=== PATIENT | female | born 1960 | race Caucasian/White ===

== ENCOUNTER → 2020-05-19 11:07 | Outpatient (BNVA) | payer OTHER, SELFPAY | PROVIDERS: PCP Internal Medicine; Visit Provider Surgery | DX: K42.9 Umbilical hernia without obstruction or gangrene (principal); M62.08 Separation of muscle (nontraumatic), other site | CPT/HCPCS: 99202 ==

== ENCOUNTER 2020-06-28 06:02 | Day surgery (SDC) | payer OTHER, SELFPAY ==
[2020-06-22 11:20] VITALS: BMI 30.2
--- NOTE | 2020-06-27 08:29 | HO.ANESPROP2 ---
Documented by User: Sol Yusuf 06/27/20 08:29 HPI - Anesthesia Eval Consult details Narrative: 60yo F for Hernia Repair Umbilical, Poss Mesh PMFSH Active Problems Active Problems: All Active Problems (Updated 06/22/20 @ 11:11 by Kayleigh Rogel) Diastasis recti (Acute) Umbilical hernia (Acute) Compression fracture of L1 lumbar vertebra (Acute) Dupuytren's contracture of left hand (Acute) Essential hypertension (Acute) Ventral hernia (Acute) Urinary incontinence (Acute) PTSD (post-traumatic stress disorder) (Acute) Bipolar 2 disorder (Acute) Past Medical History Medical History Anxiety Arthritis Bipolar 2 disorder Compression fracture of L1 lumbar vertebra Diastasis recti Dupuytren's contracture of left hand Essential hypertension Lumbar disc herniation On beta baldemar at home PTSD (post-traumatic stress disorder) Umbilical hernia Urinary incontinence Ventral hernia Family History Family History Father Diabetes mellitus Mother COPD (chronic obstructive pulmonary disease) Sister Diabetes mellitus Glaucoma Surgical History Surgical History History of lumbar fusion Hx of colonoscopy Hx of elbow surgery Hx of repair of left rotator cuff Social History Social History Are you a primary child care lead teacher to a significant other at home: No Alcohol intake: current Alcohol intake frequency: a few times a week Smoking Status: Never smoker Are you DNR?: No Advance Directives: No Advance Directives Information Provided: No Advance Directives on File: No Recently lost weight without trying: No Eating poorly because of decreased appetite: No Nutrition Risks: No Nutritional Risk Meds Allergies Allergy/AdvReac Type Severity Reaction Status Date / Time No Known Allergies Allergy Verified 06/22/20 11:12 [No Known Allergies*] Home Medications Medication Instructions Recorded Confirmed Last Taken Type clonazepam 0.5 mg tablet 0.5 mg PO BEDTIME 04/26/20 06/22/20 06/28/20 History risperidone 2 mg tablet 2 mg PO BID 04/26/20 06/22/20 06/28/20 History vortioxetine 5 mg tablet 5 mg PO DAILY 04/26/20 06/22/20 Unknown History hydroxyzine pamoate 25 mg capsule 25 mg PO BID 05/19/20 06/22/20 Unknown History sertraline 1 tab PO QAM 06/22/20 06/22/20 Unknown History Exam Exam Date and Time: June 27, [id number] Height,Weight and Vital Signs: Height 5 ft 2 in Weight 75.07 kg Assessment and Plan Assessment Anesthesia Assessment: Chart Reviewed Documented by User: Dee Dee Vallejo 06/28/20 07:11 [facility] Past Medical History Medical History Anxiety Arthritis Bipolar 2 disorder Compression fracture of L1 lumbar vertebra Diastasis recti Dupuytren's contracture of left hand Essential hypertension Lumbar disc herniation On beta baldemar at home PTSD (post-traumatic stress disorder) Umbilical hernia Urinary incontinence Ventral hernia Family History Family History Father Diabetes mellitus Mother COPD (chronic obstructive pulmonary disease) Sister Diabetes mellitus Glaucoma Surgical History Surgical History History of lumbar fusion Hx of colonoscopy Hx of elbow surgery Hx of repair of left rotator cuff Social History Social History Are you a primary child care lead teacher to a significant other at home: No Alcohol intake: current Alcohol intake frequency: a few times a week Smoking Status: Never smoker Are you DNR?: No Advance Directives: No Advance Directives Information Provided: No Advance Directives on File: No Recently lost weight without trying: No Eating poorly because of decreased appetite: No Nutrition Risks: No Nutritional Risk Meds Allergies Allergy/AdvReac Type Severity Reaction Status Date / Time No Known Allergies Allergy Verified 06/22/20 11:12 [No Known Allergies*] Home Medications Medication Instructions Recorded Confirmed Last Taken Type clonazepam 0.5 mg tablet 0.5 mg PO BEDTIME 04/26/20 06/22/20 06/28/20 History risperidone 2 mg tablet 2 mg PO BID 04/26/20 06/22/20 06/28/20 History vortioxetine 5 mg tablet 5 mg PO DAILY 04/26/20 06/22/20 Unknown History hydroxyzine pamoate 25 mg capsule 25 mg PO BID 05/19/20 06/22/20 Unknown History sertraline 1 tab PO QAM 06/22/20 06/22/20 Unknown History Exam Airway Mallampati Class: II TM Dist: >3cm Neck ROM: Full Denture: Upper Assessment and Plan Assessment Anesthesia Assessment: Anesthesia Plan Discussed and Chart Reviewed Final Anesthetic Review NPO: Yes ASA Class: II Final Preanesthetic Review: No Changes in Pt Med Stat, Meds/Allgs Chart Reviewed, Consent Obtained/Reviewed and Anes Risks/Benef Reviewed Patient Risk: Low Procedure Risk: Low Assessment/Block/Sedation in SS: Assess/Block/Sedation-SS Anesthetic Plan Anesthetic Plan: GA Disposition: Standard PACU
[2020-06-28 06:13] VITALS: BP 149/73; PULSE 85; RESP 20; TEMP 36.3; O2SAT 97
[2020-06-28] MEDS: Lactated Ringers 1,000 ML 100 ML IVCONT (06:32)
--- NOTE | 2020-06-28 07:24 | MHC.SHP ---
Pre-Procedural Eval Section B Chief Complaint: Umbilical Hernia Allergies: Allergies Allergy/AdvReac Type Severity Reaction Status Date / Time No Known Allergies Allergy Verified 06/22/20 11:12 [No Known Allergies*] Plan I have reviewed the history and physical and performed a pertinent physical examination on my patient. No changes have occurred unless specified.
--- NOTE | 2020-06-28 08:17 | P.OP_ITS ---
Operative Note Operative Note Date of Service: 06/28/20 Narrative: Preop diagnosis: Umbilical hernia Postop diagnosis: Umbilical hernia Major: Repair of umbilical hernia with Ventralex mesh Surgeon: Carmelo Viveros MD Blacksmith Helper: ALEX Olvera student The patient is a 60-year-old female who was seen in the office because of an umbilical hernia. This was reducible. She wanted to proceed with repair. She understood technique of repair with mesh placement. She was aware of the risks, benefits, and alternatives. She was brought to the operating room and placed supine on the table under general anesthesia via laryngeal mask airway. The umbilical area was prepped and draped in the usual sterile fashion. Surgical time-out was done. The patient received cefazolin 2 g IV preoperatively I infiltrated the planned line of incision on the supraumbilical area lidocaine 1%. I made a transverse curvilinear incision using a blade 15. This was carried down to the full-thickness of skin and subcutaneous fat until we visualized fascia. I lifted the umbilicus as a flap off of the fascia with sharp dissection using the Metzenbaum scissors. By doing so we were able to expose the entire hernia. This contained fat. I dissected fibrous adhesions tethering the herniated fat from the fascial edge using Metzenbaum scissors. By doing so, I was able to release the hernia from the fascia circumferentially and was able to reduce this completely. I applied a [place] clamp to the fascial edge. The fascial defect was about 1.5 cm in diameter. I examined the underside of the fascial edge and did some blunt dissection to make sure that we had enough space for the mesh. I then positioned a small sized Ventralex mesh under the fascia. This was flattened. I then secured this mesh with Prolene 2-0 sutures from the fascial edge to the Prolene straps on each side. The Prolene straps were then trimmed. I closed the fascia with a [id number] Maxon 1 stitch. I tucked the umbilicus to the fascia with a Dexon 3-0 states to recreate the dimple. I closed the skin with running subcuticular Dexon 4-0 stitch. Infiltrated the area with Marcaine 0.5% for postop analgesia. Steri-Strips and dressings were applied The procedure was then completed. The patient tolerated the procedure well. There were no complications noted. Initial and final counts of sponges and instruments were correct. Estimated blood loss was about 2 cc. The patient is extubated without difficulty and transferred to the recovery room with stable vital signs.
[2020-06-28 08:18] VITALS: BP 110/77; PULSE 85; RESP 16; TEMP 36.4; O2SAT 100
[2020-06-28 08:23] VITALS: BP 109/65; PULSE 87; RESP 16; O2SAT 100
--- NOTE | 2020-06-28 08:25 | P.BOP_ITS ---
Brief Operative Note Date of Service: 06/28/20 Pre-op diagnosis: Umbilical hernia Post-op diagnosis: same Procedure: Repair of umbilical hernia with Ventralex mesh Surgeon: Carmelo Viveros MD Anesthesia: GLMA Was an Radiation Protection Specialist used for this Procedure?: No Estimated blood loss (mL): 2 Pathology: none sent Condition: stable Disposition: PACU
[2020-06-28 08:28] VITALS: BP 106/65; PULSE 80; RESP 16; O2SAT 100
[2020-06-28 08:33] VITALS: BP 96/51; PULSE 84; RESP 16; O2SAT 94
[2020-06-28 08:48] VITALS: BP 115/68; PULSE 79; RESP 16; TEMP 36.4; O2SAT 95
== END 2020-06-28 09:11 | disposition home or self-care (01) ==
PROVIDERS: PCP Internal Medicine; Visit Provider Surgery
PROC: (CPT 49585; principal; 2020-06-28 07:30)
DX: K42.9 Umbilical hernia without obstruction or gangrene (principal); K66.0 Peritoneal adhesions (postprocedural) (postinfection); M62.08 Separation of muscle (nontraumatic), other site; I10 Essential (primary) hypertension; F31.81 Bipolar II disorder; F43.10 Post-traumatic stress disorder, unspecified; Z79.899 Other long term (current) drug therapy; Z87.891 Personal history of nicotine dependence
CPT/HCPCS: 49585; C1781; J0690; J1100; J1170; J1885; J2250; J2405; J3010

== ENCOUNTER 2021-01-13 08:20 | Outpatient (REF) | payer OTHER, SELFPAY ==
[2021-01-13 12:28] LABS: Alanine Aminotransferase 35 U/L (0-31); Alkaline Phosphatase 92 U/L (39-117); Aspartate Amino Transferase 26 U/L (5-31); Bilirubin Direct < 0.2 mg/dL (0.0-0.5); Bilirubin Total 0.4 mg/dL (0.0-1.0)
== END 2021-01-13 08:21 | disposition home or self-care (01) ==
LOC: HO.HMGCLDS 08:20
PROVIDERS: Visit Provider Podiatrist
DX: B35.1 Tinea unguium (principal)
CPT/HCPCS: 36415; 80076

== ENCOUNTER 2021-05-26 11:35 | Observation (INO) | payer OTHER, SELFPAY ==
--- NOTE | ~2021-05-26 | NM_ITS ---
Lexiscan Myocardial perfusion study Indication: Abnormal EKG, assess for coronary disease and ischemia Technique: The patient was brought in for a Lexiscan perfusion study on 05/31/2021 and was injected 0.4 mg of Lexiscan intravenously. Within a minute of this injection 25 mCi of sestamibi was given intravenously. Images were obtained using the SPECT gamma camera interlaced with the gating device. Images were obtained in supine position. Resting perfusion study was performed on 05/30/2021. Patient was administered 25 mCi of sestamibi intravenously at rest. Images were then obtained in supine position. Total DLP 87mGy- Images were processed with the software and compared side to side in short axis, horizontal long axis and vertical long axis views. Findings: Raw acquisition was reviewed. The stress perfusion study showed no significant perfusion abnormality. With CT attenuation correction, that is overall diminished perfusion in all areas and hence likely technical. The gated study shows normal LV systolic function with calculated LVEF of 48%, but visually > 60%. LV cavity is normal in size. The gated study shows normal wall thickening and contraction of segments. Resting study shows no significant perfusion abnormality. Gating at rest reveals normal wall motion with ejection fraction at 70%. The findings are consistent with no reversible or fixed perfusion defects. NM/NM norm perf SPECT rest & str Impression: 1. Myocardial perfusion imaging study shows normal myocardial perfusion. 2. Gated LVEF is 70% during rest. Stress perfusion calculated at 48% but visually appears much higher. 3. Transient ischemic dilatation not present. EKG component of the test reported separately.
--- NOTE | 2021-05-26 11:41 | ED.PSYCH ---
HPI - Psych General Chief Complaint: Psychiatric Symptoms Stated Complaint: crisis Time Seen by Provider: 05/26/21 11:40 Source: patient Mode of arrival: EMS Limitations: no limitations History of Present Illness MD complaint: suicidal ideation and feels depressed Onset (ago): week(s) Duration: getting worse History of same: Yes Relieving factors: none Exacerbating factors: none Associated psychiatric symptoms: depression and suicidal ideation Associated symptoms: denies other symptoms Treatments prior to arrival: placed on mental health hold If self harm: admits thoughts of self harm and has plan Related Data Home Medications Medication Instructions Recorded Confirmed clonazepam 0.5 mg tablet 0.5 mg PO BEDTIME 04/26/20 06/22/20 risperidone 2 mg tablet 2 mg PO BID 04/26/20 06/22/20 vortioxetine 5 mg tablet 5 mg PO DAILY 04/26/20 06/22/20 (Trintellix) hydroxyzine pamoate 25 mg capsule 25 mg PO BID 05/19/20 06/22/20 sertraline 100 mg tablet 1 tab PO QAM 06/22/20 06/22/20 Previous Rx's Medication Instructions Recorded ibuprofen 600 mg tablet 600 mg PO Q6H PRN #30 tab 06/28/20 oxycodone-acetaminophen 5 mg-325 1 - 2 tab PO Q4-6H PRN #30 tab 06/28/20 mg tablet (Percocet) lisinopril 20 mg tablet 20 mg PO QAM #90 tab 01/20/21 metoprolol succinate 50 mg 50 mg PO DAILY #90 tab 01/20/21 tablet,extended release 24 hr Allergies Allergy/AdvReac Type Severity Reaction Status Date / Time No Known Allergies Allergy Verified 06/22/20 11:12 [No Known Allergies*] Review of Systems Review of Systems: Constitutional : No Fever, No Chills ENT/Mouth : No Ear Pain, No Nasal Congestion, No sore throat Eyes: No Eye Pain, No Swelling, No Redness Cardiovascular : No Chest Pain, No SOB Respiratory : No Cough, No Sputum, No Dyspnea Gastrointestinal : No Nausea, No Vomiting, No Diarrhea, No Hematochezia, No Melena Genitourinary : No Dysuria, No Urinary Frequency, No Hematuria Musculoskeletal : No Myalgias Skin : No Skin Lesions, No rash Neuro : No Weakness, No Numbness, No Paresthesias, No Dizziness, No Headache Psych : positive Anxiety, positive Depression, positive SI no HI Heme/Lymph: No Lymphadenopathy Endocrine : No Polyuria, No Polydipsia All other systems reviewed and are negative [facility] Past Medical History Source: old records reviewed Medical History Anxiety Arthritis Bipolar 2 disorder Compression fracture of L1 lumbar vertebra Diastasis recti Dupuytren's contracture of left hand Essential hypertension Hx of suicide attempt Lumbar disc herniation On beta baldemar at home PTSD (post-traumatic stress disorder) Umbilical hernia Urinary incontinence Ventral hernia Surgical History History of lumbar fusion Hx of colonoscopy Hx of elbow surgery Hx of repair of left rotator cuff Family History Family History Father Diabetes mellitus Mother COPD (chronic obstructive pulmonary disease) Sister Diabetes mellitus Glaucoma Social History Social History (Updated 05/26/21 @ 11:53 by Radha Forde DO) Are you a primary managed care liaison to a significant other at home: No Alcohol intake: current Alcohol intake frequency: a few times a week Patient Tobacco Use Status: Tobacco use Unknown Advance Directives: No Advance Directives Information Provided: No Patient : Yes Physical Exam Vital Signs: Vital Signs: Last Vital Signs Temp 97.9 F 05/26/21 12:08 Pulse 87 05/26/21 13:34 Resp 15 05/26/21 13:34 BP 102/72 05/26/21 13:34 Pulse Ox 99 05/26/21 13:34 BMI result Body Mass Index 28.0 Appearance: Alert. Oriented X3. No acute distress. I do not want to live Agitated at times, talks loudly Eyes: Pupils equal, round and reactive to light. ENT: Pharynx normal. Neck: Normal inspection. Neck supple. CVS: Normal heart rate and rhythm. Pulses normal. Respiratory: No respiratory distress. Breath sounds normal. Abdomen: Soft and nontender. Skin: Skin warm and dry. Normal skin color. Normal skin turgor. Extremities: No lower extremity edema. No calf ttp Neuro: Oriented X 3. No motor deficit. No sensory deficit. Cn2-12 intact Course Course Course Narrative: Physician observation started at 201pm. Patient placed in physician observation because the patient needed more time for labs to be done as well as placement given bed search. At the time observation was started the patient's vitals were stable, patient is alert and oriented but slightly agitated, Neuro: nonfocal, CV RRR, Lungs clear MDM - Psych MDM Narrative Medical decision making narrative: 61 yo female with hx of HTN, PTSD, bipolar here with SI and plan to kill herself. Section 12 from community and bed search already in place. She denies any medical issues at this time, requesting anxiety medication. Will obtain labs, PO anxiolytic. Dispo pending bed search. Lab Data Labs: Lab Results 05/26/21 05/26/21 05/26/21 Range/Units 13:01 13:01 13:01 Urine Color YELLOW Urine Appearance CLEAR Urine pH 6.5 (5.0-8.0) Ur Specific [place] <= 1.005 (1.005-1.025) Urine Protein NEG (NEG-TRACE) MG/DL Urine Glucose (UA) NEG (NEG) MG/DL Urine Ketones NEG (NEG) MG/DL Urine Blood NEG (NEG) Urine Nitrite NEG (NEG) Ur Leukocyte Esterase NEG (NEG) Urine Opiates Screen Not Detected (Not Detect) Urine Fentanyl Screen Not Detected (Not Detect) Ur Barbiturates Screen Not Detected (Not Detect) Ur Phencyclidine Scrn Not Detected (Not Detect) Ur Amphetamines Screen Not Detected (Not Detect) U Benzodiazepines Scrn Not Detected (Not Detect) Urine Cocaine Screen Not Detected (Not Detect) U Marijuana (THC) Screen Not Detected (Not Detect) COVID-19 ([facility]O) Negative (Negative) COVID-19 Clin Com See Note Discharge Plan Discharge Clinical Impression: Suicidal ideation Patient Disposition: Still a Patient Prescriptions: No Action lisinopril 20 mg tablet 20 mg PO QAM Qty: 90 0RF metoprolol succinate 50 mg tablet extended release 24 hr 50 mg PO DAILY Qty: 90 0RF sertraline 100 mg tablet 1 tab PO QAM 0RF oxycodone-acetaminophen [Percocet] 5-325 mg tablet 1 - 2 tab PO Q4-6H PRN (Reason: pain) Qty: 30 0RF ibuprofen 600 mg tablet 600 mg PO Q6H PRN (Reason: pain) Qty: 30 0RF Trintellix 5 mg tablet 5 mg PO DAILY 0RF risperidone 2 mg tablet 2 mg PO BID 0RF clonazepam 0.5 mg tablet 0.5 mg PO BEDTIME 0RF Rx Instructions: administer 30 minutes before bedtime hydroxyzine pamoate 25 mg capsule 25 mg PO BID 0RF
[2021-05-26] MEDS: clonazePAM 1 MG TABLET PO (11:56)
[2021-05-26 12:08] VITALS: BP 160/98; BP 180/141; PULSE 85; PULSE 90; RESP 20; TEMP 36.6; O2SAT 98; O2SAT 99; BMI 28.0
[2021-05-26 13:15] LABS: Appearance Urine CLEAR; Color Urine YELLOW; Glucose Urine UA NEG (NEG); Leukocyte Esterase Urine NEG (NEG); Nitrite Urine NEG (NEG); PH 6.5 (5.0-8.0); Specific Gravity - Urine <= 1.005 (1.005-1.025); Urine Blood NEG (NEG); Urine Ketones NEG (NEG); Urine Protein NEG (NEG-TRACE)
[2021-05-26 13:33] LABS: COVID-19 Test Negative (Negative); IDNOW Serial# 16C4AD1C
[2021-05-26 13:34] VITALS: BP 102/72; PULSE 87; RESP 15; O2SAT 99
[2021-05-26 13:39] LABS: Amphetamine Screen Urine Not Detected (Not Detect); Barbiturates, Urine Not Detected (Not Detect); Benzodiazepines Screen Urine Not Detected (Not Detect); Cannabinoid Screen Urine Not Detected (Not Detect); Cocaine Screen Urine Not Detected (Not Detect); Fentanyl, urine Not Detected (Not Detect); Opiate Screen Urine Not Detected (Not Detect); Phencyclidine Screen Urine Not Detected (Not Detect)
[2021-05-26 14:08] LABS: MANUAL DIFF FLAG NO
[2021-05-26 14:10] LABS: Basophils Absolute Auto 0.1 X10*3/uL (0.0-0.2); Basophils Percent Auto 0.3 % (0-2); Eosinophils Absolute Auto 0.1 X10*3/uL (0.0-0.4); Eosinophils Percent Auto 0.4 % (0-4); Hematocrit 43.3 % (37.0-47.0); Hemoglobin 14.7 g/dl (12.0-16.0); Imm Gran Abs Auto 0.07 X10*3/uL (0.00-0.03); Imm Gran Pct Auto 0.5 % (0.0-0.4); Lymphocytes Absolute Auto 1.8 X10*3/uL (1.2-4.9); Lymphocytes Percent Auto 12.5 % (20-40); Mean Corpuscular HGB Conc 33.9 g/dl (31.0-35.0); Mean Corpuscular Hemoglobin 30.3 pg (27.0-33.0); Mean Corpuscular Volume 89.3 fL (80.0-98.0); Monocytes Absolute Auto 0.3 X10*3/uL (0.1-1.2); Neutrophils Absolute Auto 12.4 x10*3/uL (2.0-8.3); Neutrophils Percent Auto 84.3 % (45-73); Platelet Count 353 X10*3/uL (160-400); Red Blood Count 4.85 X10*6/uL (4.20-5.50); Red Cell Distribution Width 12.1 % (11.0-16.0); White Blood Count 14.7 X10*3/uL (4.8-10.8)
[2021-05-26 14:23] LABS: Ethanol < 10 mg/dL
[2021-05-26 14:27] LABS: Alanine Aminotransferase 34 U/L (0-31); Albumin Level 4.4 g/dL (3.5-5.0); Alkaline Phosphatase 92 U/L (39-117); Anion Gap 14 (12-20); Aspartate Amino Transferase 19 U/L (5-31); Bilirubin Direct 0.2 mg/dL (0.0-0.5); Bilirubin Total 0.5 mg/dL (0.0-1.0); Blood Urea Nitrogen 10 mg/dL (9-16); Calcium 10.2 mg/dL (8.4-10.2); Carbon Dioxide 26 mmol/L (22-29); Chloride 97 mmol/L (96-108); Creatinine Clr Calc Pharmacy 77.9; Estimated Glomerular Filt Rate > 60; Glucose Random 87 mg/dL (60-115); Sodium 133 mmol/L (135-145); Total Protein 7.6 g/dL (6.5-8.0)
[2021-05-26 18:00] VITALS: BP 147/92; PULSE 71; RESP 20; TEMP 37.1; O2SAT 97
[2021-05-26] MEDS: Melatonin 3 MG TABLET 6 MG PO (20:03)
[2021-05-26] MEDS: Mirtazapine 7.5 MG TABLET PO (20:03)
[2021-05-26] MEDS: QUEtiapine Fumarate 50 MG TABLET PO (20:03)
[2021-05-27 02:42] VITALS: BP 107/68; PULSE 82; RESP 17; TEMP 37.1; O2SAT 97
[2021-05-27] MEDS: Metoprolol Succinate ER 50 MG TAB.ER.24H PO (08:34)
[2021-05-27] MEDS: Multivitamin TABLET 1 TAB PO (08:35)
[2021-05-27] MEDS: Thiamine HCL 100 MG TABLET PO (08:35)
[2021-05-27] MEDS: Docusate Sodium 100 MG CAPSULE PO (08:35)
[2021-05-27 09:11] VITALS: BP 128/83; PULSE 86; RESP 18; TEMP 36.8; O2SAT 96
--- NOTE | 2021-05-27 19:05 | PC.NURSE ---
Took report from Lupis to assume care of Pt, Pt resting and watching tv, Pt calm/cooperative at this time, safety maintained, this RN continues to monitor.
[2021-05-27] MEDS: Melatonin 3 MG TABLET 6 MG PO (21:21)
[2021-05-27] MEDS: Mirtazapine 7.5 MG TABLET PO (21:21)
--- NOTE | 2021-05-27 21:25 | PC.NURSE ---
Pt took bedtime meds without incident, Pt calm/cooperative, safety maintained, this RN continues to monitor.
[2021-05-27] MEDS: QUEtiapine Fumarate 50 MG TABLET PO (21:30)
--- NOTE | 2021-05-28 00:06 | PC.NURSE ---
Pt sleeping, chest rise and fall observed, safety maintained, this RN continues to monitor.
[2021-05-28 02:06] VITALS: BP 112/79; PULSE 88; RESP 17; TEMP 37.1; O2SAT 95
--- NOTE | 2021-05-28 04:32 | PC.NURSE ---
Pt awake to use restroom, Pt calm/cooperative at this time, safety maintained, this RN continues to monitor.
--- NOTE | 2021-05-28 06:36 | PC.NURSE ---
Pt resting watching tv, safety maintained, this RN continues to monitor.
[2021-05-28] MEDS: Thiamine HCL 100 MG TABLET PO (08:52)
[2021-05-28] MEDS: Docusate Sodium 100 MG CAPSULE PO (08:52)
[2021-05-28] MEDS: Metoprolol Succinate ER 50 MG TAB.ER.24H PO (08:52)
[2021-05-28] MEDS: Multivitamin TABLET 1 TAB PO (08:52)
[2021-05-28 09:53] VITALS: BP 136/87; PULSE 75; RESP 18; TEMP 36.8; O2SAT 100
--- NOTE | 2021-05-28 14:09 | PC.NURSE ---
pt calm and cooperative, spending time in her room, NAD at this time. will continue to monitor. pt awaiting inpatient bed.
[2021-05-28 15:53] VITALS: BP 140/83; PULSE 80; RESP 15; TEMP 36.8; O2SAT 98
[2021-05-28] MEDS: Mirtazapine 7.5 MG TABLET PO (20:31)
[2021-05-28] MEDS: Melatonin 3 MG TABLET 6 MG PO (20:31)
[2021-05-28] MEDS: QUEtiapine Fumarate 50 MG TABLET PO (20:35)
[2021-05-28 20:36] VITALS: RESP 16
[2021-05-28 23:15] VITALS: BP 132/76; PULSE 84; RESP 16; TEMP 36; O2SAT 97
--- NOTE | 2021-05-29 | ECG_ITS ---
Test Reason : MEDICAL CLEARANCE Blood Pressure : / mmHG Vent. Rate : 066 BPM Atrial Rate : 066 BPM P-R Int : 146 ms QRS Dur : 082 ms QT Int : 416 ms P-R-T Axes : 050 030 145 degrees QTc Int : 436 ms Normal sinus rhythm ST & Marked T wave abnormality, consider anterolateral ischemia Abnormal ECG When compared with ECG of 18-APR-2019 05:46, T wave inversion now evident in Anterolateral leads Referred By: Aamir Jarrell Electronically Signed By:AAMIR JARRELL MD
--- NOTE | 2021-05-29 03:06 | PC.NURSE ---
pt awoke up states she is unable to sleep and suffer from insomnia. pt states she needs complete quiet not even a tick of a clock can be heard. intervention headphones given. michael met at bedside. pt is calm and cooperative, ambulates to bathroom with steady gait. skin pink warm and dry.
[2021-05-29 09:02] VITALS: BP 155/91; PULSE 83; RESP 19; TEMP 37.2; O2SAT 100
[2021-05-29] MEDS: Docusate Sodium 100 MG CAPSULE PO (09:04)
[2021-05-29] MEDS: QUEtiapine Fumarate 25 MG TABLET PO (09:04)
[2021-05-29] MEDS: Multivitamin TABLET 1 TAB PO (09:04)
[2021-05-29] MEDS: Metoprolol Succinate ER 50 MG TAB.ER.24H PO (09:04)
[2021-05-29] MEDS: Thiamine HCL 100 MG TABLET PO (09:04)
[2021-05-29 12:59] LABS: COVID-19 Test Negative (Negative); IDNOW Serial# 16C4AD1C
[2021-05-29 16:24] VITALS: BP 129/90; PULSE 87; RESP 18; TEMP 37.6; O2SAT 97
[2021-05-29 17:46] LABS: MANUAL DIFF FLAG NO
[2021-05-29 17:52] LABS: Basophils Absolute Auto 0.1 X10*3/uL (0.0-0.2); Basophils Percent Auto 0.4 % (0-2); Eosinophils Absolute Auto 0.1 X10*3/uL (0.0-0.4); Eosinophils Percent Auto 0.6 % (0-4); Hematocrit 40.4 % (37.0-47.0); Hemoglobin 13.5 g/dl (12.0-16.0); Imm Gran Abs Auto 0.05 X10*3/uL (0.00-0.03); Imm Gran Pct Auto 0.4 % (0.0-0.4); Lymphocytes Absolute Auto 2.5 X10*3/uL (1.2-4.9); Lymphocytes Percent Auto 22.2 % (20-40); Mean Corpuscular HGB Conc 33.4 g/dl (31.0-35.0); Mean Corpuscular Volume 89.8 fL (80.0-98.0); Mean Platelet Volume 9.8 fL (9.4-12.3); Monocytes Absolute Auto 0.5 X10*3/uL (0.1-1.2); Monocytes Percent Auto 4.5 % (2-11); Neutrophils Absolute Auto 8.1 x10*3/uL (2.0-8.3); Neutrophils Percent Auto 71.9 % (45-73); Platelet Count 373 X10*3/uL (160-400); Red Cell Distribution Width 12.2 % (11.0-16.0); White Blood Count 11.3 X10*3/uL (4.8-10.8)
[2021-05-29 18:07] LABS: Troponin-I High Sensitivity 4.5 ng/L (<3.5-17.0)
[2021-05-29 18:10] LABS: Prothrombin Time 11.3 SEC (9.9-13.0)
[2021-05-29 18:11] LABS: Anion Gap 13 (12-20); Blood Urea Nitrogen 10 mg/dL (9-16); Calcium 9.9 mg/dL (8.4-10.2); Carbon Dioxide 26 mmol/L (22-29); Chloride 98 mmol/L (96-108); Creatinine Clr Calc Pharmacy 72.9; Estimated Glomerular Filt Rate > 60; Glucose Random 95 mg/dL (60-115); Potassium 4.9 mmol/L (3.3-5.1); Sodium 132 mmol/L (135-145)
[2021-05-29 18:13] LABS: Partial Thromboplastin Time 35.9 SEC (24.1-38.0)
--- NOTE | 2021-05-29 20:10 | PM.IMHP ---
History of Present Illness Date of Service: 05/29/21 Chief Complaint: SI Is a 61-year-old female with a past medical history of anxiety, depression, bipolar disorder, and hypertension who presents to the hospital with complaints of suicidal ideation. Patient was planned for admission to [facility] and has been waiting a bed in the ED for the past 3 days. Patient finally received a bed assignment at the [facility] today but a routine EKG for admission was done which showed significant abnormality including T-wave inversions in V2 V3 V4 V5 V6, lead [address] depression in the lateral leads. This case was discussed with Cardiology, and Cardiology recommended observation in the medical unit and echo in the morning. Patient herself is complaining of anxiety and insomnia for the past 3 nights while waiting a bed at [facility] but otherwise denies any chest pain, no shortness of breath, no palpitations, no history of chest pain, no abdominal pain nausea or vomiting, no diarrhea or constipation, no urinary symptoms and no lower extremity edema. Patient has no headache, no change in vision, no numbness tingling or weakness. Vitals reviewed for today show no significant abnormality, labs reviewed showed WBC count of 11.3, labs otherwise unremarkable EKG as described above Review of Systems Review of Systems: Yes all other systems are reviewed and are negative [facility] Medical History Anxiety Arthritis Bipolar 2 disorder Compression fracture of L1 lumbar vertebra Diastasis recti Dupuytren's contracture of left hand Essential hypertension Hx of suicide attempt Lumbar disc herniation On beta baldemar at home PTSD (post-traumatic stress disorder) Umbilical hernia Urinary incontinence Ventral hernia Family History Father Diabetes mellitus Mother COPD (chronic obstructive pulmonary disease) Sister Diabetes mellitus Glaucoma Surgical History History of lumbar fusion Hx of colonoscopy Hx of elbow surgery Hx of repair of left rotator cuff Social History Are you a primary childcare aide to a significant other at home: No Alcohol intake: current Alcohol intake frequency: a few times a week Patient Tobacco Use Status: Tobacco use Unknown Advance Directives: No Advance Directives Information Provided: No Patient : Yes Meds Allergies Allergy/AdvReac Type Severity Reaction Status Date / Time No Known Allergies Allergy Verified 06/22/20 11:12 [No Known Allergies*] Active Medications: Current Medications Acetaminophen (Acetaminophen 325 Mg Tablet) 650 mg PO Q6H PRN PRN Reason: Headache/Pain Mild Scale (1-3) Al Hydroxide/Mg Hydroxide (Magnesium Hydrox/Alum Hydrox 30 Ml Oral.Susp) 30 ml PO Q6H PRN PRN Reason: Heartburn/Nausea Docusate Sodium (Docusate Sodium 100 Mg Capsule) 100 mg PO DAILY [facility] Last Admin: 05/29/21 09:04 Dose: 100 mg Documented by: Hydroxyzine HCl (Hydroxyzine Hcl 25 Mg Tablet) 25 mg PO BEDTIME PRN PRN Reason: Anxiety Magnesium Hydroxide (Milk Of Magnesia 30 Ml Oral.Susp) 30 ml PO DAILY PRN PRN Reason: Constipation Melatonin (Melatonin 3 Mg Tablet) 6 mg PO BEDTIME [facility] Last Admin: 05/28/21 20:31 Dose: 6 mg Documented by: Metoprolol Succinate (Metoprolol Succinate Er 50 Mg Tab.Er.24h) 50 mg PO DAILY [facility]; Protocol Last Admin: 05/29/21 09:04 Dose: 50 mg Documented by: Mirtazapine (Mirtazapine 7.5 Mg Tablet) 7.5 mg PO BEDTIME [facility] Last Admin: 05/28/21 20:31 Dose: 7.5 mg Documented by: Multivitamins/Vitamin C (Multivitamin Tablet) 1 tab PO DAILY [facility] Last Admin: 05/29/21 09:04 Dose: 1 tab Documented by: Quetiapine Fumarate (Quetiapine Fumarate 25 Mg Tablet) 25 mg PO DAILY PRN PRN Reason: anxiety Last Admin: 05/29/21 09:04 Dose: 25 mg Documented by: Quetiapine Fumarate (Quetiapine Fumarate 50 Mg Tablet) 50 mg PO BEDTIME PRN PRN Reason: hallucinations Last Admin: 05/28/21 20:35 Dose: 50 mg Documented by: Thiamine HCl (Thiamine Hcl 100 Mg Tablet) 100 mg PO DAILY [facility] Last Admin: 05/29/21 09:04 Dose: 100 mg Documented by: Trazodone HCl (Trazodone Hcl 50 Mg Tablet) 50 mg PO BEDTIME PRN PRN Reason: Insomnia Home Medications Medication Instructions Recorded Confirmed Last Taken Type docusate sodium 100 mg capsule 100 mg PO DAILY 05/26/21 05/26/21 Unknown History (Colace) melatonin 3 mg tablet 2 tab PO BEDTIME 05/26/21 05/26/21 Unknown History metoprolol succinate 50 mg 1 tab PO DAILY 05/26/21 05/26/21 Unknown History tablet,extended release 24 hr mirtazapine 7.5 mg tablet 1 tab PO BEDTIME 05/26/21 05/26/21 Unknown History multivitamin 1 tab PO DAILY 05/26/21 05/26/21 Unknown History quetiapine 25 mg tablet 25 mg PO DAILY PRN 05/26/21 05/29/21 Unknown History quetiapine 50 mg tablet 1 - 2 tab PO BEDTIME PRN 05/26/21 05/26/21 Unknown History thiamine HCl (vitamin B1) 100 mg 1 tab PO DAILY 05/26/21 05/26/21 Unknown History tablet (Vitamin B-1) Physical Exam Vital Signs and Narrative: Vital Signs: Last Vital Signs Temp 99.7 F 05/29/21 16:24 Pulse 87 05/29/21 16:24 Resp 18 05/29/21 16:24 BP 129/90 H 05/29/21 16:24 Pulse Ox 97 05/29/21 16:24 BMI result Body Mass Index 28.0 Const: General: cooperative and no acute distress Orientation/consciousness: patient oriented x3 Eyes: General: appearance normal, both eyes and all related structures Pupils: Equal, round and reactive pupils present Resp: Effort & Inspection: normal respiratory effort Auscultation: clear to auscultation bilaterally Cardio: Rate: regular rate Rhythm: regular rhythm GI: Palpation (GI): Soft to palpation Auscultation: normal bowel sounds Skin: General skin exam: no rashes or lesions noted Neuro: General: patient oriented x3 Cranial nerves: Yes Equal, round and reactive pupils present Cognition (Neuro): normal cognition Extrem: General: Yes normal to inspection and Yes no pedal edema Results Labs CBC and Chem 7: 05/29/21 17:41 05/29/21 17:41 Labs: Laboratory Results - last 24 hr 05/29/21 05/29/21 05/29/21 12:21 17:41 17:41 MCV 89.8 MCH 30.0 MCHC 33.4 RDW 12.2 Plt Count 373 MPV 9.8 Immature Gran % (Auto) 0.4 Neut % (Auto) 71.9 Lymph % (Auto) 22.2 [place] % (Auto) 4.5 Eos % (Auto) 0.6 Baso % (Auto) 0.4 Lymph # (Auto) 2.5 [place] # (Auto) 0.5 Eos # (Auto) 0.1 Baso # (Auto) 0.1 Abs Immat Gran (auto) 0.05 H Absolute Neuts (auto) 8.1 Absolute Nucleated RBC 0.000 Nucleated RBC % (auto) 0.0 PT INR APTT Anion Gap 13 Estim Creat Clear Calc 72.9 Estimated GFR > 60 Random Glucose 95 Calcium 9.9 Total Creatine Kinase 22 L Troponin I High Sens COVID-19 ([facility]) Negative COVID-19 Clin Com See Note 05/29/21 05/29/21 17:41 17:41 MCV MCH MCHC RDW Plt Count MPV Immature Gran % (Auto) Neut % (Auto) Lymph % (Auto) [place] % (Auto) Eos % (Auto) Baso % (Auto) Lymph # (Auto) [place] # (Auto) Eos # (Auto) Baso # (Auto) Abs Immat Gran (auto) Absolute Neuts (auto) Absolute Nucleated RBC Nucleated RBC % (auto) PT 11.3 INR 1.0 APTT 35.9 Anion Gap Estim Creat Clear Calc Estimated GFR Random Glucose Calcium Total Creatine Kinase Troponin I High Sens 4.5 COVID-19 ([facility]) COVID-19 Clin Com ECG Interpretation: normal sinus rhythm T-wave inversions in V2 V3 V4 V5 V6, lead [address] depression in the lateral leads. Assessment and Plan (1) Abnormal ECG: Status: Acute (2) Suicidal ideation: Status: Acute Plan This is a 61-year-old female with past medical history of hypertension as well as anxiety and depression who presents to the hospital initially with suicidal ideation, routine EKG showed abnormal findings therefore she will be admitted to medical floor for further evaluation # abnormal EKG - EKG finding as above, patient does not have any acute complaints - troponin negative x1 - echocardiogram ordered - cardiology consulted - will admit to telemetry # suicidal ideation - patient accepted at [facility], - sitter at bedside - psych to follow # HTN - stable - resume home meds # Anxiety - will administer one dose of ativan - will continue seroquel DVT PPX: Lovenox Quality Stroke Does the patient have a stroke diagnosis?: No VTE Prior VTE?: No VTE Risk Level:: Medical - moderate - high VTE Device Contraindication: Treatment Not Indicated VTE Drug Contraindication: N/A - Med Ordered
[2021-05-29 21:34] LABS: Troponin-I High Sensitivity 5.5 ng/L (<3.5-17.0)
[2021-05-29] MEDS: Enoxaparin Sodium 40 MG/0.4 ML SYRINGE SUBCUT (21:37)
[2021-05-29] MEDS: Melatonin 3 MG TABLET 6 MG PO (21:37)
[2021-05-29] MEDS: Mirtazapine 7.5 MG TABLET PO (21:37)
[2021-05-29] MEDS: LORazepam 2 MG/ML VIAL 0.5 MG IVPUSH (21:37)
[2021-05-29] MEDS: Zolpidem Tartrate 5 MG TABLET PO (21:45)
[2021-05-29] MEDS: traZODone HCL 50 MG TABLET PO (21:46)
[2021-05-29] MEDS: hydrOXYzine HCL 25 MG TABLET PO (21:46)
[2021-05-29] MEDS: QUEtiapine Fumarate 50 MG TABLET PO (21:46)
[2021-05-29 23:41] VITALS: BMI 23.5
[2021-05-30] VITALS (7 sets, daily range): BP systolic 102–134; BP diastolic 63–84; PULSE 64–81; RESP 16–18; TEMP 36.1–37; O2SAT 96–99
--- NOTE | 2021-05-30 | CA_ITS ---
Acquisition Time: 2021-05-31 10:22:45 Total Exercise Time: 00:02:00 Test Indications: ABN EKG Medications: SEE CHART Protocol: LEXISCAN Max HR: 121 BPM 75% of Pred: 160 BPM Max BP: 118/070 mmHG Max Work Load: 1.0 METS Pharmacological stress test using Lexiscan while sitting and kicking her feet. Pt tolerated well, Denies any anginal sx. EKG with T wave inversion seen in lateral, inferior and some anterior leads seen at baseline, non-diagnostic for ischemia. Nuclear images to follow. Normotensive response to test. Test reviewed with Dr. Jarrell Referred By: Radha Forde Overread By: Ingrid Curtis NP
[2021-05-30 06:43] LABS: MANUAL DIFF FLAG NO
[2021-05-30 06:47] LABS: Basophils Percent Auto 0.5 % (0-2); Eosinophils Absolute Auto 0.1 X10*3/uL (0.0-0.4); Eosinophils Percent Auto 1.3 % (0-4); Hematocrit 36.1 % (37.0-47.0); Hemoglobin 12.2 g/dl (12.0-16.0); Imm Gran Abs Auto 0.04 X10*3/uL (0.00-0.03); Imm Gran Pct Auto 0.5 % (0.0-0.4); Mean Corpuscular HGB Conc 33.8 g/dl (31.0-35.0); Mean Corpuscular Volume 88.9 fL (80.0-98.0); Mean Platelet Volume 10.3 fL (9.4-12.3); Monocytes Absolute Auto 0.5 X10*3/uL (0.1-1.2); Monocytes Percent Auto 5.4 % (2-11); Neutrophils Absolute Auto 5.7 x10*3/uL (2.0-8.3); Neutrophils Percent Auto 68.3 % (45-73); Platelet Count 322 X10*3/uL (160-400); Red Blood Count 4.06 X10*6/uL (4.20-5.50); Red Cell Distribution Width 12.3 % (11.0-16.0); White Blood Count 8.3 X10*3/uL (4.8-10.8)
[2021-05-30 07:45] LABS: Alanine Aminotransferase 23 U/L (0-31); Albumin Level 3.6 g/dL (3.5-5.0); Alkaline Phosphatase 71 U/L (39-117); Anion Gap 12 (12-20); Aspartate Amino Transferase 14 U/L (5-31); Bilirubin Total 0.4 mg/dL (0.0-1.0); Blood Urea Nitrogen 10 mg/dL (9-16); Blood Urea Nitrogen 9 mg/dL (9-16); Calcium 9.2 mg/dL (8.4-10.2); Calcium 9.3 mg/dL (8.4-10.2); Carbon Dioxide 26 mmol/L (22-29); Chloride 100 mmol/L (96-108); Cholesterol 177 mg/dL; Creatinine Clr Calc Pharmacy 70.6; Creatinine Clr Calc Pharmacy 72.8; Estimated Glomerular Filt Rate > 60; Glucose Fasting 101 mg/dL (60-99); Glucose Random 103 mg/dL (60-115); HDL Cholesterol 40 mg/dL; LDL Cholesterol Calculated 102 mg/dl; Magnesium 1.7 mg/dL (1.6-2.6); Potassium 4.1 mmol/L (3.3-5.1); Potassium 4.4 mmol/L (3.3-5.1); Sodium 134 mmol/L (135-145); Triglycerides 178 mg/dL
[2021-05-30 07:54] LABS: Estimated Average Glucose 108 mg/dL; Hemoglobin A1c % 5.4 %
[2021-05-30 08:01] LABS: Free T4 (Free Thyroxine) 1.39 ng/dL (0.71-1.85); Thyroid Stimulating Hormone 2.28 uIU/mL (0.32-4.0)
[2021-05-30 09:06] LABS: Folate 14.9 ng/mL (> or = 4.0); Vitamin B12 501 pg/mL (200-900)
--- NOTE | 2021-05-30 09:11 | HO.PM.IMPN ---
Subjective Subjective Date of Service: 05/30/21 Interval History: ekg abnormal,SI Review of Systems Denies any chest pain shortness of breath or abdominal pain or fever or chills or cough or phlegm or nausea vomiting. Physical Exam Vital Signs: Vital Signs: Last Vital Signs Temp 97.6 F 05/30/21 07:30 Pulse 75 05/30/21 07:30 Resp 18 05/30/21 07:30 BP 134/84 05/30/21 07:30 Pulse Ox 99 05/30/21 07:30 BMI result Body Mass Index 23.5 Appearance: Alert.? Oriented X3.? not in distress.? cvs: rrr, [id number] , no murmur res: clear to auscultation ,no rhonchii or wheezing abd: no rebound or guarding ,nt, bs present. ext pulses present , no cyanosis . neuro: axo3 , nonfocal. Objective Data Active Medications Acetaminophen (Acetaminophen 325 Mg Tablet) 650 mg PO Q6H PRN PRN Reason: Headache/Pain Mild Scale (1-3) Al Hydroxide/Mg Hydroxide (Magnesium Hydrox/Alum Hydrox 30 Ml Oral.Susp) 30 ml PO Q6H PRN PRN Reason: Heartburn/Nausea Docusate Sodium (Docusate Sodium 100 Mg Capsule) 100 mg PO DAILY [facility] Last Admin: 05/29/21 09:04 Dose: 100 mg Documented by: TALIB Enoxaparin Sodium (Enoxaparin Sodium 40 Mg/0.4 Ml Syringe) 40 mg SUBCUT Q24H [facility] Last Admin: 05/29/21 21:37 Dose: 40 mg Documented by: LALA Hydroxyzine HCl (Hydroxyzine Hcl 25 Mg Tablet) 25 mg PO BEDTIME PRN PRN Reason: Anxiety Last Admin: 05/29/21 21:46 Dose: 25 mg Documented by: LALA Magnesium Hydroxide (Milk Of Magnesia 30 Ml Oral.Susp) 30 ml PO DAILY PRN PRN Reason: Constipation Melatonin (Melatonin 3 Mg Tablet) 6 mg PO BEDTIME [facility] Last Admin: 05/29/21 21:37 Dose: 6 mg Documented by: LALA Metoprolol Succinate (Metoprolol Succinate Er 50 Mg Tab.Er.24h) 50 mg PO DAILY [facility]; Protocol Last Admin: 05/29/21 09:04 Dose: 50 mg Documented by: TALIB Mirtazapine (Mirtazapine 7.5 Mg Tablet) 7.5 mg PO BEDTIME [facility] Last Admin: 05/29/21 21:37 Dose: 7.5 mg Documented by: LALA Multivitamins/Vitamin C (Multivitamin Tablet) 1 tab PO DAILY [facility] Last Admin: 05/29/21 09:04 Dose: 1 tab Documented by: TALIB Ondansetron HCl (Ondansetron Hcl 4 Mg/2 Ml Vial) 4 mg IVPUSH Q8H PRN PRN Reason: Nausea and Vomiting Quetiapine Fumarate (Quetiapine Fumarate 25 Mg Tablet) 25 mg PO DAILY PRN PRN Reason: anxiety Last Admin: 05/29/21 09:04 Dose: 25 mg Documented by: TALIB Quetiapine Fumarate (Quetiapine Fumarate 50 Mg Tablet) 50 mg PO BEDTIME PRN PRN Reason: hallucinations Last Admin: 05/29/21 21:46 Dose: 50 mg Documented by: LALA Sodium Chloride (0.9 % Sodium Chloride Flush 3 Ml Syringe) 3 ml IVFLUSH QSHIFT [facility] Last Admin: 05/30/21 00:35 Dose: Not Given Documented by: LAANIS Non-Admin Reason: Patient Asleep Thiamine HCl (Thiamine Hcl 100 Mg Tablet) 100 mg PO DAILY [facility] Last Admin: 05/29/21 09:04 Dose: 100 mg Documented by: TALIB Trazodone HCl (Trazodone Hcl 50 Mg Tablet) 50 mg PO BEDTIME PRN PRN Reason: Insomnia Last Admin: 05/29/21 21:46 Dose: 50 mg Documented by: LALA Zolpidem Tartrate (Zolpidem Tartrate 5 Mg Tablet) 5 mg PO BEDTIME PRN PRN Reason: Insomnia Last Admin: 05/29/21 21:45 Dose: 5 mg Documented by: LALA Labs CBC & Chem 7: 05/30/21 06:13 05/30/21 06:13 Labs: Laboratory Results - last 24 hr 05/29/21 05/29/21 05/29/21 12:21 17:41 17:41 MCV 89.8 MCH 30.0 MCHC 33.4 RDW 12.2 Plt Count 373 MPV 9.8 Immature Gran % (Auto) 0.4 Neut % (Auto) 71.9 Lymph % (Auto) 22.2 [place] % (Auto) 4.5 Eos % (Auto) 0.6 Baso % (Auto) 0.4 Lymph # (Auto) 2.5 [place] # (Auto) 0.5 Eos # (Auto) 0.1 Baso # (Auto) 0.1 Abs Immat Gran (auto) 0.05 H Absolute Neuts (auto) 8.1 Absolute Nucleated RBC 0.000 Nucleated RBC % (auto) 0.0 PT INR APTT Anion Gap 13 Estim Creat Clear Calc 72.9 Estimated GFR > 60 Random Glucose 95 Fasting Glucose Estimat Average Glucose Hemoglobin A1c % Calcium 9.9 Magnesium Total Bilirubin AST ALT Alkaline Phosphatase Total Creatine Kinase 22 L Troponin I High Sens Total Protein Albumin Triglycerides Cholesterol LDL Cholesterol, Calc HDL Cholesterol Vitamin B12 Folate TSH Free T4 COVID-19 ([facility]) Negative COVID-19 Clin Com See Note 05/29/21 05/29/21 05/29/21 17:41 17:41 20:51 MCV MCH MCHC RDW Plt Count MPV Immature Gran % (Auto) Neut % (Auto) Lymph % (Auto) [place] % (Auto) Eos % (Auto) Baso % (Auto) Lymph # (Auto) [place] # (Auto) Eos # (Auto) Baso # (Auto) Abs Immat Gran (auto) Absolute Neuts (auto) Absolute Nucleated RBC Nucleated RBC % (auto) PT 11.3 INR 1.0 APTT 35.9 Anion Gap Estim Creat Clear Calc Estimated GFR Random Glucose Fasting Glucose Estimat Average Glucose Hemoglobin A1c % Calcium Magnesium Total Bilirubin AST ALT Alkaline Phosphatase Total Creatine Kinase Troponin I High Sens 4.5 5.5 Total Protein Albumin Triglycerides Cholesterol LDL Cholesterol, Calc HDL Cholesterol Vitamin B12 Folate TSH Free T4 COVID-19 ([facility]) COVID-19 Clin Com 05/30/21 05/30/21 05/30/21 06:13 06:13 06:13 MCV MCH MCHC RDW Plt Count MPV Immature Gran % (Auto) Neut % (Auto) Lymph % (Auto) [place] % (Auto) Eos % (Auto) Baso % (Auto) Lymph # (Auto) [place] # (Auto) Eos # (Auto) Baso # (Auto) Abs Immat Gran (auto) Absolute Neuts (auto) Absolute Nucleated RBC Nucleated RBC % (auto) PT INR APTT Anion Gap 12 Estim Creat Clear Calc 72.8 Estimated GFR > 60 Random Glucose Fasting Glucose 101 H Estimat Average Glucose 108 Hemoglobin A1c % 5.4 Calcium 9.2 D Magnesium 1.7 Total Bilirubin 0.4 AST 14 ALT 23 Alkaline Phosphatase 71 D Total Creatine Kinase Troponin I High Sens Total Protein 6.0 L D Albumin 3.6 Triglycerides 178 Cholesterol 177 LDL Cholesterol, Calc 102 HDL Cholesterol 40 Vitamin B12 501 Folate 14.9 TSH 2.28 Free T4 1.39 COVID-19 ([facility]) COVID-19 Clin Com 05/30/21 05/30/21 06:13 06:13 MCV 88.9 MCH 30.0 MCHC 33.8 RDW 12.3 Plt Count 322 MPV 10.3 Immature Gran % (Auto) 0.5 H Neut % (Auto) 68.3 Lymph % (Auto) 24.0 [place] % (Auto) 5.4 Eos % (Auto) 1.3 Baso % (Auto) 0.5 Lymph # (Auto) 2.0 [place] # (Auto) 0.5 Eos # (Auto) 0.1 Baso # (Auto) 0.0 Abs Immat Gran (auto) 0.04 H Absolute Neuts (auto) 5.7 Absolute Nucleated RBC 0.000 Nucleated RBC % (auto) 0.0 PT INR APTT Anion Gap 12 Estim Creat Clear Calc 70.6 Estimated GFR > 60 Random Glucose 103 Fasting Glucose Estimat Average Glucose Hemoglobin A1c % Calcium 9.3 Magnesium Total Bilirubin AST ALT Alkaline Phosphatase Total Creatine Kinase Troponin I High Sens Total Protein Albumin Triglycerides Cholesterol LDL Cholesterol, Calc HDL Cholesterol Vitamin B12 Folate TSH Free T4 COVID-19 ([facility]) COVID-19 Clin Com Assessment and Plan (1) Suicidal ideation: Status: Acute (2) Abnormal ECG: Status: Acute Plan 61-year-old female with past medical history of hypertension as well as anxiety and depression who presents to the hospital initially with suicidal ideation, routine EKG showed abnormal findings therefore she will be admitted to medical floor for? further evaluation ? abnormal EKG -? EKG finding as above, patient does not have any acute complaints -? troponin flat - ? echocardiogram -? cardiology consulted-recommended stress test. -? will admit to telemetry ? suicidal ideation -? patient accepted at [facility], - sitter at bedside -? psych to follow HTN - stable - resume home meds Anxiety - will administer one dose of ativan - will continue seroquel DVT PPX: Lovenox Need for inpatient: Abnormal EKG, need stress test. Quality Stroke Does the patient have a stroke diagnosis?: No VTE Prior VTE?: No VTE Risk Level:: Medical - moderate - high VTE Device Contraindication: Treatment Not Indicated VTE Drug Contraindication: N/A - Med Ordered
--- NOTE | 2021-05-30 09:17 | MHC.CM.PN ---
CM met with Patient at bedside and addressed [place] with her, providing her with the original and placing a copy on the chart. Patient lives in her Brother's house, with her Brother/HCP/Diogo and she is active with [facility]/weekly RN visits.Home with resumption of said services is Patient's goal; [facility] may be recommended. CM has initiated and will follow for dc planning. PCP is Dr. Tresa Cervantes and Patient has received Moderna/Covid vax X3.
[2021-05-30] MEDS: Multivitamin TABLET 1 TAB PO (09:35)
[2021-05-30] MEDS: 0.9 % Sodium Chloride Flush 3 ML SYRINGE IVFLUSH ×3 (09:35→21:08)
[2021-05-30] MEDS: Metoprolol Succinate ER 50 MG TAB.ER.24H PO (09:35)
[2021-05-30] MEDS: Thiamine HCL 100 MG TABLET PO (09:35)
[2021-05-30] MEDS: Docusate Sodium 100 MG CAPSULE PO (09:35)
[2021-05-30] MEDS: QUEtiapine Fumarate 25 MG TABLET PO (09:38)
--- NOTE | 2021-05-30 10:06 | PM.CNCAR ---
History of Present Illness History of Present Illness Date of Service: 05/30/21 Requesting physician: Kobe Varela Consult reason: other (Abnormal EKG) Chief complaint: abnormal ekg Narrative: I was consulted to see Caryn in cardiology consultation today as she presented to the hospital for suicidal ideation. As a part of medical clearance she underwent EKG which showed significant T-wave inversions in anterior, anterolateral and high lateral leads suggestive of ischemia. Her troponins are negative. These EKG changes distinct from 2 years ago. She denies any current symptoms of exertional chest pain, worsening shortness of breath, symptoms at rest. She says occasionally when she gets anxious and stressed a blood pressure is elevated otherwise she has no clear cardiac issues. She is treated for hypertension, anxiety disorder, PTSD. Patient presented as she was having stress at home and was having suicidal ideation. Echocardiogram does this morning shows no evidence of stress-induced cardiomyopathy with normal LV systolic function. Currently denies any cardiac symptoms. Blood pressure stable. Review of Systems Constitutional: Constitutional: Reports no additional constitutional complaints ENT: Reports system reviewed and no additional complaints, except as documented Cardiovascular: Cardiovascular: Denies chest pain, Denies leg edema, Denies lightheadedness, Denies Loss of Consciousness, Denies palpitations and Reports dyspnea on exertion Respiratory: Respiratory: Reports no additional respiratory complaints and Reports dyspnea on exertion Gastrointestinal: Gastrointestinal: Reports no additional gastrointestinal complaints Genitourinary: Genitourinary: Reports no additional female genitourinary complaints Musculoskeletal: Musculoskeletal: Reports no additional musculoskeletal complaints Integumentary/Breasts: Skin/Breast: Reports system reviewed and no additional complaints, except as docu Neurologic: Reports system reviewed and no additional complaints, except as documented Psychiatric: Psychiatric: Reports no additional psychiatric complaints Endocrine: Endocrine: Reports no additional endocrine complaints and Denies palpitations Hematologic/Lymphatic: Hematologic/Lymphatic: Reports no additional hematologic/lymphatic complaints [facility] Past Medical History Medical History Anxiety Arthritis Bipolar 2 disorder Compression fracture of L1 lumbar vertebra Diastasis recti Dupuytren's contracture of left hand Essential hypertension Hx of suicide attempt Lumbar disc herniation On beta baldemar at home PTSD (post-traumatic stress disorder) Umbilical hernia Urinary incontinence Ventral hernia Family History Family History Father Diabetes mellitus Mother COPD (chronic obstructive pulmonary disease) Sister Diabetes mellitus Glaucoma Surgical History Surgical History History of lumbar fusion Hx of colonoscopy Hx of elbow surgery Hx of repair of left rotator cuff Social History Social History Are you a primary rn homecare to a significant other at home: No Alcohol intake: current Alcohol intake frequency: a few times a week Patient Tobacco Use Status: Former Tobacco user Quit Date: 16 yrs prior Tobacco use type: Cigarette Cigarette Packs Per Day: 1 Cigarettes Per Day: 20.0 service: No Current occupational status: disabled Meds Allergies Allergy/AdvReac Type Severity Reaction Status Date / Time No Known Allergies Allergy Verified 06/22/20 11:12 [No Known Allergies*] Active Medications: Current Medications Acetaminophen (Acetaminophen 325 Mg Tablet) 650 mg PO Q6H PRN PRN Reason: Headache/Pain Mild Scale (1-3) Al Hydroxide/Mg Hydroxide (Magnesium Hydrox/Alum Hydrox 30 Ml Oral.Susp) 30 ml PO Q6H PRN PRN Reason: Heartburn/Nausea Docusate Sodium (Docusate Sodium 100 Mg Capsule) 100 mg PO DAILY [facility] Last Admin: 05/30/21 09:35 Dose: 100 mg Documented by: Enoxaparin Sodium (Enoxaparin Sodium 40 Mg/0.4 Ml Syringe) 40 mg SUBCUT Q24H [facility] Last Admin: 05/29/21 21:37 Dose: 40 mg Documented by: Hydroxyzine HCl (Hydroxyzine Hcl 25 Mg Tablet) 25 mg PO BEDTIME PRN PRN Reason: Anxiety Last Admin: 05/29/21 21:46 Dose: 25 mg Documented by: Magnesium Hydroxide (Milk Of Magnesia 30 Ml Oral.Susp) 30 ml PO DAILY PRN PRN Reason: Constipation Melatonin (Melatonin 3 Mg Tablet) 6 mg PO BEDTIME [facility] Last Admin: 05/29/21 21:37 Dose: 6 mg Documented by: Metoprolol Succinate (Metoprolol Succinate Er 50 Mg Tab.Er.24h) 50 mg PO DAILY [facility]; Protocol Last Admin: 05/30/21 09:35 Dose: 50 mg Documented by: Mirtazapine (Mirtazapine 7.5 Mg Tablet) 7.5 mg PO BEDTIME [facility] Last Admin: 05/29/21 21:37 Dose: 7.5 mg Documented by: Multivitamins/Vitamin C (Multivitamin Tablet) 1 tab PO DAILY [facility] Last Admin: 05/30/21 09:35 Dose: 1 tab Documented by: Ondansetron HCl (Ondansetron Hcl 4 Mg/2 Ml Vial) 4 mg IVPUSH Q8H PRN PRN Reason: Nausea and Vomiting Quetiapine Fumarate (Quetiapine Fumarate 25 Mg Tablet) 25 mg PO DAILY PRN PRN Reason: anxiety Last Admin: 05/30/21 09:38 Dose: 25 mg Documented by: Quetiapine Fumarate (Quetiapine Fumarate 50 Mg Tablet) 50 mg PO BEDTIME PRN PRN Reason: hallucinations Last Admin: 05/29/21 21:46 Dose: 50 mg Documented by: Sodium Chloride (0.9 % Sodium Chloride Flush 3 Ml Syringe) [facility] Last Admin: 05/30/21 09:35 Dose: 3 ml Documented by: Thiamine HCl (Thiamine Hcl 100 Mg Tablet) 100 mg PO DAILY [facility] Last Admin: 05/30/21 09:35 Dose: 100 mg Documented by: Trazodone HCl (Trazodone Hcl 50 Mg Tablet) 50 mg PO BEDTIME PRN PRN Reason: Insomnia Last Admin: 05/29/21 21:46 Dose: 50 mg Documented by: Zolpidem Tartrate (Zolpidem Tartrate 5 Mg Tablet) 5 mg PO BEDTIME PRN PRN Reason: Insomnia Last Admin: 05/29/21 21:45 Dose: 5 mg Documented by: Home Medications Medication Instructions Recorded Confirmed Last Taken Type docusate sodium 100 mg capsule 100 mg PO DAILY 05/26/21 05/26/21 Unknown History (Colace) melatonin 3 mg tablet 2 tab PO BEDTIME 05/26/21 05/26/21 Unknown History metoprolol succinate 50 mg 1 tab PO DAILY 05/26/21 05/26/21 Unknown History tablet,extended release 24 hr mirtazapine 7.5 mg tablet 1 tab PO BEDTIME 05/26/21 05/26/21 Unknown History multivitamin 1 tab PO DAILY 05/26/21 05/26/21 Unknown History quetiapine 25 mg tablet 25 mg PO DAILY PRN 05/26/21 05/29/21 Unknown History quetiapine 50 mg tablet 1 - 2 tab PO BEDTIME PRN 05/26/21 05/26/21 Unknown History thiamine HCl (vitamin B1) 100 mg 1 tab PO DAILY 05/26/21 05/26/21 Unknown History tablet (Vitamin B-1) lisinopril 20 mg tablet 1 tab PO QAM 05/30/21 05/30/21 Unknown History Physical Exam Vital Signs: Vital Signs: Last Vital Signs Temp 97.6 F 05/30/21 07:30 Pulse 75 05/30/21 07:30 Resp 18 05/30/21 07:30 BP 134/84 05/30/21 07:30 Pulse Ox 99 05/30/21 07:30 BMI result Body Mass Index 23.5 Const: General: cooperative, comfortable, no acute distress, alert and awake Nutritional Appearance: thin Orientation/consciousness: patient oriented x3 Limitations: no limitations HEENT: Head: Yes normocephalic and Yes atraumatic Neck: Neck: Yes trachea midline, Yes supple and Yes no JVD Resp: Effort & Inspection: normal respiratory effort Auscultation: clear to auscultation bilaterally Cardio: Jugular venous distension: no JVD Palpation: normal PMI Rate: regular rate Rhythm: regular rhythm Heart sounds: S1 normal heart sound present, S2 normal heart sound present, no click, no gallops, no murmurs and no rubs GI: Auscultation: normal bowel sounds Skin: General skin exam: no rashes or lesions noted Neuro: General: patient oriented x3 and no focal motor deficits Extrem: General: Yes no clubbing, cyanosis or edema Objective Labs and Meds Result diagrams: 05/30/21 06:13 05/30/21 06:13 Lab results: Laboratory Results - last 24 hr 05/29/21 05/29/21 05/29/21 12:21 17:41 17:41 WBC 11.3 H RBC 4.50 Hgb 13.5 Hct 40.4 MCV 89.8 MCH 30.0 MCHC 33.4 RDW 12.2 Plt Count 373 MPV 9.8 Immature Gran % (Auto) 0.4 Neut % (Auto) 71.9 Lymph % (Auto) 22.2 Meigs % (Auto) 4.5 Eos % (Auto) 0.6 Baso % (Auto) 0.4 Lymph # (Auto) 2.5 Meigs # (Auto) 0.5 Eos # (Auto) 0.1 Baso # (Auto) 0.1 Abs Immat Gran (auto) 0.05 H Absolute Neuts (auto) 8.1 Absolute Nucleated RBC 0.000 Nucleated RBC % (auto) 0.0 PT INR APTT Sodium 132 L Potassium 4.9 D Chloride 98 Carbon Dioxide 26 Anion Gap 13 BUN 10 Creatinine 0.78 Estim Creat Clear Calc 72.9 Estimated GFR > 60 Random Glucose 95 Fasting Glucose Estimat Average Glucose Hemoglobin A1c % Calcium 9.9 Magnesium Total Bilirubin AST ALT Alkaline Phosphatase Total Creatine Kinase 22 L Troponin I High Sens Total Protein Albumin Triglycerides Cholesterol LDL Cholesterol, Calc HDL Cholesterol Vitamin B12 Folate TSH Free T4 COVID-19 ([facility]) Negative COVID-19 Clin Com See Note 05/29/21 05/29/21 05/29/21 17:41 17:41 20:51 WBC RBC Hgb Hct MCV MCH MCHC RDW Plt Count MPV Immature Gran % (Auto) Neut % (Auto) Lymph % (Auto) Meigs % (Auto) Eos % (Auto) Baso % (Auto) Lymph # (Auto) Meigs # (Auto) Eos # (Auto) Baso # (Auto) Abs Immat Gran (auto) Absolute Neuts (auto) Absolute Nucleated RBC Nucleated RBC % (auto) PT 11.3 INR 1.0 APTT 35.9 Sodium Potassium Chloride Carbon Dioxide Anion Gap BUN Creatinine Estim Creat Clear Calc Estimated GFR Random Glucose Fasting Glucose Estimat Average Glucose Hemoglobin A1c % Calcium Magnesium Total Bilirubin AST ALT Alkaline Phosphatase Total Creatine Kinase Troponin I High Sens 4.5 5.5 Total Protein Albumin Triglycerides Cholesterol LDL Cholesterol, Calc HDL Cholesterol Vitamin B12 Folate TSH Free T4 COVID-19 ([facility]) COVID-19 [facility] 05/30/21 05/30/21 05/30/21 06:13 06:13 06:13 WBC RBC Hgb Hct MCV MCH MCHC RDW Plt Count MPV Immature Gran % (Auto) Neut % (Auto) Lymph % (Auto) Meigs % (Auto) Eos % (Auto) Baso % (Auto) Lymph # (Auto) Meigs # (Auto) Eos # (Auto) Baso # (Auto) Abs Immat Gran (auto) Absolute Neuts (auto) Absolute Nucleated RBC Nucleated RBC % (auto) PT INR APTT Sodium 134 L Potassium 4.1 Chloride 100 Carbon Dioxide 26 Anion Gap 12 BUN 9 Creatinine 0.68 Estim Creat Clear Calc 72.8 Estimated GFR > 60 Random Glucose Fasting Glucose 101 H Estimat Average Glucose 108 Hemoglobin A1c % 5.4 Calcium 9.2 D Magnesium 1.7 Total Bilirubin 0.4 AST 14 ALT 23 Alkaline Phosphatase 71 D Total Creatine Kinase Troponin I High Sens Total Protein 6.0 L D Albumin 3.6 Triglycerides 178 Cholesterol 177 LDL Cholesterol, Calc 102 HDL Cholesterol 40 Vitamin B12 501 Folate 14.9 TSH 2.28 Free T4 1.39 COVID-19 ([facility]) COVID-19 Clin Com 05/30/21 05/30/21 06:13 06:13 WBC 8.3 RBC 4.06 L Hgb 12.2 Hct 36.1 L MCV 88.9 MCH 30.0 MCHC 33.8 RDW 12.3 Plt Count 322 MPV 10.3 Immature Gran % (Auto) 0.5 H Neut % (Auto) 68.3 Lymph % (Auto) 24.0 Meigs % (Auto) 5.4 Eos % (Auto) 1.3 Baso % (Auto) 0.5 Lymph # (Auto) 2.0 Meigs # (Auto) 0.5 Eos # (Auto) 0.1 Baso # (Auto) 0.0 Abs Immat Gran (auto) 0.04 H Absolute Neuts (auto) 5.7 Absolute Nucleated RBC 0.000 Nucleated RBC % (auto) 0.0 PT INR APTT Sodium 134 L Potassium 4.4 Chloride 100 Carbon Dioxide 26 Anion Gap 12 BUN 10 Creatinine 0.70 Estim Creat Clear Calc 70.6 Estimated GFR > 60 Random Glucose 103 Fasting Glucose Estimat Average Glucose Hemoglobin A1c % Calcium 9.3 Magnesium Total Bilirubin AST ALT Alkaline Phosphatase Total Creatine Kinase Troponin I High Sens Total Protein Albumin Triglycerides Cholesterol LDL Cholesterol, Calc HDL Cholesterol Vitamin B12 Folate TSH Free T4 COVID-19 ([facility]) COVID-19 Clin Com Assessment and Plan (1) Abnormal ECG: Status: Acute Abnormal EKG suggestive myocardial ischemia in the anterior/LAD territory. There is no evidence of stress-induced cardiomyopathy by echocardiogram. She has no active cardiac symptoms and flat troponins, likelihood of acute coronary syndrome is low. However myocardial ischemia needs to be ruled out prior to clearance for psychiatric purposes. She can not exercise on the treadmill. Will perform a exercise myocardial perfusion imaging to further evaluate for myocardial ischemia as she is certainly multiple risk factors for the same. Continue treatment for hypertension which is currently well optimized. Consider statin treatment. Will follow with you after stress testing. Thank you for allowing me to partake in the care Procedures Date of Service Date of Service: 05/30/21
--- NOTE | 2021-05-30 11:03 | CA_ITS ---
Transthoracic Echocardiogram Patient (Last, First, Middle): Caryn Pinto, Gender: Female Date of : 1960 Age: 61 Procedure Date: 05/30/2021 Procedure Type: Transthoracic Echocardiogram Location[place] [facility] [place] Height: 160.02 cm Weight: 59.88 kg BSA: 1.62 m2 Heart Rate: bpm BP: 115 / 71 mmHg Hoist Mechanic: VH/OT Referring MD: Kobe Varela MD Mounter Automatic: Aamir Jarrell MD Symptoms: abnormal ekg Study Quality: Fair ECG Rhythm: Sinus Conclusions: - 1. Normal LV systolic function with grade 1 diastolic dysfunction 2. Normal cardiac valvular Doppler 3. Normal RV systolic pressure 4. No gross pericardial effusion Findings Left Ventricle Normal left ventricular size, thickness, and systolic function. The visually estimated ejection fraction is between 60-65%. Spectral Doppler is indicative of an impaired relaxation filling pattern. E/E prime ratio is <8, consistent with normal filling pressures. Evidence suggests grade I (mild) diastolic dysfunction. Right Ventricle Normal right ventricular cavity size and systolic function. Atria Both atria are normal in size. There is no evidence of interatrial shunt. Aortic Valve The aortic valve structure and function is likely normal. There is no aortic valve stenosis. There is no aortic valve regurgitation. Mitral Valve Normal mitral valve structure and function. There is trace mitral valve regurgitation. There is no mitral valve stenosis. Pulmonic Valve The pulmonic valve was not well visualized. Tricuspid Valve Likely normal tricuspid valve structure and function. There is trace tricuspid valve regurgitation. The right ventricular systolic pressure is normal. The right ventricular systolic pressure is 18 mmHg. Normal right atrial pressure. There is no evidence of pulmonary hypertension. Great Vessels All visible segments of the aorta are normal in size. The pulmonary artery was not well visualized. Venous The inferior vena cava is normal in size and collapses greater than 50% with inspiration. Pericardium/Pleural There is no evidence of pericardial effusion. Prior Study Comparison No previous study in the last 5 years for comparison Measurements 2D Linear Measurements IVSd: 1.07 0.6-0.9/0.6-1.0 cm LVIDd: 4.27 3.9-5.3/4.2-5.9 cm LVIDd Index: 2.64 2.4-3.2/2.2-3.1 cm/m2 LVIDs: 2.67 2.0-3.6 cm LVPWd: 1.01 0.7-1.1 cm LA Diam: 3.60 2.7-3.8/3.0-4.0 cm LAIDs Index: 2.22 1.5-2.3 cm/m2 LV Mass: 185.32 67-162/88-224 g LV Mass Index: 114.40 43-95/49-115 g/m2 LVOT Diam: 2.00 3.0+(-)1.3 cm Mitral Valve MV Pk E: 0.69 MV PK A: 0.80 MV Decel Time: 165.00 E/A: 0.90 E'Lateral: 8.59 E'Medial: 5.77 E/E' Med: 12.00 E/E' Lat: 8.10 PHT: 48.00 MVA PHT: 4.58 Decel [place]: 4.20 Aortic Valve AoV Pk Lenny: 1.46 AoV Mn Lenny: 1.07 AoV VTI: 0.29 AoV Pk Grad: 9.00 Aov Mn Grad: 5.00 JOSEPH Cont.VTI: 2.66 LVOT LVOT Pk Lenny: 1.37 LVOT Mn Lenny: 0.87 LVOT VTI: 0.25 LVOT Pk Grad: 8.00 LVOT Mn Grad: 3.00 LVOT Diam: 2.00 LVOT Area: 3.14 Diastolic Function MV Pk E: 0.69 MV Pk A: 0.80 E/A: 0.90 E'Medial: 5.77 E/E' Med: 12.00 E' Laterial: 8.59 E/E' Lat: 8.10 Right Ventricle TAPSE (mm): 20.00 TVS' Lenny: 11.00 Tricuspid Valve TR Pk Lenny: 1.93 TR Pk Grad: 15.00 RA Press: 3.00 RVSP: 18.00 Great Vessels Aorta Sinus of Valsalva: 3.20 2.0-3.5 cm Ao Asc: 3.00 2.1-3.4 cm Updated in Other Vendor System with Status of Final Aamir Jarrell MD electronically signed on 05/30/2021 9:01:10 AM with status of Final
--- NOTE | 2021-05-30 14:26 | ECG_ITS ---
Test Reason : med clearance Blood Pressure : / mmHG Vent. Rate : 070 BPM Atrial Rate : 070 BPM P-R Int : 148 ms QRS Dur : 084 ms QT Int : 398 ms P-R-T Axes : 033 011 151 degrees QTc Int : 429 ms Normal sinus rhythm ST & Marked T wave abnormality, consider anterolateral ischemia Abnormal ECG When compared with ECG of 29-MAY-2021 12:04, No significant change was found Referred By: Radha Forde Electronically Signed By:THERESA NANCE MD
[2021-05-30] MEDS: Milk of Magnesia 30 ML ORAL.SUSP PO (17:17)
[2021-05-30] MEDS: Enoxaparin Sodium 40 MG/0.4 ML SYRINGE SUBCUT (21:07)
[2021-05-30] MEDS: Melatonin 3 MG TABLET 6 MG PO (21:07)
[2021-05-30] MEDS: Zolpidem Tartrate 5 MG TABLET PO (21:08)
[2021-05-30] MEDS: Mirtazapine 7.5 MG TABLET PO (21:08)
[2021-05-31 04:00] VITALS: BP 122/76; PULSE 69; RESP 16; TEMP 36.1; O2SAT 98
[2021-05-31 07:06] VITALS: BP 125/79; PULSE 63; RESP 20; TEMP 35.7; O2SAT 100
[2021-05-31] MEDS: Docusate Sodium 100 MG CAPSULE PO (08:02)
[2021-05-31] MEDS: Multivitamin TABLET 1 TAB PO (08:02)
[2021-05-31] MEDS: Metoprolol Succinate ER 50 MG TAB.ER.24H PO (08:02)
[2021-05-31] MEDS: Thiamine HCL 100 MG TABLET PO (08:02)
[2021-05-31] MEDS: 0.9 % Sodium Chloride Flush 3 ML SYRINGE IVFLUSH ×3 (08:03→20:35)
--- NOTE | 2021-05-31 11:07 | P.PNCA_ITS ---
Subjective Subjective Date of Service: 05/31/21 Principal diagnosis: Abnormal EKG Interval history: Patient having no symptoms of chest pain or shortness of breath. Says feel lightheaded from being anxious. Underwent resting perfusion study yesterday. Stress testing waiting today. Review of Systems Review of Systems Yes all other systems are reviewed and are negative Physical Exam Vital Signs: Last Vital Signs Temp 96.3 F L 05/31/21 07:06 Pulse 63 05/31/21 07:06 Resp 20 05/31/21 07:06 BP 125/79 05/31/21 07:06 Pulse Ox 100 05/31/21 07:06 BMI result Body Mass Index 23.5 Const General: cooperative, comfortable, no acute distress, alert, awake and anxious Orientation/consciousness: patient oriented x3 Limitations: no limitations Neck Neck: Yes trachea midline, Yes supple and Yes no JVD Resp Effort & Inspection: normal respiratory effort Auscultation: clear to auscultation bilaterally Cardio Jugular venous distension: no JVD Palpation: normal PMI Rate: regular rate Rhythm: regular rhythm Heart sounds: S1 normal heart sound present, S2 normal heart sound present, no c lick, no gallops and no murmurs Neuro General: patient oriented x3 and no focal motor deficits Extrem General: Yes no clubbing, cyanosis or edema Objective Labs and Meds Result diagrams: 05/30/21 06:13 05/30/21 06:13 Progress Note: A&P Assessment and plan (1) Abnormal ECG: Status: Acute Assessment and Plan: Abnormal EKG suggestive LAD territory ischemia and patient admitted for suicidal ideation. Has multiple risk factors for the same. Echocardiogram shows normal LV systolic function. At this point time continue to pursue with stress testing. Further treatment based on finding of stress test. If this is within normal limits, patient will be cleared to be admitted for inpatient psychiatric evaluation and treatment. Continue her other medications as before. Will follow up after stress testing Fall Risk Details Current Medications: Current Medications Acetaminophen (Acetaminophen 325 Mg Tablet) 650 mg PO Q6H PRN PRN Reason: Headache/Pain Mild Scale (1-3) Al Hydroxide/Mg Hydroxide (Magnesium Hydrox/Alum Hydrox 30 Ml Oral.Susp) 30 ml PO Q6H PRN PRN Reason: Heartburn/Nausea Docusate Sodium (Docusate Sodium 100 Mg Capsule) 100 mg PO DAILY [facility] Last Admin: 05/31/21 08:02 Dose: 100 mg Documented by: Enoxaparin Sodium (Enoxaparin Sodium 40 Mg/0.4 Ml Syringe) 40 mg SUBCUT Q24H [facility] Last Admin: 05/30/21 21:07 Dose: 40 mg Documented by: Hydroxyzine HCl (Hydroxyzine Hcl 25 Mg Tablet) 25 mg PO BEDTIME PRN PRN Reason: Anxiety Last Admin: 05/29/21 21:46 Dose: 25 mg Documented by: Magnesium Hydroxide (Milk Of Magnesia 30 Ml Oral.Susp) 30 ml PO DAILY PRN PRN Reason: Constipation Last Admin: 05/30/21 17:17 Dose: 30 ml Documented by: Melatonin (Melatonin 3 Mg Tablet) 6 mg PO BEDTIME [facility] Last Admin: 05/30/21 21:07 Dose: 6 mg Documented by: Metoprolol Succinate (Metoprolol Succinate Er 50 Mg Tab.Er.24h) 50 mg PO DAILY [facility]; Protocol Last Admin: 05/31/21 08:02 Dose: 50 mg Documented by: Mirtazapine (Mirtazapine 7.5 Mg Tablet) 7.5 mg PO BEDTIME [facility] Last Admin: 05/30/21 21:08 Dose: 7.5 mg Documented by: Multivitamins/Vitamin C (Multivitamin Tablet) 1 tab PO DAILY [facility] Last Admin: 05/31/21 08:02 Dose: 1 tab Documented by: Ondansetron HCl (Ondansetron Hcl 4 Mg/2 Ml Vial) 4 mg IVPUSH Q8H PRN PRN Reason: Nausea and Vomiting Quetiapine Fumarate (Quetiapine Fumarate 25 Mg Tablet) 25 mg PO DAILY PRN PRN Reason: anxiety Last Admin: 05/30/21 09:38 Dose: 25 mg Documented by: Quetiapine Fumarate (Quetiapine Fumarate 50 Mg Tablet) 50 mg PO BEDTIME PRN PRN Reason: hallucinations Last Admin: 05/29/21 21:46 Dose: 50 mg Documented by: Sodium Chloride (0.9 % Sodium Chloride Flush 3 Ml Syringe) 3 ml IVFLUSH QSHIFT [facility] Last Admin: 05/31/21 08:03 Dose: 3 ml Documented by: Thiamine HCl (Thiamine Hcl 100 Mg Tablet) 100 mg PO DAILY [facility] Last Admin: 05/31/21 08:02 Dose: 100 mg Documented by: Trazodone HCl (Trazodone Hcl 50 Mg Tablet) 50 mg PO BEDTIME PRN PRN Reason: Insomnia Last Admin: 05/29/21 21:46 Dose: 50 mg Documented by: Zolpidem Tartrate (Zolpidem Tartrate 5 Mg Tablet) 5 mg PO BEDTIME PRN PRN Reason: Insomnia Last Admin: 05/30/21 21:08 Dose: 5 mg Documented by: Time Spent With Patient Time: Total time spent is greater than 50% in coordination of care (as documented) at patient's floor/unit and/or counseling patient: Progress Note: Quality Stroke Does the patient have a stroke diagnosis?: No Procedures Date of Service Date of Service: 05/31/21
[2021-05-31 11:37] VITALS: BP 120/74; PULSE 78; RESP 20; TEMP 36.9; O2SAT 97
--- NOTE | 2021-05-31 11:39 | MHC.CM.PN ---
Cardiology indicates that if Stress Test is WNL, Patient will be medically cleared for IPLOC; CM will follow.
--- NOTE | 2021-05-31 13:39 | P.PNIM_ITS ---
Subjective Subjective Date of Service: 05/31/21 Interval History: Awaiting cardiac workup. Review of Systems Denies any chest pain or shortness of breath or abdominal pain or fever chills or urinary complaints. Physical Exam Vital Signs: Vital Signs: Last Vital Signs Temp 98.5 F 05/31/21 11:37 Pulse 78 05/31/21 11:37 Resp 20 05/31/21 11:37 BP 120/74 05/31/21 11:37 Pulse Ox 97 05/31/21 11:37 BMI result Body Mass Index 23.5 ?Appearance: Alert.? Oriented X3.? not in distress.? cvs: rrr, [id number] , no murmur res: clear to auscultation ,no rhonchii or wheezing abd: no rebound or guarding ,nt, bs present. ext pulses present , no cyanosis . neuro: axo3 , nonfocal. Objective Data Active Medications Acetaminophen (Acetaminophen 325 Mg Tablet) 650 mg PO Q6H PRN PRN Reason: Headache/Pain Mild Scale (1-3) Al Hydroxide/Mg Hydroxide (Magnesium Hydrox/Alum Hydrox 30 Ml Oral.Susp) 30 ml PO Q6H PRN PRN Reason: Heartburn/Nausea Docusate Sodium (Docusate Sodium 100 Mg Capsule) 100 mg PO DAILY [facility] Last Admin: 05/31/21 08:02 Dose: 100 mg Documented by: HEMA Enoxaparin Sodium (Enoxaparin Sodium 40 Mg/0.4 Ml Syringe) 40 mg SUBCUT Q24H [facility] Last Admin: 05/30/21 21:07 Dose: 40 mg Documented by: DYLAN Hydroxyzine HCl (Hydroxyzine Hcl 25 Mg Tablet) 25 mg PO BEDTIME PRN PRN Reason: Anxiety Last Admin: 05/29/21 21:46 Dose: 25 mg Documented by: LALA Magnesium Hydroxide (Milk Of Magnesia 30 Ml Oral.Susp) 30 ml PO DAILY PRN PRN Reason: Constipation Last Admin: 05/30/21 17:17 Dose: 30 ml Documented by: MONICA Melatonin (Melatonin 3 Mg Tablet) 6 mg PO BEDTIME [facility] Last Admin: 05/30/21 21:07 Dose: 6 mg Documented by: DYLAN Metoprolol Succinate (Metoprolol Succinate Er 50 Mg Tab.Er.24h) 50 mg PO DAILY [facility]; Protocol Last Admin: 05/31/21 08:02 Dose: 50 mg Documented by: HEMA Mirtazapine (Mirtazapine 7.5 Mg Tablet) 7.5 mg PO BEDTIME [facility] Last Admin: 05/30/21 21:08 Dose: 7.5 mg Documented by: DYLAN Multivitamins/Vitamin C (Multivitamin Tablet) 1 tab PO DAILY [facility] Last Admin: 05/31/21 08:02 Dose: 1 tab Documented by: HEMA Ondansetron HCl (Ondansetron Hcl 4 Mg/2 Ml Vial) 4 mg IVPUSH Q8H PRN PRN Reason: Nausea and Vomiting Quetiapine Fumarate (Quetiapine Fumarate 25 Mg Tablet) 25 mg PO DAILY PRN PRN Reason: anxiety Last Admin: 05/30/21 09:38 Dose: 25 mg Documented by: ALANIS Quetiapine Fumarate (Quetiapine Fumarate 50 Mg Tablet) 50 mg PO BEDTIME PRN PRN Reason: hallucinations Last Admin: 05/29/21 21:46 Dose: 50 mg Documented by: LALA Sodium Chloride (0.9 % Sodium Chloride Flush 3 Ml Syringe) 3 ml IVFLUSH QSHIFT [facility] Last Admin: 05/31/21 08:03 Dose: 3 ml Documented by: HEMA Thiamine HCl (Thiamine Hcl 100 Mg Tablet) 100 mg PO DAILY [facility] Last Admin: 05/31/21 08:02 Dose: 100 mg Documented by: HEMA Trazodone HCl (Trazodone Hcl 50 Mg Tablet) 50 mg PO BEDTIME PRN PRN Reason: Insomnia Last Admin: 05/29/21 21:46 Dose: 50 mg Documented by: LALA Zolpidem Tartrate (Zolpidem Tartrate 5 Mg Tablet) 5 mg PO BEDTIME PRN PRN Reason: Insomnia Last Admin: 05/30/21 21:08 Dose: 5 mg Documented by: DYLAN Labs CBC & Chem 7: 05/30/21 06:13 05/30/21 06:13 Assessment and Plan (1) Suicidal ideation: Status: Acute (2) Abnormal ECG: Status: Acute Plan 61-year-old female with past medical history of hypertension as well as anxiety and depression who presents to the hospital initially with suicidal ideation, routine EKG showed abnormal findings therefore she will be admitted to medical floor for? further evaluation ? abnormal EKG -? EKG finding as above, patient does not have any acute complaints -? troponin flat - ? echocardiogram -? cardiology consulted-recommended stress test-2 nd part stress test -? will admit to telemetry ? suicidal ideation -? patient accepted at [facility], - sitter at bedside once get cardiac clearence -need to go to inpatient psych. ?HTN - stable - resume home meds ?Anxiety - will administer one dose of ativan - will continue seroquel DVT PPX: Lovenox inpatient need : awaits cardiac clearence to go to inpatient psych Quality Stroke Does the patient have a stroke diagnosis?: No VTE Prior VTE?: No VTE Risk Level:: Medical - moderate - high VTE Device Contraindication: Treatment Not Indicated VTE Drug Contraindication: N/A - Med Ordered
[2021-05-31 15:08] VITALS: BP 137/80; PULSE 74; RESP 18; TEMP 37.1; O2SAT 98
[2021-05-31 19:12] VITALS: BP 107/68; PULSE 74; RESP 18; TEMP 37.1; O2SAT 98
[2021-05-31] MEDS: Enoxaparin Sodium 40 MG/0.4 ML SYRINGE SUBCUT (20:34)
[2021-05-31] MEDS: Melatonin 3 MG TABLET 6 MG PO (20:34)
[2021-05-31] MEDS: Mirtazapine 7.5 MG TABLET PO (20:34)
[2021-05-31] MEDS: Zolpidem Tartrate 5 MG TABLET PO (20:40)
--- NOTE | 2021-05-31 21:10 | MHC.CARE ---
Pt was evaluated and cleared by the CARE team. Pt no longer meets criteria for IPLOC. Plan is for pt to return home tomorrow after medical clearance. Case was discussed with Care certified wellness program coordinator TRENTON Lopez and hospitalist Nichole
[2021-05-31 23:33] VITALS: BP 106/70; PULSE 69; RESP 18; TEMP 36.1; O2SAT 95
[2021-06-01] MEDS: QUEtiapine Fumarate 50 MG TABLET PO (02:38)
[2021-06-01 03:24] VITALS: BP 97/65; PULSE 71; RESP 18; TEMP 36.4; O2SAT 95
[2021-06-01 07:06] VITALS: BP 125/81; PULSE 74; RESP 16; TEMP 36.3; O2SAT 98
[2021-06-01 07:08] VITALS: BP 128/81; PULSE 74; RESP 16; TEMP 36.3; O2SAT 98
[2021-06-01] MEDS: Metoprolol Succinate ER 50 MG TAB.ER.24H PO (09:11)
[2021-06-01] MEDS: Multivitamin TABLET 1 TAB PO (09:11)
[2021-06-01] MEDS: Docusate Sodium 100 MG CAPSULE PO (09:11)
[2021-06-01] MEDS: Thiamine HCL 100 MG TABLET PO (09:13)
[2021-06-01] MEDS: 0.9 % Sodium Chloride Flush 3 ML SYRINGE IVFLUSH (09:13)
[2021-06-01 11:03] VITALS: BP 127/81; PULSE 76; RESP 18; TEMP 36.6; O2SAT 99
--- NOTE | 2021-06-01 11:17 | MHC.CM.PN ---
Patient has now been medically cleared for dc to home today, self care.
--- NOTE | 2021-06-01 11:59 | PM.DS ---
DS: Providers Provider Date of Service: 06/01/21 Date of admission: 05/29/21 20:07 Primary care physician: Suzanna Cervantes MD Consults: 05/29/21 20:20 Consult to Cardiology Routine Consulting Provider: Aamir Jarrell Reason for consultation: abnormal ekg 05/29/21 20:41 Consult to Psychiatry Routine Consulting Provider: Psych Covering Reason for consultation: Suicidal ideation DS: Diagnosis Discharge Diagnosis (1) Suicidal ideation: Status: Acute (2) Abnormal ECG: Status: Acute DS: Summary Hospital Course Hospital Course: 61-year-old female with a past medical history of anxiety, depression, bipolar disorder, and hypertension who presents to the hospital with complaints of suicidal ideation.? Patient was planned for admission to [facility] and has been waiting a bed in the ED for the past 3 days.? Patient finally received a bed assignment at the [facility] today but a routine EKG for admission was done which showed significant abnormality including T-wave inversions in V2 V3 V4 V5 V6, lead 1 to and? ST depression in the lateral leads.? This case was discussed with Cardiology, and Cardiology recommended observation in the medical unit and echo in the morning.? Patient herself is complaining of anxiety and insomnia for the past 3 nights while waiting a bed at [facility] but otherwise denies any chest pain, no shortness of breath, no palpitations, no history of chest pain, no abdominal pain nausea or vomiting, no diarrhea or constipation, no urinary symptoms and no lower extremity edema.? Patient has no headache, no change in vision, no numbness tingling or weakness. ? Vitals reviewed for today show no significant abnormality, labs reviewed showed WBC count of 11.3, labs otherwise unremarkable EKG as described above. hospital course: Patient came to the hospital because of depression,SI and initially was admitted to Medicine secondary to abnormal EKG suggestive LAD territory ischemia?: Seen by Cardiology and had echo and stress test done which is seems to be fine so cardiology- cleared the patient, subsequently seen by care team also and cleared for discharge home in addition care team gives the information for further follow-up outpatent ( spoke to Miss Anahi Rascon from care team in detail-patient is clear for discharge). Above management discussed with the patient in detail length she understand and in agreement with the plan. Time Spent with Patient Time attestation: Total time spent providing and/or coordinating discharge services: Discharge coordination time: Greater than 30 minutes Quality: Safe Use of Opioids Does Pt have an Active Cancer Diagnosis on the Problem List?: No Quality: Stroke Does the patient have a stroke diagnosis?: No Physical Exam Vital Signs: Vital Signs: Last Vital Signs Temp 98 F 06/01/21 11:03 Pulse 76 06/01/21 11:03 Resp 18 06/01/21 11:03 BP 127/81 06/01/21 11:03 Pulse Ox 99 06/01/21 11:03 BMI result Body Mass Index 23.5 Discharge Plan Discharge Patient Disposition: Home, Self-Care Discharge Diagnosis: abnormal ekg , depression Referrals: Suzanna Cervantes MD [Primary Care Provider] - 1 Week Discharge Medications: Continued quetiapine 25 mg tablet 25 mg PO DAILY PRN (Reason: anxiety) 0RF metoprolol succinate 50 mg tablet extended release 24 hr 1 tab PO DAILY 0RF thiamine HCl (vitamin B1) [Vitamin B-1] 100 mg tablet 1 tab PO DAILY 0RF melatonin 3 mg tablet 2 tab PO BEDTIME 0RF mirtazapine 7.5 mg tablet 1 tab PO BEDTIME 0RF quetiapine 50 mg tablet 1 - 2 tab PO BEDTIME PRN (Reason: hallucinations) 0RF multivitamin Tablet 1 tab PO DAILY 0RF docusate sodium [Colace] 100 mg Capsule 100 mg PO DAILY 0RF lisinopril 20 mg tablet 1 tab PO QAM 0RF Discharge Orders: Discharge Order (Routine); Ordered 06/01/21 Ordered By: Margaret Obrien Diet: advance to usual diet Activity on Discharge: As tolerated Stand Alone Forms: Patient Portal Discharge page Care Plan Goals: Patient came to the hospital because of depression and initially was admitted to Medicine secondary to abnormal EKG: Seen by Cardiology and had stress test done which is seems to be fine so cardiology cleared the patient, subsequently seen by care team also and cleared for discharge home in addition care team gives the information for further follow-up outpatent . Above management discussed with the patient in detail length she understand and in agreement with the plan. Health Concerns: As above. Plan of Treatment: As above. Assessment: As above.
== END 2021-06-01 12:54 | disposition home or self-care (01) ==
LOC: HO.ED 05-29 20:29 → HO.EDOVER 05-29 20:34 → HO.IMC 05-29 22:14
PROVIDERS: Clinical Nurse Specialist Psychiatric/Mental Health, Adult; Physician Assistant; Admitting Provider Internal Medicine; Emergency Provider Emergency Medicine; PCP Internal Medicine; Visit Provider Internal Medicine
DX: R45.851 Suicidal ideations (principal); R94.31 Abnormal electrocardiogram [ECG] [EKG]; F41.9 Anxiety disorder, unspecified; F43.10 Post-traumatic stress disorder, unspecified; F31.81 Bipolar II disorder; G47.00 Insomnia, unspecified; I10 Essential (primary) hypertension; Z87.891 Personal history of nicotine dependence; Z20.822 Contact with and (suspected) exposure to COVID-19; Z79.899 Other long term (current) drug therapy
CPT/HCPCS: 36415; 78452; 80048; 80053; 80061; 80076; 80307; 81003; 82077; 82550; 82607; 82746; 83036; 83735; 84439; 84443; 84484; 85025; 85610; 85730; 87635; 93005; 93017; 93306; 96374; 96375; 99219; 99285; A9500; J0280; J1650; J2060; J2785

== ENCOUNTER 2021-08-07 14:32 | Outpatient (REF) | payer OTHER, SELFPAY ==
[2021-08-07 16:58] LABS: Alanine Aminotransferase 20 U/L (0-31); Albumin Level 4.5 g/dL (3.5-5.0); Alkaline Phosphatase 64 U/L (39-117); Aspartate Amino Transferase 20 U/L (5-31); Bilirubin Direct 0.2 mg/dL (0.0-0.5); Bilirubin Total 0.3 mg/dL (0.0-1.0); Total Protein 7.4 g/dL (6.5-8.0)
== END 2021-08-07 14:33 | disposition home or self-care (01) ==
LOC: HO.HMGCLDS 14:32
PROVIDERS: PCP Internal Medicine; Visit Provider Podiatrist
DX: B35.1 Tinea unguium (principal)
CPT/HCPCS: 36415; 80076

== ENCOUNTER 2021-10-23 12:05 | Outpatient (REF) | payer OTHER, SELFPAY ==
--- NOTE | ~2021-10-23 | MM_ITS ---
EXAMINATION: MM SCREENING DIGITAL BREAST TOMOSYNTHESIS, BILATERAL CLINICAL INFORMATION: Screening. Asymptomatic. The lifetime risk of breast cancer based on the Tyrer-Cuzick Model is 5%. COMPARISON: Mammography: 05/18/2019 and prior exams dating back to 05/28/2009. TECHNIQUE: Digital breast tomosynthesis is performed in both the craniocaudal and mediolateral oblique views along with computer-aided detection (CAD). Synthesized 2D images are generated from the tomosynthesis. FINDINGS: There are scattered areas of fibroglandular density (ACR BI-RADS breast composition Category b). There are no significant masses, abnormal calcifications, or other abnormalities. Parenchymal pattern is similar to prior studies. There are some scattered minor stable asymmetries. No interval developing density. The axilla are unremarkable. No significant changes from prior studies. MM/MM tomosynthesis screening BI IMPRESSION: No mammographic evidence of malignancy. ASSESSMENT: BI-RADS 2: Benign RECOMMENDATION: Routine annual mammography screening. This patient's information was entered into a reminder system with a target due date for their next mammogram.
== END 2021-10-23 12:06 | disposition home or self-care (01) ==
LOC: HO.MAMMO 12:05
PROVIDERS: PCP Internal Medicine; Visit Provider Internal Medicine
DX: Z12.31 Encounter for screening mammogram for malignant neoplasm of breast (principal)
CPT/HCPCS: 77063; 77067

== ENCOUNTER 2022-02-14 08:13 | Outpatient (REF) | payer OTHER, SELFPAY ==
[2022-02-14 11:41] LABS: Alanine Aminotransferase 26 U/L (0-31); Albumin Level 4.5 g/dL (3.5-5.0); Alkaline Phosphatase 61 U/L (39-117); Aspartate Amino Transferase 19 U/L (5-31); Bilirubin Direct < 0.2 mg/dL (0.0-0.5); Bilirubin Total 0.4 mg/dL (0.0-1.0); Total Protein 7.1 g/dL (6.5-8.0)
[2022-02-14 12:16] LABS: Alanine Aminotransferase 26 U/L (0-31); Anion Gap 12 (12-20); Aspartate Amino Transferase 19 U/L (5-31); Blood Urea Nitrogen 20 mg/dL (9-16); Calcium 10.2 mg/dL (8.4-10.2); Carbon Dioxide 29 mmol/L (22-29); Chloride 100 mmol/L (96-108); Cholesterol 252 mg/dL; Estimated Glomerular Filt Rate > 60; Glucose Fasting 103 mg/dL (60-99); HDL Cholesterol 75 mg/dL; LDL Cholesterol Calculated 152 mg/dl; Potassium 4.8 mmol/L (3.3-5.1); Sodium 136 mmol/L (135-145); Triglycerides 125 mg/dL; Vitamin D 25-OH Total 68.1 ng/mL (>30)
== END 2022-02-14 08:14 | disposition home or self-care (01) ==
LOC: HO.HMGCLDS 08:13
PROVIDERS: Absent Provider Podiatrist; PCP Internal Medicine; Visit Provider Internal Medicine
DX: Z00.01 Encounter for general adult medical examination with abnormal findings (principal); I10 Essential (primary) hypertension; F43.10 Post-traumatic stress disorder, unspecified; F31.81 Bipolar II disorder; N95.9 Unspecified menopausal and perimenopausal disorder; B35.1 Tinea unguium
CPT/HCPCS: 36415; 80048; 80061; 80076; 82306; 84450; 84460

== ENCOUNTER 2022-03-07 09:50 | Outpatient (REF) | payer OTHER, SELFPAY ==
[2022-03-09 17:58] LABS: HPV mRNA E6/E7 rflx Not Detected (Not Detected)
== END 2022-03-07 09:51 | disposition home or self-care (01) ==
LOC: HO.LNP 09:50
PROVIDERS: PCP Internal Medicine; Visit Provider Advanced Practice Midwife
DX: Z01.419 Encounter for gynecological examination (general) (routine) without abnormal findings (principal); Z11.51 Encounter for screening for human papillomavirus (HPV); N88.9 Noninflammatory disorder of cervix uteri, unspecified
CPT/HCPCS: 87624; 88142

== ENCOUNTER 2022-03-22 14:36 | Outpatient (REF) | payer OTHER, SELFPAY ==
--- NOTE | ~2022-03-22 | US_ITS ---
EXAMINATION: US PELVIS CLINICAL INFORMATION: Noninflammatory disorder of the cervix uteri; postmenopausal patient. COMPARISON: None TECHNIQUE: Ultrasound of the pelvis is performed using both transabdominal and transvaginal transducers along with Doppler. Transvaginal imaging is performed due to inadequate visualization transabdominally. FINDINGS: Uterus: The uterus is retroverted and anteflexed. The uterus measures 8.2 x 2.3 x 3.7 cm. The double wall endometrial thickness is 0.3 mm. The uterus is smooth in contour and has normal myometrial echogenicity. Within the cervix, 4.6 x 3.2 x 3.9 cm heterogeneously hypoechoic mass is seen. There is mild associated peripheral color Doppler flow. Adnexa: Both ovaries are nonvisualized. There is no pelvic ascites or fluid collection. No adnexal mass is seen. US/US pelvic and transvaginal IMPRESSION: 1. A 4.6 cm hypoechoic mass is seen arising within the cervix. There is mild associated peripheral color Doppler flow. This may represent a fibroid or other neoplasm. Gynecology evaluation and management is recommended. Recommend correlation with the patient's most recent Pap smear. As well, this can be further evaluated with MRI, if clinically indicated. 2. The bilateral ovaries are nonvisualized. A preliminary report was provided by the [facility] on 03/26/2022.
== END 2022-03-22 14:37 | disposition home or self-care (01) ==
LOC: HO.US 14:36
PROVIDERS: Visit Provider Advanced Practice Midwife
DX: N88.9 Noninflammatory disorder of cervix uteri, unspecified (principal)
CPT/HCPCS: 76830; 76856

== ENCOUNTER → 2022-03-29 13:02 | Outpatient (BNVA) | payer OTHER, SELFPAY | PROVIDERS: PCP Internal Medicine; Visit Provider Advanced Practice Midwife | DX: Z71.2 Person consulting for explanation of examination or test findings (principal); N88.9 Noninflammatory disorder of cervix uteri, unspecified | CPT/HCPCS: Q3014 ==

== ENCOUNTER 2022-04-25 14:31 | Outpatient (REF) | payer OTHER, SELFPAY ==
--- NOTE | ~2022-04-25 | MR_ITS ---
EXAMINATION: MR PELVIS WITHOUT AND WITH CONTRAST CLINICAL INFORMATION: Hypoechoic cervical mass 4.6 cm on ultrasound. Postmenopausal, age 62. COMPARISON: Pelvic ultrasound 03/22/2022. Lumbar radiographs 01/17/2019. TECHNIQUE: Ultrasound of the pelvis is performed without and with use of 6 mL Gadavist gadolinium contrast. Imaging is performed in 3 planes. Postcontrast images and axial plane. FINDINGS: Uterus: The uterus is in neutral position, slightly tilted towards the left with overall dimensions approximately 7.0 x 2.8 x 4.0 cm. Endometrial double wall thickness is just under 3 mm. The junctional zone appears normal. Uterus fundus and body contours are smooth. There is an intramural circumscribed oval mass lower uterine segment and cervix with overall dimensions approximately 3.3 x 3.9 x 4.0 cm. The lesion is homogeneous isointense on T1 and homogeneous low signal on T2. Following contrast, there is near homogeneous enhancement slightly less than that of the myometrium. The appearance is most suggestive of intramural fibroid. The cervical os and vaginal cavity are unremarkable. Adnexa: There is no adnexal mass or pelvic ascites. Right ovary approximately 1.6 cm. Left ovary approximately 1.6 cm. No ovarian mass. Other: There is no ventral inguinal hernia. No deep pelvic or inguinal lymphadenopathy. Full Field coronal imaging demonstrates no hydronephrosis. No biliary ductal dilatation. The liver and spleen are normal in size. No bowel obstruction or inflammatory changes in bowel or mesentery. Osseous: There is prior lumbosacral fusion with disc spacers L4-L5 and L5-S1. Several small intra-articular sacral meningoceles/Tarlov cysts are present, largest S1 right of midline measuring approximately 1.2 x 1.5 x 1.7 cm. MR/MR pelvis wo/w con IMPRESSION: -Circumscribed intramural mass lower uterine segment and cervix 3.3 x 3.9 x 4.0 cm. The appearance is most suggestive of intramural fibroid. -No adnexal mass or pelvic ascites. -Prior lumbosacral fusion with disc spacers L4-L5 and L5-S1. Several small intra-articular sacral meningoceles/Tarlov cysts, largest 1.2 x 1.5 x 1.7 cm.
== END 2022-04-25 14:32 | disposition home or self-care (01) ==
LOC: HO.MRI 14:31
PROVIDERS: PCP Internal Medicine; Visit Provider Advanced Practice Midwife
DX: N88.9 Noninflammatory disorder of cervix uteri, unspecified (principal)
CPT/HCPCS: 72197; A9585

== ENCOUNTER → 2022-05-23 15:03 | Outpatient (BNVA) | payer OTHER, SELFPAY | PROVIDERS: PCP Internal Medicine; Visit Provider Advanced Practice Midwife | DX: Z71.2 Person consulting for explanation of examination or test findings (principal); D25.1 Intramural leiomyoma of uterus | CPT/HCPCS: 99212 ==

== ENCOUNTER 2022-06-22 06:15 | Outpatient (REF) | payer OTHER, SELFPAY ==
[2022-06-22 11:48] LABS: Estimated Average Glucose 100 mg/dL; Hemoglobin A1c % 5.1 %
[2022-06-22 12:13] LABS: Anion Gap 12 (12-20); Blood Urea Nitrogen 14 mg/dL (9-16); Calcium 9.5 mg/dL (8.4-10.2); Carbon Dioxide 26 mmol/L (22-29); Chloride 102 mmol/L (96-108); Cholesterol 239 mg/dL; Estimated Glomerular Filt Rate > 60; Glucose Fasting 100 mg/dL (60-99); HDL Cholesterol 59 mg/dL; LDL Cholesterol Calculated 157 mg/dl; Potassium 4.4 mmol/L (3.3-5.1); Sodium 136 mmol/L (135-145); Triglycerides 115 mg/dL
== END 2022-06-22 06:16 | disposition home or self-care (01) ==
LOC: HO.HMGCLDS 06:15
PROVIDERS: PCP Internal Medicine; Visit Provider Internal Medicine
DX: I10 Essential (primary) hypertension (principal); R73.01 Impaired fasting glucose; E78.5 Hyperlipidemia, unspecified
CPT/HCPCS: 36415; 80048; 80061; 83036

== ENCOUNTER 2022-10-04 14:38 | Outpatient (AMB) | payer OTHER, SELFPAY ==
[2022-10-04 14:53] VITALS: BP 160/92; PULSE 81; O2SAT 97; BMI 26.1
--- NOTE | 2022-10-04 14:53 | A.OFFPC_ITS ---
Vital Signs 10/04/22 14:53 Height 5 ft 1 in Weight 138 lb BMI 26.1 BP 160/92 H Blood Pressure Location Lt brachial Position Sitting Pulse 81 Pulse Source Pulse Oximeter Pulse Oximetry (%) 97 Intake Visit Reasons: ED f/u 09/21 - seizures Intake Note: pt is here for ED f/u from 09/21 seizures Grip Assembler Required: No Allergies olanzapine Adverse Reaction (Severe, Verified 01/02/23 14:39) visual changes divalproex sodium [From Depakote] Adverse Reaction (Mild, Verified 01/02/23 14:39) hyperammonemia Medication List - Last Reconciled 10/04/22 by Suzanna Cervantes MD carvedilol 6.25 mg PO Q12H melatonin 3 mg PO BEDTIME olanzapine 2.5 mg PO Q8H PRN olanzapine 10 mg PO DAILY zolpidem 10 mg PO BEDTIME Tobacco use date assessed: 06/28/22 Dental Screening Dental Screen Date: 10/04/22 Did you have a dental visit in the last 12 months?: Yes Did you have a dental problem in the last 6 months where you did not have access to dental care?: No Was dental information given to patient?: Patient has dentist HPI ED f/u 09/21 - seizures HPI Details 62-year-old lady with history of dyslipi demia, hypertension, bipolar 2 disorder currently followed by psychiatry, here today for follow-up after recent ER visit at [facility] 09/21/2022 for a within seizure episode. Upon arrivala o ER, patient was found to have a tonic clonic seizure with bilateral upper extremities crossed, clenched teeth , with right eye deviation which lasted about 2 minutes . but no postictal episode seen. She was able to speak clearly afterwards, and was able to tell the ER staff that she has been recently diagnosed with hyponatremic seizures at an outside hospital. She has not had any seizure episodes in the past. 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 Her serum sodium at the ER was 133 making hyponatremic seizure less likely. She was seen by Neurology at an outside hospital and underwent video EEG with no findings of seizure activity. It was also noted that her blood pressure was elevated at the ER; CT of the head was done which came back unremarkable. She was discharged with a diagnosis of nonepileptic seizure. The patient currently drinking Gatorade, has not had any seizure episode since ER visit on 09/21/2022. However she would like a referral to see a neurologist for further evaluation and management [facility] Medical History Leiomyoma PTSD (post-traumatic stress disorder) Bipolar I disorder Tinea unguium History of psychogenic nonepileptic seizure Impaired fasting glucose Dyslipidemia (high LDL; low HDL) Hx of suicide attempt On beta baldemar at home Arthritis Anxiety Diastasis recti Umbilical hernia Compression fracture of L1 lumbar vertebra Dupuytren's contracture of left hand Lumbar disc herniation Essential hypertension Ventral hernia Urinary incontinence Surgical History H/O shoulder surgery Hx of elbow surgery Hx of repair of left rotator cuff Hx of colonoscopy History of lumbar fusion Family History Father Diabetes mellitus Mother COPD (chronic obstructive pulmonary disease) Sister Diabetes mellitus Glaucoma Other Mental health disorder Substance use disorder Household Members: Other Household Members Other:: brother Housing: House Are you a primary rn progressive care unit to a significant other at home: No Do you presently have visiting nurse or other home services: No Unable to assess alcohol history related to: Unknown Alcohol intake: current Alcohol intake frequency: holidays/special occasions only Patient Tobacco Use Status: Former Tobacco user Quit Date: 20 years ago Tobacco use type: Cigarette Cigarette Packs Per Day: 1 Cigarettes Per Day: 20.0 e-Cigarette/Vaping Use: Never Used Second Hand Smoke Exposure: No Substance Use Type: Marijuana Advance Directives Date on File: 11/26/22 service: No Current occupational status: disabled Sexual orientation: Straight/Heterosexual Cognitive needs: No Hearing needs: No Vision needs: No Questionnaire Thrive Questionnaire Date Thrive assessed: 04/09/22 DANNIE-7 AMB Questionnaire DANNIE-7 Date DANNIE - 7 assessed: 04/09/22 Source: Developed by Drs. Cirilo Chang, Amisha Norman, Rajan Montelongo and colleagues, with an educational krista from [employer]. Review of Systems Const Denies body aches, Denies fatigue, Denies fever(s), Denies headache(s) and Denies weakness Eyes Denies change in vision ENT Denies dizziness, Denies headache(s), Denies nasal congestion, Denies nasal discharge and Denies sore throat Card Denies chest pain, Denies lightheadedness, Denies palpitations and Denies dyspnea Resp Denies chest congestion, Denies cough, Denies dyspnea and Denies wheezing GI Denies abdominal pain, Denies change in bowel habits and Denies heartburn Reports no additional complaints Musc Reports no additional complaints Neuro Denies dizziness, Denies headache(s), Denies seizure-like activity and Denies weakness Psych Reports no additional complaints Endo Denies fatigue, Denies polydipsia, Denies polyuria and Denies palpitations Dayo/Lymph Reports no additional complaints Aller/Immun Denies wheezing Physical exam (Primary Care) Vital Signs: Last Vital Signs Pulse 81 10/04/22 14:53 BP 160/92 H 10/04/22 14:53 Pulse Ox 97 10/04/22 14:53 BMI result Body Mass Index 26.1 Tobacco/Smoking Status: Tobacco use Status Tobacco use date assessed 06/28/22 10/04/22 14:59 Patient Tobacco Use Status Former Tobacco user 10/04/22 14:59 Tobacco use type Cigarette 10/04/22 14:59 e-Cigarette/Vaping Use Never Used 10/04/22 14:59 Thrive Assessment: Date of Thrive Assessment Date Thrive assessed 04/09/22 10/04/22 14:59 Const Other: Alert oriented x3, no acute distress noted, ambulatory with normal gait Orientation/consciousness: patient oriented x3 [facility] Mouth: moist mucous membranes Eyes General: appearance normal, both eyes and all related structures Conjunctivae: conjunctivae normal Pupils: Equal, round and reactive pupils present EOM: EOMs intact bilaterally Neck Neck: Yes full ROM, Yes no lymphadenopathy and Yes supple Resp Auscultation: clear to auscultation bilaterally Cardio Other: S1 and S2 present regular rate and rhythm GI Palpation (GI): Soft to palpation, nontender and no guarding Auscultation: normal bowel sounds General: Yes no CVA tenderness Back/Spine/Pelvis Back: no CVA tenderness and No back tenderness Neuro General: patient oriented x3, gait normal, tone normal, moves all extremities, no focal motor deficits and CN's II-XI intact bilaterally Cranial nerves: Yes Equal, round and reactive pupils present Extrem General: Yes full ROM, Yes no joint enlargement, Yes no pedal edema and Yes normal gait Psych Appearance: grossly normal and well kempt Mental Status: mental status grossly normal Speech and movement: Normal speech and movement present Affect: normal affect Attitude: cooperative Thought process: Normal thought process present Assessment and Plan Assessment & Plan (1) History of psychogenic nonepileptic seizure: Code(s): Z87.898 - Personal history of other specified conditions Plan: Has not had a seizure episode since her discharge from the hospital. Referral to Neurology ordered for further evaluation management (2) Essential hypertension: Code(s): I10 - Essential (primary) hypertension Plan: Increased carvedilol dose to 12.5 mg 1 tablet twice a day, follow-up in a week to check blood pressure. Orders: Referrals Neurology Referral Z87.898 - Personal history of other specified conditions Medications: Changed From carvedilol must administer with a meal/food 6.25 mg PO Q12H 60 tabs 2RF To carvedilol must administer with a meal/food 12.5 mg PO Q12H 60 tabs 0RF Coding Level of Care Code Est Pt Level 3 (97812) Diagnoses History of psychogenic nonepileptic seizure Z87.898 Essential hypertension I10
== END 2022-10-04 16:17 | disposition home or self-care (01) ==
PROVIDERS: PCP Internal Medicine; Visit Provider Internal Medicine
DX: Z87.898 Personal history of other specified conditions (principal); I10 Essential (primary) hypertension
CPT/HCPCS: 99213

== ENCOUNTER 2022-10-11 10:52 | Outpatient (AMB) | payer OTHER, SELFPAY ==
[2022-10-11 11:10] VITALS: BP 122/84; PULSE 72; O2SAT 95; BMI 26.1
--- NOTE | 2022-10-11 11:10 | MHC.PC.OV ---
Vital Signs 10/11/22 11:10 Height 5 ft 1 in Weight 138 lb BMI 26.1 BP 122/84 Blood Pressure Location Lt brachial Position Sitting Pulse 72 Pulse Source Pulse Oximeter Pulse Oximetry (%) 95 Oxygen Delivery Method Room Air Intake Visit Reasons: Annual PE Intake Note: Pt is here today for her PE Allergies olanzapine Adverse Reaction (Severe, Verified 01/02/23 14:39) visual changes divalproex sodium [From Depakote] Adverse Reaction (Mild, Verified 01/02/23 14:39) hyperammonemia Medication List - Last Reconciled 10/11/22 by Suzanna Cervantes MD carvedilol 12.5 mg PO Q12H melatonin 3 mg PO BEDTIME olanzapine 5 mg PO DAILY terbinafine HCl 0 mg PO zolpidem 10 mg PO BEDTIME Tobacco use date assessed: 10/11/22 Dental Screening Dental Screen Date: 10/11/22 Did you have a dental visit in the last 12 months?: Yes Did you have a dental problem in the last 6 months where you did not have access to dental care?: No Was dental information given to patient?: Patient has dentist HPI Annual PE HPI Details 62-year-old lady here today for physical exam. She is due for screening mammogram , is up-to-date with her cervical cancer screening, goes to [facility]. She had a screening colonoscopy done by Dr. Norton in 2012, due again this year. Blood pressure stable controlled on carvedilol. She is followed by psychiatry for her bipolar disorder/PTSD . [facility] Medical History Leiomyoma PTSD (post-traumatic stress disorder) Bipolar I disorder Tinea unguium History of psychogenic nonepileptic seizure Impaired fasting glucose Dyslipidemia (high LDL; low HDL) Hx of suicide attempt On beta baldemar at home Arthritis Anxiety Diastasis recti Umbilical hernia Compression fracture of L1 lumbar vertebra Dupuytren's contracture of left hand Lumbar disc herniation Essential hypertension Ventral hernia Urinary incontinence Surgical History H/O shoulder surgery Hx of elbow surgery Hx of repair of left rotator cuff Hx of colonoscopy History of lumbar fusion Family History Father Diabetes mellitus Mother COPD (chronic obstructive pulmonary disease) Sister Diabetes mellitus Glaucoma Other Mental health disorder Substance use disorder Household Members: Other Household Members Other:: brother Housing: House Are you a primary health care sanitary technician to a significant other at home: No Do you presently have visiting nurse or other home services: No Unable to assess alcohol history related to: Unknown Alcohol intake: current Alcohol intake frequency: holidays/special occasions only Patient Tobacco Use Status: Former Tobacco user Quit Date: 20 years ago Tobacco use type: Cigarette Cigarette Packs Per Day: 1 Cigarettes Per Day: 20.0 e-Cigarette/Vaping Use: Never Used Second Hand Smoke Exposure: No Substance Use Type: Marijuana Advance Directives Date on File: 11/26/22 service: No Current occupational status: disabled Sexual orientation: Straight/Heterosexual Cognitive needs: No Hearing needs: No Vision needs: No Questionnaire Thrive Questionnaire Date Thrive assessed: 04/09/22 AUDIT C Alcohol Use Questionnaire (AUDIT-C) 1. How often do you have a drink containing alcohol?: Never Total Score: 0 DANNIE-7 AMB Questionnaire DANNIE-7 Date DANNIE - 7 assessed: 04/09/22 Source: Developed by Drs. Cirilo Chang, Amisha Norman, Rajan Montelongo and colleagues, with an educational krista from [employer]. Review of Systems Const Denies body aches, Denies fatigue, Denies fever(s), Denies headache(s) and Denies weakness Eyes Details: Goes to [facility] in [place] Denies change in vision ENT Details: Goes to [facility] in [place] for dental prophylaxis every 6 month Denies dizziness, Denies headache(s), Denies nasal congestion, Denies nasal discharge and Denies sore throat Card Denies chest pain, Denies lightheadedness, Denies palpitations and Denies dyspnea Resp Denies chest congestion, Denies cough, Denies dyspnea and Denies wheezing GI Denies abdominal pain, Denies change in bowel habits and Denies heartburn Details: Goes to [facility] for routine Pap and pelvic exam, currently up-to-date Reports no additional complaints Musc Reports no additional complaints Neuro Denies dizziness, Denies headache(s), Denies seizure-like activity and Denies weakness Psych Reports no additional complaints Endo Denies fatigue, Denies polydipsia, Denies polyuria and Denies palpitations Dayo/Lymph Reports no additional complaints Aller/Immun Denies wheezing Physical exam (Primary Care) Vital Signs: Last Vital Signs Pulse 72 10/11/22 11:10 BP 122/84 10/11/22 11:10 Pulse Ox 95 10/11/22 11:10 Oxygen Delivery Method Room Air 10/11/22 11:10 BMI result Body Mass Index 26.1 Tobacco/Smoking Status: Tobacco use Status Tobacco use date assessed 10/11/22 10/11/22 11:15 Patient Tobacco Use Status Former Tobacco user 10/11/22 11:15 Tobacco use type Cigarette 10/11/22 11:15 e-Cigarette/Vaping Use Never Used 10/11/22 11:15 Thrive Assessment: Date of Thrive Assessment Date Thrive assessed 04/09/22 10/11/22 11:15 Const Other: Alert oriented x3, no acute distress noted, ambulatory with normal gait Orientation/consciousness: patient oriented x3 HENMT Mouth: moist mucous membranes Eyes General: appearance normal, both eyes and all related structures Conjunctivae: conjunctivae normal Pupils: Equal, round and reactive pupils present EOM: EOMs intact bilaterally Neck Neck: Yes full ROM, Yes no lymphadenopathy and Yes supple Resp Auscultation: clear to auscultation bilaterally Cardio Other: S1 and S2 present regular rate and rhythm GI Palpation (GI): Soft to palpation, nontender and no guarding Auscultation: normal bowel sounds General: Yes no CVA tenderness Back/Spine/Pelvis Back: no CVA tenderness and No back tenderness Skin Other: Thick discolored toenails in both feet Neuro General: patient oriented x3, gait normal, tone normal, moves all extremities, no focal motor deficits and CN's II-XI intact bilaterally Cranial nerves: Yes Equal, round and reactive pupils present Extrem General: Yes full ROM, Yes no joint enlargement, Yes no pedal edema and Yes normal gait Psych Appearance: grossly normal and well kempt Mental Status: mental status grossly normal Speech and movement: Normal speech and movement present Affect: normal affect Attitude: cooperative Thought process: Normal thought process present Assessment and Plan Assessment & Plan (1) Annual visit for general adult medical examination with abnormal findings: Code(s): Z00.01 - Encounter for general adult medical examination with abnormal findings Plan: Will check appropriate labs. Goes to [facility] every 6 months for her dental prophylaxis and sees [facility] in [place] for her regular eye exams, at least every 2 years. Take adequate calcium in diet and vitamin-D 3 at 2000 IU per cap once a day, in addition to weight-bearing exercises to help maintain good muscle tone and weight control. Instructed to do self-breast exam, and continue get yearly mammogram, already scheduled for October 2022. Bone Density scan was also ordered to be done together with her screening mammogram. Referred for screening colonoscopy to [facility], wants a female provider. Up-to-date with her COVID vaccine, reminded to get the booster, gets yearly flu shots, up-to-date with her shingles vaccine and Tdap and pneumonia vaccine. Patient states that she received her RSV vaccine 10/05/2022 at [facility] (2) Screening for osteoporosis: Code(s): Z13.820 - Encounter for screening for osteoporosis Plan: Bone density scan ordered (3) Tinea unguium: Comment: left big toe , ff'd by Vaishali Lynn Code(s): B35.1 - Tinea unguium (4) Impaired fasting glucose: Code(s): R73.01 - Impaired fasting glucose Plan: Your fasting blood sugars in the past were elevated above 100 mg/dL. Impaired glucose metabolism O2 at risk for developing diabetes mellitus type 2, as well as heart attack and stroke later on. Lifestyle changes at just weight loss, healthy eating habits, and regular exercise are important, and can prevent the progression to diabetes (5) Dyslipidemia (high LDL; low HDL): Code(s): E78.5 - Hyperlipidemia, unspecified Plan: Fasting lipid panel ordered (6) Essential hypertension: Code(s): I10 - Essential (primary) hypertension Plan: Blood pressure at goal of less than 130/80. Continue with current medication. Reinforced importance of following a low sodium diet, getting regular exercise, and lowering stress levels. (7) Bipolar 2 disorder: Comment: sees Yesika Camacho at [facility] Code(s): F31.81 - Bipolar II disorder Plan: Currently followed by psychiatry (8) Colon cancer screening: Code(s): Z12.11 - Encounter for screening for malignant neoplasm of colon Plan: Referred to [facility] for her repeat screening colonoscopy Orders: Orders XR DEXA axial skeleton 10/11/22 S32.010A - Wedge compression fracture of first lumbar vertebra, initial encounter for closed fracture, Z78.0 - Asymptomatic menopausal state, Z13.820 - Encounter for screening for osteoporosis Lipid Panel 10/11/22 B35.1 - Tinea unguium, R73.01 - Impaired fasting glucose, E78.5 - Hyperlipidemia, unspecified, I10 - Essential (primary) hypertension, F31.81 - Bipolar II disorder, Z00.01 - Encounter for general adult medical examination with abnormal findings, S32.010A - Wedge compression fracture of first lumbar vertebra, initial encounter for closed fracture, Z13.820 - Encounter for screening for osteoporosis Comprehensive [place]. Panel Fast 10/11/22 B35.1 - Tinea unguium, R73.01 - Impaired fasting glucose, E78.5 - Hyperlipidemia, unspecified, I10 - Essential (primary) hypertension, F31.81 - Bipolar II disorder, Z00.01 - Encounter for general adult medical examination with abnormal findings, S32.010A - Wedge compression fracture of first lumbar vertebra, initial encounter for closed fracture, Z13.820 - Encounter for screening for osteoporosis Vitamin D 25-OH Total 10/11/22 B35.1 - Tinea unguium, R73.01 - Impaired fasting glucose, E78.5 - Hyperlipidemia, unspecified, I10 - Essential (primary) hypertension, F31.81 - Bipolar II disorder, Z00.01 - Encounter for general adult medical examination with abnormal findings, S32.010A - Wedge compression fracture of first lumbar vertebra, initial encounter for closed fracture, Z13.820 - Encounter for screening for osteoporosis Referrals Gastroenterology Referral Z12.11 - Encounter for screening for malignant neoplasm of colon Coding Level of Care Code Est Pt Prev Care 40-64y([id number]) Diagnoses Annual visit for general adult medical examination with abnormal findings Z00.01 Screening for osteoporosis Z13.820 Tinea unguium B35.1 Impaired fasting glucose R73.01 Dyslipidemia (high LDL; low HDL) E78.5 Essential hypertension I10 Bipolar 2 disorder F31.81 Colon cancer screening Z12.11
== END 2022-10-11 11:49 | disposition home or self-care (01) ==
PROVIDERS: PCP Internal Medicine; Visit Provider Internal Medicine
DX: Z00.00 Encounter for general adult medical examination without abnormal findings (principal); Z13.820 Encounter for screening for osteoporosis; F31.81 Bipolar II disorder; B35.1 Tinea unguium; R73.01 Impaired fasting glucose; E78.5 Hyperlipidemia, unspecified; I10 Essential (primary) hypertension; Z12.11 Encounter for screening for malignant neoplasm of colon
CPT/HCPCS: 99396

== ENCOUNTER 2022-10-23 09:38 | Outpatient (REF) | payer OTHER, SELFPAY ==
[2022-10-23 12:25] LABS: Alanine Aminotransferase 29 U/L (0-31); Albumin Level 4.2 g/dL (3.5-5.0); Alkaline Phosphatase 74 U/L (39-117); Anion Gap 13 (12-20); Aspartate Amino Transferase 23 U/L (5-31); Bilirubin Total 0.5 mg/dL (0.0-1.0); Blood Urea Nitrogen 8 mg/dL (9-16); Calcium 9.9 mg/dL (8.4-10.2); Carbon Dioxide 24 mmol/L (22-29); Chloride 104 mmol/L (96-108); Cholesterol 250 mg/dL (<200); Estimated Glomerular Filt Rate > 60; Glucose Fasting 112 mg/dL (60-99); HDL Cholesterol 58 mg/dL (>40); LDL Cholesterol Calculated 174 mg/dL (<100); Sodium 137 mmol/L (135-145); Total Protein 7.2 g/dL (6.5-8.0); Triglycerides 94 mg/dL (<150); Vitamin D 25-OH Total 47.1 ng/mL (>30)
== END 2022-10-23 09:39 | disposition home or self-care (01) ==
LOC: HO.HMGCLDS 09:38
PROVIDERS: PCP Internal Medicine; Visit Provider Internal Medicine
DX: Z00.01 Encounter for general adult medical examination with abnormal findings (principal); Z13.820 Encounter for screening for osteoporosis; B35.1 Tinea unguium; R73.01 Impaired fasting glucose; E78.5 Hyperlipidemia, unspecified; I10 Essential (primary) hypertension; F31.81 Bipolar II disorder; S32.010A Wedge compression fracture of first lumbar vertebra, initial encounter for closed fracture
CPT/HCPCS: 36415; 80053; 80061; 82306

== ENCOUNTER 2022-10-25 23:43 | Emergency (ER) | payer OTHER, SELFPAY ==
[2022-10-25 23:50] VITALS: BP 148/102; PULSE 112; PULSE 96; TEMP 36.7; O2SAT 96; BMI 45.9
[2022-10-25 23:55] VITALS: BP 112/74; PULSE 91; RESP 16; TEMP 36.7
[2022-10-26] VITALS (9 sets, daily range): BP systolic 95–185; BP diastolic 53–118; PULSE 83–127; RESP 16–30; TEMP 36.8–36.9; O2SAT 94–98
--- NOTE | 2022-10-26 00:05 | ED_ITS ---
HPI - Seizure General Chief Complaint: Seizure Stated Complaint: seizure Time Seen by Provider: 10/25/22 23:53 History of Present Illness HPI Narrative: Patient history of psychogenic nonepileptic seizure , bipolar disorder, hypertension, anxiety comes from [facility] by EMS for having seizures all day patient was waiting for 5 hours in the ER and was unhappy as she was in the hallway patient states that he she gets seizure-like activity which causes the mouth become stiff and she was unable to speak no tonic clonic activity no postictal confusion no tongue bite Seizure History: Yes Place: Home Related Data Home Medications Medication Instructions Recorded Confirmed melatonin 3 mg tablet 3 mg PO BEDTIME 05/22/22 10/11/22 zolpidem 10 mg tablet 10 mg PO BEDTIME 10/04/22 10/11/22 olanzapine 10 mg tablet 5 mg PO DAILY 10/11/22 10/11/22 terbinafine HCl 250 mg tablet 0 mg PO 10/11/22 10/11/22 Previous Rx's Medication Instructions Recorded carvedilol 12.5 mg tablet 12.5 mg PO Q12H #180 tabs 10/05/22 Allergies Allergy/AdvReac Type Severity Reaction Status Date / Time No Known Allergies Allergy Verified 10/11/22 11:32 [No Known Allergies*] Review of Systems Review of Systems: Yes all other systems are reviewed and are negative PMFSH Past Medical History Medical History Tinea unguium History of psychogenic nonepileptic seizure Impaired fasting glucose Dyslipidemia (high LDL; low HDL) Hx of suicide attempt On beta baldemar at home Arthritis Anxiety Diastasis recti Umbilical hernia Compression fracture of L1 lumbar vertebra Dupuytren's contracture of left hand Lumbar disc herniation Essential hypertension Ventral hernia Urinary incontinence PTSD (post-traumatic stress disorder) Bipolar 2 disorder Surgical History H/O shoulder surgery Hx of elbow surgery Hx of repair of left rotator cuff Hx of colonoscopy History of lumbar fusion Family History Family History Father Diabetes mellitus Mother COPD (chronic obstructive pulmonary disease) Sister Diabetes mellitus Glaucoma Other Mental health disorder Substance use disorder Social History Social History Housing: House Are you a primary primary care coordinator to a significant other at home: No Alcohol intake: current Alcohol intake frequency: a few times a week Patient Tobacco Use Status: Former Tobacco user Quit Date: 16 yrs prior Tobacco use type: Cigarette Cigarette Packs Per Day: 1 Cigarettes Per Day: 20.0 e-Cigarette/Vaping Use: Never Used Advance Directives: No Advance Directives Information Provided: Yes service: No Current occupational status: disabled Cognitive needs: No Hearing needs: No Vision needs: No Physical Exam Vital Signs: Vital Signs: Last Vital Signs Temp 98.4 F 10/26/22 02:40 Pulse 110 H 10/26/22 02:40 Resp 30 H 10/26/22 02:40 BP 185/118 H 10/26/22 02:40 Pulse Ox 98 10/26/22 02:40 O2 Del Method Room Air 10/26/22 02:40 O2 Flow Rate 97 10/25/22 23:55 BMI result Body Mass Index 45.9 Appearance: Alert. Oriented X3. No acute distress. Anxious Eyes: PERRLA, No Nystagmus ENT: Pharynx normal. Oral Mucosa moist Neck: Normal inspection. Neck supple. CVS: Normal heart rate and rhythm. Pulses normal. Respiratory: No respiratory distress. Equal air entry bilateral, no wheezing/rales/rhonchi Abdomen: Soft and nontender. Bowel sounds are present, no mass palpable, no CVA tenderness G-tube in place Skin: Skin warm and dry. Normal skin color. Normal skin turgor. Extremities: No lower extremity edema. No calf tenderness Neuro: Oriented X 3. No motor deficit. No sensory deficit.No cerebellar signs , cranial nerves II-XII intact Medical Decision Making Medical Decision Making MDM Narrative: Patient with nonepileptic seizure patient aware during the episode of seizures when she stops talking clinically patient does not have any appeal witnessed by the staff and myself in the ER patient advised to continue medication follow with PCP Differential Diagnosis Differential Diagnoses: The differential diagnosis associated with the presentation includes Epilepsy/ pseudoseizures/ anxiety External Record Review External record reviewed: Outside ED record Per records from [facility] patient was seen earlier today at 17:30 at [facility] had a detailed workup done including CT and patient discharged and patient came from the ER Discharge Plan Discharge Clinical Impression: Psychogenic nonepileptic seizure Patient Disposition: Home, Self-Care Instructions: Conversion Disorder (ED) Additional Instructions: No seizure was noticed in the ER patient acted like having seizure and called the staff at the time of this episode or artist patient having open mouth with no jerking movements Prescriptions: No Action carvedilol 12.5 mg tablet 12.5 mg PO Q12H Qty: 180 0RF Rx Instructions: must administer with a meal/food melatonin 3 mg tablet 3 mg PO BEDTIME terbinafine HCl 250 mg tablet 0 mg PO olanzapine 10 mg tablet 5 mg PO DAILY zolpidem 10 mg tablet 10 mg PO BEDTIME
--- NOTE | 2022-10-26 00:52 | MHC.EDTECH ---
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
[2022-10-26] MEDS: diphenhydrAMINE HCL 50 MG/ML VIAL IM (04:45)
[2022-10-26] MEDS: OLANZapine 10 MG VIAL IM (04:45)
[2022-10-26] MEDS: LORazepam 2 MG/ML VIAL IM (04:45)
--- NOTE | 2022-10-26 05:00 | PC.NURSE ---
Patient loud disruptive, intrusive, thought content delusional paranoid, thought process incoherent & tangential, demanding to place on her argon tester, exit seeking, provider notified/administered Ativan 2 mg IM, Olanzapine 10 mg IM, and Benadryl 50 mg Im at 0445, complaint with IM shot, currently in bed resting quietly, observed on 1:1 per restraint protocol, med rec completed/pending provider's approval, care consult ordered/pending evaluation, blood work pending, urine completed, will continue to monitor.
--- NOTE | 2022-10-26 07:52 | PC.NURSE ---
sleeping and easily woken, labs drawn, pt with steady gait to bathroom, calm with nad, speech clear, I'm ok ,
[2022-10-26 08:05] LABS: Ethanol < 10 mg/dL
[2022-10-26 08:06] LABS: Alanine Aminotransferase 20 U/L (0-31); Albumin Level 3.8 g/dL (3.5-5.0); Alkaline Phosphatase 65 U/L (39-117); Anion Gap 16 (12-20); Aspartate Amino Transferase 22 U/L (5-31); Bilirubin Total 0.5 mg/dL (0.0-1.0); Blood Urea Nitrogen 12 mg/dL (9-16); Calcium 9.3 mg/dL (8.4-10.2); Carbon Dioxide 18 mmol/L (22-29); Chloride 106 mmol/L (96-108); Creatinine Clr Calc Pharmacy 89.2; Estimated Glomerular Filt Rate > 60; Glucose Random 103 mg/dL (60-115); Potassium 4.2 mmol/L (3.3-5.1); Sodium 136 mmol/L (135-145); Total Protein 6.5 g/dL (6.5-8.0)
[2022-10-26 08:21] LABS: TSH reflex Free T4 2.08 uIU/mL (0.32-4.0)
[2022-10-26 08:32] LABS: Basophils Percent Auto 0.4 % (0-2); Eosinophils Percent Auto 0.3 % (0-4); Hematocrit 41.2 % (37.0-47.0); Hemoglobin 14.6 g/dl (12.0-16.0); Imm Gran Abs Auto 0.04 X10*3/uL (0.00-0.03); Imm Gran Pct Auto 0.4 % (0.0-0.4); Lymphocytes Absolute Auto 1.5 X10*3/uL (1.2-4.9); Mean Corpuscular HGB Conc 35.4 g/dl (31.0-35.0); Mean Corpuscular Hemoglobin 29.8 pg (27.0-33.0); Mean Corpuscular Volume 84.1 fL (80.0-98.0); Mean Platelet Volume 9.7 fL (9.4-12.3); Monocytes Absolute Auto 0.5 X10*3/uL (0.1-1.2); Monocytes Percent Auto 4.7 % (2-11); Neutrophils Absolute Auto 8.6 x10*3/uL (2.0-8.3); Neutrophils Percent Auto 80.2 % (45-73); Platelet Count 302 X10*3/uL (160-400); White Blood Count 10.7 X10*3/uL (4.8-10.8)
[2022-10-26 08:34] LABS: MANUAL DIFF FLAG NO
--- NOTE | 2022-10-26 10:46 | PHA.MEDREC ---
Pharmacy Consult ? Medication Reconciliation Pharmacy has completed the medication reconciliation. Reviewed med rec done by nursing
[2022-10-26 11:33] LABS: Appearance Urine Clear; Color Urine Yellow; Glucose Urine UA Negative (Negative); Leukocyte Esterase Urine Trace (Negative); Nitrite Urine Negative (Negative); UMIC TRIGGER UACC YES; Urine Blood Negative (Negative); Urine Ketones 15 mg/dL (Negative); Urine Protein Negative (Neg-Trace)
[2022-10-26 11:36] LABS: Bacteria Urine None Seen (None Seen); Hyaline Casts Urine 0-2 /LPF (0-2); RBC Urine 0-2 /HPF (0-2); Squamous Epithelial Cell Urine 0-2 /HPF (0-2); WBC Urine 0-5 /HPF (0-5)
[2022-10-26 11:45] LABS: Amphetamine Screen Urine Not Detected (Not Detect); Barbiturates, Urine Not Detected (Not Detect); Benzodiazepines Screen Urine POSITIVE (Not Detect); Cannabinoid Screen Urine POSITIVE (Not Detect); Cocaine Screen Urine Not Detected (Not Detect); Fentanyl, urine Not Detected (Not Detect); Opiate Screen Urine Not Detected (Not Detect); Phencyclidine Screen Urine Not Detected (Not Detect)
--- NOTE | 2022-10-26 14:40 | PC.NURSE ---
CARE eval complete, pt probably going home but they need to speak with the pt's brother, and he hasn't returned their call, the pt caller her brother as well and left a message, pt has been calm and cooperative and denies si/h, currently sleeping
== END 2022-10-26 15:47 | disposition home or self-care (01) ==
PROVIDERS: Internal Medicine; Emergency Provider Emergency Medicine Emergency Medical Services
DX: R56.9 Unspecified convulsions (principal); R45.1 Restlessness and agitation; F43.10 Post-traumatic stress disorder, unspecified; F31.9 Bipolar disorder, unspecified; I10 Essential (primary) hypertension; E78.5 Hyperlipidemia, unspecified; E66.9 Obesity, unspecified; Z68.42 Body mass index [BMI] 45.0-49.9, adult; Z87.891 Personal history of nicotine dependence; Z79.899 Other long term (current) drug therapy
CPT/HCPCS: 36415; 80053; 80307; 81001; 84443; 85025; 96372; 99284; J1200; J2060; S9485

== ENCOUNTER 2022-10-30 07:52 | Outpatient (AMB) | payer OTHER, SELFPAY ==
--- NOTE | 2022-10-30 07:55 | MHC.OFFVIS ---
Intake Vital Signs 10/30/22 08:06 Height 5 ft 1 in Weight 133 lb 8 oz BMI 25.2 BP 150/92 H Blood Pressure Location Lt brachial Position Sitting Pulse 93 Pulse Source Pulse Oximeter Pulse Oximetry (%) 97 Oxygen Delivery Method Room Air Intake Visit Reasons: INP-Hx of other specified conditions Intake Note: Inpatient states had seizure Exhibit Specialist Required: No Allergies olanzapine Adverse Reaction (Severe, Verified 10/30/22 08:00) visual changes HPI HPI Comments History of Present Illness Details 62 y/o female patient with hx of psychogenic non epileptic seizure, bipolar, anxiety presents with her for new in-person visit for evaluation of seizure likely activity. Pt is not a good historian, and her helped for patient's history. Pt reports seizure like activity, it can happen multiple times a day and there is no triggers. Pt reports that her seizure is become stiff, unable to speak but not lost consciousness. Pt states that she remember what happens, she can't speak and her body stiffened and can't move. Denies disorientation, confusion, tongue bite or incontinence episodes. The recent episode was on 10/25 and visit ED. Pt's states that patient was very agitated, and lost speech. Per patient's , patient's BP was very high, not sure exactly but SBP was higher than 190s. CT of brain result was no evidence of intracranial hemorrhage, mass effect or midline shift. Mild chronic small vessel ischemia and volume loss. Pt reports that the first seizure like episode was in 2021 while she was hospitalized in psychiatry unit for SI. She was overdosed, pt's reports she took her all her lisinopril and clonazepam at that time. Pt was prescribed keppra, but she did not like it and stopped taking it couple of days later. It caused more irritation and anxiety. She was prescribed keppra in the past, she did not like it, very irritated and stopped taking it after couple of days. Pt also reports difficulty falling asleep and staying sleep. She snores and having gasping arousals, non refresh sleep with daytime tiredness. Sleep questionnaire: Have you ever been diagnosed with a sleep disorder? Insomnia. Have you ever had a sleep study in the past? No. Have you ever been treated for a sleep disorder? Yes, with ambien. Do you take medications for a sleep disorder? ambien 10 mg Do you snore? Yes. Do you wake up gasping at night? Yes. Do you have episodes of apneas? Yes. If yes, are they witnessed? Yes. Do you have episodes of nocturnal chest pain or dyspnea? No. Do you have difficulty initiating sleep? Yes. Do you have difficulty maintaining sleep? Yes. Do you wake up tired? Yes. Do you have headaches upon awakening? No. Do you wake up with dry mouth or throat? Yes. Do you have GERD? No. Do you have nocturia? Yes Do you have nocturnal leg cramps? No. Do you have symptoms of restless legs? No. Do you act out your dreams? No. Sleep hygiene questionnaire: What is your usual sleep routine? No. Usual bedtime is at ; Usual wake up time is at . Do you take naps? No. Is your sleep environment cool, dark, and quiet? Yes. Do you exercise? No. Do you take caffeine or other stimulants? No. Do you use electronics in bed? Yes. What is your work schedule? N/A. Hypersomnolence questionnaire: Do you have daytime tiredness or fatigue? Yes. Do you easily fall asleep when inactive? No. Have you ever had episodes of sudden weakness? No. Have you ever had episodes of sudden weakness associated with strong emotions? No. PFSH Medical History Tinea unguium History of psychogenic nonepileptic seizure Impaired fasting glucose Dyslipidemia (high LDL; low HDL) Hx of suicide attempt On beta baldemar at home Arthritis Anxiety Diastasis recti Umbilical hernia Compression fracture of L1 lumbar vertebra Dupuytren's contracture of left hand Lumbar disc herniation Essential hypertension Ventral hernia Urinary incontinence PTSD (post-traumatic stress disorder) Bipolar 2 disorder Surgical History H/O shoulder surgery Hx of elbow surgery Hx of repair of left rotator cuff Hx of colonoscopy History of lumbar fusion Family History Father Diabetes mellitus Mother COPD (chronic obstructive pulmonary disease) Sister Diabetes mellitus Glaucoma Other Mental health disorder Substance use disorder Social History (Updated 10/30/22 @ 08:06 by Mirtha Miller CMA) Housing: House Are you a primary home day care provider to a significant other at home: No Alcohol intake: former Patient Tobacco Use Status: Former Tobacco user Quit Date: 16 yrs prior Tobacco use type: Cigarette Cigarette Packs Per Day: 1 Cigarettes Per Day: 20.0 e-Cigarette/Vaping Use: Never Used Substance Use Type: Marijuana service: No Current occupational status: disabled Cognitive needs: No Hearing needs: No Vision needs: No Review of Systems Const All systems reviewed & are unremarkable except as noted in HPI and below ENT Reports Normal hearing present Neuro Reports Normal hearing present Physical Exam Vital Signs: Last Vital Signs Pulse 93 10/30/22 08:06 BP 150/92 H 10/30/22 08:06 Pulse Ox 97 10/30/22 08:06 Oxygen Delivery Method Room Air 10/30/22 08:06 BMI result Body Mass Index 25.2 Const General: anxious Nutritional Appearance: average body habitus Orientation/consciousness: patient oriented x3 Neck Neck: Yes full ROM and Yes supple Resp Effort & Inspection: normal respiratory effort and able to speak in complete sentences Neuro General: patient oriented x3 and moves all extremities Cranial nerves: Yes Bilaterally intact EOM present, Yes Normal facial strength present, Yes Midline tongue present, Yes Symmetric palate elevation present, Yes Normal hearing present, Yes Ability to bilaterally rotate head present and Yes Ability to bilaterally elevate shoulders present Cognition (Neuro): normal cognition Gait exam (Neuro): Antalgic gait present Motor exam (neuro): 5/5 motor strength present throughout, Pronator motor function not present and no tremor noted Psych Appearance: grossly normal Affect: Anxious affect present and Irritable affect present Assessment & Plan Assessment & Plan (1) Snoring: Code(s): R06.83 - Snoring (2) History of psychogenic nonepileptic seizure: Code(s): Z87.898 - Personal history of other specified conditions (3) Daytime sleepiness: Code(s): R40.0 - Somnolence (4) Insomnia: Code(s): G47.00 - Insomnia, unspecified Plan Pt is advised to undergo home sleep study to assess for sleep apnea. Will f/u with pt after study to discuss results and appropriate treatment options. Refer patient to [facility] for further evaluation for seizure likely activity. Sleep hygiene education provided. Pt to call with any worsening concerns or questions. Orders: Orders RT home sleep study 10/30/22 I10 - Essential (primary) hypertension, R06.83 - Snoring, R40.0 - Somnolence Referrals Neurology Referral Z87.898 - Personal history of other specified conditions Coding Level of Care Code New Pt Level 4 (20155) Diagnoses Snoring R06.83 History of psychogenic nonepileptic seizure Z87.898 Daytime sleepiness R40.0 Insomnia G47.00
[2022-10-30 08:06] VITALS: BP 150/92; PULSE 93; O2SAT 97; BMI 25.2
== END 2022-10-30 08:57 | disposition home or self-care (01) ==
PROVIDERS: PCP Internal Medicine; Visit Provider Nurse Practitioner Family
DX: R06.83 Snoring (principal); Z87.898 Personal history of other specified conditions; R40.0 Somnolence; G47.00 Insomnia, unspecified
CPT/HCPCS: 99204

== ENCOUNTER 2022-11-01 08:16 | Outpatient (REF) | payer OTHER, SELFPAY | END 2022-11-01 08:17 | disposition home or self-care (01) | LOC: HO.MAMMO 08:16 | PROVIDERS: Visit Provider Internal Medicine | DX: Z13.89 Encounter for screening for other disorder (principal) ==

== ENCOUNTER 2022-11-01 08:16 | Outpatient (REF) | payer OTHER, SELFPAY ==
--- NOTE | ~2022-11-01 | MM_ITS ---
EXAMINATION: BONE DENSITOMETRY CLINICAL INDICATION: Wedge compression fracture of 1st lumbar vertebra. COMPARISON: This is the patient's baseline examination. TECHNIQUE: Using a [place]-8 DXA System (software version: 13.1) manufactured by [employer], dual-energy x-ray absorptiometry was performed of the lumbar spine and left hip. The images are of good technical quality. Summary results are attached. FINDINGS: LEFT FEMUR, NECK: BMD 0.766 g/cm2, Z-score -0.5, T-score -2.0, osteopenia. LEFT FEMUR, TOTAL: BMD 0.795 g/cm2, Z-score -0.5, T-score -1.7, osteopenia. AP SPINE L1-L2 (excluding L3 and L4): The data of L1-L4 has been changed to exclude the L3 and L4 vertebral bodies, because hardware at these levels may cause overestimation of lumbar spine density. BMD 0.934 g/cm2, Z-score -0.4, T-score -1.9, osteopenia. IDENTIFIED RISK FACTORS: Menopause, height loss, history of fracture (adult), osteoporosis. HISTORY OF FRACTURE: Spine, shoulder, elbow. MEDICATIONS: Calcium. MM/XR DEXA axial skeleton IMPRESSION: 1. DIAGNOSIS: Osteopenia based on the lowest T-score value of -2.0 in the femoral neck applying World Health Organization criteria. 2. 10-YEAR FRACTURE RISK PREDICTION, FRAX: Major osteoporotic fracture (clinical spine, forearm, hip or shoulder) 16.7%. Hip fracture 2.3%. 3. Treatment Recommendations: NOF guidelines recommend consideration for treatment in postmenopausal women and men age 50 and older presenting with the following: -A hip or vertebral (clinical or morphometric) fracture. -T-score less than or equal to -2.5 at the femoral neck or spine after appropriate evaluation to exclude secondary causes. -Low bone mass at the hip or spine and a 10-year fracture probability by FRAX of greater than or equal to 3% for hip fracture or greater than or equal to 20% for major osteoporotic fracture based on the [place] adapted WHO algorithm. 4. Other Recommendations: All treatment decisions require clinical judgment and consideration of individual patient factors, including patient preferences, comorbidities, previous drug use, risk factors not captured in the FRAX model (e.g. frailty, falls, vitamin D deficiency, increased bone turnover, interval significant decline in bone density) and possible under or overestimation of fracture risk by FRAX. Additional medical evaluation for secondary cause of low bone mineral density may be appropriate. FUTURE SCAN RECOMMENDATION: People with diagnosed cases of osteoporosis or at high risk for fracture should have regular bone mineral density tests. For patients eligible for Medicare, routine testing is allowed once every 2 years. The testing frequency can be increased to one year for patients who have rapidly progressing disease, those who are receiving or discontinuing medical therapy to restore bone mass, or have additional risk factors.
--- NOTE | ~2022-11-01 | MM_ITS ---
EXAMINATION: MM SCREENING DIGITAL BREAST TOMOSYNTHESIS, BILATERAL CLINICAL INFORMATION: Screening. Asymptomatic. COMPARISON: Mammography: This study is compared with prior exams dating back to 2016. TECHNIQUE: Digital breast tomosynthesis is performed in both the craniocaudal and mediolateral oblique views along with computer-aided detection (CAD). Synthesized 2D images are generated from the tomosynthesis. FINDINGS: There are scattered areas of fibroglandular density (ACR BI-RADS breast composition Category b). There are faint calcifications in the upper outer and upper inner quadrants of the left breast at a middle depth. Additional mammographic imaging magnification is advised. In the right breast, there are no significant masses, abnormal calcifications, or other abnormalities. MM/MM tomosynthesis screening BI IMPRESSION: Calcifications of the left breast warrant additional mammographic imaging magnification. No mammographic signs of malignancy right breast. ASSESSMENT: BI-RADS BI-RADS 0 - Incomplete: Needs additional Imaging. RECOMMENDATION: 1. Additional views of the left breast. 2. Radiology department staff will contact the patient for additional imaging. Additional Imaging required This examination should not preclude the clinical evaluation of a suspicious palpable abnormality. This patient's information was entered into a reminder system with a target due date for their next mammogram.
== END 2022-11-01 08:17 | disposition home or self-care (01) ==
LOC: HO.MAMMO 08:16
PROVIDERS: PCP Internal Medicine; Visit Provider Internal Medicine
DX: Z12.31 Encounter for screening mammogram for malignant neoplasm of breast (principal); Z13.820 Encounter for screening for osteoporosis; Z78.0 Asymptomatic menopausal state; S32.010A Wedge compression fracture of first lumbar vertebra, initial encounter for closed fracture
CPT/HCPCS: 77063; 77067; 77080

== ENCOUNTER → 2022-11-01 08:30 | Outpatient (BNV) | payer OTHER, SELFPAY | PROVIDERS: PCP Internal Medicine; Visit Provider Radiology Diagnostic Radiology | DX: Z12.31 Encounter for screening mammogram for malignant neoplasm of breast (principal) | CPT/HCPCS: 77063; 77067 ==

== ENCOUNTER 2022-11-05 06:04 | Inpatient (IN) | payer OTHER, SELFPAY ==
[2022-11-05] MEDS: LORazepam 2 MG/ML VIAL IM (06:36)
[2022-11-05] MEDS: Haloperidol Lactate 5 MG/ML VIAL IM (06:36)
[2022-11-05] MEDS: diphenhydrAMINE HCL 50 MG/ML VIAL 25 MG IM (06:36)
--- NOTE | 2022-11-05 06:36 | ED_ITS ---
HPI - Psych General Stated Complaint: Behavioral episode Time Seen by Provider: 11/05/22 06:25 Source: patient, EMS and old records reviewed Mode of arrival: EMS Limitations: other (hyperverbal, manic) History of Present Illness HPI Narrative: 62 yo female with PMH of HLD, insomnia, bipolar, non-epileptic seizures reportedly not on her medications but I am not sure for how long - manic, agitated, not sleeping and pressured rapid speech. S12 from community was trying to leave her home. She repeatedly states I need to sleep forever complaint: other (agitation, anxiety, manic, insomnia) Onset (ago): unknown Duration: getting worse History of same: Yes Relieving factors: none Exacerbating factors: other (not taking her medications) Context: not taking psychiatric medications Associated psychiatric symptoms: racing thoughts and delusions Associated symptoms: denies other symptoms Treatments prior to arrival: placed on mental health hold Related Data Home Medications Medication Instructions Recorded Confirmed carvedilol 12.5 mg tablet 12.5 mg PO Q12H 10/26/22 10/26/22 melatonin 3 mg tablet 9 mg PO BEDTIME 10/26/22 10/26/22 zolpidem 10 mg tablet 10 mg PO BEDTIME 10/26/22 10/26/22 Allergies Allergy/AdvReac Type Severity Reaction Status Date / Time olanzapine AdvReac Severe visual Verified 10/30/22 08:00 changes Review of Systems Review of Systems: ROS unable to be obtained due to agitation PMFSH Past Medical History Source: old records reviewed Medical History Tinea unguium History of psychogenic nonepileptic seizure Impaired fasting glucose Dyslipidemia (high LDL; low HDL) Hx of suicide attempt On beta baldemar at home Arthritis Anxiety Diastasis recti Umbilical hernia Compression fracture of L1 lumbar vertebra Dupuytren's contracture of left hand Lumbar disc herniation Essential hypertension Ventral hernia Urinary incontinence PTSD (post-traumatic stress disorder) Bipolar 2 disorder Surgical History H/O shoulder surgery Hx of elbow surgery Hx of repair of left rotator cuff Hx of colonoscopy History of lumbar fusion Family History Family History Father Diabetes mellitus Mother COPD (chronic obstructive pulmonary disease) Sister Diabetes mellitus Glaucoma Other Mental health disorder Substance use disorder Social History Social History Housing: House Are you a primary healthcare account manager to a significant other at home: No Alcohol intake: current Alcohol intake frequency: holidays/special occasions only Patient Tobacco Use Status: Former Tobacco user Quit Date: 16 yrs prior Tobacco use type: Cigarette Cigarette Packs Per Day: 1 Cigarettes Per Day: 20.0 e-Cigarette/Vaping Use: Never Used Substance Use Type: Marijuana service: No Current occupational status: disabled Cognitive needs: No Hearing needs: No Vision needs: No Physical Exam Vital Signs: Appearance: Alert. Oriented X3. agitated, pressured speech, hyperverbal, repeatedly fixated on sleeping forever, pacing, disheveled, appears older than stated age. Mild acute distress. Eyes: Pupils equal, round and reactive to light. ENT: Pharynx mildly dry MM. Atraumatic Neck: Normal inspection. Neck supple. CVS: Normal heart rate and rhythm. Pulses normal. Respiratory: No respiratory distress. Breath sounds normal. Abdomen: Soft and atraumatic Skin: Skin warm and dry. Normal skin color. Extremities: No lower extremity edema. Neuro: Oriented X 3. No motor deficit. No sensory deficit. CN2-12 intact, steady gait Course Course Course Narrative: signed out to oncoming provider pending reassessment and CARE team input. Medical Decision Making Medical Decision Making [facility] Narrative: 62 yo female with PMH of HLD, insomnia, bipolar, non-epileptic seizures here with pressured speech, agitation, pacing, not taking her medications refusing to take oral medications yelling at staff and being accusatory at this time she is requesting IM medications for behavioral control will provide IM ativan/haldol/benadryl. Labs and EKG ordered. She is on S12 and CARE team consult ordered. No signs of trauma. Hx of same in past. Differential Diagnosis Differential Diagnoses: The differential diagnosis associated with the presentation includes med noncompliance, bipolar, lyte abnormality Admission/Observation Consideration of admission/observation: Escalation of care including admission/observation considered observe until CARE team assesses patient Consult Healthcare Provider Management of the patient was discussed with: Behavioral Health Provider Lab Data [facility] Lab Attestation statement: I reviewed the patient's lab results. Independent Historian Clinical information obtained from an independent historian. History obtained from or confirmed by: EMS External Record Review External record reviewed: Inpatient record and Prior outpatient labs Social Determinants Patient?s care significantly limited by Social Determinants of Health including: Problems related to primary support group and Other Social Determinant of Health (noncompliance with therapy) Discharge Plan Discharge Clinical Impression: Bipolar 2 disorder, Noncompliance with medication regimen Patient Disposition: Still a Patient Prescriptions: No Action carvedilol 12.5 mg tablet 12.5 mg PO Q12H melatonin 3 mg tablet 9 mg PO BEDTIME zolpidem 10 mg tablet 10 mg PO BEDTIME Interventions: [place]-Suicide Risk Severity Scale Last Done: 11/05/22 06:40
[2022-11-05 06:37] VITALS: BP 157/87; PULSE 97; RESP 18; TEMP 36.2; O2SAT 96; BMI 27.3
--- NOTE | 2022-11-05 06:48 | ECG_ITS ---
Test Reason : QTC INTERVAL Blood Pressure : / mmHG Vent. Rate : 076 BPM Atrial Rate : 076 BPM P-R Int : 146 ms QRS Dur : 084 ms QT Int : 418 ms P-R-T Axes : 050 025 030 degrees QTc Int : 470 ms Normal sinus rhythm Normal ECG When compared with ECG of 29-MAY-2021 16:57, ST no longer depressed in Anterior leads T wave inversion no longer evident in Anterolateral leads QT has lengthened Referred By: Otilia Forde Electronically Signed By:GILLES FLORES
--- NOTE | 2022-11-05 06:54 | MHC.EDTECH ---
t/w was able to collect urine sample from pt but when t/w approached the pt to draw blood and perform EKG, pt stated I don't need that shit, I need a sodium drip and a room with a monitor. RN made aware.
[2022-11-05 07:10] LABS: Amphetamine Screen Urine Not Detected (Not Detect); Appearance Urine Clear; Barbiturates, Urine Not Detected (Not Detect); Benzodiazepines Screen Urine Not Detected (Not Detect); Cannabinoid Screen Urine POSITIVE (Not Detect); Cocaine Screen Urine Not Detected (Not Detect); Color Urine Yellow; Fentanyl, urine Not Detected (Not Detect); Glucose Urine UA Negative (Negative); Leukocyte Esterase Urine Small (1+) (Negative); Nitrite Urine Negative (Negative); Opiate Screen Urine Not Detected (Not Detect); PH 5.5 (5.0-9.0); Phencyclidine Screen Urine Not Detected (Not Detect); Specific Gravity - Urine 1.025 (1.005-1.025); UMIC TRIGGER UACC YES; Urine Blood Negative (Negative); Urine Ketones 80 mg/dL (Negative); Urine Protein Trace mg/dL (Neg-Trace)
[2022-11-05 07:31] LABS: Bacteria Urine None Seen (None Seen); RBC Urine 0-2 /HPF (0-2); Squamous Epithelial Cell Urine 0-2 /HPF (0-2); UACC Culture Trigger YES; WBC Urine 0-5 /HPF (0-5)
--- NOTE | 2022-11-05 07:42 | PHA.MEDREC ---
Pharmacy Consult ? Medication Reconciliation Pharmacy has completed the medication reconciliation. Reviewed med rec done by nursing
[2022-11-05 09:24] LABS: MANUAL DIFF FLAG NO
[2022-11-05 09:27] LABS: Basophils Absolute Auto 0.1 X10*3/uL (0.0-0.2); Basophils Percent Auto 0.5 % (0-2); Eosinophils Percent Auto 0.4 % (0-4); Hematocrit 35.6 % (37.0-47.0); Imm Gran Abs Auto 0.03 X10*3/uL (0.00-0.03); Imm Gran Pct Auto 0.3 % (0.0-0.4); Lymphocytes Absolute Auto 2.4 X10*3/uL (1.2-4.9); Lymphocytes Percent Auto 25.3 % (20-40); Mean Corpuscular HGB Conc 33.7 g/dl (31.0-35.0); Mean Corpuscular Hemoglobin 29.9 pg (27.0-33.0); Mean Corpuscular Volume 88.6 fL (80.0-98.0); Mean Platelet Volume 9.7 fL (9.4-12.3); Monocytes Absolute Auto 0.6 X10*3/uL (0.1-1.2); Monocytes Percent Auto 5.9 % (2-11); Neutrophils Absolute Auto 6.4 x10*3/uL (2.0-8.3); Neutrophils Percent Auto 67.6 % (45-73); Platelet Count 269 X10*3/uL (160-400); Red Blood Count 4.02 X10*6/uL (4.20-5.50); Red Cell Distribution Width 13.2 % (11.0-16.0); White Blood Count 9.5 X10*3/uL (4.8-10.8)
[2022-11-05 09:43] VITALS: BP 98/55; PULSE 72; RESP 18; TEMP 36.3; O2SAT 98
[2022-11-05 10:22] LABS: Ethanol < 10 mg/dL
[2022-11-05 10:27] LABS: Alanine Aminotransferase 28 U/L (0-31); Albumin Level 4.1 g/dL (3.5-5.0); Alkaline Phosphatase 59 U/L (39-117); Anion Gap 21 (12-20); Aspartate Amino Transferase 34 U/L (5-31); Bilirubin Direct 0.2 mg/dL (0.0-0.5); Bilirubin Total 0.7 mg/dL (0.0-1.0); Blood Urea Nitrogen 34 mg/dL (9-16); Calcium 9.2 mg/dL (8.4-10.2); Carbon Dioxide 16 mmol/L (22-29); Chloride 100 mmol/L (96-108); Creatinine Clr Calc Pharmacy 41.2; Estimated Glomerular Filt Rate 46; Glucose Random 108 mg/dL (60-115); Lipase 31 U/L (8-78); Magnesium 2.1 mg/dL (1.6-2.6); Potassium 4.1 mmol/L (3.3-5.1); Sodium 133 mmol/L (135-145); Total Protein 6.8 g/dL (6.5-8.0)
[2022-11-05 14:40] LABS: COVID-19 Test Negative (Negative); IDNOW Serial# BCCEAD1C
--- NOTE | 2022-11-05 16:03 | PC.NURSE ---
Caryn was given IM medication when she arrived just before the start of this writers shift. When this resume writer arrived Caryn was still agitated and continuing to yell from her room. She was demanding a sodium drip and appeared very focused on medical condition sthat were not currently issues. After this Caryn fell asleep for a couple hours and when she awoke she reported she had an ultrasound as a outpatient for a tumor in my cervix . This resume writer called US and Caryn did have an 1130 appt. Security called and Caryn was transported to the procedure and back. Caryn was incontinent of feces on her return and did require some assistance in getting changed. Linens changed as well. Appetite fair for lunch. Caryn denies SI/HI/AVH. Staff will continue to monitor.
[2022-11-05 16:08] VITALS: RESP 16
[2022-11-05 20:20] LABS: Osmolality Urine 849 mosm/kg (373-1093)
[2022-11-05] MEDS: Melatonin 3 MG TABLET 9 MG PO (21:58)
[2022-11-05] MEDS: Zolpidem Tartrate 5 MG TABLET 10 MG PO (21:59)
[2022-11-05] MEDS: carvediloL 12.5 MG TABLET PO (22:00)
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
[2022-11-06 08:23] VITALS: BP 131/78; PULSE 84; RESP 16; TEMP 36.3; O2SAT 98
[2022-11-06] MEDS: carvediloL 12.5 MG TABLET PO ×2 (08:35→20:05)
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
[2022-11-06 10:50] LABS: Alanine Aminotransferase 30 U/L (0-31); Albumin Level 3.9 g/dL (3.5-5.0); Alkaline Phosphatase 61 U/L (39-117); Anion Gap 14 (12-20); Aspartate Amino Transferase 34 U/L (5-31); Bilirubin Total 0.5 mg/dL (0.0-1.0); Blood Urea Nitrogen 16 mg/dL (9-16); Calcium 9.3 mg/dL (8.4-10.2); Carbon Dioxide 22 mmol/L (22-29); Chloride 102 mmol/L (96-108); Cholesterol 183 mg/dL (<200); Creatinine Clr Calc Pharmacy 60.6; Estimated Glomerular Filt Rate > 60; Glucose Fasting 145 mg/dL (60-99); HDL Cholesterol 50 mg/dL (>40); LDL Cholesterol Calculated 113 mg/dL (<100); Potassium 3.7 mmol/L (3.3-5.1); Sodium 134 mmol/L (135-145); Total Protein 6.6 g/dL (6.5-8.0); Triglycerides 104 mg/dL (<150)
[2022-11-06 10:52] LABS: Estimated Average Glucose 103 mg/dL; Hemoglobin A1c % 5.2 % (<6.0)
[2022-11-06 11:02] LABS: Thyroid Stimulating Hormone 1.17 uIU/mL (0.32-4.0)
[2022-11-06 11:15] LABS: Folate 14.6 ng/mL (> or = 4.0); Vitamin B12 1183 pg/mL (200-900)
[2022-11-06 20:00] VITALS: BP 184/87; PULSE 90; TEMP 36.3
[2022-11-06] MEDS: Zolpidem Tartrate 5 MG TABLET 10 MG PO (20:00)
[2022-11-06] MEDS: Melatonin 3 MG TABLET 9 MG PO (20:04)
[2022-11-07] MEDS: traZODone HCL 50 MG TABLET PO (02:05)
[2022-11-07 06:00] VITALS: BP 168/91; PULSE 77
--- NOTE | 2022-11-07 06:29 | PC.NURSE ---
PT BP 168/91, requesting BP med Carvedilol now it is scheduled for 9am currently. MD Jimenez notified. PT BP on 2nd shift yesterday was documented as 184/87.
[2022-11-07 08:25] VITALS: BP 197/117; PULSE 82; RESP 16; TEMP 36.3; O2SAT 97
[2022-11-07] MEDS: carvediloL 12.5 MG TABLET PO ×2 (08:27→21:00)
[2022-11-07 09:39] VITALS: BP 135/78; PULSE 82
[2022-11-07] MEDS: Milk of Magnesia 30 ML ORAL.SUSP PO (11:56)
[2022-11-07] MEDS: Divalproex Sodium ER 500 MG TAB.ER.24H PO (11:57)
--- NOTE | 2022-11-07 15:31 | HO.PSYCHPN ---
Subjective Subjective Date of Service: 11/07/22 Reason For Visit: Behavioral episode Interim History: Met with patient; discussed with team Patient remains manic, verbose and with pressured, disorganized speech and behavior. Patient balancing from topic to topic, talking about how she prepares for her seizures and how to keep herself from hitting her head during a seizure (puts her hands over her head; demonstrates by shaking around and making focal noises); patient talked about the color of the wall, last everyone in the room to look her in the eye... Patient says she refused Zyprexa last night because she is allergic. However she very much wants life underwriter to help her with medication to get her to sleep; life underwriter discussed and patient agreed with starting Depakote Mental Status Exam Mental Status Exam Narrative: Pt is alert and oriented; behavior is disorganized; patient is not in distress; dressed in casual attire with unkempt hair but adequate hygiene; mood is described as smart and affect constricted; eye contact appropriate; Speech is pressured, verbose, rambling; no longer whispering and with normal volume; moderate psychomotor agitation present; thought process can be goal directed briefly but otherwise, disorganized, tangential; Thought content is on various things, seizure disorder, not sleeping, irritation her brother... denies any SI/HI. Patient seems internally preoccupied; Patients insight and judgment impaired Diagnostics Vital Signs (24Hr): Vital Signs - 24 hr 11/06/22 20:00 11/07/22 06:00 11/07/22 08:25 Temperature 97.3 F 97.4 F Pulse Rate 90 77 82 Respiratory Rate 16 Blood Pressure 184/87 H 168/91 H 197/117 H Pulse Oximetry 97 Oxygen Delivery Method Room Air 11/07/22 09:39 Temperature Pulse Rate 82 Respiratory Rate Blood Pressure 135/78 Pulse Oximetry Oxygen Delivery Method BMI result Body Mass Index 27.3 Labs 11/05/22 09:19 11/06/22 10:01 Labs: Laboratory Results - last 48 hr 11/05/22 11/06/22 06:47 10:01 Sodium 134 L Potassium 3.7 Chloride 102 Carbon Dioxide 22 Anion Gap 14 BUN 16 Creatinine 0.81 Estim Creat Clear Calc 60.6 Estimated GFR > 60 Fasting Glucose 145 H Estimat Average Glucose 103 Hemoglobin A1c % 5.2 Calcium 9.3 Total Bilirubin 0.5 AST 34 H ALT 30 Alkaline Phosphatase 61 Total Protein 6.6 Albumin 3.9 Triglycerides 104 Cholesterol 183 LDL Cholesterol, Calc 113 H HDL Cholesterol 50 Vitamin B12 1183 H Folate 14.6 TSH 1.17 Urine Osmolality 849 Ur Random Sodium 25.0 Medications Medications Current Medications Acetaminophen (Acetaminophen 325 Mg Tablet) 650 mg PO Q6H PRN PRN Reason: Headache/Pain Mild Scale (1-3) Al Hydroxide/Mg Hydroxide (Magnesium Hydrox/Alum Hydrox 30 Ml Oral.Susp) 30 ml PO Q6H PRN PRN Reason: Heartburn/Nausea Carvedilol (Carvedilol 12.5 Mg Tablet) 12.5 mg PO BID ADAN; Protocol Last Admin: 11/07/22 08:27 Dose: 12.5 mg Divalproex Sodium (Divalproex Sodium Er 500 Mg Tab.Er.24h) 500 mg PO BEDTIME ADAN Hydroxyzine HCl (Hydroxyzine Hcl 25 Mg Tablet) 25 mg PO Q6H PRN PRN Reason: Anxiety Magnesium Hydroxide (Milk Of Magnesia 30 Ml Oral.Susp) 30 ml PO DAILY PRN PRN Reason: Constipation Last Admin: 11/07/22 11:56 Dose: 30 ml Melatonin (Melatonin 3 Mg Tablet) 9 mg PO BEDTIME ADAN Last Admin: 11/06/22 20:04 Dose: 9 mg Trazodone HCl (Trazodone Hcl 50 Mg Tablet) 50 mg PO BEDTIME PRN PRN Reason: Insomnia Last Admin: 11/07/22 02:05 Dose: 50 mg Zolpidem Tartrate (Zolpidem Tartrate 5 Mg Tablet) 10 mg PO BEDTIME ADAN Last Admin: 11/06/22 20:00 Dose: 10 mg Allergies Allergies Allergy/AdvReac Type Severity Reaction Status Date / Time olanzapine AdvReac Severe visual Verified 10/30/22 08:00 changes Assessment & Plan Assessment & Plan (1) Bipolar I disorder: Status: Acute Code(s): F31.9 - Bipolar disorder, unspecified (2) History of psychogenic nonepileptic seizure: Status: Acute Code(s): Z87.898 - Personal history of other specified conditions (3) Essential hypertension: Status: Acute Code(s): I10 - Essential (primary) hypertension Plan HPI: Patient is a 62-year-old female with reported history of bipolar disorder, PtSD, who presents with manic episode after brother called 911 for disorganized behavior, running into the street, yelling in the neighborhood and the face of discontinuing her Zyprexa about 8 days ago. In the emergency room patient was hyperverbal, agitated and required IM medication. On admission, having a manic episode; she is a limited historian, with disorganized speech and behavior Hospital course: 11/07 patient remains manic, rambling, disorganized speech and behavior. However no longer whispering. Last night she refused Zyprexa however says she does want medication to help her sleep and agrees to try Depakote -Brother reports pt went to a neurologist who did infact tell her to stop Capylata, a little over a week ago saying she was dizzy, having seizures...; she took Zyprexa instead but stopped due to side-effect and she's been decompensating since. He reports she's very agitated, paranoid, verbally abusive, saying (but not doing) she will run outside naked... Plan: 3 day Q 15 minute checks START Depakote ER 1000mg daily (today, in divided doses) Discontinue Zyprexa patient refuses to take Continue carvedilol 12.5 mg b.i.d. for hypertension Continue zolpidem 10 mg q.h.s. for insomnia; patient takes at home Will try to obtain collateral Patient mildly hyponatremic; will repeat labs Patient educated on: diagnosis and medication risk/benefits Informed Consent: further education needed Reason for continued inpatient stay Substantial Risk for: inability to function Time Spent With Patient Time: Total time managing care of this patient today ____ minutes.
[2022-11-07 15:42] LABS: Anion Gap 16 (12-20); Carbon Dioxide 24 mmol/L (22-29); Chloride 103 mmol/L (96-108); Potassium 3.9 mmol/L (3.3-5.1); Sodium 139 mmol/L (135-145)
[2022-11-07 20:36] VITALS: BP 184/99; PULSE 76; RESP 18; TEMP 36.4; O2SAT 97
[2022-11-07] MEDS: Zolpidem Tartrate 5 MG TABLET 10 MG PO (21:00)
[2022-11-07] MEDS: Melatonin 3 MG TABLET 9 MG PO (21:01)
[2022-11-08] MEDS: hydrOXYzine HCL 25 MG TABLET PO (06:55)
[2022-11-08 08:00] VITALS: BP 172/106; PULSE 107; RESP 16; TEMP 36.3; O2SAT 96
[2022-11-08] MEDS: carvediloL 12.5 MG TABLET PO (08:09)
--- NOTE | 2022-11-08 08:45 | P.PNPSI_ITS ---
Subjective Subjective Date of Service: 11/08/22 Reason For Visit: Behavioral episode Interim History: Met?with?patient;?discussed?with?team last night, refused bedtime depakote, yelling, grabbing staff; up most of night, yelling at staff. This morning yelling, angry...took p.o.?meds however, Haldol, ativan and dpakote?and?slept?for?a?couple?hours.??Patient?much?more?calm?when?she?woke?up,? not?rambling?and?much?more?able?to?have?a?goal?oriented?conversation.??She ?she?agreed?to retracted?3?day?notice?and?stay?longer?to?continue?taking?medications?to?help?he r?sleep.??She?still? does?not?want?to?go?back?to?her?brother's?however?right?after?saying?that,?she?s aid?she?called?him?y esterday?and?was?initially?going?to?have?him?pick?her?up?to?[facility] Mental Status Exam Mental Status Exam Narrative: Pt is alert and oriented; behavior is disorganized; patient is not in distress; dressed in casual attire with unkempt hair but adequate hygiene; mood is described as ok and affect constricted; eye contact appropriate; Speech is pressured, verbose, rambling; no longer whispering and with normal volume; moderate psychomotor agitation present; thought process can be goal directed briefly but otherwise, disorganized, tangential; Thought content is on various things, seizure disorder, not sleeping, irritation her brother... denies any SI/HI. Patient seems internally preoccupied; Patients insight and judgment impaired Diagnostics Vital Signs (24Hr): Vital Signs - 24 hr 11/07/22 09:39 11/07/22 20:36 Temperature 97.5 F Pulse Rate 82 76 Respiratory Rate 18 Blood Pressure 135/78 184/99 H Pulse Oximetry 97 Oxygen Delivery Method Room Air BMI result Body Mass Index 27.3 Labs 11/05/22 09:19 11/07/22 15:02 Labs: Laboratory Results - last 48 hr 11/06/22 11/07/22 10:01 15:02 Sodium 134 L 139 Potassium 3.7 3.9 Chloride 102 103 Carbon Dioxide 22 24 Anion Gap 14 16 BUN 16 Creatinine 0.81 Estim Creat Clear Calc 60.6 Estimated GFR > 60 Fasting Glucose 145 H Estimat Average Glucose 103 Hemoglobin A1c % 5.2 Calcium 9.3 Total Bilirubin 0.5 AST 34 H ALT 30 Alkaline Phosphatase 61 Total Protein 6.6 Albumin 3.9 Triglycerides 104 Cholesterol 183 LDL Cholesterol, Calc 113 H HDL Cholesterol 50 Vitamin B12 1183 H Folate 14.6 TSH 1.17 Medications Medications Current Medications Acetaminophen (Acetaminophen 325 Mg Tablet) 650 mg PO Q6H PRN PRN Reason: Headache/Pain Mild Scale (1-3) Al Hydroxide/Mg Hydroxide (Magnesium Hydrox/Alum Hydrox 30 Ml Oral.Susp) 30 ml PO Q6H PRN PRN Reason: Heartburn/Nausea Carvedilol (Carvedilol 12.5 Mg Tablet) 12.5 mg PO BID ADAN; Protocol Last Admin: 11/08/22 08:09 Dose: 12.5 mg Divalproex Sodium (Divalproex Sodium Er 500 Mg Tab.Er.24h) 500 mg PO BEDTIME ADAN Last Admin: 11/07/22 21:06 Dose: Not Given Divalproex Sodium (Divalproex Sodium 250 Mg Tablet.Dr) 750 mg PO ONCE ONE Stop: 11/08/22 08:44 Hydroxyzine HCl (Hydroxyzine Hcl 25 Mg Tablet) 25 mg PO Q6H PRN PRN Reason: Anxiety Last Admin: 11/08/22 06:55 Dose: 25 mg Lorazepam (Lorazepam 1 Mg Tablet) 1 mg PO TID [facility] Magnesium Hydroxide (Milk Of Magnesia 30 Ml Oral.Susp) 30 ml PO DAILY PRN PRN Reason: Constipation Last Admin: 11/07/22 11:56 Dose: 30 ml Melatonin (Melatonin 3 Mg Tablet) 9 mg PO BEDTIME ADAN Last Admin: 11/07/22 21:01 Dose: 9 mg Trazodone HCl (Trazodone Hcl 50 Mg Tablet) 50 mg PO BEDTIME PRN PRN Reason: Insomnia Last Admin: 11/07/22 02:05 Dose: 50 mg Zolpidem Tartrate (Zolpidem Tartrate 5 Mg Tablet) 10 mg PO BEDTIME ADAN Last Admin: 11/07/22 21:00 Dose: 10 mg Allergies Allergies Allergy/AdvReac Type Severity Reaction Status Date / Time olanzapine AdvReac Severe visual Verified 10/30/22 08:00 changes Assessment & Plan Assessment & Plan (1) Bipolar I disorder: Status: Acute Code(s): F31.9 - Bipolar disorder, unspecified (2) History of psychogenic nonepileptic seizure: Status: Acute Code(s): Z87.898 - Personal history of other specified conditions (3) Essential hypertension: Status: Acute Code(s): I10 - Essential (primary) hypertension Plan HPI: Patient is a 62-year-old female with reported history of bipolar disorder, PtSD, who presents with manic episode after brother called 911 for disorganized behavior, running into the street, yelling in the neighborhood and the face of discontinuing her Zyprexa about 8 days ago. In the emergency room patient was hyperverbal, agitated and required IM medication. On admission, having a manic episode; she is a limited historian, with disorganized speech and behavior Hospital course: 11/07 patient remains manic, rambling, disorganized speech and behavior. However no longer whispering. Last night she refused Zyprexa however says she does want medication to help her sleep and agrees to try Depakote -Brother reports pt went to a neurologist who did infact tell her to stop Capylata, a little over a week ago saying she was dizzy, having seizures...; she took Zyprexa instead but stopped due to side-effect and she's been decompensating since. He reports she's very agitated, paranoid, verbally abusive, saying (but not doing) she will run outside naked... 11 08?patient?agitated?all?last?night,?refused?Zyprexa?last?night;?grabbing?staff?a nd?difficult?to?redirect;?again?agitated?this?morning?and? took?Haldol,?Depakote?and?Ativan?and?was?able?to?sleep; afterwards more calm and organized.??Patient?retracted?her?3?day?notice?and?agrees?to?stay?for?more?Depak ote Plan: CV (retracted?3?day) Q 15 minute checks START Depakote ER 750mg daily (got depakote IR 500mg today Discontinue Zyprexa patient refuses to take Continue carvedilol 12.5 mg b.i.d. for hypertension Continue zolpidem 10 mg q.h.s. for insomnia; patient takes at home Will try to obtain collateral Patient mildly hyponatremic; will repeat labs Patient educated on: diagnosis and medication risk/benefits Informed Consent: understands, does not understand and further education needed Reason for continued inpatient stay Substantial Risk for: inability to function Time Spent With Patient Time: Total time managing care of this patient today ____ minutes.
[2022-11-08] MEDS: LORazepam 1 MG TABLET 2 MG PO (09:08)
[2022-11-08] MEDS: HaloperidoL 5 MG TABLET PO (09:08)
[2022-11-08] MEDS: Divalproex Sodium 500 MG TABLET.DR PO (09:08)
[2022-11-08 12:20] VITALS: BP 92/67; PULSE 87
[2022-11-08] MEDS: Melatonin 3 MG TABLET 9 MG PO (20:59)
[2022-11-08 21:00] VITALS: BP 92/54; PULSE 84; TEMP 36.4
[2022-11-08] MEDS: Zolpidem Tartrate 5 MG TABLET 10 MG PO (21:00)
[2022-11-09 06:00] VITALS: BP 138/72; PULSE 88; RESP 18; TEMP 36.7; O2SAT 98
[2022-11-09] MEDS: Divalproex Sodium ER 250 MG TAB.ER.24H 750 MG PO (07:56)
[2022-11-09] MEDS: carvediloL 12.5 MG TABLET PO ×2 (07:56→21:20)
--- NOTE | 2022-11-09 09:36 | P.PNPSI_ITS ---
Subjective Subjective Date of Service: 11/09/22 Reason For Visit: Behavioral episode Interim History: met with patient; discussed with team P atient?slept?last?night.??This?morning?took?Depakote.??Patient?definitely?more?c jenna.??Still?odd,?still?rambling? a nd?tangential.??Patient?is?still?telling?people?to?stare?at?her?in?the?eye?when? talking.??However?she?had?a?visit With?her?brother?today?which?she?said was ?good...??Very?civil and?that?she?would?be?fine?going?back?to?live?with?him?as?long?as?he?does?not?ye ll?at?her.??She?agrees?to?continue?taking?Depakote Patient's?brother?explained?recent?history?in?further?detail.??Said?that?for?yea rs?she?had?been?stab le?on?Zyprexa.??Recently?she?said?she?wanted?to?stop?taking?it?because?it?was?ca using?weight?gain;?was?started?on?kept?light?a?but?had?urinary?retention. N eurologist?told?her?to?stop?it?but?by?then?she?was?already?starting?to?become?ma tatiana,?having?pseudose izures,?irritable,?not?sleeping?for?days.??Her?brother?tried?to?get?her?to?take? Zyprexa?again?but?she?refused. Mental Status Exam Mental Status Exam Narrative: Pt is alert and oriented; behavior is calm?and?more?organized; patient is not in distress; dressed in casual attire with unkempt hair but adequate hygiene; mood is described as ok and affect constricted; eye contact appropriate; Speech is pressured, verbose, rambling; normal volume; still?moderate psychomotor agitation present; thought process can be goal directed briefly but otherwise, jumping?from?topic?to?topic,?tangential; Thought content is on various things, returning?to?her?brother's;?denies any SI/HI. Patient seems internally preoccupied; Patients insight and judgment impaired?but?improving?a?little Diagnostics Vital Signs (24Hr): Vital Signs - 24 hr 11/08/22 12:20 11/08/22 21:00 11/09/22 06:00 Temperature 97.6 F 98.0 F Pulse Rate 87 84 88 Respiratory Rate 18 Blood Pressure 92/67 92/54 L 138/72 Pulse Oximetry 98 Oxygen Delivery Method Room Air BMI result Body Mass Index 27.3 Labs 11/05/22 09:19 11/07/22 15:02 Labs: Laboratory Results - last 48 hr 11/07/22 15:02 Sodium 139 Potassium 3.9 Chloride 103 Carbon Dioxide 24 Anion Gap 16 Medications Medications Current Medications Acetaminophen (Acetaminophen 325 Mg Tablet) 650 mg PO Q6H PRN PRN Reason: Headache/Pain Mild Scale (1-3) Al Hydroxide/Mg Hydroxide (Magnesium Hydrox/Alum Hydrox 30 Ml Oral.Susp) 30 ml PO Q6H PRN PRN Reason: Heartburn/Nausea Carvedilol (Carvedilol 12.5 Mg Tablet) 12.5 mg PO BID ADAN; Protocol Last Admin: 11/09/22 07:56 Dose: 12.5 mg Divalproex Sodium (Divalproex Sodium Er 250 Mg Tab.Er.24h) 750 mg PO DAILY ADAN Hydroxyzine HCl (Hydroxyzine Hcl 25 Mg Tablet) 25 mg PO Q6H PRN PRN Reason: Anxiety Last Admin: 11/08/22 06:55 Dose: 25 mg Lorazepam (Lorazepam 1 Mg Tablet) 1 mg PO TID PRN PRN Reason: agitation Magnesium Hydroxide (Milk Of Magnesia 30 Ml Oral.Susp) 30 ml PO DAILY PRN PRN Reason: Constipation Last Admin: 11/07/22 11:56 Dose: 30 ml Melatonin (Melatonin 3 Mg Tablet) 9 mg PO BEDTIME ADAN Last Admin: 11/08/22 20:59 Dose: 9 mg Trazodone HCl (Trazodone Hcl 50 Mg Tablet) 50 mg PO BEDTIME PRN PRN Reason: Insomnia Last Admin: 11/07/22 02:05 Dose: 50 mg Zolpidem Tartrate (Zolpidem Tartrate 5 Mg Tablet) 10 mg PO BEDTIME ADAN Last Admin: 11/08/22 21:00 Dose: 10 mg Allergies Allergies Allergy/AdvReac Type Severity Reaction Status Date / Time olanzapine AdvReac Severe visual Verified 10/30/22 08:00 changes Assessment & Plan Assessment & Plan (1) Bipolar I disorder: Status: Acute Code(s): F31.9 - Bipolar disorder, unspecified (2) History of psychogenic nonepileptic seizure: Status: Acute Code(s): Z87.898 - Personal history of other specified conditions (3) Essential hypertension: Status: Acute Code(s): I10 - Essential (primary) hypertension (4) PTSD (post-traumatic stress disorder): Status: Acute Code(s): F43.10 - Post-traumatic stress disorder, unspecified Plan HPI: Patient is a 62-year-old female with reported history of bipolar disorder, PtSD, who presents with manic episode after brother called 911 for disorganized behavior, running into the street, yelling in the neighborhood and the face of discontinuing her Zyprexa about 8 days ago. In the emergency room patient was hyperverbal, agitated and required IM medication. On admission, having a manic episode; she is a limited historian, with disorganized speech and behavior Hospital course: 11/07 patient remains manic, rambling, disorganized speech and behavior. However no longer whispering. Last night she refused Zyprexa however says she does want medication to help her sleep and agrees to try Depakote -Brother reports pt went to a neurologist who did infact tell her to stop Capylata, a little over a week ago saying she was dizzy, having seizures...; she took Zyprexa instead but stopped due to side-effect and she's been decompensating since. He reports she's very agitated, paranoid, verbally abusive, saying (but not doing) she will run outside naked... ?patient?agitated?all?last?night,?refused?Zyprexa?last?night;?grabbing?staff? and?difficult?to?redirect;?again?agitated?this?morning?and? took?Haldol,?Depakote?and?Ativan?and?was?able?to?sleep; afterwards more calm and organized.??Patient?retracted?her?3?day?notice?and?agrees?to?stay?for?more?Michael ote 11/09?patient?remains?manic?with?rambling,?pressured?speech,?tangential; no insight into bipolar disorder, but does want medication since helping her finally sleep; however, she is overall more?calm?and?did?sleep?last?night; will Continue?with?Depakote - leaving?Depakote?at?daytime?to?better?ensure?adherence;?will?consider?switching? to?q.h.s.?later?on once stable Plan: CV (retracted?3?day) Q 15 minute checks Continue?Depakote ER 750mg daily Ambien 10mg qhs Discontinue Zyprexa patient refuses to take Continue carvedilol 12.5 mg b.i.d. for hypertension Continue zolpidem 10 mg q.h.s. for insomnia; patient takes at home Will try to obtain collateral Patient mildly hyponatremic; will repeat labs Patient educated on: diagnosis and medication risk/benefits Informed Consent: understands, does not understand and further education needed Reason for continued inpatient stay Substantial Risk for: inability to function and rapid decompensation Time Spent With Patient Time: Total time managing care of this patient today ____ minutes.
[2022-11-09 18:00] VITALS: BP 171/95; PULSE 81; TEMP 36.7; O2SAT 99
[2022-11-09] MEDS: Melatonin 3 MG TABLET 9 MG PO (21:20)
[2022-11-09] MEDS: Zolpidem Tartrate 5 MG TABLET 10 MG PO (21:21)
[2022-11-10] MEDS: hydrOXYzine HCL 25 MG TABLET PO (06:00)
[2022-11-10 08:11] LABS: Ammonia 31 umol/L (13-55)
[2022-11-10 08:17] LABS: Alanine Aminotransferase 30 U/L (0-31); Albumin Level 4.2 g/dL (3.5-5.0); Alkaline Phosphatase 64 U/L (39-117); Aspartate Amino Transferase 21 U/L (5-31); Bilirubin Direct 0.1 mg/dL (0.0-0.5); Bilirubin Total 0.5 mg/dL (0.0-1.0); Total Protein 7.1 g/dL (6.5-8.0)
[2022-11-10 08:20] VITALS: BP 152/82; PULSE 102; RESP 18; TEMP 36.6; O2SAT 98
[2022-11-10] MEDS: Divalproex Sodium ER 250 MG TAB.ER.24H 750 MG PO (08:47)
[2022-11-10] MEDS: carvediloL 12.5 MG TABLET PO ×2 (08:48→20:59)
[2022-11-10] MEDS: LORazepam 1 MG TABLET PO (08:49)
[2022-11-10 09:08] LABS: Valproate 44.3 mcg/mL (50.0-100.0)
--- NOTE | 2022-11-10 11:42 | P.PNPSI_ITS ---
Subjective Subjective Date of Service: 11/10/22 Reason For Visit: Behavioral episode Subjective Notes: Conditional Voluntary Interim History: Pt reports I feel happy go shanthi, I was up, up up all night, like the song! She reports not feeling tired not needing to sleep much. She continues to present as labile. She states she wants to go home soon. She denies SI/HI. Review of Systems Review of Systems ROS unable to be obtained due to agitation Mental Status Exam Mental Status Exam Narrative: Pt is alert and oriented; behavior is calm?and?more?organized; patient is not in distress; dressed in casual attire with unkempt hair but adequate hygiene; mood is described as happy- go- shanthi and affect labile; eye contact appropriate; Speech is pressured, verbose, rambling; normal volume; still?moderate psychomotor agitation present; thought process can be goal directed briefly but otherwise, jumping?from?topic?to?topic,?tangential; Thought content is on various things, returning?to?her?brother's;?denies any SI/HI. Patient seems internally preoccupied; Patients insight and judgment impaired?but?improving?a?little Diagnostics Vital Signs (24Hr): Vital Signs - 24 hr 11/09/22 18:00 11/10/22 08:20 Temperature 98.1 F 98 F Pulse Rate 81 102 H Respiratory Rate 18 Blood Pressure 171/95 H 152/82 H Pulse Oximetry 99 98 Oxygen Delivery Method Room Air Room Air BMI result Body Mass Index 27.3 Labs 11/05/22 09:19 11/07/22 15:02 Labs: Laboratory Results - last 48 hr 11/10/22 07:35 Total Bilirubin 0.5 Direct Bilirubin 0.1 AST 21 ALT 30 Alkaline Phosphatase 64 Ammonia 31 Total Protein 7.1 Albumin 4.2 Valproic Acid 44.3 L Medications Medications Current Medications Acetaminophen (Acetaminophen 325 Mg Tablet) 650 mg PO Q6H PRN PRN Reason: Headache/Pain Mild Scale (1-3) Al Hydroxide/Mg Hydroxide (Magnesium Hydrox/Alum Hydrox 30 Ml Oral.Susp) 30 ml PO Q6H PRN PRN Reason: Heartburn/Nausea Carvedilol (Carvedilol 12.5 Mg Tablet) 12.5 mg PO BID [facility]; Protocol Last Admin: 11/10/22 08:48 Dose: 12.5 mg Divalproex Sodium (Divalproex Sodium Er 250 Mg Tab.Er.24h) 750 mg PO DAILY ADAN Last Admin: 11/10/22 08:47 Dose: 750 mg Hydroxyzine HCl (Hydroxyzine Hcl 25 Mg Tablet) 25 mg PO Q6H PRN PRN Reason: Anxiety Last Admin: 11/10/22 06:00 Dose: 25 mg Lorazepam (Lorazepam 1 Mg Tablet) 1 mg PO TID PRN PRN Reason: agitation Last Admin: 11/10/22 08:49 Dose: 1 mg Magnesium Hydroxide (Milk Of Magnesia 30 Ml Oral.Susp) 30 ml PO DAILY PRN PRN Reason: Constipation Last Admin: 11/07/22 11:56 Dose: 30 ml Melatonin (Melatonin 3 Mg Tablet) 9 mg PO BEDTIME ADAN Last Admin: 11/09/22 21:20 Dose: 9 mg Trazodone HCl (Trazodone Hcl 50 Mg Tablet) 50 mg PO BEDTIME PRN PRN Reason: Insomnia Last Admin: 11/07/22 02:05 Dose: 50 mg Zolpidem Tartrate (Zolpidem Tartrate 5 Mg Tablet) 10 mg PO BEDTIME ADAN Last Admin: 11/09/22 21:21 Dose: 10 mg Allergies Allergies Allergy/AdvReac Type Severity Reaction Status Date / Time olanzapine AdvReac Severe visual Verified 10/30/22 08:00 changes Assessment & Plan Assessment & Plan (1) Bipolar I disorder: Status: Acute Code(s): F31.9 - Bipolar disorder, unspecified (2) History of psychogenic nonepileptic seizure: Status: Acute Code(s): Z87.898 - Personal history of other specified conditions (3) Essential hypertension: Status: Acute Code(s): I10 - Essential (primary) hypertension (4) PTSD (post-traumatic stress disorder): Status: Acute Code(s): F43.10 - Post-traumatic stress disorder, unspecified Plan HPI: Patient is a 62-year-old female with reported history of bipolar disorder, PtSD, who presents with manic episode after brother called 911 for disorganized behavior, running into the street, yelling in the neighborhood and the face of discontinuing her Zyprexa about 8 days ago. In the emergency room patient was hyperverbal, agitated and required IM medication. On admission, having a manic episode; she is a limited historian, with disorganized speech and behavior Hospital course: 11/07 patient remains manic, rambling, disorganized speech and behavior. However no longer whispering. Last night she refused Zyprexa however says she does want medication to help her sleep and agrees to try Depakote -Brother reports pt went to a neurologist who did infact tell her to stop Capylata, a little over a week ago saying she was dizzy, having seizures...; she took Zyprexa instead but stopped due to side-effect and she's been decompensating since. He reports she's very agitated, paranoid, verbally abusive, saying (but not doing) she will run outside naked... ?patient?agitated?all?last?night,?refused?Zyprexa?last?night;?grabbing?staff? and?difficult?to?redirect;?again?agitated?this?morning?and? took?Haldol,?Depakote?and?Ativan?and?was?able?to?sleep; afterwards more calm and organized.??Patient?retracted?her?3?day?notice?and?agrees?to?stay?for?more?Depak ote 11/09?patient?remains?manic?with?rambling,?pressured?speech,?tangential; no insight into bipolar disorder, but does want medication since helping her finally sleep; however, she is overall more?calm?and?did?sleep?last?night; will Continue?with?Depakote - leaving?Depakote?at?daytime?to?better?ensure?adherence;?will?consider?switching? to?q.h.s.?later?on once stable 11/10 continue current tx. Plan: CV (retracted?3?day) Q 15 minute checks Continue?Depakote ER 750mg daily Ambien 10mg qhs Discontinue Zyprexa patient refuses to take Continue carvedilol 12.5 mg b.i.d. for hypertension Continue zolpidem 10 mg q.h.s. for insomnia; patient takes at home Will try to obtain collateral Patient mildly hyponatremic; will repeat labs Reason for continued inpatient stay Substantial Risk for: inability to function Time Spent With Patient Time: Total time managing care of this patient today ____ minutes.
[2022-11-10 20:45] VITALS: BP 177/88; PULSE 83; TEMP 35.8
[2022-11-10] MEDS: Zolpidem Tartrate 5 MG TABLET 10 MG PO (20:59)
[2022-11-10] MEDS: Melatonin 3 MG TABLET 9 MG PO (21:00)
[2022-11-11 08:00] VITALS: BP 162/91; PULSE 74; RESP 18; TEMP 36.2; O2SAT 98
[2022-11-11] MEDS: Divalproex Sodium ER 250 MG TAB.ER.24H 750 MG PO (09:35)
[2022-11-11] MEDS: carvediloL 12.5 MG TABLET PO ×2 (09:35→20:58)
[2022-11-11 11:11] LABS: Valproate 56.7 mcg/mL (50.0-100.0)
[2022-11-11 11:15] LABS: Alanine Aminotransferase 27 U/L (0-31); Albumin Level 4.1 g/dL (3.5-5.0); Alkaline Phosphatase 58 U/L (39-117); Aspartate Amino Transferase 22 U/L (5-31); Bilirubin Direct 0.2 mg/dL (0.0-0.5); Bilirubin Total 0.5 mg/dL (0.0-1.0); Total Protein 6.9 g/dL (6.5-8.0)
[2022-11-11 12:18] LABS: Ammonia 93 umol/L (13-55)
[2022-11-11 18:00] VITALS: BP 178/98; PULSE 105; RESP 16; TEMP 36.6; O2SAT 97
--- NOTE | 2022-11-11 19:19 | HO.PSYCHPN ---
Subjective Subjective Date of Service: 11/11/22 Reason For Visit: Behavioral episode Subjective Notes: Conditional Voluntary Interim History: Pt more irritable today, accusing peers and staff of abuse. She reports she is suing everyone. She reports she does not need to be here. She continues to present as labile. She states she wants to go home soon. She denies SI/HI. Review of Systems Review of Systems ROS unable to be obtained due to agitation Mental Status Exam Mental Status Exam Narrative: Pt is alert and oriented; behavior is calm?and?more?organized; patient is not in distress; dressed in casual attire with unkempt hair but adequate hygiene; mood is described as happy- go- shanthi and affect labile; eye contact appropriate; Speech is pressured, verbose, rambling; normal volume; still?moderate psychomotor agitation present; thought process can be goal directed briefly but otherwise, jumping?from?topic?to?topic,?tangential; Thought content is on various things, returning?to?her?brother's;?denies any SI/HI. Patient seems internally preoccupied; Patients insight and judgment impaired?but?improving?a?little Diagnostics Vital Signs (24Hr): Vital Signs - 24 hr 11/10/22 20:45 11/11/22 08:00 Temperature 96.4 F L 97.1 F Pulse Rate 83 74 Respiratory Rate 18 Blood Pressure 177/88 H 162/91 H Pulse Oximetry 98 Oxygen Delivery Method Room Air BMI result Body Mass Index 27.3 Labs 11/05/22 09:19 11/07/22 15:02 Labs: Laboratory Results - last 48 hr 11/10/22 11/11/22 07:35 07:12 Total Bilirubin 0.5 0.5 Direct Bilirubin 0.1 0.2 AST 21 22 ALT 30 27 Alkaline Phosphatase 64 58 Ammonia 31 93 H Total Protein 7.1 6.9 Albumin 4.2 4.1 Valproic Acid 44.3 L 56.7 Medications Medications Current Medications Acetaminophen (Acetaminophen 325 Mg Tablet) 650 mg PO Q6H PRN PRN Reason: Headache/Pain Mild Scale (1-3) Al Hydroxide/Mg Hydroxide (Magnesium Hydrox/Alum Hydrox 30 Ml Oral.Susp) 30 ml PO Q6H PRN PRN Reason: Heartburn/Nausea Carvedilol (Carvedilol 12.5 Mg Tablet) 12.5 mg PO BID ADAN; Protocol Last Admin: 11/11/22 09:35 Dose: 12.5 mg Divalproex Sodium (Divalproex Sodium Er 250 Mg Tab.Er.24h) 750 mg PO DAILY [facility] Last Admin: 11/11/22 09:35 Dose: 750 mg Hydroxyzine HCl (Hydroxyzine Hcl 25 Mg Tablet) 25 mg PO Q6H PRN PRN Reason: Anxiety Last Admin: 11/10/22 06:00 Dose: 25 mg Lorazepam (Lorazepam 1 Mg Tablet) 1 mg PO TID PRN PRN Reason: agitation Last Admin: 11/10/22 08:49 Dose: 1 mg Magnesium Hydroxide (Milk Of Magnesia 30 Ml Oral.Susp) 30 ml PO DAILY PRN PRN Reason: Constipation Last Admin: 11/07/22 11:56 Dose: 30 ml Melatonin (Melatonin 3 Mg Tablet) 9 mg PO BEDTIME ADAN Last Admin: 11/10/22 21:00 Dose: 9 mg Trazodone HCl (Trazodone Hcl 50 Mg Tablet) 50 mg PO BEDTIME PRN PRN Reason: Insomnia Last Admin: 11/07/22 02:05 Dose: 50 mg Allergies Allergies Allergy/AdvReac Type Severity Reaction Status Date / Time olanzapine AdvReac Severe visual Verified 10/30/22 08:00 changes Assessment & Plan Assessment & Plan (1) Bipolar I disorder: Status: Acute Code(s): F31.9 - Bipolar disorder, unspecified (2) History of psychogenic nonepileptic seizure: Status: Acute Code(s): Z87.898 - Personal history of other specified conditions (3) Essential hypertension: Status: Acute Code(s): I10 - Essential (primary) hypertension (4) PTSD (post-traumatic stress disorder): Status: Acute Code(s): F43.10 - Post-traumatic stress disorder, unspecified Plan HPI: Patient is a 62-year-old female with reported history of bipolar disorder, PtSD, who presents with manic episode after brother called 911 for disorganized behavior, running into the street, yelling in the neighborhood and the face of discontinuing her Zyprexa about 8 days ago. In the emergency room patient was hyperverbal, agitated and required IM medication. On admission, having a manic episode; she is a limited historian, with disorganized speech and behavior Hospital course: 11/07 patient remains manic, rambling, disorganized speech and behavior. However no longer whispering. Last night she refused Zyprexa however says she does want medication to help her sleep and agrees to try Depakote -Brother reports pt went to a neurologist who did infact tell her to stop Capylata, a little over a week ago saying she was dizzy, having seizures...; she took Zyprexa instead but stopped due to side-effect and she's been decompensating since. He reports she's very agitated, paranoid, verbally abusive, saying (but not doing) she will run outside naked... 11/08?patient?agitated?all?last?night,?refused?Zyprexa?last?night;?grabbing?staff?and?difficult?to?redirect;?again?agitated?this?morning?and? took?Haldol,?Depakote?and?Ativan?and?was?able?to?sleep; afterwards more calm and organized.??Patient?retracted?her?3?day?notice?and?agrees?to?stay?for?more?Depakote 11/09?patient?remains?manic?with?rambling,?pressured?speech,?tangential; no insight into bipolar disorder, but does want medication since helping her finally sleep; however, she is overall more?calm?and?did?sleep?last?night; will Continue?with?Depakote -leaving?Depakote?at?daytime?to?better?ensure?adherence;?will?consider?switching?to?q.h.s.?later?on once stable 11/10 continue current tx. 11/11 continue tx. Plan: CV (retracted?3?day) Q 15 minute checks Continue?Depakote ER 750mg daily Ambien 10mg qhs Discontinue Zyprexa patient refuses to take Continue carvedilol 12.5 mg b.i.d. for hypertension Continue zolpidem 10 mg q.h.s. for insomnia; patient takes at home Will try to obtain collateral Patient mildly hyponatremic; will repeat labs Reason for continued inpatient stay Substantial Risk for: inability to function Time Spent With Patient Time: Total time managing care of this patient today ____ minutes.
[2022-11-11] MEDS: Melatonin 3 MG TABLET 9 MG PO (20:58)
[2022-11-11] MEDS: LORazepam 1 MG TABLET PO (22:38)
[2022-11-11] MEDS: Zolpidem Tartrate 5 MG TABLET PO (22:38)
--- NOTE | 2022-11-11 23:00 | PC.NURSE ---
PT was attempting to get the attention of a staff member whom was cleaning the kitchen. PT knows this staff member well. Instead of calling him by name, pt stated you, the dark one . PT was redirected and informed this behavior will not be tolerated.
--- NOTE | 2022-11-11 23:04 | PC.NURSE ---
At 1900, pt requested assistance from a staff member. Pt was redirected with regard to time as the staff member was performing safety checks. Pt appeared angry and stated, Fine, I don't want to talk to you anyway, since you won't help me because you're a marii!
[2022-11-12 08:00] VITALS: BP 168/87; PULSE 84; RESP 16; TEMP 36.1; O2SAT 99
[2022-11-12] MEDS: LORazepam 1 MG TABLET PO ×2 (08:15→21:08)
[2022-11-12] MEDS: carvediloL 12.5 MG TABLET PO ×2 (08:15→21:07)
[2022-11-12] MEDS: Divalproex Sodium ER 250 MG TAB.ER.24H 750 MG PO (08:15)
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
[2022-11-12] MEDS: Lithium Carbonate ER 300 MG TABLET.ER PO ×2 (11:52→21:07)
--- NOTE | 2022-11-12 13:57 | HE.PHANOTE ---
[facility] RECIEVED PATIENT OWN MEDICATION FOR CENTRUM MULTIVITAMIN. VERIFIED AND LABELED. SENT BACK UP TO FLOOR.
[2022-11-12 16:28] VITALS: BMI 26.0
[2022-11-12 18:00] VITALS: BP 116/73; PULSE 79; RESP 18; TEMP 36.6; O2SAT 99
[2022-11-12] MEDS: Melatonin 3 MG TABLET 9 MG PO (21:06)
[2022-11-12] MEDS: Zolpidem Tartrate 5 MG TABLET 10 MG PO (21:07)
[2022-11-13 08:00] VITALS: BP 102/64; PULSE 74; RESP 16; TEMP 36.4; O2SAT 99
[2022-11-13] MEDS: carvediloL 12.5 MG TABLET PO ×2 (08:30→21:13)
[2022-11-13] MEDS: LORazepam 1 MG TABLET PO (08:30)
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
[2022-11-13 18:00] VITALS: BP 130/77; PULSE 98; RESP 16; TEMP 35.9; O2SAT 100
[2022-11-13] MEDS: Melatonin 3 MG TABLET 9 MG PO (21:13)
[2022-11-13] MEDS: LORazepam 0.5 MG TABLET PO (21:14)
[2022-11-13] MEDS: Zolpidem Tartrate 5 MG TABLET 10 MG PO (21:14)
[2022-11-13] MEDS: Lithium Carbonate ER 300 MG TABLET.ER 600 MG PO (21:14)
[2022-11-14 06:00] VITALS: BP 126/60; PULSE 71; RESP 16; TEMP 36.2; O2SAT 100
[2022-11-14] MEDS: LORazepam 0.5 MG TABLET PO ×2 (08:57→14:20)
[2022-11-14] MEDS: carvediloL 12.5 MG TABLET PO ×2 (08:57→21:17)
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
[2022-11-14 11:13] LABS: Ammonia 27 umol/L (13-55)
[2022-11-14 21:10] VITALS: BP 157/80; PULSE 70; TEMP 36.4
[2022-11-14] MEDS: Melatonin 3 MG TABLET 9 MG PO (21:15)
[2022-11-14] MEDS: Zolpidem Tartrate 5 MG TABLET 10 MG PO (21:16)
[2022-11-15 07:00] VITALS: BMI 25.8
[2022-11-15 08:06] VITALS: BP 125/65; PULSE 74; RESP 16; TEMP 36.2; O2SAT 100
[2022-11-15] MEDS: carvediloL 12.5 MG TABLET PO ×2 (08:11→21:15)
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
--- NOTE | 2022-11-15 11:34 | PC.NURSE ---
Pt signed 3 day notice 11/15/22, will be up Monday 11/20 due to holiday on Saturday
[2022-11-15 18:00] VITALS: BP 183/107; PULSE 97; TEMP 36.5
[2022-11-15] MEDS: Melatonin 3 MG TABLET 9 MG PO (21:16)
[2022-11-15] MEDS: Zolpidem Tartrate 5 MG TABLET 10 MG PO (21:16)
[2022-11-16 08:00] VITALS: BP 187/118; PULSE 88; RESP 18; TEMP 36; O2SAT 97
[2022-11-16] MEDS: carvediloL 12.5 MG TABLET PO ×2 (08:16→20:23)
[2022-11-16 08:36] LABS: MANUAL DIFF FLAG NO
[2022-11-16 08:41] LABS: Basophils Percent Auto 0.4 % (0-2); Eosinophils Absolute Auto 0.1 X10*3/uL (0.0-0.4); Eosinophils Percent Auto 1.4 % (0-4); Hematocrit 39.1 % (37.0-47.0); Hemoglobin 13.2 g/dl (12.0-16.0); Imm Gran Abs Auto 0.03 X10*3/uL (0.00-0.03); Imm Gran Pct Auto 0.3 % (0.0-0.4); Lymphocytes Absolute Auto 2.1 X10*3/uL (1.2-4.9); Lymphocytes Percent Auto 22.4 % (20-40); Mean Corpuscular HGB Conc 33.8 g/dl (31.0-35.0); Mean Corpuscular Hemoglobin 29.8 pg (27.0-33.0); Mean Corpuscular Volume 88.3 fL (80.0-98.0); Mean Platelet Volume 10.8 fL (9.4-12.3); Monocytes Absolute Auto 0.6 X10*3/uL (0.1-1.2); Monocytes Percent Auto 6.8 % (2-11); Neutrophils Absolute Auto 6.3 x10*3/uL (2.0-8.3); Neutrophils Percent Auto 68.7 % (45-73); Platelet Count 313 X10*3/uL (160-400); Red Blood Count 4.43 X10*6/uL (4.20-5.50); Red Cell Distribution Width 13.1 % (11.0-16.0); White Blood Count 9.2 X10*3/uL (4.8-10.8)
[2022-11-16 09:10] LABS: Alanine Aminotransferase 24 U/L (0-31); Albumin Level 4.6 g/dL (3.5-5.0); Alkaline Phosphatase 65 U/L (39-117); Anion Gap 16 (12-20); Aspartate Amino Transferase 23 U/L (5-31); Bilirubin Total 0.4 mg/dL (0.0-1.0); Blood Urea Nitrogen 9 mg/dL (9-16); Calcium 9.9 mg/dL (8.4-10.2); Carbon Dioxide 22 mmol/L (22-29); Chloride 104 mmol/L (96-108); Creatinine Clr Calc Pharmacy 67.3; Estimated Glomerular Filt Rate > 60; Glucose Fasting 123 mg/dL (60-99); Sodium 138 mmol/L (135-145); Total Protein 7.8 g/dL (6.5-8.0)
[2022-11-16 09:25] LABS: TSH reflex Free T4 2.04 uIU/mL (0.32-4.0)
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
[2022-11-16 10:20] VITALS: BP 190/98
[2022-11-16 18:00] VITALS: BP 171/84; PULSE 100; RESP 16; TEMP 35.7; O2SAT 99
[2022-11-16] MEDS: Zolpidem Tartrate 5 MG TABLET 10 MG PO (20:22)
[2022-11-16] MEDS: Melatonin 3 MG TABLET 9 MG PO (20:22)
[2022-11-17 08:15] VITALS: BP 150/72; PULSE 92; RESP 16; TEMP 36.2; O2SAT 100
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
[2022-11-17 18:00] VITALS: BP 168/82; PULSE 93; RESP 16; TEMP 35.9; O2SAT 99
[2022-11-17] MEDS: Zolpidem Tartrate 5 MG TABLET 10 MG PO (20:27)
[2022-11-17] MEDS: Melatonin 3 MG TABLET 9 MG PO (20:27)
[2022-11-18] MEDS: Milk of Magnesia 30 ML ORAL.SUSP PO (06:24)
[2022-11-18 08:01] VITALS: BP 164/89; PULSE 73; RESP 16; TEMP 36.4; O2SAT 99
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
[2022-11-18] MEDS: Melatonin 3 MG TABLET 9 MG PO (19:17)
[2022-11-18] MEDS: Zolpidem Tartrate 5 MG TABLET 10 MG PO (19:18)
[2022-11-18 21:40] VITALS: BP 118/68; PULSE 74; RESP 16; TEMP 36.4; O2SAT 97
[2022-11-19 08:20] VITALS: BP 169/95; PULSE 72; RESP 16; TEMP 35.9; O2SAT 100
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
[2022-11-19 18:00] VITALS: BP 177/82; PULSE 102; RESP 18; O2SAT 97
[2022-11-19 20:57] VITALS: BP 158/89; PULSE 97
[2022-11-19] MEDS: Zolpidem Tartrate 5 MG TABLET 10 MG PO (20:59)
[2022-11-19] MEDS: Melatonin 3 MG TABLET 9 MG PO (20:59)
[2022-11-20 08:15] VITALS: BP 175/103; PULSE 79; RESP 16; TEMP 36.1; O2SAT 96
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
[2022-11-20 13:59] VITALS: BP 101/60; PULSE 82
[2022-11-20 18:48] LABS: MANUAL DIFF FLAG NO
[2022-11-20 18:51] LABS: Basophils Percent Auto 0.6 % (0-2); Eosinophils Absolute Auto 0.2 X10*3/uL (0.0-0.4); Eosinophils Percent Auto 2.8 % (0-4); Hematocrit 34.1 % (37.0-47.0); Hemoglobin 11.7 g/dl (12.0-16.0); Imm Gran Abs Auto 0.02 X10*3/uL (0.00-0.03); Imm Gran Pct Auto 0.3 % (0.0-0.4); Lymphocytes Percent Auto 41.6 % (20-40); Mean Corpuscular HGB Conc 34.3 g/dl (31.0-35.0); Mean Corpuscular Hemoglobin 29.9 pg (27.0-33.0); Mean Corpuscular Volume 87.2 fL (80.0-98.0); Monocytes Absolute Auto 0.5 X10*3/uL (0.1-1.2); Monocytes Percent Auto 6.5 % (2-11); Neutrophils Absolute Auto 3.5 x10*3/uL (2.0-8.3); Neutrophils Percent Auto 48.2 % (45-73); Platelet Count 284 X10*3/uL (160-400); Red Blood Count 3.91 X10*6/uL (4.20-5.50); Red Cell Distribution Width 13.2 % (11.0-16.0); White Blood Count 7.3 X10*3/uL (4.8-10.8)
[2022-11-20 19:08] LABS: Carbamazepine Tegretol 4.6 mcg/mL (5.0-12.0)
[2022-11-20 19:09] LABS: Alanine Aminotransferase 24 U/L (0-31); Albumin Level 3.9 g/dL (3.5-5.0); Alkaline Phosphatase 62 U/L (39-117); Aspartate Amino Transferase 20 U/L (5-31); Bilirubin Direct < 0.2 mg/dL (0.0-0.5); Bilirubin Total 0.2 mg/dL (0.0-1.0); Total Protein 6.5 g/dL (6.5-8.0)
[2022-11-20 21:15] VITALS: BP 115/55; PULSE 79; TEMP 36.9
[2022-11-20] MEDS: Zolpidem Tartrate 5 MG TABLET 10 MG PO (21:20)
[2022-11-21 06:00] VITALS: BP 138/82; PULSE 72; RESP 16; O2SAT 97
--- NOTE | 2022-11-21 11:56 | PM.PSYDC ---
DS: Providers Provider Date of Service: 11/21/22 Date of admission: 11/05/22 20:02 Date of discharge: 11/21/22 Primary care physician: Suzanna Cervantes MD Attending physician on admission: Prashant Hannah Attending physician on discharge: Prashant Hannah DS: Diagnosis Discharge Diagnosis (1) Bipolar I disorder: Status: Acute (2) History of psychogenic nonepileptic seizure: Status: Acute (3) Essential hypertension: Status: Acute (4) PTSD (post-traumatic stress disorder): Status: Acute DS: Medications Discharge Medications Home Medications: Home Medications Medication Instructions Recorded Confirmed melatonin 3 mg tablet 9 mg PO BEDTIME 10/26/22 11/05/22 Previous Rx's Medication Instructions Recorded Centrum 1 tab PO DAILY ##0 11/21/22 carbamazepine 400 mg 400 mg PO BID 30 days #60 tabs 11/21/22 tablet,extended release,12 hr carvedilol 12.5 mg tablet 12.5 mg PO Q12H 30 days #60 tabs 11/21/22 zolpidem 10 mg tablet 10 mg PO BEDTIME PRN insomnia 30 11/21/22 days #30 tabs Mental Status Exam Mental Status Exam Narrative: Pt is alert and oriented; behavior is hypomanic, but cooperative, more organized and calm; patient is not in distress; dressed in casual attire with unkempt hair but adequately groomed; mood is described as I want to go home affect less constricted, more calm; eye contact appropriate; Speech is verbose and mildly pressured but she is able to be interrupted and more organized, able to have more of a conversation; normal volume; mild, intermittent psychomotor agitation present; thought process is goal oriented and though she repeats herself, more organized and able to stay on topic; Thought content is on discharge, continuing treatment; somewhat on her brother and his problems; denies any SI/HI. Patient intermittently internally preoccupied, but much less so and only sometimes overheard self dialoguing; denies AVH. Patients insight and judgment impaired but improved and adequate Data Data Completed and Pending Completed studies during hospitalization [Text1]: 11/16/22 11/20/22 07:51 18:44 WBC 9.2 7.3 RBC 4.43 3.91 L Hgb 13.2 11.7 L Hct 39.1 34.1 L MCV 88.3 87.2 MCH 29.8 29.9 MCHC 33.8 34.3 RDW 13.1 13.2 Plt Count 313 284 MPV 10.8 10.0 Immature Gran % (Auto) 0.3 0.3 Neut % (Auto) 68.7 48.2 Lymph % (Auto) 22.4 41.6 H [place] % (Auto) 6.8 6.5 Eos % (Auto) 1.4 2.8 Baso % (Auto) 0.4 0.6 Lymph # (Auto) 2.1 3.0 [place] # (Auto) 0.6 0.5 Eos # (Auto) 0.1 0.2 Baso # (Auto) 0.0 0.0 Abs Immat Gran (auto) 0.03 0.02 Absolute Neuts (auto) 6.3 3.5 Absolute Nucleated RBC 0.000 0.000 Nucleated RBC % (auto) 0.0 0.0 Sodium 138 Potassium 4.0 Chloride 104 Carbon Dioxide 22 Anion Gap 16 BUN 9 Creatinine 0.71 Estim Creat Clear Calc 67.3 Estimated GFR > 60 Fasting Glucose 123 H Calcium 9.9 D Total Bilirubin 0.4 0.2 Direct Bilirubin < 0.2 AST 23 20 ALT 24 24 Alkaline Phosphatase 65 62 Total Protein 7.8 6.5 Albumin 4.6 3.9 TSH 2.04 Carbamazepine 4.6 L 11/05/22 09:26 Urine clean catch - Urine parker top Urine Culture - Final DS: Summary Hospital Course Hospital Course: HPI: Patient is a 62-year-old female with reported history of bipolar disorder, PtSD, who presents with manic episode after brother called 911 for disorganized behavior, running into the street, yelling in the neighborhood and the face of discontinuing her Zyprexa about 8 days ago. In the emergency room patient was hyperverbal, agitated and required IM medication. On admission, having a manic episode; she is a limited historian, with disorganized speech and behavior Hospital course: On admission patient was manic, rambling, disorganized speech and behavior. Patient provocative at times, posturing towards peers, once grabbed staff. She refused Zyprexa which had been helpful in the past since she says it causes blurry vision; however she reports she is desperate to sleep and agrees to try Depakote. On Depakote patient's mood started to become more stable, manic symptoms began to subside, she started sleeping (with Ativan) and became more organized in speech and behavior; she even retracted a 3 day notice for more treatment. Unfortunately she developed hyper-Ammoniemia and Depakote had to be discontinued and manic symptoms began to ramp up again, patient not sleeping, disorganized speech and behavior, rambling nonstop, angry and provocative. Patient agreed to try lithium which also started to help and patient's manic symptoms again began to subside; she also started sleeping at night. Despite continuing to improve, patient reported that she got blurry vision and felt dizzy from lithium and refused to take it. Patient's explanation was vague and it was unclear if she actually had symptoms or was worried she was having symptoms but either way she refused to take any more lithium. Patient again reverted back towards florid rj, agitated, paranoid, verbally abusive, not sleeping and disorganized speech and behavior. Patient vacillated back and forth between whether she had bipolar disorder, often agreeing that she did but unaware of her manic and problematic behaviors. Patient also frequently referenced her history of nonepileptic seizures. As rj continued, Patient was so desperate to sleep she did take some Zyprexa however she did not sleep much and refused to going forward. Eventually patient was willing to try Tegretol. Patient had placed a 3 day notice which was coming due and this time she refused to retract. However patient started taking Tegretol more consistently and again her manic symptoms began to reduce, she became more organized in speech and behavior and again had improved insight and judgment. Patient even was able to sleep. Labs revealed subtherapeutic Tegretol level and LFTs/CBC WNL and Tegretol was increased. Patient's 3 day notice came due. At this time patient does not rise to the level of involuntary commitment. Patient remains hypomanic but While procedure writer would like her to stay longer on the unit longer to monitor that manic symptoms continues to subside, patient is definitely improved since taking Tegretol which she reports tolerating well; her behavior and speech are more organized and she demonstrates improved insight/judgment saying she both needs and will continue taking Tegretol at home and that her brother will continue to manage her medications. She also agrees to follow-up with her outpatient provider and has no problem continuing to see her (something she was vehemently opposed earlier on admission). Auto Body Mechanic discussed case with her brother who agrees she is doing better and though understands patient remains hypomanic, is willing to give her a chance to see if she can tolerate being home, remain medication adherent and continue to improve. Earlier on in admission patient was provocative towards peers, sometimes posturing; these behaviors have resolved and she has not demonstrated any unsafe behaviors. Patient is returning home to her brother who is supportive, attends to her medications and gets her to her appointments. While she will likely intermittently continue to struggle with medication non-adherence and is at risk for worsening manic symptoms, patient is currently not in imminent risk for harm to self or others. Her request for discharge honored Auto Body Mechanic called patient's prescriber Yesika Doug and spoke with clinical senior care assistant and reported medication changes; left call back number in case Doug has follow-up questions. Lab work ordered which was discussed with Patient and her brother both agree for patient to get follow-up lab work next week Time spent discussing smoking cessation with patient: 3 to 10 minutes Status at Discharge Functional status at discharge: independent ambulation Overall status at discharge: patient is progressing back to baseline Time Spent with Patient Time attestation: Total time managing care of this patient today ____ minutes. Time spent: Greater than 30 minutes Discharge Plan Discharge Anticipated Discharge Date/Time: 11/21/22 14:00 Patient Disposition: Home, Self-Care Discharge Diagnosis: Bipolar I disorder, severe most recent episode manic in partial recovery Referrals: Yesika Camacho: psychiatry: [facility] [Other] - 12/11/22 1:30 pm (Hospital Discharge Appointment with Psychiatric medication provider Appointment is by telephone) [place]: [facility] - 1 Week (Hospital discharge appointment with therapist) Suzanna Cervantes MD [Primary Care Provider] - 1 Week Discharge Medications: New carbamazepine 400 mg tablet extended release 12 hr 400 mg PO BID 30 Days Qty: 60 0RF Centrum 1 tab PO DAILY Qty: 0 0RF Continued melatonin 3 mg tablet 9 mg PO BEDTIME carvedilol 12.5 mg tablet 12.5 mg PO Q12H 30 Days Qty: 60 0RF Changed zolpidem 10 mg tablet 10 mg PO BEDTIME PRN (Reason: insomnia) 30 Days Qty: 30 0RF Discontinued olanzapine 10 mg tablet 10 mg PO BEDTIME Discharge Orders: Discharge Order (Routine); Ordered 11/21/22 Ordered By: Prasahnt Hannah Diet: Regular diet Activity on Discharge: As tolerated Stand Alone Forms: Patient Portal Discharge page, Community Support Other Ambulatory Orders: Carbamazepine Tegretol (Routine) Timeframe: 20221126 Facility: [facility] - Location: Laboratory Ordered By: Prashant Hannah Complete Blood Count no Diff (Routine) Timeframe: 20221126 Facility: [facility] - Location: Laboratory Ordered By: Prashant Hannah Liver Panel (Routine) Timeframe: 20221126 Facility: [facility] - Location: Laboratory Ordered By: Prashant Hannah Care Plan Goals: Maintain mood and safe behaviors Take medications as prescribed Continue to pursue sobriety Practice coping skills Continue with outpatient providers and reach out to them as needed Health Concerns: Mood stability and behaviors Non-Epileptic Seizures Plan of Treatment: Follow up with your PCP, psychiatric provider and other outpatient providers regarding above concerns Take medications as prescribed Assessment: Risk assessment at time of discharge:? Patient was interviewed prior to discharge and found to be fully oriented and without any SI or HI. Patient has improved insight and judgment and wants to continue treatment. Patient is not in imminent risk of harm to self or others and has a safety plan that includes presenting to the closest ER or calling 911 if feeling unsafe.? Patient has been observed closely by nursing and unit staff; patient has not engaged in any behaviors that suggest dangerousness to self or others and has demonstrated appropriate behaviors and impulse control
== END 2022-11-21 14:00 | disposition home or self-care (01) | DRG 885 ==
LOC: HO.ED 07:41 → HO.PM5 20:14
PROVIDERS: Emergency Medicine; Admitting Provider Social Worker; Emergency Provider Emergency Medicine; PCP Internal Medicine; Visit Provider Psychiatry & Neurology Psychiatry
DX: F31.10 Bipolar disorder, current episode manic without psychotic features, unspecified (principal); F43.10 Post-traumatic stress disorder, unspecified; Z23 Encounter for immunization; Z20.822 Contact with and (suspected) exposure to COVID-19; Z91.199 Patient's noncompliance with other medical treatment and regimen due to unspecified reason; Z98.1 Arthrodesis status; Z87.891 Personal history of nicotine dependence; Z79.899 Other long term (current) drug therapy
CPT/HCPCS: 36415; 80048; 80051; 80053; 80061; 80076; 80156; 80164; 80307; 81001; 82140; 82607; 82746; 83036; 83690; 83735; 83935; 84300; 84443; 85025; 87086; 87635; 90686; 93005; 99285; J1200; J2060; J2359; S9485

== ENCOUNTER 2022-11-05 11:34 | Outpatient (REF) | payer OTHER, SELFPAY ==
--- NOTE | ~2022-11-05 | US_ITS ---
EXAMINATION: US PELVIS CLINICAL INFORMATION: Leiomyoma of uterus COMPARISON: None available. TECHNIQUE: Ultrasound of the pelvis is performed using both transabdominal and transvaginal transducers along with Doppler. Transvaginal imaging is performed due to inadequate visualization transabdominally. FINDINGS: Uterus: The uterus is anteverted and anteflexed measuring 8.1 x 2.2 x 3.9. 3.9 x 3.1 x 3.5 cm. uterine fibroid is identified, previous measurement was 4.6 x 3.2 x 3.9 cm. Endometrium measures 0.1 cm. Nonvisualization bilateral ovaries. No free fluid. US/US pelvic and transvaginal IMPRESSION: 3.9 cm uterine fibroid. Nonvisualization bilateral ovaries.
== END 2022-11-05 11:35 | disposition home or self-care (01) ==
LOC: HO.US 11:34
PROVIDERS: Visit Provider Advanced Practice Midwife
DX: D25.9 Leiomyoma of uterus, unspecified (principal)
CPT/HCPCS: 76830; 76856

== ENCOUNTER → 2022-11-05 20:02 | Outpatient (BNV) | payer OTHER, SELFPAY | PROVIDERS: Admitting Provider Social Worker; Emergency Provider Emergency Medicine; PCP Internal Medicine; Visit Provider Psychiatry & Neurology Psychiatry | DX: F31.13 Bipolar disorder, current episode manic without psychotic features, severe (principal); R56.9 Unspecified convulsions; F43.11 Post-traumatic stress disorder, acute; I10 Essential (primary) hypertension | CPT/HCPCS: 90792; 99231; 99232; 99239 ==

== ENCOUNTER 2022-12-06 11:32 | Outpatient (AMB) | payer OTHER, SELFPAY ==
--- NOTE | 2022-12-06 11:34 | MHC.OFFVIS ---
Intake Vital Signs 12/06/22 11:35 Height 5 ft 1 in Weight 133 lb BMI 25.1 BP 132/82 Intake Visit Reasons: 6 month ultrasound follow up Allergies olanzapine Adverse Reaction (Severe, Verified 12/06/22 11:36) visual changes HPI HPI Comments History of Present Illness Details Caryn is here today for a follow up on her fibroid. She denies any pelvic pain, pressure, urinary symptoms, reports pink discharge when wiping one episode. Is not sexually active. Denies itching or scratching. [facility] Medical History (Updated 12/06/22 @ 13:58 by Deepali Yoon CNM) Leiomyoma PTSD (post-traumatic stress disorder) Bipolar I disorder Tinea unguium History of psychogenic nonepileptic seizure Impaired fasting glucose Dyslipidemia (high LDL; low HDL) Hx of suicide attempt On beta baldemar at home Arthritis Anxiety Diastasis recti Umbilical hernia Compression fracture of L1 lumbar vertebra Dupuytren's contracture of left hand Lumbar disc herniation Essential hypertension Ventral hernia Urinary incontinence Surgical History H/O shoulder surgery Hx of elbow surgery Hx of repair of left rotator cuff Hx of colonoscopy History of lumbar fusion Family History Father Diabetes mellitus Mother COPD (chronic obstructive pulmonary disease) Sister Diabetes mellitus Glaucoma Other Mental health disorder Substance use disorder Social History Household Members: Other Household Members Other:: brother Housing: House Are you a primary regular senior care provider to a significant other at home: No Do you presently have visiting nurse or other home services: No (not currently) Alcohol intake: current Alcohol intake frequency: holidays/special occasions only Patient Tobacco Use Status: Former Tobacco user Quit Date: 16 yrs prior Tobacco use type: Cigarette Cigarette Packs Per Day: 1 Cigarettes Per Day: 20.0 e-Cigarette/Vaping Use: Never Used Second Hand Smoke Exposure: No Substance Use Type: Marijuana Advance Directives Date on File: 11/08/22 service: No Current occupational status: disabled Sexual orientation: Straight/Heterosexual Cognitive needs: No Hearing needs: No Vision needs: No Review of Systems Const All systems reviewed & are unremarkable except as noted in HPI and below Physical Exam Vital Signs: Last Vital Signs BP 132/82 12/06/22 11:35 BMI result Body Mass Index 25.1 Const General: cooperative, healthy appearing and no acute distress Orientation/consciousness: patient oriented x3 GI Inspection: Yes normal to inspection Palpation (GI): Soft to palpation and Other GI palpation findings present (Nontender) Rectal Exam - Female: visual inspection normal Other: significant atrophic changes. thin, fragile tissue, abraded with the small speculum when opened causing superficial bleeding posterior vaginal area General: Yes bladder normal to palpation External Female Exam: normal appearance of the urethra Speculum Exam - Vagina: normal appearance of the vagina, normal palpation and normal vaginal discharge Speculum Exam - Cervix: normal appearance of the cervix and normal palpation Bimanual exam- vagina & uterus: normal bimanual exam, normal palpation, uterine size normal, bladder normal to palpation, normal palpation, uterine shape normal and non-tender Bimanual Exam- Adnexa, other: normal adnexae Neuro General: patient oriented x3 Results Reviewed Results Reviewed: 11/05/22 US FINDINGS: Uterus: The uterus is anteverted and anteflexed measuring 8.1 x 2.2 x 3.9. 3.9 x 3.1 x 3.5 cm. uterine fibroid is identified, previous measurement was 4.6 x 3.2 x 3.9 cm. Endometrium measures 0.1 cm. Nonvisualization bilateral ovaries. No free fluid. IMPRESSION: 3.9 cm uterine fibroid. Nonvisualization bilateral ovaries. Assessment & Plan Assessment & Plan (1) Leiomyoma: Code(s): D21.9 - Benign neoplasm of connective and other soft tissue, unspecified (2) Encounter to discuss test results: Code(s): Z71.2 - Person consulting for explanation of examination or test findings (3) Leiomyoma: Code(s): D21.9 - Benign neoplasm of connective and other soft tissue, unspecified Plan Discussed: Fibroids, stable and smaller. Check yearly for stability or sooner if any pelvic pain, pressure, vaginal bleeding. Significant atrophic changes noted today, explained to tissue is thin and fragile and abraded posteriorly with the small speculum alone today, this is common with aging. If sexually active could have significant tears, advised to come in the office for discussion/care if considering intimacy beforehand. If any VB to report to the office for further evaluation. RTO for annual 03/2022. Coding Level of Care Code Est Pt Level 3 (15816) Diagnoses Leiomyoma D21.9 Encounter to discuss test results Z71.2
[2022-12-06 11:35] VITALS: BP 132/82; BMI 25.1
== END 2022-12-06 11:59 | disposition home or self-care (01) ==
PROVIDERS: Visit Provider Advanced Practice Midwife
DX: D21.9 Benign neoplasm of connective and other soft tissue, unspecified (principal); Z71.2 Person consulting for explanation of examination or test findings
CPT/HCPCS: 99213

== ENCOUNTER → 2022-12-06 11:32 | Outpatient (BNVA) | payer OTHER, SELFPAY | PROVIDERS: Visit Provider Advanced Practice Midwife | DX: D21.9 Benign neoplasm of connective and other soft tissue, unspecified (principal); Z71.2 Person consulting for explanation of examination or test findings | CPT/HCPCS: 99212 ==

== ENCOUNTER → 2022-12-12 08:47 | Outpatient (REF) | payer OTHER, SELFPAY | LOC: HO.SL 08:47 | PROVIDERS: Visit Provider Nurse Practitioner Family | DX: Z13.89 Encounter for screening for other disorder (principal) ==

== ENCOUNTER 2022-12-12 13:23 | Inpatient (IN) | payer OTHER, SELFPAY ==
[2022-12-12 13:33] VITALS: BP 180/120; PULSE 121; O2SAT 97
--- NOTE | 2022-12-12 13:46 | MHC.CARE ---
1315 Call from [facility] clinician, Madelaine Bernal, this patient was evaluated in her home and sent to [facility] to await psychiatric placement, is manic and agitated.
[2022-12-12] MEDS: LORazepam 2 MG/ML VIAL IM (13:58)
[2022-12-12] MEDS: diphenhydrAMINE HCL 50 MG/ML VIAL IM (13:58)
[2022-12-12] MEDS: Haloperidol Lactate 5 MG/ML VIAL 10 MG IM ×2 (13:59→14:23)
[2022-12-12 14:04] VITALS: RESP 20; BMI 24.8
[2022-12-12 14:35] VITALS: BP 107/62; PULSE 122; RESP 18; TEMP 36.6; O2SAT 96
--- NOTE | 2022-12-12 14:42 | PC.NURSE ---
manic, loud and argumentative on arrival, medicated with im [id number], [id number] and [id number], pt asked for more and an additional 10mg haldol given as ordered, after approx 20 minutes, pt was agreeable to have vitals done
[2022-12-12 15:00] LABS: MANUAL DIFF FLAG NO
[2022-12-12 15:01] LABS: Basophils Percent Auto 0.4 % (0-2); Eosinophils Percent Auto 0.2 % (0-4); Hematocrit 38.1 % (37.0-47.0); Hemoglobin 13.6 g/dl (12.0-16.0); Imm Gran Abs Auto 0.05 X10*3/uL (0.00-0.03); Imm Gran Pct Auto 0.6 % (0.0-0.4); Lymphocytes Percent Auto 11.1 % (20-40); Mean Corpuscular HGB Conc 35.7 g/dl (31.0-35.0); Mean Corpuscular Hemoglobin 30.5 pg (27.0-33.0); Mean Corpuscular Volume 85.4 fL (80.0-98.0); Mean Platelet Volume 9.3 fL (9.4-12.3); Monocytes Absolute Auto 0.6 X10*3/uL (0.1-1.2); Monocytes Percent Auto 6.4 % (2-11); Neutrophils Absolute Auto 7.3 x10*3/uL (2.0-8.3); Neutrophils Percent Auto 81.3 % (45-73); Platelet Count 328 X10*3/uL (160-400); Red Blood Count 4.46 X10*6/uL (4.20-5.50); Red Cell Distribution Width 12.8 % (11.0-16.0)
[2022-12-12 15:14] LABS: Anion Gap 16 (12-20); Blood Urea Nitrogen 17 mg/dL (9-16); Calcium 10.2 mg/dL (8.4-10.2); Carbon Dioxide 24 mmol/L (22-29); Chloride 94 mmol/L (96-108); Creatinine Clr Calc Pharmacy 39.2; Estimated Glomerular Filt Rate 40; Glucose Random 128 mg/dL (60-115); Potassium 5.2 mmol/L (3.3-5.1); Sodium 129 mmol/L (135-145)
--- NOTE | 2022-12-12 16:04 | ED.PSYCH ---
HPI - Psych General Chief Complaint: Psychiatric Symptoms Stated Complaint: ANXIETY / PANIC ATTACK Time Seen by Provider: 12/12/22 13:29 Source: EMS Mode of arrival: EMS Limitations: other (Rj) History of Present Illness HPI Narrative: 62-year-old female with a history of HLD, insomnia, bipolar, non-epileptic seizures, rj who presents emergency department for evaluation of manic episode. See patient presents on a Section 12 for yelling and talking nonstop. Patient was the pressured speech, she was not cooperative. I did evaluate the patient and felt the patient would be appropriate for the emergency department Behavioral Health Unit. The patient was uncooperative, she kept leaving her room,, she was aggressive, she had pressure speech. I was concerned the patient may injure herself or injure staff therefore she was medicated with Haldol 5 mg IM, Benadryl 50 mg IM and Ativan 2 mg IM. She required a 2nd dose of Haldol 10 mg IM in order to sufficiently calm her down. In reviewing her record the patient was hospitalized on the psychiatric service from 11/06/2022 until 11/21/2022. Her discharge diagnosis that that time was acute bipolar disorder, psychogenic nonepileptic seizures, essential hypertension PTSD. Related Data Home Medications Medication Instructions Recorded Confirmed melatonin 3 mg tablet 9 mg PO BEDTIME 10/26/22 11/05/22 Previous Rx's Medication Instructions Recorded Centrum 1 tab PO DAILY ##0 11/21/22 carbamazepine 400 mg 400 mg PO BID 30 days #60 tabs 11/21/22 tablet,extended release,12 hr carvedilol 12.5 mg tablet 12.5 mg PO Q12H 30 days #60 tabs 11/21/22 zolpidem 10 mg tablet 10 mg PO BEDTIME PRN insomnia 30 11/21/22 days #30 tabs Allergies Allergy/AdvReac Type Severity Reaction Status Date / Time olanzapine AdvReac Severe visual Verified 12/06/22 11:36 changes Review of Systems Review of Systems: Yes Unobtainable due to mental status PMFSH Past Medical History Medical History Leiomyoma PTSD (post-traumatic stress disorder) Bipolar I disorder Tinea unguium History of psychogenic nonepileptic seizure Impaired fasting glucose Dyslipidemia (high LDL; low HDL) Hx of suicide attempt On beta baldemar at home Arthritis Anxiety Diastasis recti Umbilical hernia Compression fracture of L1 lumbar vertebra Dupuytren's contracture of left hand Lumbar disc herniation Essential hypertension Ventral hernia Urinary incontinence Surgical History H/O shoulder surgery Hx of elbow surgery Hx of repair of left rotator cuff Hx of colonoscopy History of lumbar fusion Family History Family History Father Diabetes mellitus Mother COPD (chronic obstructive pulmonary disease) Sister Diabetes mellitus Glaucoma Other Mental health disorder Substance use disorder Social History Social History Household Members: Other Household Members Other:: brother Housing: House Are you a primary healthcare applications analyst to a significant other at home: No Do you presently have visiting nurse or other home services: No (not currently) Alcohol intake: current Alcohol intake frequency: holidays/special occasions only Patient Tobacco Use Status: Former Tobacco user Quit Date: 16 yrs prior Tobacco use type: Cigarette Cigarette Packs Per Day: 1 Cigarettes Per Day: 20.0 e-Cigarette/Vaping Use: Never Used Second Hand Smoke Exposure: No Substance Use Type: Marijuana Advance Directives: Yes Advance Directives on File: Yes Advance Directives Date on File: 11/08/22 service: No Current occupational status: disabled Sexual orientation: Straight/Heterosexual Cognitive needs: No Hearing needs: No Vision needs: No Physical Exam Vital Signs: Vital Signs: Last Vital Signs Temp 97.8 F 12/12/22 14:35 Pulse 122 H 12/12/22 14:35 Resp 18 12/12/22 14:35 BP 107/62 12/12/22 14:35 Pulse Ox 96 12/12/22 14:35 O2 Del Method Room Air 12/12/22 14:35 BMI result Body Mass Index 24.8 Vital signs were no Exam General: Awake, alert in no distress Head: Normocephalic, atraumatic EENT: PERRL, Lids normal, sclera normal, conjunctiva normal, nose normal , ears normal, throat without erythema or exudates Neck: Supple, no adenopathy, no trachea midline or C-spine tenderness Lung: breath sounds symmetric, no wheezing, rales or rhonchi Chest: symmetric movement, nontender Heart: regular rate and rhythm, normal S1, S2 no murmurs or rubs Abdomen: soft, non-tender, nondistended, normal bowel sounds Back: no vertebral tenderness, no CVAT Extremities: no deformities, moves all extremities symmetrically Skin: no rashes, no lesion, normal color and warmth Neuro: Awake, alert, oriented, normal speech, cranial nerves intact, moves all extremities symmetrically Psych: Pleasant, cooperative Medications Administered Discontinued Medications Generic Name Dose Route Start Last Admin Trade Name Zena PRN Reason Stop Dose Admin Diphenhydramine HCl 50 mg 12/12/22 13:48 12/12/22 13:58 Diphenhydramine Hcl 50 Mg/Ml Vial IM 12/12/22 13:49 50 mg ONCE STA Administration Haloperidol Lactate 10 mg 12/12/22 13:57 12/12/22 13:59 Haloperidol Lactate 5 Mg/Ml Vial IM 12/12/22 13:58 5 mg STAT STA Administration Haloperidol Lactate 10 mg 12/12/22 14:16 12/12/22 14:23 Haloperidol Lactate 5 Mg/Ml Vial IM 12/12/22 14:17 10 mg STAT STA Administration Lorazepam 2 mg 12/12/22 13:48 12/12/22 13:58 Lorazepam 2 Mg/Ml Vial IM 12/12/22 13:49 2 mg ONCE STA Administration Medical Decision Making Medical Decision Making [facility] Narrative: 62-year-old female with a history of HLD, insomnia, bipolar, non-epileptic seizures, rj who presents emergency department for evaluation of manic episode. Patient required, course on presentation with Haldol, Ativan and Benadryl. Following evaluation was ordered: CBC, BMP, urine drug screen, ethanol level urinalysis, TSH with reflex T4, COVID-19 16:35 At the end of my shift patient's workup is not complete, patient's care was turned over to my colleague, Dr. Rosa Joya. Differential Diagnosis Differential Diagnoses: The differential diagnosis associated with the presentation includes Differential diagnosis includes was not limited to rj, noncompliance with medications, polysubstance use disorder, hyperthyroidism, electrolyte abnormality, Admission/Observation Consideration of admission/observation: Escalation of care including admission/observation considered Lab Data [facility] Lab Attestation statement: I reviewed the patient's lab results. My interpretation patient's laboratory evaluation as follows: CBC was normal sodium low 129, potassium high 5.2, chloride low 94, glucose elevated 128-I do not think that these abnormal tests are the cause of her rj. Urine tox screen, TSH, level are pending 12/12/22 14:56 12/12/22 14:56 Labs: Lab Results 12/12/22 Range/Units 14:56 WBC 9.0 (4.8-10.8) X10*3/uL RBC 4.46 (4.20-5.50) X10*6/uL Hgb 13.6 (12.0-16.0) g/dl Hct 38.1 (37.0-47.0) % MCV 85.4 (80.0-98.0) fL MCH 30.5 (27.0-33.0) pg MCHC 35.7 H (31.0-35.0) g/dl RDW 12.8 (11.0-16.0) % Plt Count 328 (160-400) X10*3/uL MPV 9.3 L (9.4-12.3) fL Immature Gran % (Auto) 0.6 H (0.0-0.4) % Neut % (Auto) 81.3 H (45-73) % Lymph % (Auto) 11.1 L (20-40) % Quay % (Auto) 6.4 (2-11) % Eos % (Auto) 0.2 (0-4) % Baso % (Auto) 0.4 (0-2) % Lymph # (Auto) 1.0 L (1.2-4.9) X10*3/uL Quay # (Auto) 0.6 (0.1-1.2) X10*3/uL Eos # (Auto) 0.0 (0.0-0.4) X10*3/uL Baso # (Auto) 0.0 (0.0-0.2) X10*3/uL Abs Immat Gran (auto) 0.05 H (0.00-0.03) X10*3/uL Absolute Neuts (auto) 7.3 (2.0-8.3) x10*3/uL Absolute Nucleated RBC 0.000 (0.0-0.012) X10*3/uL Nucleated RBC % (auto) 0.0 (0.0-0.2) /100WBC Sodium 129 L (135-145) mmol/L Potassium 5.2 H D (3.3-5.1) mmol/L Chloride 94 L (96-108) mmol/L Carbon Dioxide 24 (22-29) mmol/L Anion Gap 16 (12-20) BUN 17 H (9-16) mg/dL Creatinine 1.35 (0.5-1.4) mg/dL Estim Creat Clear Calc 39.2 Estimated GFR 40 Random Glucose 128 H (60-115) mg/dL Calcium 10.2 (8.4-10.2) mg/dL Discharge Plan Discharge Clinical Impression: Rj Patient Disposition: Still a Patient Prescriptions: No Action melatonin 3 mg tablet 9 mg PO BEDTIME carbamazepine 400 mg tablet extended release 12 hr 400 mg PO BID 30 Days Qty: 60 0RF Centrum 1 tab PO DAILY Qty: 0 0RF carvedilol 12.5 mg tablet 12.5 mg PO Q12H 30 Days Qty: 60 0RF zolpidem 10 mg tablet 10 mg PO BEDTIME PRN (Reason: insomnia) 30 Days Qty: 30 0RF
[2022-12-12 16:46] VITALS: PULSE 76; RESP 18
[2022-12-12 16:56] LABS: Ethanol < 10 mg/dL
[2022-12-12 17:13] LABS: TSH reflex Free T4 3.14 uIU/mL (0.32-4.0)
[2022-12-12 17:24] LABS: COVID-19 Test Negative (Negative); IDNOW Serial# BCCEAD1C
--- NOTE | 2022-12-12 22:41 | PC.NURSE ---
Med req completed
[2022-12-12 23:24] LABS: Appearance Urine Cloudy; Color Urine Dark Yellow; Glucose Urine UA Negative (Negative); Leukocyte Esterase Urine Negative (Negative); Nitrite Urine Negative (Negative); PH 5.5 (5.0-9.0); UMIC TRIGGER UACC YES; Urine Blood Negative (Negative); Urine Ketones Negative (Negative); Urine Protein 30 (1+) mg/dL (Neg-Trace)
[2022-12-12 23:27] VITALS: BP 136/75; PULSE 76; RESP 12; O2SAT 99
[2022-12-12 23:29] LABS: Amphetamine Screen Urine Not Detected (Not Detect); Barbiturates, Urine Not Detected (Not Detect); Benzodiazepines Screen Urine Not Detected (Not Detect); Cannabinoid Screen Urine POSITIVE (Not Detect); Cocaine Screen Urine Not Detected (Not Detect); Fentanyl, urine Not Detected (Not Detect); Opiate Screen Urine Not Detected (Not Detect); Phencyclidine Screen Urine Not Detected (Not Detect)
--- NOTE | 2022-12-12 23:29 | PC.NURSE ---
Pt calm and cooperative at the bedside. Provided urine sample. Labs drawn and sent. Fod and drink provided as requested. No apparent distress noted. Reports no pain.
[2022-12-12 23:37] LABS: Bacteria Urine None Seen (None Seen); Calcium Oxalate Crystals Urine Present; Hyaline Casts Urine >20 /LPF (0-2); RBC Urine 0-2 /HPF (0-2); WBC Urine 0-5 /HPF (0-5)
[2022-12-12 23:43] LABS: Carbamazepine Tegretol < 2.0 mcg/mL (5.0-12.0)
[2022-12-13 02:00] LABS: Anion Gap 17 (12-20); Blood Urea Nitrogen 20 mg/dL (9-16); Calcium 9.2 mg/dL (8.4-10.2); Carbon Dioxide 22 mmol/L (22-29); Chloride 95 mmol/L (96-108); Creatinine Clr Calc Pharmacy 48.6; Estimated Glomerular Filt Rate 51; Glucose Random 129 mg/dL (60-115); Potassium 3.9 mmol/L (3.3-5.1); Sodium 130 mmol/L (135-145)
[2022-12-13] MEDS: carvediloL 12.5 MG TABLET PO ×2 (03:14→15:10)
--- NOTE | 2022-12-13 06:43 | PC.NURSE ---
Pt reports having an important mammogram appt tomorrow morning which pt cannot miss. Pt is requesting assistance with keeping this appt.
--- NOTE | 2022-12-13 07:29 | ECG_ITS ---
Test Reason : check qt Blood Pressure : / mmHG Vent. Rate : 074 BPM Atrial Rate : 074 BPM P-R Int : 168 ms QRS Dur : 084 ms QT Int : 384 ms P-R-T Axes : 060 030 055 degrees QTc Int : 426 ms Normal sinus rhythm with sinus arrhythmia Normal ECG When compared with ECG of 05-NOV-2022 12:54, No significant change was found Referred By: Otilia Forde Electronically Signed By:LUIS MAS MD
[2022-12-13 08:03] VITALS: BP 109/71; PULSE 78; RESP 16; TEMP 36.9; O2SAT 99
[2022-12-13 15:00] VITALS: BP 139/91; PULSE 91; RESP 18; TEMP 36.5; O2SAT 97
--- NOTE | 2022-12-13 18:17 | PC.NURSE ---
Caryn was OOB this shift and visible watching TV in the milieu. Frequent visits up to the nurses station to discuss her situation and her brother. Caryn refused her Tegretol this morning and began to yell angrily for this writer editor to not offer things to me . Caryn was able to be redirected and verbalized she did not want to take any medications that might not be what we are saying they are. Caryn was agreeable to take her Carvedilol this afternoon and after some discussions with this writer editor she was agreeable to take her HS dose of Tegretol which will be offered at 1999. Appetite is good and Caryn has been taking fluids PO. Denies SI/HI/AVH. Caryn verbalized there was no reason for her to be in the hospital. Caryn was having a difficult time with another patient in the POD this shift and was frequently yelling for him to shut up or verbalizing things when he was talking. aCryn was not able to be redirected and had a very difficult time with this particular peer. Caryn reports she has an appointment in the morning for a mammogram at [facility] which she reports she can not miss as they previously visualized a mass.
[2022-12-13 20:13] VITALS: BP 148/102; PULSE 89; RESP 18; TEMP 36.7; O2SAT 97
--- NOTE | 2022-12-13 20:24 | PC.NURSE ---
Patient nurse to nurse given to Luda IVORY on m3.
[2022-12-13 22:00] VITALS: BP 118/98; PULSE 78; RESP 18; TEMP 36.6; O2SAT 99
[2022-12-13 22:18] LABS: Carbamazepine Tegretol < 2.0 mcg/mL (5.0-12.0)
[2022-12-13] MEDS: Melatonin 3 MG TABLET 9 MG PO (23:20)
[2022-12-13] MEDS: carBAMazepine ER 200 MG TAB.ER.12H 400 MG PO (23:21)
[2022-12-13] MEDS: Zolpidem Tartrate 5 MG TABLET 10 MG PO (23:21)
[2022-12-13] MEDS: hydrOXYzine HCL 25 MG TABLET PO (23:27)
[2022-12-14 02:10] VITALS: BP 126/88; PULSE 108
[2022-12-14] MEDS: carvediloL 12.5 MG TABLET PO ×2 (02:36→14:00)
--- NOTE | 2022-12-14 02:37 | PC.ADMIT ---
Caryn was admitted from [facility] for Bipolar I rj, on a CV. she is hyper-verbal grandiose with flight of ideas. she is very difficult to redirect and has a difficult time staying on task. patient becomes agitated with any redirection and has made multiple comments about staff members not knowing how to do their job. she was verbally aggressive with the labeler. stating you don't even know what you're doing. If you can't get it right I'll do it myself patient stated several times that she lives with her brother but that she doesn't like being there because he controls everything I do. and I have to give him money every month for the privilege of living with him, but if I didn't I would be homeless. patient states that she has severe PTSD from all the things I've gone through patient completed all admission paperwork, patient oriented to the unit. patient has made multiple statements that she has [facility]. admitting provider made aware
[2022-12-14 06:00] VITALS: BP 212/119; PULSE 96; O2SAT 96
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
[2022-12-14] MEDS: carBAMazepine ER 200 MG TAB.ER.12H 400 MG PO (08:37)
[2022-12-14] MEDS: Multivitamin TABLET 1 TAB PO (08:37)
[2022-12-14 09:06] LABS: Estimated Average Glucose 100 mg/dL; Hemoglobin A1c % 5.1 % (<6.0)
[2022-12-14 09:31] LABS: Alanine Aminotransferase 35 U/L (0-31); Albumin Level 4.6 g/dL (3.5-5.0); Alkaline Phosphatase 89 U/L (39-117); Anion Gap 16 (12-20); Aspartate Amino Transferase 32 U/L (5-31); Bilirubin Total 0.3 mg/dL (0.0-1.0); Blood Urea Nitrogen 15 mg/dL (9-16); Carbon Dioxide 23 mmol/L (22-29); Chloride 93 mmol/L (96-108); Cholesterol 255 mg/dL (<200); Creatinine Clr Calc Pharmacy 72.6; Estimated Glomerular Filt Rate > 60; Glucose Fasting 168 mg/dL (60-99); HDL Cholesterol 72 mg/dL (>40); LDL Cholesterol Calculated 163 mg/dL (<100); Potassium 4.6 mmol/L (3.3-5.1); Sodium 127 mmol/L (135-145); Total Protein 8.1 g/dL (6.5-8.0); Triglycerides 100 mg/dL (<150)
[2022-12-14 09:48] LABS: Thyroid Stimulating Hormone 1.86 uIU/mL (0.32-4.0)
[2022-12-14 09:56] LABS: Folate 13.2 ng/mL (> or = 4.0); Vitamin B12 1448 pg/mL (200-900)
[2022-12-14] MEDS: diphenhydrAMINE HCL 50 MG/ML VIAL IM (13:02)
[2022-12-14] MEDS: Haloperidol Lactate 5 MG/ML VIAL 10 MG IM (13:02)
[2022-12-14] MEDS: LORazepam 2 MG/ML VIAL IM (13:02)
--- NOTE | 2022-12-14 14:36 | PC.NURSE ---
Pt medication restraint at 1302 and ended at 1303, DR orders received, met with pt at 1320, paperwork done, leadership aware.
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
[2022-12-14 20:30] VITALS: BP 116/71; PULSE 84; RESP 14; TEMP 36.4; O2SAT 99
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
[2022-12-15 07:21] LABS: Sodium Urine Random < 20.0 mmol/L
[2022-12-15 07:41] LABS: Osmolality Urine 264 mosm/kg (373-1093)
[2022-12-15 08:30] VITALS: BP 154/83; PULSE 75; RESP 18; TEMP 36.3; O2SAT 100
[2022-12-15] MEDS: Multivitamin TABLET 1 TAB PO (08:53)
[2022-12-15] MEDS: carBAMazepine ER 200 MG TAB.ER.12H 400 MG PO (08:53)
[2022-12-15] MEDS: carvediloL 12.5 MG TABLET PO ×2 (08:53→20:53)
--- NOTE | 2022-12-15 15:29 | HO.PSYCHPN ---
Subjective Subjective Date of Service: 12/15/22 Reason For Visit: psychosis Subjective Notes: 3 Day Healthcare Proxy: No Guardianship: No Medical Problems Affecting Mental Status: No Interim History: Episodes of yelling and grabbing at others. Observed by staff to be standing over roommate's bed and lifted up her shirt. Received medication restraint yesterday. Complains of coughing but this is not noted in the chart. Sodium has dropped to 127 today. Hospitalist reviewed chart yesterday and suggested discontinuing tegretol and following sodium daily. Medication Compliance: Yes Side effects from medications: No Attending Groups: No Review of Systems Acute medical concerns: Yes hyponatremia persisting and is worse today Medical Review of Systems: unchanged Mental Status Exam Mental Status Exam Patient Appearance: Disheveled Patient Orientation: Person, Place and Time Level of Consciousness: Alert Patient Behavior: Distractible Mood Description: Calm Affect Description: Blunted Patient Cognition Impaired: No Ability to Follow Directions: Good Speech Pattern: Clear Memory Description: Intact Hallucinations: None Delusions: Not Present Thought Process: Linear Thought Content: positive for Slowed Thinking Depressive Symptoms: Difficulty Sleeping Abnormal Motor Activity Signs and Symptoms: Aggression Judgement: Fair Diagnostics Vital Signs (24Hr): Vital Signs - 24 hr 12/14/22 20:30 12/15/22 08:30 Temperature 97.6 F 97.4 F Pulse Rate 84 75 Respiratory Rate 14 18 Blood Pressure 116/71 154/83 H Pulse Oximetry 99 100 Oxygen Delivery Method Room Air Room Air BMI result Body Mass Index 24.8 Labs 12/12/22 14:56 12/14/22 08:18 Labs: Laboratory Results - last 48 hr 12/13/22 12/14/22 12/14/22 21:51 06:45 08:18 Sodium 127 L Potassium 4.6 Chloride 93 L Carbon Dioxide 23 Anion Gap 16 BUN 15 Creatinine 0.73 Estim Creat Clear Calc 72.6 Estimated GFR > 60 Fasting Glucose 168 H Estimat Average Glucose 100 Hemoglobin A1c % 5.1 Calcium 10.0 D Total Bilirubin 0.3 AST 32 H ALT 35 H Alkaline Phosphatase 89 Total Protein 8.1 H Albumin 4.6 Triglycerides 100 Cholesterol 255 H LDL Cholesterol, Calc 163 H HDL Cholesterol 72 Vitamin B12 1448 H Folate 13.2 TSH 1.86 Urine Osmolality 264 L Ur Random Sodium < 20.0 Carbamazepine < 2.0 L* Medications Medications Current Medications Acetaminophen (Acetaminophen 325 Mg Tablet) 650 mg PO Q6H PRN PRN Reason: Headache/Pain Mild Scale (1-3) Al Hydroxide/Mg Hydroxide (Magnesium Hydrox/Alum Hydrox 30 Ml Oral.Susp) 30 ml PO Q6H PRN PRN Reason: Heartburn/Nausea Carbamazepine (Carbamazepine Er 200 Mg Tab.Er.12h) 400 mg PO BID [facility] Last Admin: 12/15/22 08:53 Dose: 400 mg Carvedilol (Carvedilol 12.5 Mg Tablet) 12.5 mg PO BID [facility]; Protocol Last Admin: 12/15/22 08:53 Dose: 12.5 mg Hydroxyzine HCl (Hydroxyzine Hcl 25 Mg Tablet) 25 mg PO Q6H PRN PRN Reason: Anxiety Last Admin: 12/13/22 23:27 Dose: 25 mg Magnesium Hydroxide (Milk Of Magnesia 30 Ml Oral.Susp) 30 ml PO DAILY PRN PRN Reason: Constipation Melatonin (Melatonin 3 Mg Tablet) 9 mg PO BEDTIME [facility] Last Admin: 12/15/22 01:44 Dose: Not Given Multivitamins/Vitamin C (Multivitamin Tablet) 1 tab PO DAILY [facility] Last Admin: 12/15/22 08:53 Dose: 1 tab Olanzapine (Olanzapine 10 Mg Tablet) 20 mg PO BEDTIME [facility] Last Admin: 12/13/22 23:15 Dose: Not Given Trazodone HCl (Trazodone Hcl 50 Mg Tablet) 50 mg PO BEDTIME PRN PRN Reason: insomnia Zolpidem Tartrate (Zolpidem Tartrate 5 Mg Tablet) 10 mg PO BEDTIME PRN PRN Reason: insomnia Last Admin: 12/13/22 23:21 Dose: 10 mg Allergies Allergies Allergy/AdvReac Type Severity Reaction Status Date / Time olanzapine AdvReac Severe visual Verified 12/06/22 11:36 changes divalproex sodium AdvReac Mild hyperammone Verified 12/14/22 15:42 [From Depakote] yoan Assessment & Plan Assessment & Plan (1) Roz: Status: Acute Code(s): F30.9 - Manic episode, unspecified (2) Bipolar I disorder: Status: Acute Code(s): F31.9 - Bipolar disorder, unspecified (3) Hyponatremia: Status: Acute Code(s): E87.1 - Hypo-osmolality and hyponatremia Assessment and Plan: Per Psych team, felt to not be related to tegretol but hospitalist recommends stopping tegretol and following sodium daily. Plan 12/15/22 Hold tegretol See hospitalist consult for hyponatremia. Reason for continued inpatient stay Substantial Risk for: harm to others Time Spent With Patient Time: Total time managing care of this patient today ____ minutes.
[2022-12-15 18:00] VITALS: BP 146/89; PULSE 80; TEMP 36.5; O2SAT 97
[2022-12-15] MEDS: Melatonin 3 MG TABLET 9 MG PO (20:53)
[2022-12-15] MEDS: guaiFEN/Codeine SF 200/20/10ML 10 ML LIQUID PO (21:08)
[2022-12-15] MEDS: Zolpidem Tartrate 5 MG TABLET 10 MG PO (23:17)
[2022-12-16] MEDS: guaiFEN/Codeine SF 200/20/10ML 10 ML LIQUID PO ×4 (01:23→21:08)
[2022-12-16] MEDS: Acetaminophen 325 MG TABLET 650 MG PO (04:06)
--- NOTE | 2022-12-16 06:43 | PC.NURSE ---
Patient requested RN to cut off her woody head so that she can wear it on the unit.
[2022-12-16 08:15] VITALS: BP 149/79; PULSE 68; RESP 17; TEMP 35.7; O2SAT 100
[2022-12-16 08:41] LABS: Anion Gap 11 (12-20); Blood Urea Nitrogen 8 mg/dL (9-16); Calcium 8.9 mg/dL (8.4-10.2); Carbon Dioxide 26 mmol/L (22-29); Chloride 93 mmol/L (96-108); Creatinine Clr Calc Pharmacy 79.1; Estimated Glomerular Filt Rate > 60; Glucose Random 119 mg/dL (60-115); Potassium 3.9 mmol/L (3.3-5.1); Sodium 126 mmol/L (135-145)
[2022-12-16] MEDS: carvediloL 12.5 MG TABLET PO ×2 (08:44→21:07)
[2022-12-16] MEDS: Multivitamin TABLET 1 TAB PO (08:44)
[2022-12-16] MEDS: Pseudoephedrine HCL 30 MG TABLET PO ×2 (09:25→17:34)
--- NOTE | 2022-12-16 09:58 | PC.NURSE ---
Pt's sodium is 126, Dr. Morin & Dr. Stone aware, awaiting response and recommendations.
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
[2022-12-16 20:58] VITALS: BP 138/79; PULSE 71; RESP 18; TEMP 36; O2SAT 98
[2022-12-16] MEDS: Zolpidem Tartrate 5 MG TABLET 10 MG PO (21:08)
[2022-12-16] MEDS: Melatonin 3 MG TABLET 9 MG PO (21:08)
[2022-12-17] MEDS: guaiFEN/Codeine SF 200/20/10ML 10 ML LIQUID PO ×2 (03:21→16:40)
[2022-12-17] MEDS: Milk of Magnesia 30 ML ORAL.SUSP PO (05:25)
[2022-12-17 08:18] VITALS: BP 142/77; PULSE 75; RESP 16; TEMP 36.2; O2SAT 97
[2022-12-17] MEDS: Multivitamin TABLET 1 TAB PO (08:50)
[2022-12-17] MEDS: carvediloL 12.5 MG TABLET PO ×2 (08:50→21:30)
[2022-12-17] MEDS: LORazepam 1 MG TABLET 2 MG PO ×2 (14:09→21:36)
--- NOTE | 2022-12-17 14:50 | HO.PSYCHPN ---
Subjective Subjective Date of Service: 12/17/22 Reason For Visit: psychosis Interim History: loud, labile. aware her Na is too low, states she is drinking a lot of fluids and has had hyponatremia as a result of potomania in the past. agrees to fluid restriction. informs her medications will be restarted, as she has been essentially untreated for roz through the weekend. reports poor sleep. per staff, jhyperverbal, tangential. taking meds. coughing, congested. low Na+. tegretol and olanzapine on hold all w/e with no improvement in Na+. Mental Status Exam Mental Status Exam Narrative: Pt is alert and oriented; behavior is disorganized; patient is not in distress; dressed in casual attire with unkempt hair but adequate hygiene; affect constricted, hyper-intense, labile; eye contact appropriate; Speech is pressured, verbose, rambling; moderate psychomotor agitation present; thought process disorganized, tangential; Thought content negative for notable paranoia or delusions. no SI/HI/AVH expressed. Patients insight and judgment impaired Diagnostics Vital Signs (24Hr): Vital Signs - 24 hr 12/16/22 20:58 12/17/22 08:18 Temperature 96.8 F 97.1 F Pulse Rate 71 75 Respiratory Rate 18 16 Blood Pressure 138/79 142/77 H Pulse Oximetry 98 97 Oxygen Delivery Method Room Air Room Air BMI result Body Mass Index 24.8 Labs 12/12/22 14:56 12/16/22 07:50 Labs: Laboratory Results - last 48 hr 12/16/22 07:50 Sodium 126 L Potassium 3.9 Chloride 93 L Carbon Dioxide 26 Anion Gap 11 L BUN 8 L Creatinine 0.67 Estim Creat Clear Calc 79.1 Estimated GFR > 60 Random Glucose 119 H Calcium 8.9 D Medications Medications Current Medications Acetaminophen (Acetaminophen 325 Mg Tablet) 650 mg PO Q6H PRN PRN Reason: Headache/Pain Mild Scale (1-3) Last Admin: 12/16/22 04:06 Dose: 650 mg Al Hydroxide/Mg Hydroxide (Magnesium Hydrox/Alum Hydrox 30 Ml Oral.Susp) 30 ml PO Q6H PRN PRN Reason: Heartburn/Nausea Carbamazepine (Carbamazepine Er 200 Mg Tab.Er.12h) 400 mg PO BID [facility] Last Admin: 12/15/22 08:53 Dose: 400 mg Carvedilol (Carvedilol 12.5 Mg Tablet) 12.5 mg PO BID [facility]; Protocol Last Admin: 12/17/22 08:50 Dose: 12.5 mg Guaifenesin/Codeine Phosphate (Guaifen/Codeine Sf 200/20/10ml 10 Ml Liquid) 10 ml PO Q6H PRN PRN Reason: Congestion Last Admin: 12/17/22 03:21 Dose: 10 ml Hydroxyzine HCl (Hydroxyzine Hcl 25 Mg Tablet) 25 mg PO Q6H PRN PRN Reason: Anxiety Last Admin: 12/13/22 23:27 Dose: 25 mg Lorazepam (Lorazepam 1 Mg Tablet) 2 mg PO Q4H PRN PRN Reason: agitation Last Admin: 12/17/22 14:09 Dose: 2 mg Magnesium Hydroxide (Milk Of Magnesia 30 Ml Oral.Susp) 30 ml PO DAILY PRN PRN Reason: Constipation Last Admin: 12/17/22 05:25 Dose: 30 ml Melatonin (Melatonin 3 Mg Tablet) 9 mg PO BEDTIME [facility] Last Admin: 12/16/22 21:08 Dose: 9 mg Multivitamins/Vitamin C (Multivitamin Tablet) 1 tab PO DAILY [facility] Last Admin: 12/17/22 08:50 Dose: 1 tab Olanzapine (Olanzapine 10 Mg Tablet) 20 mg PO BEDTIME [facility] Last Admin: 12/13/22 23:15 Dose: Not Given Pseudoephedrine HCl (Pseudoephedrine Hcl 30 Mg Tablet) 30 mg PO Q6H PRN PRN Reason: Congestion Last Admin: 12/16/22 17:34 Dose: 30 mg Trazodone HCl (Trazodone Hcl 50 Mg Tablet) 50 mg PO BEDTIME PRN PRN Reason: insomnia Allergies Allergies Allergy/AdvReac Type Severity Reaction Status Date / Time olanzapine AdvReac Severe visual Verified 12/06/22 11:36 changes divalproex sodium AdvReac Mild hyperammone Verified 12/14/22 15:42 [From Depakote] yoan Assessment & Plan Assessment & Plan (1) Roz: Status: Acute Code(s): F30.9 - Manic episode, unspecified (2) Bipolar I disorder: Status: Acute Code(s): F31.9 - Bipolar disorder, unspecified (3) Hyponatremia: Status: Acute Code(s): E87.1 - Hypo-osmolality and hyponatremia Assessment and Plan: Per Psych team, felt to not be related to tegretol but hospitalist recommends stopping tegretol and following sodium daily. Plan 12/14: hyponatremia not co-incident with tegretol administration. inadequately explained by mild hyperglycemia. continue presently Rxed psych meds. hospitalist consult for hyponatremia. 12/15: Hospitalist reviewed chart yesterday and suggested discontinuing tegretol and following sodium daily. Hold tegretol. 12/16: See hospitalist consult for hyponatremia and cough. 12/17: Na continues low at 126 after w/e without tegretol or zyprexa. pt had nml sodium 11/16, one day after starting tegretol during previous admission. she was discharged 11/21, prescribed the medication. she re-presented 12/12 with report of non-compliance with medication, negligible tegretol level, and sodium of 129. her tegretol was restarted evening of 12/13, daytime sodium of which was 130. sodium on 12/14 was 127. last dose of tegretol was given 12/15 morning. 12/16 sodium 126. on interview today pt reports excessive water consumption and h/o the same with h/o hyponatremia due to her potomania. low urine osmolality c/w that Dx. fluid restriction to 800 ml daily ordered. restart tegretol and zyprexa for treatment of roz. check sodium 11/7 a.m. . Reason for continued inpatient stay Substantial Risk for: inability to function Time Spent With Patient Time: Total time managing care of this patient today __35__ minutes.
[2022-12-17 20:55] VITALS: BP 110/61; PULSE 75; RESP 16; TEMP 36.3; O2SAT 99
[2022-12-17] MEDS: Melatonin 3 MG TABLET 9 MG PO (21:30)
[2022-12-17] MEDS: carBAMazepine ER 200 MG TAB.ER.12H 400 MG PO (21:30)
[2022-12-18 06:00] VITALS: BP 116/66; PULSE 83; TEMP 36; O2SAT 95
[2022-12-18] MEDS: guaiFEN/Codeine SF 200/20/10ML 10 ML LIQUID PO ×3 (07:07→21:23)
[2022-12-18] MEDS: Multivitamin TABLET 1 TAB PO (08:37)
[2022-12-18] MEDS: carvediloL 12.5 MG TABLET PO ×2 (08:38→20:48)
[2022-12-18] MEDS: carBAMazepine ER 200 MG TAB.ER.12H 400 MG PO ×2 (08:38→20:47)
--- NOTE | 2022-12-18 09:29 | P.PNPSI_ITS ---
Subjective Subjective Date of Service: 12/18/22 Reason For Visit: psychosis Subjective Notes: Conditional Voluntary Interim History: Pt presents as less labile, calmer. She reports she is doing better. She reports sleep is fair. She tells this press writer the month, year, date, and day even before she is asked these questions...stating see, I am fine! She denies SI/HI. She has been more visible on the unit, more appropriate in groups and in interactions with peers. Repeat labs- showed improvement in Na- she has been on fluid restriction of 800ml, which may be unsustainable once discharge. She may increase fluid restriction to 1000ml, may consider adding UREA 15grams daily with plan to follow up with PCP to recheck Na. Review of Systems Review of Systems Yes Unobtainable due to mental status Mental Status Exam Mental Status Exam Narrative: Pt is alert and oriented; behavior is disorganized; patient is not in distress; dressed in casual attire with unkempt hair but adequate hygiene; affect constricted, hyper-intense, labile; eye contact appropriate; Speech is pressured, verbose, rambling; moderate psychomotor agitation present; thought process disorganized, tangential; Thought content negative for notable paranoia or delusions. no SI/HI/AVH expressed. Patients insight and judgment impaired Diagnostics Vital Signs (24Hr): Vital Signs - 24 hr 12/17/22 20:55 12/18/22 06:00 Temperature 97.3 F 96.8 F Pulse Rate 75 83 Respiratory Rate 16 Blood Pressure 110/61 116/66 Pulse Oximetry 99 95 Oxygen Delivery Method Room Air Room Air BMI result Body Mass Index 24.8 Labs 12/12/22 14:56 12/18/22 09:58 Medications Medications Current Medications Acetaminophen (Acetaminophen 325 Mg Tablet) 650 mg PO Q6H PRN PRN Reason: Headache/Pain Mild Scale (1-3) Last Admin: 12/16/22 04:06 Dose: 650 mg Al Hydroxide/Mg Hydroxide (Magnesium Hydrox/Alum Hydrox 30 Ml Oral.Susp) 30 ml PO Q6H PRN PRN Reason: Heartburn/Nausea Carbamazepine (Carbamazepine Er 200 Mg Tab.Er.12h) 400 mg PO BID [facility] Last Admin: 12/18/22 08:38 Dose: 400 mg Carvedilol (Carvedilol 12.5 Mg Tablet) 12.5 mg PO BID [facility]; Protocol Last Admin: 12/18/22 08:38 Dose: 12.5 mg Guaifenesin/Codeine Phosphate (Guaifen/Codeine Sf 200/20/10ml 10 Ml Liquid) 10 ml PO Q6H PRN PRN Reason: Congestion Last Admin: 12/18/22 07:07 Dose: 10 ml Hydroxyzine HCl (Hydroxyzine Hcl 25 Mg Tablet) 25 mg PO Q6H PRN PRN Reason: Anxiety Last Admin: 12/13/22 23:27 Dose: 25 mg Lorazepam (Lorazepam 1 Mg Tablet) 2 mg PO Q4H PRN PRN Reason: agitation Last Admin: 12/17/22 21:36 Dose: 2 mg Magnesium Hydroxide (Milk Of Magnesia 30 Ml Oral.Susp) 30 ml PO DAILY PRN PRN Reason: Constipation Last Admin: 12/17/22 05:25 Dose: 30 ml Melatonin (Melatonin 3 Mg Tablet) 9 mg PO BEDTIME [facility] Last Admin: 12/17/22 21:30 Dose: 9 mg Multivitamins/Vitamin C (Multivitamin Tablet) 1 tab PO DAILY [facility] Last Admin: 12/18/22 08:37 Dose: 1 tab Olanzapine (Olanzapine 10 Mg Tablet) 20 mg PO BEDTIME [facility] Last Admin: 12/17/22 21:31 Dose: Not Given Pseudoephedrine HCl (Pseudoephedrine Hcl 30 Mg Tablet) 30 mg PO Q6H PRN PRN Reason: Congestion Last Admin: 12/16/22 17:34 Dose: 30 mg Trazodone HCl (Trazodone Hcl 50 Mg Tablet) 50 mg PO BEDTIME PRN PRN Reason: insomnia Allergies Allergies Allergy/AdvReac Type Severity Reaction Status Date / Time olanzapine AdvReac Severe visual Verified 12/06/22 11:36 changes divalproex sodium AdvReac Mild hyperammone Verified 12/14/22 15:42 [From Depakote] yoan Assessment & Plan Assessment & Plan (1) Bipolar I disorder: Status: Acute Code(s): F31.9 - Bipolar disorder, unspecified (2) Hyponatremia: Status: Acute Code(s): E87.1 - Hypo-osmolality and hyponatremia Assessment and Plan: Per Psych team, felt to not be related to tegretol but hospitalist recommends stopping tegretol and following sodium daily. Plan 12/14: hyponatremia not co-incident with tegretol administration. inadequately explained by mild hyperglycemia. continue presently Rxed psych meds. hospitalist consult for hyponatremia. 12/15: Hospitalist reviewed chart yesterday and suggested discontinuing tegretol and following sodium daily. Hold tegretol. 12/16: See hospitalist consult for hyponatremia and cough. 12/17: Na continues low at 126 after w/e without tegretol or zyprexa. pt had nml sodium 11/16, one day after starting tegretol during previous admission. she was discharged 11/21, prescribed the medication. she re-presented 12/12 with report of non-compliance with medication, negligible tegretol level, and sodium of 129. her tegretol was restarted evening of 12/13, daytime sodium of which was 130. sodium on 12/14 was 127. last dose of tegretol was given 12/15 morning. 12/16 sodium 126. on interview today pt reports excessive water consumption and h/o the same with h/o hyponatremia due to her potomania. low urine osmolality c/w that Dx. fluid restriction to 800 ml daily ordered. restart tegretol and zyprexa for treatment of rj. check sodium 12/18 a.m. 12/18 Repeat labs today- showed improvement in Na (134)- she has been on fluid restriction of 800ml, which may NOT be unsustainable once discharge. She may increase fluid restriction to 1000ml, may consider adding UREA 15grams daily with plan to follow up with PCP to recheck Na. Reason for continued inpatient stay Substantial Risk for: inability to function Time Spent With Patient Time: Total time managing care of this patient today ____ minutes.
[2022-12-18 10:42] LABS: Alanine Aminotransferase 24 U/L (0-31); Albumin Level 3.8 g/dL (3.5-5.0); Alkaline Phosphatase 71 U/L (39-117); Anion Gap 13 (12-20); Aspartate Amino Transferase 20 U/L (5-31); Bilirubin Total 0.1 mg/dL (0.0-1.0); Blood Urea Nitrogen 11 mg/dL (9-16); Calcium 9.3 mg/dL (8.4-10.2); Carbon Dioxide 26 mmol/L (22-29); Chloride 99 mmol/L (96-108); Creatinine Clr Calc Pharmacy 81.5; Estimated Glomerular Filt Rate > 60; Glucose Random 112 mg/dL (60-115); Osmolality, Serum 270 mosm/kg (281-305); Potassium 4.1 mmol/L (3.3-5.1); Sodium 134 mmol/L (135-145); Total Protein 6.6 g/dL (6.5-8.0)
[2022-12-18 12:29] LABS: Osmolality Urine 389 mosm/kg (373-1093)
[2022-12-18 20:25] VITALS: BP 165/74; PULSE 90; RESP 16; TEMP 36.2; O2SAT 98
[2022-12-18] MEDS: Melatonin 3 MG TABLET 9 MG PO (21:22)
[2022-12-19] MEDS: Pseudoephedrine HCL 30 MG TABLET PO (02:34)
[2022-12-19] MEDS: guaiFEN/Codeine SF 200/20/10ML 10 ML LIQUID PO (03:26)
[2022-12-19 06:00] VITALS: BP 156/82; PULSE 76; TEMP 36.1; O2SAT 97
[2022-12-19] MEDS: carBAMazepine ER 200 MG TAB.ER.12H 400 MG PO (08:26)
[2022-12-19] MEDS: Multivitamin TABLET 1 TAB PO (08:26)
[2022-12-19] MEDS: carvediloL 12.5 MG TABLET PO (08:27)
[2022-12-19 10:51] LABS: MANUAL DIFF FLAG NO
[2022-12-19 10:56] LABS: Basophils Absolute Auto 0.1 X10*3/uL (0.0-0.2); Basophils Percent Auto 1.1 % (0-2); Eosinophils Absolute Auto 0.1 X10*3/uL (0.0-0.4); Eosinophils Percent Auto 1.1 % (0-4); Hematocrit 34.3 % (37.0-47.0); Hemoglobin 11.6 g/dl (12.0-16.0); Imm Gran Abs Auto 0.06 X10*3/uL (0.00-0.03); Imm Gran Pct Auto 0.6 % (0.0-0.4); Lymphocytes Absolute Auto 1.6 X10*3/uL (1.2-4.9); Lymphocytes Percent Auto 16.6 % (20-40); Mean Corpuscular HGB Conc 33.8 g/dl (31.0-35.0); Mean Corpuscular Hemoglobin 30.3 pg (27.0-33.0); Mean Corpuscular Volume 89.6 fL (80.0-98.0); Mean Platelet Volume 8.9 fL (9.4-12.3); Monocytes Absolute Auto 0.4 X10*3/uL (0.1-1.2); Monocytes Percent Auto 4.4 % (2-11); Neutrophils Absolute Auto 7.2 x10*3/uL (2.0-8.3); Neutrophils Percent Auto 76.2 % (45-73); Platelet Count 367 X10*3/uL (160-400); Red Blood Count 3.83 X10*6/uL (4.20-5.50); Red Cell Distribution Width 12.9 % (11.0-16.0); White Blood Count 9.4 X10*3/uL (4.8-10.8)
[2022-12-19 11:16] LABS: Carbamazepine Tegretol 9.8 mcg/mL (5.0-12.0)
[2022-12-19 11:18] LABS: Alanine Aminotransferase 24 U/L (0-31); Alkaline Phosphatase 67 U/L (39-117); Anion Gap 13 (12-20); Aspartate Amino Transferase 18 U/L (5-31); Bilirubin Direct < 0.2 mg/dL (0.0-0.5); Bilirubin Total 0.2 mg/dL (0.0-1.0); Blood Urea Nitrogen 10 mg/dL (9-16); Calcium 9.4 mg/dL (8.4-10.2); Carbon Dioxide 24 mmol/L (22-29); Chloride 102 mmol/L (96-108); Creatinine Clr Calc Pharmacy 81.5; Estimated Glomerular Filt Rate > 60; Glucose Random 102 mg/dL (60-115); Potassium 4.2 mmol/L (3.3-5.1); Sodium 135 mmol/L (135-145); Total Protein 6.8 g/dL (6.5-8.0)
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
== END 2022-12-19 13:58 | disposition home or self-care (01) | DRG 885 ==
LOC: HO.ED 16:36 → HO.PADLT16 12-13 21:04
PROVIDERS: Psychiatry & Neurology Psychiatry; Social Worker; Student in an Organized Health Care Education/Training Program; Admitting Provider Psychiatry & Neurology Psychiatry; Emergency Provider Emergency Medicine Emergency Medical Services; Visit Provider Psychiatry & Neurology Psychiatry
DX: F31.10 Bipolar disorder, current episode manic without psychotic features, unspecified (principal); E87.1 Hypo-osmolality and hyponatremia; T42.1X5A Adverse effect of iminostilbenes, initial encounter; Z20.822 Contact with and (suspected) exposure to COVID-19; Z87.891 Personal history of nicotine dependence; Z79.899 Other long term (current) drug therapy
CPT/HCPCS: 36415; 80048; 80053; 80061; 80076; 80156; 80307; 81001; 82607; 82746; 83036; 83930; 83935; 84300; 84443; 85025; 87635; 93005; 99285; J1200; J2060

== ENCOUNTER → 2022-12-13 20:46 | Outpatient (BNV) | payer OTHER, SELFPAY | PROVIDERS: Admitting Provider Psychiatry & Neurology Psychiatry; Emergency Provider Emergency Medicine Emergency Medical Services; Visit Provider Psychiatry & Neurology Psychiatry | DX: F31.13 Bipolar disorder, current episode manic without psychotic features, severe (principal); E87.1 Hypo-osmolality and hyponatremia | CPT/HCPCS: 90792; 99231; 99232; 99239 ==

== ENCOUNTER 2022-12-20 13:41 | Outpatient (REF) | payer OTHER, SELFPAY ==
--- NOTE | ~2022-12-20 | US_ITS ---
EXAMINATION: MM DIAGNOSTIC DIGITAL BREAST TOMOSYNTHESIS, LEFT US BREAST LIMITED, LEFT MAMMOGRAPHY: CLINICAL INFORMATION: Evaluate calcifications seen on screening exam. COMPARISON: Mammography: 11/01/2022. TECHNIQUE: Digital breast tomosynthesis is performed in the following views: 2-D left magnification views CC and ML projections x2. FINDINGS: There are scattered areas of fibroglandular density (ACR BI-RADS breast composition Category b). There is a tiny grouping of calcifications in the slightly inferior far lateral left breast, mid to anterior one third, which have a benign appearance and are predominantly punctate without branching or linear forms. Minimal pleomorphism. No abnormal distribution. These are probably benign. In addition, there is a nodular abnormality in the slightly inferior medial left breast, mid to posterior one third, for which ultrasound will be performed. ULTRASOUND: CLINICAL INFORMATION: Evaluate nodular abnormality in the slightly inferior medial left breast. COMPARISON: Mammography dated same day. TECHNIQUE: Targeted sonographic evaluation was performed using a high frequency linear transducer. Selected archived documentation. FINDINGS: LEFT BREAST: Left breast was scanned from the 4:00 to 8:00 axis. There is a mixture of fatty and fibroglandular tissue. No suspicious mass is seen. There is no pathologic acoustic shadowing. There is no cystic abnormality. There is no edema within the soft tissue planes. There is no correlate to the mammographic abnormality. US/US breast LT limited IMPRESSION: Probably benign calcifications in the left breast lateral slightly inferior aspect for which six-month interval follow-up is recommended to include standard CC and ML magnification views. Focal nodular asymmetry has no mammographic correlate, is probably benign and six-month follow-up recommended to be included on the standard magnification views. OVERALL ASSESSMENT: Mammography: BI-RADS 3 - Probably benign finding(s) - 6 month follow-up suggested Ultrasound: BI-RADS 3 - Probably benign finding(s) - 6 month follow-up suggested RECOMMENDATION: 6 Month F/U This patient's information was entered into a reminder system with a target due date for their next mammogram.
== END 2022-12-20 13:42 | disposition home or self-care (01) ==
LOC: HO.MAMMO 13:41
PROVIDERS: Visit Provider Internal Medicine
DX: R92.1 Mammographic calcification found on diagnostic imaging of breast (principal)
CPT/HCPCS: 76642; 77065

== ENCOUNTER → 2022-12-20 14:00 | Outpatient (BNV) | payer OTHER, SELFPAY | PROVIDERS: Visit Provider Radiology Diagnostic Radiology | DX: R92.1 Mammographic calcification found on diagnostic imaging of breast (principal) | CPT/HCPCS: 77061; 77065 ==

== ENCOUNTER 2022-12-26 15:42 | Inpatient (IN) | payer OTHER, SELFPAY ==
--- NOTE | 2022-12-26 15:51 | MHC.CARE ---
Call from [facility] clinician, Na Lacey, who evaluated patient and asked to have it noted that patient's living situation is not sustainable her brother is unable to manage.
--- NOTE | 2022-12-26 16:02 | PHA.MEDREC ---
Addendum entered by Gianna Hallman RPh 12/27/22 08:14: Noticed olanzapine was on med rec but there is a documented allergy, reached out to RN to ask patient. Patient is not on olanzapine due to visual changes. Original Note: Pharmacy Consult ? Medication Reconciliation Pharmacy has completed the medication reconciliation. Patient recently discharge from on 12/19, utilized discharge summary for med rec. Laya BaltazarD
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
[2022-12-26] MEDS: Haloperidol Lactate 5 MG/ML VIAL 2 MG IM (16:57)
[2022-12-26] MEDS: LORazepam 2 MG/ML VIAL IM (16:57)
[2022-12-26 17:36] VITALS: BP 200/132; PULSE 112; PULSE 120; RESP 20; TEMP 36.4; O2SAT 96; O2SAT 99; BMI 24.0
[2022-12-26 17:49] LABS: Appearance Urine Clear; Color Urine Yellow; Glucose Urine UA Negative (Negative); Leukocyte Esterase Urine Negative (Negative); Nitrite Urine Negative (Negative); PH 7.5 (5.0-9.0); Specific Gravity - Urine <= 1.005 (1.005-1.025); Urine Blood Negative (Negative); Urine Ketones Negative (Negative); Urine Protein Negative (Neg-Trace)
[2022-12-26 17:55] LABS: Amphetamine Screen Urine Not Detected (Not Detect); Barbiturates, Urine Not Detected (Not Detect); Benzodiazepines Screen Urine Not Detected (Not Detect); Cannabinoid Screen Urine POSITIVE (Not Detect); Cocaine Screen Urine Not Detected (Not Detect); Fentanyl, urine Not Detected (Not Detect); Opiate Screen Urine Not Detected (Not Detect); Phencyclidine Screen Urine Not Detected (Not Detect)
[2022-12-26 18:23] LABS: MANUAL DIFF FLAG NO
[2022-12-26 18:26] VITALS: BP 102/55; PULSE 93; RESP 18; O2SAT 97
[2022-12-26 18:42] LABS: Alanine Aminotransferase 22 U/L (0-31); Alkaline Phosphatase 63 U/L (39-117); Anion Gap 12 (12-20); Aspartate Amino Transferase 21 U/L (5-31); Bilirubin Total 0.2 mg/dL (0.0-1.0); Blood Urea Nitrogen 8 mg/dL (9-16); Calcium 8.9 mg/dL (8.4-10.2); Carbon Dioxide 25 mmol/L (22-29); Chloride 96 mmol/L (96-108); Estimated Glomerular Filt Rate > 60; Ethanol < 10 mg/dL; Glucose Random 173 mg/dL (60-115); Potassium 3.9 mmol/L (3.3-5.1); Sodium 129 mmol/L (135-145); Total Protein 6.7 g/dL (6.5-8.0)
[2022-12-26 18:47] LABS: Basophils Percent Auto 0.5 % (0-2); Eosinophils Percent Auto 0.2 % (0-4); Hematocrit 33.9 % (37.0-47.0); Imm Gran Pct Auto 1.2 % (0.0-0.4); Lymphocytes Absolute Auto 1.1 X10*3/uL (1.2-4.9); Mean Corpuscular HGB Conc 35.4 g/dl (31.0-35.0); Mean Corpuscular Hemoglobin 30.8 pg (27.0-33.0); Mean Corpuscular Volume 87.1 fL (80.0-98.0); Mean Platelet Volume 9.3 fL (9.4-12.3); Monocytes Absolute Auto 0.3 X10*3/uL (0.1-1.2); Neutrophils Absolute Auto 6.7 x10*3/uL (2.0-8.3); Neutrophils Percent Auto 81.1 % (45-73); Platelet Count 318 X10*3/uL (160-400); Red Blood Count 3.89 X10*6/uL (4.20-5.50); Red Cell Distribution Width 12.9 % (11.0-16.0); White Blood Count 8.3 X10*3/uL (4.8-10.8)
[2022-12-26 18:52] LABS: Carbamazepine Tegretol 6.5 mcg/mL (5.0-12.0)
--- NOTE | 2022-12-27 00:38 | PC.NURSE ---
Pt ambulated to the restroom with a steady gait.
--- NOTE | 2022-12-27 06:05 | PC.NURSE ---
Pt ambulated to the restroom with a steady gait. Pt requested and given remote. Pt requested and given water. Plan of care ongoing.
--- NOTE | 2022-12-27 06:40 | PC.NURSE ---
Pt requested and given ice water.
[2022-12-27 07:56] VITALS: BP 122/74; PULSE 80; RESP 12; TEMP 36.6; O2SAT 98
[2022-12-27 08:31] LABS: Anion Gap 11 (12-20); Blood Urea Nitrogen 10 mg/dL (9-16); Calcium 8.9 mg/dL (8.4-10.2); Carbon Dioxide 29 mmol/L (22-29); Chloride 96 mmol/L (96-108); Creatinine Clr Calc Pharmacy 79.3; Estimated Glomerular Filt Rate > 60; Glucose Random 114 mg/dL (60-115); Sodium 132 mmol/L (135-145)
--- NOTE | 2022-12-27 08:49 | ECG_ITS ---
Test Reason : med clearance Blood Pressure : / mmHG Vent. Rate : 065 BPM Atrial Rate : 065 BPM P-R Int : 168 ms QRS Dur : 082 ms QT Int : 392 ms P-R-T Axes : 066 031 052 degrees QTc Int : 407 ms Normal sinus rhythm Low voltage QRS Normal ECG When compared with ECG of 13-DEC-2022 07:34, No significant change was found Referred By: Generic ED Physician Electronically Signed By:LUIS MAS MD
[2022-12-27] MEDS: carBAMazepine ER 200 MG TAB.ER.12H 400 MG PO ×2 (08:57→20:57)
[2022-12-27] MEDS: carvediloL 12.5 MG TABLET PO ×2 (08:57→20:56)
[2022-12-27 11:18] LABS: COVID-19 Test Negative (Negative); IDNOW Serial# BCCEAD1C
--- NOTE | 2022-12-27 15:02 | PC.NURSE ---
patient alert and oriented and able to make needs known. Patient advocating for inpatient stay on M3. No SI/HI/AH/VH. patient brought up to m3 by wheelchair with m3 staff and security.
[2022-12-27 15:18] VITALS: BP 145/71; PULSE 80; RESP 20; TEMP 36.2; O2SAT 97
[2022-12-27 15:19] VITALS: BMI 21.7
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
[2022-12-27 20:45] VITALS: BP 151/74; PULSE 72; RESP 18; TEMP 36.1; O2SAT 98
[2022-12-27] MEDS: Melatonin 3 MG TABLET 9 MG PO (20:57)
[2022-12-27] MEDS: LORazepam 0.5 MG TABLET PO (23:00)
[2022-12-27] MEDS: HaloperidoL 1 MG TABLET 2 MG PO (23:36)
[2022-12-28 08:06] VITALS: BP 150/78; PULSE 76; RESP 18; TEMP 36.1; O2SAT 95
[2022-12-28 08:54] LABS: Anion Gap 12 (12-20); Blood Urea Nitrogen 9 mg/dL (9-16); Calcium 9.3 mg/dL (8.4-10.2); Carbon Dioxide 25 mmol/L (22-29); Chloride 100 mmol/L (96-108); Creatinine Clr Calc Pharmacy 78.1; Estimated Glomerular Filt Rate > 60; Glucose Random 130 mg/dL (60-115); Potassium 4.2 mmol/L (3.3-5.1); Sodium 133 mmol/L (135-145)
[2022-12-28] MEDS: carvediloL 12.5 MG TABLET PO ×2 (09:05→20:58)
[2022-12-28] MEDS: carBAMazepine ER 200 MG TAB.ER.12H 400 MG PO ×2 (09:05→20:55)
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
[2022-12-28] MEDS: chlorproMAZINE HCl 25 MG TABLET 50 MG PO ×2 (15:37→20:57)
[2022-12-28 19:40] VITALS: BP 131/78; PULSE 97; RESP 16; TEMP 36.2; O2SAT 98
[2022-12-28] MEDS: Melatonin 3 MG TABLET 9 MG PO (20:56)
[2022-12-28] MEDS: guaiFENesin DM 200/20/10 ML 10 ML SYRUP PO (21:22)
[2022-12-29] MEDS: carBAMazepine ER 200 MG TAB.ER.12H 400 MG PO ×2 (08:52→21:08)
[2022-12-29] MEDS: chlorproMAZINE HCl 25 MG TABLET 50 MG PO (08:52)
[2022-12-29] MEDS: carvediloL 12.5 MG TABLET PO ×2 (08:52→21:08)
[2022-12-29 09:07] VITALS: BP 161/69; PULSE 79; TEMP 36; O2SAT 99
--- NOTE | 2022-12-29 17:27 | HO.PSYCHPN ---
Subjective Subjective Date of Service: 12/29/22 Reason For Visit: dysregulated Interim History: Patient seen and discussed with RN. Patient is manic and hyperverbal. She continues disorganized. She is pressured. She reports that she isn't taking medications because they cause blurred vision. I refuse to take it. She has racing thoughts. She perseverates on getting dental floss. Her brother was visiting and she was looking through the door glass as he was coming in and was asking for denture glue. Review of Systems Review of Systems Yes all other systems are reviewed and are negative Mental Status Exam Mental Status Exam Narrative: Pt is alert and oriented; behavior is manic, disorganized; patient is not in distress; dressed in casual attire with unkempt hair but adequate hygiene; mood is described as ok and affect constricted; eye contact appropriate; Speech is pressured, verbose, rambling; normal volume; moderate psychomotor agitation present; thought process briefly goal directed, but otherwise circumstantial and tangential; Thought content perseverative on annoying aspects of her brother;... denies any SI/HI. Patient seems internally preoccupied; Patients insight and judgment impaired Diagnostics Vital Signs (24Hr): Vital Signs - 24 hr 12/28/22 19:40 12/29/22 09:07 Temperature 97.2 F 96.8 F Pulse Rate 97 79 Respiratory Rate 16 Blood Pressure 131/78 161/69 H Pulse Oximetry 98 99 Oxygen Delivery Method Room Air Room Air BMI result Body Mass Index 21.7 Labs 12/26/22 18:17 12/28/22 08:33 Labs: Laboratory Results - last 48 hr 12/28/22 08:33 Sodium 133 L Potassium 4.2 Chloride 100 Carbon Dioxide 25 Anion Gap 12 BUN 9 Creatinine 0.68 Estim Creat Clear Calc 78.1 Estimated GFR > 60 Random Glucose 130 H Calcium 9.3 Medications Medications Current Medications Acetaminophen (Acetaminophen 325 Mg Tablet) 650 mg PO Q6H PRN PRN Reason: Headache/Pain Mild Scale (1-3) Al Hydroxide/Mg Hydroxide (Magnesium Hydrox/Alum Hydrox 30 Ml Oral.Susp) 30 ml PO Q6H PRN PRN Reason: Heartburn/Nausea Carbamazepine (Carbamazepine Er 200 Mg Tab.Er.12h) 400 mg PO BID ADAN Last Admin: 12/29/22 08:52 Dose: 400 mg Carvedilol (Carvedilol 12.5 Mg Tablet) 12.5 mg PO Q12H [facility]; Protocol Last Admin: 12/29/22 08:52 Dose: 12.5 mg Chlorpromazine HCl (Chlorpromazine Hcl 25 Mg Tablet) 50 mg PO TID [facility] Last Admin: 12/29/22 14:20 Dose: Not Given Guaifenesin (Guaifenesin 100 Mg/5 Ml Liquid) 5 ml PO Q6H PRN PRN Reason: cough/congestion Guaifenesin/Dextromethorphan (Guaifenesin Dm 200/20/10 Ml 10 Ml Syrup) 10 ml PO Q6H PRN PRN Reason: cough Last Admin: 12/28/22 21:22 Dose: 10 ml Haloperidol (Haloperidol 1 Mg Tablet) 2 mg PO TID PRN PRN Reason: agitation Last Admin: 12/27/22 23:36 Dose: 2 mg Hydroxyzine HCl (Hydroxyzine Hcl 25 Mg Tablet) 25 mg PO Q6H PRN PRN Reason: Anxiety Lorazepam (Lorazepam 1 Mg Tablet) 1 mg PO TID PRN PRN Reason: agitation Magnesium Hydroxide (Milk Of Magnesia 30 Ml Oral.Susp) 30 ml PO DAILY PRN PRN Reason: Constipation Melatonin (Melatonin 3 Mg Tablet) 9 mg PO BEDTIME [facility] Last Admin: 12/28/22 20:56 Dose: 9 mg Nicotine (Nicotine 21 Mg Patch.Td24) 21 mg TRANSDERMA DAILY PRN PRN Reason: smoking cessation Nicotine Polacrilex (Nicotine Polacrilex 2 Mg Gum) 4 mg BUCCAL Q2H PRN PRN Reason: Nicotine Cravings Trazodone HCl (Trazodone Hcl 50 Mg Tablet) 50 mg PO BEDTIME MRX1 PRN PRN Reason: Insomnia Trazodone HCl (Trazodone Hcl 50 Mg Tablet) 50 mg PO BEDTIME PRN PRN Reason: insomnia Zolpidem Tartrate (Zolpidem Tartrate 5 Mg Tablet) 5 mg PO BEDTIME PRN PRN Reason: Insomnia Allergies Allergies Allergy/AdvReac Type Severity Reaction Status Date / Time olanzapine AdvReac Severe visual Verified 12/06/22 11:36 changes divalproex sodium AdvReac Mild hyperammone Verified 12/14/22 15:42 [From Depakote] yoan Assessment & Plan Assessment & Plan (1) Bipolar disorder: Status: Acute Code(s): F31.9 - Bipolar disorder, unspecified (2) PTSD (post-traumatic stress disorder): Status: Acute Code(s): F43.10 - Post-traumatic stress disorder, unspecified (3) History of psychogenic nonepileptic seizure: Status: Chronic Code(s): Z87.898 - Personal history of other specified conditions Plan Patient is a 62-year-old female with history of bipolar 1 disorder, PTSD, nonepileptic seizures, who presents for her 3rd psychiatric admission in the past 1.5 months for manic and disorganized behavior. Patient is a limited historian and has poor insight into her behaviors. Patient is currently manic, with pressured speech. Patient reports that she has not been sleeping saying I have been up all day and all night for many days now... She is perseverative on her annoyed feelings towards her brother and says that he treats me like dog poop... Patient rambling, difficult to interrupt, circumstantial and tangential. Patient agrees to continue with Tegretol but does not want Zyprexa saying it causes blurry vision and makes her drowsy. She does however agreed to take Thorazine, saying she wants to sleep in will take anything that will help her sleep. Impression/Plan: Patient continues to be non adherent with medications post discharge, quickly decompensating and coming back to the hospital. She agrees to get back on Tegretol which has been restarted. She also agrees to taking Thorazine which is ordered t.i.d.. 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 Currently patient is refusing to go back and live with her brother however typically once she stabilizes she agrees to return. Plan: CV Q 15 minute checks Tegretol 400 mg b.i.d. Will get labs to measure level Starting Thorazine 50 mg t.i.d. for agitation Will restart Ambien 5 mg q.h.s. as a p.r.n.; previous admission patient was on 10 mg which helped her sleep; however last admission it was discontinued. 12/29: Continue current management and treatment plan. Reason for continued inpatient stay Substantial Risk for: inability to function and rapid decompensation Time Spent With Patient Time: Total time managing care of this patient today ____ minutes.
[2022-12-29 20:05] VITALS: BP 165/83; PULSE 96; RESP 16; TEMP 36.3; O2SAT 98
[2022-12-29] MEDS: Melatonin 3 MG TABLET 9 MG PO (21:07)
[2022-12-29] MEDS: Zolpidem Tartrate 5 MG TABLET PO (21:25)
[2022-12-30] MEDS: HaloperidoL 1 MG TABLET 2 MG PO ×2 (02:30→09:05)
[2022-12-30] MEDS: LORazepam 1 MG TABLET PO ×2 (02:30→09:05)
--- NOTE | 2022-12-30 02:39 | PC.NURSE ---
rj-patient is in constant dialogue. she over talks others, becomes louder when environment is loud. displays no ability to stop her talking, flight of ideas. she reports she is tired, reports she is willing to take PRNs but cannot stop talking. she dialogues when no one is present, she is intrusive verbally to others. she repeats her statements over and over. agitation is increasing with her level of fatigue.
--- NOTE | 2022-12-30 03:26 | PC.NURSE ---
patient shows little effect to PRN haldol 2mg and ativan 1 mg. is in sensory room and continues with loud voice in self dialogue. more agitation is noted in tone. patient has not been able to stop talking for over 2 hours. she is complaining of a sore throat, mucous membranes are dry and sticky. reports she feels SOB. racing thoughts. tangential, flight of ideas. no sense of relief from distress, is caught in a cycle of dialogue.
[2022-12-30] MEDS: LORazepam 1 MG TABLET 2 MG PO (03:54)
[2022-12-30 04:00] VITALS: BP 177/90; PULSE 110; RESP 16; TEMP 36.8; O2SAT 96
[2022-12-30 04:30] VITALS: BP 147/90; TEMP 43.8; O2SAT 95
--- NOTE | 2022-12-30 05:17 | PC.NURSE ---
patient had good response to ativan 2 mg and is currently sleeping.
--- NOTE | 2022-12-30 05:32 | PC.NURSE ---
Visible in the milieu, delusional, paranoid, talkative, rude and yelling at night. She is exhibiting hyper manic behavior and unable to sleep all night. PRN Meds Haldol 2mg and Ativan 1mg was given with no calm effect. Repeat dose of Ativan 2mg was administered with delay effect.
[2022-12-30 08:55] VITALS: BP 123/69; PULSE 93; RESP 20; TEMP 36.4; O2SAT 99
[2022-12-30] MEDS: carBAMazepine ER 200 MG TAB.ER.12H 400 MG PO ×2 (09:04→21:13)
[2022-12-30] MEDS: carvediloL 12.5 MG TABLET PO ×2 (09:04→21:13)
[2022-12-30] MEDS: Perphenazine 2 MG TABLET PO ×2 (14:40→21:13)
--- NOTE | 2022-12-30 16:06 | HO.PSYCHPN ---
Subjective Subjective Date of Service: 12/30/22 Reason For Visit: dysregulated Interim History: Patient seen and discussed with RN. Patient didn't sleep last night until 2-3 AM. She needed a dose of Lorazepam. She has not been taking Thorazine because of blurred vision. Compliant with Tegretol. She agrees to Trilafon but if I get blurry vision I won't take it. No SI. Patient continues manic and hyperverbal. She continues disorganized. She recognizes she has racing thoughts. Review of Systems Review of Systems Yes all other systems are reviewed and are negative Mental Status Exam Mental Status Exam Narrative: Pt is alert and oriented; behavior is manic, disorganized; patient is not in distress; dressed in casual attire with unkempt hair but adequate hygiene; mood is described as ok and affect constricted; eye contact appropriate; Speech is pressured, verbose, rambling; normal volume; moderate psychomotor agitation present; thought process briefly goal directed, but otherwise circumstantial and tangential; Thought content perseverative on annoying aspects of her brother;... denies any SI/HI. Patient seems internally preoccupied; Patients insight and judgment impaired Diagnostics Vital Signs (24Hr): Vital Signs - 24 hr 12/29/22 20:05 12/30/22 04:00 12/30/22 04:30 Temperature 97.3 F 98.2 F 111 F H Pulse Rate 96 110 H Respiratory Rate 16 16 Blood Pressure 165/83 H 177/90 H 147/90 H Pulse Oximetry 98 96 95 Oxygen Delivery Method Room Air Room Air Room Air 12/30/22 08:55 Temperature 97.6 F Pulse Rate 93 Respiratory Rate 20 Blood Pressure 123/69 Pulse Oximetry 99 Oxygen Delivery Method Room Air BMI result Body Mass Index 21.7 Labs 12/26/22 18:17 12/28/22 08:33 Medications Medications Current Medications Acetaminophen (Acetaminophen 325 Mg Tablet) 650 mg PO Q6H PRN PRN Reason: Headache/Pain Mild Scale (1-3) Al Hydroxide/Mg Hydroxide (Magnesium Hydrox/Alum Hydrox 30 Ml Oral.Susp) 30 ml PO Q6H PRN PRN Reason: Heartburn/Nausea Carbamazepine (Carbamazepine Er 200 Mg Tab.Er.12h) 400 mg PO BID ADAN Last Admin: 12/30/22 09:04 Dose: 400 mg Carvedilol (Carvedilol 12.5 Mg Tablet) 12.5 mg PO Q12H [facility]; Protocol Last Admin: 12/30/22 09:04 Dose: 12.5 mg Guaifenesin (Guaifenesin 100 Mg/5 Ml Liquid) 5 ml PO Q6H PRN PRN Reason: cough/congestion Guaifenesin/Dextromethorphan (Guaifenesin Dm 200/20/10 Ml 10 Ml Syrup) 10 ml PO Q6H PRN PRN Reason: cough Last Admin: 12/28/22 21:22 Dose: 10 ml Haloperidol (Haloperidol 5 Mg Tablet) 5 mg PO TID PRN PRN Reason: agitation Hydroxyzine HCl (Hydroxyzine Hcl 25 Mg Tablet) 25 mg PO Q6H PRN PRN Reason: Anxiety Lorazepam (Lorazepam 1 Mg Tablet) 1 mg PO TID PRN PRN Reason: agitation Last Admin: 12/30/22 09:05 Dose: 1 mg Magnesium Hydroxide (Milk Of Magnesia 30 Ml Oral.Susp) 30 ml PO DAILY PRN PRN Reason: Constipation Melatonin (Melatonin 3 Mg Tablet) 9 mg PO BEDTIME ADAN Last Admin: 12/29/22 21:07 Dose: 9 mg Nicotine (Nicotine 21 Mg Patch.Td24) 21 mg TRANSDERMA DAILY PRN PRN Reason: smoking cessation Nicotine Polacrilex (Nicotine Polacrilex 2 Mg Gum) 4 mg BUCCAL Q2H PRN PRN Reason: Nicotine Cravings Perphenazine (Perphenazine 2 Mg Tablet) 2 mg PO TID ADAN Last Admin: 12/30/22 14:40 Dose: 2 mg Trazodone HCl (Trazodone Hcl 50 Mg Tablet) 50 mg PO BEDTIME MRX1 PRN PRN Reason: Insomnia Trazodone HCl (Trazodone Hcl 50 Mg Tablet) 50 mg PO BEDTIME PRN PRN Reason: insomnia Zolpidem Tartrate (Zolpidem Tartrate 5 Mg Tablet) 5 mg PO BEDTIME PRN PRN Reason: Insomnia Last Admin: 12/29/22 21:25 Dose: 5 mg Allergies Allergies Allergy/AdvReac Type Severity Reaction Status Date / Time olanzapine AdvReac Severe visual Verified 12/06/22 11:36 changes divalproex sodium AdvReac Mild hyperammone Verified 12/14/22 15:42 [From Depakote] yoan Assessment & Plan Assessment & Plan (1) Bipolar disorder: Status: Acute Code(s): F31.9 - Bipolar disorder, unspecified (2) PTSD (post-traumatic stress disorder): Status: Acute Code(s): F43.10 - Post-traumatic stress disorder, unspecified (3) History of psychogenic nonepileptic seizure: Status: Chronic Code(s): Z87.898 - Personal history of other specified conditions Plan Patient is a 62-year-old female with history of bipolar 1 disorder, PTSD, nonepileptic seizures, who presents for her 3rd psychiatric admission in the past 1.5 months for manic and disorganized behavior. Patient is a limited historian and has poor insight into her behaviors. Patient is currently manic, with pressured speech. Patient reports that she has not been sleeping saying I have been up all day and all night for many days now... She is perseverative on her annoyed feelings towards her brother and says that he treats me like dog poop... Patient rambling, difficult to interrupt, circumstantial and tangential. Patient agrees to continue with Tegretol but does not want Zyprexa saying it causes blurry vision and makes her drowsy. She does however agreed to take Thorazine, saying she wants to sleep in will take anything that will help her sleep. Impression/Plan: Patient continues to be non adherent with medications post discharge, quickly decompensating and coming back to the hospital. She agrees to get back on Tegretol which has been restarted. She also agrees to taking Thorazine which is ordered t.i.d.. 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 Currently patient is refusing to go back and live with her brother however typically once she stabilizes she agrees to return. Plan: CV Q 15 minute checks Tegretol 400 mg b.i.d. Will get labs to measure level Starting Thorazine 50 mg t.i.d. for agitation Will restart Ambien 5 mg q.h.s. as a p.r.n.; previous admission patient was on 10 mg which helped her sleep; however last admission it was discontinued. 12/29: Continue current management and treatment plan. 03/01: Start Trilafon 2 mg TID instead of Thorazine. Continue Tegretol. Reason for continued inpatient stay Substantial Risk for: inability to function and rapid decompensation Time Spent With Patient Time: Total time managing care of this patient today ____ minutes.
[2022-12-30 21:05] VITALS: BP 114/65; PULSE 80; RESP 18; TEMP 36.1; O2SAT 97
[2022-12-30] MEDS: Melatonin 3 MG TABLET 9 MG PO (21:13)
[2022-12-30] MEDS: Zolpidem Tartrate 5 MG TABLET PO (21:25)
[2022-12-31 07:10] VITALS: BP 129/71; PULSE 72; RESP 16; TEMP 35.9; O2SAT 99
[2022-12-31] MEDS: carBAMazepine ER 200 MG TAB.ER.12H 400 MG PO ×2 (09:09→21:22)
[2022-12-31] MEDS: carvediloL 12.5 MG TABLET PO ×2 (09:10→21:21)
[2022-12-31] MEDS: Perphenazine 2 MG TABLET PO ×2 (09:10→21:21)
[2022-12-31] MEDS: Acetaminophen 325 MG TABLET 650 MG PO (10:01)
--- NOTE | 2022-12-31 16:20 | P.PNPSI_ITS ---
Subjective Subjective Date of Service: 12/31/22 Reason For Visit: dysregulated Interim History: more calm and less irritable than last week. asking about discharge weds, when her 3-day notice is up. MD informs her if nothing changes she will be discharged weds. per staff, manic, withdrawn. taking medications. pressured. yelling about her brother being in control of her. Mental Status Exam Mental Status Exam Narrative: Pt is alert and oriented; no PMA/PMR; patient is not in distress; dressed in casual attire with adequate hygiene; affect flexible, normo-intense, non-labile; eye contact appropriate; Speech is quite verbose; thought process more organized, less tangential; Thought content negative for notable paranoia or delusions. no SI/HI/AVH expressed. Patients insight and judgment impaired Diagnostics Vital Signs (24Hr): Vital Signs - 24 hr 12/30/22 21:05 12/31/22 07:10 Temperature 97.0 F 96.6 F L Pulse Rate 80 72 Respiratory Rate 18 16 Blood Pressure 114/65 129/71 Pulse Oximetry 97 99 Oxygen Delivery Method Room Air Room Air BMI result Body Mass Index 21.7 Labs 12/26/22 18:17 12/28/22 08:33 Medications Medications Current Medications Acetaminophen (Acetaminophen 325 Mg Tablet) 650 mg PO Q6H PRN PRN Reason: Headache/Pain Mild Scale (1-3) Last Admin: 12/31/22 10:01 Dose: 650 mg Al Hydroxide/Mg Hydroxide (Magnesium Hydrox/Alum Hydrox 30 Ml Oral.Susp) 30 ml PO Q6H PRN PRN Reason: Heartburn/Nausea Carbamazepine (Carbamazepine Er 200 Mg Tab.Er.12h) 400 mg PO BID ADAN Last Admin: 12/31/22 09:09 Dose: 400 mg Carvedilol (Carvedilol 12.5 Mg Tablet) 12.5 mg PO Q12H [facility]; Protocol Last Admin: 12/31/22 09:10 Dose: 12.5 mg Guaifenesin (Guaifenesin 100 Mg/5 Ml Liquid) 5 ml PO Q6H PRN PRN Reason: cough/congestion Guaifenesin/Dextromethorphan (Guaifenesin Dm 200/20/10 Ml 10 Ml Syrup) 10 ml PO Q6H PRN PRN Reason: cough Last Admin: 12/28/22 21:22 Dose: 10 ml Haloperidol (Haloperidol 5 Mg Tablet) 5 mg PO TID PRN PRN Reason: agitation Hydroxyzine HCl (Hydroxyzine Hcl 25 Mg Tablet) 25 mg PO Q6H PRN PRN Reason: Anxiety Lorazepam (Lorazepam 1 Mg Tablet) 1 mg PO TID PRN PRN Reason: agitation Last Admin: 12/30/22 09:05 Dose: 1 mg Magnesium Hydroxide (Milk Of Magnesia 30 Ml Oral.Susp) 30 ml PO DAILY PRN PRN Reason: Constipation Melatonin (Melatonin 3 Mg Tablet) 9 mg PO BEDTIME ADAN Last Admin: 12/30/22 21:13 Dose: 9 mg Nicotine (Nicotine 21 Mg Patch.Td24) 21 mg TRANSDERMA DAILY PRN PRN Reason: smoking cessation Nicotine Polacrilex (Nicotine Polacrilex 2 Mg Gum) 4 mg BUCCAL Q2H PRN PRN Reason: Nicotine Cravings Perphenazine (Perphenazine 2 Mg Tablet) 2 mg PO TID [facility] Last Admin: 12/31/22 15:03 Dose: Not Given Trazodone HCl (Trazodone Hcl 50 Mg Tablet) 50 mg PO BEDTIME MRX1 PRN PRN Reason: Insomnia Trazodone HCl (Trazodone Hcl 50 Mg Tablet) 50 mg PO BEDTIME PRN PRN Reason: insomnia Zolpidem Tartrate (Zolpidem Tartrate 5 Mg Tablet) 5 mg PO BEDTIME PRN PRN Reason: Insomnia Last Admin: 12/30/22 21:25 Dose: 5 mg Allergies Allergies Allergy/AdvReac Type Severity Reaction Status Date / Time olanzapine AdvReac Severe visual Verified 12/06/22 11:36 changes divalproex sodium AdvReac Mild hyperammone Verified 12/14/22 15:42 [From Depakote] [facility] Assessment & Plan Assessment & Plan (1) Bipolar disorder: Status: Acute Code(s): F31.9 - Bipolar disorder, unspecified (2) PTSD (post-traumatic stress disorder): Status: Acute Code(s): F43.10 - Post-traumatic stress disorder, unspecified (3) History of psychogenic nonepileptic seizure: Status: Chronic Code(s): Z87.898 - Personal history of other specified conditions Plan Patient is a 62-year-old female with history of bipolar 1 disorder, PTSD, nonepileptic seizures, who presents for her 3rd psychiatric admission in the past 1.5 months for manic and disorganized behavior. Patient is a limited historian and has poor insight into her behaviors. Patient is currently manic, with pressured speech. Patient reports that she has not been sleeping saying I have been up all day and all night for many days now... She is perseverative on her annoyed feelings towards her brother and says that he treats me like dog poop... Patient rambling, difficult to interrupt, circumstantial and tangential. Patient agrees to continue with Tegretol but does not want Zyprexa saying it causes blurry vision and makes her drowsy. She does however agreed to take Thorazine, saying she wants to sleep in will take anything that will help her sleep. Impression/Plan: Patient continues to be non adherent with medications post discharge, quickly decompensating and coming back to the hospital. She agrees to get back on Tegretol which has been restarted. She also agrees to taking Thorazine which is ordered t.i.d.. 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 Currently patient is refusing to go back and live with her brother however typically once she stabilizes she agrees to return. Plan: CV Q 15 minute checks Tegretol 400 mg b.i.d. Will get labs to measure level Starting Thorazine 50 mg t.i.d. for agitation Will restart Ambien 5 mg q.h.s. as a p.r.n.; previous admission patient was on 10 mg which helped her sleep; however last admission it was discontinued. 12/29: Continue current management and treatment plan. 12/30: Start Trilafon 2 mg TID instead of Thorazine. Continue Tegretol. 12/31: check labs tonight. planning for discharge weds upon expiry of 3-day notice. much less manic than last week, still hypomanic. continue current medications. Reason for continued inpatient stay Substantial Risk for: inability to function and rapid decompensation Time Spent With Patient Time: Total time managing care of this patient today __25__ minutes.
[2022-12-31 20:35] LABS: MANUAL DIFF FLAG NO
[2022-12-31 20:37] LABS: Basophils Absolute Auto 0.1 X10*3/uL (0.0-0.2); Basophils Percent Auto 0.8 % (0-2); Eosinophils Absolute Auto 0.3 X10*3/uL (0.0-0.4); Eosinophils Percent Auto 3.6 % (0-4); Hematocrit 36.4 % (37.0-47.0); Hemoglobin 12.3 g/dl (12.0-16.0); Imm Gran Abs Auto 0.02 X10*3/uL (0.00-0.03); Imm Gran Pct Auto 0.3 % (0.0-0.4); Lymphocytes Absolute Auto 1.8 X10*3/uL (1.2-4.9); Lymphocytes Percent Auto 24.2 % (20-40); Mean Corpuscular HGB Conc 33.8 g/dl (31.0-35.0); Mean Corpuscular Hemoglobin 30.4 pg (27.0-33.0); Mean Corpuscular Volume 90.1 fL (80.0-98.0); Mean Platelet Volume 9.1 fL (9.4-12.3); Monocytes Absolute Auto 0.5 X10*3/uL (0.1-1.2); Monocytes Percent Auto 6.9 % (2-11); Neutrophils Absolute Auto 4.8 x10*3/uL (2.0-8.3); Neutrophils Percent Auto 64.2 % (45-73); Platelet Count 338 X10*3/uL (160-400); Red Blood Count 4.04 X10*6/uL (4.20-5.50); Red Cell Distribution Width 13.2 % (11.0-16.0); White Blood Count 7.4 X10*3/uL (4.8-10.8)
[2022-12-31 20:57] LABS: Carbamazepine Tegretol 8.1 mcg/mL (5.0-12.0)
[2022-12-31 20:58] LABS: Alanine Aminotransferase 28 U/L (0-31); Albumin Level 4.4 g/dL (3.5-5.0); Alkaline Phosphatase 77 U/L (39-117); Anion Gap 12 (12-20); Aspartate Amino Transferase 19 U/L (5-31); Bilirubin Direct < 0.2 mg/dL (0.0-0.5); Bilirubin Total 0.1 mg/dL (0.0-1.0); Blood Urea Nitrogen 13 mg/dL (9-16); Calcium 9.4 mg/dL (8.4-10.2); Carbon Dioxide 28 mmol/L (22-29); Chloride 97 mmol/L (96-108); Estimated Glomerular Filt Rate > 60; Glucose Random 92 mg/dL (60-115); Potassium 3.9 mmol/L (3.3-5.1); Sodium 133 mmol/L (135-145); Total Protein 7.4 g/dL (6.5-8.0)
[2022-12-31 21:11] VITALS: BP 165/70; PULSE 78; TEMP 36.1; O2SAT 100
[2022-12-31] MEDS: Melatonin 3 MG TABLET 9 MG PO (21:22)
[2023-01-01 07:20] VITALS: BP 171/73; PULSE 78; RESP 16; TEMP 36.6; O2SAT 96
[2023-01-01] MEDS: carvediloL 12.5 MG TABLET PO ×2 (09:01→21:32)
[2023-01-01] MEDS: Perphenazine 2 MG TABLET PO ×3 (09:01→21:31)
[2023-01-01] MEDS: carBAMazepine ER 200 MG TAB.ER.12H 400 MG PO ×2 (09:01→21:32)
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
[2023-01-01] MEDS: LORazepam 1 MG TABLET PO ×2 (16:34→22:18)
[2023-01-01] MEDS: HaloperidoL 5 MG TABLET PO (16:34)
[2023-01-01] MEDS: Melatonin 3 MG TABLET 9 MG PO (21:31)
[2023-01-01 21:36] VITALS: BP 148/73; PULSE 75; RESP 16; TEMP 36.1; O2SAT 99
[2023-01-01] MEDS: Zolpidem Tartrate 5 MG TABLET PO (22:18)
[2023-01-02 08:15] VITALS: BP 134/96; PULSE 74; RESP 18; TEMP 36; O2SAT 97
[2023-01-02] MEDS: carvediloL 12.5 MG TABLET PO (08:32)
[2023-01-02] MEDS: Perphenazine 2 MG TABLET PO (08:32)
[2023-01-02] MEDS: carBAMazepine ER 200 MG TAB.ER.12H 400 MG PO (08:32)
--- NOTE | 2023-01-02 11:11 | PC.NURSE ---
Patient easily engaged, continues hyperverbal, expansive, difficult to interrupt. Maintains mood is stable, denies highs or lows, denies depression or sadness, denies SI/HI plan or intent. Reports it is her brother who wants her in the hospital, denies need to be here. Discharge paperwork reviewed with patient, reports understanding. Discharge medications reviewed with patient, good understanding of schedule. Patient PCP to call for appointment. Patient reports understanding. Crisis numbers provided to patient. All belongings taken with patient.
== END 2023-01-02 10:30 | disposition home or self-care (01) | DRG 885 ==
LOC: HO.ED 20:01 → HO.PADLT16 12-27 14:32
PROVIDERS: Emergency Medicine; Nurse Practitioner Family; Admitting Provider Psychiatry & Neurology Psychiatry; Emergency Provider Emergency Medicine; Visit Provider Psychiatry & Neurology Psychiatry
DX: F31.10 Bipolar disorder, current episode manic without psychotic features, unspecified (principal); Z91.51 Personal history of suicidal behavior; F43.10 Post-traumatic stress disorder, unspecified; Z87.891 Personal history of nicotine dependence; Z79.899 Other long term (current) drug therapy
CPT/HCPCS: 36415; 80048; 80053; 80076; 80156; 80307; 81003; 85025; 87635; 93005; 99285; J1630; J2060

== ENCOUNTER → 2022-12-27 14:24 | Outpatient (BNV) | payer OTHER, SELFPAY | PROVIDERS: Admitting Provider Psychiatry & Neurology Psychiatry; Emergency Provider Emergency Medicine; Visit Provider Psychiatry & Neurology Psychiatry | DX: F31.13 Bipolar disorder, current episode manic without psychotic features, severe (principal); R56.9 Unspecified convulsions; F43.11 Post-traumatic stress disorder, acute | CPT/HCPCS: 90792; 99231; 99232; 99239 ==

== ENCOUNTER 2023-01-04 09:09 | Inpatient (IN) | payer OTHER, SELFPAY ==
--- NOTE | ~2023-01-04 | XR_ITS ---
EXAMINATION: XR CHEST CLINICAL INFORMATION: Covid positive. COMPARISON: Chest x-ray 04/18/2019 TECHNIQUE: Frontal view of the chest was obtained. FINDINGS: The cardiomediastinal silhouette is stable. Lungs mildly hypoexpanded. No consolidation. No effusion or pneumothorax. Right shoulder replacement. XR/XR chest 1V IMPRESSION: No focal pneumonia.
--- NOTE | 2023-01-04 09:16 | ECG_ITS ---
Test Reason : PSYCH Blood Pressure : / mmHG Vent. Rate : 068 BPM Atrial Rate : 068 BPM P-R Int : 158 ms QRS Dur : 080 ms QT Int : 400 ms P-R-T Axes : 043 044 051 degrees QTc Int : 425 ms Normal sinus rhythm Normal ECG When compared with ECG of 27-DEC-2022 10:55, No significant change was found Referred By: Otilia Forde Electronically Signed By:LUIS MAS MD
[2023-01-04] MEDS: Haloperidol Lactate 5 MG/ML VIAL IM (09:30)
[2023-01-04] MEDS: LORazepam 2 MG/ML VIAL IM (09:30)
[2023-01-04 09:38] VITALS: BP 170/90; BP 194/90; PULSE 112; PULSE 115; RESP 20; TEMP 37.2; O2SAT 96; O2SAT 98; BMI 27.3
[2023-01-04 09:45] VITALS: BP 104/75; PULSE 101; RESP 20; TEMP 37.2; O2SAT 96
--- NOTE | 2023-01-04 09:53 | ED_ITS ---
HPI - Psych General Chief Complaint: Psychiatric Symptoms Stated Complaint: HASNT TAKEN THEIR BP MEDS Time Seen by Provider: 01/04/23 09:13 Source: patient, EMS and old records reviewed Mode of arrival: EMS Limitations: other (agitation, hard to follow) History of Present Illness HPI Narrative: 62 yo female with PTSD, bipolar disorder, non-epileptic seizures here rambling yelling and states she is voluntary and an insomniac. I cannot get much else out of her. She is walking around the unit naked and yelling at patients and staff. No trauma noted MD complaint: other (agitation, hyperverbal) Onset (ago): day(s) (just left inpatient 01/01) Duration: getting worse History of same: Yes Relieving factors: none Exacerbating factors: none Context: not taking psychiatric medications (EMS thought patient wasn't taking meds) Associated psychiatric symptoms: racing thoughts Associated symptoms: denies other symptoms Treatments prior to arrival: none Related Data Home Medications Medication Instructions Recorded Confirmed melatonin 3 mg tablet 9 mg PO BEDTIME 10/26/22 01/04/23 hydroxyzine pamoate 25 mg capsule 25 mg PO TID PRN anxiety 01/04/23 01/04/23 trazodone 50 mg tablet 50 mg PO BEDTIME PRN insomnia 01/04/23 01/04/23 Previous Rx's Medication Instructions Recorded carbamazepine 200 mg 400 mg (2 x 200 mg) PO BID 30 days 01/01/23 tablet,extended release,12 hr #120 tabs carvedilol 12.5 mg tablet 12.5 mg PO Q12H 30 days #60 tabs 01/01/23 perphenazine 2 mg tablet 4 mg (2 x 2 mg) PO BID 30 days 01/01/23 #120 tabs Allergies Allergy/AdvReac Type Severity Reaction Status Date / Time olanzapine AdvReac Severe visual Verified 01/02/23 14:39 changes divalproex sodium AdvReac Mild hyperammone Verified 01/02/23 14:39 [From Depakote] yoan Review of Systems 2 Review of Systems: ROS unable to be obtained due to agitation PMFSH Past Medical History Source: old records reviewed Medical History Leiomyoma PTSD (post-traumatic stress disorder) Bipolar I disorder Tinea unguium History of psychogenic nonepileptic seizure Impaired fasting glucose Dyslipidemia (high LDL; low HDL) Hx of suicide attempt On beta baldemar at home Arthritis Anxiety Diastasis recti Umbilical hernia Compression fracture of L1 lumbar vertebra Dupuytren's contracture of left hand Lumbar disc herniation Essential hypertension Ventral hernia Urinary incontinence Surgical History H/O shoulder surgery Hx of elbow surgery Hx of repair of left rotator cuff Hx of colonoscopy History of lumbar fusion Family History Family History Father Diabetes mellitus Mother COPD (chronic obstructive pulmonary disease) Sister Diabetes mellitus Glaucoma Other Mental health disorder Substance use disorder Social History Household Members: Other Household Members Other:: brother Housing: House Are you a primary neonatal intensive care nurse to a significant other at home: No Do you presently have visiting nurse or other home services: No Unable to assess alcohol history related to: Unknown Alcohol intake: current Alcohol intake frequency: holidays/special occasions only Patient Tobacco Use Status: Former Tobacco user Quit Date: 20 years ago Tobacco use type: Cigarette Cigarette Packs Per Day: 1 Cigarettes Per Day: 20.0 e-Cigarette/Vaping Use: Never Used Second Hand Smoke Exposure: No Substance Use Type: Marijuana Advance Directives: Yes Advance Directives on File: Yes Advance Directives Date on File: 11/26/22 service: No Current occupational status: disabled Sexual orientation: Straight/Heterosexual Cognitive needs: No Hearing needs: No Vision needs: No Physical Exam 2 Vital Signs: Vital Signs: Last Vital Signs Temp 97.9 F 01/04/23 14:48 Pulse 82 01/04/23 14:48 Resp 16 01/04/23 14:48 BP 107/66 01/04/23 14:48 Pulse Ox 99 01/04/23 14:48 O2 Del Method Room Air 01/04/23 14:48 BMI result Body Mass Index 27.3 Appearance: Alert. answering questions but then rambles and yells, agitated. Moderate acute distress. Eyes: Pupils equal, round and reactive to light. ENT: Pharynx normal. Neck: Normal inspection. Neck supple. CVS: Normal heart rate and rhythm. Pulses normal. Respiratory: No respiratory distress. Breath sounds normal. Abdomen: Soft and nontender. Skin: Skin warm and dry. Normal skin color. Extremities: No lower extremity edema. Neuro: Agitated. No motor deficit. No sensory deficit. Cn2-12 intact Course Course Course Narrative: Physician observation started at 1041am. Patient placed in physician observation because the patient needed more time for CARE team to assess the need for psych admission. At the time observation was started the patient's vitals were stable, patient is alert and oriented but slightly agitated, Neuro: nonfocal, CV RRR, Lungs clear Reevaluation(s) Reevaluation #1: improved after IM medications Medications Administered Discontinued Medications Generic Name Dose Route Start Last Admin Trade Name Freq PRN Reason Stop Dose Admin Chlorpromazine HCl 50 mg 01/04/23 09:17 01/04/23 10:18 Chlorpromazine Hcl 25 Mg Tablet PO 01/04/23 09:18 Not Given ONCE ONE Haloperidol Lactate 5 mg 01/04/23 09:42 01/04/23 09:30 Haloperidol Lactate 5 Mg/Ml Vial IM 01/04/23 09:43 5 mg STAT STA Administration Lorazepam 2 mg 01/04/23 09:42 01/04/23 09:30 Lorazepam 2 Mg/Ml Vial IM 01/04/23 09:43 2 mg STAT STA Administration Medical Decision Making Medical Decision Making [facility] Narrative: 62 yo female with PTSD, bipolar disorder, non-epileptic seizures here with racing thoughts, agitation, rambling, yelling at staff walking around the halls naked taking her clothes off at this time refusing PO medications will need IM medications and CARE team consult. Hx of same after DC - suspect she stopped her medications Differential Diagnosis Differential Diagnoses: The differential diagnosis associated with the presentation includes bipolar Admission/Observation Consideration of admission/observation: Escalation of care including admission/observation considered observe until CARE team sees patient Consult Healthcare Provider Management of the patient was discussed with: Behavioral Health Provider Lab Data [facility] Lab Attestation statement: I reviewed the patient's lab results. 01/04/23 10:04 01/04/23 10:04 Labs: Lab Results 01/04/23 Range/Units 10:04 WBC 7.4 (4.8-10.8) X10*3/uL RBC 4.30 (4.20-5.50) X10*6/uL Hgb 13.2 (12.0-16.0) g/dl Hct 38.0 (37.0-47.0) % MCV 88.4 (80.0-98.0) fL MCH 30.7 (27.0-33.0) pg MCHC 34.7 (31.0-35.0) g/dl RDW 13.2 (11.0-16.0) % Plt Count 371 (160-400) X10*3/uL MPV 8.9 L (9.4-12.3) fL Immature Gran % (Auto) 0.3 (0.0-0.4) % Neut % (Auto) 80.3 H (45-73) % Lymph % (Auto) 12.7 L (20-40) % [place] % (Auto) 5.9 (2-11) % Eos % (Auto) 0.1 (0-4) % Baso % (Auto) 0.7 (0-2) % Lymph # (Auto) 0.9 L (1.2-4.9) X10*3/uL [place] # (Auto) 0.4 (0.1-1.2) X10*3/uL Eos # (Auto) 0.0 (0.0-0.4) X10*3/uL Baso # (Auto) 0.1 (0.0-0.2) X10*3/uL Abs Immat Gran (auto) 0.02 (0.00-0.03) X10*3/uL Absolute Neuts (auto) 6.0 (2.0-8.3) x10*3/uL Absolute Nucleated RBC 0.000 (0.0-0.012) X10*3/uL Nucleated RBC % (auto) 0.0 (0.0-0.2) /100WBC Sodium 134 L (135-145) mmol/L Potassium 4.0 (3.3-5.1) mmol/L Chloride 100 (96-108) mmol/L Carbon Dioxide 24 (22-29) mmol/L Anion Gap 14 (12-20) BUN 10 (9-16) mg/dL Creatinine 0.81 (0.5-1.4) mg/dL Estim Creat Clear Calc 60.6 Estimated GFR > 60 Random Glucose 142 H (60-115) mg/dL Calcium 9.6 (8.4-10.2) mg/dL Magnesium 1.8 (1.6-2.6) mg/dL Total Bilirubin 0.4 (0.0-1.0) mg/dL Direct Bilirubin 0.1 (0.0-0.5) mg/dL AST 23 (5-31) U/L ALT 28 (0-31) U/L Alkaline Phosphatase 73 (39-117) U/L Total Protein 7.5 (6.5-8.0) g/dL Albumin 4.4 (3.5-5.0) g/dL COVID-19 ([facility]) Negative (Negative) COVID-19 Clin Com See Note Independent Interpretation I performed an independent interpretation of an: EKG Interpretation: Rate: 61 Rhythm: NSR [place]: left Normal P waves. Normal ODALIS. Normal QRS complex. ST T wave : no FELIBERTO, nonspecific qTC: normal prior studies: no acute ischemia The study has been interpreted contemporaneously by me. . Independent Historian Clinical information obtained from an independent historian. History obtained from or confirmed by: EMS External Record Review External record reviewed: Inpatient record Discharge Plan Discharge Clinical Impression: Bipolar I disorder Patient Disposition: Still a Patient Prescriptions: No Action melatonin 3 mg tablet 9 mg PO BEDTIME perphenazine 2 mg Tablet 4 mg PO BID 30 Days Qty: 120 0RF carvedilol 12.5 mg tablet 12.5 mg PO Q12H 30 Days Qty: 60 0RF carbamazepine 200 mg Tablet Extended Release 12 Hr 400 mg PO BID 30 Days Qty: 120 0RF trazodone 50 mg tablet 50 mg PO BEDTIME PRN (Reason: insomnia) hydroxyzine pamoate 25 mg capsule 25 mg PO TID PRN (Reason: anxiety) Interventions: [place]-Suicide Risk Severity Scale Last Done: 01/04/23 09:47
[2023-01-04 10:08] LABS: MANUAL DIFF FLAG NO
[2023-01-04 10:12] LABS: Basophils Absolute Auto 0.1 X10*3/uL (0.0-0.2); Basophils Percent Auto 0.7 % (0-2); Eosinophils Percent Auto 0.1 % (0-4); Hemoglobin 13.2 g/dl (12.0-16.0); Imm Gran Abs Auto 0.02 X10*3/uL (0.00-0.03); Imm Gran Pct Auto 0.3 % (0.0-0.4); Lymphocytes Absolute Auto 0.9 X10*3/uL (1.2-4.9); Lymphocytes Percent Auto 12.7 % (20-40); Mean Corpuscular HGB Conc 34.7 g/dl (31.0-35.0); Mean Corpuscular Hemoglobin 30.7 pg (27.0-33.0); Mean Corpuscular Volume 88.4 fL (80.0-98.0); Mean Platelet Volume 8.9 fL (9.4-12.3); Monocytes Absolute Auto 0.4 X10*3/uL (0.1-1.2); Monocytes Percent Auto 5.9 % (2-11); Neutrophils Percent Auto 80.3 % (45-73); Platelet Count 371 X10*3/uL (160-400); Red Cell Distribution Width 13.2 % (11.0-16.0); White Blood Count 7.4 X10*3/uL (4.8-10.8)
[2023-01-04 10:15] VITALS: BP 123/71; PULSE 104; RESP 20; TEMP 37.2; O2SAT 95
[2023-01-04 10:26] LABS: Alanine Aminotransferase 28 U/L (0-31); Albumin Level 4.4 g/dL (3.5-5.0); Alkaline Phosphatase 73 U/L (39-117); Anion Gap 14 (12-20); Aspartate Amino Transferase 23 U/L (5-31); Bilirubin Direct 0.1 mg/dL (0.0-0.5); Bilirubin Total 0.4 mg/dL (0.0-1.0); Blood Urea Nitrogen 10 mg/dL (9-16); COVID-19 Test Negative (Negative); Calcium 9.6 mg/dL (8.4-10.2); Carbon Dioxide 24 mmol/L (22-29); Chloride 100 mmol/L (96-108); Creatinine Clr Calc Pharmacy 60.6; Estimated Glomerular Filt Rate > 60; Glucose Random 142 mg/dL (60-115); IDNOW Serial# 58CA691E; Magnesium 1.8 mg/dL (1.6-2.6); Sodium 134 mmol/L (135-145); Total Protein 7.5 g/dL (6.5-8.0)
[2023-01-04 10:30] VITALS: BP 91/66; PULSE 83; RESP 16; TEMP 37.2; O2SAT 94
--- NOTE | 2023-01-04 10:41 | PC.NURSE ---
Addendum entered by Lupis Almaraz RN 01/04/23 10:44: Meds given were Ativan 2 mg and Haldol 5 mg IM at 0930 Original Note: Med was given vials were verified with RN Director Post Radha. Originally med was pulled for another pt but was not used for that patient. MD Forde was at bedside when this medication was administered. Patient was agreeable to taking med via IM route. Pharmacy was also notified.
--- NOTE | 2023-01-04 11:11 | PC.NURSE ---
Patient upon arrival was triggered by another pt and proceeded to take clothes off and use pressured speech. MD was at bedside and ordered haldol and ativan for patient IM. Patient verbally agreed to take medication MD held hand to decrease anxiety which patient was agreeable to. IM medication was given without incident. Patient told this nure thank you for giving shot to help her sleep . Patient vitals are even and unlabored, resting comfortably with eyes closed, no c/o distress at this time.
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
[2023-01-04 14:48] VITALS: BP 107/66; PULSE 82; RESP 16; TEMP 36.6; O2SAT 99
[2023-01-04 18:34] LABS: Color Urine Yellow; Glucose Urine UA Negative (Negative); Leukocyte Esterase Urine Negative (Negative); Nitrite Urine Negative (Negative); PH 6.5 (5.0-9.0); Specific Gravity - Urine <= 1.005 (1.005-1.025); Urine Blood Negative (Negative); Urine Ketones Negative (Negative); Urine Protein Negative (Neg-Trace)
[2023-01-04 18:35] LABS: Appearance Urine Clear
[2023-01-04 18:39] LABS: Amphetamine Screen Urine Not Detected (Not Detect); Barbiturates, Urine Not Detected (Not Detect); Benzodiazepines Screen Urine Not Detected (Not Detect); Cannabinoid Screen Urine POSITIVE (Not Detect); Cocaine Screen Urine Not Detected (Not Detect); Fentanyl, urine Not Detected (Not Detect); Opiate Screen Urine Not Detected (Not Detect); Phencyclidine Screen Urine Not Detected (Not Detect)
[2023-01-04 19:19] VITALS: BP 114/66; PULSE 74; RESP 16; TEMP 36.6; O2SAT 97
--- NOTE | 2023-01-04 19:39 | PHA.MEDREC ---
Pharmacy Consult ? Medication Reconciliation Pharmacy has completed the medication reconciliation.PHARMACY HAS REVIEWED MED REC DONE BY NURSING. OLANZAPINE WAS IN CLAIM HISTORY BUT NOT ON MED LIST CONFIRMED WITH PROVIDER PT HAS NOT BEEN TAKING DUE TO ADVERSE EFFECTS.
[2023-01-04] MEDS: Melatonin 3 MG TABLET 9 MG PO (20:33)
[2023-01-04] MEDS: carvediloL 12.5 MG TABLET PO (20:34)
[2023-01-04] MEDS: carBAMazepine ER 200 MG TAB.ER.12H 400 MG PO (20:34)
--- NOTE | 2023-01-04 22:28 | PC.NURSE ---
patient had asked about ambien with administration of HS neds. t/w stated should she require an additional s leep med one would be pursued. patient had declined perphenazine, t/w instructed client that was proabably a helpful medicine when i was on the floor the nurses had said i had the right to refuse patient appeared in no distress
[2023-01-05 01:28] VITALS: BP 112/69; PULSE 73; RESP 17; TEMP 36.6; O2SAT 98
--- NOTE | 2023-01-05 05:38 | PC.NURSE ---
pt oob several times during the night, reported unable to sleep. gait steady
[2023-01-05 07:34] VITALS: RESP 18
[2023-01-05] MEDS: carvediloL 12.5 MG TABLET PO ×2 (09:00→21:02)
[2023-01-05] MEDS: carBAMazepine ER 200 MG TAB.ER.12H 400 MG PO ×2 (09:00→21:03)
[2023-01-05 09:35] LABS: COVID-19 Test Positive (Negative); IDNOW Serial# BCCEAD1C
--- NOTE | 2023-01-05 11:59 | PC.NURSE ---
patient is alert and able to make her needs known. Patient has a good appetite and ate 100% of breakfast. Patients brother whom patient lives with called to report that he is covid positive. Patient stated her lungs are hurting and she is getting a runny nose. Patient was covid negative yesterday when tested. Covid test repeated this morning, patient is covid positive.
[2023-01-05] MEDS: Ibuprofen 600 MG TABLET PO (12:34)
[2023-01-05 14:43] VITALS: RESP 16
[2023-01-05] MEDS: Benzonatate 100 MG CAPSULE PO (15:58)
--- NOTE | 2023-01-05 16:08 | PC.NURSE ---
patient is covid positive. Patient has a cough and requested something for the cough. MD contacted. Jorje bartholomew given for cough. pending effect
[2023-01-05] MEDS: diphenhydrAMINE HCL 25 MG CAPSULE 50 MG PO (17:29)
[2023-01-05] MEDS: Acetaminophen 325 MG TABLET 650 MG PO ×2 (19:24→23:34)
[2023-01-05 21:01] VITALS: BP 150/75; PULSE 79; RESP 17; TEMP 36.9; O2SAT 94
[2023-01-05] MEDS: Melatonin 3 MG TABLET 9 MG PO (21:02)
[2023-01-06] MEDS: diphenhydrAMINE HCL 25 MG CAPSULE 50 MG PO ×2 (01:13→09:06)
[2023-01-06] MEDS: Ibuprofen 600 MG TABLET PO (04:28)
[2023-01-06] MEDS: Zolpidem Tartrate 5 MG TABLET 10 MG PO (04:37)
--- NOTE | 2023-01-06 04:41 | PC.NURSE ---
Pt reporting headache and requested mami. aware, medicated per APR.
[2023-01-06 06:00] VITALS: RESP 16
[2023-01-06] MEDS: carBAMazepine ER 200 MG TAB.ER.12H 400 MG PO ×2 (09:05→20:07)
[2023-01-06] MEDS: carvediloL 12.5 MG TABLET PO ×2 (09:06→20:07)
[2023-01-06] MEDS: Benzonatate 100 MG CAPSULE PO (09:06)
[2023-01-06 14:13] VITALS: RESP 18
[2023-01-06] MEDS: Haloperidol Lactate 5 MG/ML VIAL IM (14:44)
[2023-01-06] MEDS: LORazepam 2 MG/ML VIAL IM (14:45)
--- NOTE | 2023-01-06 14:46 | PC.NURSE ---
Patient is alert and oriented and able to make needs known. Patient is covid + and said that she does not have an appetite and did not eat breakfast or lunch despite multiple options offered. Patient has become increasingly agitated and was not able to be redirected. Patient was offered medication and requested 20 IMs . Patient given 1 IM, effect pending. patient is laying on her bed at this time.
[2023-01-06] MEDS: Melatonin 3 MG TABLET 9 MG PO (20:07)
[2023-01-06] MEDS: Perphenazine 4 MG TABLET PO (20:08)
[2023-01-06 20:22] VITALS: BP 136/80; PULSE 94; RESP 14; TEMP 39.3; O2SAT 94
[2023-01-06] MEDS: Acetaminophen 325 MG TABLET 650 MG PO (20:49)
[2023-01-06 23:50] VITALS: TEMP 36.9
--- NOTE | 2023-01-07 04:28 | PC.NURSE ---
Pt sleeping at the bedside in no apparent distress. Breaths are even regular and unlabored with equal chest rises. Monitoring is ongoing.
[2023-01-07 06:32] VITALS: BP 97/58; PULSE 73; RESP 17; TEMP 37.6; O2SAT 97
[2023-01-07] MEDS: carvediloL 12.5 MG TABLET PO ×2 (06:42→20:51)
--- NOTE | 2023-01-07 07:14 | PC.NURSE ---
nad, ls clear b/l, feels afebrile, pt wearing a mask and cooperative with using certain bathroom and staying in room
[2023-01-07] MEDS: carBAMazepine ER 200 MG TAB.ER.12H 400 MG PO (08:24)
[2023-01-07] MEDS: Acetaminophen 325 MG TABLET 975 MG PO (08:39)
[2023-01-07] MEDS: Benzonatate 100 MG CAPSULE PO (08:39)
[2023-01-07 13:13] LABS: Anion Gap 13 (12-20); Blood Urea Nitrogen 13 mg/dL (9-16); Calcium 8.5 mg/dL (8.4-10.2); Carbon Dioxide 24 mmol/L (22-29); Chloride 89 mmol/L (96-108); Creatinine Clr Calc Pharmacy 62.1; Estimated Glomerular Filt Rate > 60; Glucose Random 100 mg/dL (60-115); Potassium 3.6 mmol/L (3.3-5.1); Sodium 122 mmol/L (135-145)
[2023-01-07] MEDS: diphenhydrAMINE HCL 25 MG CAPSULE 50 MG PO (16:37)
[2023-01-07] MEDS: Acetaminophen 325 MG TABLET 650 MG PO (16:37)
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
[2023-01-07 19:50] VITALS: BP 148/74; PULSE 78; RESP 18; TEMP 36.6; O2SAT 97
[2023-01-07] MEDS: Melatonin 3 MG TABLET 9 MG PO (20:51)
[2023-01-07] MEDS: Zolpidem Tartrate 5 MG TABLET 10 MG PO (22:16)
[2023-01-08] MEDS: LORazepam 1 MG TABLET PO (02:47)
[2023-01-08] MEDS: Acetaminophen 325 MG TABLET 650 MG PO (06:27)
[2023-01-08 08:15] VITALS: BP 117/71; PULSE 74; RESP 18; TEMP 37.2; O2SAT 96
[2023-01-08] MEDS: carvediloL 12.5 MG TABLET PO ×2 (09:07→21:16)
[2023-01-08 10:49] LABS: Alanine Aminotransferase 27 U/L (0-31); Albumin Level 4.2 g/dL (3.5-5.0); Alkaline Phosphatase 66 U/L (39-117); Anion Gap 12 (12-20); Aspartate Amino Transferase 26 U/L (5-31); Bilirubin Total 0.2 mg/dL (0.0-1.0); Blood Urea Nitrogen 11 mg/dL (9-16); Calcium 9.1 mg/dL (8.4-10.2); Carbon Dioxide 27 mmol/L (22-29); Chloride 92 mmol/L (96-108); Creatinine Clr Calc Pharmacy 73.4; Estimated Glomerular Filt Rate > 60; Glucose Fasting 123 mg/dL (60-99); Potassium 3.7 mmol/L (3.3-5.1); Sodium 127 mmol/L (135-145); Total Protein 7.4 g/dL (6.5-8.0)
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
[2023-01-08] MEDS: carBAMazepine 200 MG TABLET 400 MG PO ×2 (16:32→21:16)
[2023-01-08 18:00] VITALS: BP 140/66; PULSE 75; TEMP 36.8; O2SAT 97
[2023-01-08] MEDS: Melatonin 3 MG TABLET 9 MG PO (21:16)
[2023-01-08] MEDS: Zolpidem Tartrate 5 MG TABLET 10 MG PO (21:16)
[2023-01-08] MEDS: Perphenazine 4 MG TABLET PO (21:17)
[2023-01-09] MEDS: carBAMazepine 200 MG TABLET 400 MG PO ×2 (09:08→21:00)
[2023-01-09] MEDS: carvediloL 12.5 MG TABLET PO ×2 (09:08→21:01)
[2023-01-09] MEDS: guaiFENesin DM 600/30 1 TAB TAB.ER.12H PO (16:54)
[2023-01-09] MEDS: guaiFENesin DM 200/20/10 ML 10 ML SYRUP PO ×2 (16:54→23:07)
[2023-01-09] MEDS: Acetaminophen 325 MG TABLET 650 MG PO (16:54)
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
[2023-01-09 18:00] VITALS: BP 178/93; PULSE 70; TEMP 36.7; O2SAT 97
[2023-01-09] MEDS: Zolpidem Tartrate 5 MG TABLET 10 MG PO (20:59)
[2023-01-09] MEDS: Melatonin 3 MG TABLET 9 MG PO (21:00)
[2023-01-10] MEDS: LORazepam 1 MG TABLET PO (01:21)
[2023-01-10 08:00] VITALS: BP 176/98; PULSE 74; RESP 18; TEMP 36; O2SAT 96
[2023-01-10] MEDS: carvediloL 12.5 MG TABLET PO ×2 (09:04→20:48)
[2023-01-10] MEDS: carBAMazepine 200 MG TABLET 400 MG PO ×2 (09:04→20:44)
[2023-01-10 09:22] LABS: Anion Gap 11 (12-20); Blood Urea Nitrogen 5 mg/dL (9-16); Carbon Dioxide 26 mmol/L (22-29); Chloride 93 mmol/L (96-108); Creatinine Clr Calc Pharmacy 84.7; Estimated Glomerular Filt Rate > 60; Glucose Random 148 mg/dL (60-115); Potassium 3.7 mmol/L (3.3-5.1); Sodium 126 mmol/L (135-145)
[2023-01-10 12:24] LABS: COVID-19 Test Positive (Negative); IDNOW Serial# BCCEAD1C
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
[2023-01-10 19:55] VITALS: BP 206/102; PULSE 68
[2023-01-10] MEDS: Perphenazine 4 MG TABLET PO (20:44)
[2023-01-10] MEDS: Melatonin 3 MG TABLET 9 MG PO (20:45)
[2023-01-10] MEDS: guaiFENesin DM 200/20/10 ML 10 ML SYRUP PO (20:50)
[2023-01-10] MEDS: Zolpidem Tartrate 5 MG TABLET 10 MG PO (20:51)
[2023-01-10 21:56] VITALS: BP 137/82; PULSE 70
[2023-01-10 22:03] VITALS: BP 146/86; PULSE 69
[2023-01-11 08:56] VITALS: BP 198/95; PULSE 90; RESP 16; TEMP 36.2; O2SAT 95
[2023-01-11] MEDS: carvediloL 12.5 MG TABLET PO ×2 (09:12→20:19)
[2023-01-11] MEDS: carBAMazepine 200 MG TABLET 400 MG PO ×2 (09:15→20:19)
--- NOTE | 2023-01-11 12:44 | PC.NURSE ---
BP @ 08:56 was 198/95. pt refused recheck @ 0433. Provider made aware.
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
[2023-01-11] MEDS: Acetaminophen 325 MG TABLET 650 MG PO (15:54)
[2023-01-11 17:06] VITALS: BP 206/114; PULSE 73; RESP 18
[2023-01-11 18:15] VITALS: BP 200/104; PULSE 80
[2023-01-11] MEDS: cloNIDine HCL 0.1 MG TABLET PO (18:29)
[2023-01-11] MEDS: LORazepam 1 MG TABLET 2 MG PO (18:43)
[2023-01-11 19:30] VITALS: BP 170/93; PULSE 84; RESP 18
[2023-01-11] MEDS: Melatonin 3 MG TABLET 9 MG PO (20:19)
[2023-01-11] MEDS: Zolpidem Tartrate 5 MG TABLET 10 MG PO (20:24)
[2023-01-12 08:26] VITALS: BP 133/80; PULSE 79; RESP 16; TEMP 36.9; O2SAT 95
[2023-01-12] MEDS: carvediloL 12.5 MG TABLET PO (08:33)
[2023-01-12] MEDS: carBAMazepine 200 MG TABLET 400 MG PO ×2 (08:34→21:08)
[2023-01-12] MEDS: guaiFENesin DM 200/20/10 ML 10 ML SYRUP PO (08:35)
[2023-01-12] MEDS: guaiFENesin DM 600/30 1 TAB TAB.ER.12H PO (08:35)
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
[2023-01-12 10:01] LABS: Anion Gap 13 (12-20); Blood Urea Nitrogen 8 mg/dL (9-16); Carbon Dioxide 25 mmol/L (22-29); Chloride 94 mmol/L (96-108); Creatinine Clr Calc Pharmacy 68.3; Estimated Glomerular Filt Rate > 60; Glucose Random 107 mg/dL (60-115); Potassium 3.8 mmol/L (3.3-5.1); Sodium 128 mmol/L (135-145)
--- NOTE | 2023-01-12 12:16 | P.EN_ITS ---
Event Note Date of Service: 01/13/23 Event Note: Patient is a 62-year-old female with past history significant for HTN, psychogenic nonepileptic seizures, PTSD and bipolar 1 disorder. Medical consult for persistent hypertension and hyponatremia. Patient's blood pressure has been elevated as high as 206/114 over the past 3 days. Currently on carvdilol 12.5mg po bid. Most recent BP normotensive at 133/80 this morning, though no apparent pattern of BP elevating over the course of the day. Will monitor and if BP continues to be elevated will add the amlodipine 5 mg daily. As for hyponatremia, medicine was originally consulted about hyponatremia on 12/14/2022 during last admission and thought likely secondary to carbamazepine use as low sodium began after initiating medication. Patient's sodium on 11/16/2022 WNL at 138. Patient was then started on carbamazepine on 11/21/2022 and sodium level since them have all been low, with sodium of 128 on 12/12/2022, 130 on 12/13/2022, in 127 on 12/14/2022. At that time it was suggested to hold her carbamazepine, but it looks like it was continued and pt's sodium continues to be low. Obtained urine osmolality, urine sodium, and urine creatinine which indicated normal renal function and consistent with hyponatremia secondary to medication. Recommendation is again to hold/discontinue carbamazepine and recheck sodium daily until normalizes. Would not suggest initiating sodium- replacement therapy without nephrology input, especially given her persistent hypertension. If carbamazepine cannot be discontinued/has more positive effects than negative, please consult nephrology about management of hyponatremia. Time Spent With Patient Time: Total time managing care of this patient today ____ minutes.
[2023-01-12 12:47] LABS: Sodium Urine Random < 20.0 mmol/L
[2023-01-12 13:17] LABS: Osmolality Urine 358 mosm/kg (373-1093)
[2023-01-12 14:02] VITALS: BP 153/74; PULSE 72
[2023-01-12] MEDS: Acetaminophen 325 MG TABLET 650 MG PO (14:03)
[2023-01-12 17:02] VITALS: BP 198/100; PULSE 71; TEMP 36.3; O2SAT 99
--- NOTE | 2023-01-12 17:13 | PC.NURSE ---
Manual BP 170/98. Dr. Maverick Velasquez notified. Clonidine 0.2 mg po x 1 dose ordered.
[2023-01-12] MEDS: cloNIDine HCL 0.2 MG TABLET PO (17:25)
[2023-01-12 21:00] VITALS: BP 150/86; PULSE 61
[2023-01-12] MEDS: Perphenazine 4 MG TABLET PO (21:07)
[2023-01-12] MEDS: Zolpidem Tartrate 5 MG TABLET 10 MG PO (21:07)
[2023-01-12] MEDS: carvediloL 6.25 MG TABLET 18.75 MG PO (21:08)
[2023-01-12] MEDS: Melatonin 3 MG TABLET 9 MG PO (21:11)
[2023-01-13] MEDS: guaiFENesin DM 600/30 1 TAB TAB.ER.12H PO ×3 (02:46→21:17)
[2023-01-13] MEDS: guaiFENesin DM 200/20/10 ML 10 ML SYRUP PO ×3 (02:46→21:11)
[2023-01-13 08:18] VITALS: BP 229/109; PULSE 85; RESP 16; TEMP 36.1; O2SAT 93
[2023-01-13] MEDS: carvediloL 6.25 MG TABLET 18.75 MG PO ×2 (08:30→21:12)
[2023-01-13] MEDS: LORazepam 1 MG TABLET 2 MG PO (08:31)
[2023-01-13] MEDS: carBAMazepine 200 MG TABLET 400 MG PO ×2 (08:32→21:13)
--- NOTE | 2023-01-13 08:36 | PC.NURSE ---
Elevated BP 229/109. Provider Nancy Pizarro [employer] notified. T.O received for Ativan 2mg PO once. Pt received scheduled Coreg 18.75mg and Ativan 2mg PO. Will continue to monitor.
[2023-01-13 09:49] VITALS: BP 108/63; PULSE 66
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
[2023-01-13] MEDS: Acetaminophen 325 MG TABLET 650 MG PO (14:33)
[2023-01-13 17:20] VITALS: BP 172/82; PULSE 64; RESP 17; TEMP 36.9; O2SAT 97
[2023-01-13] MEDS: Melatonin 3 MG TABLET 9 MG PO (21:11)
[2023-01-13] MEDS: LORazepam 1 MG TABLET PO (21:14)
[2023-01-13] MEDS: Zolpidem Tartrate 5 MG TABLET 10 MG PO (21:14)
[2023-01-14] MEDS: guaiFENesin DM 200/20/10 ML 10 ML SYRUP PO (04:47)
[2023-01-14] MEDS: guaiFENesin DM 600/30 1 TAB TAB.ER.12H PO (04:47)
[2023-01-14 08:07] VITALS: BP 189/96; PULSE 66; RESP 16; TEMP 36.5; O2SAT 94
[2023-01-14] MEDS: carBAMazepine 200 MG TABLET 400 MG PO (08:22)
[2023-01-14] MEDS: amLODIPine Besylate 5 MG TABLET PO (08:23)
[2023-01-14] MEDS: carvediloL 6.25 MG TABLET 18.75 MG PO ×2 (08:23→20:28)
[2023-01-14] MEDS: Acetaminophen 325 MG TABLET 650 MG PO (08:39)
[2023-01-14] MEDS: LORazepam 1 MG TABLET PO ×2 (08:39→16:41)
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
[2023-01-14 10:26] VITALS: BP 121/71; PULSE 61
[2023-01-14 20:25] VITALS: BP 140/72; PULSE 74; TEMP 35.9
[2023-01-14] MEDS: Zolpidem Tartrate 5 MG TABLET 10 MG PO (20:28)
[2023-01-14] MEDS: Melatonin 3 MG TABLET 9 MG PO (20:29)
[2023-01-15] MEDS: Acetaminophen 325 MG TABLET 650 MG PO (06:12)
[2023-01-15 08:00] VITALS: BP 180/91; PULSE 72; RESP 16; TEMP 36; O2SAT 93
[2023-01-15] MEDS: carvediloL 6.25 MG TABLET 18.75 MG PO ×2 (08:48→21:05)
[2023-01-15] MEDS: amLODIPine Besylate 5 MG TABLET PO (08:48)
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
[2023-01-15] MEDS: LORazepam 1 MG TABLET PO (16:23)
[2023-01-15 21:00] VITALS: BP 168/98; PULSE 75; TEMP 36.2
[2023-01-15] MEDS: Melatonin 3 MG TABLET 9 MG PO (21:04)
[2023-01-15] MEDS: Zolpidem Tartrate 5 MG TABLET 10 MG PO (21:06)
[2023-01-16] MEDS: LORazepam 1 MG TABLET PO ×3 (02:44→14:02)
[2023-01-16 08:00] VITALS: BP 156/81; PULSE 80; RESP 16; TEMP 36.6; O2SAT 96
[2023-01-16] MEDS: carvediloL 6.25 MG TABLET 18.75 MG PO ×2 (09:09→21:53)
[2023-01-16] MEDS: amLODIPine Besylate 5 MG TABLET PO (09:10)
[2023-01-16 12:25] LABS: Anion Gap 13 (12-20); Blood Urea Nitrogen 8 mg/dL (9-16); Calcium 9.7 mg/dL (8.4-10.2); Carbon Dioxide 26 mmol/L (22-29); Chloride 96 mmol/L (96-108); Creatinine Clr Calc Pharmacy 72.3; Estimated Glomerular Filt Rate > 60; Glucose Random 119 mg/dL (60-115); Potassium 4.3 mmol/L (3.3-5.1); Sodium 131 mmol/L (135-145)
[2023-01-16 12:54] LABS: COVID-19 Test Positive (Negative); IDNOW Serial# BCCEAD1C
[2023-01-16] MEDS: guaiFENesin DM 200/20/10 ML 10 ML SYRUP PO (14:01)
[2023-01-16] MEDS: guaiFENesin DM 600/30 1 TAB TAB.ER.12H PO (14:02)
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
[2023-01-16] MEDS: cloNIDine HCL 0.1 MG TABLET PO (17:37)
[2023-01-16 18:00] VITALS: BP 188/91; PULSE 65; TEMP 36.6
[2023-01-16 21:45] VITALS: BP 142/85; PULSE 58; TEMP 36.8
[2023-01-16] MEDS: Melatonin 3 MG TABLET 9 MG PO (21:53)
[2023-01-16] MEDS: Zolpidem Tartrate 5 MG TABLET 10 MG PO (21:53)
[2023-01-17 08:00] VITALS: BP 203/88; PULSE 90; RESP 16; TEMP 36.6; O2SAT 96
[2023-01-17] MEDS: carvediloL 6.25 MG TABLET 18.75 MG PO ×2 (08:28→21:31)
[2023-01-17] MEDS: amLODIPine Besylate 5 MG TABLET PO (08:28)
[2023-01-17] MEDS: LORazepam 1 MG TABLET PO (08:29)
[2023-01-17 09:23] VITALS: BP 116/68; PULSE 79
[2023-01-17 10:20] VITALS: BMI 24.6
[2023-01-17] MEDS: clonazePAM 0.5 MG TABLET PO ×2 (12:32→21:30)
[2023-01-17 16:38] VITALS: BP 170/80; PULSE 70; TEMP 36.3; O2SAT 96
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
[2023-01-17] MEDS: Melatonin 3 MG TABLET 9 MG PO (21:28)
[2023-01-18] MEDS: LORazepam 1 MG TABLET PO ×2 (04:06→20:08)
[2023-01-18] MEDS: hydrOXYzine HCL 25 MG TABLET PO ×2 (04:06→20:06)
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
[2023-01-18 08:00] VITALS: BP 137/83; PULSE 74; TEMP 36.6; O2SAT 98
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
[2023-01-18] MEDS: amLODIPine Besylate 5 MG TABLET PO (10:25)
[2023-01-18] MEDS: carvediloL 6.25 MG TABLET 18.75 MG PO ×2 (10:25→20:06)
[2023-01-18] MEDS: clonazePAM 0.5 MG TABLET PO ×2 (10:26→20:06)
[2023-01-18 18:00] VITALS: BP 177/79; PULSE 79; RESP 18; TEMP 36.6; O2SAT 100
[2023-01-18] MEDS: carBAMazepine 200 MG TABLET 400 MG PO (20:05)
[2023-01-18] MEDS: Melatonin 3 MG TABLET 9 MG PO (20:06)
[2023-01-18] MEDS: cloNIDine HCL 0.1 MG TABLET PO (20:07)
[2023-01-18] MEDS: Zolpidem Tartrate 5 MG TABLET 10 MG PO (20:07)
[2023-01-19 08:15] VITALS: BP 91/54; PULSE 92; RESP 18; TEMP 36.4; O2SAT 97
[2023-01-19] MEDS: clonazePAM 0.5 MG TABLET PO ×2 (09:54→21:21)
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
[2023-01-19 18:00] VITALS: BP 124/58; PULSE 89; RESP 18; TEMP 36.5; O2SAT 97
[2023-01-19] MEDS: carvediloL 6.25 MG TABLET 18.75 MG PO (21:21)
[2023-01-19] MEDS: Melatonin 3 MG TABLET 9 MG PO (21:21)
[2023-01-20 08:25] VITALS: BP 143/68; PULSE 73; RESP 18; TEMP 37.1; O2SAT 98
[2023-01-20] MEDS: clonazePAM 0.5 MG TABLET PO ×2 (09:32→20:14)
[2023-01-20] MEDS: amLODIPine Besylate 5 MG TABLET PO (09:33)
[2023-01-20] MEDS: carvediloL 6.25 MG TABLET 18.75 MG PO ×2 (09:33→20:14)
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
[2023-01-20 17:40] VITALS: BP 151/84; PULSE 83; RESP 18; O2SAT 97
[2023-01-20] MEDS: cloNIDine HCL 0.1 MG TABLET PO (17:45)
[2023-01-20 18:41] VITALS: BP 125/72; PULSE 81; RESP 18
[2023-01-20] MEDS: Melatonin 3 MG TABLET 9 MG PO (20:14)
[2023-01-20] MEDS: LORazepam 1 MG TABLET PO (20:14)
[2023-01-20] MEDS: Zolpidem Tartrate 5 MG TABLET 10 MG PO (20:15)
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
[2023-01-21] MEDS: clonazePAM 0.5 MG TABLET PO ×2 (09:17→20:50)
[2023-01-21] MEDS: amLODIPine Besylate 5 MG TABLET PO (09:17)
[2023-01-21] MEDS: carvediloL 6.25 MG TABLET 18.75 MG PO ×2 (09:17→20:47)
[2023-01-21 12:33] VITALS: BP 124/67; PULSE 73; RESP 18
--- NOTE | 2023-01-21 15:30 | PM.EVENT ---
Event Note Date of Service: 01/21/23 Event Note: Blood pressures greatly improved. Continue current antihypertensives. Limit use of clonidine to avoid hypotension. Will sign off at this time. Please do not hesitate to reach out with any questions or acute medical concerns Time Spent With Patient Time: Total time managing care of this patient today ____ minutes.
[2023-01-21 18:00] VITALS: BP 172/91; PULSE 85; RESP 18; TEMP 36.7; O2SAT 97
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
[2023-01-21] MEDS: Melatonin 3 MG TABLET 9 MG PO (20:48)
[2023-01-21] MEDS: carBAMazepine 200 MG TABLET 400 MG PO (20:48)
[2023-01-21] MEDS: LORazepam 1 MG TABLET PO (20:50)
[2023-01-21] MEDS: cloNIDine HCL 0.1 MG TABLET PO (21:00)
[2023-01-22 06:00] VITALS: BP 135/78; PULSE 84; RESP 18; TEMP 36.1; O2SAT 97
[2023-01-22] MEDS: carvediloL 6.25 MG TABLET 18.75 MG PO ×2 (08:54→21:03)
[2023-01-22] MEDS: amLODIPine Besylate 5 MG TABLET PO (08:55)
[2023-01-22] MEDS: clonazePAM 0.5 MG TABLET PO (08:55)
[2023-01-22 18:00] VITALS: BP 178/86; PULSE 78; RESP 18; TEMP 36.6; O2SAT 98
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
[2023-01-22] MEDS: clonazePAM 1 MG TABLET PO (21:03)
[2023-01-22] MEDS: Melatonin 3 MG TABLET 9 MG PO (21:03)
[2023-01-22] MEDS: LORazepam 1 MG TABLET PO (21:06)
[2023-01-22] MEDS: cloNIDine HCL 0.1 MG TABLET PO (21:17)
[2023-01-23 08:22] VITALS: BP 138/81; PULSE 75; RESP 16; TEMP 36.5; O2SAT 97
[2023-01-23] MEDS: Perphenazine 4 MG TABLET PO ×2 (08:58→20:45)
[2023-01-23] MEDS: cloNIDine HCL 0.1 MG TABLET PO (08:58)
[2023-01-23] MEDS: carBAMazepine 200 MG TABLET 400 MG PO (08:58)
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
[2023-01-23 20:06] VITALS: BP 186/125; PULSE 120; RESP 20; TEMP 36.3; O2SAT 95
[2023-01-23] MEDS: clonazePAM 1 MG TABLET PO (20:44)
[2023-01-23] MEDS: Melatonin 3 MG TABLET 9 MG PO (20:44)
[2023-01-23] MEDS: carvediloL 6.25 MG TABLET 18.75 MG PO (20:45)
--- NOTE | 2023-01-23 21:04 | PC.NURSE ---
Pt shouted ?Bitch!? at a peer and approached her. Pt raised her hands to the peer and continued to approach the peer. Staff intervened and stood between the pt and the peer. Both continued to shout. Staff escorted pt back to her room.
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
[2023-01-23 22:00] VITALS: BP 131/72; PULSE 101
[2023-01-24 07:00] VITALS: BMI 25.7
[2023-01-24 08:10] VITALS: BP 145/75; PULSE 89; RESP 16; TEMP 36.9; O2SAT 98
[2023-01-24] MEDS: carvediloL 6.25 MG TABLET 18.75 MG PO ×2 (08:17→21:00)
[2023-01-24] MEDS: LORazepam 1 MG TABLET PO (08:17)
[2023-01-24] MEDS: carBAMazepine 200 MG TABLET 400 MG PO (08:17)
[2023-01-24] MEDS: clonazePAM 1 MG TABLET PO ×2 (08:17→21:01)
[2023-01-24] MEDS: Perphenazine 4 MG TABLET PO (08:17)
[2023-01-24] MEDS: amLODIPine Besylate 5 MG TABLET PO (08:17)
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
[2023-01-24 20:50] VITALS: BP 149/70; PULSE 82; TEMP 36.3
[2023-01-24] MEDS: Melatonin 3 MG TABLET 9 MG PO (20:59)
[2023-01-24] MEDS: Acetaminophen 325 MG TABLET 650 MG PO (21:52)
[2023-01-24] MEDS: Zolpidem Tartrate 5 MG TABLET 10 MG PO (21:53)
--- NOTE | 2023-01-25 03:47 | PC.NURSE ---
pt refusing to limit fluid intake to 1,000mL per day. pt stated to RN ill drink out of the sink if I have to. It's my right to drink whatever the fuck I want .
[2023-01-25] MEDS: Acetaminophen 325 MG TABLET 650 MG PO ×2 (05:26→17:28)
[2023-01-25 08:22] VITALS: BP 124/72; PULSE 82; RESP 16; TEMP 36.8; O2SAT 97
[2023-01-25] MEDS: carvediloL 6.25 MG TABLET 18.75 MG PO ×2 (09:38→21:44)
[2023-01-25] MEDS: clonazePAM 1 MG TABLET PO ×2 (09:38→21:46)
[2023-01-25] MEDS: Perphenazine 4 MG TABLET PO (09:38)
[2023-01-25] MEDS: amLODIPine Besylate 5 MG TABLET PO (09:38)
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
[2023-01-25 16:33] VITALS: BP 138/72; PULSE 89; RESP 16; TEMP 36.3; O2SAT 98
[2023-01-25 21:40] VITALS: BP 140/101; PULSE 102
[2023-01-25] MEDS: Haloperidol Lactate Oral Conc 10 MG/5 ML ORAL.CONC 5 MG PO (21:43)
[2023-01-25] MEDS: Melatonin 3 MG TABLET 9 MG PO (21:44)
[2023-01-25] MEDS: Zolpidem Tartrate 5 MG TABLET 10 MG PO (21:45)
[2023-01-25] MEDS: lamoTRIgine 25 MG TABLET PO (21:46)
--- NOTE | 2023-01-26 02:18 | PC.NURSE ---
PT refusing to comply with 1,000 ml fluid restriction. Ice offered, PT refused demanding water, It is my body my right. Education given, PT given full cup of ice with 60ml water. PT accepted this.
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
[2023-01-26] MEDS: Acetaminophen 325 MG TABLET 650 MG PO ×2 (06:49→14:51)
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
[2023-01-26] MEDS: clonazePAM 1 MG TABLET PO ×2 (09:21→20:35)
[2023-01-26] MEDS: carvediloL 6.25 MG TABLET 18.75 MG PO ×2 (09:21→20:36)
[2023-01-26] MEDS: amLODIPine Besylate 5 MG TABLET PO (09:21)
[2023-01-26] MEDS: Haloperidol Lactate Oral Conc 10 MG/5 ML ORAL.CONC 5 MG PO ×2 (09:23→20:36)
[2023-01-26 16:50] VITALS: BP 145/86; PULSE 78; RESP 18; TEMP 36.2; O2SAT 99
[2023-01-26] MEDS: cloNIDine HCL 0.1 MG TABLET PO (17:01)
[2023-01-26] MEDS: Zolpidem Tartrate 5 MG TABLET 10 MG PO (20:36)
[2023-01-26] MEDS: lamoTRIgine 25 MG TABLET PO (20:36)
[2023-01-26] MEDS: Melatonin 3 MG TABLET 9 MG PO (20:36)
[2023-01-27] MEDS: Acetaminophen 325 MG TABLET 650 MG PO ×2 (00:20→08:25)
[2023-01-27] MEDS: LORazepam 1 MG TABLET PO ×2 (00:20→12:09)
[2023-01-27 07:48] LABS: MANUAL DIFF FLAG NO
[2023-01-27 07:51] LABS: Basophils Percent Auto 0.6 % (0-2); Eosinophils Absolute Auto 0.1 X10*3/uL (0.0-0.4); Eosinophils Percent Auto 1.3 % (0-4); Hematocrit 35.4 % (37.0-47.0); Hemoglobin 12.2 g/dl (12.0-16.0); Imm Gran Abs Auto 0.01 X10*3/uL (0.00-0.03); Imm Gran Pct Auto 0.1 % (0.0-0.4); Lymphocytes Absolute Auto 1.6 X10*3/uL (1.2-4.9); Lymphocytes Percent Auto 23.6 % (20-40); Mean Corpuscular HGB Conc 34.5 g/dl (31.0-35.0); Mean Platelet Volume 9.5 fL (9.4-12.3); Monocytes Absolute Auto 0.6 X10*3/uL (0.1-1.2); Monocytes Percent Auto 9.1 % (2-11); Neutrophils Absolute Auto 4.4 x10*3/uL (2.0-8.3); Neutrophils Percent Auto 65.3 % (45-73); Platelet Count 272 X10*3/uL (160-400); Red Blood Count 4.07 X10*6/uL (4.20-5.50); Red Cell Distribution Width 12.7 % (11.0-16.0); White Blood Count 6.7 X10*3/uL (4.8-10.8)
[2023-01-27 08:11] LABS: Alanine Aminotransferase 21 U/L (0-31); Alkaline Phosphatase 65 U/L (39-117); Anion Gap 14 (12-20); Aspartate Amino Transferase 23 U/L (5-31); Bilirubin Total 0.3 mg/dL (0.0-1.0); Blood Urea Nitrogen 6 mg/dL (9-16); Calcium 9.6 mg/dL (8.4-10.2); Carbon Dioxide 22 mmol/L (22-29); Chloride 105 mmol/L (96-108); Creatinine Clr Calc Pharmacy 74.5; Estimated Glomerular Filt Rate > 60; Glucose Random 100 mg/dL (60-115); Sodium 137 mmol/L (135-145); Total Protein 6.8 g/dL (6.5-8.0)
[2023-01-27 09:00] VITALS: BP 190/121; PULSE 75; TEMP 36; O2SAT 100
[2023-01-27] MEDS: clonazePAM 1 MG TABLET PO ×2 (09:09→21:38)
[2023-01-27] MEDS: carvediloL 6.25 MG TABLET 18.75 MG PO ×2 (09:09→21:38)
[2023-01-27] MEDS: Haloperidol Lactate Oral Conc 10 MG/5 ML ORAL.CONC 5 MG PO ×2 (09:09→21:39)
[2023-01-27] MEDS: Multivitamin TABLET 1 TAB PO (09:10)
[2023-01-27] MEDS: amLODIPine Besylate 5 MG TABLET PO (09:10)
[2023-01-27 09:30] VITALS: BP 148/98
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
[2023-01-27 11:49] VITALS: BP 128/84
[2023-01-27 21:20] VITALS: BP 148/84; PULSE 93; RESP 17; TEMP 36.8; O2SAT 99
[2023-01-27] MEDS: Melatonin 3 MG TABLET 9 MG PO (21:38)
[2023-01-27] MEDS: lamoTRIgine 25 MG TABLET PO (21:38)
[2023-01-28] MEDS: Acetaminophen 325 MG TABLET 650 MG PO ×3 (06:32→20:59)
[2023-01-28 08:09] VITALS: BP 168/91; PULSE 80; RESP 16; TEMP 36.4; O2SAT 98
[2023-01-28] MEDS: cloNIDine HCL 0.1 MG TABLET PO ×2 (08:14→20:59)
[2023-01-28] MEDS: carvediloL 6.25 MG TABLET 18.75 MG PO ×2 (09:06→20:48)
[2023-01-28] MEDS: Multivitamin TABLET 1 TAB PO (09:06)
[2023-01-28] MEDS: amLODIPine Besylate 5 MG TABLET PO (09:06)
[2023-01-28] MEDS: clonazePAM 1 MG TABLET PO ×2 (09:06→20:49)
[2023-01-28] MEDS: Haloperidol Lactate Oral Conc 10 MG/5 ML ORAL.CONC 5 MG PO ×2 (09:06→20:51)
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
[2023-01-28 20:15] VITALS: BP 153/88; PULSE 77; TEMP 36.3
[2023-01-28] MEDS: lamoTRIgine 25 MG TABLET PO (20:49)
[2023-01-28] MEDS: Melatonin 3 MG TABLET 9 MG PO (20:49)
[2023-01-28] MEDS: Zolpidem Tartrate 5 MG TABLET 10 MG PO (20:58)
[2023-01-29] MEDS: Acetaminophen 325 MG TABLET 650 MG PO ×2 (05:22→20:22)
[2023-01-29 08:00] VITALS: BP 178/96; PULSE 86; RESP 16; TEMP 36.2; O2SAT 97
[2023-01-29] MEDS: Haloperidol Lactate Oral Conc 10 MG/5 ML ORAL.CONC 5 MG PO ×2 (08:15→20:16)
[2023-01-29] MEDS: carvediloL 6.25 MG TABLET 18.75 MG PO ×2 (08:16→20:14)
[2023-01-29] MEDS: Multivitamin TABLET 1 TAB PO (08:16)
[2023-01-29] MEDS: amLODIPine Besylate 5 MG TABLET PO (08:16)
[2023-01-29] MEDS: clonazePAM 1 MG TABLET PO ×2 (08:16→20:15)
[2023-01-29] MEDS: cloNIDine HCL 0.1 MG TABLET PO ×2 (08:16→16:55)
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
[2023-01-29 16:50] VITALS: BP 149/95; PULSE 76; RESP 16; TEMP 36.3; O2SAT 98
[2023-01-29] MEDS: LORazepam 1 MG TABLET PO (20:15)
[2023-01-29] MEDS: Melatonin 3 MG TABLET 9 MG PO (20:15)
[2023-01-29] MEDS: lamoTRIgine 25 MG TABLET PO (20:15)
[2023-01-30] MEDS: Magnesium Hydrox/Alum Hydrox 30 ML ORAL.SUSP PO (01:19)
[2023-01-30] MEDS: Milk of Magnesia 30 ML ORAL.SUSP PO (08:51)
[2023-01-30 08:52] VITALS: BP 124/62; PULSE 96; RESP 16; TEMP 36.2; O2SAT 99
[2023-01-30] MEDS: Haloperidol Lactate Oral Conc 10 MG/5 ML ORAL.CONC 5 MG PO (08:52)
[2023-01-30] MEDS: carvediloL 6.25 MG TABLET 18.75 MG PO ×2 (08:52→21:00)
[2023-01-30] MEDS: Multivitamin TABLET 1 TAB PO (08:53)
[2023-01-30] MEDS: amLODIPine Besylate 5 MG TABLET PO (08:53)
[2023-01-30] MEDS: clonazePAM 1 MG TABLET PO ×2 (08:53→21:00)
[2023-01-30] MEDS: Acetaminophen 325 MG TABLET 650 MG PO ×2 (10:09→16:59)
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
[2023-01-30 18:00] VITALS: BP 158/74; PULSE 75; TEMP 36.1; O2SAT 100
[2023-01-30] MEDS: cloNIDine HCL 0.1 MG TABLET PO (18:43)
[2023-01-30] MEDS: lamoTRIgine 25 MG TABLET PO (21:00)
[2023-01-30] MEDS: HaloperidoL 5 MG TABLET PO (21:00)
[2023-01-30] MEDS: Melatonin 3 MG TABLET 9 MG PO (21:00)
[2023-01-30] MEDS: Zolpidem Tartrate 5 MG TABLET 10 MG PO (21:00)
[2023-01-31] MEDS: Acetaminophen 325 MG TABLET 650 MG PO ×3 (01:59→20:30)
[2023-01-31 06:00] VITALS: BP 152/79; PULSE 72; RESP 18; TEMP 36.1; O2SAT 99
[2023-01-31 07:00] VITALS: BMI 25.1
[2023-01-31] MEDS: carvediloL 6.25 MG TABLET 18.75 MG PO ×2 (09:04→20:22)
[2023-01-31] MEDS: Multivitamin TABLET 1 TAB PO (09:04)
[2023-01-31] MEDS: amLODIPine Besylate 5 MG TABLET PO (09:04)
[2023-01-31] MEDS: clonazePAM 1 MG TABLET PO ×2 (09:04→20:24)
[2023-01-31] MEDS: HaloperidoL 0.5 MG TABLET 2.5 MG PO (09:04)
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
[2023-01-31 18:00] VITALS: PULSE 77; RESP 18; TEMP 36.9; O2SAT 100
[2023-01-31] MEDS: Zolpidem Tartrate 5 MG TABLET 10 MG PO (20:22)
[2023-01-31] MEDS: Melatonin 3 MG TABLET 9 MG PO (20:23)
[2023-01-31] MEDS: HaloperidoL 5 MG TABLET PO (20:24)
[2023-01-31] MEDS: Benztropine Mesylate 0.5 MG TABLET PO (20:24)
[2023-01-31] MEDS: lamoTRIgine 25 MG TABLET PO (20:24)
[2023-02-01 02:30] VITALS: BP 140/76
[2023-02-01] MEDS: cloNIDine HCL 0.1 MG TABLET PO (02:31)
[2023-02-01 08:30] VITALS: BP 134/74; PULSE 80; TEMP 36.2; O2SAT 98
[2023-02-01] MEDS: carvediloL 6.25 MG TABLET 18.75 MG PO ×2 (08:58→21:44)
[2023-02-01] MEDS: clonazePAM 1 MG TABLET PO ×2 (08:58→21:30)
[2023-02-01] MEDS: Multivitamin TABLET 1 TAB PO (08:59)
[2023-02-01] MEDS: amLODIPine Besylate 5 MG TABLET PO (08:59)
[2023-02-01] MEDS: HaloperidoL 0.5 MG TABLET 2.5 MG PO (08:59)
[2023-02-01] MEDS: Acetaminophen 325 MG TABLET 650 MG PO ×2 (09:07→18:37)
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
[2023-02-01 14:51] VITALS: BP 112/56; PULSE 85; RESP 16
[2023-02-01 17:44] VITALS: BP 140/83; PULSE 77; RESP 18; TEMP 36.6; O2SAT 99
[2023-02-01] MEDS: Zolpidem Tartrate 5 MG TABLET 10 MG PO (21:30)
[2023-02-01] MEDS: Benztropine Mesylate 0.5 MG TABLET PO (21:30)
[2023-02-01] MEDS: lamoTRIgine 25 MG TABLET 50 MG PO (21:31)
[2023-02-01] MEDS: HaloperidoL 5 MG TABLET PO (21:31)
[2023-02-01] MEDS: Melatonin 3 MG TABLET 9 MG PO (21:46)
[2023-02-02] MEDS: Acetaminophen 325 MG TABLET 650 MG PO ×2 (05:22→19:39)
[2023-02-02 08:15] VITALS: BP 145/77; PULSE 70; RESP 16; TEMP 36.3; O2SAT 99
[2023-02-02] MEDS: HaloperidoL 5 MG TABLET PO ×2 (08:29→20:48)
[2023-02-02] MEDS: clonazePAM 1 MG TABLET PO ×2 (08:29→20:46)
[2023-02-02] MEDS: Multivitamin TABLET 1 TAB PO (08:29)
[2023-02-02] MEDS: amLODIPine Besylate 5 MG TABLET PO (08:29)
[2023-02-02] MEDS: carvediloL 6.25 MG TABLET 18.75 MG PO ×2 (08:29→20:46)
[2023-02-02] MEDS: Clotrimazole 1 % Cream 15 GM TUBE 1 APPL TOPICAL (08:30)
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
--- NOTE | 2023-02-02 20:33 | PC.NURSE ---
This nurse assumed care of this pt at 19:30, visible in hallway, talkative, in no apparent distress. Plan of care ongoing.
[2023-02-02] MEDS: lamoTRIgine 25 MG TABLET 50 MG PO (20:45)
[2023-02-02] MEDS: Benztropine Mesylate 0.5 MG TABLET PO (20:47)
[2023-02-02] MEDS: Zolpidem Tartrate 5 MG TABLET 10 MG PO (20:47)
[2023-02-02] MEDS: Melatonin 3 MG TABLET 9 MG PO (20:48)
[2023-02-03] MEDS: Acetaminophen 325 MG TABLET 650 MG PO ×3 (02:40→23:23)
[2023-02-03 06:00] VITALS: BP 122/76; PULSE 62; RESP 16; TEMP 36.5; O2SAT 99
[2023-02-03] MEDS: Multivitamin TABLET 1 TAB PO (08:27)
[2023-02-03] MEDS: amLODIPine Besylate 5 MG TABLET PO (08:27)
[2023-02-03] MEDS: HaloperidoL 5 MG TABLET PO ×2 (08:27→21:21)
[2023-02-03] MEDS: carvediloL 6.25 MG TABLET 18.75 MG PO ×2 (08:27→21:19)
[2023-02-03] MEDS: clonazePAM 1 MG TABLET PO ×2 (08:27→21:21)
[2023-02-03] MEDS: Melatonin 3 MG TABLET 9 MG PO (21:20)
[2023-02-03] MEDS: lamoTRIgine 25 MG TABLET 50 MG PO (21:21)
[2023-02-03] MEDS: Benztropine Mesylate 0.5 MG TABLET PO (21:22)
[2023-02-03 21:45] VITALS: BP 149/78; PULSE 68; TEMP 36.4
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
[2023-02-03] MEDS: Zolpidem Tartrate 5 MG TABLET 10 MG PO (23:24)
[2023-02-04] MEDS: Milk of Magnesia 30 ML ORAL.SUSP PO (03:29)
[2023-02-04] MEDS: Acetaminophen 325 MG TABLET 650 MG PO (06:09)
[2023-02-04 09:10] VITALS: BP 119/64; PULSE 68; RESP 16; TEMP 37.1; O2SAT 100
[2023-02-04] MEDS: clonazePAM 1 MG TABLET PO ×2 (09:20→20:39)
[2023-02-04] MEDS: Multivitamin TABLET 1 TAB PO (09:20)
[2023-02-04] MEDS: amLODIPine Besylate 5 MG TABLET PO (09:20)
[2023-02-04] MEDS: carvediloL 6.25 MG TABLET 18.75 MG PO ×2 (09:20→20:37)
[2023-02-04 18:00] VITALS: BP 107/58; PULSE 74; RESP 18; TEMP 35.9; O2SAT 98
[2023-02-04] MEDS: Zolpidem Tartrate 5 MG TABLET 10 MG PO (20:36)
[2023-02-04] MEDS: lamoTRIgine 25 MG TABLET 50 MG PO (20:37)
[2023-02-04] MEDS: Benztropine Mesylate 0.5 MG TABLET PO (20:38)
[2023-02-04] MEDS: Melatonin 3 MG TABLET 9 MG PO (20:38)
[2023-02-04] MEDS: HaloperidoL 5 MG TABLET PO (20:39)
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
[2023-02-05] MEDS: Acetaminophen 325 MG TABLET 650 MG PO ×2 (01:41→17:27)
[2023-02-05 06:00] VITALS: BP 129/77; PULSE 72; RESP 18; TEMP 36.4; O2SAT 99
[2023-02-05] MEDS: Clotrimazole 1 % Cream 15 GM TUBE 1 APPL TOPICAL ×2 (07:57→21:22)
[2023-02-05] MEDS: Multivitamin TABLET 1 TAB PO (07:58)
[2023-02-05] MEDS: amLODIPine Besylate 5 MG TABLET PO (07:58)
[2023-02-05] MEDS: HaloperidoL 5 MG TABLET PO ×2 (07:59→20:41)
[2023-02-05] MEDS: clonazePAM 1 MG TABLET PO ×2 (07:59→20:40)
[2023-02-05] MEDS: carvediloL 6.25 MG TABLET 18.75 MG PO ×2 (07:59→20:41)
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
[2023-02-05 18:00] VITALS: BP 135/65; PULSE 66; TEMP 36.4; O2SAT 99
[2023-02-05 20:33] VITALS: BP 169/79; PULSE 71
[2023-02-05] MEDS: Benztropine Mesylate 0.5 MG TABLET PO (20:40)
[2023-02-05] MEDS: Zolpidem Tartrate 5 MG TABLET 10 MG PO (20:40)
[2023-02-05] MEDS: lamoTRIgine 25 MG TABLET 50 MG PO (20:40)
[2023-02-05] MEDS: Melatonin 3 MG TABLET 9 MG PO (20:41)
[2023-02-06] MEDS: Acetaminophen 325 MG TABLET 650 MG PO ×2 (05:06→17:33)
[2023-02-06 07:55] VITALS: BP 150/82; PULSE 64; RESP 18; TEMP 36.4; O2SAT 100
[2023-02-06] MEDS: clonazePAM 1 MG TABLET PO ×2 (08:09→20:42)
[2023-02-06] MEDS: Clotrimazole 1 % Cream 15 GM TUBE 1 APPL TOPICAL (08:09)
[2023-02-06] MEDS: Multivitamin TABLET 1 TAB PO (08:09)
[2023-02-06] MEDS: amLODIPine Besylate 5 MG TABLET PO (08:09)
[2023-02-06] MEDS: carvediloL 6.25 MG TABLET 18.75 MG PO ×2 (08:09→20:42)
[2023-02-06] MEDS: HaloperidoL 5 MG TABLET PO ×2 (08:09→20:42)
[2023-02-06] MEDS: cloNIDine HCL 0.1 MG TABLET PO (08:16)
[2023-02-06 08:51] LABS: MANUAL DIFF FLAG NO
[2023-02-06 08:56] LABS: Basophils Percent Auto 0.7 % (0-2); Eosinophils Absolute Auto 0.2 X10*3/uL (0.0-0.4); Eosinophils Percent Auto 2.5 % (0-4); Hematocrit 32.6 % (37.0-47.0); Hemoglobin 11.3 g/dl (12.0-16.0); Imm Gran Abs Auto 0.02 X10*3/uL (0.00-0.03); Imm Gran Pct Auto 0.3 % (0.0-0.4); Lymphocytes Absolute Auto 1.8 X10*3/uL (1.2-4.9); Lymphocytes Percent Auto 29.1 % (20-40); Mean Corpuscular HGB Conc 34.7 g/dl (31.0-35.0); Mean Corpuscular Hemoglobin 30.5 pg (27.0-33.0); Mean Corpuscular Volume 88.1 fL (80.0-98.0); Mean Platelet Volume 9.2 fL (9.4-12.3); Monocytes Absolute Auto 0.5 X10*3/uL (0.1-1.2); Neutrophils Absolute Auto 3.6 x10*3/uL (2.0-8.3); Neutrophils Percent Auto 59.4 % (45-73); Platelet Count 285 X10*3/uL (160-400); Red Cell Distribution Width 12.8 % (11.0-16.0); White Blood Count 6.1 X10*3/uL (4.8-10.8)
[2023-02-06 09:09] LABS: Alanine Aminotransferase 21 U/L (0-31); Albumin Level 3.8 g/dL (3.5-5.0); Alkaline Phosphatase 56 U/L (39-117); Anion Gap 11 (12-20); Aspartate Amino Transferase 18 U/L (5-31); Bilirubin Total 0.3 mg/dL (0.0-1.0); Blood Urea Nitrogen 10 mg/dL (9-16); Calcium 9.4 mg/dL (8.4-10.2); Carbon Dioxide 24 mmol/L (22-29); Chloride 102 mmol/L (96-108); Creatinine Clr Calc Pharmacy 76.1; Estimated Glomerular Filt Rate > 60; Glucose Random 101 mg/dL (60-115); Potassium 4.4 mmol/L (3.3-5.1); Sodium 133 mmol/L (135-145); Total Protein 6.7 g/dL (6.5-8.0)
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
[2023-02-06 18:00] VITALS: BP 121/65; PULSE 72; RESP 16; TEMP 36.3; O2SAT 99
[2023-02-06 20:35] VITALS: BP 160/76; PULSE 68
[2023-02-06] MEDS: lamoTRIgine 25 MG TABLET 50 MG PO (20:42)
[2023-02-06] MEDS: Melatonin 3 MG TABLET 9 MG PO (20:42)
[2023-02-06] MEDS: Zolpidem Tartrate 5 MG TABLET 10 MG PO (20:42)
[2023-02-06] MEDS: Benztropine Mesylate 0.5 MG TABLET PO (20:42)
[2023-02-07] MEDS: Acetaminophen 325 MG TABLET 650 MG PO ×2 (06:31→15:51)
[2023-02-07 07:00] VITALS: BMI 24.7
[2023-02-07 08:11] VITALS: BP 153/78; PULSE 64; RESP 18; TEMP 36.3; O2SAT 98
[2023-02-07] MEDS: HaloperidoL 5 MG TABLET PO ×2 (08:27→20:52)
[2023-02-07] MEDS: Multivitamin TABLET 1 TAB PO (08:27)
[2023-02-07] MEDS: amLODIPine Besylate 5 MG TABLET PO (08:27)
[2023-02-07] MEDS: clonazePAM 1 MG TABLET PO ×2 (08:27→20:52)
[2023-02-07] MEDS: carvediloL 6.25 MG TABLET 18.75 MG PO ×2 (08:27→20:53)
[2023-02-07 13:17] VITALS: BP 125/68; PULSE 68
[2023-02-07 19:45] VITALS: BP 144/79; PULSE 64; TEMP 2.4; TEMP 36.3
[2023-02-07] MEDS: lamoTRIgine 25 MG TABLET 50 MG PO (20:51)
[2023-02-07] MEDS: Zolpidem Tartrate 5 MG TABLET 10 MG PO (20:51)
[2023-02-07] MEDS: Benztropine Mesylate 0.5 MG TABLET PO (20:52)
[2023-02-07] MEDS: Melatonin 3 MG TABLET 9 MG PO (20:52)
[2023-02-07] MEDS: Clotrimazole 1 % Cream 15 GM TUBE 1 APPL TOPICAL (20:58)
[2023-02-08] MEDS: Acetaminophen 325 MG TABLET 650 MG PO ×2 (05:45→11:56)
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
[2023-02-08 08:00] VITALS: BP 136/80; PULSE 62; TEMP 36.3; O2SAT 100
[2023-02-08] MEDS: Multivitamin TABLET 1 TAB PO (08:48)
[2023-02-08] MEDS: HaloperidoL 5 MG TABLET PO ×2 (08:49→20:53)
[2023-02-08] MEDS: clonazePAM 1 MG TABLET PO ×2 (08:49→20:54)
[2023-02-08] MEDS: carvediloL 6.25 MG TABLET 18.75 MG PO ×2 (08:49→20:52)
[2023-02-08] MEDS: amLODIPine Besylate 5 MG TABLET PO (08:49)
[2023-02-08] MEDS: Clotrimazole 1 % Cream 15 GM TUBE 1 APPL TOPICAL (09:00)
[2023-02-08] MEDS: Milk of Magnesia 30 ML ORAL.SUSP PO (12:33)
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
[2023-02-08 18:00] VITALS: BP 116/58; PULSE 66; RESP 18; TEMP 36.8; O2SAT 99
[2023-02-08] MEDS: lamoTRIgine 25 MG TABLET 50 MG PO (20:53)
[2023-02-08] MEDS: Benztropine Mesylate 0.5 MG TABLET PO (20:53)
[2023-02-08] MEDS: Melatonin 3 MG TABLET 9 MG PO (20:53)
[2023-02-08] MEDS: Zolpidem Tartrate 5 MG TABLET 10 MG PO (20:57)
[2023-02-09] MEDS: Acetaminophen 325 MG TABLET 650 MG PO ×2 (06:14→18:58)
[2023-02-09 08:20] VITALS: BP 138/79; PULSE 71; TEMP 36.2; O2SAT 98
[2023-02-09] MEDS: carvediloL 6.25 MG TABLET 18.75 MG PO ×2 (08:35→20:26)
[2023-02-09] MEDS: HaloperidoL 5 MG TABLET PO ×2 (08:35→20:26)
[2023-02-09] MEDS: clonazePAM 1 MG TABLET PO ×2 (08:35→20:27)
[2023-02-09] MEDS: Clotrimazole 1 % Cream 15 GM TUBE 1 APPL TOPICAL (08:36)
[2023-02-09] MEDS: Multivitamin TABLET 1 TAB PO (08:36)
[2023-02-09] MEDS: amLODIPine Besylate 5 MG TABLET PO (08:36)
[2023-02-09 20:13] VITALS: BP 151/73; PULSE 65; TEMP 36.1; O2SAT 100
[2023-02-09] MEDS: lamoTRIgine 25 MG TABLET 50 MG PO (20:26)
[2023-02-09] MEDS: Melatonin 3 MG TABLET 9 MG PO (20:26)
[2023-02-09] MEDS: Benztropine Mesylate 0.5 MG TABLET PO (20:26)
[2023-02-09] MEDS: cloNIDine HCL 0.1 MG TABLET PO (20:26)
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
[2023-02-10 08:00] VITALS: BP 120/75; PULSE 59; TEMP 35.9; O2SAT 95
[2023-02-10] MEDS: clonazePAM 1 MG TABLET PO ×2 (08:59→20:30)
[2023-02-10] MEDS: carvediloL 6.25 MG TABLET 18.75 MG PO ×2 (08:59→20:30)
[2023-02-10] MEDS: amLODIPine Besylate 5 MG TABLET PO (08:59)
[2023-02-10] MEDS: Multivitamin TABLET 1 TAB PO (08:59)
[2023-02-10] MEDS: HaloperidoL 5 MG TABLET PO ×2 (08:59→20:31)
--- NOTE | 2023-02-10 09:42 | PM.EVENT ---
Event Note Date of Service: 02/12/23 Event Note: Events noted Chronic hyponatremia with dilute urine Check serum osmolarity and serum sodium Restrict PO Water intake to 1.2 L per 24 hours Full consult to follow Thanks Time Spent With Patient Time: Total time managing care of this patient today ____ minutes.
[2023-02-10] MEDS: Clotrimazole 1 % Cream 15 GM TUBE 1 APPL TOPICAL ×2 (10:26→20:30)
[2023-02-10 16:55] VITALS: BP 125/80; PULSE 64; RESP 16; TEMP 36.4; O2SAT 99
[2023-02-10] MEDS: Acetaminophen 325 MG TABLET 650 MG PO (18:50)
[2023-02-10] MEDS: Melatonin 3 MG TABLET 9 MG PO (20:30)
[2023-02-10] MEDS: Benztropine Mesylate 0.5 MG TABLET PO (20:30)
[2023-02-10] MEDS: Zolpidem Tartrate 5 MG TABLET 10 MG PO (20:30)
[2023-02-10] MEDS: lamoTRIgine 25 MG TABLET 50 MG PO (20:31)
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
[2023-02-11] MEDS: LORazepam 1 MG TABLET PO (03:24)
[2023-02-11] MEDS: amLODIPine Besylate 5 MG TABLET PO (08:32)
[2023-02-11] MEDS: Multivitamin TABLET 1 TAB PO (08:32)
[2023-02-11] MEDS: carvediloL 6.25 MG TABLET 18.75 MG PO ×2 (08:32→20:09)
[2023-02-11] MEDS: HaloperidoL 5 MG TABLET PO ×2 (08:32→20:11)
[2023-02-11] MEDS: clonazePAM 1 MG TABLET PO ×2 (08:32→20:11)
[2023-02-11 08:48] VITALS: BP 147/78; PULSE 63; TEMP 36.1; O2SAT 99
[2023-02-11] MEDS: Clotrimazole 1 % Cream 15 GM TUBE 1 APPL TOPICAL ×2 (09:05→20:17)
[2023-02-11] MEDS: bisacodyL 5 MG TABLET.DR 10 MG PO (09:28)
[2023-02-11 13:01] LABS: Sodium 134 mmol/L (135-145)
[2023-02-11 19:58] VITALS: BP 124/68; PULSE 68; RESP 16; TEMP 36.4
[2023-02-11] MEDS: Melatonin 3 MG TABLET 9 MG PO (20:10)
[2023-02-11] MEDS: lamoTRIgine 25 MG TABLET 50 MG PO (20:10)
[2023-02-11] MEDS: Zolpidem Tartrate 5 MG TABLET 10 MG PO (20:10)
[2023-02-11] MEDS: Benztropine Mesylate 0.5 MG TABLET PO (20:11)
--- NOTE | 2023-02-11 20:34 | PC.NURSE ---
Assumed care of pt @ 19:30. PT laying in bed with eyes open and listening to music with unit headphones. Offers no complaints @ this time. Plan of care ongoing.
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
[2023-02-12] MEDS: Acetaminophen 325 MG TABLET 650 MG PO ×2 (02:18→20:25)
[2023-02-12] MEDS: LORazepam 1 MG TABLET PO (03:22)
[2023-02-12 08:44] VITALS: BP 143/74; PULSE 64; RESP 16; TEMP 36.4; O2SAT 99
[2023-02-12] MEDS: clonazePAM 1 MG TABLET PO ×2 (09:31→20:49)
[2023-02-12] MEDS: HaloperidoL 5 MG TABLET PO ×2 (09:31→20:50)
[2023-02-12] MEDS: carvediloL 6.25 MG TABLET 18.75 MG PO ×2 (09:31→20:49)
[2023-02-12] MEDS: Multivitamin TABLET 1 TAB PO (09:31)
[2023-02-12] MEDS: amLODIPine Besylate 5 MG TABLET PO (09:31)
[2023-02-12] MEDS: Clotrimazole 1 % Cream 15 GM TUBE 1 APPL TOPICAL ×2 (10:15→20:54)
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
[2023-02-12 18:00] VITALS: BP 138/82; PULSE 55; RESP 16; TEMP 36.3; O2SAT 99
[2023-02-12 20:45] VITALS: BP 147/74; PULSE 64; O2SAT 99
[2023-02-12] MEDS: Zolpidem Tartrate 5 MG TABLET 10 MG PO (20:49)
[2023-02-12] MEDS: Melatonin 3 MG TABLET 9 MG PO (20:49)
[2023-02-12] MEDS: lamoTRIgine 25 MG TABLET 50 MG PO (20:49)
[2023-02-12] MEDS: Benztropine Mesylate 0.5 MG TABLET PO (20:49)
[2023-02-13] MEDS: Acetaminophen 325 MG TABLET 650 MG PO (06:50)
[2023-02-13] MEDS: Multivitamin TABLET 1 TAB PO (08:13)
[2023-02-13] MEDS: amLODIPine Besylate 5 MG TABLET PO (08:13)
[2023-02-13] MEDS: clonazePAM 1 MG TABLET PO ×2 (08:13→20:18)
[2023-02-13] MEDS: carvediloL 6.25 MG TABLET 18.75 MG PO ×2 (08:13→20:18)
[2023-02-13] MEDS: HaloperidoL 5 MG TABLET PO ×2 (08:13→20:18)
[2023-02-13 09:12] VITALS: BP 131/71; PULSE 67; RESP 16; TEMP 36.2; O2SAT 98
[2023-02-13] MEDS: Clotrimazole 1 % Cream 15 GM TUBE 1 APPL TOPICAL ×2 (09:18→20:23)
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
[2023-02-13 18:00] VITALS: BP 130/68; PULSE 67; RESP 16
[2023-02-13] MEDS: lamoTRIgine 25 MG TABLET 50 MG PO (20:18)
[2023-02-13] MEDS: Zolpidem Tartrate 5 MG TABLET 10 MG PO (20:18)
[2023-02-13] MEDS: Benztropine Mesylate 0.5 MG TABLET PO (20:18)
[2023-02-13] MEDS: Melatonin 3 MG TABLET 9 MG PO (20:18)
[2023-02-13] MEDS: LORazepam 1 MG TABLET PO (23:19)
[2023-02-14] MEDS: Acetaminophen 325 MG TABLET 650 MG PO ×2 (02:29→11:01)
[2023-02-14] MEDS: Milk of Magnesia 30 ML ORAL.SUSP PO (04:00)
[2023-02-14] MEDS: bisacodyL 5 MG TABLET.DR 10 MG PO (04:00)
[2023-02-14] MEDS: Multivitamin TABLET 1 TAB PO (09:29)
[2023-02-14] MEDS: Clotrimazole 1 % Cream 15 GM TUBE 1 APPL TOPICAL (09:29)
[2023-02-14] MEDS: amLODIPine Besylate 5 MG TABLET PO (09:29)
[2023-02-14] MEDS: HaloperidoL 5 MG TABLET PO (09:29)
[2023-02-14] MEDS: clonazePAM 1 MG TABLET PO ×2 (09:29→20:58)
[2023-02-14 15:37] VITALS: BP 144/72; PULSE 62; RESP 16; TEMP 36.8; O2SAT 100
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
[2023-02-14 18:00] VITALS: BP 136/83; PULSE 73; RESP 20; TEMP 36.6; O2SAT 98
[2023-02-14] MEDS: Benztropine Mesylate 0.5 MG TABLET PO (20:57)
[2023-02-14] MEDS: lamoTRIgine 25 MG TABLET 50 MG PO (20:58)
[2023-02-14] MEDS: Zolpidem Tartrate 5 MG TABLET 10 MG PO (20:58)
[2023-02-14] MEDS: Melatonin 3 MG TABLET 9 MG PO (20:58)
[2023-02-14 22:18] VITALS: BP 122/69; PULSE 60; RESP 18; TEMP 36.5; O2SAT 98
[2023-02-14 22:21] VITALS: BP 137/73; PULSE 81; RESP 16; TEMP 36.8; O2SAT 99
[2023-02-15] MEDS: Acetaminophen 325 MG TABLET 650 MG PO ×2 (04:55→13:23)
[2023-02-15] MEDS: clonazePAM 1 MG TABLET PO ×2 (08:13→20:35)
[2023-02-15] MEDS: amLODIPine Besylate 5 MG TABLET PO (08:14)
[2023-02-15] MEDS: Multivitamin TABLET 1 TAB PO (08:14)
[2023-02-15 08:15] VITALS: BP 150/82; PULSE 62; TEMP 36.4; O2SAT 99
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
[2023-02-15 18:00] VITALS: BP 122/71; PULSE 69; RESP 16; TEMP 36.3; O2SAT 97
--- NOTE | 2023-02-15 19:51 | PC.NURSE ---
Assumed care of pt @ 19:00. PT in bed with eyes closed and appears to be sleeping. Resp even and unlabored, in no apparent distress. Plan of care ongoing.
[2023-02-15] MEDS: Zolpidem Tartrate 5 MG TABLET 10 MG PO (20:35)
[2023-02-15] MEDS: Benztropine Mesylate 0.5 MG TABLET PO (20:35)
[2023-02-15] MEDS: Melatonin 3 MG TABLET 9 MG PO (20:35)
[2023-02-15] MEDS: lamoTRIgine 25 MG TABLET 50 MG PO (20:35)
--- NOTE | 2023-02-15 20:39 | PC.NURSE ---
Called pharmacy for new tube of Lotrimin.
[2023-02-16] MEDS: LORazepam 1 MG TABLET PO (02:22)
[2023-02-16] MEDS: Acetaminophen 325 MG TABLET 650 MG PO ×2 (02:35→09:17)
[2023-02-16] MEDS: amLODIPine Besylate 5 MG TABLET PO (09:17)
[2023-02-16] MEDS: clonazePAM 1 MG TABLET PO (09:18)
[2023-02-16] MEDS: Multivitamin TABLET 1 TAB PO (09:18)
[2023-02-16] MEDS: Clotrimazole 1 % Cream 15 GM TUBE 1 APPL TOPICAL ×2 (09:20→20:49)
[2023-02-16 12:49] VITALS: BP 126/67; PULSE 62; RESP 16; TEMP 36.4; O2SAT 99
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
[2023-02-16 18:00] VITALS: BP 101/58; PULSE 77; RESP 18; TEMP 36.7; O2SAT 97
[2023-02-16] MEDS: Melatonin 3 MG TABLET 9 MG PO (20:46)
[2023-02-16] MEDS: lamoTRIgine 25 MG TABLET 50 MG PO (20:47)
[2023-02-16] MEDS: Benztropine Mesylate 0.5 MG TABLET PO (20:47)
[2023-02-16] MEDS: Zolpidem Tartrate 5 MG TABLET 10 MG PO (20:48)
[2023-02-17] MEDS: Acetaminophen 325 MG TABLET 650 MG PO ×3 (00:09→23:39)
[2023-02-17] MEDS: Milk of Magnesia 30 ML ORAL.SUSP PO (04:51)
[2023-02-17 06:00] VITALS: BP 121/74; PULSE 58; RESP 16; TEMP 36.2; O2SAT 99
[2023-02-17] MEDS: amLODIPine Besylate 5 MG TABLET PO (08:53)
[2023-02-17] MEDS: Multivitamin TABLET 1 TAB PO (08:53)
[2023-02-17] MEDS: Clotrimazole 1 % Cream 15 GM TUBE 1 APPL TOPICAL (09:21)
[2023-02-17] MEDS: Melatonin 3 MG TABLET 9 MG PO (20:20)
[2023-02-17] MEDS: lamoTRIgine 25 MG TABLET 50 MG PO (20:22)
[2023-02-17 20:35] VITALS: BP 101/59; PULSE 88; RESP 18; TEMP 36.3; O2SAT 97
[2023-02-17] MEDS: Zolpidem Tartrate 5 MG TABLET 10 MG PO (20:55)
[2023-02-17] MEDS: LORazepam 1 MG TABLET PO (23:40)
[2023-02-18] MEDS: Acetaminophen 325 MG TABLET 650 MG PO ×2 (06:09→17:00)
[2023-02-18 08:00] VITALS: BP 138/81; PULSE 60; RESP 18; TEMP 36.3; O2SAT 99
[2023-02-18] MEDS: Multivitamin TABLET 1 TAB PO (08:33)
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
[2023-02-18 18:00] VITALS: BP 119/71; PULSE 68; RESP 18; TEMP 36.3; O2SAT 98
[2023-02-18] MEDS: clonazePAM 1 MG TABLET PO (20:18)
[2023-02-18] MEDS: Melatonin 3 MG TABLET 9 MG PO (20:18)
[2023-02-18] MEDS: lamoTRIgine 25 MG TABLET 75 MG PO (20:18)
[2023-02-18] MEDS: Benztropine Mesylate 0.5 MG TABLET PO (20:19)
[2023-02-18] MEDS: Zolpidem Tartrate 5 MG TABLET 10 MG PO (20:19)
[2023-02-18] MEDS: carvediloL 6.25 MG TABLET 18.75 MG PO (20:19)
[2023-02-19] MEDS: LORazepam 1 MG TABLET PO (01:08)
[2023-02-19] MEDS: amLODIPine Besylate 5 MG TABLET PO (08:09)
[2023-02-19] MEDS: carvediloL 6.25 MG TABLET 18.75 MG PO (08:09)
[2023-02-19] MEDS: Multivitamin TABLET 1 TAB PO (08:09)
[2023-02-19] MEDS: clonazePAM 1 MG TABLET PO (08:09)
[2023-02-19] MEDS: Acetaminophen 325 MG TABLET 650 MG PO (08:09)
[2023-02-19] MEDS: HaloperidoL 5 MG TABLET PO (08:09)
[2023-02-19 09:27] LABS: MANUAL DIFF FLAG NO
[2023-02-19 09:29] LABS: Basophils Absolute Auto 0.1 X10*3/uL (0.0-0.2); Basophils Percent Auto 0.7 % (0-2); Eosinophils Absolute Auto 0.1 X10*3/uL (0.0-0.4); Eosinophils Percent Auto 1.3 % (0-4); Hematocrit 36.4 % (37.0-47.0); Hemoglobin 12.5 g/dl (12.0-16.0); Imm Gran Abs Auto 0.02 X10*3/uL (0.00-0.03); Imm Gran Pct Auto 0.3 % (0.0-0.4); Lymphocytes Absolute Auto 1.5 X10*3/uL (1.2-4.9); Lymphocytes Percent Auto 22.5 % (20-40); Mean Corpuscular HGB Conc 34.3 g/dl (31.0-35.0); Mean Corpuscular Hemoglobin 30.3 pg (27.0-33.0); Mean Corpuscular Volume 88.1 fL (80.0-98.0); Mean Platelet Volume 9.4 fL (9.4-12.3); Monocytes Absolute Auto 0.3 X10*3/uL (0.1-1.2); Monocytes Percent Auto 4.9 % (2-11); Neutrophils Absolute Auto 4.8 x10*3/uL (2.0-8.3); Neutrophils Percent Auto 70.3 % (45-73); Platelet Count 288 X10*3/uL (160-400); Red Blood Count 4.13 X10*6/uL (4.20-5.50); White Blood Count 6.8 X10*3/uL (4.8-10.8)
[2023-02-19 09:50] LABS: Alanine Aminotransferase 25 U/L (0-31); Albumin Level 4.2 g/dL (3.5-5.0); Alkaline Phosphatase 67 U/L (39-117); Anion Gap 11 (12-20); Aspartate Amino Transferase 16 U/L (5-31); Bilirubin Total 0.3 mg/dL (0.0-1.0); Blood Urea Nitrogen 12 mg/dL (9-16); Calcium 9.9 mg/dL (8.4-10.2); Carbon Dioxide 26 mmol/L (22-29); Chloride 104 mmol/L (96-108); Creatinine Clr Calc Pharmacy 64.2; Estimated Glomerular Filt Rate > 60; Glucose Random 96 mg/dL (60-115); Potassium 4.4 mmol/L (3.3-5.1); Sodium 137 mmol/L (135-145); Total Protein 7.2 g/dL (6.5-8.0)
--- NOTE | 2023-02-19 16:41 | PM.PSYDC ---
DS: Providers Provider Date of Service: 02/19/23 Date of admission: 01/07/23 15:47 Date of discharge: 02/19/23 Primary care physician: Suzanna Cervantes MD Admitting clinician: Nancy Pizarro Attending physician on admission: Wilbert Jimenez Consults: 01/11/23 17:13 Consult to Hospitalist Routine Comment: chronic hyponatremia-Dr Obrien will assess for rx. Consulting Provider: Hospitalist Reason For Exam: HTN BP 225/114, 206/114. Pt on Coreg. 02/08/23 18:24 Consult to Nephrology Routine Consulting Provider: [facility] Reason for consultation: chronic hyponatremia, HTN, fluid restriction parameters, other options? Has provider been notified: No Attending physician on discharge: Wilbert Jimenez Discharging clinician: Nancy Pizarro DS: Diagnosis Discharge Diagnosis (1) Psychogenic nonepileptic seizure: Status: Resolved (2) Bipolar I disorder: Status: Acute DS: Medications Discharge Medications Home Medications: Home Medications Medication Instructions Recorded Confirmed hydroxyzine pamoate 25 mg capsule 25 mg PO TID PRN anxiety 01/04/23 01/04/23 Previous Rx's Medication Instructions Recorded amlodipine 5 mg tablet 5 mg PO DAILY #30 tabs 02/18/23 benztropine 0.5 mg tablet 0.5 mg PO BEDTIME #30 tabs 02/18/23 carvedilol 6.25 mg tablet 18.75 mg PO BID #180 tabs 02/18/23 clonazepam 1 mg tablet 1 mg PO BID #14 tabs 02/18/23 clonidine HCl 0.1 mg tablet 0.1 mg PO BID PRN Anxiety #3 tabs 02/18/23 clotrimazole 1 % topical cream 1 appl topical BID #100 applicators 02/18/23 haloperidol 5 mg tablet 5 mg PO DAILY #30 tabs 02/18/23 lamotrigine 25 mg tablet 75 mg (3 x 25 mg) PO BEDTIME #90 02/18/23 tabs melatonin 3 mg tablet 9 mg (3 x 3 mg) PO BEDTIME #90 tabs 02/18/23 multivitamin (Daily-Ni tablet) 1 tab PO DAILY #30 tabs 02/18/23 nicotine (polacrilex) 2 mg gum 4 mg buccal Q2H PRN Nicotine 02/18/23 Cravings #100 ea trazodone 50 mg tablet 50 mg PO BEDTIME PRN insomnia #30 02/18/23 tabs zolpidem 10 mg tablet 10 mg PO BEDTIME PRN insomnia #15 02/18/23 tabs Mental Status Exam Mental Status Exam Patient Appearance: Appropriate Patient Orientation: Person, Place, Time and Situation Level of Consciousness: Alert Patient Behavior: Talkative, Cooperative and Good Eye Contact Mood Description: Anxious Affect Description: Constricted Patient Cognition Impaired: No Ability to Follow Directions: Good Speech Pattern: Spontaneous Speech Memory Description: Remote Impaired and Episodic Impaired Hallucinations: None Delusions: Not Present Thought Process: Distracted (at times) and Goal Oriented Thought Content: positive for Perseveration Depressive Symptoms: Thoughts of /Suicide (denies) Judgement: Fair Data Data Completed and Pending Completed studies during hospitalization [Text1]: 02/19/23 09:21 WBC 6.8 RBC 4.13 L Hgb 12.5 Hct 36.4 L MCV 88.1 MCH 30.3 MCHC 34.3 RDW 13.0 Plt Count 288 MPV 9.4 Immature Gran % (Auto) 0.3 Neut % (Auto) 70.3 Lymph % (Auto) 22.5 Frederick % (Auto) 4.9 Eos % (Auto) 1.3 Baso % (Auto) 0.7 Lymph # (Auto) 1.5 Frederick # (Auto) 0.3 Eos # (Auto) 0.1 Baso # (Auto) 0.1 Abs Immat Gran (auto) 0.02 Absolute Neuts (auto) 4.8 Absolute Nucleated RBC 0.000 Nucleated RBC % (auto) 0.0 Sodium 137 Potassium 4.4 Chloride 104 Carbon Dioxide 26 Anion Gap 11 L BUN 12 Creatinine 0.73 Estim Creat Clear Calc 64.2 Estimated GFR > 60 Random Glucose 96 Calcium 9.9 Total Bilirubin 0.3 AST 16 ALT 25 Alkaline Phosphatase 67 Total Protein 7.2 Albumin 4.2 Imaging Diagnostic Imaging Impressions Chest X-Ray 01/11/23 14:46 IMPRESSION: No focal pneumonia. DS: Summary Hospital Course Hospital Course: Admission to adult psychiatry for exacerbation of Bipolar Disorder. Pt presented with acute rj. Section Seven was filed. Section Eight was authorized and medications were assessed and a stabilizing regime was established. Pt's medical appointments were coordinated. She will return to [facility] for out patient psychiatry and VNA will assist her with medicine compliance upon discharge. Status at Discharge Functional status at discharge: independent ambulation Overall status at discharge: patient is back to baseline Time Spent with Patient Time attestation: Total time managing care of this patient today ____ minutes. Time spent: Greater than 30 minutes Discharge Plan Discharge Anticipated Discharge Date/Time: 02/19/23 12:00 Patient Disposition: Home, Self-Care Discharge Diagnosis: Bipolar Disorder Referrals: Cathy Bello Visiting RN [Other] - 02/20/23 (Fax- Visiting RN will begin post D/C. The RN will call to schedule a time for the visit... If you do not hear call the agency. ) [facility] Appt w Yesika Mendez [Other] - 03/20/23 2:00 pm [facility] [Other] - 3-5 Days (Walk-In same day therapy intake appt. M-F, 8am to 8pm.) [facility] [Other] - 1 Week Audacious [facility] - [facility] [Other] - 1 Week [facility]hum[facility] [Other] - 1 Week Lidia Lynn DPM [Physician] - 04/25/23 3:15 pm Suzanna Cervantes MD [Primary Care Provider] - 03/19/23 9:00 am (in office) Marie Arriaza MD [Physician] - 02/21/23 3:30 pm ([facility] [phone]) Discharge Medications: New multivitamin [Daily-Ni] Tablet 1 tab PO DAILY Qty: 30 0RF clonidine HCl 0.1 mg Tablet 0.1 mg PO BID PRN (Reason: Anxiety) Qty: 3 0RF Protocol: Hold for SBP< HOLD for SBP < : 90 haloperidol 5 mg Tablet 5 mg PO DAILY Qty: 30 0RF clotrimazole 1 % Cream 1 appl topical BID Qty: 100 0RF Protocol: Apply to: Apply to: toenails haloperidol decanoate [Haldol Decanoate] 50 mg/mL solution 50 mg IM Q4W Qty: 1 0RF Rx Instructions: IM Due on 03/14/23. amlodipine 5 mg tablet 5 mg PO DAILY Qty: 30 0RF clonazepam [Klonopin] 1 mg tablet 1 mg PO BID Qty: 14 0RF lamotrigine [Lamictal] 25 mg tablet 75 mg PO DAILY 14 Days Qty: 90 0RF Discontinued melatonin 3 mg tablet 9 mg PO BEDTIME perphenazine 2 mg Tablet 4 mg PO BID 30 Days Qty: 120 0RF carvedilol 12.5 mg tablet 12.5 mg PO Q12H 30 Days Qty: 60 0RF carbamazepine 200 mg Tablet Extended Release 12 Hr 400 mg PO BID 30 Days Qty: 120 0RF trazodone 50 mg tablet 50 mg PO BEDTIME PRN (Reason: insomnia) zolpidem 10 mg tablet 10 mg PO BEDTIME PRN (Reason: insomnia) No Action carvedilol 6.25 mg tablet 12.5 mg PO BID Protocol: Hold for SBP/HR < HOLD for SBP < : 90 HOLD for HR < : 60 melatonin 3 mg tablet 10 mg PO BEDTIME Discharge Orders: Discharge Order (Routine); Ordered 02/19/23 Ordered By: Nancy Pizarro Diet: Advance to usual diet Activity on Discharge: As tolerated Stand Alone Forms: Patient Portal Discharge page, Community Support Care Plan Goals: Mood and Behavioral Stabilization Health Concerns: Mood and Behavioral Stabilization Plan of Treatment: [facility] [phone] March 18, 1013 8am for teeth cleaning Call Dr. Cervantes office to discuss a new PCP as Dr. Wang has no open availabilities [phone]. Assessment: Scheduled discharge. Discharge Date/Time: 02/19/23 11:17
== END 2023-02-19 11:17 | disposition home or self-care (01) | DRG 885 ==
LOC: HO.ED 01-05 21:15 → HO.PM5 01-07 17:05
PROVIDERS: Psychiatry & Neurology Psychiatry; Social Worker; Student in an Organized Health Care Education/Training Program; Admitting Provider Psychiatry & Neurology Psychiatry; Emergency Provider Emergency Medicine; PCP Internal Medicine; Visit Provider Clinical Nurse Specialist Psychiatric/Mental Health, Adult
DX: F31.2 Bipolar disorder, current episode manic severe with psychotic features (principal); U07.1 COVID-19; E87.1 Hypo-osmolality and hyponatremia; Z59.02 Unsheltered homelessness; F43.10 Post-traumatic stress disorder, unspecified; Z91.148 Patient's other noncompliance with medication regimen for other reason; I10 Essential (primary) hypertension; F44.5 Conversion disorder with seizures or convulsions; Z87.891 Personal history of nicotine dependence; Z79.899 Other long term (current) drug therapy
CPT/HCPCS: 36415; 71045; 80048; 80053; 80076; 80307; 81003; 82570; 83735; 83935; 84295; 84300; 85025; 87635; 93005; 99285; J1630; J1631; J2060; S9485

== ENCOUNTER → 2023-01-07 15:47 | Outpatient (BNV) | payer OTHER, SELFPAY | PROVIDERS: Admitting Provider Psychiatry & Neurology Psychiatry; Emergency Provider Emergency Medicine; PCP Internal Medicine; Visit Provider Clinical Nurse Specialist Psychiatric/Mental Health, Adult | DX: F31.2 Bipolar disorder, current episode manic severe with psychotic features (principal); F44.5 Conversion disorder with seizures or convulsions | CPT/HCPCS: 90792; 99231; 99232; 99238 ==

== ENCOUNTER → 2023-01-07 15:47 | Outpatient (BNV) | payer OTHER, SELFPAY | PROVIDERS: Admitting Provider Psychiatry & Neurology Psychiatry; Emergency Provider Emergency Medicine; PCP Internal Medicine; Visit Provider Psychiatry & Neurology Psychiatry | DX: F31.2 Bipolar disorder, current episode manic severe with psychotic features (principal); F44.5 Conversion disorder with seizures or convulsions | CPT/HCPCS: 99231 ==

== ENCOUNTER 2023-02-27 13:21 | Outpatient (AMB) | payer OTHER, SELFPAY ==
[2023-02-27 13:52] VITALS: BP 86/60; PULSE 68; O2SAT 97
--- NOTE | 2023-02-27 13:52 | MHC.OFFWIV ---
Intake Vital Signs 02/27/23 13:52 Height 5 ft 1 in BP 86/60 L Blood Pressure Location Rt brachial Position Sitting Pulse 68 Pulse Source Pulse Oximeter Pulse Oximetry (%) 97 Oxygen Delivery Method Room Air Intake Visit Reasons: Est/tiredness, low bp per vna(lobby) Intake Note: pt is here for c.o low bp and fatigue Patient Tobacco Use Status: Former Tobacco user Quit Date: 20 years ago Allergies olanzapine Adverse Reaction (Severe, Verified 02/27/23 13:53) visual changes carbamazepine [From Tegretol] Adverse Reaction (Intermediate, Verified 02/27/23 13:53) Hyponatremia divalproex sodium [From Depakote] Adverse Reaction (Mild, Verified 02/27/23 13:53) hyperammonemia Do you need a note to return to daycare/school/sports/work: Yes HPI HPI Comments History of Present Illness Details This is a 62-year-old female with a past medical history of bipolar disorder presenting for evaluation of hypotension and lightheadedness. Patient was psychiatrically hospitalized from the end of December 2022 and discharged on February 19, 2023. At the time of her most recent physical examination in September 2022 the patient was well managed on carvedilol at 12.5 mg twice daily. While psychiatrically hospitalized the patient was also started on amlodipine and clonidine and her carvedilol dose was increased to 18.75 mg twice daily. Patient states since the time of her discharge she has been feeling significantly fatigued and lightheaded. Patient states that her anxiety is well controlled. Patient was visited by the VNA in her home today and told that her blood pressure was low. Patient denies having any fevers, chills, cough, chest pain, shortness for breath or any other physical complaints at this time. Specifically, patient denies any pre-syncope or syncope. [facility] Medical History Leiomyoma PTSD (post-traumatic stress disorder) Bipolar I disorder Tinea unguium History of psychogenic nonepileptic seizure Impaired fasting glucose Dyslipidemia (high LDL; low HDL) Hx of suicide attempt On beta baldemar at home Arthritis Anxiety Diastasis recti Umbilical hernia Compression fracture of L1 lumbar vertebra Dupuytren's contracture of left hand Lumbar disc herniation Essential hypertension Ventral hernia Urinary incontinence Surgical History H/O shoulder surgery Hx of elbow surgery Hx of repair of left rotator cuff Hx of colonoscopy History of lumbar fusion Family History Father Diabetes mellitus Mother COPD (chronic obstructive pulmonary disease) Sister Diabetes mellitus Glaucoma Other Mental health disorder Substance use disorder Social History Household Members: Other Household Members Other:: brother Housing: House Are you a primary child care cook to a significant other at home: No Do you presently have visiting nurse or other home services: No Unable to assess alcohol history related to: Unknown Alcohol intake: current Alcohol intake frequency: holidays/special occasions only Patient Tobacco Use Status: Former Tobacco user Quit Date: 20 years ago Tobacco use type: Cigarette Cigarette Packs Per Day: 1 Cigarettes Per Day: 20.0 e-Cigarette/Vaping Use: Never Used Second Hand Smoke Exposure: No Substance Use Type: Marijuana Advance Directives Date on File: 11/26/22 service: No Current occupational status: disabled Sexual orientation: Straight/Heterosexual Cognitive needs: No Hearing needs: No Vision needs: No Review of Systems Const All systems reviewed & are unremarkable except as noted in HPI and below Reports as per HPI, Reports fatigue, Reports lethargy and Reports other (lightheaded) Eyes Reports no additional complaints ENT Reports no additional complaints Card Reports no additional complaints Resp Reports no additional complaints Musc Reports no additional complaints Psych Reports no additional complaints and Denies anxiety Endo Reports fatigue Physical Exam Vital Signs: Last Vital Signs Pulse 68 02/27/23 13:52 BP 86/60 L 02/27/23 13:52 Pulse Ox 97 02/27/23 13:52 Oxygen Delivery Method Room Air 02/27/23 13:52 Hypotensive Temperature 98.3 Const General: cooperative, healthy appearing, comfortable and no acute distress; No lethargic or patient obtunded Nutritional Appearance: average body habitus Orientation/consciousness: patient oriented x3, No patient obtunded and No lethargic Limitations: no limitations Resp Effort & Inspection: normal respiratory effort, able to speak in complete sentences, normal respiratory pattern and no use of accessory muscles Auscultation: clear to auscultation bilaterally Cardio Rate: regular rate Rhythm: regular rhythm Neuro General: patient oriented x3 and No patient obtunded Extrem Other: ambulating independently without ataxia. Psych Appearance: grossly normal Mental Status: mental status grossly normal Affect: normal affect Attitude: cooperative Thought process: Normal thought process present Thought content: Normal thought content present Insight: Good insight present (Psych) Judgement: Good judgement present (Psych) Assessment & Plan Assessment & Plan (1) Hypotension: Comment: Patient's new medications are reviewed as well as her previous medication regimen for hypertension. I do not suspect a sepsis related process as she is afebrile and appears well on examination. Code(s): I95.9 - Hypotension, unspecified Plan: Patient will call her psychiatrist at [facility] to obtain a medication review however at this time she will discontinue the clonidine, return to taking carvedilol 12.5 mg b.i.d. and continue the amlodipine 5 mg. Patient is also instructed to increase her water intake daily. VNA will return to recheck her blood pressure on Saturday and she will again return to the clinic if she remains again hypotensive. Coding Level of Care Code Est Pt Level 4 (15126) Diagnoses Hypotension I95.9 Time Spent (min) 30
== END 2023-02-27 14:43 | disposition home or self-care (01) ==
PROVIDERS: PCP Internal Medicine; Visit Provider Physician Assistant
DX: I95.9 Hypotension, unspecified (principal)
CPT/HCPCS: 99214

== ENCOUNTER → 2023-03-13 23:59 | Outpatient (BNV) | payer OTHER, SELFPAY | PROVIDERS: PCP Internal Medicine; Visit Provider Internal Medicine | DX: F31.9 Bipolar disorder, unspecified (principal) | CPT/HCPCS: G0180 ==

== ENCOUNTER 2023-03-19 08:56 | Outpatient (AMB) | payer OTHER, SELFPAY ==
[2023-03-19 09:07] VITALS: BP 112/86; PULSE 55; O2SAT 99; BMI 26.1
--- NOTE | 2023-03-19 09:07 | MHC.PC.OV ---
Vital Signs 03/19/23 09:07 Height 5 ft 1 in Weight 138 lb BMI 26.1 BP 112/86 Blood Pressure Location Lt brachial Position Sitting Pulse 55 Pulse Source Pulse Oximeter Pulse Oximetry (%) 99 Oxygen Delivery Method Room Air Intake Visit Reasons: [facility] Intake Note: Pt is here derrell for her HDF at [facility] Allergies olanzapine Adverse Reaction (Severe, Verified 08/22/23 08:22) visual changes carbamazepine [From Tegretol] Adverse Reaction (Intermediate, Verified 08/22/23 08:22) Hyponatremia divalproex sodium [From Depakote] Adverse Reaction (Mild, Verified 08/22/23 08:22) hyperammonemia Medication List - Last Reconciled 03/19/23 by Suzanna Cervantes MD amlodipine 5 mg PO DAILY carvedilol 12.5 mg See Protocol PO BID clonazepam (Klonopin) 1 mg PO BID clonidine HCl 0.1 mg See Protocol PO BID PRN clotrimazole 1% 1 appl See Protocol topical BID haloperidol 5 mg PO DAILY haloperidol decanoate (Haldol Decanoate) 50 mg IM Q4W lamotrigine (Lamictal) 75 mg (3 x 25 mg) PO DAILY 14 days melatonin 10 mg PO BEDTIME multivitamin (Daily-Ni tablet) 1 tab PO DAILY Tobacco use date assessed: 03/19/23 Dental Screening Dental Screen Date: 03/19/23 Did you have a dental visit in the last 12 months?: Yes Did you have a dental problem in the last 6 months where you did not have access to dental care?: No Was dental information given to patient?: Patient has dentist HPI [facility] HPI Details 63-year-old lady, here to day for hospital discharge follow-up. She was admitted 02/19/2023 to adult psychiatry for exacerbation of Bipolar Disorder. Pt presented with acute rj. Section Seven was filed. Section Eight was authorized and medications were assessed and a stabilizing regime was established. During her admission, blood pressure was noted to be elevated at 225/114 , 206/114. Currently on carvedilol nephrology consult obtained [facility] Medical History Leiomyoma PTSD (post-traumatic stress disorder) Bipolar I disorder Tinea unguium History of psychogenic nonepileptic seizure Impaired fasting glucose Dyslipidemia (high LDL; low HDL) Hx of suicide attempt On beta baldemar at home Arthritis Anxiety Diastasis recti Umbilical hernia Compression fracture of L1 lumbar vertebra Dupuytren's contracture of left hand Lumbar disc herniation Essential hypertension Ventral hernia Urinary incontinence Surgical History H/O shoulder surgery Hx of elbow surgery Hx of repair of left rotator cuff Hx of colonoscopy History of lumbar fusion Family History Father Diabetes mellitus Mother COPD (chronic obstructive pulmonary disease) Sister Diabetes mellitus Glaucoma Other Mental health disorder Substance use disorder Social History Household Members: Other Household Members Other:: brother Housing: House Are you a primary wound care center consultant to a significant other at home: No Do you presently have visiting nurse or other home services: No Unable to assess alcohol history related to: Unknown Alcohol intake: current Alcohol intake frequency: holidays/special occasions only Patient Tobacco Use Status: Former Tobacco user Tobacco use type: Cigarette Cigarette Packs Per Day: 1 Cigarettes Per Day: 20.0 e-Cigarette/Vaping Use: Never Used Second Hand Smoke Exposure: No Substance Use Type: Marijuana Advance Directives Date on File: 11/26/22 service: No Current occupational status: disabled Sexual orientation: Straight/Heterosexual Cognitive needs: No Hearing needs: No Vision needs: No Questionnaire Thrive Questionnaire Date Thrive assessed: 01/08/23 AUDIT C Alcohol Use Questionnaire (AUDIT-C) 1. How often do you have a drink containing alcohol?: Never Total Score: 0 DANNIE-7 AMB Questionnaire DANNIE-7 Date DANNIE - 7 assessed: 04/09/22 Source: Developed by Drs. Cirilo Chang, Amisha Norman, Rajan Montelongo and colleagues, with an educational krista from [employer]. Review of Systems Const Reports fatigue Eyes Reports no additional complaints ENT Reports no additional complaints Card Reports no additional complaints Resp Reports no additional complaints GI Reports no additional complaints Reports no additional complaints Musc Reports no additional complaints Neuro Reports no additional complaints Psych Reports no additional complaints and Denies anxiety Endo Reports fatigue Physical exam (Primary Care) Vital Signs: Last Vital Signs Pulse 55 0206/24 09:07 BP 112/86 03/19/23 09:07 Pulse Ox 99 03/19/23 09:07 Oxygen Delivery Method Room Air 03/19/23 09:07 BMI result Body Mass Index 26.1 Tobacco/Smoking Status: Tobacco use Status Tobacco use date assessed 03/19/23 03/19/23 09:14 Patient Tobacco Use Status Former Tobacco user 03/19/23 09:14 Tobacco use type Cigarette 03/19/23 09:14 e-Cigarette/Vaping Use Never Used 03/19/23 09:14 Thrive Assessment: Date of Thrive Assessment Date Thrive assessed 01/08/23 03/19/23 09:14 Const Other: Alert oriented x3, no acute distress noted, ambulatory with normal gait Orientation/consciousness: patient oriented x3 HENMT Mouth: moist mucous membranes Eyes General: appearance normal, both eyes and all related structures Neck Neck: Yes full ROM, Yes no lymphadenopathy and Yes supple Resp Auscultation: clear to auscultation bilaterally Cardio Other: S1 and S2 present regular rate and rhythm GI Palpation (GI): Soft to palpation, nontender and no guarding Auscultation: normal bowel sounds Neuro General: patient oriented x3, gait normal, tone normal, moves all extremities, no focal motor deficits and CN's II-XI intact bilaterally Extrem General: Yes full ROM, Yes no joint enlargement, Yes no pedal edema and Yes normal gait Psych Appearance: grossly normal and well kempt Mental Status: mental status grossly normal Speech and movement: Normal speech and movement present Affect: normal affect Attitude: cooperative Thought process: Normal thought process present Assessment and Plan Assessment & Plan (1) Essential hypertension: Code(s): I10 - Essential (primary) hypertension Plan: Blood pressure today within normal limits, continued on Coreg, amlodipine and clonidine (2) Dyslipidemia (high LDL; low HDL): Code(s): E78.5 - Hyperlipidemia, unspecified Plan: Fasting lipid panel ordered, reinforced importance of following a low dose cholesterol diet and getting regular exercise (3) Elevated vitamin B12 level: Code(s): R74.8 - Abnormal levels of other serum enzymes Plan: Will check vitamin B12 and vitamin Orders: Orders Basic Metabolic Panel Fasting 03/19/23 I95.9 - Hypotension, unspecified, I10 - Essential (primary) hypertension, E78.5 - Hyperlipidemia, unspecified, R74.8 - Abnormal levels of other serum enzymes Lipid Panel 03/19/23 I95.9 - Hypotension, unspecified, I10 - Essential (primary) hypertension, E78.5 - Hyperlipidemia, unspecified, R74.8 - Abnormal levels of other serum enzymes Vitamin D 25-OH Total 03/19/23 I95.9 - Hypotension, unspecified, I10 - Essential (primary) hypertension, E78.5 - Hyperlipidemia, unspecified, R74.8 - Abnormal levels of other serum enzymes Vitamin B12 and Folate 03/19/23 I95.9 - Hypotension, unspecified, I10 - Essential (primary) hypertension, E78.5 - Hyperlipidemia, unspecified, R74.8 - Abnormal levels of other serum enzymes Coding Level of Care Code Est Pt Level 4 (93906) Complex EM visit Add On G2211 Diagnoses Essential hypertension I10 Dyslipidemia (high LDL; low HDL) E78.5 Elevated vitamin B12 level R74.8
== END 2023-03-19 10:02 | disposition home or self-care (01) ==
PROVIDERS: PCP Internal Medicine; Visit Provider Internal Medicine
DX: I10 Essential (primary) hypertension (principal); E78.5 Hyperlipidemia, unspecified; R74.8 Abnormal levels of other serum enzymes
CPT/HCPCS: 99499

== ENCOUNTER → 2023-03-27 13:08 | Outpatient (BNVA) | payer OTHER, SELFPAY | PROVIDERS: PCP Internal Medicine; Visit Provider Advanced Practice Midwife ==

== ENCOUNTER → 2023-03-28 10:55 | Outpatient (REF) | payer OTHER, SELFPAY | LOC: HO.SL 10:55 | PROVIDERS: PCP Internal Medicine; Visit Provider Nurse Practitioner Family | DX: I10 Essential (primary) hypertension (principal); R06.83 Snoring; R40.0 Somnolence | CPT/HCPCS: 95806 ==

== ENCOUNTER → 2023-03-28 11:02 | Outpatient (BNV) | payer OTHER, SELFPAY | PROVIDERS: PCP Internal Medicine; Visit Provider Psychiatry & Neurology Neurology | DX: R06.83 Snoring (principal) | CPT/HCPCS: 95806 ==

== ENCOUNTER 2023-04-10 14:23 | Outpatient (REF) | payer OTHER, SELFPAY ==
--- NOTE | ~2023-04-10 | US_ITS ---
EXAMINATION: US PELVIS CLINICAL INFORMATION: Leiomyoma. COMPARISON: MR pelvis 04/25/2022, ultrasound pelvis 03/22/2022. TECHNIQUE: Ultrasound of the pelvis is performed using both transabdominal and transvaginal transducers along with Doppler. Transvaginal imaging is performed due to inadequate visualization transabdominally. FINDINGS: UTERUS: The uterus is anteverted and measures 6.5 x 2.9 x 3.4 cm. The double wall endometrial thickness is 0.2 mm. The uterus is smooth in contour and has normal myometrial echogenicity. A lower uterine segment/cervical intramural fibroid is again seen measuring 3.7 x 3.1 x 4.0 cm (previously 3.9 x 3.1 x 3.5 cm). ADNEXA: Neither ovary could be seen. No free intraperitoneal fluid is detected. US/US pelvic and transvaginal IMPRESSION: Lower uterine segment/cervical fibroid is again seen measuring 3.7 x 3.1 x 4.0 cm (previously 3.9 x 3.1 x 3.5 cm).
== END 2023-04-10 14:24 | disposition home or self-care (01) ==
LOC: HO.US 14:23
PROVIDERS: PCP Internal Medicine; Visit Provider Advanced Practice Midwife
DX: D21.9 Benign neoplasm of connective and other soft tissue, unspecified (principal)
CPT/HCPCS: 76830; 76856

== ENCOUNTER 2023-04-12 10:16 | Outpatient (REF) | payer OTHER, SELFPAY ==
[2023-04-12 14:30] LABS: Anion Gap 14 (12-20); Blood Urea Nitrogen 12 mg/dL (9-16); Calcium 9.9 mg/dL (8.4-10.2); Carbon Dioxide 27 mmol/L (22-29); Chloride 103 mmol/L (96-108); Cholesterol 220 mg/dL (<200); Estimated Glomerular Filt Rate > 60; Glucose Fasting 82 mg/dL (60-99); HDL Cholesterol 62 mg/dL (>40); LDL Cholesterol Calculated 139 mg/dL (<100); Potassium 4.6 mmol/L (3.3-5.1); Sodium 139 mmol/L (135-145); Triglycerides 95 mg/dL (<150)
[2023-04-12 14:34] LABS: Vitamin D 25-OH Total 42.9 ng/mL (>30)
[2023-04-12 14:37] LABS: Folate 15.6 ng/mL (> or = 4.0); Vitamin B12 1171 pg/mL (200-900)
== END 2023-04-12 10:17 | disposition home or self-care (01) ==
LOC: HO.HMGCLDS 10:16
PROVIDERS: PCP Internal Medicine; Visit Provider Internal Medicine
DX: I95.9 Hypotension, unspecified (principal); I10 Essential (primary) hypertension; R74.8 Abnormal levels of other serum enzymes; E78.5 Hyperlipidemia, unspecified
CPT/HCPCS: 36415; 80048; 80061; 82306; 82607; 82746

== ENCOUNTER 2023-04-24 08:30 | Outpatient (AMB) | payer OTHER, SELFPAY ==
--- NOTE | 2023-04-24 08:33 | A.OFFVIS_ITS ---
Intake Vital Signs 04/24/23 08:40 Height 5 ft 1 in Weight 135 lb 6 oz BMI 25.6 BP 112/74 Blood Pressure Location Lt brachial Position Sitting Pulse 66 Pulse Source Pulse Oximeter Pulse Oximetry (%) 96 Oxygen Delivery Method Room Air Intake Visit Reasons: Follow up sleep test - CONF w/address Intake Note: Patient presents for f/u. still not sleeping good at night Allergies olanzapine Adverse Reaction (Severe, Verified 04/24/23 11:03) visual changes carbamazepine [From Tegretol] Adverse Reaction (Intermediate, Verified 04/24/23 11:03) Hyponatremia divalproex sodium [From Depakote] Adverse Reaction (Mild, Verified 04/24/23 11:03) hyperammonemia Medication List - Last Reconciled 04/24/23 by David Keating CNP amlodipine 5 mg PO DAILY carvedilol 12.5 mg See Protocol PO BID clonazepam (Klonopin) 1 mg PO BID clonidine HCl 0.1 mg See Protocol PO BID PRN clotrimazole 1% 1 appl See Protocol topical BID haloperidol 5 mg PO DAILY haloperidol decanoate (Haldol Decanoate) 50 mg IM Q4W lamotrigine (Lamictal) 75 mg (3 x 25 mg) PO DAILY 14 days melatonin 10 mg PO BEDTIME multivitamin (Daily-Ni tablet) 1 tab PO DAILY zolpidem (Ambien) 10 mg PO BEDTIME HPI HPI Comments History of Present Illness Details 63 y/o female patient with hx of psychog enic non epileptic seizure, bipolar, anxiety presents for follow up of seizure likely activity. Pt is not a good historian. Pt reports no more seizure activities since the last episode in Oct, 2022. However, she was admitted to hospital for behavior issue and bipolar to manage her medications. Pt was also had hyponatremia and needed to stop Tegretol. Home sleep study was inconclusive. Pt reports she did not sleep well, and the equipment was off in the morning. The recent episode was on 10/25 and visit ED. Pt's states that patient was very agitated, and lost speech. Per patient's , patient's BP was very high, not sure exactly but SBP was higher than 190s. CT of brain result was no evidence of intracranial hemorrhage, mass effect or midline shift. Mild chronic small vessel ischemia and volume loss. Pt reports that the first seizure like episode was in 2021 while she was hospitalized in psychiatry unit for SI. She was overdosed, pt's reports she took her all her lisinopril and clonazepam at that time. Pt was prescribed keppra, but she did not like it and stopped taking it couple of days later. It caused more irritation and anxiety. She was prescribed keppra in the past, she did not like it, very irritated and stopped taking it after couple of days. [facility] Medical History Leiomyoma PTSD (post-traumatic stress disorder) Bipolar I disorder Tinea unguium History of psychogenic nonepileptic seizure Impaired fasting glucose Dyslipidemia (high LDL; low HDL) Hx of suicide attempt On beta baldemar at home Arthritis Anxiety Diastasis recti Umbilical hernia Compression fracture of L1 lumbar vertebra Dupuytren's contracture of left hand Lumbar disc herniation Essential hypertension Ventral hernia Urinary incontinence Surgical History H/O shoulder surgery Hx of elbow surgery Hx of repair of left rotator cuff Hx of colonoscopy History of lumbar fusion Family History Father Diabetes mellitus Mother COPD (chronic obstructive pulmonary disease) Sister Diabetes mellitus Glaucoma Other Mental health disorder Substance use disorder Social History Household Members: Other Household Members Other:: brother Housing: House Are you a primary home day care provider to a significant other at home: No Do you presently have visiting nurse or other home services: No Unable to assess alcohol history related to: Unknown Alcohol intake: current Alcohol intake frequency: holidays/special occasions only Patient Tobacco Use Status: Former Tobacco user Quit Date: 20 years ago Tobacco use type: Cigarette Cigarette Packs Per Day: 1 Cigarettes Per Day: 20.0 e-Cigarette/Vaping Use: Never Used Second Hand Smoke Exposure: No Substance Use Type: Marijuana Advance Directives Date on File: 11/26/22 service: No Current occupational status: disabled Sexual orientation: Straight/Heterosexual Cognitive needs: No Hearing needs: No Vision needs: No Review of Systems Const All systems reviewed & are unremarkable except as noted in HPI and below ENT Reports Normal hearing present Neuro Reports Normal hearing present Physical Exam Vital Signs: Last Vital Signs Pulse 66 04/24/23 08:40 BP 112/74 04/24/23 08:40 Pulse Ox 96 04/24/23 08:40 Oxygen Delivery Method Room Air 04/24/23 08:40 BMI result Body Mass Index 25.6 Const General: anxious Orientation/consciousness: patient oriented x3 Neck Neck: Yes full ROM and Yes supple Resp Effort & Inspection: normal respiratory effort and able to speak in complete sentences Neuro General: patient oriented x3 and moves all extremities Cranial nerves: Yes Bilaterally intact EOM present, Yes Normal facial strength present, Yes Midline tongue present, Yes Symmetric palate elevation present, Yes Normal hearing present, Yes Ability to bilaterally rotate head present and Yes Ability to bilaterally elevate shoulders present Cognition (Neuro): normal cognition Gait exam (Neuro): Antalgic gait present Motor exam (neuro): 5/5 motor strength present throughout, Pronator motor function not present and no tremor noted Psych Appearance: grossly normal Affect: Anxious affect present and Irritable affect present Assessment & Plan Assessment & Plan (1) Snoring: Code(s): R06.83 - Snoring (2) History of psychogenic nonepileptic seizure: Code(s): Z87.898 - Personal history of other specified conditions (3) Daytime sleepiness: Code(s): R40.0 - Somnolence (4) Insomnia: Code(s): G47.00 - Insomnia, unspecified Plan Pt is advised to undergo in lab sleep study to assess for sleep apnea. Will f/u with pt after study to discuss results and appropriate treatment options. Patient was refer to [facility] for further evaluation for seizure likely activity, but she could not scheduled. Sleep hygiene education provided. Pt to call with any worsening concerns or questions. Orders: Orders RT PSG in-lab sleep study Today G47.00 - Insomnia, unspecified, R40.0 - Somnolence Coding Level of Care Code Est Pt Level 3 (70375) Diagnoses Snoring R06.83 History of psychogenic nonepileptic seizure Z87.898 Daytime sleepiness R40.0 Insomnia G47.00
[2023-04-24 08:40] VITALS: BP 112/74; PULSE 66; O2SAT 96; BMI 25.6
== END 2023-04-24 09:00 | disposition home or self-care (01) ==
PROVIDERS: PCP Internal Medicine; Visit Provider Nurse Practitioner Family
DX: R06.83 Snoring (principal); Z87.898 Personal history of other specified conditions; R40.0 Somnolence; G47.00 Insomnia, unspecified
CPT/HCPCS: 99213

== ENCOUNTER → 2023-04-24 08:30 | Outpatient (BNVA) | payer OTHER, SELFPAY | PROVIDERS: PCP Internal Medicine; Visit Provider Nurse Practitioner Family | DX: D21.9 Benign neoplasm of connective and other soft tissue, unspecified (principal); R06.83 Snoring; R40.0 Somnolence; G47.00 Insomnia, unspecified; Z87.898 Personal history of other specified conditions; Z79.899 Other long term (current) drug therapy | CPT/HCPCS: 99212 ==

== ENCOUNTER 2023-04-24 10:48 | Outpatient (AMB) | payer OTHER, SELFPAY ==
--- NOTE | 2023-04-24 11:01 | MHC.OFFVIS ---
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 She denies any pelvic pain, bloating, pressure, or any vaginal bleeding. [facility] Medical History Leiomyoma PTSD (post-traumatic stress disorder) Bipolar I disorder Tinea unguium History of psychogenic nonepileptic seizure Impaired fasting glucose Dyslipidemia (high LDL; low HDL) Hx of suicide attempt On beta baldemar at home Arthritis Anxiety Diastasis recti Umbilical hernia Compression fracture of L1 lumbar vertebra Dupuytren's contracture of left hand Lumbar disc herniation Essential hypertension Ventral hernia Urinary incontinence Surgical History H/O shoulder surgery Hx of elbow surgery Hx of repair of left rotator cuff Hx of colonoscopy History of lumbar fusion Family History Father Diabetes mellitus Mother COPD (chronic obstructive pulmonary disease) Sister Diabetes mellitus Glaucoma Other Mental health disorder Substance use disorder Social History Household Members: Other Household Members Other:: brother Housing: House Are you a primary personal care home administrator to a significant other at home: No Do you presently have visiting nurse or other home services: No Unable to assess alcohol history related to: Unknown Alcohol intake: current Alcohol intake frequency: holidays/special occasions only Patient Tobacco Use Status: Former Tobacco user Quit Date: 20 years ago Tobacco use type: Cigarette Cigarette Packs Per Day: 1 Cigarettes Per Day: 20.0 e-Cigarette/Vaping Use: Never Used Second Hand Smoke Exposure: No Substance Use Type: Marijuana Advance Directives Date on File: 11/26/22 service: No Current occupational status: disabled Sexual orientation: Straight/Heterosexual Cognitive needs: No Hearing needs: No Vision needs: No Review of Systems Const All systems reviewed & are unremarkable except as noted in HPI and below Endo Reports no additional complaints Physical Exam Vital Signs: Last Vital Signs BP 112/70 04/24/23 11:03 BMI result Body Mass Index 25.5 Const General: cooperative, healthy appearing and no acute distress Psych Appearance: well kempt Attitude: cooperative Thought process: Normal thought process present Results Reviewed Results Reviewed: [address] [address] Ultrasound Report Signed Patient: Caryn Pinto MR#: [id number] : 1960 Acct:[id number] Age/Sex: 63 / F ADM Date: 04/10/23 Loc: HO.US Attending Dr: Deepali Yoon CNM Ordering Physician: Deepali Yoon CNM Date of Service: 04/10/23 Procedure(s): US pelvic and transvaginal Accession Number(s): [id number] cc: Suzanna Cervantes MD; Deepali Yoon CNM~ EXAMINATION: US PELVIS CLINICAL INFORMATION: Leiomyoma. COMPARISON: MR pelvis 04/25/2022, ultrasound pelvis 03/22/2022. TECHNIQUE: Ultrasound of the pelvis is performed using both transabdominal and transvaginal transducers along with Doppler. Transvaginal imaging is performed due to inadequate visualization transabdominally. FINDINGS: UTERUS: The uterus is anteverted and measures 6.5 x 2.9 x 3.4 cm. The double wall endometrial thickness is 0.2 mm. The uterus is smooth in contour and has normal myometrial echogenicity. A lower uterine segment/cervical intramural fibroid is again seen measuring 3.7 x 3.1 x 4.0 cm (previously 3.9 x 3.1 x 3.5 cm). ADNEXA: Neither ovary could be seen. No free intraperitoneal fluid is detected. US/US pelvic and transvaginal IMPRESSION: Lower uterine segment/cervical fibroid is again seen measuring 3.7 x 3.1 x 4.0 cm (previously 3.9 x 3.1 x 3.5 cm). Dictated By: Aram Smith MD Signed By: <Electronically signed by Aram Smith MD in OV> 04/11/23 1521 DD/ 1458 TD/TT: Protozoologist: ROSIO Assessment & Plan Assessment & Plan (1) Leiomyoma: Code(s): D21.9 - Benign neoplasm of connective and other soft tissue, unspecified Plan: Counseled re: Leiomyoma: common pelvic neoplasm. Differential diagnosis-may include leiomyosarcoma which is a rare uterine sarcoma 3-7/100,000, difficult to distinguish from fibroids on ultrasound from uterine sarcoma's. Unlikely any single test will have a highly positive predictive value. Hysterectomy is not recommended for sole purpose of excluding malignant neoplasm. Report any PMB, elvic pressure, bloating, or pain. Plan yearly scan for stability. All of her questions and concerns were addressed to the best of my ability and shared decision making. She is agreeable to the plan of care. This note is constructed using voice recognition software. While every effort has been made to ensure accuracy, sorting cows worker errors may have been included. Coding Level of Care Code Est Pt Level 3 (32153) Diagnoses Leiomyoma D21.9
[2023-04-24 11:03] VITALS: BP 112/70; BMI 25.5
== END 2023-04-24 12:42 | disposition home or self-care (01) ==
LOC: HO.HWS 10:48
PROVIDERS: PCP Internal Medicine; Visit Provider Advanced Practice Midwife
DX: D21.9 Benign neoplasm of connective and other soft tissue, unspecified (principal)
CPT/HCPCS: 99213

== ENCOUNTER → 2023-05-15 19:30 | Outpatient (REF) | payer OTHER, SELFPAY | LOC: HO.SL 19:30 | PROVIDERS: PCP Internal Medicine; Visit Provider Nurse Practitioner Family | DX: R40.0 Somnolence (principal); G47.00 Insomnia, unspecified | CPT/HCPCS: 95810 ==

== ENCOUNTER → 2023-05-15 20:57 | Outpatient (BNV) | payer OTHER, SELFPAY | PROVIDERS: PCP Internal Medicine; Visit Provider Psychiatry & Neurology Neurology | DX: R40.0 Somnolence (principal); G47.00 Insomnia, unspecified | CPT/HCPCS: 95810 ==

== ENCOUNTER 2023-06-21 11:27 | Outpatient (REF) | payer OTHER, SELFPAY ==
--- NOTE | ~2023-06-21 | MM_ITS ---
EXAMINATION: MM DIAGNOSTIC DIGITAL BREAST TOMOSYNTHESIS, LEFT CLINICAL INFORMATION: Six-month follow-up left breast calcifications, and nodular focus without ultrasound correlate in the inferior 9:00 left breast. COMPARISON: Mammography: 12/20/2022, 11/01/2022, 10/23/2021, 05/17/2021. TECHNIQUE: Digital breast tomosynthesis is performed in the following views: Full-field 3-D left mediolateral view x2, as well as 2-D spot magnification left CC and ML views were obtained. Computer-aided diagnosis was used for this study. FINDINGS: There are scattered areas of fibroglandular density (ACR BI-RADS breast composition Category b). Calcifications in the slightly inferior lateral breast, mid to anterior one third are stable without aggressive changes. The nodular abnormality seen in the inferior medial left breast posteriorly, without prior ultrasound correlate, does not persist on today's examination and is consistent with summation artifact of normal overlapping tissues. No further follow-up of this needed. No new abnormalities seen. MM/MM tomosynthesis diagnostic LT IMPRESSION: No findings suspicious for malignancy left breast. Small focus of grouped probably benign calcifications is without aggressive change. We will continue to follow these in 6 months with 6 month diagnostic left mammogram to include standard magnification views. ASSESSMENT: BI-RADS BI-RADS 3 - Probably benign finding(s) - 6 month follow-up suggested RECOMMENDATION: 6 Month F/U Results were provided to the patient at time of visit by the technologist. This patient's information was entered into a reminder system with a target due date for their next mammogram.
== END 2023-06-21 11:28 | disposition home or self-care (01) ==
LOC: HO.MAMMO 11:27
PROVIDERS: PCP Internal Medicine; Visit Provider Internal Medicine
DX: R92.1 Mammographic calcification found on diagnostic imaging of breast (principal)
CPT/HCPCS: 77061; 77065

== ENCOUNTER → 2023-06-21 11:30 | Outpatient (BNV) | payer OTHER, SELFPAY | PROVIDERS: PCP Internal Medicine; Visit Provider Radiology Diagnostic Radiology | DX: R92.1 Mammographic calcification found on diagnostic imaging of breast (principal) | CPT/HCPCS: 77065; G0279 ==

== ENCOUNTER 2023-08-21 14:01 | Outpatient (AMB) | payer OTHER, SELFPAY ==
[2023-08-21 14:17] VITALS: BP 118/76; PULSE 67; TEMP 36.7; O2SAT 97; BMI 26.7
--- NOTE | 2023-08-21 14:17 | MHC.OFFWIV ---
Intake Vital Signs 08/21/23 14:17 Height 5 ft 1 in Weight 141 lb 4 oz BMI 26.7 BP 118/76 Blood Pressure Location Rt brachial Position Sitting Pulse 67 Pulse Source Pulse Oximeter Temp 98.1 F Temp Source Temporal Artery Scan Pulse Oximetry (%) 97 Intake Visit Reasons: Raised bump on upper back Intake Note: pt is here for raised bump on upper back Patient Tobacco Use Status: Former Tobacco user Allergies olanzapine Adverse Reaction (Severe, Verified 08/21/23 14:20) visual changes carbamazepine [From Tegretol] Adverse Reaction (Intermediate, Verified 08/21/23 14:20) Hyponatremia divalproex sodium [From Depakote] Adverse Reaction (Mild, Verified 08/21/23 14:20) hyperammonemia Medication List - Last Reconciled 08/21/23 by Robert Wang MD amlodipine 5 mg PO DAILY carvedilol 12.5 mg See Protocol PO BID clonazepam (Klonopin) 1 mg PO BID clonidine HCl 0.1 mg See Protocol PO BID PRN clotrimazole 1% 1 appl See Protocol topical BID haloperidol 5 mg PO DAILY haloperidol decanoate (Haldol Decanoate) 50 mg IM Q4W lamotrigine (Lamictal) 75 mg (3 x 25 mg) PO DAILY 14 days melatonin 10 mg PO BEDTIME multivitamin (Daily-Ni tablet) 1 tab PO DAILY zolpidem (Ambien) 10 mg PO BEDTIME Do you need a note to return to daycare/school/sports/work: No HPI Raised bump on upper back HPI Details Patient is 63-year-old female came in today to be evaluated for a growth on her skin that she noticed 2 days ago Patient has been trying to pick on it On examination patient have a skin growth cauliflower shaped Size of almond but flattened as it is under her bras strap With slight amount of clotted blood in the surrounding because patient has been picking on it There is no signs of infection I am sending her to Dermatology for removal. [facility] Medical History Leiomyoma PTSD (post-traumatic stress disorder) Bipolar I disorder Tinea unguium History of psychogenic nonepileptic seizure Impaired fasting glucose Dyslipidemia (high LDL; low HDL) Hx of suicide attempt On beta baldemar at home Arthritis Anxiety Diastasis recti Umbilical hernia Compression fracture of L1 lumbar vertebra Dupuytren's contracture of left hand Lumbar disc herniation Essential hypertension Ventral hernia Urinary incontinence Surgical History H/O shoulder surgery Hx of elbow surgery Hx of repair of left rotator cuff Hx of colonoscopy History of lumbar fusion Family History Father Diabetes mellitus Mother COPD (chronic obstructive pulmonary disease) Sister Diabetes mellitus Glaucoma Other Mental health disorder Substance use disorder Social History Household Members: Other Household Members Other:: brother Housing: House Are you a primary personal care attendant to a significant other at home: No Do you presently have visiting nurse or other home services: No Unable to assess alcohol history related to: Unknown Alcohol intake: current Alcohol intake frequency: holidays/special occasions only Patient Tobacco Use Status: Former Tobacco user Tobacco use type: Cigarette Cigarette Packs Per Day: 1 Cigarettes Per Day: 20.0 e-Cigarette/Vaping Use: Never Used Second Hand Smoke Exposure: No Substance Use Type: Marijuana Advance Directives Date on File: 11/26/22 service: No Current occupational status: disabled Sexual orientation: Straight/Heterosexual Cognitive needs: No Hearing needs: No Vision needs: No Review of Systems Const All systems reviewed & are unremarkable except as noted in HPI and below Physical Exam Vital Signs: Last Vital Signs Temp 98.1 F 08/21/23 14:17 Pulse 67 08/21/23 14:17 BP 118/76 08/21/23 14:17 Pulse Ox 97 08/21/23 14:17 BMI result Body Mass Index 26.7 Const General: no acute distress Orientation/consciousness: patient oriented x3 Eyes General: appearance normal, both eyes and all related structures Resp Effort & Inspection: normal respiratory effort and able to speak in complete sentences Skin Full body images: 1. Rough cauliflower shaped raised growth size of flattened arm and with slight amount of clotted blood in the surrounding as patient is picking on it, no signs of infection Neuro General: patient oriented x3 Psych Mental Status: mental status grossly normal Assessment & Plan Assessment & Plan (1) Abnormal skin growth: Code(s): D49.2 - Neoplasm of unspecified behavior of bone, soft tissue, and skin Plan Patient is 63-year-old female came in today to be evaluated for a growth on her skin that she noticed 2 days ago Patient has been trying to pick on it On examination patient have a skin growth cauliflower shaped Size of almond but flattened as it is under her bras strap With slight amount of clotted blood in the surrounding because patient has been picking on it There is no signs of infection I am sending her to Dermatology for removal. Orders: Referrals Dermatology Referral D49.2 - Neoplasm of unspecified behavior of bone, soft tissue, and skin Coding Level of Care Code Est Pt Level 3 (53401) Diagnoses Abnormal skin growth D49.2
== END 2023-08-21 18:04 | disposition home or self-care (01) ==
PROVIDERS: PCP Internal Medicine; Visit Provider Internal Medicine
DX: D49.2 Neoplasm of unspecified behavior of bone, soft tissue, and skin (principal)
CPT/HCPCS: 99213

== ENCOUNTER 2023-08-22 08:17 | Outpatient (AMB) | payer OTHER, SELFPAY ==
--- NOTE | 2023-08-22 08:20 | A.OFFVIS_ITS ---
Vital Signs 08/22/23 08:22 Height 5 ft 1 in Weight 141 lb BMI 26.6 BP 128/68 Blood Pressure Location Rt brachial Position Sitting Respiration 16 Pulse 84 Pulse Source Pulse Oximeter Pulse Oximetry (%) 99 Oxygen Delivery Method Room Air Intake Visit Reasons: Follow up - Confirmed Intake Note: Pt presents for follow up for sleep disturbance and to discuss sleep study results. Records Analysis Manager Required: No Allergies olanzapine Adverse Reaction (Severe, Verified 08/22/23 08:22) visual changes carbamazepine [From Tegretol] Adverse Reaction (Intermediate, Verified 08/22/23 08:22) Hyponatremia divalproex sodium [From Depakote] Adverse Reaction (Mild, Verified 08/22/23 08:22) hyperammonemia Medication List - Last Reconciled 08/22/23 by Nory Goddard MD amlodipine 5 mg PO DAILY carvedilol 12.5 mg See Protocol PO BID clonazepam (Klonopin) 1 mg PO BID clonidine HCl 0.1 mg See Protocol PO BID PRN haloperidol 5 mg PO DAILY haloperidol decanoate (Haldol Decanoate) 50 mg IM Q4W lamotrigine (Lamictal) 75 mg (3 x 25 mg) PO DAILY 14 days melatonin 10 mg PO BEDTIME multivitamin (Daily-Ni tablet) 1 tab PO DAILY zolpidem (Ambien) 10 mg PO BEDTIME HPI Comments Details: 63 y/o female patient with hx of psychogenic non epileptic seizure, bipolar, anxiety presents for follow up of seizure likely activity. Her in lab sleep study did not meet criteria for sleep apnea. Sleep efficiency PLM arousal index was 0.4/hr was 68% . Pt is not a good historian. Pt reports no more seizure activities since the last episode in Oct, 2022. she was admitted to hospital for behavior issue and bipolar to manage her medications. Pt was also had hyponatremia and needed to stop Tegretol. The last episode was on 10/25 and visit ED. Pt's states that patient was very agitated, and lost speech. Per patient's , patient's BP was very high, not sure exactly but SBP was higher than 190s. CT of brain result was no evidence of intracranial hemorrhage, mass effect or midline shift. Mild chronic small vessel ischemia and volume loss. Pt reports that the first seizure like episode was in 2021 while she was hospitalized in psychiatry unit for SI. She was overdosed, pt's reports she took her all her lisinopril and clonazepam at that time. Pt was prescribed keppra, but she did not like it and stopped taking it couple of days later. It caused more irritation and anxiety. She was prescribed keppra in the past, she did not like it, very irritated and stopped taking it after couple of days. COUNTS INCLUDE 234 BEDS AT THE [facility] Medical History Leiomyoma PTSD (post-traumatic stress disorder) Bipolar I disorder Tinea unguium History of psychogenic nonepileptic seizure Impaired fasting glucose Dyslipidemia (high LDL; low HDL) Hx of suicide attempt On beta baldemar at home Arthritis Anxiety Diastasis recti Umbilical hernia Compression fracture of L1 lumbar vertebra Dupuytren's contracture of left hand Lumbar disc herniation Essential hypertension Ventral hernia Urinary incontinence Surgical History H/O shoulder surgery Hx of elbow surgery Hx of repair of left rotator cuff Hx of colonoscopy History of lumbar fusion Family History Father Diabetes mellitus Mother COPD (chronic obstructive pulmonary disease) Sister Diabetes mellitus Glaucoma Other Mental health disorder Substance use disorder Social History Household Members: Other Household Members Other:: brother Housing: House Are you a primary ocular care technologist to a significant other at home: No Do you presently have visiting nurse or other home services: No Unable to assess alcohol history related to: Unknown Alcohol intake: current Alcohol intake frequency: holidays/special occasions only Patient Tobacco Use Status: Former Tobacco user Tobacco use type: Cigarette Cigarette Packs Per Day: 1 Cigarettes Per Day: 20.0 e-Cigarette/Vaping Use: Never Used Second Hand Smoke Exposure: No Substance Use Type: Marijuana Advance Directives Date on File: 11/26/22 service: No Current occupational status: disabled Sexual orientation: Straight/Heterosexual Cognitive needs: No Hearing needs: No Vision needs: No Review of Systems ENT Reports Normal hearing present Neuro Reports Normal hearing present Physical Exam Vital Signs: Last Vital Signs Pulse 84 08/22/23 08:22 Resp 16 08/22/23 08:22 BP 128/68 08/22/23 08:22 Pulse Ox 99 08/22/23 08:22 Oxygen Delivery Method Room Air 08/22/23 08:22 BMI result Body Mass Index 26.6 Const General: anxious Orientation/consciousness: patient oriented x3 Neck Neck: Yes full ROM and Yes supple Resp Effort & Inspection: normal respiratory effort and able to speak in complete sentences Neuro Other: No involuntary movements seen today General: patient oriented x3 and moves all extremities Cranial nerves: Yes Bilaterally intact EOM present, Yes Normal facial strength present, Yes Midline tongue present, Yes Symmetric palate elevation present, Yes Normal hearing present, Yes Ability to bilaterally rotate head present and Yes Ability to bilaterally elevate shoulders present Cognition (Neuro): normal cognition Gait exam (Neuro): Antalgic gait present Motor exam (neuro): 5/5 motor strength present throughout, Pronator motor function not present and no tremor noted Psych Appearance: grossly normal Affect: Anxious affect present Assessment & Plan Assessment & Plan (1) Snoring: Code(s): R06.83 - Snoring Category: Medical (2) History of psychogenic nonepileptic seizure: Code(s): Z87.898 - Personal history of other specified conditions Category: Medical (3) Daytime sleepiness: Code(s): R40.0 - Somnolence Category: Medical (4) Insomnia: Code(s): G47.00 - Insomnia, unspecified Category: Medical Plan Sleep study results were reviewed . No sleep apnea or sleep related movement disorders. No seizure like activity since 2022. she does not drive. I suggested she follow up with her psychiatrist and can be referred to [facility] if she has any further episodes. Coding Level of Care Code Est Pt Level 4 (68661) Diagnoses Snoring R06.83 History of psychogenic nonepileptic seizure Z87.898 Daytime sleepiness R40.0 Insomnia G47.00
[2023-08-22 08:22] VITALS: BP 128/68; PULSE 84; RESP 16; O2SAT 99; BMI 26.6
== END 2023-08-22 08:42 | disposition home or self-care (01) ==
PROVIDERS: PCP Internal Medicine; Visit Provider Psychiatry & Neurology Neurology
DX: R06.83 Snoring (principal); Z87.898 Personal history of other specified conditions; R40.0 Somnolence; G47.00 Insomnia, unspecified
CPT/HCPCS: 99214

== ENCOUNTER → 2023-08-22 08:17 | Outpatient (BNVA) | payer OTHER, SELFPAY | PROVIDERS: PCP Internal Medicine; Visit Provider Psychiatry & Neurology Neurology | DX: R40.0 Somnolence (principal); G47.00 Insomnia, unspecified; R06.83 Snoring; Z87.898 Personal history of other specified conditions | CPT/HCPCS: 99212 ==

== ENCOUNTER 2023-10-23 10:53 | Outpatient (AMB) | payer OTHER, SELFPAY ==
[2023-10-23 11:36] VITALS: BP 120/76; PULSE 72; O2SAT 97; BMI 26.4
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
== END 2023-10-23 14:39 | disposition home or self-care (01) ==
PROVIDERS: PCP Internal Medicine; Visit Provider Internal Medicine
DX: Z00.00 Encounter for general adult medical examination without abnormal findings (principal); F31.9 Bipolar disorder, unspecified; I10 Essential (primary) hypertension; E78.5 Hyperlipidemia, unspecified; R73.01 Impaired fasting glucose; Z12.11 Encounter for screening for malignant neoplasm of colon
CPT/HCPCS: 99396

== ENCOUNTER 2023-10-24 06:46 | Outpatient (REF) | payer OTHER, SELFPAY ==
[2023-10-24 10:05] LABS: MANUAL DIFF FLAG NO
[2023-10-24 10:36] LABS: Alanine Aminotransferase 21 U/L (0-31); Anion Gap 12 (12-20); Aspartate Amino Transferase 20 U/L (5-31); Blood Urea Nitrogen 12 mg/dL (9-16); Carbon Dioxide 27 mmol/L (22-29); Chloride 96 mmol/L (96-108); Cholesterol 205 mg/dL (<200); Estimated Glomerular Filt Rate > 60; Glucose Fasting 108 mg/dL (60-99); HDL Cholesterol 52 mg/dL (>40); LDL Cholesterol Calculated 134 mg/dL (<100); Potassium 4.3 mmol/L (3.3-5.1); Sodium 131 mmol/L (135-145); Triglycerides 98 mg/dL (<150)
[2023-10-24 10:58] LABS: Vitamin D 25-OH Total 62.8 ng/mL (>30)
[2023-10-24 11:04] LABS: Folate 17.1 ng/mL (> or = 4.0); Vitamin B12 1424 pg/mL (200-900)
[2023-10-24 11:19] LABS: Basophils Percent Auto 0.7 % (0-2); Eosinophils Absolute Auto 0.2 X10*3/uL (0.0-0.4); Hematocrit 37.5 % (37.0-47.0); Hemoglobin 13.2 g/dl (12.0-16.0); Imm Gran Abs Auto 0.03 X10*3/uL (0.00-0.03); Imm Gran Pct Auto 0.5 % (0.0-0.4); Lymphocytes Absolute Auto 2.1 X10*3/uL (1.2-4.9); Lymphocytes Percent Auto 34.5 % (20-40); Mean Corpuscular HGB Conc 35.2 g/dl (31.0-35.0); Mean Corpuscular Hemoglobin 30.4 pg (27.0-33.0); Mean Corpuscular Volume 86.4 fL (80.0-98.0); Mean Platelet Volume 10.1 fL (9.4-12.3); Monocytes Absolute Auto 0.4 X10*3/uL (0.1-1.2); Monocytes Percent Auto 7.4 % (2-11); Neutrophils Absolute Auto 3.2 x10*3/uL (2.0-8.3); Neutrophils Percent Auto 53.9 % (45-73); Platelet Count 291 X10*3/uL (160-400); Red Blood Count 4.34 X10*6/uL (4.20-5.50); Red Cell Distribution Width 12.2 % (11.0-16.0); White Blood Count 5.9 X10*3/uL (4.8-10.8)
== END 2023-10-24 06:47 | disposition home or self-care (01) ==
LOC: HO.HMGCLDS 06:46
PROVIDERS: PCP Internal Medicine; Visit Provider Internal Medicine
DX: Z00.01 Encounter for general adult medical examination with abnormal findings (principal); I10 Essential (primary) hypertension; E78.5 Hyperlipidemia, unspecified; R73.01 Impaired fasting glucose; F31.9 Bipolar disorder, unspecified
CPT/HCPCS: 36415; 80048; 80061; 82306; 82607; 82746; 84450; 84460; 85025

== ENCOUNTER 2023-12-26 10:47 | Outpatient (REF) | payer OTHER, SELFPAY ==
--- NOTE | ~2023-12-26 | MM_ITS ---
EXAMINATION: MM DIAGNOSTIC DIGITAL BREAST TOMOSYNTHESIS, BILATERAL CLINICAL INFORMATION: Six-month follow-up for probably benign left breast calcifications slightly inferior lateral left breast, mid to anterior one third. Patient also due for yearly. COMPARISON: Mammography: 06/21/2023, 12/20/2022 (BI-RADS 3), 11/01/2022, 10/23/2021, and priors. TECHNIQUE: Digital breast tomosynthesis is performed in both the craniocaudal and mediolateral oblique views along with computer-aided detection (CAD). Synthesized 2D images are generated from the tomosynthesis. In addition to standard views, 2-D spot magnification left CC x1 and ML x2 views were also obtained, right spot compression 3-D CC and MLO views, as well as a full field added right 3-D MLO view. FINDINGS: There are scattered areas of fibroglandular density (ACR BI-RADS breast composition Category b). Calcifications in the slightly inferior lateral left breast, mid to anterior one third are stable without aggressive changes over one year. These remain probably benign. Otherwise, there are no suspicious masses, suspicious grouped calcifications, or areas of architectural distortion in either breast. The parenchymal pattern is stable from prior exams. There is no skin or axillary abnormality. MM/MM tomosynthesis diagnostic BI IMPRESSION: -There are no findings suspicious for malignancy in either breast. -Calcifications present in the slightly inferior and lateral left breast, mid to anterior one third, are stable without aggressive changes over one year. Recommend one-year follow-up to establish a 2 year stability and benignity. ASSESSMENT: BI-RADS BI-RADS 3 - Probably benign finding(s) - 12 month follow-up suggested RECOMMENDATION: 12 month diagnostic follow up Results were provided to the patient at time of visit by the technologist. This patient's information was entered into a reminder system with a target due date for their next mammogram. Electronically signed by: Marcos Silva MD 12/26/2023 11:56 AM [facility] [place]
== END 2023-12-26 10:48 | disposition home or self-care (01) ==
LOC: HO.MAMMO 10:47
PROVIDERS: PCP Internal Medicine; Visit Provider Internal Medicine
DX: R92.1 Mammographic calcification found on diagnostic imaging of breast (principal)
CPT/HCPCS: 77062; 77066

== ENCOUNTER → 2023-12-26 11:00 | Outpatient (BNV) | payer OTHER, SELFPAY | PROVIDERS: PCP Internal Medicine; Visit Provider Radiology Diagnostic Radiology | DX: R92.1 Mammographic calcification found on diagnostic imaging of breast (principal) | CPT/HCPCS: 77066; G0279 ==

== ENCOUNTER 2024-03-31 08:40 | Outpatient (AMB) | payer OTHER, SELFPAY ==
--- NOTE | 2024-03-31 08:42 | MHC.OFFVIS ---
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 She is doing well with hadoop infrastructure architect concerns. Currently not sexually active. Denies any vaginal dryness, irritation, pelvic pain, bloating, pressure, or vaginal bleeding. STI testing offered; she declined. She admits to having constipation. Attempting to eat a healthy diet with calcium and vitamin D and stays active with exercise. Last pap smear; 2022. Last mammogram; 2023. ColoGard is up to date. Denies any family history of breast, ovarian or colon cancer. [facility] Medical History (Updated 03/31/24 @ 08:55 by Deepali Yoon CNM) Labile hypertension Leiomyoma PTSD (post-traumatic stress disorder) Bipolar I disorder Tinea unguium History of psychogenic nonepileptic seizure Impaired fasting glucose Dyslipidemia (high LDL; low HDL) Hx of suicide attempt On beta baldemar at home Arthritis Anxiety Diastasis recti Umbilical hernia Compression fracture of L1 lumbar vertebra Dupuytren's contracture of left hand Lumbar disc herniation Essential hypertension Ventral hernia Urinary incontinence Surgical History H/O shoulder surgery Hx of elbow surgery Hx of repair of left rotator cuff Hx of colonoscopy History of lumbar fusion Family History Father Diabetes mellitus Mother COPD (chronic obstructive pulmonary disease) Sister Diabetes mellitus Glaucoma Other Mental health disorder Substance use disorder Social History Household Members: Other Household Members Other:: brother Housing: House Are you a primary medicare coordinator to a significant other at home: No Do you presently have visiting nurse or other home services: No Unable to assess alcohol history related to: Unknown Alcohol intake: current Alcohol intake frequency: holidays/special occasions only Patient Tobacco Use Status: Former Tobacco user Tobacco use type: Cigarette Cigarette Packs Per Day: 1 Cigarettes Per Day: 20.0 e-Cigarette/Vaping Use: Never Used Second Hand Smoke Exposure: No Substance Use Type: Marijuana Advance Directives Date on File: 11/26/22 service: No Current occupational status: disabled Sexual orientation: Straight/Heterosexual Cognitive needs: No Hearing needs: No Vision needs: No Female Reproductive History Menstrual Total pregnancies: 3 Full term: 3 Date of last pap smear: 03/07/22 (negative pap smear, negative hpv) History of abnormal pap smear: No History of STI: No Date of Mammogram: 12/26/23 (bi rad 3) Date of last Bone Density Screenin11/01/22 Review of Systems Const All systems reviewed & are unremarkable except as noted in HPI and below Reports as per HPI Eyes Reports no additional complaints ENT Reports no additional complaints Card Reports no additional complaints Resp Reports no additional complaints GI Reports as per HPI and Reports no additional complaints Reports as per HPI Musc Reports no additional complaints Skin/Breast Reports as per HPI Neuro Reports no additional complaints Psych Reports no additional complaints Endo Reports no additional complaints Dayo/Lymph Reports no additional complaints Aller/Immun Reports no additional complaints Physical Exam Vital Signs: Last Vital Signs BP 92/60 03/31/24 08:49 BMI result Body Mass Index 25.7 Const General: cooperative, healthy appearing, no acute distress, well developed and alert Orientation/consciousness: patient oriented x3 HEENT Head: Yes normal to inspection Eyes General: appearance normal, both eyes and all related structures Neck Neck: Yes normal visual inspection Thyroid: Thyroid normal Chest Chest palpation & inspection: normal inspection of the chest and other (no puckering, dimpling, peau de orange, retraction, discharge, masses) Breast/axilla inspection: normal inspection of the breasts Breast/axilla palpation: normal palpation of the breasts Resp Effort & Inspection: normal respiratory effort GI Inspection: Yes normal to inspection Palpation (GI): Soft to palpation Rectal Exam - Female: deferred General: Yes bladder normal to palpation External Female Exam: normal external appearance and normal appearance of the urethra Speculum Exam - Vagina: normal appearance of the vagina, normal palpation, normal vaginal discharge and vagina atrophic Speculum Exam - Cervix: normal appearance of the cervix and normal palpation Bimanual exam- vagina & uterus: normal bimanual exam, normal palpation, uterine size normal, bladder normal to palpation, normal palpation and non-tender Bimanual Exam- Adnexa, other: no masses Skin General skin exam: no rashes or lesions noted Rashes: no rashes Neuro General: patient oriented x3 Cognition (Neuro): normal cognition Extrem General: Yes normal to inspection Psych Other: Pt. made a comment at the end of her examination, That was the best sex I've had in a long time. I responded that this was a professional examination. Head Of Integrated Media present for entire exam. Attitude: cooperative Thought process: Normal thought process present Assessment & Plan Assessment & Plan (1) Encounter for well woman exam with routine gynecological exam: Code(s): Z01.419 - Encounter for gynecological examination (general) (routine) without abnormal findings Category: Medical Plan Discussed: Current recommendations for pap smears per ASCCP guidelines. Breast awareness, periodic self breast exams and yearly mammogram. Maintain a healthy lifestyle, well balanced diet including Calcium 1,200 mg and Vitamin D 600 IU daily, and routine exercise. Contact the office with any postmenopausal bleeding. Patient verbalizes understanding and agrees to the plan of care. She was given opportunity to ask questions and all questions were answered to the best of my ability. RTO in 1 year for annual hadoop infrastructure architect exam. This note is constructed using voice recognition software. While every effort has been made to ensure accuracy, credit verifier errors may have been included. Coding Level of Care Code Est Pt Prev Care 40-64y(73854) Diagnoses Encounter for well woman exam with routine gynecological exam Z01.419
[2024-03-31 08:49] VITALS: BP 92/60; BMI 25.7
--- OUTSIDE RECORDS SUMMARY | 2024-03-31 09:07 | XMS_ITS ---
Author Organization [facility] Address [address] [place] [address] Care Team Providers Care Finance Accounting Internship Name Role Phone Billy SMALLS, Suzanna Romeo Primary Care Provider Un available Lidia Lynn [phone] Encounters Encounter Location Date Provider Diagnosis [address] [address] 12/17/2022 Lidia Lynn Plan Of Treatment No Information Progress Notes * Caryn BAI ADOB: 2 (64 yo F)Acc No.[id number]:12/17/2022 Progress Note Patient:?Caryn BAI Provider:?Lidia Lynn DPM :1960???Age:62 Y???Sex:Female D ate:12/17/2022 Address:[address] [place], [place] [id number] Pcp:Anna Rehman Subjective: * Chief Complaints: * ??? * Medical History:? Objective: * Vitals:? Assessment: Plan: * Treatment: * Images: * The named appointment provid er may or may not be the originator of this progress note, and it is not deemed complete until electronically signed by the appointment provider. Sign off status: Pending * Provider:Paulino Lynn DPM Date:?2022 Generated for Atif castellanos/Mare/eTransmitting on:?03/31/2024 09:07 AM EST
--- OUTSIDE RECORDS SUMMARY | 2024-03-31 09:08 | XMS_ITS | Clinical Summary ---
Author Organization [facility] it Address [address] [place] [address] Care Team Providers Care Research Professional Name Role Phone Unavailable Primary Care Provider Unavailabl e Social History Tobacco Use Types Packs/Day Years Used Date Smoking Tobacco: Never Assessed Comments Unknown Sex and Gender Information Value Date Recorded Sex Assigned at Not on file Legal Sex Female 12:21 AM EST Gender Identity Not on file Sexual Orientation Not on file Plan of Treatment Health Maintenance Due Date Last Done Comments Breast Cancer Screening 1960 DTaP,Tdap,and Td Vaccines (1 - Tdap) 1980 Cervical Cancer Screening: P ap Smear 1982 Pneumococcal Vaccine: 50+ Ye ars (1 of 1 - PCV) 2011 Zoster Vaccines (1 of 2) 2011 Colorectal Cancer Screening: Colonoscopy 01/14/2022 Depression Screening 01/14/2022 HIV Screening 01/14/2022 Hepatitis C Screening 01/14/2022 Social Influencers of Health Screening 01/14/2022 COVID-19 Vaccine ( - 2023-2 5 season) 2023 Influenza Vaccine (#1) 2023 RSV Immunization Patients 60 + Years Old (1 - 1-dose 75+ series) 2036 HIB Vaccines Aged Out No longer eligi ble based on patient's age to complete this topic HPV Vaccines Aged Out No longer eligi ble based on patient's age to complete this topic Hepatitis A Vaccines Aged Out No long er eligible based on patient's age to complete this topic Hepatitis B Vaccines Aged Out No long er eligible based on patient's age to complete this topic IPV Vaccines Aged Out No longer eligi ble based on patient's age to complete this topic MMR Vaccines Aged Out No longer eligi ble based on patient's age to complete this topic Meningococcal ACWY Vaccine Aged Out N o longer eligible based on patient's age to complete this topic Meningococcal B Vacine Aged Out No lo nger eligible based on patient's age to complete this topic Pneumococcal Vaccine: Pediat rics (0 to 5 Years) and At-Risk Patients (6 to 64 Years) Aged Out No longer eligible b ased on patient's age to complete this topic RSV Immunization Patients Un travis 20 months Aged Out No longer eligible b ased on patient's age to complete this topic Varicella Vaccines Aged Out No longer eligible based on patient's age to complete this topic
--- OUTSIDE RECORDS SUMMARY | 2024-03-31 09:08 | XMS_ITS ---
Author Organization [facility] Address [address] [place] [address] Care Team Providers Care Face Cleaner Name Role Phone Billy SMALLS, Suzanna Romeo Primary Care Provider Un available BlackLidia Unavailable [phone] REASON FOR VISIT cx appt 12/17 Encounters Encounter Location Date Provider Diagnosis [facility] [address] [place] [address] 12/17/2022 Lidia Lynn Plan Of Treatment No Information Progress Notes * Caryn BAI ADOB: [birth year] (62 yo F)Acc No.[id number]:12/17/2022 Patient:?Caryn Bai :1960???Age:62 Y???Sex:Female Address:[address] [place] [address], [address] * true * Date:? Generated for Atif castellanos/Mare/eTransmitting on:?03/31/2024 09:07 AM EST
--- OUTSIDE RECORDS SUMMARY | 2024-03-31 09:08 | XMS_ITS | Clinical Summary ---
Author Organization Unknown Care Team Providers Care Deckhand Crab Boat Name Role Phone SHANNAN SMALLS, NOEMI PANTOJA Unavailable Unavaila malik JUNIOR RN, HALEY Rodriguez Unavailable Payers Payer Name Policy Type Policy Number Effective Date Expira tion Date [facility] [place] [id number] MEDICAID [facility] [id number] MEDICARE - [facility] [facility] [place] [id number] Problems Condition Name Condition Details Condition Category Status Onset Date Resolution Date Last Treatment Date Treating Clinician Comments BIPOLAR DISORDER, UNSPECIFIED Active 02-12 00:00: 00 Allergies, Adverse Reactions, Alerts Allergy Name Allergy Type Status Severity Reaction(s) Onset Date Inactive Date Treating Clinician Comments NKA Propensity to adverse reactions Active 2023-02 22:22:5 2 Medications Ordered Medication Name Filled Medication Name Start Date Stop Date Current Medication? Ordering Clinician Indication Dosage Frequency Signature (SIG) Comments Components lisinopril 20 mg tablet 03-04 00:00: 00 04-28 23:59 :00 No [id number] Per instruc tions EVERY Per instructio ns EVERY (route: oral) Med Classific ation: Cardiovas cular Therapy Agents melatonin 3 mg tablet 04-28 00:00: 00 02-11 23:59 :00 No [id number] 1 tablet BEDTIME 1 tablet BEDTIME (route: oral) Med Classific ation: Central Nervous System Agents metoprolol succinate ER 50 mg tablet,exte nded release 24 hr 04-28 00:00: 00 02-11 23:59 :00 No [id number] 1 tablet DAILY 1 tablet DAILY (route: oral) Med Classific ation: Cardiovas cular Therapy Agents thiamine HCl (vitamin B1) 100 mg tablet 04-28 00:00: 00 02-11 23:59 :00 No [id number] 1 tablet DAILY 1 tablet DAILY (route: oral) Med Classific ation: Electroly te Balance-N utritiona l Products Seroquel 25 mg tablet 08 00:00: 00 06-26 23:59 :00 No [id number] 1-2 tablet 2 TIMES DAILY 1-2 tablet 2 TIMES DAILY (route: oral) Med Classific ation: Central Nervous System Agents lisinopril 20 mg tablet 06-28 00:00: 00 02-11 23:59 :00 No [id number] 1 tablet EVERY AM 1 tablet EVERY AM (route: oral) Med Classific ation: Cardiovas cular Therapy Agents olanzapine 15 mg tablet 06-28 00:00: 00 02-11 23:59 :00 No [id number] 1 tablet BEDTIME 1 tablet BEDTIME (route: oral) Med Classific ation: Central Nervous System Agents trazodone 100 mg tablet 06-28 00:00: 00 02-11 23:59 :00 No [id number] Per instruc tions BEDTIME Per instructio ns BEDTIME (route: oral) Med Classific ation: Central Nervous System Agents amlodipine 5 mg tablet 02-20 00:00: 00 04-16 23:59 :00 No [id number] 5 mg EVERY AM 5 mg EVERY AM (route: oral) Med Classific ation: Cardiovas cular Therapy Agents benztropine 0.5 mg tablet 02-20 00:00: 00 Yes [id number] 0.5 mg BEDTIME 0.5 mg BEDTIME (route: oral) Med Classific ation: Central Nervous System Agents carvedilol 6.25 mg tablet 02-20 00:00: 00 02-21 23:59 :00 No [id number] 6.25 mg EVERY AM 6.25 mg EVERY AM (route: oral) Med Classific ation: Cardiovas cular Therapy Agents clonidine HCl 0.1 mg tablet 02-20 00:00: 00 Yes [id number] 0.1 mg NEEDED 0.1 mg NEEDED (route: oral) Med Classific ation: Cardiovas cular Therapy Agents haloperidol 5 mg tablet 02-20 00:00: 00 Yes [id number] 5 mg EVERY AM 5 mg EVER Y AM (route: oral) Med Classific ation: Central Nervous System Agents lamotrigine 25 mg tablet - 00:00: 00 05-07 23:59 :00 No [id number] 25 mg BEDTIME 25 mg BEDTIME (route: oral) Med Classific ation: Central Nervous System Agents melatonin 3 mg tablet - 00:00: 00 Yes [id number] 3 mg BEDTIME 3 mg BEDTIME (route: oral) Med Classific ation: Central Nervous System Agents multivitami n tablet - 00:00: 00 Yes [id number] 1 tablet EVERY AM 1 tablet EVERY AM (route: oral) Med Classific ation: Electroly te Balance-N utritiona l Products zolpidem 10 mg tablet 02-20 00:00: 00 Yes [id number] 10 mg BEDTIME 10 mg BEDTIME (route: oral) Med Classific ation: Central Nervous System Agents carvedilol 6.25 mg tablet - 00:00: 00 Yes [id number] 6.25 tablet 2 TIMES DAILY 6.25 tablet 2 TIMES DAILY (route: oral) Med Classific ation: Cardiovas cular Therapy Agents Haldol Decanoate 50 mg/mL intramuscul ar solution 2-05 00:00: 00 Yes [id number] 1 mL MONTHLY 1 mL MONTHLY (route: intramuscu lar) Med Classific ation: Central Nervous System Agents amitriptyli ne 10 mg tablet 05-07 00:00: 00 Yes [id number] 1 tablet BEDTIME 1 tablet BEDTIME (route: oral) Med Classific ation: Central Nervous System Agents Lamictal 100 mg tablet 05-07 00:00: 00 Yes [id number] 1 tablet BEDTIME 1 tablet BEDTIME (route: oral) Med Classific ation: Central Nervous System Agents clonazepam 2 mg tablet 4-29 00:00: 00 Yes [id number] 0.5 tablet 2 TIMES DAILY 0.5 tablet 2 TIMES DAILY (route: oral) Med Classific ation: Central Nervous System Agents amoxicillin 500 mg tablet 02-27 00:00: 00 03-06 23:59 :00 No [id number] 1 tablet 3 TIMES DAILY 1 tablet 3 TIMES DAILY (route: oral) Med Classific ation: Anti-Infe ctive Agents chlorhexidi ne gluconate 0.12 % mouthwash 02-27 00:00: 00 Yes [id number] 15 mL DAILY 15 mL DAILY (route: mucous membrane) Med Classific ation: Mouth-Thr oat-Denta l - Preparati ons IBU 600 mg tablet 02-27 00:00: 00 03-06 23:59 :00 No [id number] 1 tablet 4 TIMES DAILY 1 tablet 4 TIMES DAILY (route: oral) Med Classific ation: Analgesic , Anti-infl ammatory or Antipyret ic oxycodone-a cetaminophe n 5 mg-325 mg tablet 02-27 00:00: 00 Yes [id number] 1 tablet EVERY 6 HOURS 1 tablet EVERY 6 HOURS (route: oral) Med Classific ation: Analgesic , Anti-infl ammatory or Antipyret ic Vital Signs Vital Name Observation Time Observation Value Commen ts Temperature 2024-03-20 16:23:00.000 97.9 [degF] Temperature 2024-03-18 17:15:00.000 97.1 [degF] Temperature 2024-03-16 17:15:00.000 97.9 [degF] Temperature 2024-03-11 12:40:00.000 97.3 [degF] Temperature 2024-03-09 16:14:00.000 97.7 [degF] Temperature 2024-03-04 15:12:00.000 97.4 [degF] Temperature 2024-03-02 12:32:00.000 97.6 [degF] Pulse 2024-03-25 16:21:00.000 65 /min Pulse 2024-03-20 16:23:00.000 60 /min Pulse 2024-03-18 17:15:00.000 61 /min Pulse 2024-03-16 17:15:00.000 59 /min Pulse 2024-03-11 12:40:00.000 56 /min Pulse 2024-03-09 16:14:00.000 78 /min Pulse 2024-03-04 15:12:00.000 67 /min Pulse 2024-03-02 12:32:00.000 65 /min Respirations 2024-03-25 16:21:00.000 18 /min Respirations 2024-03-20 16:23:00.000 18 /min Respirations 2024-03-18 17:15:00.000 18 /min Respirations 2024-03-16 17:15:00.000 18 /min Respirations 2024-03-11 12:40:00.000 18 /min Respirations 2024-03-09 16:14:00.000 18 /min Respirations 2024-03-04 15:12:00.000 18 /min Respirations 2024-03-02 12:32:00.000 18 /min Systolic Blood Pressure 2024-03-25 16:21:00.000 122 mm [Hg] Systolic Blood Pressure 2024-03-20 16:23:00.000 117 mm [Hg] Systolic Blood Pressure 2024-03-18 17:15:00.000 104 mm [Hg] Systolic Blood Pressure 2024-03-16 17:15:00.000 92 mm[ Hg] Systolic Blood Pressure 2024-03-11 12:40:00.000 106 mm [Hg] Systolic Blood Pressure 2024-03-09 16:14:00.000 110 mm [Hg] Systolic Blood Pressure 2024-03-04 15:12:00.000 110 mm [Hg] Systolic Blood Pressure 2024-03-02 12:32:00.000 93 mm[ Hg] Diastolic Blood Pressure 2024-03-25 16:21:00.000 87 mm [Hg] Diastolic Blood Pressure 2024-03-20 16:23:00.000 85 mm [Hg] Diastolic Blood Pressure 2024-03-18 17:15:00.000 85 mm [Hg] Diastolic Blood Pressure 2024-03-16 17:15:00.000 79 mm [Hg] Diastolic Blood Pressure 2024-03-11 12:40:00.000 79 mm [Hg] Diastolic Blood Pressure 2024-03-09 16:14:00.000 80 mm [Hg] Diastolic Blood Pressure 2024-03-04 15:12:00.000 83 mm [Hg] Diastolic Blood Pressure 2024-03-02 12:32:00.000 74 mm [Hg] Plan of Treatment Planned Activity Planned Date Details Comments Future Scheduled Test SKILLED NU RSE TO EVALUATE PATIENT, IDENTIFY PRIMARY AND CO-MORBID CONDITIONS CODED PER CODING GUIDELINES, AND DEVELOP PATIENT SPECIFIC PLAN OF CARE THAT INCLUDES PATIENT GOAL FOR HOME HEALTH. [code = SKILLED NURSE TO EVALUATE PATIENT, IDENTIFY PRIMARY AND CO-MORBID CONDITIONS CODED PER CODING GUIDELINES, AND DEVELOP PATIENT SPECIFIC PLAN OF CARE THAT INCLUDES PATIENT GOAL FOR HOME HEALTH.] Future Scheduled Test SKILLED NU RSE TO PRE-POUR MEDICATION PER MEDICATION LIST EACH VISIT [code = SKILLED NURSE TO PRE-POUR MEDICATION PER MEDICATION LIST EACH VISIT ] Future Scheduled Test SKILLED NU RSE TO O/A OF PATIENTS MENTAL/BEHAVIORAL STATUS, ASSESS VITAL SIGNS EACH VISIT ALLOW 2 PRNS FOR MEDICATION MANAGEMENT. [code = SKILLED NURSE TO O/A OF PATIENTS MENTAL/BEHAVIORAL STATUS, ASSESS VITAL SIGNS EACH VISIT ALLOW 2 PRNS FOR MEDICATION MANAGEMENT.] Future Scheduled Test SKILLED NU RSE FOR O/A OF ALTERED MOOD [code = SKILLED NURSE FOR O/A OF ALTERED MOOD] Future Scheduled Test SKILLED NU RSE FOR O/A OF GENERAL HEALTH STATUS OF PAIN, CARDIAC, RESPIRATORY, GASTROINTESTINAL, GENITOURINARY, SKIN, NEUROLOGIC, ENDOCRINE SYSTEMS TO IDENTIFY CHANGES ASSOCIATED WITH EXACERBATION FOR EARLY INTERVENTION OF COMPLICATIONS WEEKLY. [code = SKILLED NURSE FOR O/A OF GENERAL HEALTH STATUS OF PAIN, CARDIAC, RESPIRATORY, GASTROINTESTINAL, GENITOURINARY, SKIN, NEUROLOGIC, ENDOCRINE SYSTEMS TO IDENTIFY CHANGES ASSOCIATED WITH EXACERBATION FOR EARLY INTERVENTION OF COMPLICATIONS WEEKLY.] Future Scheduled Test SKILLED NU RSE FOR O/A AND SKILLED TEACHING RELATED TO MANAGEMENT OF DEPRESSIVE SYMPTOMS AND/OR DEPRESSION. SN TO REPORT SIGNIFICANT CHANGE IN DEPRESSIVE SYMPTOMS TO CLINICAL PROVIDER FOR EARLY INTERVENTION. [code = SKILLED NURSE FOR O/A AND SKILLED TEACHING RELATED TO MANAGEMENT OF DEPRESSIVE SYMPTOMS AND/OR DEPRESSION. SN TO REPORT SIGNIFICANT CHANGE IN DEPRESSIVE SYMPTOMS TO CLINICAL PROVIDER FOR EARLY INTERVENTION.] Future Scheduled Test SKILLED NU RSE FOR ADMINISTRATION AND TEACHING OF PRESCRIBED INJECTION THERAPY FOR HALDOL DECANOATE 50 MG/ML INTRAMUSCULAR SOLUTION1 ML, MONTHLY [code = SKILLED NURSE FOR ADMINISTRATION AND TEACHING OF PRESCRIBED INJECTION THERAPY FOR HALDOL DECANOATE 50 MG/ML INTRAMUSCULAR SOLUTION1 ML, MONTHLY] Future Scheduled Test SKILLED NU RSE TO ASSESS PATIENTS PSYCHOSOCIAL STATUS TO IDENTIFY POTENTIAL ISSUES THAT MAY COMPLICATE THE PROVISION OF THE PLAN OF CARE INCLUDING THE PATIENTS ABILITY TO ACCESS COMMUNITY RESOURCES AND PSYCHOSOCIAL SUPPORT SERVICES. [code = SKILLED NURSE TO ASSESS PATIENTS PSYCHOSOCIAL STATUS TO IDENTIFY POTENTIAL ISSUES THAT MAY COMPLICATE THE PROVISION OF THE PLAN OF CARE INCLUDING THE PATIENTS ABILITY TO ACCESS COMMUNITY RESOURCES AND PSYCHOSOCIAL SUPPORT SERVICES.] Future Scheduled Test SKILLED NU RSE WILL MAINTAIN SITUATIONAL AWARENESS FOR SAFETY AND WILL NOTIFY CLINICAL PELOTA MAKER AND PHYSICIAN/PROVIDER WITH ANY CHANGE IN CONDITION. [code = SKILLED NURSE WILL MAINTAIN SITUATIONAL AWARENESS FOR SAFETY AND WILL NOTIFY CLINICAL PELOTA MAKER AND PHYSICIAN/PROVIDER WITH ANY CHANGE IN CONDITION.] Goal 2023-04-17 Patient Goal - TAKING MY MED S Goal 2023-06-17 Patient Goal - TAKING MY MED S Goal 2023-08-16 Patient Goal - G AIM MORE ENDURANCE AND EAT NUTRITIONAL FOOD Goal 2023-10-15 Patient Goal - G AIM MORE ENDURANCE AND EAT NUTRITIONAL FOOD Goal 2023-12-12 Patient Goal - T O GET MY OWN PLACE AND CAR Goal 2024-02-10 Patient Goal - T O GET MY OWN PLACE AND CAR Goal Patient Goal - T O GET MY OWN PLACE AND CAR Goal Provider Goal - A PLAN OF CARE WILL BE ESTABLISHED THAT MEETS PATIENT'S SENIOR CARE NEEDS AND INCLUDES PATIENT GOAL FOR HOME HEALTH. Goal Provider Goal - PATIENT WILL COMPLY WITH MEDICATION WHEN SKILLED NURSE PRE-POURS MEDICATION THROUGHOUT CERTIFICATION PERIOD. Goal Provider Goal - ALTERED MENTAL/BEHAVIORAL STATUS WILL BE IDENTIFIED PROMPTLY AND INTERVENTION INITIATED QUICKLY TO MINIMIZE ASSOCIATED RISKS THROUGHOUT CERTIFICATION PERIOD. Goal Provider Goal - PATIENT WILL BE ABLE TO PERFORM DAILY FUNCTIONS AND HAVE OPTIMAL IMPROVEMENT IN MOOD STABILITY THROUGHOUT CERTIFICATION PERIOD. Goal Provider Goal - CHANGE IN GENERAL HEALTH STATUS WILL BE IDENTIFIED AND REPORTED TO PHYSICIAN FOR PROMPT INTERVENTION TO MINIMIZE ASSOCIATED RISKS THROUGHOUT CERTIFICATION PERIOD. Goal Provider Goal - PATIENT WILL REMAIN SAFE WITHOUT DECOMPENSATION IN DEPRESSIVE CONDITION, WHILE MAINTAINING OPTIMAL LEVEL OF MENTAL HEALTH AND WELL BEING THROUGHOUT CERTIFICATION PERIOD. Goal Provider Goal - PATIENT WILL RECEIVE HALDOL DECANOATE 50 MG/ML INTRAMUSCULAR SOLUTION1 ML, MONTHLY ORDERED. PATIENT/CAREGIVER WILL VERBALIZE/DEMONSTRATE KNOWLEDGE OF INJECTION THERAPY BY THE END OF THE CERTIFICATION PERIOD. Goal Provider Goal - PSYCHOSOCIAL NEEDS WILL BE IDENTIFIED AND PLAN IMPLEMENTED TO MINIMIZE RISK THROUGHOUT CERTIFICATION PERIOD. Goal Provider Goal - PATIENT WILL REMAIN SAFE IN THE COMMUNITY AND WILL BE FREE OF DANGER TO SELF AND OTHERS THROUGHOUT THE CERTIFICATION PERIOD. Progress Notes Progress Notes <paragraph>[Visit Date: 2024 by HALEY JUNIOR RN]:</paragraph><paragraph>INJECTION ADMINISTERED ON HER RIGHT GLUTEAL</paragraph> Encounters Start Date/Time End Date/Time Encounter Type Admission Type Attending [facility] Care Department Encounter ID Discharge Date Discharge Status Discharge Condition Discharge Reason Percent Goals Met 2023-02-20 00:00:00 2024-04-14 00:00:00 Outpatient RECERTIFIC HALEY [facility] [id number] 42.86
--- OUTSIDE RECORDS SUMMARY | 2024-03-31 09:08 | XMS_ITS ---
Author Organization [facility] [employer] [facility] Address [address] [place] [address] Care Team Providers Care College Sports Coach Name Role Phone Billy SMALLS, Suzanna Romeo Primary Care Provider Un available Lidia Lynn Unavailable [phone] Allergies Allergen (clinical drug ingredient) Drug/Non Drug Allergy documented on EMR Reaction Allergy Type Onset Date Status olanzapine OLANZapine dizziness, blurred vision, tired Drug Allergy Active REASON FOR VISIT Painful nail(s) aggrevated by shoes and causing difficulty standing/walking., Wart(s) Medications Medication SIG (Take, Route, Frequency, Duration) Notes Start Date End Date Status Metoprolol Succinate Not-Taking Lisinopril 20 MG 1 tablet Orally Once a day for 30 day(s) Not-Taking Haloperidol Decanoate 50 MG/ML Intramuscular for 56 Days Active cloNIDine HCl 0.1 MG TAKE 1 TABLET BY [facility] TWICE DAILY NEEDED Oral for 30 Days Active lamoTRIgine 25 MG Oral for 30 Days Active Melatonin Active OLANZapine 15 MG 1 tablet Orally Once a day for 30 day(s) Active Haloperidol 5 MG Oral for 30 Days Active Vitamin B1 Active Benztropine Mesylate 0.5 MG Oral for 30 Days Active hydrOXYzine Pamoate 25 MG (Prior Auth: Rx Ref#:[id number]) Oral for 30 Not-Taking Terbinafine HCl 250 MG 1 tablet Orally O nce a day fro 7 days then stop for 3 weeks repeat cycle for 90 days Active Ciclopirox Olamine 0.77 % 1 application Externally Twice a day for 30 days 04/13/2019 Not-Taki ng Carvedilol Active Metoprolol Succinate ER 50 MG (Prior Auth: Rx Ref#:[id number]) Oral for 30 Not-Taking risperiDONE 1 MG (Prior Auth: Rx Ref#:[id number]) Oral for 30 Not-Taking Sertraline HCl 100 MG (Prior Auth: Rx Ref#:[id number]) Oral for 30 Not-Taking Terbinafine HCl 250 MG 1 tablet Orally O nce a day for 7 days stop for 3 weeks repeat cycle for 90 days 01/18/2021 Not-Taking Lisinopril 20 MG (Prior Auth: Rx Ref#:[id number]) Oral for 90 Not-Taking Multivitamin Adult - as directed Orally Not-Taking Garlic Not-Taking Mirtazapine Not-Taki ng Glucosamine Not-Taki ng Ciclopirox Olamine 0.77 % 1 application Externally Twice a day for 30 days 03/31/2020 Not-Taki ng clonazePAM 2 MG (Schedule IV Drug) (Prior Auth: Rx Ref#:[id number]) Oral for 30 Active Social History Tobacco Use: Social History Observation Description Date Details (start date - stop date) Former Smoker NA - NA Tobacco Use/Smoking Question Answer Notes Are you a: former smoker Additional Findings: Tobacco Non-User Current no n-smoker Alcohol Screen Question Answer Notes Did you have a drink containing alcohol in the p ast year? No Points 0 Interpretation Negative Tobacco use other than smoking: Question Answer Notes Are you an other tobacco user? No Problems Problem Type SNOMED Code ICD Code Onset Dates Problem Status W/U Status Risk Notes Problem Plantar wart (21641677) Plantar wart (B07.0) Active confirmed Vital Signs Height 5ft 2in in 04/25/2023 Weight 133 lbs 04/25/2023 BMI 24.32 kg/m2 04/25/2023 Procedures Procedure Date Ordered Date Performed Result Body Sit e 38525-Bpqt Destruction, 1-04/25/2023 N/A Encounters Encounter Location Date Provider Diagnosis [facility] [place] [address] [place] [address] 04/25/2023 Lidia Black Tinea unguium B35.1 ; Plantar wart B07.0 ; Pain in right toe(s) M79.674 and Pain in left toe(s) M79.675 Assessments Encounter Date Diagnosis (ICD Code) Assessment Notes Treatment Notes Treatment Clinical Notes Section Notes 04/25/2023 Tinea unguium (ICD-10 - B35.1) Response to treatment - Improvement 04/25/2023 Plantar wart (ICD-10 - B07.0) 04/25/2023 Pain in right toe(s) (ICD-10 - M79.674) 04/25/2023 Pain in left toe(s) (ICD-10 - M79.675) Plan Of Treatment Pending Test Test Name Order Date 32799-Dsua Destruction, 02-2404/25/2023 Next Appt Details Follow Up: prn, Reason: Procedure Notes * Category Sub-Category Detail Notes Wart Treatment Procedure Verrucae were de brided to pin-point bleeding margins with sterile 15 surgical blade, silver nitrate chemocautery applied, recomm. immune-boosting meds such as zinc, recomm. follow up with topical chemosurgical agents, Pt defers any other forms of tx (83565) Progress Notes * Caryn BAI ADOB: [birth year] (63 yo F)Acc No.[id number]:04/25/2023 Progress Note Patient:?Caryn Bai Provider:?Lidia Lynn DPM :1960???Age:63 Y???Sex:Female D ate:04/25/2023 Address:[address] [place], [place] [id number] Pcp:Anna Rehman Subjective: * Chief Complaints: * ??? Painful nail(s) aggrevat ed by shoes and causing difficulty standing/walking.Wart(s) * HPI: ???Painful Nails:?Pt States Last PCP Visit:?Date:?03/08/2023 ?Course:?improved.?Treatments:?Lamisil , Pulse Dose PO Antifungal Treatment , denies any adverse side effects to medication , (i.e. rash, hives, taste/GI disturbance, yellow skin/eye discoloration, discolored stools, or any other unusual bodily complaints)? Pt has finished oral medication.?Skin problems:?Pt States PCP Visit: ?DATE?03/08/2023 * Medical History:? * Surgical History:?spinal fus ion L4-L5, L5-S1 - Dr Parish Gordonelbow sx - R Olecranon fx finger surgery L ring finger- Dr Dial at [facility] 07/2012hernia 06/2020 * Hospitalization/Major Diagno stic Procedure:?[facility] [place]- RSV- 2 day stay 04/2019[place]: Seizure- MRI and brain scan and blood work 04/08/2021[facility] [place]- abnormal EKG 6 days test done stress realted 2021[facility] [place]- Verbal issues with brother- put in a behavior health unit- sodium levels are off, blood pressure 01/04/23-02/19/23 * Family History:?Mother: dece ased, poor circulation, foot problems, diagnosed with Unspecified essential hypertension, Unspecified heart disease.?Father: , poor circulation, diagnosed with Diabetic - NIDDM.?Siblings: brother, diagnosed with Diabetic - NIDDM, Unspecified essential hypertension.?Maternal uncle: diagnosed with Unspecified cerebral artery occlusion with cerebral infarction, Other malignant neoplasm of unspecified site.? * Social History:?Tobacco Use:?Tobacco Use/Smoking?Are you a:?former smoker ?Additional Findings: Tobacco Non-User?Current non-smoker ?Tobacco use other than smoking?Are you an other tobacco user??No ???Drugs/Alcohol:?Drugs?Have you used drugs other than those for medical reasons in the past 12 months??No ?Alcohol Screen?Did you have a drink containing alcohol in the past year??No ?Points?0 ?Interpretation?Negative ???Miscellaneous:?Caffeine: yes, frequency:, 2-3 cups per day. ?Children: yes, 3. ?Exercise: yes, walking. ?Marital status: . ?Occupation: disabled. * Medications:?TakingTerbinafi ne HCl 250 MG Tablet 1 tablet Orally Once a day fro 7 days then stop for 3 weeks repeat cycleCarvedilol Melatonin OLANZapine 15 MG Tablet 1 tablet Orally Once a dayVitamin B1 Benztropine Mesylate 0.5 MG Tablet Oral Haloperidol 5 MG Tablet Oral lamoTRIgine 25 MG Tablet Oral Haloperidol Decanoate 50 MG/ML Solution Intramuscular cloNIDine HCl 0.1 MG Tablet TAKE 1 TABLET BY MOUTH TWICE DAILY NEEDED Oral clonazePAM 2 MG Tablet (Schedule IV Drug) (Prior Auth: Rx Ref#:[id number]) Oral Taking Terbinafine HCl 250 MG Tablet 1 tablet Orally Once a day fro 7 days then stop for 3 weeks repeat cycleTaking Carvedilol Taking Melatonin Taking OLANZapine 15 MG Tablet 1 tablet Orally Once a dayTaking Vitamin B1 Taking Benztropine Mesylate 0.5 MG Tablet Oral Taking Haloperidol 5 MG Tablet Oral Taking lamoTRIgine 25 MG Tablet Oral Taking Haloperidol Decanoate 50 MG/ML Solution Intramuscular Taking cloNIDine HCl 0.1 MG Tablet TAKE 1 TABLET BY MOUTH TWICE DAILY NEEDED Oral Taking clonazePAM 2 MG Tablet (Schedule IV Drug) (Prior Auth: Rx Ref#:[id number]) Oral Not-Taking/PRNLisinopril 20 MG Tablet 1 tablet Orally Once a dayMetoprolol Succinate Glucosamine Garlic Mirtazapine Ciclopirox Olamine 0.77 % Cream 1 application Externally Twice a dayLisinopril 20 MG Tablet (Prior Auth: Rx Ref#:[id number]) Oral Multivitamin Adult - Tablet as directed Orally Terbinafine HCl 250 MG Tablet 1 tablet Orally Once a day for 7 days stop for 3 weeks repeat cyclerisperiDONE 1 MG Tablet (Prior Auth: Rx Ref#:[id number]) Oral Sertraline HCl 100 MG Tablet (Prior Auth: Rx Ref#:[id number]) Oral Ciclopirox Olamine 0.77 % Cream 1 application Externally Twice a dayMetoprolol Succinate ER 50 MG Tablet Extended Release 24 Hour (Prior Auth: Rx Ref#:[id number]) Oral hydrOXYzine Pamoate 25 MG Capsule (Prior Auth: Rx Ref#:[id number]) Oral Medication List reviewed and reconciled with the patientNot-Taking/PRN Lisinopril 20 MG Tablet 1 tablet Orally Once a dayNot-Taking/PRN Metoprolol Succinate Not-Taking/PRN Glucosamine Not-Taking/PRN Garlic Not-Taking/PRN Mirtazapine Not-Taking/PRN Ciclopirox Olamine 0.77 % Cream 1 application Externally Twice a dayNot-Taking/PRN Lisinopril 20 MG Tablet (Prior Auth: Rx Ref#:[id number]) Oral Not-Taking/PRN Multivitamin Adult - Tablet as directed Orally Not-Taking/PRN Terbinafine HCl 250 MG Tablet 1 tablet Orally Once a day for 7 days stop for 3 weeks repeat cycleNot-Taking/PRN risperiDONE 1 MG Tablet (Prior Auth: Rx Ref#:[id number]) Oral Not-Taking/PRN Sertraline HCl 100 MG Tablet (Prior Auth: Rx Ref#:[id number]) Oral Not-Taking/PRN Ciclopirox Olamine 0.77 % Cream 1 application Externally Twice a dayNot-Taking/PRN Metoprolol Succinate ER 50 MG Tablet Extended Release 24 Hour (Prior Auth: Rx Ref#:[id number]) Oral Not-Taking/PRN hydrOXYzine Pamoate 25 MG Capsule (Prior Auth: Rx Ref#:[id number]) Oral Medication List reviewed and reconciled with the patient * Allergies:?OLANZapine: dizzi ness, blurred vision, tired - Allergyyes[Allergies Verified] Objective: * Vitals:?Ht: 5ft 2in, Wt:133, BMI:24.32, Shoe size: 8-9, Ht-cm: 157.48 cm, Wt-k.33 kg. * Examination: ???General Examination: ?GENERAL APPEARANCE:?Reveals a pleasant, alert, well nourished, well developed, well hydrated individual, who demonstrates proper attention to hygene/body habitus, and is in no acute distress.?ORIENTED:?person, place, and time.?Nails: ?NAILS are:?elongated,overgrown,dystrophic,greater than 3mm thick,discolored and friable with crumbly malodorous subungual debris, with pain on palpation, 1-5 Left foot, 2-5 Right foot, proximal clearing of nail 90%.?Neurological: ?SENSORY:? Neurological exam reveals intact sensorium, pain sensation normal, vibration sensation intact, pinprick sensation is normal in the lower extremities, Pt denies, anesthesia, burning, paresthesia, tingling, B/L.?Vascular: ?DP PULSES:? 2/4, B/L.?PT PULSES:? 2/4, B/L.?Ophthalmology Referral: ?DIABETES EYE EXAM?Dermatologic: ?VERRUCA:?Reveals a Single , multi-loculated , mosaic-patterned, round, raised, flat-topped, petechial bleeding papule(s), with cauliflower appearance and interruption of skin lines, pain to lateral compression, and size estimated at 2 mm diameter plantar 1st Right.? Assessment: * Assessment: 1.?Tinea unguium - B35.1, Re sponse to treatment - Improvement?2.?Plantar wart - B07.0 (Primary)?3.?Pain in right toe(s) - M79.674?4.?Pain in left toe(s) - M79.675? Plan: * Treatment: * Procedures:?Wart Treatment:?Procedure?Verrucae were debrided to pin-point bleeding margins with sterile 15 surgical blade, silver nitrate chemocautery applied, recomm. immune-boosting meds such as zinc, recomm. follow up with topical chemosurgical agents, Pt defers any other forms of tx (31457).? * Procedure Codes:?84999 Wart Destruction, 1-14, Modifiers: XS * Preventive Medicine:? ??Counseling:?Discussion:?-12: Office or other outpatient visit for the evaluation and management of an established patient, which required a medically appropriate history and/or examination and STRAIGHTFORWARD level of MEDICAL DECISION MAKING, 1 SELF-LIMITED OR MINOR PROBLEM, MINIMAL- NO AMOUNT/COMPLEXITY OF DATA TO BE REVIEWED/ANALYZED, AND MINIMAL RISK OF COMPLICATION/MORBIDITY. The visit on the day of the encounter encompassed interpreting the data and educating the patient as to the nature of their condition, treatment options available according to their individual PMH, meds, allergies, and overall health/living conditions, as well as any potential risks or complications that may occur from a failure to adhere to, and participate in, the recommended course of therapy. The discussion included a complete verbal, and/or written explanation of the examination results, any x-rays taken, the proposed diagnosis, and outline of the treatment plan. A schedule for future care needs was also explained. The patient verbalized an understanding of the instructions at this time and agreed to be an active participant in their treatment. If the patient should think of any questions or concerns after the visit, I have encouraged the patient to call the office, Patients podiatric issue has improved, they should call the office with any future issues or concerns.? * Follow Up:?prn * Images: * Sign off status: Completed true * Provider:?Lidia Lynn DPM Date:?2023 Generated for Atif castellanos/Mare/Fercho on:?03/31/2024 09:07 AM EST History and Physical Notes * HPI (History of Present Illness) Category Sub-Category Detail Notes Category Not es Painful Nails Course: improved Treatments: Lamisil , Pulse Dose PO Antifungal Treatment , denies any adverse side effects to medication , (i.e. rash, hives, taste/GI disturbance, yellow skin/eye discoloration, discolored stools, or any other unusual bodily complaints) Pt has finished oral medication Pt States Last PCP Visit: Date:: 03/08/2023 Skin problems Pt States PCP Visit: DATE: 03/08/2023 Examination Category Sub-Category Detail Notes Category Not es Ingrown Nail INSPECTION: Neurological SENSORY: Neurological exa m reveals intact sensorium, pain sensation normal, vibration sensation intact, pinprick sensation is normal in the lower extremities, Pt denies, anesthesia, burning, paresthesia, tingling, B/L Dermatologic SKIN FINDINGS: VERRUCA: Reveals a Single , m ulti-loculated , mosaic-patterned, round, raised, flat-topped, petechial bleeding papule(s), with cauliflower appearance and interruption of skin lines, pain to lateral compression, and size estimated at 2 mm diameter plantar 1st Right General Examination GENERAL APPEARANCE: Reveals a pleasant, alert, well nourished, well developed, well hydrated individual, who demonstrates proper attention to hygene/body habitus, and is in no acute distress ORIENTED: person, place, and t kamran Ophthalmology Referral DIABETES EYE EXAM Diabetic Retinopa thy Screening:: Yes Findings of Diabetic Eye Exam:: no retin opathy Vascular DP PULSES (B): 2/4, B/L PT PULSES (B): 2/4, B/L Nails NAILS are: elongated,overgr own,dystrophic,greater than 3mm thick,discolored and friable with crumbly malodorous subungual debris, with pain on palpation, 1-5 Left foot, 2-5 Right foot, proximal clearing of nail 90%
--- OUTSIDE RECORDS SUMMARY | 2024-03-31 09:08 | XMS_ITS | Clinical Summary ---
Author Organization Unknown Care Team Providers Care Care Services Manager Name Role Phone SHANNAN SMALLS, NOEMI PANTOJA Unavailable Unavaila malik JUNIOR RN, HALEY Rodriguez Unavailable Payers Payer Name Policy Type Policy Number Effective Date Expira tion Date [facility] [id number] MEDICAID [facility] [id number] MEDICARE - [facility] [id number] Problems Condition Name Condition Details Condition Category [...] 03-04 00:00: 00 04-28 23:59 :00 No [id number] Per instruc tions EVERY Per instructio ns EVERY (route: oral) Med Classific ation: Cardiovas cular Therapy Agents melatonin 3 mg tablet 04-28 00:00: 00 02-11 23:59 :00 No [id number] 1 tablet BEDTIME 1 tablet BEDTIME (route: oral) Med Classific ation: Central Nervous System Agents metoprolol succinate ER 50 mg tablet,exte nded release 24 hr 04-28 00:00: 00 02-11 23:59 :00 No [id number] 1 tablet DAILY 1 tablet DAILY (route: oral) Med Classific ation: Cardiovas cular Therapy Agents thiamine HCl (vitamin B1) 100 mg tablet 04-28 00:00: 00 02-11 23:59 :00 No [id number] 1 tablet DAILY 1 tablet DAILY (route: oral) Med Classific ation: Electroly te Balance-N utritiona l Products Seroquel 25 mg tablet 08 00:00: 00 06-26 23:59 :00 No [id number] 1-2 tablet 2 TIMES DAILY 1-2 tablet 2 TIMES DAILY (route: oral) Med Classific ation: Central Nervous System Agents lisinopril 20 mg tablet 06-28 00:00: 00 02-11 23:59 :00 No [id number] 1 tablet EVERY AM 1 tablet EVERY AM (route: oral) Med Classific ation: Cardiovas cular Therapy Agents olanzapine 15 mg tablet 06-28 00:00: 00 02-11 23:59 :00 No [id number] 1 tablet BEDTIME 1 tablet BEDTIME (route: oral) Med Classific ation: Central Nervous System Agents trazodone 100 mg tablet 06-28 00:00: 00 02-11 23:59 :00 No [id number] Per instruc tions BEDTIME Per instructio ns BEDTIME (route: oral) Med Classific ation: Central Nervous System Agents amlodipine 5 mg tablet 02-20 00:00: 00 04-16 23:59 :00 No [id number] 5 mg EVERY AM 5 mg EVERY AM (route: oral) Med Classific ation: Cardiovas cular Therapy Agents benztropine 0.5 mg tablet 02-20 00:00: 00 Yes [id number] 0.5 mg BEDTIME 0.5 mg BEDTIME (route: oral) Med Classific ation: Central Nervous System Agents carvedilol 6.25 mg tablet 02-20 00:00: 00 02-21 23:59 :00 No [id number] 6.25 mg EVERY AM 6.25 mg EVERY AM (route: oral) Med Classific ation: Cardiovas cular Therapy Agents clonidine HCl 0.1 mg tablet 02-20 00:00: 00 Yes [id number] 0.1 mg NEEDED 0.1 mg NEEDED (route: oral) Med Classific ation: Cardiovas cular Therapy Agents haloperidol 5 mg tablet 02-20 00:00: 00 Yes [id number] 5 mg EVERY AM 5 mg EVER Y AM (route: oral) Med Classific ation: Central Nervous System Agents lamotrigine 25 mg tablet - 00:00: 00 05-07 23:59 :00 No [id number] 25 mg BEDTIME 25 mg BEDTIME (route: oral) Med Classific ation: Central Nervous System Agents melatonin 3 mg tablet - 00:00: 00 Yes [id number] 3 mg BEDTIME 3 mg BEDTIME (route: oral) Med Classific ation: Central Nervous System Agents multivitami n tablet - 00:00: 00 Yes [id number] 1 tablet EVERY AM 1 tablet EVERY AM (route: oral) Med Classific ation: Electroly te Balance-N utritiona l Products zolpidem 10 mg tablet 02-20 00:00: 00 Yes [id number] 10 mg BEDTIME 10 mg BEDTIME (route: oral) Med Classific ation: Central Nervous System Agents carvedilol 6.25 mg tablet - 00:00: 00 Yes [id number] 6.25 tablet 2 TIMES DAILY 6.25 tablet 2 TIMES DAILY (route: oral) Med Classific ation: Cardiovas cular Therapy Agents Haldol Decanoate 50 mg/mL intramuscul ar solution 2-05 00:00: 00 Yes [id number] 1 mL MONTHLY 1 mL MONTHLY (route: intramuscu lar) Med Classific ation: Central Nervous System Agents amitriptyli ne 10 mg tablet 05-07 00:00: 00 Yes [id number] 1 tablet BEDTIME 1 tablet BEDTIME (route: oral) Med Classific ation: Central Nervous System Agents Lamictal 100 mg tablet 05-07 00:00: 00 Yes [id number] 1 tablet BEDTIME 1 tablet BEDTIME (route: oral) Med Classific ation: Central Nervous System Agents clonazepam 2 mg tablet 4-29 00:00: 00 Yes [id number] 0.5 tablet 2 TIMES DAILY 0.5 tablet 2 TIMES DAILY (route: oral) Med Classific ation: Central Nervous System Agents amoxicillin 500 mg tablet 02-27 00:00: 00 03-06 23:59 :00 No [id number] 1 tablet 3 TIMES DAILY 1 tablet 3 TIMES DAILY (route: oral) Med Classific ation: Anti-Infe ctive Agents chlorhexidi ne gluconate 0.12 % mouthwash 02-27 00:00: 00 Yes [id number] 15 mL DAILY 15 mL DAILY (route: mucous membrane) Med Classific ation: Mouth-Thr oat-Denta l - Preparati ons IBU 600 mg tablet 02-27 00:00: 00 03-06 23:59 :00 No [id number] 1 tablet 4 TIMES DAILY 1 tablet 4 TIMES DAILY (route: oral) Med Classific ation: Analgesic , Anti-infl ammatory or Antipyret ic oxycodone-a cetaminophe n 5 mg-325 mg tablet 02-27 00:00: 00 Yes [id number] 1 tablet EVERY 6 HOURS 1 tablet [...] AWARENESS FOR SAFETY AND WILL NOTIFY CLINICAL SENIOR CYBER INTELLIGENCE ANALYST AND PHYSICIAN/PROVIDER WITH ANY CHANGE IN CONDITION. [code = SKILLED NURSE WILL MAINTAIN SITUATIONAL AWARENESS FOR SAFETY AND WILL NOTIFY CLINICAL SENIOR CYBER INTELLIGENCE ANALYST AND PHYSICIAN/PROVIDER WITH ANY CHANGE IN CONDITION.] [...] CARE WILL BE ESTABLISHED THAT MEETS PATIENT'S HALFWAY NEEDS AND INCLUDES PATIENT GOAL FOR HOME [...] End Date/Time Encounter Type Admission Type Attending [facility] Care Department Encounter ID Discharge Date Discharge Status Discharge Condition Discharge Reason Percent Goals Met 2023-02-20 00:00:00 2024-04-14 00:00:00 Outpatient RECERTIFIC HALEY [facility] [id number] 42.86
--- OUTSIDE RECORDS SUMMARY | 2024-03-31 09:08 | XMS_ITS | Clinical Summary ---
Author Organization [facility] Address [address] [facility] [address] [place] [address] Phone Care Team Providers Care Certified Nursing Attendant Name Role Phone Jenniffer Cervantes MD Primary Care Provider [phone] Allergies No known active allergies Medications thiamine (,VITAMIN B-1,) 100 MG tablet Take 100 mg by mouth 1 (one) time each day 04/28/2021 Active mirtazapine (REMERON) 7.5 MG tablet Take 7.5 mg by mouth at bed time 05/04/2021 Active melatonin 3 MG tablet Take 6 mg by mouth every night 05/10/2021 Active carvedilol (COREG) 12.5 MG tablet Take 6.25 mg by mouth in the morning and 6.25 mg in the evening. 05/16/2022 Active OLANZapine (ZyPREXA) 2.5 MG tablet Take 2.5 mg by mouth 1 (one) time each day in the morning 08/20/2022 Active OLANZapine (ZyPREXA) 10 MG tablet Take 10 mg by mouth every night 08/20/2022 Active zolpidem (Ambien) 5 MG tablet Take 5 mg by mouth every night 05/04/2022 Active melatonin 3 MG tablet Take 9 mg by mouth 05/04/2022 Active Active Problems Problem Noted Date Diagnosed Date Hypertension 08/23/2023 Bipolar disorder 08/23/2023 Hyposmolality and/or hyponatremia 05/11/2021 Immunizations Name Administration Dates Next Due Influenza (IM) Preservative Free 10/12/2020 Family History Medical History Relation Comments Diabetes Brother Hypertension Brother Dementia Father Diabetes Father Hypertension Father Autoimmune disease Mother Heart disease Mother Relation Status Comments Brother Alive Father Mother Social History Tobacco Use Types Packs/Day Years Used Date Smoking Tobacco: Former Smokeless Tobacco: Former Alcohol Use Standard Drinks/Week Comments No 0 (1 standard drink = 0.6 oz pur e alcohol) Comments Unknown Sex and Gender Information Value Date Recorded Sex Assigned at Not on file Legal Sex Female 5:07 PM EST Gender Identity Not on file Sexual Orientation Not on file Last Filed Vital Signs Vital Sign Reading Time Taken Comments Blood Pressure 134/82 08/23/2022 8:18 AM EDT Pulse 62 08/23/2022 8:18 AM EDT Temperature - - Respiratory Rate - - Oxygen Saturation 97% 08/23/2022 8:18 AM EDT Inhaled Oxygen Concentration - - Weight 65.7 kg (144 lb 12.8 oz) 08/23/2022 8:18 AM EDT Height 154.9 cm (5' 1 ) 08/23/2022 8:18 AM EDT Body Mass Index 27.36 08/23/2022 8:18 AM EDT Plan of Treatment Upcoming Encounters Date Type Department Care Team (Late st Contact Info) Description 04/21/2024 9:20 AM EDT Office Visit [facility] [address] [address] Samuel Espinal MD [address] [phone] Health Maintenance Due Date Last Done Comments Breast Cancer Screening 1960 Colorectal Cancer Screening: Annual FOBT 2010 Colorectal Cancer Screening: Colonoscopy 2010 Colorectal Cancer Screening: Sigmoidoscopy 2010 Pneumococcal Vaccine: Pediat rics (0 to 5 Years) and At-Risk Patients (6 to 64 Years) (2 of 2 - PCV) 05/11/2015 05/10/2014 Influenza Vaccine (#1) 2023 10/12/2020 Hepatitis B Vaccine Aged Out No longe r eligible based on patient's age to complete this topic Insurance [facility] ([id number]) [facility] ([id number]) Care Teams Certified Nursing Attendant Relationship Specialty Start Date End Date Jenniffer Cervantes MD 1960 [place] [address] PCP - General Internal Medicine 05/16/21
== END 2024-03-31 09:52 | disposition home or self-care (01) ==
LOC: HO.HWS 08:40
PROVIDERS: PCP Internal Medicine; Visit Provider Advanced Practice Midwife
DX: Z01.419 Encounter for gynecological examination (general) (routine) without abnormal findings (principal)
CPT/HCPCS: 99396; 99459

== ENCOUNTER → 2024-03-31 08:40 | Outpatient (BNVA) | payer OTHER, SELFPAY | PROVIDERS: PCP Internal Medicine; Visit Provider Advanced Practice Midwife | DX: Z01.419 Encounter for gynecological examination (general) (routine) without abnormal findings (principal) | CPT/HCPCS: 99396; 99459 ==

== ENCOUNTER 2024-04-09 11:35 | Outpatient (AMB) | payer OTHER, SELFPAY ==
[2024-04-09 11:44] VITALS: BP 146/80; PULSE 64; RESP 15; TEMP 36.5; O2SAT 96; BMI 25.1
--- NOTE | 2024-04-09 11:44 | A.OFFPC_ITS ---
Vital Signs 04/09/24 11:44 04/09/24 12:18 Height 5 ft 1 in Weight 133 lb BMI 25.1 BP 146/80 H 130/80 Blood Pressure Location Lt brachial Lt brachial Position Sitting Sitting Respiration 15 Pulse 64 Pulse Source Pulse Oximeter Temp 97.7 F Temp Source Oral Pulse Oximetry (%) 96 Oxygen Delivery Method Room Air Intake Visit Reasons: Hypertension Intake Note: Pt is here today to f/u HTN Allergies olanzapine Adverse Reaction (Severe, Verified 04/09/24 12:13) visual changes carbamazepine [From Tegretol] Adverse Reaction (Intermediate, Verified 04/09/24 12:13) Hyponatremia divalproex sodium [From Depakote] Adverse Reaction (Mild, Verified 04/09/24 12:13) hyperammonemia Medication List - Last Reconciled 04/09/24 by Suzanna Cervantes MD amitriptyline 10 mg PO BEDTIME amlodipine 5 mg PO DAILY benztropine 0.5 mg PO BEDTIME carvedilol 18.75 mg See Protocol PO BID 30 days clonazepam (Klonopin) 1 mg PO BID clonidine HCl 0.1 mg See Protocol PO BID PRN haloperidol 5 mg PO DAILY haloperidol decanoate (Haldol Decanoate) 50 mg IM Q4W lamotrigine (Lamictal) 75 mg (3 x 25 mg) PO DAILY 14 days melatonin 10 mg PO BEDTIME multivitamin (Daily-Ni tablet) 1 tab PO DAILY zolpidem (Ambien) 10 mg PO BEDTIME Tobacco use date assessed: 04/09/24 Dental Screening Dental Screen Date: 04/09/24 Did you have a dental visit in the last 12 months?: Yes Did you have a dental problem in the last 6 months where you did not have access to dental care?: Yes Was dental information given to patient?: Patient has dentist HPI Hypertension HPI Details 64-year-old ladyyear-old lady with histo ry of bipolar disorder type 1, hypertension, hyperlipidemia. impaired fasting glucose , here today for follow- up on her hypertension. Currently taking amlodipine 5 mg daily and carvedilol 18.75 mg b.i.d., and has clonidine 0.1 mg tab, taken as needed for blood pressure above 130/90. She has been checking her blood pressure at home with her own blood pressure monitor, which is fairly accurate when checked with our own machine, and blood pressure has been very labile, fluctuating from between 90/60 to a high of 140/85. She has been compliant with taking her medications, knows when to take her clonidine when her blood pressure goes up, and has been trying to follow recommended diet. She does have an appointment to see her dermatologist and dermatopathologist next month for follow-up on her hypertension. Denies any headaches, no chest pain or palpitations, no shortness of breath. [facility] Medical History (Updated 04/09/24 @ 13:20 by Suzanna Cervantes MD) Labile hypertension Leiomyoma PTSD (post-traumatic stress disorder) Bipolar I disorder Tinea unguium History of psychogenic nonepileptic seizure Impaired fasting glucose Dyslipidemia (high LDL; low HDL) Hx of suicide attempt On beta baldemar at home Arthritis Anxiety Diastasis recti Umbilical hernia Compression fracture of L1 lumbar vertebra Dupuytren's contracture of left hand Lumbar disc herniation Essential hypertension Ventral hernia Urinary incontinence Surgical History H/O shoulder surgery Hx of elbow surgery Hx of repair of left rotator cuff Hx of colonoscopy History of lumbar fusion Family History Father Diabetes mellitus Mother COPD (chronic obstructive pulmonary disease) Sister Diabetes mellitus Glaucoma Other Mental health disorder Substance use disorder Social History Household Members: Other Household Members Other:: brother Housing: House Are you a primary elderly caregiver to a significant other at home: No Do you presently have visiting nurse or other home services: No Unable to assess alcohol history related to: Unknown Alcohol intake: current Alcohol intake frequency: holidays/special occasions only Patient Tobacco Use Status: Former Tobacco user Tobacco use type: Cigarette Cigarette Packs Per Day: 1 Cigarettes Per Day: 20.0 e-Cigarette/Vaping Use: Never Used Second Hand Smoke Exposure: No Substance Use Type: Marijuana Advance Directives Date on File: 11/26/22 service: No Current occupational status: disabled Sexual orientation: Straight/Heterosexual Cognitive needs: No Hearing needs: No Vision needs: No Questionnaire PHQ-9 Over the last 2 weeks, how often have you been bothered by any of the following problems? 1. Little interest or pleasure in doing things: several days 2. Feeling down, depressed, or hopeless: several days 3. Trouble falling or staying asleep, or sleeping too much: several days 4. Feeling tired or having little energy: not at all 5. Poor appetite or overeating: not at all 6. Feeling bad about yourself - or that you are a failure or have let yourself or your family down: not at all 7. Trouble concentrating on things, such as reading the newspaper or watching television: not at all 8. Moving or speaking so slowly that other people could have noticed. Or the opposite - being so fidgety or restless that you have been moving around a lot more than usual: not at all 9. Thoughts that you would be better off or of hurting yourself in some way: not at all Total score: 3 Depression Screening Interpretation: Positive (Currently followed by psychiatry, Yesika Mendez NP) Depression Screening Follow-up: Existing condition, In treatment and Community Mental Health Worker F/U Depression Screening Done: Yes 66724 - PHQ-9 Billing: Yes Source: Developed by Drs. Cirilo Chang, Amisha Norman, Rajan Montelongo and colleagues, with an educational krista from [email or web address]. Thrive Questionnaire Date Thrive assessed: 04/09/24 I am a: Patient What is your living situation today?: I have a place to live, but I am worried about losing it in the future Within the past 12 months, did the food you bought not last and you didn't have the money to get more?: Never true Within the past 12 months, did you worry whether your food would run out before you got money to buy more?: Never true Do you have trouble paying for medicines?: No Do you have trouble getting transportation to medical appointments?: No Do you have trouble paying your heating and electricity bill?: No Do you have trouble taking care of your child, family member or friend?: No Do you have trouble with day-to-day activities such as bathing, preparing meals, shopping, managing finances, etc.?: No Are you currently unemployed and looking for a job?: No Are you interested in more education?: Yes Please select the resources that you would like help with: Housing/[facility] THRIVE Score: 1 AUDIT C Alcohol Use Questionnaire (AUDIT-C) 1. How often do you have a drink containing alcohol?: Never Total Score: 0 DANNIE-7 AMB Questionnaire DANNIE-7 Date DANNIE - 7 assessed: 04/09/24 Feeling nervous, anxious, or on edge: 1 = Several days Not being able to stop or control worryin = Several days Worrying too much about different things: 1 = Several days Trouble relaxin = Not at all Being so restless that it is hard to sit still: 0 = Not at all Becoming easily annoyed or irritable: 0 = Not at all Feeling afraid as if something awful might happen: 0 = Not at all Total DANNIE-7 score (0-4 normal; 5-9 mild; 10-14 moderate; 15-21 severe): 3 Source: Developed by Drs. Cirilo Chang, Amisha Norman, Rajan Montelongo and colleagues, with an educational krista from [email or web address]. DANNIE-7 Assessment Billing DANNIE-7 Assessment Tool: DANNIE-7 Assessment 23591 Review of Systems Const Reports no additional complaints Eyes Reports no additional complaints ENT Reports no additional complaints and Reports as per HPI Card Reports no additional complaints Resp Reports no additional complaints GI Reports no additional complaints Reports no additional complaints Musc Reports no additional complaints Neuro Reports no additional complaints Psych Reports no additional complaints and Denies anxiety Endo Reports no additional complaints Dayo/Lymph Reports no additional complaints Aller/Immun Reports no additional complaints Physical exam (Primary Care) Vital Signs: Last Vital Signs Temp 97.7 F 04/09/24 11:44 Pulse 64 04/09/24 11:44 Resp 15 04/09/24 11:44 BP 130/80 04/09/24 12:18 Pulse Ox 96 04/09/24 11:44 Oxygen Delivery Method Room Air 04/09/24 11:44 BMI result Body Mass Index 25.1 Tobacco/Smoking Status: Tobacco use Status Tobacco use date assessed 04/09/24 04/09/24 11:56 Patient Tobacco Use Status Former Tobacco user 04/09/24 11:51 Tobacco use type Cigarette 04/09/24 11:51 e-Cigarette/Vaping Use Never Used 04/09/24 11:51 PHQ-9: PHQ-9 Score PHQ-9: Total score 3 04/09/24 13:15 Depression Screening Interpretation: Positive (Currently followed by psychiatry, Yesika Mendez NP) Depression Screening Follow-up: Existing condition, In treatment and Community Mental Health Worker F/U Thrive Assessment: Date of Thrive Assessment Date Thrive assessed 04/09/24 04/09/24 11:56 Const Other: Alert oriented x3, no acute distress noted, ambulatory with normal gait Orientation/consciousness: patient oriented x3 HENMT Mouth: moist mucous membranes and other Eyes General: appearance normal, both eyes and all related structures Neck Neck: Yes full ROM, Yes no lymphadenopathy and Yes supple Resp Auscultation: clear to auscultation bilaterally Cardio Other: S1 and S2 present regular rate and rhythm GI Palpation (GI): Soft to palpation, nontender and no guarding Auscultation: normal bowel sounds General: Yes Bimanual renal exam normal bilaterally Back/Spine/Pelvis Back: No back tenderness Skin General skin exam: no rashes or lesions noted Neuro General: patient oriented x3, gait normal, tone normal, moves all extremities, no focal motor deficits and CN's II-XI intact bilaterally Extrem General: Yes full ROM, Yes no joint enlargement, Yes no pedal edema and Yes normal gait Psych Appearance: grossly normal and well kempt Mental Status: mental status grossly normal Speech and movement: Normal speech and movement present Affect: normal affect Attitude: cooperative Thought process: Normal thought process present Coding Level of Care Code Est Pt Level 3 (61809) Diagnoses Labile hypertension R09.89 Additional Codes PHQ-9 - 13159 - PHQ-9 Billing: Yes ([id number]) DANNIE-7 Assessment Billing - DANNIE-7 Assessment Tool: DANNIE-7 Assessment 43607 ([id number]) Assessment & Plan Assessment & Plan (1) Labile hypertension: Code(s): R09.89 - Other specified symptoms and signs involving the circulatory and respiratory systems Category: Medical Plan: Continue with carvedilol same dose as well as amlodipine at the same dose. Takes clonidine only as needed. Has an appointment with Dr. Hinkle next month for follow-up regarding labile hypertension
[2024-04-09 12:18] VITALS: BP 130/80
--- OUTSIDE RECORDS SUMMARY | 2024-04-09 14:05 | XMS_ITS ---
Author Organization [facility] Address [address] [place] [address] Care Team Providers Care Certified Appliance Service Technician Name Role Phone Billy SMALLS, Suzanna Romeo Primary Care Provider Un available BlackLidia Unavailable [phone] REASON FOR VISIT cx appt 12/17 Encounters Encounter Location Date Provider Diagnosis [facility] [address] [place] [address] 12/17/2022 Lidia Lynn Plan Of Treatment No Information Progress Notes * Caryn BAI ADOB: 2 (62 yo F)Acc No.[id number]:12/17/2022 Patient:?Caryn Bai :1960???Age:62 Y???Sex:Female Address:[address] [place] [address], [address] * true * Date:? Generated for Atif castellanos/Mare/eTransmitting on:?04/09/2024 02:05 PM EST
--- OUTSIDE RECORDS SUMMARY | 2024-04-09 14:05 | XMS_ITS | Patient Health Record ---
Author Organization [facility] Address [address] [facility] [place] [address] Care Team Providers Care Charge Entry Specialist Name Role Phone Billy SMALLS, Suzanna Romeo Primary Care Provider Un available Lidia Lynn Unavailable [phone] Allergies Allergen (clinical drug ingredient) Drug/Non Drug Allergy documented on EMR Reaction Allergy Type Onset Date Status olanzapine OLANZapine dizziness, blurred vision, tired Drug Allergy Active Reason For Referral No Information Medications Medication SIG (Take, Route, Frequency, Duration) Notes Start Date End Date Status Haloperidol Decanoate 50 MG/ML Intramuscular for 56 Days Active cloNIDine HCl 0.1 MG TAKE 1 TABLET BY [facility] TWICE DAILY NEEDED Oral for 30 Days Active Haloperidol 5 MG Oral for 30 Days Active lamoTRIgine 25 MG Oral for 30 Days Active Vitamin B1 Active Benztropine Mesylate 0.5 MG Oral for 30 Days Active Melatonin Active hydrOXYzine Pamoate 25 MG (Prior Auth: Rx Ref#:[id number]) Oral for 30 Not-Taking OLANZapine 15 MG 1 tablet Orally Once a day for 30 day(s) Active Terbinafine HCl 250 MG 1 tablet Orally O nce a day fro 7 days then stop for 3 weeks repeat cycle for 90 days Active Ciclopirox Olamine 0.77 % 1 application Externally Twice a day for 30 days 04/13/2019 Not-Taki ng Carvedilol Active Metoprolol Succinate ER 50 MG (Prior Auth: Rx Ref#:[id number]) Oral for 30 Not-Taking risperiDONE 1 MG (Prior Auth: Rx Ref#:[id number]) Oral for 30 Not-Taking Sertraline HCl 100 MG (Prior Auth: Rx Ref#:[id number]) Oral for 30 Not-Taking Terbinafine HCl 250 MG 1 tablet Orally O nce a day for 7 days stop for 3 weeks repeat cycle for 90 days 01/18/2021 Not-Taking Lisinopril 20 MG (Prior Auth: Rx Ref#:[id number]) Oral for 90 Not-Taking Multivitamin Adult - as directed Orally Not-Taking Ciclopirox Olamine 0.77 % 1 application Externally Twice a day for 30 days 03/31/2020 Not-Taki ng clonazePAM 2 MG (Schedule IV Drug) (Prior Auth: Rx Ref#:[id number]) Oral for 30 Active Garlic Not-Taking Mirtazapine Not-Taki ng Metoprolol Succinate Not-Taking Glucosamine Not-Taki ng Lisinopril 20 MG 1 tablet Orally Once a day for 30 day(s) Not-Taking Immunizations Vaccine Route Administration Date Status Comme nts COVID-19 Moderna Vaccine Unknown 01/11/2022 Administered 10/2020 Influenza Unknown 10/12/2021 Administered Social History Tobacco Use: Social History Observation [...] W/U Status Risk Notes Problem Plantar wart (50527014) Plantar wart (B07.0) Active confirmed Vital Signs Height 5ft 2in in 04/25/2023 Weight 133 lbs 04/25/2023 BMI 24.32 kg/m2 04/25/2023 Procedures Procedure Date Ordered Date Performed Result Body Sit e 64755-Tiya Destruction, 1-14 04/25/2023 N/A Encounters Encounter Location Date Provider Diagnosis [facility] [address] [place] [address] 04/25/2023 Lidia Black Tinea unguium B35.1 ; [...] Treatment Pending Test Test Name Order Date *Liver Function Test (LFT) 01/12/2021 *Liver Function Test (LFT) 08/07/2021 *Liver Function Test (LFT) 11/13/2021 67108-OEEOBUF NAIL, 6 OR MORE 09/10/2022 05325-BIBKPNW NAIL, 6 OR MORE 05/01/2021 65551-AKPMJPD NAIL, 6 OR MORE 06/30/2020 63626-QRCPKMV NAIL, 6 OR MORE 04/07/2018 97881-AVMYGFV NAIL, 6 OR MORE 07/14/2018 00622-RUDDEAJ NAIL, 6 OR MORE 10/27/2018 53743-GDFXOJN NAIL, 6 OR MORE 04/13/2019 48164-KSYEOVY NAIL, 6 OR MORE 08/24/2019 35632-MMQLMCS NAIL, 6 OR MORE 12/28/2019 90666-SWOFEFY NAIL, 6 OR MORE 03/31/2020 05021-DVAQFDF NAIL, 6 OR MORE 09/29/2020 73338-Rrhs Destruction, 1-14 04/25/2023 74451-Inftxtpi Plate 09/29/2020 56766-Nemcetld Plate 06/30/2020 Insurance Providers Payer Name Payer Address Payer Phone Subscriber Number Group Number Insured Name Patient Relationship to Insured Coverage Start Date Coverage End Date [facility] [employer] Claims [address] [place] [address] [phone] [id number] Caryn Pinto Self - patient is the insured Medical (General) History Medical History History ICD Code Spinal stenosis Herniated disc Hypertension Bipolar disorder Dupytrens contracture Anxiety Back,Hip,and Knee pain Cataracts Depression High blood pressure Lung disease Measles Chicken pox Psychiatric disorder Sciatica Transfusions Surgical History Surgery Date(Month/Year) spinal fusion L4-L5, L5-S1 - Dr Lugo 2 008 elbow sx - R Olecranon fx finger surgery L ring finger- Dr Dial at [facility] 07/2012 hernia 06/2020 Hospitalization History Reason Date(Month/Year) [facility]- Verbal issues with brot her- put in a behavior health unit- sodium levels are off, blood pressure 01/04/23-02/19/23 [facility] [place]- abnormal EKG 6 days test done naa flores realted 2021 [facility]: Seizure- MRI and brain scan and blo od work 04/08/2021 [facility] [place]- RSV- 2 day stay 04/2019
--- OUTSIDE RECORDS SUMMARY | 2024-04-09 14:05 | XMS_ITS ---
Author Organization [facility] Address [address] [place] [address] Care Team Providers Care Fiberglass Roving Winder Name Role Phone Billy SMALLS, Suzanna Romeo Primary Care Provider Un available Lidia Lynn [phone] Encounters Encounter Location Date Provider Diagnosis [address] [address] 12/17/2022 Lidia Lynn Plan Of Treatment No Information Progress Notes * Caryn BAI ADOB: 2 (64 yo F)Acc No.[id number]:12/17/2022 Progress Note Patient:?Caryn BAI Provider:?Lidia Lynn DPM :1960???Age:62 Y???Sex:Female D ate:12/17/2022 Address:[address] [place], [place] [id number] Pcp:Anna Rehman Subjective: * Chief Complaints: * ??? * Medical History:? Objective: * Vitals:? Assessment: Plan: * Treatment: * Images: * The named appointment provid er may or may not be the originator of this progress note, and it is not deemed complete until electronically signed by the appointment provider. Sign off status: Pending * Provider:Paulino Lynn DPM Date:?2022 Generated for Atif castellanos/Mare/eTransmitting on:?04/09/2024 02:05 PM EST
--- OUTSIDE RECORDS SUMMARY | 2024-04-09 14:05 | XMS_ITS | Clinical Summary ---
Author Organization [facility] it Address [address] [place] [address] Care Team Providers Care Top Stitcher Name Role Phone Unavailable Primary Care Provider [...]
--- OUTSIDE RECORDS SUMMARY | 2024-04-09 14:06 | XMS_ITS | Clinical Summary ---
Author Organization [facility] Address [address] [facility] [address] [place] [address] Phone Care Team Providers Care Communication Coordinator Name Role Phone Jenniffer Cervantes MD Primary Care Provider [phone] Allergies No known active allergies Medications thiamine [...] Office Visit [facility] [address] [address] Samuel Espinal MD [address] [id number] Health Maintenance Due Date Last Done Comments [...] patient's age to complete this topic Insurance [facility] ([id number]) [facility] ([id number]) Care Teams Communication Coordinator Relationship Specialty Start Date End Date Jenniffer Cervantes MD [address] [place] [address] PCP - General Internal Medicine 05/16/21
--- OUTSIDE RECORDS SUMMARY | 2024-04-09 14:06 | XMS_ITS ---
[facility] Address [address] [place] [address] Care Team Providers Care Community Health Nursing Director Name Role Phone Billy SMALLS, Suzanna Romeo Primary Care Provider Un available Lidia Lynn Unavailable [phone] Allergies Allergen (clinical drug ingredient) Drug/Non Drug [...] hydrOXYzine Pamoate 25 MG (Prior Auth: Rx Ref#:[id number]) Oral for 30 Not-Taking Terbinafine HCl 250 MG 1 tablet Orally O nce a day fro 7 days then stop for 3 weeks repeat cycle for 90 days Active Ciclopirox Olamine 0.77 % 1 application Externally Twice a day for 30 days 04/13/2019 Not-Taki ng Carvedilol Active Metoprolol Succinate ER 50 MG (Prior Auth: Rx Ref#:[id number]) Oral for 30 Not-Taking risperiDONE 1 MG (Prior Auth: Rx Ref#:[id number]) Oral for 30 Not-Taking Sertraline HCl 100 MG (Prior Auth: Rx Ref#:[id number]) Oral for 30 Not-Taking Terbinafine HCl 250 MG 1 tablet Orally O nce a day for 7 days stop for 3 weeks repeat cycle for 90 days 01/18/2021 Not-Taking Lisinopril 20 MG (Prior Auth: Rx Ref#:[id number]) Oral for 90 Not-Taking Multivitamin Adult - as directed Orally Not-Taking Garlic Not-Taking Mirtazapine Not-Taki ng Glucosamine Not-Taki ng Ciclopirox Olamine 0.77 % 1 application Externally Twice a day for 30 days 03/31/2020 Not-Taki ng clonazePAM 2 MG (Schedule IV Drug) (Prior Auth: Rx Ref#:[id number]) Oral for 30 Active Social History Tobacco [...] W/U Status Risk Notes Problem Plantar wart (60023013) Plantar wart (B07.0) Active confirmed Vital Signs Height 5ft 2in in 04/25/2023 Weight 133 lbs 04/25/2023 BMI 24.32 kg/m2 04/25/2023 Procedures Procedure Date Ordered Date Performed Result Body Sit e 19319-Yhlv Destruction, 1-04/25/2023 N/A Encounters Encounter Location Date Provider Diagnosis [facility] [address] [place] [address] 04/25/2023 Lidia Black Tinea unguium B35.1 ; [...] Treatment Pending Test Test Name Order Date 81103-Ofcw Destruction, 02-2404/25/2023 Next Appt Details Follow Up: prn, Reason: Procedure Notes * Category Sub-Category Detail Notes Wart Treatment Procedure Verrucae were de brided to pin-point bleeding margins with sterile 15 surgical blade, silver nitrate chemocautery applied, recomm. immune-boosting meds such as zinc, recomm. follow up with topical chemosurgical agents, Pt defers any other forms of tx (74571) Progress Notes * Caryn BAI ADOB: [birth year] (63 yo F)Acc No.[id number]:04/25/2023 Progress Note Patient:?Caryn Bai Provider:?Lidia Lynn DPM :1960???Age:63 Y???Sex:Female D ate:04/25/2023 Address:[address] [place], [place] [id number] Pcp:Anna Rehman Subjective: * Chief Complaints: * [...] NEOS 07/2012hernia 06/2020 * Hospitalization/Major Diagno stic Procedure:?[facility]- RSV- 2 day stay 04/2019BM: Seizure- MRI and brain scan and blood work 04/08/2021[facility]- abnormal EKG 6 days test done stress realted 2021[facility]- Verbal issues with brother- put in a [...] Tablet (Schedule IV Drug) (Prior Auth: Rx Ref#:[id number]) Oral Taking Terbinafine HCl 250 MG Tablet [...] Tablet (Schedule IV Drug) (Prior Auth: Rx Ref#:[id number]) Oral Not-Taking/PRNLisinopril 20 MG Tablet 1 tablet Orally Once a dayMetoprolol Succinate Glucosamine Garlic Mirtazapine Ciclopirox Olamine 0.77 % Cream 1 application Externally Twice a dayLisinopril 20 MG Tablet (Prior Auth: Rx Ref#:[id number]) Oral Multivitamin Adult - Tablet as directed Orally Terbinafine HCl 250 MG Tablet 1 tablet Orally Once a day for 7 days stop for 3 weeks repeat cyclerisperiDONE 1 MG Tablet (Prior Auth: Rx Ref#:[id number]) Oral Sertraline HCl 100 MG Tablet (Prior Auth: Rx Ref#:[id number]) Oral Ciclopirox Olamine 0.77 % Cream 1 application Externally Twice a dayMetoprolol Succinate ER 50 MG Tablet Extended Release 24 Hour (Prior Auth: Rx Ref#:[id number]) Oral hydrOXYzine Pamoate 25 MG Capsule (Prior Auth: Rx Ref#:[id number]) Oral Medication List reviewed and reconciled with the patientNot-Taking/PRN Lisinopril 20 MG Tablet 1 tablet Orally Once a dayNot-Taking/PRN Metoprolol Succinate Not-Taking/PRN Glucosamine Not-Taking/PRN Garlic Not-Taking/PRN Mirtazapine Not-Taking/PRN Ciclopirox Olamine 0.77 % Cream 1 application Externally Twice a dayNot-Taking/PRN Lisinopril 20 MG Tablet (Prior Auth: Rx Ref#:[id number]) Oral Not-Taking/PRN Multivitamin Adult - Tablet as directed Orally Not-Taking/PRN Terbinafine HCl 250 MG Tablet 1 tablet Orally Once a day for 7 days stop for 3 weeks repeat cycleNot-Taking/PRN risperiDONE 1 MG Tablet (Prior Auth: Rx Ref#:[id number]) Oral Not-Taking/PRN Sertraline HCl 100 MG Tablet (Prior Auth: Rx Ref#:[id number]) Oral Not-Taking/PRN Ciclopirox Olamine 0.77 % Cream 1 application Externally Twice a dayNot-Taking/PRN Metoprolol Succinate ER 50 MG Tablet Extended Release 24 Hour (Prior Auth: Rx Ref#:[id number]) Oral Not-Taking/PRN hydrOXYzine Pamoate 25 MG Capsule (Prior Auth: Rx Ref#:[id number]) Oral Medication List reviewed and reconciled with [...] B/L.?PT PULSES:? 2/4, B/L.?Ophthalmology Referral: ?DIABETES EYE EXAM?Diabetic Retinopathy Screening:?Yes ?Findings of Diabetic Eye Exam:?no retinopathy?Dermatologic: ?VERRUCA:?Reveals a Single , multi-loculated , mosaic-patterned, [...] Pt defers any other forms of tx (84388).? * Procedure Codes:?29827 Wart Destruction, 1-14, Modifiers: XS * Preventive [...] Lynn DPM Date:?2023 Generated for Atif castellanos/Mare/Fercho on:?04/09/2024 02:05 PM EST History and Physical Notes * HPI [...]
== END 2024-04-09 13:00 | disposition home or self-care (01) ==
PROVIDERS: PCP Internal Medicine; Visit Provider Internal Medicine
DX: R09.89 Other specified symptoms and signs involving the circulatory and respiratory systems (principal)

== ENCOUNTER → 2024-04-09 11:35 | Outpatient (BNVA) | payer OTHER, SELFPAY | PROVIDERS: PCP Internal Medicine; Visit Provider Internal Medicine | DX: R09.89 Other specified symptoms and signs involving the circulatory and respiratory systems (principal) | CPT/HCPCS: 96127; 99212 ==

== ENCOUNTER → 2024-07-09 23:59 | Outpatient (BNV) | payer OTHER, SELFPAY | PROVIDERS: PCP Internal Medicine; Visit Provider Internal Medicine | DX: F31.9 Bipolar disorder, unspecified (principal) | CPT/HCPCS: G0179 ==

== ENCOUNTER 2024-10-27 07:53 | Outpatient (AMB) | payer OTHER, SELFPAY ==
--- NOTE | 2024-10-27 07:57 | A.OFFPC_ITS ---
Vital Signs 10/27/24 08:07 Height 5 ft 1 in Weight 124 lb BMI 23.4 BP 108/80 Blood Pressure Location Lt brachial Position Sitting Respiration 15 Pulse 65 Pulse Source Pulse Oximeter Temp 98.2 F Temp Source Oral Pulse Oximetry (%) 98 Oxygen Delivery Method Room Air Intake Visit Reasons: PE Intake Note: Pt is here today for her PE: last mammogram 12/26/23, papsmear 03/07/22, cologuard 11/06/23 Allergies olanzapine Adverse Reaction (Severe, Verified 10/27/24 08:23) visual changes carbamazepine (From Tegretol) Adverse Reaction (Intermediate, Verified 10/27/24 08:23) Hyponatremia divalproex sodium (From Depakote) Adverse Reaction (Mild, Verified 10/27/24 08:23) hyperammonemia Medication List - Last Reconciled 10/27/24 by Suzanna Cervantes MD benztropine 0.5 mg PO BEDTIME carvedilol 18.75 mg See Protocol PO BID 30 days clonazepam (Klonopin) 1 mg PO BID clonidine HCl 0.1 mg See Protocol PO BID PRN lamotrigine (Lamictal) 100 mg PO DAILY melatonin 10 mg PO BEDTIME multivitamin (Daily-Ni tablet) 1 tab PO DAILY Tobacco use date assessed: 10/27/24 Dental Screening Dental Screen Date: 10/27/24 Did you have a dental visit in the last 12 months?: Yes Did you have a dental problem in the last 6 months where you did not have access to dental care?: No Was dental information given to patient?: Patient has dentist HPI HPI Comments History of Present Illness Details 64-year-old lady with history of bipolar disorder, history of psychogenic nonepileptic seizure currently on lamotrigine, impaired fasting glucose, dyslipidemia, history of compression fracture of L1 L lumbar vertebra status post surgery, hypertension and stress incontinence, here today for her physical exam. She is up-to-date with her screening mammogram, done earlier this year, sees [facility] for routine Pap and pelvic exam which is currently up-to-date. Had Cologuard testing for colon cancer screening done last year which came back with negative findings. She switched from [facility] to [facility] for her routine eye exam and currently sees a dentist regularly. Has dentures. She is up-to-date with all her vaccines, and planning to get her yearly flu vaccine and COVID booster in the near future. Has been feeling well, except for intermittent episodes of lightheadedness due to hypotension. Patient adjusts her dose of carvedilol depending on her blood pressure reading that day. [facility] Medical History Labile hypertension Leiomyoma PTSD (post-traumatic stress disorder) Bipolar I disorder Tinea unguium History of psychogenic nonepileptic seizure Impaired fasting glucose Dyslipidemia (high LDL; low HDL) Hx of suicide attempt On beta baldemar at home Arthritis Anxiety Diastasis recti Umbilical hernia Compression fracture of L1 lumbar vertebra Dupuytren's contracture of left hand Lumbar disc herniation Essential hypertension Ventral hernia Urinary incontinence Surgical History H/O shoulder surgery Hx of elbow surgery Hx of repair of left rotator cuff Hx of colonoscopy History of lumbar fusion Family History Father Diabetes mellitus Mother COPD (chronic obstructive pulmonary disease) Sister Diabetes mellitus Glaucoma Other Mental health disorder Substance use disorder Social History Household Members: Other Household Members Other:: brother Housing: House Are you a primary medicare contact specialist to a significant other at home: No Do you presently have visiting nurse or other home services: No Unable to assess alcohol history related to: Unknown Alcohol intake: current Alcohol intake frequency: holidays/special occasions only Patient Tobacco Use Status: Former Tobacco user Tobacco use type: Cigarette Cigarette Packs Per Day: 1 Cigarettes Per Day: 20.0 e-Cigarette/Vaping Use: Never Used Second Hand Smoke Exposure: No Substance Use Type: Marijuana Advance Directives Date on File: 11/26/22 service: No Current occupational status: disabled Sexual orientation: Straight/Heterosexual Cognitive needs: No Hearing needs: No Vision needs: No Female Reproductive History Menstrual Other: Goes to [facility] for her routine Pap and pelvic exam Questionnaire PHQ-9 Over the last 2 weeks, how often have you been bothered by any of the following problems? 1. Little interest or pleasure in doing things: several days 2. Feeling down, depressed, or hopeless: several days 3. Trouble falling or staying asleep, or sleeping too much: several days 4. Feeling tired or having little energy: not at all 5. Poor appetite or overeating: not at all 6. Feeling bad about yourself - or that you are a failure or have let yourself or your family down: not at all 7. Trouble concentrating on things, such as reading the newspaper or watching television: not at all 8. Moving or speaking so slowly that other people could have noticed. Or the opposite - being so fidgety or restless that you have been moving around a lot more than usual: not at all 9. Thoughts that you would be better off or of hurting yourself in some way: not at all Total score: 3 Depression Screening Interpretation: Positive (Currently followed by psychiatry, Yesika Mendez NP) Depression Screening Follow-up: Existing condition, In treatment and Community Mental Health Worker F/U Depression Screening Done: Yes Source: Developed by Drs. Cirilo Chang, Amisha Norman, Rajan Montelongo and colleagues, with an educational krista from [employer]. Thrive Questionnaire Date Thrive assessed: 10/27/24 I am a: Patient What is your living situation today?: I have a place to live, but I am worried about losing it in the future Within the past 12 months, did the food you bought not last and you didn't have the money to get more?: Never true Within the past 12 months, did you worry whether your food would run out before you got money to buy more?: Never true Do you have trouble paying for medicines?: No Do you have trouble getting transportation to medical appointments?: No Do you have trouble paying your heating and electricity bill?: No Do you have trouble taking care of your child, family member or friend?: No Do you have trouble with day-to-day activities such as bathing, preparing meals, shopping, managing finances, etc.?: No Are you currently unemployed and looking for a job?: No Are you interested in more education?: Yes Please select the resources that you would like help with: Housing/Care Home THRIVE Score: 1 AUDIT C Alcohol Use Questionnaire (AUDIT-C) 1. How often do you have a drink containing alcohol?: Never Total Score: 0 DANNIE-7 AMB Questionnaire DANNIE-7 Date DANNIE - 7 assessed: 04/09/24 Feeling nervous, anxious, or on edge: 1 = Several days Not being able to stop or control worryin = Several days Worrying too much about different things: 1 = Several days Trouble relaxin = Not at all Being so restless that it is hard to sit still: 0 = Not at all Becoming easily annoyed or irritable: 0 = Not at all Feeling afraid as if something awful might happen: 0 = Not at all Total DANNIE-7 score (0-4 normal; 5-9 mild; 10-14 moderate; 15-21 severe): 3 Source: Developed by Drs. Cirilo Chang, Amisha Norman, Rajan Montelongo and colleagues, with an educational krista from [employer]. Review of Systems Const Reports no additional complaints Eyes Reports no additional complaints ENT Reports no additional complaints and Reports as per HPI Card Reports no additional complaints Resp Reports no additional complaints GI Reports no additional complaints Reports no additional complaints Musc Reports no additional complaints Skin/Breast Denies breast skin changes, Denies breast pain, Denies breast mass and Denies rash Neuro Reports no additional complaints Psych Reports no additional complaints and Denies anxiety Endo Reports no additional complaints Dayo/Lymph Reports no additional complaints Aller/Immun Reports no additional complaints Physical exam (Primary Care) Vital Signs: Last Vital Signs Temp 98.2 F 10/27/24 08:07 Pulse 65 10/27/24 08:07 Resp 15 10/27/24 08:07 BP 108/80 10/27/24 08:07 Pulse Ox 98 10/27/24 08:07 Oxygen Delivery Method Room Air 10/27/24 08:07 BMI result Body Mass Index 23.4 Tobacco/Smoking Status: Tobacco use Status Tobacco use date assessed 10/27/24 10/27/24 07:59 Patient Tobacco Use Status Former Tobacco user 10/27/24 07:59 Tobacco use type Cigarette 10/27/24 07:59 e-Cigarette/Vaping Use Never Used 10/27/24 07:59 PHQ-9: PHQ-9 Score PHQ-9: Total score 3 10/27/24 08:14 Depression Screening Interpretation: Positive (Currently followed by psychiatry, Yesika Mendez NP) Depression Screening Follow-up: Existing condition, In treatment and Community Mental Health Worker F/U Thrive Assessment: Date of Thrive Assessment Date Thrive assessed 10/27/24 10/27/24 07:59 Const Other: Alert oriented x3, no acute distress noted, ambulatory with normal gait HENMT Mouth: moist mucous membranes and other Eyes General: appearance normal, both eyes and all related structures Neck Neck: Yes full ROM, Yes no lymphadenopathy and Yes supple Resp Auscultation: clear to auscultation bilaterally Cardio Other: S1 and S2 present regular rate and rhythm GI Inspection: Yes other (Diastasis recti present) Palpation (GI): Soft to palpation, nontender and no guarding Auscultation: normal bowel sounds General: Yes deferred (Sees [facility] for her routine Pap and pelvic exam) Back/Spine/Pelvis Back: No back tenderness Skin General skin exam: no rashes or lesions noted Neuro General: gait normal, tone normal, moves all extremities, no focal motor deficits and CN's II-XI intact bilaterally Extrem General: Yes full ROM, Yes no joint enlargement, Yes no pedal edema and Yes normal gait Psych Appearance: grossly normal and well kempt Mental Status: mental status grossly normal Speech and movement: Normal speech and movement present Affect: normal affect Thought process: Normal thought process present Coding Level of Care Code Est Pt Prev Care 40-64y(61924) Diagnoses Annual visit for general adult medical examination with abnormal findings Z00.01 Urinary incontinence R32 Essential hypertension I10 Dyslipidemia (high LDL; low HDL) E78.5 Impaired fasting glucose R73.01 History of psychogenic nonepileptic seizure Z87.898 Insomnia, unspecified type G47.00 Insomnia type: unspecified Bipolar I disorder F31.9 Assessment & Plan Assessment & Plan (1) Annual visit for general adult medical examination with abnormal findings: Code(s): Z00.01 - Encounter for general adult medical examination with abnormal findings Plan: Will check appropriate labs. Recommended dental visit every 6 months, has dentures on upper, and regular eye exams, at least every 2 years., patient states that she has switched from [facility] to [facility] which she already has an appointment scheduled. Take adequate calcium in diet and vitamin-D 3 at 2000 IU per cap once a day, in addition to weight-bearing exercises to help maintain good muscle tone and weight control. Instructed to do self-breast exam, and continue to get yearly mammogram, currently up-to-date. She sees [facility] for her routine Pap and pelvic exam. Cologuard testing done 2 for colon cancer screening which came back negative.. Immunization information provided: Yearly flu vaccine, up-to-date with her shingles vaccine Tdap and RSV patient states that she will also schedule her COVID vaccine booster. (2) Urinary incontinence: Code(s): R32 - Unspecified urinary incontinence Category: Medical Plan: Do Kegel's (3) Essential hypertension: Code(s): I10 - Essential (primary) hypertension Category: Medical Plan: Blood pressure at goal of less than 130/80. Continue with current medication. Patient knows how to adjust her blood pressure medicine whenever falls too low she does not take her carvedilol dose, hardly takes her clonidine, as she states it drops her blood pressure too low. Reinforced importance of following a low sodium diet, getting regular exercise, and lowering stress levels.. Ordered a has basic metabolic panel (4) Dyslipidemia (high LDL; low HDL): Code(s): E78.5 - Hyperlipidemia, unspecified Category: Medical Plan: Fasting lipid panel ordered. Reinforced importance of following a low- cholesterol diet and getting regular exercise. (5) Impaired fasting glucose: Code(s): R73.01 - Impaired fasting glucose Category: Medical Plan: Your previous fasting blood sugars were elevated above 100 mg/dL. Impaired glucose metabolism increases the risk for developing diabetes mellitus type 2, as well as heart attack and stroke later on. Lifestyle changes that promotes weight loss, healthy eating habits, and regular exercise are important, and can prevent the progression to diabetes (6) History of psychogenic nonepileptic seizure: Code(s): Z87.898 - Personal history of other specified conditions Category: Medical Plan: Currently on lamotrigine, has been seizure-free for the last several years (7) Insomnia: Code(s): G47.00 - Insomnia, unspecified Category: Medical Qualifiers: Insomnia type: unspecified Qualified Code(s): G47.00 - Insomnia, unspecified Plan: Takes melatonin as needed (8) Bipolar I disorder: Comment: sees Yesika Mendez emergency veterinary assistant Code(s): F31.9 - Bipolar disorder, unspecified Category: Medical Plan: Currently followed by her psychiatrist, Yesika Camacho Orders: Orders Aspartate Amino Transferase Today Suzanna Cervantes MD E78.5 - Hyperlipidemia, unspecified, F31.9 - Bipolar disorder, unspecified, G47.00 - Insomnia, unspecified, I10 - Essential (primary) hypertension, R32 - Unspecified urinary incontinence, R73.01 - Impaired fasting glucose, Z00.01 - Encounter for general adult medical examination with abnormal findings, Z87.898 - Personal history of other specified conditions Vitamin D 25-OH Total Today Suzanna Cervantes MD E78.5 - Hyperlipidemia, unspecified, F31.9 - Bipolar disorder, unspecified, G47.00 - Insomnia, unspecified, I10 - Essential (primary) hypertension, R32 - Unspecified urinary incontinence, R73.01 - Impaired fasting glucose, Z00.01 - Encounter for general adult medical examination with abnormal findings, Z87.898 - Personal history of other specified conditions Vitamin B12 and Folate Today Suzanna Cervantes MD E78.5 - Hyperlipidemia, unspecified, F31.9 - Bipolar disorder, unspecified, G47.00 - Insomnia, unspecified, I10 - Essential (primary) hypertension, R32 - Unspecified urinary incontinence, R73.01 - Impaired fasting glucose, Z00.01 - Encounter for general adult medical examination with abnormal findings, Z87.898 - Personal history of other specified conditions Alanine Aminotransferase Today Suzanna Cervantes MD E78.5 - Hyperlipidemia, unspecified, F31.9 - Bipolar disorder, unspecified, G47.00 - Insomnia, unspecified, I10 - Essential (primary) hypertension, R32 - Unspecified urinary incontinence, R73.01 - Impaired fasting glucose, Z00.01 - Encounter for general adult medical examination with abnormal findings, Z87.898 - Personal history of other specified conditions Basic Metabolic Panel Fasting Today Suzanna Cervantes MD E78.5 - Hyperlipidemia, unspecified, F31.9 - Bipolar disorder, unspecified, G47.00 - Insomnia, unspecified, I10 - Essential (primary) hypertension, R32 - Unspecified urinary incontinence, R73.01 - Impaired fasting glucose, Z00.01 - Encounter for general adult medical examination with abnormal findings, Z87.898 - Personal history of other specified conditions Lipid Panel Today Suzanna Cervantes MD E78.5 - Hyperlipidemia, unspecified, F31.9 - Bipolar disorder, unspecified, G47.00 - Insomnia, unspecified, I10 - Essential (primary) hypertension, R32 - Unspecified urinary incontinence, R73.01 - Impaired fasting glucose, Z00.01 - Encounter for general adult medical examination with abnormal findings, Z87.898 - Personal history of other specified conditions Medications: Changed From lamotrigine (Lamictal) 75 mg (3 x 25 mg) PO DAILY 14 days 90 tabs 0RF To lamotrigine (Lamictal) 100 mg PO DAILY Nancy Pizarro, PRECINCT COMMANDING OFFICER
--- OUTSIDE RECORDS SUMMARY | 2024-10-27 07:58 | XMS_ITS | Clinical Summary ---
Author Organization [facility] Address [address] [place] [address] Care Team Providers Care Egyptologist Name Role Phone Unavailable Primary Care Provider [...] 2) 2011 Colorectal Cancer Screening: Colonoscopy 01/14/2022 HIV Screening 01/14/2022 Hepatitis C Screening 01/14/2022 Social Influencers of Health Screening 01/14/2022 Depression Screening 02/12/2024 COVID-19 Vaccine ( - 2023-2 5 season) 2024 Influenza Vaccine (#1) 2024 RSV Immunization Adult Patie nts (1 - 1-dose 75+ series) 2036 HIB [...] age to complete this topic Meningococcal B Vaccine Aged Out No l onger eligible based on patient's age to complete this topic RSV Immunization Patients Un travis 20 months Aged Out No longer eligible b ased on patient's age to complete this topic Varicella Vaccines Aged Out No longer eligible based on patient's age to complete this topic
--- OUTSIDE RECORDS SUMMARY | 2024-10-27 07:58 | XMS_ITS | Clinical Summary ---
Author Organization [facility] Address [address] [address] Phone Care Team Providers Care Construction Grip Name Role Phone Jenniffer Cervantes MD Primary Care Provider [phone] Allergies No known active allergies Medications thiamine (,VITAMIN B-1,) 100 MG tablet Take 100 mg by mouth 1 (one) time each day 2 Active mirtazapine (REMERON) 7.5 MG tablet Take 7.5 mg by mouth at bed time 2 Active melatonin 3 MG tablet Take 6 mg by mouth every night 2 Active OLANZapine (ZyPREXA) 2.5 MG tablet Take 2.5 mg by mouth 1 (one) time each day in the morning 3 Active OLANZapine (ZyPREXA) 10 MG tablet Take 10 mg by mouth every night 3 Active zolpidem (Ambien) 5 MG tablet Take 5 mg by mouth every night 3 Active amitriptyline (ELAVIL) 10 MG tablet Take 10 mg by mouth at bed time Active cloNIDine (CATAPRES) 0.1 MG tablet Take 0.1 mg by mouth 5 Active haloperidol (HALDOL) 5 MG tablet Take 5 mg by mouth Active haloperidol decanoate (HALDOL DECANOATE) 50 MG/ML injection ADMINISTER 1 ML IN THE MUSCLE EVERY 4 WEEKS Active clonazePAM (KlonoPIN) 2 MG tablet Take 1 mg by mouth in the morning and 1 mg in the evening. Active carvedilol (COREG) 12.5 MG tablet Take 0.5 tablets (6.25 mg total) by mouth in the morning and 0.5 tablets (6.25 mg total) in the evening. 60 tablet 11 Active Active Problems Problem Noted Date Diagnosed Date Hypertension 08/23/2023 Bipolar disorder 08/23/2023 Hyposmolality and/or hyponatremia 05/11/2021 Immunizations Immunization Administration Dates Next Due Influenza (IM) Preservative [...] Sign Reading Time Taken Comments Blood Pressure 100/60 04/21/2024 9:21 AM EDT Pulse 60 04/21/2024 9:21 AM EDT Temperature - - Respiratory Rate - - Oxygen Saturation 98% 04/21/2024 9:21 AM EDT Inhaled Oxygen Concentration - - Weight 61.6 kg (135 lb 12.8 oz) 04/21/2024 9:21 AM EDT Height 154.9 cm (5' 1 ) 08/23/2022 8:18 AM EDT Body Mass Index 25.66 08/23/2022 8:18 AM EDT Plan of Treatment Upcoming Encounters Date Type Department Care Team (Late st Contact Info) Description 04/20/2025 9:00 AM EDT Office Visit [facility] [address] [phone] Samuel Espinal MD [address] [phone] Health Maintenance Due Date Last Done Comments Breast Cancer Screening 1960 Colorectal Cancer Screening: Annual FOBT 2010 Colorectal Cancer Screening: Colonoscopy 2010 Colorectal Cancer Screening: Sigmoidoscopy 2010 Pneumococcal Vaccine: 50+ Ye ars (2 of 2 - PCV) 05/11/2015 05/10/2014 Influenza Vaccine (#1) 2024 10/12/2020 Pneumococcal Vaccine: Peds ( 0 to 5 Years) and At-Risk Patients (6 to 49 Years) Discontinued 05/10/2014 Hepatitis B Vaccine Aged Out No longe r eligible based on patient's age to complete this topic Insurance (A2793) (A2793) Care Teams Construction Grip Relationship Specialty Start Date End Date Jenniffer Cervantes MD 1960 [place] [address] PCP - General Internal Medicine 05/16/21
[2024-10-27 08:07] VITALS: BP 108/80; PULSE 65; RESP 15; TEMP 36.8; O2SAT 98; BMI 23.4
== END 2024-10-27 08:47 | disposition home or self-care (01) ==
LOC: HO.HMCC 07:53
PROVIDERS: PCP Internal Medicine; Visit Provider Internal Medicine
DX: Z00.01 Encounter for general adult medical examination with abnormal findings (principal); R32 Unspecified urinary incontinence; F31.9 Bipolar disorder, unspecified; I10 Essential (primary) hypertension; E78.5 Hyperlipidemia, unspecified; R73.01 Impaired fasting glucose; Z87.898 Personal history of other specified conditions; G47.00 Insomnia, unspecified

== ENCOUNTER → 2024-10-27 07:53 | Outpatient (BNVA) | payer OTHER, SELFPAY | PROVIDERS: PCP Internal Medicine; Visit Provider Internal Medicine | DX: Z00.01 Encounter for general adult medical examination with abnormal findings (principal); F31.9 Bipolar disorder, unspecified; R32 Unspecified urinary incontinence; I10 Essential (primary) hypertension; E78.5 Hyperlipidemia, unspecified; R73.01 Impaired fasting glucose; G47.00 Insomnia, unspecified; Z87.898 Personal history of other specified conditions | CPT/HCPCS: 96127; 99396 ==

== ENCOUNTER 2024-11-13 09:59 | Outpatient (REF) | payer OTHER, SELFPAY ==
--- OUTSIDE RECORDS SUMMARY | 2024-11-13 10:45 | XMS_ITS | Clinical Summary ---
Author Organization [facility] ity Address [address] [place] [address] Care Team Providers Care Health Companion Name Role Phone Unavailable Primary Care Provider [...] Breast Cancer Screening 1960 Colorectal Cancer Screening: Colonoscopy 1960 DTaP,Tdap,and Td Vaccines (1 - Tdap) 1980 Cervical Cancer Screening: P ap Smear 1982 Pneumococcal Vaccine: 50+ Ye ars (1 of 1 - PCV) 2011 Zoster Vaccines (1 of 2) 2011 HIV Screening 01/14/2022 Hepatitis C Screening 01/14/2022 Social Influencers of Health Screening 01/14/2022 Depression Screening 02/12/2024 COVID-19 Vaccine (1 - 2023-2 5 season) 2024 Influenza Vaccine [...]
--- OUTSIDE RECORDS SUMMARY | 2024-11-13 10:45 | XMS_ITS | Clinical Summary ---
Author Organization [facility] Address [address] [phone] Phone Care Team Providers Care Cloud Systems Architect Name Role Phone Jenniffer Cervantes MD Primary Care Provider [phone]- [phone] Allergies No known active allergies Medications thiamine [...] Visit [facility] [address] [phone] Samuel Espinal MD [address] [phone] Health Maintenance Due Date Last Done Comments [...] this topic Insurance (A2793) ([id number]) Care Teams Cloud Systems Architect Relationship Specialty Start Date End Date Jenniffer Cervantes MD 1960 [place] [address] PCP - General Internal Medicine 05/16/21
[2024-11-13 14:33] LABS: Alanine Aminotransferase 39 U/L (0-31); Anion Gap 13 (12-20); Aspartate Amino Transferase 35 U/L (5-31); Blood Urea Nitrogen 8 mg/dL (9-16); Calcium 9.8 mg/dL (8.4-10.2); Carbon Dioxide 24 mmol/L (22-29); Chloride 99 mmol/L (96-108); Cholesterol 245 mg/dL (<200); Estimated Glomerular Filt Rate > 60; HDL Cholesterol 58 mg/dL (>40); Potassium 4.4 mmol/L (3.3-5.1); Sodium 132 mmol/L (135-145); Triglycerides 86 mg/dL (<150)
[2024-11-13 14:54] LABS: Folate 15.5 ng/mL (> or = 4.0); Vitamin B12 1826 pg/mL (200-900)
== END 2024-11-13 10:00 | disposition home or self-care (01) ==
LOC: HO.HMGCLDS 09:59
PROVIDERS: PCP Internal Medicine; Visit Provider Internal Medicine
DX: R07.89 Other chest pain (principal); Z00.01 Encounter for general adult medical examination with abnormal findings; I10 Essential (primary) hypertension; R73.01 Impaired fasting glucose; E78.5 Hyperlipidemia, unspecified; R32 Unspecified urinary incontinence; F31.9 Bipolar disorder, unspecified; G47.00 Insomnia, unspecified; Z87.898 Personal history of other specified conditions
CPT/HCPCS: 36415; 80048; 80061; 82306; 82607; 82746; 84450; 84460; 93005; 99212

== ENCOUNTER 2024-11-13 10:18 | Outpatient (AMB) | payer OTHER, SELFPAY ==
[2024-11-13 10:22] VITALS: BP 112/84; PULSE 62; O2SAT 100; BMI 23.4
--- NOTE | 2024-11-13 10:22 | MHC.OFFWIV ---
Intake Vital Signs 11/13/24 10:22 Height 5 ft 1 in Weight 124 lb BMI 23.4 BP 112/84 Blood Pressure Location Lt brachial Position Sitting Pulse 62 Pulse Source Pulse Oximeter Pulse Oximetry (%) 100 Oxygen Delivery Method Room Air Intake Visit Reasons: EP chest pains Intake Note: pt presents with concern for chest pain episodes- last episode was 2 days while watching tv and it didn't last long , headache yesterday only Patient Tobacco Use Status: Former Tobacco user Allergies olanzapine Adverse Reaction (Severe, Verified 11/13/24 10:25) visual changes carbamazepine (From Tegretol) Adverse Reaction (Intermediate, Verified 11/13/24 10:25) Hyponatremia divalproex sodium (From Depakote) Adverse Reaction (Mild, Verified 11/13/24 10:25) hyperammonemia gabapentin Adverse Reaction (Mild, Verified 11/13/24 10:26) Unknown trazodone Adverse Reaction (Mild, Verified 11/13/24 10:26) groggy Do you need a note to return to daycare/school/sports/work: No HPI HPI Comments History of Present Illness Details This is a 64-year-old female with a past medical history of bipolar disorder, PTSD and hypertension with a normal stress test in May 2021 presenting for evaluation of chest pain. Patient states that she had chest pain lasting approximately 5 minutes at 10:00 p.m. on Saturday evening while watching television. She denies having any associated shortness of breath, nausea, vomiting, cough, hemoptysis or pain in her extremities. The patient's chest pain has not recurred since that time and she had a mild headache yesterday. At this visit the patient is chest pain-free and has no physical complaints. Repeat blood pressure is 132/92. [facility] Medical History Labile hypertension Leiomyoma PTSD (post-traumatic stress disorder) Bipolar I disorder Tinea unguium History of psychogenic nonepileptic seizure Impaired fasting glucose Dyslipidemia (high LDL; low HDL) Hx of suicide attempt On beta baldemar at home Arthritis Anxiety Diastasis recti Umbilical hernia Compression fracture of L1 lumbar vertebra Dupuytren's contracture of left hand Lumbar disc herniation Essential hypertension Ventral hernia Urinary incontinence Surgical History H/O shoulder surgery Hx of elbow surgery Hx of repair of left rotator cuff Hx of colonoscopy History of lumbar fusion Family History Father Diabetes mellitus Mother COPD (chronic obstructive pulmonary disease) Sister Diabetes mellitus Glaucoma Other Mental health disorder Substance use disorder Social History Household Members: Other Household Members Other:: brother Housing: House Are you a primary dog daycare provider to a significant other at home: No Do you presently have visiting nurse or other home services: No Alcohol intake: current Alcohol intake frequency: holidays/special occasions only Patient Tobacco Use Status: Former Tobacco user Tobacco use type: Cigarette Cigarette Packs Per Day: 1 Cigarettes Per Day: 20.0 e-Cigarette/Vaping Use: Never Used Second Hand Smoke Exposure: No Substance Use Type: Marijuana Advance Directives Date on File: 11/26/22 service: No Current occupational status: disabled Sexual orientation: Straight/Heterosexual Cognitive needs: No Hearing needs: No Vision needs: No Review of Systems Const All systems reviewed & are unremarkable except as noted in HPI and below Reports no additional complaints Eyes Reports no additional complaints ENT Reports no additional complaints Card Reports no additional complaints, Denies chest pain, Denies chest pain at rest, Denies chest pain with activity, Denies rapid heart rate and Denies dyspnea Resp Denies cough and Denies dyspnea GI Reports no additional complaints, Denies diarrhea, Denies nausea and Denies vomiting Reports no additional complaints Musc Reports no additional complaints Skin/Breast Reports system reviewed and no additional complaints, except as documented Neuro Reports no additional complaints Psych Reports no additional complaints Endo Reports no additional complaints Dayo/Lymph Reports no additional complaints Physical Exam Vital Signs: Last Vital Signs Pulse 62 11/13/24 10:22 BP 112/84 11/13/24 10:22 Pulse Ox 100 11/13/24 10:22 Oxygen Delivery Method Room Air 11/13/24 10:22 BMI result Body Mass Index 23.4 Const General: cooperative, healthy appearing, comfortable, no acute distress, well developed, alert, awake and Physically active; No acute distress, ill appearing or lethargic Nutritional Appearance: average body habitus Orientation/consciousness: patient oriented x3 and No lethargic Limitations: no limitations Resp Effort & Inspection: normal respiratory effort, able to speak in complete sentences, no audible wheezes, no cough, no nasal flaring and not tachypneic Auscultation: clear to auscultation bilaterally Cardio Rate: regular rate Rhythm: regular rhythm Heart sounds: S1 normal heart sound present and S2 normal heart sound present Skin General skin exam: no rashes or lesions noted Lesions: no lesions Neuro General: patient oriented x3 Psych Appearance: grossly normal Mental Status: mental status grossly normal Attitude: cooperative Thought process: Normal thought process present Thought content: Normal thought content present Insight: Good insight present (Psych) Judgement: Good judgement present (Psych) Results Reviewed Results Reviewed: EKG reveals NSR with a rate of 61bpm; no ischemic changes Assessment & Plan Assessment & Plan (1) Chest pain: Comment: EKGs reviewed with patient. Patient is asymptomatic at this time. Vital signs are reviewed. Code(s): R07.9 - Chest pain, unspecified Qualifiers: Chest pain type: other chest pain Qualified Code(s): R07.89 - Other chest pain Plan: Patient is instructed to go to the emergency department if her chest pain recurs. Patient states that she has VNA services in her home 3 times a week. Patient will be discharged home at this time. Orders: Orders AMB EKG-In Office Today R07.9 - Chest pain, unspecified Coding Level of Care Code Est Pt Level 4 (63771) Diagnoses Other chest pain R07.89 Chest pain type: other chest pain Time Spent (min) 25
--- OUTSIDE RECORDS SUMMARY | 2024-12-09 20:00 | XMS_ITS | Clinical Summary ---
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 [place] [id number] [place] [id number] MEDICARE - [facility] - [place] [id number] Problems Condition Name Condition Details Condition Category [...] 03-04 00:00: 00 04-28 23:59 :00 No [id number] Per instruc tions EVERY Per instructio ns EVERY (route: oral) Med Classific ation: Cardiovas cular Therapy Agents melatonin 3 mg tablet 04-28 00:00: 00 02-11 23:59 :00 No [id number] 1 tablet BEDTIME 1 tablet BEDTIME (route: oral) Med Classific ation: Central Nervous System Agents metoprolol succinate ER 50 mg tablet,exte nded release 24 hr 04-28 00:00: 00 02-11 23:59 :00 No [id number] 1 tablet DAILY 1 tablet DAILY (route: oral) Med Classific ation: Cardiovas cular Therapy Agents thiamine HCl (vitamin B1) 100 mg tablet 04-28 00:00: 00 02-11 23:59 :00 No [id number] 1 tablet DAILY 1 tablet DAILY (route: oral) Med Classific ation: Electroly te Balance-N utritiona l Products Seroquel 25 mg tablet 05-19 00:00: 00 06-26 23:59 :00 No [id number] 1-2 tablet 2 TIMES DAILY 1-2 tablet 2 TIMES DAILY (route: oral) Med Classific ation: Central Nervous System Agents lisinopril 20 mg tablet 06-28 00:00: 00 02-11 23:59 :00 No [id number] 1 tablet EVERY AM 1 tablet EVERY AM (route: oral) Med Classific ation: Cardiovas cular Therapy Agents olanzapine 15 mg tablet 06-28 00:00: 00 02-11 23:59 :00 No [id number] 1 tablet BEDTIME 1 tablet BEDTIME (route: oral) Med Classific ation: Central Nervous System Agents trazodone 100 mg tablet 06-28 00:00: 00 02-11 23:59 :00 No [id number] Per instruc tions BEDTIME Per instructio ns BEDTIME (route: oral) Med Classific ation: Central Nervous System Agents amlodipine 5 mg tablet 02-20 00:00: 00 04-16 23:59 :00 No [id number] 5 mg EVERY AM 5 mg EVERY AM (route: oral) Med Classific ation: Cardiovas cular Therapy Agents benztropine 0.5 mg tablet 02-20 00:00: 00 07-01 23:59 :00 No [id number] 0.5 mg BEDTIME 0.5 mg BEDTIME (route: oral) Med Classific ation: Central Nervous System Agents carvedilol 6.25 mg tablet 02-20 00:00: 00 02-21 23:59 :00 No [id number] 6.25 mg EVERY AM 6.25 mg EVERY AM (route: oral) Med Classific ation: Cardiovas cular Therapy Agents clonidine HCl 0.1 mg tablet 02-20 00:00: 00 Yes [id number] 0.1 mg NEEDED 0.1 mg NEEDED (route: oral) Med Classific ation: Cardiovas cular Therapy Agents haloperidol 5 mg tablet -10 00:00: 00 05-04 23:59 :00 No [id number] 5 mg EVERY AM 5 mg EVERY AM (route: oral) Med Classific ation: Central Nervous System Agents lamotrigine 25 mg tablet 02-20 00:00: 00 05-07 23:59 :00 No [id number] 25 mg BEDTIME 25 mg BEDTIME (route: oral) Med Classific ation: Central Nervous System Agents melatonin 3 mg tablet 02-20 00:00: 00 07-01 23:59 :00 No [id number] 3 mg BEDTIME 3 mg BEDTIME (route: oral) Med Classific ation: Central Nervous System Agents multivitami n tablet 02-20 00:00: 00 Yes [id number] 1 tablet EVERY AM 1 tablet EVERY AM (route: oral) Med Classific ation: Electroly te Balance-N utritiona l Products zolpidem 10 mg tablet 02-20 00:00: 00 07-01 23:59 :00 No [id number] 10 mg BEDTIME 10 mg BEDTIME (route: oral) Med Classific ation: Central Nervous System Agents carvedilol 6.25 mg tablet - 00:00: 00 Yes [id number] 6.25 tablet 2 TIMES DAILY 6.25 tablet 2 TIMES DAILY (route: oral) Med Classific ation: Cardiovas cular Therapy Agents Haldol Decanoate 50 mg/mL intramuscul ar solution 05 00:00: 00 Yes [id number] 1 mL MONTHLY 1 mL MONTHLY (route: intramuscu lar) Med Classific ation: Central Nervous System Agents amitriptyli ne 10 mg tablet 05-07 00:00: 00 05-04 23:59 :00 No [id number] 1 tablet BEDTIME 1 tablet BEDTIME (route: oral) Med Classific ation: Central Nervous System Agents Lamictal 100 mg tablet 05-07 00:00: 00 Yes [id number] 1 tablet BEDTIME 1 tablet BEDTIME (route: oral) Med Classific ation: Central Nervous System Agents clonazepam 2 mg tablet 06-09 00:00: 00 Yes [id number] 0.5 tablet 2 TIMES DAILY 0.5 tablet 2 TIMES DAILY (route: oral) Med Classific ation: Central Nervous System Agents amoxicillin 500 mg tablet 02-27 00:00: 00 03-06 23:59 :00 No [id number] 1 tablet 3 TIMES DAILY 1 tablet 3 TIMES DAILY (route: oral) Med Classific ation: Anti-Infe ctive Agents chlorhexidi ne gluconate 0.12 % mouthwash 02-27 00:00: 00 Yes [id number] 15 mL DAILY 15 mL DAILY (route: mucous membrane) Med Classific ation: Mouth-Thr oat-Denta l - Preparati ons IBU 600 mg tablet 02-27 00:00: 00 03-06 23:59 :00 No [id number] 1 tablet 4 TIMES DAILY 1 tablet 4 TIMES DAILY (route: oral) Med Classific ation: Analgesic , Anti-infl ammatory or Antipyret ic oxycodone-a cetaminophe n 5 mg-325 mg tablet 02-27 00:00: 00 Yes [id number] 1 tablet EVERY 6 HOURS 1 tablet EVERY 6 HOURS (route: oral) Med Classific ation: Analgesic , Anti-infl ammatory or Antipyret ic amitriptyli ne 25 mg tablet 05-04 00:00: 00 07-01 23:59 :00 No [id number] 1 tablet BEDTIME 1 tablet BEDTIME (route: oral) Med Classific ation: Central Nervous System Agents melatonin 10 mg tablet 07-01 00:00: 00 Yes [id number] 1 tablet BEDTIME 1 tablet BEDTIME (route: oral) Med Classific ation: Central Nervous System Agents mirtazapine 7.5 mg tablet 07-01 00:00: 00 Yes [id number] 1 tablet BEDTIME 1 tablet BEDTIME (route: oral) Med Classific ation: Central Nervous System Agents Vital Signs Vital Name Observation Time Observation Value Commen ts Temperature 2024-11-02 15:53:00.000 97.4 [degF] Temperature 2024-10-26 16:00:00.000 97.2 [degF] Pulse 2024-11-11 08:46:00.000 64 /min Pulse 2024-11-09 09:00:00.000 70 /min Pulse 2024-11-06 08:32:00.000 66 /min Pulse 2024-11-04 11:45:00.000 60 /min Pulse 2024-11-02 15:53:00.000 72 /min Pulse 2024-10-26 16:00:00.000 61 /min Respirations 2024-11-06 08:32:00.000 18 /min Respirations 2024-11-02 15:53:00.000 18 /min Respirations 2024-10-26 16:00:00.000 18 /min Systolic Blood Pressure 2024-11-11 08:46:00.000 137 mm [Hg] Systolic Blood Pressure 2024-11-09 09:00:00.000 119 mm [Hg] Systolic Blood Pressure 2024-11-06 08:32:00.000 98 mm[ Hg] Systolic Blood Pressure 2024-11-04 11:45:00.000 114 mm [Hg] Systolic Blood Pressure 2024-11-02 15:53:00.000 117 mm [Hg] Systolic Blood Pressure 2024-10-26 16:00:00.000 124 mm [Hg] Diastolic Blood Pressure 2024-11-11 08:46:00.000 [...] AWARENESS FOR SAFETY AND WILL NOTIFY CLINICAL TRANSFORMER BUILDER AND PHYSICIAN/PROVIDER WITH ANY CHANGE IN CONDITION. [code = SKILLED NURSE WILL MAINTAIN SITUATIONAL AWARENESS FOR SAFETY AND WILL NOTIFY CLINICAL TRANSFORMER BUILDER AND PHYSICIAN/PROVIDER WITH ANY CHANGE IN CONDITION.] [...] CARE WILL BE ESTABLISHED THAT MEETS PATIENT'S LONGTERM NEEDS AND INCLUDES PATIENT GOAL FOR HOME [...] End Date/Time Encounter Type Admission Type Attending [facility] Care Department Encounter ID Discharge Date Discharge Status Discharge Condition Discharge Reason Percent Goals Met 2024-10-12 00:00:00 2024-12-10 00:00:00 Outpatient RECERTIFIC VICKY CORON[facility] [id number] 43.75
== END 2024-11-13 10:58 | disposition home or self-care (01) ==
PROVIDERS: PCP Internal Medicine; Visit Provider Physician Assistant
DX: R07.89 Other chest pain (principal)

== ENCOUNTER 2024-11-25 05:29 | Inpatient (IN) | payer OTHER, SELFPAY ==
--- OUTSIDE RECORDS SUMMARY | 2024-11-18 14:10 | XMS_ITS | Encounter Summary ---
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 at home. PT Received On: 11/19/24 PT Start Time: 1430 PT Stop Time: 1500 PT Time Calculation (min): 30 min General Family/Caregiver Present: No Precautions Medical Precautions: Fall Risk, Seizures Safety Interventions: Call alejo within reach, ID band on, Bed alarm RUE Weight Bearing Status: Full LUE Weight Bearing Status: Full RLE Weight Bearing Status: Full LLE Weight Bearing Status: Full Cognition Overall Cognitive Status: Within Functional Limits Arousal/Alertness: Appropriate responses to stimuli Orientation Level: Oriented X4 Cognition Comments: the pt talks continuously with topics changing constantly and needs redirectionto attend to task Hearing: Intact Vision: Intact Speech: Intact Integumentary: no acute issues noted History of Present Illness: Patient is a 64 y.o. female admitted to [facility] on 11/18/2024. Problem List[1] Medical History[2] Surgical History[3] Social History Home Living Environment: Home Living Type of Home: House Lives With: Other (Comment) (she lives with her brother) Home Adaptive Equipment: None Home Layout: One level Home Access: Stairs to enter with rails Entrance Stairs-Rails: Rail on the right going up Entrance Stairs-Number of Steps: 3 Prior Function Level of [place]: Independent with mobility and functional transfers Ambulation Status: Household ambulator, Community ambulator Indoor Mobility Assistance: Independent Stairs Assistance : Independent Prior Device Use: No prior device use Do you drive?: Yes Mode of Transportation: Car Which is your dominant hand?: Right General Assessment 11/19/24 1430 PT Last Visit PT Received On 11/19/24 General Family/Caregiver Present No PT Time Calculation PT Start Time 1430 PT Stop Time 1500 PT Time Calculation (min) 30 min Precautions Medical Precautions Fall Risk;Seizures Safety Interventions Call alejo within reach;ID band on;Bed alarm RUE Weight Bearing Status Full LUE Weight Bearing Status Full RLE Weight Bearing Status Full LLE Weight Bearing Status Full Vital Signs Heart Rate 87 (HR 87 at rest and after ambulation 141) Pain Assessment Pain Assessment No/denies pain Patient's Pain Goal No pain Cognition Overall Cognitive Status WFL Arousal/Alertness Appropriate responses to stimuli Cognition Comments the pt talks continuously with topics changing constantly and needs redirection to attend to task Home Living Type of Home House Lives With Other (Comment) (she lives with her brother) Home Adaptive Equipment None Home Layout One level Home Access Stairs to enter with rails Entrance Stairs-Rails Rail on the right going up Entrance Stairs-Number of Steps 3 Prior Function Level of [place] Independent with mobility and functional transfers Ambulation Status Household ambulator;Community ambulator Indoor Mobility Assistance Independent Stairs Assistance Independent Prior Device Use No prior device use Do you drive? Yes Mode of Transportation Car Which is your dominant hand? Right Sensation Light Touch No apparent deficits Proprioception Proprioception No apparent deficits Static Sitting Balance Static Sitting-Level of Assistance Independent Static Sitting-Balance Support Feet supported;No upper extremity supported Dynamic Sitting Balance Dynamic Sitting-Level of Assistance Independent Dynamic Sitting-Balance Forward lean Dynamic Sitting-Balance Support Feet supported;No upper extremity supported Static Standing Balance Static Standing-Level of Assistance Supervision Static Standing-Balance Support No upper extremity supported Dynamic Standing Balance Dynamic Standing-Level of Assistance Supervision Dynamic Standing-Balance Ambulation Dynamic Standing-Balance Support No upper extremity supported Bed Mobility Rolling Left and Right Assistance Independent Sitting to Lying Assistance Independent Lying to Sitting Assistance Independent Transfers Sit to Stand Assistance Independent Chair/Bed to Chair/Bed Transfer Assistance Independent Ambulation Walking Assistance Supervision Walking Deficit (mild antalgic gait on the R and she tends to move quickly) Device No device Distance Ambulated (ft) 100 Comments the pt's HR was 87 at rest and up to 141 while walking. The pt talks continuously when walking and cues given to not talk and to stop and rest when the HR elevated. Only needed approx 30 secof rest for HR to return to normal RUE Assessment RUE Assessment Within Functional Limits RUE Assessment Comments the pt reports a R shoulder replacement a few years agot, strength is good in that arm and active shoulder flexion limited to 160 LUE Assessment LUE Assessment Within Functional Limits RLE Assessment RLE Assessment Within Functional Limits LLE Assessment LLE Assessment Within Functional Limits PT Assessment PT Assessment Results At baseline Evaluation/Treatment Tolerance Patient tolerated treatment well Medical Staff Made Aware Yes Plan Treatment/Interventions Gait training;Balance training;Stair training PT Plan Skilled PT PT Frequency 2-5 days per week PT Discharge Recommendations Home independent PT - Evaluation Status Complete PT - OK to Discharge Yes PT Evaluation Time Entry PT Evaluation (Moderate) Time Entry 30 ADDITIONAL COMMENTS: Chart reviewed. RN clears pt for session. Pt agrees to participate and presented in supine upon PT arrival. All lines in place. Medical precautions observed appropriately. Initiated education on the importance of PT, bed mobility safety, Transfer Safety, Ambulation Safety , Therapy Plan of Care, Home Safety, Energy Conservations strategies, and importance of OOB activity . Pt verbalized understanding. EXIT STATUS: Session ended with patient supine, tray table and call light within reach, and RN made aware. Physical Therapy Assessment/Plan Caryn Pinto is a 64 y.o. female admitted to [facility] on 11/18/2024 for Seizure ([facility] V24, [facility] V28) [R56.9] . Pt performed bed mobility Independent, , Transfers with Supervision, None and ambulates Supervision with None 100 ft . Pt will benefit from skilled acute PT during hospital stay to improve the deficits listed above and optimize function. PT recommends Home independent when medically stable for safe discharge and to optimize functional mobility and independence. Goals Encounter Problems Encounter Problems (Active) Template: Physical Therapy Problem: PT Short Term Goals Dates: Start: 11/19/24 Goal: PT STG 1 the pt will go up and down 3 steps with 1 railing Independently Dates: Start: 11/19/24 Expected End: 11/26/24 Goal: PT STG 2 the pt will ambulate 100 independently with HR WNL Dates: Start: 11/19/24 Expected End: 11/26/24 Encounter Problems (Resolved) There are no resolved problems. Education Documentation Precautions, taught by Gabrielle Jeronimo PT at 11/19/2024 4:40 PM. Learner: Patient Readiness: Acceptance Method: Explanation Response: Verbalizes Understanding, Needs Reinforcement Comment: The pt educated on pacing due to inc HR and need for rest, will need reminders Mobility Training, taught by Gabrielle Jeronimo PT at 11/19/2024 4:40 PM. Learner: Patient Readiness: Acceptance Method: Explanation Response: Verbalizes Understanding, Needs Reinforcement Comment: The pt educated on pacing due to inc HR and need for rest, will need reminders Education Comments No comments found. Gabrielle Jeronimo PT [1] Patient Active Problem List Diagnosis Seizure ([facility] V24, [facility] V28) [2] History reviewed. No pertinent past medical history. [3] History reviewed. No pertinent surgical history. * Juanita Grace RN - 11/19/2024 10:57 AM EDT 11/19/24 1056 Initial Transition Plan Initial Transition Plan Home Health Care Discharge Planning Living Arrangements Family members (Currently residing with brother) Type of Residence Private residence Assistive Devices None Support Systems Immediate family Medication Coverage Has Med Coverage Under Insurance Plan Yes Medication Affordability No concerns related to payment for meds Anticipated Discharge Needs Discipline following for SNF placement Coal [employer]ooter Informed Choice Informed Choice Given? Yes Transportation Final Discharge Disposition Home Health Care Services [facility] met with patient at bedside, patient is currently living with her brother where she is independent with her care. She does not use DME, Drives, does not wear home O2 and is not a . She uses [facility] [address] as a pharmacy,=. Patient is active with [facility] and plan is to d/c home with there services when medically ready * Dhara Mcdermott NP - 11/19/2024 7:36 AM EDT Images from the original note were not included. IZZY PROGRESS NOTE Date: 11/19/2024 Author: Dhara Mcdermott NP Patient ID: Caryn Pinto is a 64 y.o. female : 1960 MR#: [id number] SUBJECTIVE Subjective Patient awake and alert Pressured speech No focal deficits EEG pending Reporting no appetite States she has lost 20 pounds in the past few months Telemetry monitoring reveals NSR with HR 73 bpm Case discussed with patient, nursing staff, [facility] nurse and attending MD Dr. Alejo Allergies: Patient has no known allergies. Current Medications: MEDSSCHEDULED[1] MEDSCONTINUOUS[2] MEDSPRN[3] OBJECTIVE Vitals: 11/18/24 2352 11/19/24 0146 11/19/24 0417 11/19/24 0738 BP: 82/59 122/75 109/63 (!) 142/85 BP Location: Left arm Patient Position: Lying Pulse: 72 66 64 66 Resp: 18 18 Temp: 36 ??C (96.8 ??F) 36.6 ??C (97.9 ??F) TempSrc: Temporal Oral SpO2: 99% 97% Weight: Height: Physical Exam Physical Exam Vitals reviewed. Constitutional: General: She is not in acute distress. Appearance: She is not toxic-appearing. HENT: Head: Normocephalic and atraumatic. Nose: Nose normal. Mouth/Throat: Mouth: Mucous membranes are moist. Pharynx: Oropharynx is clear. Eyes: Extraocular Movements: Extraocular movements intact. Pupils: Pupils are equal, round, and reactive to light. Cardiovascular: Rate and Rhythm: Normal rate and regular rhythm. Heart sounds: No murmur heard. No friction rub. No gallop. Pulmonary: Effort: Pulmonary effort is normal. No respiratory distress. Breath sounds: Normal breath sounds. Abdominal: General: There is no distension. Palpations: Abdomen is soft. Tenderness: There is no abdominal tenderness. There is no guarding or rebound. Musculoskeletal: General: Normal range of motion. Cervical back: Normal range of motion and neck supple. No rigidity. Skin: General: Skin is warm and dry. Capillary Refill: Capillary refill takes less than 2 seconds. Findings: No rash. Neurological: Mental Status: She is alert and oriented to person, place, and time. Sensory: No sensory deficit. Motor: No weakness. LABS HEMATOLOGY Lab Results Component Value Date WBC 7.8 11/19/2024 HGB 12.7 11/19/2024 HCT 37.2 11/19/2024 MCV 87.7 11/19/2024 PLT 277 11/19/2024 CHEMISTRY Lab Results Component Value Date GLUCOSE 104 (H) 11/19/2024 NA 136 11/19/2024 K 4.3 11/19/2024 CO2 26 11/19/2024 CL 103 11/19/2024 BUN 14 11/19/2024 CREATININE 0.66 11/19/2024 EGFR 99 11/19/2024 CALCIUM 8.9 11/19/2024 ANIONGAP 7 11/19/2024 Imaging: MR Brain wo Contrast Narrative: INDICATION: Speech changes (or aphasia), new or progressive MR Brain without gadolinium Comparison: CT/SR - CT ANGIO HEAD NECK STROKE WO AND OR W CONTRAST - 11/18/24 14:[address]/SR - CT HEAD STROKE WO CONTRAST - 11/18/24 14:36 EDT Findings: No restricted diffusion. No intra-axial mass or hemorrhage. Diffuse cerebral atrophy and chronic periventricular microvascular ischemic changes. No midline shift. No hydrocephalus. Vascular flow voids are intact. The orbits are normal. The sinuses and mastoid air cells are clear. No focal bone lesion. No acute intracranial abnormality seen. Impression: 1. Diffuse cerebral atrophy and chronic periventricular microvascular ischemic changes. 2. No acute intracranial abnormality seen. This document has been electronically signed by: Mango Quigley MD on 11/18/2024 20:54:22 CT Angio Head/Neck Stroke wo and/or w Contrast Narrative: PROCEDURE: CTA HEAD AND NECK INDICATION: aphasia TECHNIQUE: CTA of the head and neck with intravenous contrast. Multiplanar reformats. The examination was performed utilizing dose reduction techniques.3-D or MIP images were produced with postprocessing on an independent computer workstation. 90cc Omnipaque 370 injected. Scan was analyzed using Direct Sitters based computer aided triage software. Total DLP: 1494. mGy/cm COMPARISON: No priors available. FINDINGS: Noncon Brain: Dictated separately CTA Neck: There is a left-sided aortic arch. Great vessels are patent with conventional anatomy. Atherosclerotic plaque at both carotid bulbs without evidence for aneurysm or dissection. Less than 50% stenosisof the proximal right and artery. Cervical vertebral arteries are patent. Visualized lung apices are clear. Right thyroid nodule. CTA Head: Unremarkable carotid siphons. Proximal middle and anterior circulation is patent. Vertebrobasilar system is patent. Proximal emergency veterinary technician are patent. Major dural venous sinuses opacify normally with contrast. Extracranial structures are unremarkable. Degenerative changes in the bones. Impression: No evidence of hemodynamically significant stenosis in the head or neck. -------- FINAL REPORT -------- Dictated By: Татьяна Obrien Dictated Date: 11/18/2024 15:04 ET Assigned Physician: Татьяна Obrien Reviewed and Electronically Signed By: Татьяна Obrien Signed Date: 11/18/2024 15:10 ET Workstation ID: [id number] Transcribed By: Self Edit Transcribed Date: 11/18/2024 15:[address] Head Stroke wo Contrast Narrative: PROCEDURE: HEAD CT INDICATION: Aphasia TECHNIQUE: CT of the head without intravenous contrast. Multiplanar reformats. The examination was performed utilizing dose reduction techniques. Total DLP 807 COMPARISON: 10/25/2022. FINDINGS: No acute territorial infarct, mass effect, or intracranial hemorrhage. Moderate scattered periventricular and subcortical white matter hypodensities are most likely related to chronic small vessel ischemic change. CSF spaces commensurate for degree of volume loss. No hydrocephalus. Visualized paranasal sinuses are clear. Mastoid air cells are clear. No calvarial fracture. Impression: No intracranial hemorrhage. Findings communicated to Dr. Martinez at approximately 2:47 via secure text. -------- FINAL REPORT -------- Dictated By: Татьяна Obrien Dictated Date: 11/18/2024 14:46 ET Assigned Physician: Татьяна Obrien Reviewed and Electronically Signed By: Татьяна Obrien Signed Date: 11/18/2024 14:48 ET Workstation ID: [id number] Transcribed By: Self Edit Transcribed Date: 11/18/2024 14:46 ET ASSESSMENT & PLAN Seizure like activity History of nonepileptic seizures previously [facility] Neurology Continues on Lamictal Telemetry monitoring reveals NSR with HR 73 Work up was negative for acute stroke CTA of head: showing no acute intracranial abnormality CTA of neck: showing no significant stenosis of the head or neck Brain MRI showing: Diffuse cerebral atrophy and chronic periventricular microvascular ischemic changes. No acute intracranial abnormality seen No focal neuro deficits upon exam Continues on ASA and Statin Appreciate neurology input and recommendations EEG pending Hypertension Continue Coreg BID Blood pressure stable 142/85 Continue PRN clonidine Hyponatremia Resolved Sodium is 136 this am Bipolar disorder Continue Cogentin Continue Klonopin Off Haldol (after going to the courts ) Appreciate psychiatrist input and recommendations Insomnia Continue Melatonin Hyperlipidemia Continue statin 7. DVT prophylaxis Patient is ambulatory Intermittent compression boots 8. Unintentional weight loss 9. BMI is 21 Reporting poor appetite and weight loss Appreciate police sergeant input and recommendations Add supplements TID 10. FULL CODE My total time spent was 60 minutes I have discussed the above assessment and plan with my attending physician Dr. Alejo who agrees withthe above assessment and plan. [1] aspirin, 81 mg, oral, Daily atorvastatin, 40 mg, oral, Nightly benztropine, 0.5 mg, oral, Nightly carvediloL, 18.75 mg, oral, BID clonazePAM, 1 mg, oral, BID lamoTRIgine, 100 mg, oral, Daily melatonin, 10 mg, oral, Nightly [2] [3] PRN medications: cloNIDine, LORazepam Cosigned by Malcolm Alejo MD at 11/19/2024 12:47 PM EDT * Jaiden Adam RN - 11/18/2024 5:56 PM EDT NURSING SWALLOW SCREEN Exclusing Criteria: (choose one) exclusion criteria: No Exclusion Criteria - Proceed to 3 oz water trial Please Note: Only proceed with screen if 'No exclusion criteria' is selected. If 'no risk factors' selected proceed with diet per order. This is for someone with No aspiration risk factor. Stroke pts ARE a risk factor. If any exclusion criteria selected (except for 'No Risk Foctors' or 'No Exclusion Criteria') order Swallowing Evaluation /FEES by Speech /Language Pathologist. Screen may be repeated if patient shows clinical improvement (Clinical improvement is defined as patient not showing signs of any exclusion criteria. Assessment (3 oz Water Swallow Challenge): Pass/Fail: Pass Perform Water Swallow Challenge and Document Pass/Fail Instructions for completing water swallow challenge >Sit patient upright 80-90 degrees > Patients with HOB elevated 30-80 degrees are eligible for aspiration screen >Ask patient to drink 3 oz water (90 ml) from cup or through straw in sequential swallows without stopping (cup or straw can be held by patient or staff) >Assess for coughing, choking, or cleonng throat during swallowing immediately after completion of drinking Pass: Able to drink 3 ounces of i-rater with sequential swallows without coughing, clearing throat,or change in vocal quality during and / or immediately after. Notify MD of results and obtain diet order Fail: Inability to perform sequential swallows Cough, clearing throat, or change in vocal quality during and/or immediately after drinking. Notify MD of results Keep NPO including medication. Order Swallov Evaluation / FEES by Speech / Language Pathologist. Jaiden Adam RN * Jaiden Adam RN - 11/18/2024 5:43 PM EDT ED RN HANDOFF (All Mcintosh Below Must Be Completed) Reason/Diagnosis for Admission: Seizure Type of Admission: [] Medsurg, [x] Telemetry Already in a Hospital Bed: [] Yes / [x] No Room Considerations/Precautions (ex: fever, diarrhea, or any infectious concerns): [] Yes / [x] No Box Cutter: [] Yes / [x] No If YES, Cardiac Rhythm: [] NSR, [] SB, [] ST, [] A-FIB, [] A-Flutter, [] Pacemaker, [] 1st Degree HB, [] 2nd Degree HB, [] 3rd Degree HB Reason for Box Cutter: VS: Visit Vitals BP (!) 167/103 (BP Location: Left arm, Patient Position: Lying) Pulse 96 Temp 36.6 ??C (97.9 ??F) (Oral) Resp 18 Ht 1.575 m (62 ) Wt 53.5 kg (118 lb) SpO2 97% BMI 21.58 kg/m?? BSA 1.53 m?? Current Mental Status: A/O x [x]4, []3, []2, []1 Current Ambulation Status: Standby IV Access: [x] Yes / [] No Field IV present: [] Yes / [x] No Hx of Violence: [] Yes / [] No / [x] Unknown Fall Risk:[x] Yes / [] No Yellow Bracelet Applied [x] Yes / [] No Yellow Socks Applied [x] Yes / [] No Patient Belongings inventoried and BL completed: [x] Yes / [] No Patient belongings stored in the security closet: [] Yes (If Yes please supply Security bag #): [x] No Patient Medications stored in Pharmacy: [] Yes (If Yes please supply Medication Security bag #): [x] No ED Summary of Care: Pt presents to ED after experiencing 4 episodes of being unable to form words properly. Pt states this is a warning sign for her before she seizes. States its been over 2 years since last seizure. Pt has experienced 3 more episodes during her ED stay, but has not had seizure. Pt is ambulatory but reports feeling dizzy, gait is steady. Notable labs include sodium of 130, pt has history of hyponatremia. Ceribell initiated at 1711, no reported seizure activity as of 1750. Pt has prn ativan ordered with intent to be administered during aphasic episodes. Patient called as a stroke alert as precaution, CT of head and neck both negative. Lamotrigine level drawn and lamotrigine administered. Submitted by and Phone Extension: Jaiden IVORY, #[id number] * Domi Mcgraw MD - 11/18/2024 2:57 PM EDT I was called by Dr. Martinez at 2:33 PM on 11/18/2024 regarding 64-year-old woman with a past medicalhistory significant for nonepileptic seizures presented to the [facility] due to concern of 5 separate occasions started during early in the morning patient had described his seizure symptoms. Patient reported the first symptoms she typically gets is loss of ability to speak. It last for few minutes and then resolved after laying on her left side. Reportedly patient had severe chest pain that resolves spontaneously. Has 20 pounds weight loss unintentionally over the past few months. Per ED attending patient reported that her symptoms last known well was this morning on 8 AM on 11/18/2024 and since then patient had 6 episodes and currently completely back to the baseline with NIH stroke scale of 0. On initial evaluation patient's blood pressure was 167/103 mmHg. Blood sugar level pending. CT head without contrast did not show any large territorial infarct or hemorrhage. CT angiogram of the head and neck showed left ICA calcification without any significant stenosis. Atherosclerotic plaque in the right ICA with mild to moderate stenosis patent proximal vasculature. Follow-up with theformal read. We discussed that given patient's symptoms onset had been outside of the 4-1/2-hour window with currently NIH stroke scale of 0 without any residual disabling symptoms patient is not a thrombolytic candidate. RECOMMENDATIONS: -Advised to follow-up with the formal read on the CT angiogram of the head and neck if any acute findings immediately reach out to the stroke team and neurointervention. -If no acute findings admit the patient to the hospital. -Consult Dr. Chavez. -Monitor the patient on the Ceribell and reach out to the on-call epileptologist to rule out any subclinical seizures. -Based on the EEG findings patient's antiepileptic medications can be titrated. -If no contraindication Aspirin 81 mg p.o. daily given mild stenosis in the right ICA further duration of antiplatelet therapy, possibility of dual antiplatelet therapy and statins can be considered after evaluation by Dr. Chavez and MRI of the brain without contrast. -Carotid duplex to gauge right ICA stenosis and follow-up with vascular surgery. -Low threshold for repeat CT/CTA and reach out to the stroke team if patient has any change in examination. -Defer to the primary team regarding workup for chest pain and concern for unintentional weight loss. -Transthoracic echocardiogram with bubble if MRI is positive for ischemic infarct. -HbA1c; Goal < 6.5 -Lipid Panel ;target LDL < 70 -Permissive hypertension in patients with BP <220/120 mm Hg who did not receive IV alteplase or mechanical thrombectomy and do not have a comorbid condition requiring urgent antihypertensive treatment, initiating or reinitiating treatment of hypertension within the first 24 hours -Strict NPO until passes bedside dysphagia screen/Swallow evaluation -Avoid Hyperglycemia -Keep the patient Normothermic -PT/OT -DVT prophylaxis -Neurochecks/NIHSS Q4 hour -Vitals every Q4 hour Formal consult by Dr. Chavez. This patient requires high complexity of decision making to assess, manipulate, and support vital system function and to interpret multiple physiologic parameters and neuroimaging data. I spent 23 minutes of my time reviewing the notes, personally reviewing laboratory results, and formulating the plan of care, care coordination with the primary team's attending. * Grace Rodgers RN - 11/18/2024 2:18 PM EDT Pt states has a hx non-epileptic seizures Last one was 2 years ago States loses speech as first symptom-this has happened 4x today * Cb Martinez MD - 11/18/2024 2:07 PM EDTAssociated Order(s): ECG Rhythm Interpretation and Report Images from the original note were not included. EMERGENCY MEDICINE PROVIDER NOTE Patient Name: Caryn Pinto : 1960 Provider: Cb Martinez MD Chief Complaint: Chief Complaint Patient presents with ??? Seizures History of Present Illness: 64-year-old female with past medical history significant for nonepileptic seizures presents with concern for seizure activity. On 5 separate occasions today starting earlier this morning patient had what she describes as seizure symptoms. Patient states the first symptom she typically gets is loss of ability to speak. It lasts for few minutes and then resolves after laying on her left side. Patient also does have a history of sounds like tonic-clonic seizures, however no recent tonic-clonic episodes. Prior to today her last seizure episode was about 2 years ago. Patient does take Lamictal. She does not know any other seizure medications she would be taking. States she is compliant with her medications. States last week she had sternal severe chest pain that resolved spontaneously. Asymptomatic at this time. She has also noted about 20 pound weight loss unintentionally over the past month with noted decreased appetite. Medical History[1] Surgical History[2] Family History[3] Social History[4] Review of Systems: Pertinent positive and negatives as documented in the HPI. Physical Exam: Vitals: 11/19/24 0738 BP: (!) 142/85 Pulse: 66 Resp: 18 Temp: 36.6 ??C (97.9 ??F) SpO2: 97% Physical Exam Vitals and nursing note reviewed. Constitutional: General: She is not in acute distress. HENT: Head: Normocephalic and atraumatic. Eyes: Extraocular Movements: Extraocular movements intact. Pupils: Pupils are equal, round, and reactive to light. Cardiovascular: Rate and Rhythm: Normal rate and regular rhythm. Pulses: Normal pulses. Pulmonary: Effort: Pulmonary effort is normal. Breath sounds: Normal breath sounds. Abdominal: General: Abdomen is flat. There is no distension. Palpations: Abdomen is soft. Tenderness: There is no abdominal tenderness. Musculoskeletal: Cervical back: Neck supple. Skin: General: Skin is warm and dry. Neurological: General: No focal deficit present. Mental Status: She is alert and oriented to person, place, and time. Cranial Nerves: No cranial nerve deficit. Sensory: No sensory deficit. Motor: No weakness. Coordination: Coordination normal. ED Course: ECG Rhythm Interpretation and Report Date/Time: 11/18/2024 3:29 PM Performed by: Cb Martinez MD Authorized by: Cb Martinez MD ECG interpreted by ED Physician in the absence of a roof foreman: yes Interpretation: Interpretation: abnormal Details: Normal sinus rhythm with a ventricular rate of 85 bpm. Fusion complexes present and PACs. Normal SC, QRS, QTc, axis. QTc, axis. QRS slightly wide at 118 ms. No acute ischemic changes. No recent EKGs to compare to, EKG from October 2022 showed sinus tachycardia, does appear no QRS prolongation, no new PACs. Critical Care Procedure Note: Total critical care time: 0 minutes. Due to a high probability of clinically significant, life threatening deterioration, the patient required my highest level of preparedness to intervene emergently. I spent this critical care time directly and personally managing the patient. This critical care time included obtaining a history; exam ining the patient; ordering studies and reviewing and interpreting results; arranging urgent treatment and developing a management plan; evaluating the patient's response to treatment; frequent reassessments; and discussions with other providers. This critical care time was performed to assess and manage the high probability of imminent, life-threatening deterioration that could result in multi-organ failure and . It was exclusive of separately billable procedures and time spent treating other patients and teaching. Please see the Medical Decision Making section and remainder of the record for additional information on patient assessment and treatment. Authorized and performed by: Cb Martinez MD MR Brain wo Contrast Final Result 1. Diffuse cerebral atrophy and chronic periventricular microvascular ischemic changes. 2. No acute intracranial abnormality seen. This document has been electronically signed by: Mango Quigley MD on 11/18/2024 20:54:22 CT Head Stroke wo Contrast Final Result No intracranial hemorrhage. Findings communicated to Dr. Martinez at approximately 2:47 via secure text. -------- FINAL REPORT -------- Dictated By: Татьяна Obrien Dictated Date: 11/18/2024 14:46 ET Assigned Physician: Татьяна Obrien Reviewed and Electronically Signed By: Татьяна Obrien Signed Date: 11/18/2024 14:48 ET Workstation ID: [id number] Transcribed By: Self Edit Transcribed Date: 11/18/2024 14:[address] Angio Head/Neck Stroke wo and/or w Contrast Final Result No evidence of hemodynamically significant stenosis in the head or neck. -------- FINAL REPORT -------- Dictated By: Татьяна Obrien Dictated Date: 11/18/2024 15:04 ET Assigned Physician: Татьяна Obrien Reviewed and Electronically Signed By: Татьяна Obrien Signed Date: 11/18/2024 15:10 ET Workstation ID: [id number] Transcribed By: Self Edit Transcribed Date: 11/18/2024 15:04 ET Labs Reviewed COMPREHENSIVE METABOLIC PANEL - Abnormal Result Value Sodium 130 (*) Potassium 4.1 Chloride 97 CO2 25 Anion Gap 8 Glucose 118 (*) BUN 16 Creatinine 0.67 eGFR 98 BUN/Creatinine Ratio 23.9 Calcium 9.7 AST (SGOT) 27 ALT (SGPT) 41 Alkaline Phosphatase 65 Total Protein 7.5 Albumin 4.0 Total Bilirubin 0.6 LIPID PANEL WITH REFLEX TO DIRECT LDL - Abnormal Cholesterol 229 (*) Triglycerides 91 HDL 68 LDL Calculated 143 (*) VLDL Cholesterol Trey 18.2 Non HDL Chol. (LDL+VLDL) 161 (*) Chol/HDL Ratio 3.4 BASIC METABOLIC PANEL - Abnormal Sodium 136 Potassium 4.3 Chloride 103 CO2 26 Anion Gap 7 Glucose 104 (*) BUN 14 Creatinine 0.66 eGFR 99 BUN/Creatinine Ratio 21.2 Calcium 8.9 TROPONIN I HIGH SENSITIVITY - Normal High Sensitivity Troponin I 7 Narrative: High levels of biotin in samples may falsely decrease hsTroponin values. Use caution when interpreting hsTroponin results in patients taking biotin who exhibit renal impairment (eGFR <60) or in patients taking more than 20 mg/day of biotin. CREATINE KINASE - Normal Total CK 45 PROTHROMBIN TIME WITH INR - Normal Protime 12.6 INR 1.0 COMPLETE BLOOD COUNT - Normal WBC 7.8 RBC 4.20 Hemoglobin 12.7 Hematocrit 37.2 MCV 87.7 MCH 30.0 MCHC 34.1 RDW 12.3 Platelets 277 MPV 9.5 NRBC 0.0 NRBC Absolute 0.00 CBC AND DIFFERENTIAL Narrative: The following orders were created for panel order CBC and differential. Procedure Abnormality Status --------- ------ CBC auto differential[[id number]] Final result Please view results for these tests on the individual orders. CBC WITH AUTO DIFFERENTIAL WBC 8.2 RBC 4.80 Hemoglobin 14.8 Hematocrit 41.5 MCV 86.3 MCH 30.8 MCHC 35.7 RDW 11.9 Platelets 355 MPV 9.4 NRBC 0.0 NRBC Absolute 0.00 Neutrophils Relative 74.2 Lymphocytes Relative 18.4 Monocytes Relative 5.8 Eosinophils Relative 0.6 Basophils Relative 0.6 Immature Granulocytes Relative 0.4 Neutrophils Absolute 6.10 Lymphocytes Absolute 1.51 Monocytes Absolute 0.48 Eosinophils Absolute 0.05 Basophils Absolute 0.05 Immature Granulocytes Absolute 0.03 HEMOGLOBIN A1C Hemoglobin A1C 5.2 Mean Bld Glu Estim. 103 LAMOTRIGINE LEVEL POCT GLUCOSE, BLOOD Medical Decision Making 64-year-old female seen in initial evaluated in stable hemodynamic condition with the previous listed complaint. Evaluation as described. Amount and/or Complexity of Data Reviewed Labs: ordered. Decision-making details documented in ED Course. Radiology: ordered and independent interpretation performed. Decision-making details documented in ED Course. ECG/medicine tests: ordered and independent interpretation performed. Decision- making details documented in ED Course. Admission and/or Transfer Required: Yes ED Course as of 11/19/24 1158 Wed Nov 18, 2024 1430 Called to the bedside by nursing as patient is experiencing another event. On my evaluation she otherwise has normal neurologic examination but is severely aphasic. Stroke alert called. [JF] [address] Mcgraw with stroke neurology. Pending further evaluation. Patient is currentlyin CT. [JF] 1524 CT head as well as CT angiogram head and neck are negative for acute pathologies. After further discussion with neurology, patient in fact the patient is back to baseline and symptoms that initially started around 0800, patient is not at this time a tPA candidate. On repeat examination at thistime patient has a normal neurologic exam, NIH of 0. I discussed this with the patient, patient agrees to forego tPA at this time. [JF] 1541 Patient having another episode of aphasia. Adding 1 mg Ativan. No other neurologic deficits. Iwent to evaluate the patient, stated that it lasted a few minutes, however is no longer symptomaticat this time. Patient takes Lamictal at home. Adding a Lamictal level. Adding 1 g bolus loading dose of Keppra [JF] 1637 Hold keppra for now. Can start keppra after EEG done. [JF] 1639 I discussed the case with Dr. Chavez with neurology. Recommending holding Keppra for now until at least 15 minutes of stereo EEG EEG is obtained. Patient remains otherwise in stable condition, no further events occurring. Admitting to hospitalist service. Neurology will consult in the morning. [JF] 1642 Patient suffered another episode of aphasia. Immediately after nursing speaking to me I presented to the bedside to evaluate patient's neurologic concern. She no longer has aphasia, she has a normal neurologic exam. I have not been able to see any evidence of aphasia besides 1 initial episode earlier during evaluation. Holding on Ativan. [JF] 1700 Evaluation otherwise is not revealing any significant or acute pathologies. Imaging including CT and CT angiogram head/neck are negative for acute pathology. No other medical findings with regards to repeated episodes that are recurrent. From the last episode that occurred until admission patient has not had any further episodes of aphasia. Admitting to hospitalist. [JF] ED Course User Index [JF] Cb Martinez MD Clinical Impressions as of 11/19/24 1158 Aphasia Stroke-like symptoms Seizure ([facility] V24, CMS/[facility] V28) Diagnoses: ICD-10-CM ICD-9-CM 1. Aphasia R47.01 784.3 2. Stroke-like symptoms R29.90 781.99 3. Seizure (CMS/HCC V24, CMS/HCC V28) R56.9 780.39 Current Discharge Medication List Please note that this chart has been created using speech recognition software and may contain errors related to that system, including errors in grammar, punctuation, and spelling. It may also include errors in words and phrases. If there are any questions or concerns, please feel free to contact me for clarification. Cb Martinez MD 11/18/24 1428 Cb Martinez MD 11/18/24 1529 [1] History reviewed. No pertinent past medical history. [2] History reviewed. No pertinent surgical history. [3] No family history on file. [4] Social History Tobacco Use ??? Smoking status: Former Current packs/day: 0.00 Types: Cigarettes Quit date: 2004 Years since quittin.7 Passive exposure: Past ??? Smokeless tobacco: Never Cb Martinez MD 11/19/24 1158 documented in this encounter H&P Notes * ALEX Mansfield - 11/18/2024 7:01 PM EDT Images from the original note were not included. IZZY HISTORY AND PHYSICAL Please contact author [ALEX Mansfield] via [employer]. Patient: Caryn Pinto Admission Date/Time: 11/18/2024 2:10 PM : 1960 [64 y.o.] Patient's PCP: Suzanna Cervantes MD Attending Provider: Marisol Richardson MD Chief Complaint Seizures History of Present Illness Caryn is a pleasant 64-year-old female with a past medical history to include chronic hyponatremia.Related to psychiatric medications as well as psychogenic polydipsia, hypertension, documented history of bipolar disorder insomnia and a history of nonepileptic seizures previously seen by [facility] neurology presenting to the hospital today for evaluation of possible seizure activity. She reports she is having episodes of difficulty with speech. In the last 24 hours calluses happened maybe 8 or 9 times in total. Her history of seizures appears to be varying, she has had convulsive like seizures reported in the past, she has had preceding episodes of aphasia in the past. There is no recent falls or head injury. There is no focal headache. She does describe dizziness. No vision changes. No weakness. No paresthesias. She was established with [facility] neurology but has been dismissed . She,in the last several years, petition the court and has discontinue her haloperidol. On arrival in the emergency department, blood pressure was 163/103, heart rate was 96, respirationsof 18 with an SpO2 of 97% on room air and a temperature of 36.6 ??C. She had labs drawn which show no or anemia. Leukocytosis chronic hyponatremia with a sodium of 130 is noted. Remainder of electrolytes renal function liver function studies are reassuring. High sensitive troponin x 1 resulted at 7. Total CK is 45. PT/INR within normal limits. She had an EKG obtained as listed below. At some point she had a change in her mental status in the ED provide ordered CT head without contrast as well as CTA head and neck. Case been discussed with neurology. She is currently on cerebell monitoring. She has been admitted to the medicine team for ongoing management. Review of Symptoms Review of Systems Constitutional: Negative for chills and fever. Respiratory: Negative for shortness of breath. Cardiovascular: Negative for chest pain. Gastrointestinal: Negative for constipation, diarrhea, nausea and vomiting. Genitourinary: Negative for frequency and urgency. Musculoskeletal: Negative for gait problem. Skin: Negative for rash. Neurological: Positive for speech difficulty. Negative for syncope, weakness and headaches. Psychiatric/Behavioral: Negative for suicidal ideas. All other systems reviewed and are negative. Medical History Past Medical History Medical History[1] Past Surgical History Surgical History[2] Social History Family History family history is not on file. Allergies has no known allergies. Home Medications Medications Ordered Prior to Encounter[3] Objective Vitals Visit Vitals BP (!) 167/103 (BP Location: Left arm, Patient Position: Lying) Pulse 96 Temp 36.6 ??C (97.9 ??F) (Oral) Resp 18 Temp (24hrs), Av.6 ??C (97.9 ??F), Min:36.6 ??C (97.9 ??F), Max:36.6 ??C (97.9 ??F) Body mass index is 21.58 kg/m??. No results found for: PTWT , PTHT Physical Examination Physical Exam Vitals reviewed. Constitutional: General: She is not in acute distress. Appearance: She is not toxic-appearing. HENT: Head: Normocephalic and atraumatic. Nose: Nose normal. Mouth/Throat: Mouth: Mucous membranes are moist. Pharynx: Oropharynx is clear. Eyes: Extraocular Movements: Extraocular movements intact. Pupils: Pupils are equal, round, and reactive to light. Cardiovascular: Rate and Rhythm: Normal rate and regular rhythm. Heart sounds: No murmur heard. No friction rub. No gallop. Pulmonary: Effort: Pulmonary effort is normal. No respiratory distress. Breath sounds: Normal breath sounds. Abdominal: General: There is no distension. Palpations: Abdomen is soft. Tenderness: There is no abdominal tenderness. There is no guarding or rebound. Musculoskeletal: General: Normal range of motion. Cervical back: Normal range of motion and neck supple. No rigidity. Skin: General: Skin is warm and dry. Capillary Refill: Capillary refill takes less than 2 seconds. Findings: No rash. Neurological: Mental Status: She is alert and oriented to person, place, and time. Sensory: No sensory deficit. Motor: No weakness. Comments: At one point during my extensive visit, she developed difficult with her speech most consistent with a pronounced stuttering and difficulty with word finding ECG: Was ECG Performed? Yes . Sinus Rhythm? Yes. Signs of acute ischemia? No Further Interpretation: Initial EKG on arrival showing sinus rhythm with occasional PAC there is QRS widening, there is T wave inversion seen in leads I to I and V6, there is no significant ST segment changes appreciated,'s EKG appears similar compared to prior from 10/25/2022 although QRS widening has progressed LAB RESULTS (most recent) HEMATOLOGY Lab Results Component Value Date WBC 8.2 11/18/2024 HGB 14.8 11/18/2024 HCT 41.5 11/18/2024 MCV 86.3 11/18/2024 PLT 355 11/18/2024 CHEMISTRY Lab Results Component Value Date GLUCOSE 118 (H) 11/18/2024 NA 130 (L) 11/18/2024 K 4.1 11/18/2024 CO2 25 11/18/2024 CL 97 11/18/2024 BUN 16 11/18/2024 CREATININE 0.67 11/18/2024 EGFR 98 11/18/2024 CALCIUM 9.7 11/18/2024 ANIONGAP 8 11/18/[address] Head Stroke wo Contrast Final Result No intracranial hemorrhage. Findings communicated to Dr. Martinez at approximately 2:47 via secure text. -------- FINAL REPORT -------- Dictated By: Татьяна Obrien Dictated Date: 11/18/2024 14:46 ET Assigned Physician: Татьяна Obrien Reviewed and Electronically Signed By: Татьяна Obrien Signed Date: 11/18/2024 14:48 ET Workstation ID: [id number] Transcribed By: Self Edit Transcribed Date: 11/18/2024 14:[address] Angio Head/Neck Stroke wo and/or w Contrast Final Result No evidence of hemodynamically significant stenosis in the head or neck. -------- FINAL REPORT -------- Dictated By: Татьяна Obrien Dictated Date: 11/18/2024 15:04 ET Assigned Physician: Татьяна Obrien Reviewed and Electronically Signed By: Татьяна Obrien Signed Date: 11/18/2024 15:10 ET Workstation ID: [id number] Transcribed By: Self Edit Transcribed Date: 11/18/2024 15:04 ET Assessment & Plan ?Seizures Intermittent Expressive Aphasia TIA vs CVA Caryn is presenting to the hospital today for evaluation of question seizure There is reported documented history of seizure disorder, I see 2 prior visit in October 2022 for seizure-like activity Unfortunately has difficulty with follow-up in the community it appears Not currently established with neurology Currently on the [place] monitor Given the change in clinical picture, ED staff activated stroke alert and discussed the case with neurology Formal consultation to Dr. Chavez Appreciate recommendations and input MRI brain Seizure precautions ASA 81mg daily Carotid duplex Lipid panel Hypertension Most recently seeing by nephrology in the outpatient setting who is helping to manage hypertension as well Continue carvedilol Continue PRN clonidine History of white coat hypertension and I suspect we may see elevated readings given the need for hospitalization Hyponatremia Appears to be chronic in nature Again, as above, followed by nephrology when compliant with appointments Baseline sodium appears near 130 Multifactorial - psychiatric meds, excessive water intake, illness induced, etc. Monitored fluid intake and restrict to < 60 oz/day without bolusing Psychiatric History Documented history of bipolar disorder according to prior notes Reported to me she petitioned the court and discontinued her [place] Haldol and her oral Haldol Continue Benztropine Continue Clonazepam Continue Lamotrigine Case discussed with my attending Dr Richardson. Admission Checklist [x] Code status: Full Code - Default [x] VTE Prophylaxis: Sequentials [x] Diet order on admission: Dietary Orders (From admission, onward) Start Ordered 11/18/245 Adult diet [facility]; General; Regular Diet effective now Question Answer Comment Location [facility] Diet Type (req) General General Diet Regular 11/18/24 1654 [x] Medication reconciliation Health Care proxy with phone number: Diogo Banda, [1] History reviewed. No pertinent past medical history. [2] History reviewed. No pertinent surgical history. [3] No current facility-administered medications on file prior to encounter. Current Outpatient Medications on File Prior to Encounter Medication Sig Dispense Refill ??? benztropine (COGENTIN) 0.5 mg tablet Take 1 tablet (0.5 mg total) by mouth at bedtime. at bedtime ??? carvediloL (COREG) 6.25 mg tablet Take 3 tablets (18.75 mg total) by mouth 2 (two) times a day. ??? cloNIDine (CATAPRES) 0.1 mg tablet Take 1 tablet (0.1 mg total) by mouth 2 (two) times a day. ??? lamoTRIgine (LaMICtal) 100 mg tablet Take 1 tablet (100 mg total) by mouth 1 (one) time each day. ??? melatonin 10 mg capsule Take 1 capsule (10 mg total) by mouth at bedtime. at bedtime ??? clonazePAM (KlonoPIN) 2 mg tablet Take 1 mg by mouth 2 (two) times a day. Cosigned by Marisol Richardson MD at 11/22/2024 12:25 PM EDT documented in this encounter Procedure Notes * Moreno Reese MD - 11/19/2024 5:30 PM EDTAssociated Order(s): Routine EEG Post-Procedure Diagnose(s): Aphasia; Seizure ([facility] V24, [facility] V28) Images from the original note were not included. Routine EEG Date/Time: 11/19/2024 5:30 PM Performed by: Moreno Reese MD Authorized by: Dhara Mcdermott NP ROUTINE ELECTROENCEPHALOGRAPHY (EEG) REPORT Study Date: 11/19/24 Clinical Information History: Caryn Pinto is a 64 y.o. female with seizure like activity Medications: Current Medications[1] Recording Techniques A digital video EEG was performed using the standard international 10-20 electrode placement and single channel EKG electrode. Total Recording Time: 23 minutes Montages: Standard 10-20 system montages Type of Study: Routine EEG Video recorded: Yes Conditions of Recording: Awake - drowsy Results Background: The record was well organized. The waking EEG was characterized by a symmetrical, well-formed and modulated 10 Hz posterior dominant rhythm, with medium amplitude (20-70 uV) and reactive to eye opening. The background over the rest of the head consisted of a mixture of alpha and beta frequencies. Sleep: During drowsiness, the alpha rhythm attenuated and diffuse background slowing appeared. Stage 2 sleep was not recorded. Focal slowing: There were no focal abnormalities or persistent asymmetries. Epileptiform discharges: None Activation Procedures: Hyperventilation: Not performed Photic Simulation: Produced an occipital driving response at some frequencies, but did not result in any abnormal discharges. Clinical events: None Heart Rate: Normal sinus rhythm Classification of the findings: Normal Excess beta Impression This is a normal routine EEG recording in the [id number] states. There were no seizures, periodic patterns, or epileptiform discharges. There is no focal slowing or persistent focal asymmetries of the background rhythms. Excess beta can be seen in setting of sedative or benzodiazepine use. CC No ref. provider found Moreno Reese MD Epileptologist [facility] and [facility] [1] Current Facility-Administered Medications: aspirin EC tablet 81 mg, 81 mg, oral, Daily, ALEX Mansfield, 81 mg at 11/19/24 0953 atorvastatin (LIPITOR) tablet 40 mg, 40 mg, oral, Nightly, Dhara Mcdermott NP benztropine (COGENTIN) tablet 0.5 mg, 0.5 mg, oral, Nightly, Marisol Richardson MD, 0.5 mg at 233 carvediloL (COREG) tablet 18.75 mg, 18.75 mg, oral, BID, Marisol Richardson MD, 18.75 mg at 11/18/24 215 clonazePAM (KlonoPIN) tablet 1 mg, 1 mg, oral, BID, Marisol Richardson MD, 1 mg at 11/19/24 0952 cloNIDine (CATAPRES) tablet 0.1 mg, 0.1 mg, oral, BID PRN, ALEX Mansfield [START ON 11/20/2024] folic acid (FOLVITE) tablet 1 mg, 1 mg, oral, Daily, Dhara Mcdermott NP lamoTRIgine (LaMICtal) tablet 100 mg, 100 mg, oral, Daily, Marisol Richardson MD, 100 mg at 11/19/24 0953 LORazepam (ATIVAN) injection 1 mg, 1 mg, intravenous, PRN, ALEX Mansfield melatonin disintegrating tablet 10 mg, 10 mg, oral, Nightly, Marisol Richardson MD, 10 mg at 11/18/24 2233 [START ON 11/20/2024] multivitamin tablet 1 tablet, 1 each, oral, Daily, Dhara Mcdermott NP [START ON 11/20/2024] thiamine (VITAMIN B-1) tablet 100 mg, 100 mg, oral, Daily, Dhara Mcdermott NP * Moreno Reese MD - 11/18/2024 11:45 PM EDT Procedures Continuous Electroencephalography (EEG) Report Recording 1 Start Time: 2024-11-18 17:10:06 End Time: 2024-11-18 18:11:54 Recording 2 Start Time: 2024-11-18 18:18:32 End Time: 2024-11-18 19:42:46 Diagnostic Recording Time 02:26:03 146 Minutes Recording Techniques: This is an urgent EEG acquired with a digital [employer] EEG machine with ten electrodes, spaced according to the lateral chains of the 10-20 international system of EEG electrode placements. Vertex and paracentral recording electrodes are not included. The [employer] System used the Clarity algorithm to analyze brain activity and detect seizures/statusepilepticus to support reading of the EEG. Performed with Miproto, [employer] Status Epilepticus Monitor, NTAP ICD-10 PCS Code = [id number] Video recorded: No Clinical Information: History: Caryn Pinto is a 64 y.o. woman with nonepileptic seizures, psychogenic polydipsia, hypertension, bipolar disorder insomnia presented on 11/18/24 due to concern of 5 separate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 confirmation testing has not been cleared or approved by the FDA. The laboratory is regulated under CLIA as qualified to perform high-complexity testing. This test is used for patient testing purposes. It should not be regarded as investigational or for research. Test performed at [facility], [address] , [place] [address] Melita Martins MD, PhD - [facility] Blood Venous blood specimen / Unknown Venipuncture / Unknown 11/18/2024 5:55 PM EDT 11/18/2024 6:11 PM EDT Cb Martinez MD LAB BLOOD ORDERABLES Final Res ult [address] [place] [address] * (ABNORMAL) RHYTHM ECG, REPORT (11/18/2024 3:29 PM EDT) Narrative Cb Martinez MD - 11/18/2024 3:29 PM EDT Cb Martinez MD 11/19/2024 11:58 AM ECG Rhythm Interpretation and Report Date/Time: 11/18/2024 3:29 PM Performed by: Cb Martinez MD Authorized by: Cb Martinez MD ECG interpreted by ED Physician in the absence of a roof foreman: yes Interpretation: Interpretation: abnormal Details: Normal sinus rhythm with a ventricular rate of 85 bpm. Fusion complexes present and PACs. Normal SC, QRS, QTc, axis. QTc, axis. QRS slightly wide at 118 ms. No acute ischemic changes. No recent EKGs to compare to, EKG from October 2022 showed sinus tachycardia, does appear no QRS prolongation, no new PACs. Cb Martinez MD ECG ORDERABLES Final Result * 12-Lead ECG (11/18/2024 3:03 PM EDT) Ventricular Rate ECG 85 BPM GEMUSE Atrial Rate 85 BPM GEMUSE P-R Interval 178 ms GEMUSE QRS Duration 118 ms GEMUSE Q-T Interval 378 ms GEMUSE QTc 449 ms GEMUSE P Wave [place] 56 degrees GEMUSE R [place] 19 degrees GEMUSE T [place] 108 degrees GEMUSE ECG Interpretation Sinus rhythm with Fusion complexes and Premature atrial complexes Incomplete left bundle branch block Abnormal ECG When compared with ECG of 25-OCT-2022 18:22, Incomplete left bundle branch block is present Confirmed by Otoniel COTTRELL, MARK ANTHONY ([id number]) on 11/19/2024 7:56:42 AM GEMUSE 11/18/2024 3:03 PM EDT 11/19/2024 7:56 AM EDT Cb Martinez MD ECG ORDERABLES Final Result GEMUSE * Prothrombin time with INR (11/18/2024 2:58 PM EDT) Protime 12.6 10.6 - 13.9 sec LAB COAGULATION METHOD 11/18/2024 3:34 PM EDT [facility] INR 1.0 LAB COAGULATION METHOD 11/18/2024 3:34 PM EDT [facility] Blood Venous blood specimen / Unknown Venipuncture / Unknown 11/18/2024 2:58 PM EDT 11/18/2024 3:18 PM EDT us Cb Martinez MD LAB BLOOD ORDERABLES Final Res ult Performing Organization Address [facility] Co de Phone Number [facility] [address] [place] [address], [place] [phone] * CT Angio Head/Neck Stroke wo and/or w Contrast (11/18/2024 2:45 PM EDT) Anatomical Region Laterality Modality Head and Neck Computed Tomogra phy 11/18/2024 3:04 PM EDT Impressions 11/18/2024 3:10 PM EDT No evidence of hemodynamically significant stenosis in the head or neck. -------- FINAL REPORT -------- Dictated By: Татьяна Obrien Dictated Date: 11/18/2024 15:04 ET Assigned Physician: Татьяна Obrien Reviewed and Electronically Signed By: Татьяна Obrien Signed Date: 11/18/2024 15:10 ET Workstation ID: [id number] Transcribed By: Self Edit Transcribed Date: 11/18/2024 15:04 ET Narrative 11/18/2024 3:10 PM EDT PROCEDURE: CTA HEAD AND NECK INDICATION: aphasia TECHNIQUE: CTA of the head and neck with intravenous contrast. Multiplanar reformats. The examination was performed utilizing dose reduction techniques.3-D or MIP images were produced with postprocessing on an independent computer workstation. 90cc Omnipaque 370 injected. Scan was analyzed using V[employer] Contact AI based computer aided triage software. Total DLP: 1494. mGy/cm COMPARISON: No priors available. FINDINGS: Noncon Brain: Dictated separately CTA Neck: There is a left-sided aortic arch. Great vessels are patent with conventional anatomy. Atherosclerotic plaque at both carotid bulbs without evidence for aneurysm or dissection. Less than 50% stenosis of the proximal right and artery. Cervical vertebral arteries are patent. Visualized lung apices are clear. Right thyroid nodule. CTA Head: Unremarkable carotid siphons. Proximal middle and anterior circulation is patent. Vertebrobasilar system is patent. Proximal emergency veterinary technician are patent. Major dural venous sinuses opacify normally with contrast. Extracranial structures are unremarkable. Degenerative changes in the bones. Procedure Note Татьяна Obrien MD - 11/18/2024 PROCEDURE: CTA HEAD AND NECK INDICATION: aphasia TECHNIQUE: CTA of the head and neck with intravenous contrast. Multiplanarreformats. The examination was performed utilizing dose reductiontechniques.3-D or MIP images were produced with postprocessing on anindependent computer workstation. 90cc Omnipaque 370 injected. Scan wasanalyzed using [employer] AI based computer aided triage software. Total DLP: 1494. mGy/cm COMPARISON: No priors available. FINDINGS: Noncon Brain: Dictated separately CTA Neck: There is a left-sided aortic arch. Great vessels are patent withconventional anatomy. Atherosclerotic plaque at both carotid bulbs withoutevidence for aneurysm or dissection. Less than 50% stenosis of theproximal right and artery. Cervical vertebral arteries are patent. Visualized lung apices are clear. Right thyroid nodule. CTA Head: Unremarkable carotid siphons. Proximal middle and anterior circulation is patent. Vertebrobasilar system is patent. Proximal emergency veterinary technician are patent. Major dural venous sinuses opacify normally with contrast. Extracranial structures are unremarkable. Degenerative changes in thebones. IMPRESSION: No evidence of hemodynamically significant stenosis in the head or neck. -------- FINAL REPORT -------- Dictated By: Татьяна Obrien Dictated Date: 11/18/2024 15:04 ET Assigned Physician: Татьяна Obrien Reviewed and Electronically Signed By: Татьяна Obrien Signed Date: 11/18/2024 15:10 ET Workstation ID: [id number] Transcribed By: Self Edit Transcribed Date: 11/18/2024 15:04 ET Cb Martinez MD [facility] [place] PROCEDURES Final Result * CT Head Stroke wo Contrast (11/18/2024 2:45 PM EDT) Anatomical Region Laterality Modality Head and Neck Computed Tomogra phy 11/18/2024 2:46 PM EDT Impressions 11/18/2024 2:48 PM EDT No intracranial hemorrhage. Findings communicated to Dr. Martinez at approximately 2:47 via secure text. -------- FINAL REPORT -------- Dictated By: Татьяна Obrien Dictated Date: 11/18/2024 14:46 ET Assigned Physician: Татьяна Obrien Reviewed and Electronically Signed By: Татьяна Obrien Signed Date: 11/18/2024 14:48 ET Workstation ID: [id number] Transcribed By: Self Edit Transcribed Date: 11/18/2024 14:46 ET Narrative 11/18/2024 2:48 PM EDT PROCEDURE: HEAD CT INDICATION: Aphasia TECHNIQUE: CT of the head without intravenous contrast. Multiplanar reformats. The examination was performed utilizing dose reduction techniques. Total DLP 807 COMPARISON: 10/25/2022. FINDINGS: No acute territorial infarct, mass effect, or intracranial hemorrhage. Moderate scattered periventricular and subcortical white matter hypodensities are most likely related to chronic small vessel ischemic change. CSF spaces commensurate for degree of volume loss. No hydrocephalus. Visualized paranasal sinuses are clear. Mastoid air cells are clear. No calvarial fracture. Procedure Note Татьяна Obrien MD - 11/18/2024 PROCEDURE: HEAD CT INDICATION: Aphasia TECHNIQUE: CT of the head without intravenous contrast. Multiplanarreformats. The examination was performed utilizing dose reductiontechniques. Total DLP 807 COMPARISON: 10/25/2022. FINDINGS: No acute territorial infarct, mass effect, or intracranial hemorrhage. Moderate scattered periventricular and subcortical white matterhypodensities are most likely related to chronic small vessel ischemicchange. CSF spaces commensurate for degree of volume loss. No hydrocephalus. Visualized paranasal sinuses are clear. Mastoid air cells are clear. No calvarial fracture. IMPRESSION: No intracranial hemorrhage. Findings communicated to Dr. Martinez at approximately 2:47 via securetext. -------- FINAL REPORT -------- Dictated By: Татьяна Obrien Dictated Date: 11/18/2024 14:46 ET Assigned Physician: Татьяна Obrien Reviewed and Electronically Signed By: Татьяна Obrien Signed Date: 11/18/2024 14:48 ET Workstation ID: [id number] Transcribed By: Self Edit Transcribed Date: 11/18/2024 14:46 ET us Cb Martinez MD IMG CT PROCEDURES Final Result * Hemoglobin A1c (11/18/2024 2:33 PM EDT) [facility] Hemoglobin A1C 5.2 <6.5 % LAB CHEMISTRY METHOD 11/18/2024 10:20 PM EDT [facility] Mean Bld Glu Estim. 103 mg/dL LAB CHEMISTRY METHOD 11/18/2024 10:20 PM EDT [facility] Blood Venous blood specimen / Unknown Venipuncture / Unknown 11/18/2024 2:33 PM EDT 11/18/2024 3:05 PM EDT us Jose JOHNSON LAB BLOOD ORDERABLES Sun l Result [facility] [address] [place] [address], [place] [phone] * (ABNORMAL) Lipid panel with reflex to direct LDL (11/18/2024 2:33 PM EDT) [facility] Cholesterol 229(H) 0 - 200 mg/dL LAB CHEMISTRY METHOD 11/18/2024 7:49 PM EDT [facility] Triglycerides 91 0 - 150 mg/dL LAB CHEMISTRY METHOD 11/18/2024 7:49 PM EDT [facility] HDL 68 >=40 mg/dL LAB CHEMISTRY METHOD 11/18/2024 7:49 PM EDT [facility] LDL Calculated 143(H) 0 - 100 mg/dL LAB CHEMISTRY METHOD 11/18/2024 7:49 PM EDT [facility] Comment:Estimated LDL Calcul ated using equation: Total cholesterol - HDL cholesterol - (Triglycerides/5) VLDL Cholesterol Trey 18.2 mg/dL LAB CHEMISTRY METHOD 11/18/2024 7:49 PM EDT [facility] Non HDL Chol. (LDL+VLDL) 161(H) <145 mg/dL LAB CHEMISTRY METHOD 11/18/2024 7:49 PM EDT [facility] Chol/HDL Ratio 3.4 0.0 - 4.4 LAB CHEMISTRY METHOD 11/18/2024 7:49 PM EDT [facility] Blood Venous blood specimen / Unknown Venipuncture / Unknown 11/18/2024 2:33 PM EDT 11/18/2024 3:05 PM EDT Jose JOHNSON LAB BLOOD ORDERABLES Sun l Result [facility] [address] [place] [address], * CBC auto differential (11/18/2024 2:33 PM EDT) WBC 8.2 4.8 - 10.8 K/mcL LAB HEMETOLOGY METHOD 11/18/2024 3:22 PM EDT [facility] RBC 4.80 3.80 - 4.80 M/mcL LAB HEMETOLOGY METHOD 11/18/2024 3:22 PM EDT [facility] Hemoglobin 14.8 11.5 - 16.0 g/dL LAB HEMETOLOGY METHOD 11/18/2024 3:22 PM EDT [facility] Hematocrit 41.5 35.0 - 47.0 % LAB HEMETOLOGY METHOD 11/18/2024 3:22 PM EDT [facility] MCV 86.3 79.0 - 98.0 FL LAB HEMETOLOGY METHOD 11/18/2024 3:22 PM EDT [facility] MCH 30.8 27.0 - 32.0 pcg LAB HEMETOLOGY METHOD 11/18/2024 3:22 PM [facility] MCHC 35.7 32.0 - 37.0 g/dL LAB [facility]OLOG[facility] RDW 11.9 11.0 - 15.0 % LAB HEMETOLOGY METHOD 11/18/2024 3:22 PM [facility] Platelets 355 130 - 400 K/mcL LAB HEMETOLOGY METHOD 11/18/2024 3:22 PM [facility] MPV 9.4 7.0 - 11.0 FL LAB HEMETOLOGY METHOD 11/18/2024 3:22 PM [facility] NRBC 0.0 <1.0 % LAB HEMETOLOGY METHOD 11/18/2024 3:22 PM [facility] NRBC Absolute 0.00 <0.10 K/mcL LAB HEMETOLOGY METHOD 11/18/2024 3:22 PM [facility] Neutrophils Relative 74.2 % LAB HEMETOLOGY METHOD 11/18/2024 3:22 PM [facility] Lymphocytes Relative 18.4 % LAB HEMETOLOGY METHOD 11/18/2024 3:22 PM [facility] Monocytes Relative 5.8 % LAB HEMETOLOGY METHOD 11/18/2024 3:22 PM [facility] Eosinophils Relative 0.6 % LAB HEMETOLOGY METHOD 11/18/2024 3:22 PM [facility] Basophils Relative 0.6 % LAB HEMETOLOGY METHOD 11/18/2024 3:22 PM [facility] Immature Granulocytes Relative 0.4 % LAB HEMETOLOGY METHOD 11/18/2024 3:22 PM EDT [facility] Neutrophils Absolute 6.10 1.50 - 7.00 K/[facility] LAB HEMETOLOGY METHOD 11/18/2024 3:22 PM EDT [facility] Lymphocytes Absolute 1.51 1.00 - 5.00 K/mcL LAB HEMETOLOGY METHOD 11/18/2024 3:22 PM EDT [facility] Monocytes Absolute 0.48 0.20 - 1.00 K/mcL LAB HEMETOLOGY METHOD 11/18/2024 3:22 PM EDT [facility] Eosinophils Absolute 0.05 0.00 - 0.50 K/[facility] HEMETOLOGY METHOD 11/18/2024 3:22 PM EDT [facility] Basophils Absolute 0.05 0.00 - 0.20 K/mcL LAB HEMETOLOGY METHOD 11/18/2024 3:22 PM EDT [facility] Immature Granulocytes Absolute 0.03 0.00 - 0.03 K/mcL LAB HEMETOLOGY METHOD 11/18/2024 3:22 PM EDT [facility] Blood Venous blood specimen / Unknown Venipuncture / Unknown 11/18/2024 2:33 PM EDT 11/18/2024 3:05 PM EDT us Cb Martinez MD LAB BLOOD ORDERABLES Final Res ult [facility] [address] [place] [address], * Cardiac Enzymes - CPK (11/18/2024 2:33 PM EDT) Total CK 45 22 - 269 unit/L LAB CHEMISTRY METHOD 11/18/2024 3:38 PM EDT [facility] Blood Venous blood specimen / Unknown Venipuncture / Unknown 11/18/2024 2:33 PM EDT 11/18/2024 3:05 PM EDT us Cb Martinez MD LAB BLOOD ORDERABLES Final Res ult Performing Organization Address [facility] Co de Phone Number [facility] [address] [place] [address], * Troponin I High Sensitivity (11/18/2024 2:33 PM EDT) [facility] High Sensitivity Troponin I 7 <=54 ng/L LAB CHEMISTRY METHOD 11/18/2024 3:40 PM EDT [facility] Blood Venous blood specimen / Unknown Venipuncture / Unknown 11/18/2024 2:33 PM EDT 11/18/2024 3:05 PM EDT Narrative [facility] - 11/18/2024 3:40 PM EDT High levels of biotin in samples may falsely decrease hsTroponin values. Use caution when interpreting hsTroponin results in patients taking biotin who exhibit renal impairment (eGFR <60) or in patients taking more than 20 mg/day of biotin. us Cb Martinez MD LAB BLOOD ORDERABLES Final Res ult Performing Organization Address [facility] de Phone Number [facility] [address] [place] [address], [place] [phone] * (ABNORMAL) Comprehensive Metabolic Panel (CMP) (11/18/2024 2:33 PM EDT) [facility] Sodium 130(L) 133 - 145 mmol/L LAB CHEMISTRY METHOD 11/18/2024 3:37 PM EDT [facility] Potassium 4.1 3.5 - 5.5 mmol/L LAB CHEMISTRY METHOD 11/18/2024 3:37 PM EDT [facility] Chloride 97 96 - 110 mmol/L LAB CHEMISTRY METHOD 11/18/2024 3:37 PM [facility] CO2 25 21 - 32 mmol/L LAB CHEMISTRY METHOD 11/18/2024 3:37 PM [facility] Anion Gap 8 3 - 11 LAB CHEMISTRY METHOD 11/18/2024 3:37 PM [facility] Glucose 118(H) 70 - 100 mg/dL LAB CHEMISTRY METHOD 11/18/2024 3:37 PM [facility] BUN 16 5 - 25 mg/dL LAB CHEMISTRY METHOD 11/18/2024 3:37 PM [facility] Creatinine 0.67 0.50 - 1.10 mg/dL LAB CHEMISTRY METHOD 11/18/2024 3:37 PM [facility] eGFR 98 >=60 mL/min/1. 73m2 LAB CHEMISTRY METHOD 11/18/2024 3:37 PM [facility] Comment:Calculation based on the Chronic Kidney Disease Epidemiology Collaboration (CKD-EPI) equation refit without adjustment for race. BUN/Creatinine Ratio 23.9 LAB CHEMISTRY METHOD 11/18/2024 3:37 PM [facility] Calcium 9.7 8.5 - 10.5 mg/dL LAB CHEMISTRY METHOD 11/18/2024 3:37 PM [facility] AST (SGOT) 27 10 - 42 unit/L LAB CHEMISTRY METHOD 11/18/2024 3:37 PM [facility] ALT (SGPT) 41 10 - 60 unit/L LAB CHEMISTRY METHOD 11/18/2024 3:37 PM [facility] Alkaline Phosphatase 65 42 - 121 unit/L LAB CHEMISTRY METHOD 11/18/2024 3:37 PM [facility] Total Protein 7.5 6.0 - 8.0 g/dL LAB CHEMISTRY METHOD 11/18/2024 3:37 PM [facility] Albumin 4.0 3.2 - 5.0 g/dL LAB CHEMISTRY METHOD 11/18/2024 3:37 PM EDT [facility] Total Bilirubin 0.6 0.0 - 1.4 mg/dL LAB CHEMISTRY METHOD 11/18/2024 3:37 PM EDT [facility] Blood Venous blood specimen / Unknown Venipuncture / Unknown 11/18/2024 2:33 PM EDT 11/18/2024 3:05 PM EDT us Cb Martinez MD LAB BLOOD ORDERABLES Final Res ult [facility] [address] [place] [address], documented in this encounter Visit Diagnoses Diagnosis Seizure (CMS/HCC V24, CMS/HCC V28)- Primary Other convulsions Aphasia Stroke-like symptoms Seizure (CMS/HCC V24, CMS/HCC V28) Other convulsions documented in this encounter Admitting Diagnoses Diagnosis Seizure (CMS/HCC V24, CMS/HCC V28) Other convulsions documented in this encounter Administered Medications Inactive Administered Medications - up to 3 most recent administrations Medication Order MAR Action Action Date Dose Rate Site aspirin EC tablet 81 mg 81 mg, oral, Daily, First dose on Sat11/19/24 at 0900, Do not crush, chew, or split. Given 11/20/2024 9:25 AM EDT 81 mg Given 11/19/2024 9:53 AM EDT 81 mg atorvastatin (LIPITOR) tablet 40 mg 40 mg, oral, Nightly, First dose on Sat11/19/24 at 2100 benztropine (COGENTIN) tablet 0.5 mg 0.5 mg, oral, Nightly, First dose on Sat11/18/24 at 2100 Given 11/19/2024 9:19 PM EDT 0.5 mg Given 11/18/2024 10:33 PM EDT 0.5 mg carvediloL (COREG) tablet 18.75 mg 18.75 mg, oral, 2 times daily, First dose on Sat11/18/24 at 2100 Given 11/20/2024 9:23 AM EDT 18.75 mg Given 11/19/2024 9:16 PM EDT 18.75 mg Given 11/18/2024 9:50 PM EDT 18.75 mg clonazePAM (KlonoPIN) tablet 1 mg 1 mg, oral, 2 times daily, First dose on Sat11/18/24 at 2100, Hazardous Medication Intact: - Single pair of ASTM standard [id number] certified gloves - Eye/face protection if vomit or potential to spit up Manipulated: - Double pair of ASTM standard [id number] certified gloves - Eye/face protection if vomit or potential to spit up - Staff at reproductive risk must also wear a hazardous gown - Crushing must be performed in sealed closed pouch - Splitting/cutting should be performed by pharmacy, if possible Given 11/20/2024 9:25 AM EDT 1 mg Given 11/19/2024 9:19 PM EDT 1 mg Given 11/19/2024 9:52 AM EDT 1 mg cloNIDine (CATAPRES) tablet 0.1 mg 0.1 mg, oral, 2 times daily PRN, high blood pressure, Starting on Sat11/18/24 at 1926, ADMINISTER FOR SBP >90 folic acid (FOLVITE) tablet 1 mg 1 mg, oral, Daily, First dose on Sat11/20/24 at 0900 iopamidoL (ISOVUE-370) 370 mg iodine /mL (76 %) injection 90 mL 90 mL, intravenous, Once in imaging, Starting on Sat11/18/24 at 1437, For 1 dose Given 11/18/2024 2:38 PM EDT 90 mL lamoTRIgine (LaMICtal) tablet 100 mg 100 mg, oral, Daily, First dose on Sat11/18/24 at 1655 Given 11/20/2024 9:25 AM EDT 100 mg Given 11/19/2024 9:53 AM EDT 100 mg Given 11/18/2024 5:56 PM EDT 100 mg LORazepam (ATIVAN) injection 1 mg 1 mg, intravenous, As needed, seizures, Starting on Sat11/18/24 at 1725, Prior to IV use, lorazepam injection should be DILUTED with an equal volume of compatible solution; Rate of administration should NOT exceed 2 mg/min. melatonin disintegrating tablet 10 mg 10 mg, oral, Nightly, First dose on Sat11/18/24 at 2100 Given 11/19/2024 9:16 PM EDT 10 mg Given 11/18/2024 10:33 PM EDT 10 mg multivitamin tablet 1 tablet 1 tablet (1 each), oral, Daily, First dose on Sat11/20/24 at 0900 Given 11/20/2024 9:23 AM EDT 1 tablet sodium chloride 0.9 % bolus 1,000 mL 1,000 mL, intravenous, at 1,000 mL/hr, Administer over 1 Hours, Once, On Sat11/19/24 at 0030, For 1 dose New Bag 11/19/2024 12:33 AM EDT 1,000 mL 1000 mL/hr sodium chloride 0.9 % bolus 500 mL 500 mL, intravenous, at 1,000 mL/hr, Administer over 30 Minutes, Once, On Sat11/18/24 at 1542, For 1 dose New Bag 11/18/2024 4:03 PM EDT 500 mL 1000 mL/hr sodium chloride 0.9 % flush 10 mL 10 mL, intravenous, Once, On Sat11/18/24 at 1439, For 1 dose Given 11/18/2024 2:38 PM EDT 10 mL thiamine (VITAMIN B-1) tablet 100 mg 100 mg, oral, Daily, First dose on Sat11/20/24 at 0900 documented in this encounter Historical Medications * This list may reflect changes made after this encounter. melatonin 10 mg capsule Take 1 capsule (10 mg total) by mouth at bedtime. at bedtime 10/18/2024 lamoTRIgine (LaMICtal) 100 mg tablet Take 1 tablet (100 mg total) by mouth 1 (one) time each day. 10/29/2024 cloNIDine (CATAPRES) 0.1 mg tablet Take 1 tablet (0.1 mg total) by mouth 2 (two) times a day. 02/25/2024 clonazePAM (KlonoPIN) 2 mg tablet Take 1 mg by mouth 2 (two) times a day. carvediloL (COREG) 6.25 mg tablet Take 3 tablets (18.75 mg total) by mouth 2 (two) times a day. 11/01/2024 benztropine (COGENTIN) 0.5 mg tablet Take 1 tablet (0.5 mg total) by mouth at bedtime. at bedtime 10/30/2024 added in this encounter Active and Recently Administered Medications Times are shown in EDT. Scheduled Medication Order 11/18/2024 11/19/2024 11/20/2024 aspirin EC tablet 81 mg 81 mg, oral, Daily, First dose on Claudia 11/19/24 at 0900, Do not crush, chew, or split. 0953 (Given - Provider: Patricia Bell, RN) 0925 (Given - Provider: Patricia Bell, CACHORRO) atorvastatin (LIPITOR) tablet 40 mg 40 mg, oral, Nightly, First dose on Claudia 11/19/24 at 2100 2116 (Not Given - Provider: Genevieve Cardozo RN - Reason: Patient/Resident/Agent refused - education provided - Comment: pt refused said she wants a full write up on it. PRinted paperwork on medication and gave to pt and sat down to review side effects with her.) benztropine (COGENTIN) tablet 0.5 mg 0.5 mg, oral, Nightly, First dose on Sat11/18/24 at 2100 2232 (Given - Provider: Virginia Mendoza RN) 2118 (Given - Provider: Genevieve Cardozo, CACHORRO) carvediloL (COREG) tablet 18.75 mg 18.75 mg, oral, 2 times daily, First dose on Sat11/18/24 at 2099 2149 (Given - Provider: Kathy Lopez, CACHORRO) 0947 (Hold - Provider: Patricia Bell RN - Reason: Other - Comment: per MD, uncontrolled BPS)2115 (Given - Provider: Genevieve Cardozo RN) 09 (Given - Provider: Patricia Bell, RN) clonazePAM (KlonoPIN) tablet 1 mg 1 mg, oral, 2 times daily, First dose on Sat11/18/24 at 2100, Hazardous Medication Intact: - Single pair of ASTM standard D6978 certified gloves - Eye/face protection if vomit or potential to spit up Manipulated: - Double pair of ASTM standard D6978 certified gloves - Eye/face protection if vomit or potential to spit up - Staff at reproductive risk must also wear a hazardous gown - Crushing must be performed in sealed closed pouch - Splitting/cutting should be performed by pharmacy, if possible 2149 (Given - Provider: Kathy Lopez RN) 0952 (Given - Provider: Patricia Bell RN)2118 (Given - Provider: Genevieve Cardozo, RN) 0925 (Given - Provider: Patricia Bell RN) folic acid (FOLVITE) tablet 1 mg 1 mg, oral, Daily, First dose on Sat11/20/24 at 0900 0922 (Not Given - Provider: Patricia Bell RN - Reason: Patient/Resident/Ag ent refused - education provided ) iopamidoL (ISOVUE-370) 370 mg iodine /mL (76 %) injection 90 mL (COMPLETED) 90 mL, intravenous, Once in imaging, Starting on Sat11/18/24 at 1437, For 1 dose 1438 (Given - Provider: Pauly North) lamoTRIgine (LaMICtal) tablet 100 mg 100 mg, oral, Daily, First dose on Sat11/18/24 at 1655 1756 (Given - Provider: Jaiden Adam RN - Comment: 1 minute off) 0953 (Given - Provider: Patricia Bell RN) 09 (Given - Provider: Patricia Bell RN) melatonin disintegrating tablet 10 mg 10 mg, oral, Nightly, First dose on Sat11/18/24 at 2100 2233 (Given - Provider: Virginia Mendoza RN) 2115 (Given - Provider: Genevieve Cardozo, CACHORRO) multivitamin tablet 1 tablet 1 tablet (1 each), oral, Daily, First dose on Sat11/20/24 at 0900 0923 (Given - Provider: Patricia Bell RN) sodium chloride 0.9 % bolus 1,000 mL (COMPLETED) 1,000 mL, intravenous, at 1,000 mL/hr, Administer over 1 Hours, Once, On Claudia 11/19/24 at 0030, For 1 dose 0033 (New Bag - Provider: Virginia Mendoza RN)0147 (Stopped - Provider: Virginia Mendoza RN) sodium chloride 0.9 % bolus 500 mL (COMPLETED) 500 mL, intravenous, at 1,000 mL/hr, Administer over 30 Minutes, Once, On Sat11/18/24 at 1542, For 1 dose 1603 (New Bag - Provider: Jaiden Adam RN)1950 (Stopped - Provider: Pennie Crissy, RN) sodium chloride 0.9 % flush 10 mL (COMPLETED) 10 mL, intravenous, Once, On Sat11/18/24 at 1439, For 1 dose 1438 (Given - Provider: Pauly North) thiamine (VITAMIN B-1) tablet 100 mg 100 mg, oral, Daily, First dose on Sat11/20/24 at 0900 0922 (Not Given - Provider: Patricia Bell RN - Reason: Patient/Resident/Ag ent refused - education provided ) PRN Medication Order 11/18/2024 11/19/2024 11/20/2024 cloNIDine (CATAPRES) tablet 0.1 mg 0.1 mg, oral, 2 times daily PRN, high blood pressure, Starting on Sat11/18/24 at 1926, ADMINISTER FOR SBP >90 LORazepam (ATIVAN) injection 1 mg 1 mg, intravenous, As needed, seizures, Starting on Sat11/18/24 at 1725, Prior to IV use, lorazepam injection should be DILUTED with an equal volume of compatible solution; Rate of administration should NOT exceed 2 mg/min. documented in this encounter Orders Medications Ordered That Phillip ht Not Have Been Administered Count Last Ordered Date First Ordered Date atorvastatin (LIPITOR) tablet 40 mg 1 11/19 folic acid (FOLVITE) tablet 1 mg 1 11/20/19 thiamine (VITAMIN B-1) tablet 100 mg 1 10/2024 cloNIDine (CATAPRES) tablet 0.1 mg 2 2024 levETIRAcetam (KEPPRA) injection 1,000 mg 1 11/18/2024 LORazepam (ATIVAN) injection 1 mg 2 025 valproate (DEPACON) 1,070 mg in sodium chloride 0.9 % 100 mL IVPB 1 11/18/2024 Consult Count Last Ordered Date First Orde red Date IP CONSULT TO NEUROLOGY 1 11/19/2024 IP CONSULT TO PSYCHIATRY 1 11/19/2024 Admission Count Last Ordered Date First Orde red Date ADMIT TO INPATIENT 1 11/18/2024 Discharge Count Last Ordered Date First Orde red Date DISCHARGE PATIENT 1 11/20/2024 documented in this encounter Care Teams Flight Kitchen Manager Relationship Specialty Start Date End Date Suzanna Cervantes MD [address] [place] [id number] PCP - General Internal Medicine 11/18/24 documented as of this encounter
[2024-11-25 05:35] VITALS: BP 160/120; PULSE 82; O2SAT 98
[2024-11-25 06:22] VITALS: BP 171/103; PULSE 126; RESP 22; TEMP 36.6; O2SAT 99; BMI 22.1
[2024-11-25 06:25] LABS: Glucose, Whole Blood 145 mg/dL (60-115)
--- NOTE | 2024-11-25 06:45 | PC.NURSE ---
pt searched and changed over to hospital attire with RN and security, belongings secured in shelf #3 in [facility]. Pt cooperative during change, needing redirection due to being hyperverbal.
--- OUTSIDE RECORDS SUMMARY | 2024-11-25 06:52 | XMS_ITS | Clinical Summary ---
Author Organization [facility] Address [address] [place] [address] Phone Care Team Providers Care Project Director Name Role Phone Suzanna Cervantes MD Primary Care Provider Allergies No known active allergies Medications benztropine (COGENTIN) 0.5 mg tablet Take 1 tablet (0.5 mg total) by mouth at bedtime. at bedtime 5 Active carvediloL (COREG) 6.25 mg tablet Take 3 tablets (18.75 mg total) by mouth 2 (two) times a day. 5 Active clonazePAM (KlonoPIN) 2 mg tablet Take 1 mg by mouth 2 (two) times a day. Active cloNIDine (CATAPRES) 0.1 mg tablet Take 1 tablet (0.1 mg total) by mouth 2 (two) times a day. 5 Active lamoTRIgine (LaMICtal) 100 mg tablet Take 1 tablet (100 mg total) by mouth 1 (one) time each day. 5 Active melatonin 10 mg capsule Take 1 capsule (10 mg total) by mouth at bedtime. at bedtime 5 Active aspirin 81 mg EC tablet Take 1 tablet (81 mg total) by mouth 1 (one) time each day. 30 each 5 12/21/19 25 Active atorvastatin (LIPITOR) 40 mg tablet Take 1 tablet (40 mg total) by mouth at bedtime. 30 each 5 12/21/19 25 Active multivitamin tablet Take 1 tablet by mouth 1 (one) time each day. 30 each 5 Active thiamine (VITAMIN B-1) 100 mg tablet Take 1 tablet (100 mg total) by mouth 1 (one) time each day. 30 tablet 5 12/21/19 25 Active aspirin 81 mg EC tablet Take 1 tablet (81 mg total) by mouth 1 (one) time each day. 30 each 5 11/21/19 25 Discontinu ed(Reorder ) atorvastatin (LIPITOR) 40 mg tablet Take 1 tablet (40 mg total) by mouth at bedtime. 30 each 5 11/21/19 25 Discontinu ed(Reorder ) multivitamin tablet Take 1 tablet by mouth 1 (one) time each day. 30 each 5 11/21/19 Discontinu ed(Reorder ) thiamine (VITAMIN B-1) 100 mg tablet Take 1 tablet (100 mg total) by mouth 1 (one) time each day. 30 tablet 5 11/21/19 Discontinu ed(Reorder ) Active Problems Problem Noted Date Diagnosed Date Seizure ([facility] V24, [facility] V28) 11/18/2024 Encounters Date Type Department Care Team Description 11/18/2024 2:10 PM EDT - 11/20/2024 9:52 AM EDT Hospital Encounter [facility] [address] [place] [id number] Cb Martinez MD [place], MD Sapna Damon, Malcolm Reis MD Aphasia (Primary Dx); Stroke-like symptoms; Seizure ([facility] V24, [facility] V28) Discharge Disposition: Home or Self Care from Last 3 Months Social History Tobacco Use Types Packs/Day Years [...] on file Sexual Orientation Not on file Obstetrics History Last Filed Vital Signs Vital Sign Reading [...] Mass Index 21.58 11/18/2024 2:15 PM EDT Plan of Treatment Health Maintenance Due Date Last Done Comments Breast Cancer Screening 1961 Colorectal Cancer Screening: Colonoscopy 1961 Cervical Cancer Screening: Pap Smear 1982 Pneumococcal Vaccine: 50+ Years (2 of 2 - PCV) 05/11/2015 05/10/2014 HIV Screening 01/14/2022 Hepatitis C Screening 01/14/2022 Medicare Annual Wellness Visit 01/14/2022 Social Influencers of Health Screening 01/14/2022 Depression Screening 02/12/2024 Influenza Vaccine (#1) 2024 , 12/10/2022, 11/05/2022, Additional history exists Hypertension/CHF/CAD Annual BMP Blood Test 11/20/2025 11/20/2024, 11/19/2024, 11/18/2024 DTaP,Tdap,and Td Vaccines (2 - Td or Tdap) 10/16/2028 10/16/2018 Cholesterol Screening (Lipid Panel) 11/18/2029 11/18/2024 Zoster Vaccines Completed 07/02/2022, 11/06/2021 RSV Immunization Adult Patients Completed 10/05/2022 COVID-19 Vaccine Completed 11/12/2023, , 01/11/2022, Additional history exists HIB Vaccines Aged Out No longer eligi [...] to complete this topic RSV Immunization Patients Under 20 months Aged Out No longer eligible based on patient's age to complete this topic Varicella Vaccines Aged Out No longer eligible based on patient's age to complete this topic Procedures Procedure Name Priority Date/Time Associated Diagnosis Comments ECG ANNOTATED 11/21/2024 MAGNESIUM Routine 11/20/2024 8:13 AM EDT BASIC METABOLIC PANEL Routine 11/20/2024 8:13 AM EDT COMPLETE BLOOD COUNT Routine 11/20/2024 8:13 AM EDT ROUTINE EEG Routine 11/19/2024 8:53 AM EDT Aphasia Seizure (CMS/HCC V24, CMS/HCC V28) VITAMIN B12 Add-On 11/19/2024 5:16 AM EDT THYROID STIMULATING HORMONE Add-On 11/19/2024 5:16 AM EDT COMPLETE BLOOD COUNT Routine 11/19/2024 5:16 AM EDT BASIC METABOLIC PANEL Routine 11/19/2024 5:16 AM EDT MR BRAIN WO CONTRAST Routine 11/18/2024 8:15 PM EDT LAMOTRIGINE LEVEL Timed 11/18/2024 5:5 5 PM EDT RHYTHM ECG, REPORT Routine 11/18/2024 3: 29 PM EDT ECG 12-LEAD STAT 11/18/2024 3:03 PM EDT PROTHROMBIN TIME WITH INR STAT 11/18/2024 2:[address] ANGIO HEAD/NECK STROKE WO AND/OR W CONTRAST STAT 11/18/2024 2:[address] HEAD STROKE WO CONTRAST STAT 11/18/2024 2:45 PM EDT HEMOGLOBIN A1C Add-On 11/18/2024 2:33 PM EDT LIPID PANEL WITH REFLEX TO DIRECT LDL Add-On 11/18/2024 2:33 PM EDT CREATINE KINASE STAT 11/18/2024 2:33 PM EDT CBC WITH AUTO DIFFERENTIAL STAT 11/18/2024 2:33 PM EDT CBC AND DIFFERENTIAL STAT 11/18/2024 2:33 PM EDT TROPONIN I HIGH SENSITIVITY STAT 11/18/2024 2:33 PM EDT COMPREHENSIVE METABOLIC PANEL STAT 11/18/2024 2:33 PM EDT from Last 3 Months Results * ECG-Annotated (11/21/2024) us Provider Onbase MD ECG ORDERABLES Final Result * Complete blood count (11/20/2024 8:13 AM EDT) Only the most recent of2 resultswithin the time period is included. WBC 6.5 4.8 - 10.8 K/mcL LAB HEMETOLOGY METHOD 11/20/2024 9:17 AM EDT [facility] RBC 4.50 3.80 - 4.80 M/mcL LAB HEMETOLOGY METHOD 11/20/2024 9:17 AM EDT [facility] Hemoglobin 13.4 11.5 - 16.0 g/dL LAB HEMETOLOGY [facility]20[facility]24 [facility] Hematocrit 38.5 35.0 - 47.0 % LAB HEMETOLOGY METHOD 11/20/2024 9:17 AM [facility] MCV 86.1 79.0 - 98.0 FL LAB HEMETOLOGY METHOD 11/20/2024 9:17 AM [facility] MCH 30.0 27.0 - 32.0 pcg LAB HEMETOLOGY METHOD 11/20/2024 9:17 AM EDT [facility] MCHC 34.8 32.0 - 37.0 g/dL LAB HEMETOLOGY METHOD 11/20/2024 9:17 AM [facility] RDW 12.3 11.0 - 15.0 % LAB HEMETOLOGY METHOD 11/20/2024 9:17 AM [facility] Platelets 305 130 - 400 K/mcL LAB HEMETOLOGY METHOD 11/20/2024 9:17 AM T [facility] MPV 9.9 7.0 - 11.0 FL LAB HEMETOLOGY METHOD 11/20/2024 9:17 AM [facility] NRBC 0.0 <1.0 % LAB HEMETOLOGY METHOD 11/20/2024 9:17 AM [facility] NRBC Absolute 0.00 <0.10 K/mcL LAB HEMETOLOGY METHOD 11/20/2024 9:17 AM T [facility] Blood Venous blood specimen / Unknown Venipuncture / Unknown 11/20/2024 8:13 AM EDT 11/20/2024 9:01 AM EDT us Dhara Mcdermott NP LAB BLOOD ORDERABLES Final Resul t [facility] [address] [place] [address], * Magnesium (11/20/2024 8:13 AM EDT) Magnesium 1.9 1.9 - 2.6 mg/dL LAB CHEMISTRY METHOD 11/20/2024 9:53 AM [facility] Blood Venous blood specimen / Unknown Venipuncture / Unknown 11/20/2024 8:13 AM EDT 11/20/2024 9:01 AM EDT us Dhara Mcdermott REPORT SPECIALIST LAB BLOOD ORDERABLES Final Resul t [facility] [address] [place] [address], * (ABNORMAL) Basic metabolic panel (11/20/2024 8:13 AM EDT) Only the most recent of2 resultswithin the time period is included. Pathologist [facility] Sodium 138 133 - 145 mmol/L LAB CHEMISTRY METHOD 11/20/2024 9:53 AM [facility] Potassium 4.0 3.5 - 5.5 mmol/L LAB CHEMISTRY METHOD 11/20/2024 9:53 AM [facility] Chloride 102 96 - 110 mmol/L LAB CHEMISTRY METHOD 11/20/2024 9:53 AM [facility] CO2 25 21 - 32 mmol/L LAB CHEMISTRY METHOD 11/20/2024 9:53 AM [facility] Anion Gap 11 3 - 11 LAB CHEMISTRY METHOD 11/20/2024 9:53 AM [facility] Glucose 162(H) 70 - 100 mg/dL LAB CHEMISTRY METHOD 11/20/2024 9:53 AM [facility] BUN 9 5 - 25 mg/dL LAB CHEMISTRY METHOD 11/20/2024 9:53 AM [facility] Creatinine 0.61 0.50 - 1.10 mg/dL LAB CHEMISTRY METHOD 11/20/2024 9:53 AM EDT [facility] eGFR 101 >=60 mL/min/1. 73m2 LAB CHEMISTRY METHOD 11/20/2024 9:53 AM EDT [facility] Comment:Calculation based on the Chronic Kidney Disease Epidemiology Collaboration (CKD-EPI) equation refit without adjustment for race. BUN/Creatinine Ratio 14.8 LAB CHEMISTRY METHOD 11/20/2024 9:53 AM EDT [facility] Calcium 9.3 8.5 - 10.5 mg/dL LAB CHEMISTRY METHOD 11/20/2024 9:53 AM EDT [facility] Blood Venous blood specimen / Unknown Venipuncture / Unknown 11/20/2024 8:13 AM EDT 11/20/2024 9:01 AM EDT us Dhara Mcdermott REPORT SPECIALIST LAB BLOOD ORDERABLES Final Resul t [facility] [address] [place] [address], [place] [phone] * ROUTINE EEG (11/19/2024 8:53 AM EDT) Narrative Moreno Reese MD - 11/19/2024 5:30 PM EDT Moreno Reese MD 11/19/2024 5:34 PM Routine EEG Date/Time: 11/19/2024 5:30 PM Performed by: Moreno Reese MD Authorized by: Dhara Mcdermott NP us Dhara Mcdermott REPORT SPECIALIST NEUROLOGY ORDERABLES Final Resul t * Thyroid stimulating hormone (11/19/2024 5:16 AM EDT) TSH 2.51 0.40 - 4.00 mcIU/mL LAB CHEMISTRY METHOD 11/19/2024 3:33 PM EDT [facility] Blood Venous blood specimen / Unknown Venipuncture / Unknown 11/19/2024 5:16 AM EDT 11/19/2024 6:19 AM EDT Dhara Mcdermott REPORT SPECIALIST LAB BLOOD ORDERABLES Final Resul t Performing Organization Address [facility] Co de Phone Number [facility] [address] [place] [address], [place] [phone] * (ABNORMAL) Vitamin B12 (11/19/2024 5:16 AM EDT) Vitamin B-12 1,073(H) 250 - 900 pcg/mL LAB CHEMISTRY METHOD 11/19/2024 3:53 PM EDT [facility] Blood Venous blood specimen / Unknown Venipuncture / Unknown 11/19/2024 5:16 AM EDT 11/19/2024 6:19 AM EDT us Dhara Mcdermott REPORT SPECIALIST LAB BLOOD ORDERABLES Final Resul t Performing Organization Address [facility] de Phone Number [facility] [address] [place] [address], [place] [phone] * MR Brain wo Contrast (11/18/2024 8:15 [...] Quigley MD on 11/18/2024 20:54:22 Jose JOHNSON IMMelody MRI PROCEDURES Final Result * Lamotrigine level (11/18/2024 5:55 PM EDT) Lamotrigine (Lamictal) Level 2.4 2.0 - 15.0 ug/mL 11/23/2024 11:11 AM EDT [facility] Comment: Lamotrigine toxic level: >20 ug/mL The reference range is not well established. It may be as wide as 1 - 20 ug/mL. If applicable, any drug confirmation testing reported here was developed and the performance characteristics determined by [facility]. This confirmation testing has not been cleared or approved by the FDA. The laboratory is regulated under CLIA as qualified to perform high-complexity testing. This test is used for patient testing purposes. It should not be regarded as investigational or for research. Test performed at [facility], [address] , [place] [address] Melita Martins MD, PhD - Reading Specialist Blood Venous blood specimen / Unknown Venipuncture / Unknown 11/18/2024 5:55 PM EDT 11/18/2024 6:11 PM EDT us Cb Martinez MD LAB BLOOD ORDERABLES Final [place] [place] [address] * (ABNORMAL) RHYTHM ECG, REPORT (11/18/2024 3:29 PM EDT) Narrative Cb Martinez MD - 11/18/2024 3:29 PM EDT Cb Martinez MD 11/19/2024 11:58 AM ECG Rhythm Interpretation and Report Date/Time: 11/18/2024 3:29 PM Performed by: Cb Martinez MD Authorized by: Cb Martinez MD ECG interpreted by ED Physician in the absence of a fruit dryer: yes Interpretation: Interpretation: abnormal Details: Normal sinus rhythm with a ventricular rate of 85 bpm. Fusion complexes present and PACs. Normal WV, QRS, QTc, axis. QTc, axis. QRS slightly wide at 118 ms. No acute ischemic changes. No recent EKGs to compare to, EKG from October 2022 showed sinus tachycardia, does appear no QRS prolongation, no new PACs. us Cb Martinez MD ECG ORDERABLES Final Result * 12-Lead ECG (11/18/2024 3:03 PM EDT) Pathologist [facility] Ventricular Rate ECG 85 BPM GEMUSE Atrial Rate 85 BPM GEMUSE P-R Interval 178 ms GEMUSE QRS Duration 118 ms GEMUSE Q-T Interval 378 ms GEMUSE QTc 449 ms GEMUSE P Wave [place] 56 degrees GEMUSE R [place] 19 degrees GEMUSE T [place] 108 degrees GEMUSE ECG Interpretation Sinus rhythm with Fusion complexes and Premature atrial complexes Incomplete left bundle branch block Abnormal ECG When compared with ECG of 25-OCT-2022 18:22, Incomplete left bundle branch block is present Confirmed by Otoniel COTTRELL YUFENG ([id number]) on 11/19/2024 7:56:42 AM GEMUSE 11/18/2024 3:03 PM EDT 11/19/2024 7:56 AM EDT us Cb Martinez MD ECG ORDERABLES Final Result Performing Organization Address City/[facility] Co de Phone Number GEMUSE * Prothrombin time with INR (11/18/2024 2:58 PM EDT) Protime 12.6 10.6 - 13.9 sec LAB COAGULATION METHOD 11/18/2024 3:34 PM EDT [facility] INR 1.0 LAB COAGULATION METHOD 11/18/2024 3:34 PM EDT [facility] Blood Venous blood specimen / Unknown Venipuncture / Unknown 11/18/2024 2:58 PM EDT 11/18/2024 3:18 PM EDT Cb Martinez MD LAB BLOOD ORDERABLES Final Res ult Performing Organization Address [facility] de Phone Number [facility] [address] [place] [address], [place] [phone] * CT Head Stroke wo Contrast (11/18/2024 2:45 PM EDT) Anatomical Region Laterality Modality Head and Neck Computed Tomogra phy 11/18/2024 2:46 PM EDT Impressions 11/18/2024 2:48 PM EDT No intracranial hemorrhage. Findings communicated to Dr. Martinez at approximately 2:47 via secure text. -------- FINAL REPORT -------- Dictated By: Татяьна Obrien Dictated Date: 11/18/2024 14:46 ET Assigned Physician: Татьяна Obrien Reviewed and Electronically Signed By: Татьяна Obrien Signed Date: 11/18/2024 14:48 ET Workstation ID: [id number] Transcribed By: Self Edit Transcribed Date: 11/18/2024 [...] Signed Date: 11/18/2024 14:48 ET Workstation ID: [id number] Transcribed By: Self Edit Transcribed Date: 11/18/2024 14:46 ET Cb Martinez MD [facility] [place] PROCEDURES Final Result * CT Angio Head/Neck Stroke wo and/or [...] Signed Date: 11/18/2024 15:10 ET Workstation ID: [id number] Transcribed By: Self Edit Transcribed Date: 11/18/2024 15:04 ET Narrative 11/18/2024 3:10 PM EDT PROCEDURE: CTA HEAD AND NECK INDICATION: aphasia TECHNIQUE: CTA of the head and neck with intravenous contrast. Multiplanar reformats. The examination was performed utilizing dose reduction techniques.3-D or MIP images were produced with postprocessing on an independent computer workstation. 90cc Omnipaque 370 injected. Scan was analyzed using [email or web address] AI based computer aided triage software. Total [...] is patent. Vertebrobasilar system is patent. Proximal passenger coach driver are patent. Major dural venous sinuses opacify [...] 90cc Omnipaque 370 injected. Scan wasanalyzed using [email or web address] AI based computer aided triage software. Total [...] is patent. Vertebrobasilar system is patent. Proximal passenger coach driver are patent. Major dural venous sinuses opacify normally with contrast. Extracranial structures are unremarkable. Degenerative changes in thebones. IMPRESSION: No evidence of hemodynamically significant stenosis in the head or neck. -------- FINAL REPORT -------- Dictated By: Татьяна Obrien Dictated Date: 11/18/2024 15:04 ET Assigned Physician: Татьяна Obrien Reviewed and Electronically Signed By: Татьяна Obrien Signed Date: 11/18/2024 15:10 ET Workstation ID: [id number] Transcribed By: Self Edit Transcribed Date: 11/18/2024 15:04 ET Cb Martinez MD IMG CT PROCEDURES Final Result * Troponin I High Sensitivity (11/18/2024 2:33 PM EDT) [facility] High Sensitivity Troponin I 7 <=54 ng/L LAB CHEMISTRY METHOD 11/18/2024 3:40 PM EDT [facility] Blood Venous blood specimen / Unknown Venipuncture / Unknown 11/18/2024 2:33 PM EDT 11/18/2024 3:05 PM EDT Narrative [facility] - 11/18/2024 3:40 PM EDT High levels of biotin in samples may falsely decrease hsTroponin values. Use caution when interpreting hsTroponin results in patients taking biotin who exhibit renal impairment (eGFR <60) or in patients taking more than 20 mg/day of biotin. us Cb Martinez MD LAB BLOOD ORDERABLES Final Res ult [facility] [address] [place] [address], * (ABNORMAL) Lipid panel with reflex to direct LDL (11/18/2024 2:33 PM EDT) Pathologist [facility] Cholesterol 229(H) 0 - 200 mg/dL LAB CHEMISTRY METHOD 11/18/2024 7:49 PM EDT [facility] Triglycerides 91 0 - 150 mg/dL LAB CHEMISTRY METHOD 11/18/2024 7:49 PM EDT [facility] HDL 68 >=40 mg/dL LAB CHEMISTRY METHOD [facility]/18[facility]2024 7:[facility] LDL Calculated 143(H) 0 - 100 mg/dL LAB CHEMISTRY METHOD 11/18/2024 7:49 PM EDT [facility] Comment:Estimated LDL Calcul ated using equation: Total cholesterol - HDL cholesterol - (Triglycerides/5) VLDL Cholesterol Trey 18.2 mg/dL LAB CHEMISTRY METHOD 11/18/2024 7:49 PM EDT [facility] Non HDL Chol. (LDL+VLDL) 161(H) <145 mg/dL LAB CHEMISTRY METHOD 11/18/2024 7:49 PM EDT [facility] Chol/HDL Ratio 3.4 0.0 - 4.4 LAB CHEMISTRY METHOD 11/18/2024 7:49 PM T [facility] Blood Venous blood specimen / Unknown Venipuncture / Unknown 11/18/2024 2:33 PM EDT 11/18/2024 3:05 PM EDT us Jose JOHNSON LAB BLOOD ORDERABLES Sun l Result [facility] [address] [place] [address], * CBC auto differential (11/18/2024 2:33 PM EDT) WBC 8.2 4.8 - 10.8 K/[facility] LAB HEMETOLOGY METHOD 11/18/2024 3:22 PM EDT [facility] RBC 4.80 3.80 - 4.80 M/[facility] LAB HEMETOLOGY METHOD 11/18/2024 3:22 PM EDT [facility] Hemoglobin 14.8 11.5 - 16.0 g/dL LAB HEMETOLOGY METHOD 11/18/2024 3:22 PM EDT [facility] Hematocrit 41.5 35.0 - 47.0 % LAB HEMETOLOGY METHOD 11/18/2024 3:22 PM [facility] MCV 86.3 79.0 - 98.0 FL LAB HEMETOLOGY METHOD 11/18/2024 3:22 PM [facility] MCH 30.8 27.0 - 32.0 pcg LAB HEMETOLOGY METHOD 11/18/2024 3:22 PM [facility] MCHC 35.7 32.0 - 37.0 g/dL LAB HEMETOLOGY METHOD 11/18/2024 3:22 PM [facility] RDW 11.9 11.0 - 15.0 % LAB HEMETOLOGY METHOD 11/18/2024 3:22 PM [facility] Platelets 355 130 - 400 K/mcL LAB HEMETOLOGY METHOD 11/18/2024 3:22 PM [facility] MPV 9.4 7.0 - 11.0 FL LAB HEMETOLOGY METHOD 11/18/2024 3:22 PM [facility] NRBC 0.0 <1.0 % LAB HEMETOLOGY METHOD 11/18/2024 3:22 PM [facility] NRBC Absolute 0.00 <0.10 K/mcL LAB HEMETOLOGY METHOD 11/18/2024 3:[facility] Neutrophils Relative 74.2 % LAB HEMETOLOGY METHOD 11/18/2024 3:22 PM [facility] Lymphocytes Relative 18.4 % LAB HEMETOLOGY METHOD 11/18/2024 3:22 PM [facility] Monocytes Relative 5.8 % LAB HEMETOLOGY METHOD 11/18/2024 3:22 PM EDT [facility] Eosinophils Relative 0.6 % LAB HEMETOLOGY METHOD 11/18/2024 3:22 PM EDT [facility] Basophils Relative 0.6 % LAB HEMETOLOGY METHOD 11/18/2024 3:22 PM EDT [facility] Immature Granulocytes Relative 0.4 % LAB HEMETOLOGY METHOD 11/18/2024 3:22 PM EDT [facility] Neutrophils Absolute 6.10 1.50 - 7.00 K/mcL LAB HEMETOLOGY METHOD 11/18/2024 3:22 PM EDT [facility] Lymphocytes Absolute 1.51 1.00 - 5.00 K/mcL LAB HEMETOLOGY METHOD 11/18/2024 3:22 PM EDT [facility] Monocytes Absolute 0.48 0.20 - 1.00 K/mcL LAB HEMETOLOGY METHOD 11/18/2024 3:22 PM EDT [facility] Eosinophils Absolute 0.05 0.00 - 0.50 K/mcL LAB HEMETOLOGY METHOD 11/18/2024 3:22 PM EDT [facility] Basophils Absolute 0.05 0.00 - 0.20 K/mcL LAB HEMETOLOGY METHOD 11/18/2024 3:22 PM EDT [facility] Immature Granulocytes Absolute 0.03 0.00 - 0.03 K/mcL LAB HEMETOLOGY METHOD 11/18/2024 3:22 PM EDT [facility] Blood Venous blood specimen / Unknown Venipuncture / Unknown 11/18/2024 2:33 PM EDT 11/18/2024 3:05 PM EDT us Cb Martinez MD LAB BLOOD ORDERABLES Final Res ult [facility] [address] [place] [address], * Hemoglobin A1c (11/18/2024 2:33 PM EDT) [facility] Hemoglobin A1C 5.2 <6.5 % LAB CHEMISTRY METHOD 11/18/2024 10:20 PM EDT [facility] Mean Bld Glu Estim. 103 mg/dL LAB CHEMISTRY METHOD 11/18/2024 10:20 PM EDT [facility] Blood Venous blood specimen / Unknown Venipuncture / Unknown 11/18/2024 2:33 PM EDT 11/18/2024 3:05 PM EDT Jose JOHNSON LAB BLOOD ORDERABLES Sun l Result Performing Organization Address [facility]/ZIP Co de Phone Number [facility] [address] [place] [address], * Cardiac Enzymes - CPK (11/18/2024 2:33 PM EDT) [facility] Total CK 45 22 - 269 unit/L LAB CHEMISTRY METHOD 11/18/2024 3:38 PM EDT [facility] Blood Venous blood specimen / Unknown Venipuncture / Unknown 11/18/2024 2:33 PM EDT 11/18/2024 3:05 PM EDT Cb Martinez MD LAB BLOOD ORDERABLES Final Res ult [facility] [address] [place] [address], [place] [phone] * (ABNORMAL) Comprehensive Metabolic Panel (CMP) (11/18/2024 2:33 PM EDT) [facility] Sodium 130(L) 133 - 145 mmol/L LAB CHEMISTRY METHOD 11/18/2024 3:37 PM EDT [facility] Potassium 4.1 3.5 - 5.5 mmol/L LAB CHEMISTRY METHOD 11/18/2024 3:37 PM [facility] Chloride 97 96 - 110 mmol/L LAB CHEMISTRY METHOD 11/18/2024 3:37 PM [facility] CO2 25 21 - 32 mmol/L LAB CHEMISTRY METHOD 11/18/2024 3:37 PM [facility] Anion Gap 8 3 - 11 LAB CHEMISTRY METHOD 11/18/2024 3:37 PM [facility] Glucose 118(H) 70 - 100 mg/dL LAB CHEMISTRY METHOD 11/18/2024 3:37 PM [facility] BUN 16 5 - 25 mg/dL LAB CHEMISTRY METHOD 11/18/2024 3:37 PM [facility] Creatinine 0.67 0.50 - 1.10 mg/dL LAB CHEMISTRY METHOD 11/18/2024 3:37 PM [facility] eGFR 98 >=60 mL/min/1. 73m2 LAB CHEMISTRY METHOD 11/18/2024 3:37 PM [facility] Comment:Calculation based on the Chronic Kidney Disease Epidemiology Collaboration (CKD-EPI) equation refit without adjustment for race. BUN/Creatinine Ratio 23.9 LAB CHEMISTRY METHOD 11/18/2024 3:37 PM [facility] Calcium 9.7 8.5 - 10.5 mg/dL LAB CHEMISTRY METHOD 11/18/2024 3:37 PM [facility] AST (SGOT) 27 10 - 42 unit/L LAB CHEMISTRY METHOD 11/18/2024 3:37 PM [facility] ALT (SGPT) 41 10 - 60 unit/L LAB CHEMISTRY METHOD 11/18/2024 3:37 PM [facility] Alkaline Phosphatase 65 42 - 121 unit/L LAB CHEMISTRY METHOD 11/18/2024 3:37 PM [facility] Total Protein 7.5 6.0 - 8.0 g/dL LAB CHEMISTRY METHOD 11/18/2024 3:37 PM EDT [facility] Albumin 4.0 3.2 - 5.0 g/dL LAB CHEMISTRY METHOD 11/18/2024 3:37 PM EDT [facility] Total Bilirubin 0.6 0.0 - 1.4 mg/dL LAB CHEMISTRY METHOD 11/18/2024 3:37 PM EDT [facility] Blood Venous blood specimen / Unknown Venipuncture / Unknown 11/18/2024 2:33 PM EDT 11/18/2024 3:05 PM EDT us Cb Martinez MD LAB BLOOD ORDERABLES Final Res ult [facility] [address] [place] [address], from Last 3 Months Insurance [employer] Member Subscriber Plan / Payer (Ef fective 2016-Present) Name:CARYN BAI Relation to Subscriber:Self Name:Caryn Bai Payer ID:[id number] Group ID:[id number] Type:Not on file Address: [place] [address] [address] [phone] Advance Directives * Full Code - Default (Latest Code Status on File) Date Activated Date Inactivated Comments 11/18/2024 4:54 PM 11/20/2024 11:57 AM This is or travis is used when code status has not been discussed with the patient, or code status is otherwise unknown/unconfirmed To update the patient's code status, place a code status order. Do not modify or discontinue any currently active code status orders. Care Teams Project Director Relationship Specialty Start Date End Date Suzanna Cervantes MD [address] [place] [address] PCP - General Internal Medicine 11/18/24
--- OUTSIDE RECORDS SUMMARY | 2024-11-25 06:52 | XMS_ITS | Clinical Summary ---
Author Organization [facility] Address [address] [phone] Phone Care Team Providers Care Dyed Raw Stock Blower Feeder Name Role Phone Jenniffer Cervantes MD Primary Care Provider [phone] Allergies No known active allergies Medications thiamine [...] Visit [facility] [address] [phone] Samuel Espinal MD [address] [phone] Health Maintenance Due Date Last Done Comments [...] this topic Insurance ([id number]) ([id number]) Care Teams Dyed Raw Stock Blower Feeder Relationship Specialty Start Date End Date Jenniffer Cervantes MD [address] [place] [address] PCP - General Internal Medicine 05/16/21
--- NOTE | 2024-11-25 07:50 | ED.PSYCH ---
HPI - Psych General Chief Complaint: Psychiatric Symptoms Stated Complaint: HYPERTENSION/BIPOLAR SCHIZOPHENIA/HX SEIZURES Time Seen by Provider: 11/25/24 07:31 Source: patient and RN notes reviewed Mode of arrival: ambulatory Limitations: no limitations History of Present Illness ED Provider: Grace Murrell PA-C HPI Narrative: This is a 64-year-old female, with a past medical history of PTSD, bipolar disorder, non-epileptic seizures who presents to the ER from home with brother concerns of patient with erratic behavior. Her brother had called 911 as patient was at erratically behaving and was requesting help. On arrival, per EMS, blood sugar was 80. Patient has a history of bipolar disorder and has not been taking her medications. According to brother, patient has not been eating or sleeping and has been up all hours of the night slamming doors. Patient tangential speech and having a flight of ideas type like conversation, stating multiple things including that she has 5 medical conditions, and reports that she is concerned about seizures, she states that she has not had a seizure in several years. She also reports that she has not been taking her medications. She states that she has been eating. She does admit to eating marijuana candies to keep her sugar up. She denies any suicidal ideation, does have thoughts of harming her brother. No other complaints or concerns at this time. MD complaint: altered mental status Onset (ago): day(s) Duration: constant History of same: Yes Relieving factors: none Exacerbating factors: none Associated psychiatric symptoms: none Associated symptoms: denies other symptoms Treatments prior to arrival: none Related Data Home Medications ?Medication ?Instructions ?Recorded ?Confirmed melatonin 3 mg tablet 10 mg PO BEDTIME 03/07/23 11/25/24 benztropine 0.5 mg tablet 0.5 mg PO BEDTIME 10/23/23 11/25/24 lamotrigine 25 mg tablet (Lamictal) 100 mg PO DAILY 10/27/24 11/25/24 atorvastatin 40 mg tablet 40 mg PO DAILY 11/25/24 11/25/24 docusate sodium 100 mg capsule 100 mg PO DAILY PRN Constipation 11/25/24 11/25/24 thiamine HCl (vitamin B1) 100 mg 100 mg PO DAILY 11/25/24 11/25/24 tablet Previous Rx's ?Medication ?Instructions ?Recorded clonidine HCl 0.1 mg tablet 0.1 mg PO BID PRN Anxiety #3 tabs 02/18/23 multivitamin (Daily-Ni tablet) 1 tab PO DAILY #30 tabs 02/18/23 clonazepam 1 mg tablet (Klonopin) 1 mg PO BID #14 tabs 03/18/23 carvedilol 6.25 mg tablet 18.75 mg PO BID 30 days #180 tabs 09/11/24 Allergies Allergy/AdvReac Type Severity Reaction Status Date / Time olanzapine AdvReac Severe visual Verified 11/25/24 06:23 changes carbamazepine (From Tegretol) AdvReac Intermediate Hyponatremi Verified 11/25/24 06:23 a divalproex sodium (From AdvReac Mild hyperammone Verified 11/25/24 06:23 Depakote) yoan gabapentin AdvReac Mild Unknown Verified 11/25/24 06:23 trazodone AdvReac Mild groggy Verified 11/25/24 06:23 Review of Systems Review of Systems: Constitutional : No Fever, No Chills ENT/Mouth : No sore throat, No Rhinorrhea Eyes: No Eye Pain, No Swelling, No Redness Cardiovascular : No Chest Pain, No SOB Respiratory : No Cough, No Sputum Gastrointestinal : No Nausea, No Vomiting, No Diarrhea, No abdominal Pain Genitourinary : No Dysuria, No Hematuria Musculoskeletal : No joint pain, No Myalgias, No Joint Swelling Skin : No Skin Lesions Neuro : No Weakness, No Numbness, No Headache All other systems reviewed and are negative Yes all other systems are reviewed and are negative Constitutional: Constitutional: Reports as per [facility] Past Medical History Medical History Labile hypertension Leiomyoma PTSD (post-traumatic stress disorder) Bipolar I disorder Tinea unguium History of psychogenic nonepileptic seizure Impaired fasting glucose Dyslipidemia (high LDL; low HDL) Hx of suicide attempt On beta baldemar at home Arthritis Anxiety Diastasis recti Umbilical hernia Compression fracture of L1 lumbar vertebra Dupuytren's contracture of left hand Lumbar disc herniation Essential hypertension Ventral hernia Urinary incontinence Surgical History H/O shoulder surgery Hx of elbow surgery Hx of repair of left rotator cuff Hx of colonoscopy History of lumbar fusion Family History Family History Father Diabetes mellitus Mother COPD (chronic obstructive pulmonary disease) Sister Diabetes mellitus Glaucoma Other Mental health disorder Substance use disorder Social History Social History Household Members: Other Household Members Other:: brother Housing: House Are you a primary primary care sales representative to a significant other at home: No Do you presently have visiting nurse or other home services: No Alcohol intake: current Alcohol intake frequency: holidays/special occasions only Patient Tobacco Use Status: Former Tobacco user Tobacco use type: Cigarette Cigarette Packs Per Day: 1 Cigarettes Per Day: 20.0 e-Cigarette/Vaping Use: Never Used Second Hand Smoke Exposure: No Substance Use Type: Marijuana Advance Directives: Yes Advance Directives on File: Yes Advance Directives Date on File: 11/26/22 service: No Current occupational status: disabled Sexual orientation: Straight/Heterosexual Cognitive needs: No Hearing needs: No Vision needs: No Physical Exam Vital Signs: Vital Signs: Last Vital Signs Temp 97.8 F 11/25/24 11:20 Pulse 106 H 11/25/24 11:20 Resp 16 11/25/24 11:20 BP 147/87 H 11/25/24 11:20 Pulse Ox 94 11/25/24 11:20 O2 Del Method Room Air 11/25/24 11:20 BMI result Body Mass Index 22.1 Psych: Appearance: disheveled Speech and movement: Pressured speech present and Psychomotor agitation in speech present Affect: Anxious affect present Attitude: cooperative Thought process: Confabulating thought process present, Flight of ideas present and Racing thoughts present Thought content: Paranoid delusions present Insight: Limited insight present (Psych) Judgement: Limited judgement present (Psych) Medications Administered Generic Name Dose Route Start Last Admin Trade Name Freq PRN Reason Stop Dose Admin Sodium Chloride 1,000 mls @ 75 mls/hr 11/25/24 10:45 11/25/24 11:30 Ns IVCONT 75 mls/hr .[id number] ADAN Administration Discontinued Medications Generic Name Dose Route Start Last Admin Trade Name Freq PRN Reason Stop Dose Admin Magnesium Sulfate 2 gm in 50 mls @ 150 mls/hr 11/25/24 10:40 11/25/24 12:11 Magnesium Sulfate/H2o IV 11/25/24 10:59 Infused ONCE ONE Infusion Lorazepam 2 mg 11/25/24 07:56 11/25/24 08:42 Lorazepam 1 Mg Tablet PO 11/25/24 07:57 2 mg ONCE ONE Administration Medical Decision Making Medical Decision Making [facility] Narrative: This is a 64-year-old female, with a past medical history of PTSD, bipolar disorder, non-epileptic seizures who presents to the ER from her home. On arrival, patient is talking and pressured speech, acting erratically, dentures periodically falling out of her mouth while speaking. Patient tachycardic at 126, however patient is very very active, this is likely the source of her tachycardia. Differential diagnoses include paranoia, delusions, rj, bipolar disorder. Electrolyte derangement. 10:44 AM 11/25/2024 (Grace Murrell PA-C): Labs returned, she does have mild leukocytosis at 11.8, hyponatremia at 127, chloride of 95, carbon dioxide of 16. Magnesium of 1.5, CPK at 329. Urine drug screen positive for benzos and marijuana. Discussed case with my attending physician, Dr. Jorge. Given hyponatremia, and ?rj, this may be contributing to her current mental status. Unclear. Psych evaluated patient, she does meet inpatient level of care however given hyponatremia and hypomagnesemia, initial EKG had a lot of artifact therefore repeat was obtained. Second troponin revealing sinus tachycardia at a ventricular rate of 102 beats per minute, RI interval 166, QT QTC 368/479, no STEMI. Difference in appearance of EKG from previous that was performed in January 04, 2023. Troponins are flat therefore EKG changes are old. Discussed case with my attending physician, no additional workup warranted. Will attempt to to hospitalist for hyponatremia. Differential Diagnosis Differential Diagnoses: The differential diagnosis associated with the presentation includes Lab Data [facility] Lab Attestation statement: I reviewed the patient's lab results. See [facility] 11/25/24 09:01 11/25/24 09:01 Labs: Lab Results 11/25/24 11/25/24 11/25/24 Range/Units 06:21 07:36 09:01 WBC 11.8 H (4.8-10.8) X10*3/uL RBC 4.32 (4.20-5.50) X10*6/uL Hgb 13.1 (12.0-16.0) g/dl Hct 36.7 L (37.0-47.0) % MCV 85.0 (80.0-98.0) fL MCH 30.3 (27.0-33.0) pg MCHC 35.7 H (31.0-35.0) g/dl RDW 11.8 (11.0-16.0) % Plt Count 301 (160-400) X10*3/uL MPV 9.4 (9.4-12.3) fL Immature Gran % (Auto) 0.3 (0.0-0.4) % Neut % (Auto) 78.8 H (45-73) % Lymph % (Auto) 15.3 L (20-40) % Union % (Auto) 5.1 (2-11) % Eos % (Auto) 0.1 (0-4) % Baso % (Auto) 0.4 (0-2) % Lymph # (Auto) 1.8 (1.2-4.9) X10*3/uL Union # (Auto) 0.6 (0.1-1.2) X10*3/uL Eos # (Auto) 0.0 (0.0-0.4) X10*3/uL Baso # (Auto) 0.1 (0.0-0.2) X10*3/uL Abs Immat Gran (auto) 0.03 (0.00-0.03) X10*3/uL Absolute Neuts (auto) 9.3 H (2.0-8.3) x10*3/uL Absolute Nucleated RBC 0.000 (0.0-0.012) X10*3/uL Nucleated RBC % (auto) 0.0 (0.0-0.2) /100WBC Sodium 127 L (135-145) mmol/L Potassium 3.8 (3.3-5.1) mmol/L Chloride 95 L (96-108) mmol/L Carbon Dioxide 16 L (22-29) mmol/L Anion Gap 20 (12-20) BUN 14 (9-16) mg/dL Creatinine 0.71 (0.5-1.4) mg/dL Estim Creat Clear Calc 64.1 Estimated GFR > 60 POC Glucose 145 H (60-115) mg/dL Random Glucose 109 (60-115) mg/dL Calcium 9.2 D (8.4-10.2) mg/dL Magnesium 1.5 L (1.6-2.6) mg/dL Total Bilirubin 0.6 (0.0-1.0) mg/dL AST 36 H (5-31) U/L ALT 31 (0-31) U/L Alkaline Phosphatase 57 (39-117) U/L Total Creatine Kinase 329 H (26-140) U/L Troponin I High Sens 32.9 H (<3.5-17.0) ng/L Total Protein 6.7 (6.5-8.0) g/dL Albumin 4.3 (3.5-5.0) g/dL Urine Opiates Screen Not Detected (Not Detect) Ur Buprenorphine Scrn Not Detected (Not Detect) ng/mL Ur Oxycodone Screen Not Detected (Not Detect) ng/mL Urine Methadone Screen Not Detected (Not Detect) ng/mL Urine Fentanyl Screen Not Detected (Not Detect) Ur Barbiturates Screen Not Detected (Not Detect) Ur Phencyclidine Scrn Not Detected (Not Detect) Ur Amphetamines Screen Not Detected (Not Detect) U Benzodiazepines Scrn POSITIVE H (Not Detect) Urine Cocaine Screen Not Detected (Not Detect) U Marijuana (THC) Screen POSITIVE H (Not Detect) Ethyl Alcohol < 10 mg/dL 11/25/24 Range/Units 11:36 WBC (4.8-10.8) X10*3/uL RBC (4.20-5.50) X10*6/uL Hgb (12.0-16.0) g/dl Hct (37.0-47.0) % MCV (80.0-98.0) fL MCH (27.0-33.0) pg MCHC (31.0-35.0) g/dl RDW (11.0-16.0) % Plt Count (160-400) X10*3/uL MPV (9.4-12.3) fL Immature Gran % (Auto) (0.0-0.4) % Neut % (Auto) (45-73) % Lymph % (Auto) (20-40) % Union % (Auto) (2-11) % Eos % (Auto) (0-4) % Baso % (Auto) (0-2) % Lymph # (Auto) (1.2-4.9) X10*3/uL Union # (Auto) (0.1-1.2) X10*3/uL Eos # (Auto) (0.0-0.4) X10*3/uL Baso # (Auto) (0.0-0.2) X10*3/uL Abs Immat Gran (auto) (0.00-0.03) X10*3/uL Absolute Neuts (auto) (2.0-8.3) x10*3/uL Absolute Nucleated RBC (0.0-0.012) X10*3/uL Nucleated RBC % (auto) (0.0-0.2) /100WBC Sodium (135-145) mmol/L Potassium (3.3-5.1) mmol/L Chloride (96-108) mmol/L Carbon Dioxide (22-29) mmol/L Anion Gap (12-20) BUN (9-16) mg/dL Creatinine (0.5-1.4) mg/dL Estim Creat Clear Calc Estimated GFR POC Glucose (60-115) mg/dL Random Glucose (60-115) mg/dL Calcium (8.4-10.2) mg/dL Magnesium (1.6-2.6) mg/dL Total Bilirubin (0.0-1.0) mg/dL AST (5-31) U/L ALT (0-31) U/L Alkaline Phosphatase (39-117) U/L Total Creatine Kinase (26-140) U/L Troponin I High Sens 29.1 H (<3.5-17.0) ng/L Total Protein (6.5-8.0) g/dL Albumin (3.5-5.0) g/dL Urine Opiates Screen (Not Detect) Ur Buprenorphine Scrn (Not Detect) ng/mL Ur Oxycodone Screen (Not Detect) ng/mL Urine Methadone Screen (Not Detect) ng/mL Urine Fentanyl Screen (Not Detect) Ur Barbiturates Screen (Not Detect) Ur Phencyclidine Scrn (Not Detect) Ur Amphetamines Screen (Not Detect) U Benzodiazepines Scrn (Not Detect) Urine Cocaine Screen (Not Detect) U Marijuana (THC) Screen (Not Detect) Ethyl Alcohol mg/dL Radiology Impression Discussion of test interpretation with radiology: I have reviewed the radiologist's reading. Discharge Plan Discharge Clinical Impression: Rj, Hyponatremia Prescriptions: No Action carvedilol 6.25 mg tablet 18.75 mg PO BID 30 Days Qty: 180 1RF Protocol: Hold for SBP/HR < HOLD for SBP < : 90 HOLD for HR < : 60 atorvastatin 40 mg tablet 40 mg PO DAILY thiamine HCl (vitamin B1) 100 mg tablet 100 mg PO DAILY docusate sodium 100 mg capsule 100 mg PO DAILY PRN (Reason: Constipation) multivitamin [Daily-Ni] Tablet 1 tab PO DAILY Qty: 30 0RF clonidine HCl 0.1 mg Tablet 0.1 mg PO BID PRN (Reason: Anxiety) Qty: 3 0RF Protocol: Hold for SBP< HOLD for SBP < : 90 clonazepam [Klonopin] 1 mg tablet 1 mg PO BID Qty: 14 0RF benztropine 0.5 mg tablet 0.5 mg PO BEDTIME melatonin 3 mg tablet 10 mg PO BEDTIME lamotrigine [Lamictal] 25 mg tablet 100 mg PO DAILY Interventions: [place]-Suicide Risk Severity Scale Last Done: 11/25/24 06:47 Print Language: Kyrgyz
[2024-11-25 07:53] LABS: Cannabinoid Screen Urine POSITIVE (Not Detect)
--- NOTE | 2024-11-25 07:55 | ECG_ITS ---
Test Reason : MED CLEARANCE Blood Pressure : */* mmHG Vent. Rate : 115 BPM Atrial Rate : 115 BPM P-R Int : 160 ms QRS Dur : 104 ms QT Int : 346 ms P-R-T Axes : 70 7 156 degrees QTcB Int : 478 ms Sinus tachycardia with Premature supraventricular complexes Septal infarct , age undetermined ST & T wave abnormality, consider lateral ischemia Abnormal ECG When compared with ECG of 04-Jan-2023 10:43, Significant changes have occurred Referred By: Grace Murrell Electronically Signed By: Bipin Pang
[2024-11-25 09:13] LABS: MANUAL DIFF FLAG NO
[2024-11-25 09:19] LABS: Hematocrit 36.7 % (37.0-47.0); Hemoglobin 13.1 g/dl (12.0-16.0); Imm Gran Abs Auto 0.03 X10*3/uL (0.00-0.03); Imm Gran Pct Auto 0.3 % (0.0-0.4); Lymphocytes Absolute Auto 1.8 X10*3/uL (1.2-4.9); Mean Corpuscular HGB Conc 35.7 g/dl (31.0-35.0); Mean Corpuscular Hemoglobin 30.3 pg (27.0-33.0); Mean Corpuscular Volume 85.0 fL (80.0-98.0); NRBC Abs Auto 0.000 X10*3/uL (0.0-0.012); NRBC Pct Auto 0.0 /100WBC (0.0-0.2); Platelet Count 301 X10*3/uL (160-400); Red Blood Count 4.32 X10*6/uL (4.20-5.50); White Blood Count 11.8 X10*3/uL (4.8-10.8)
[2024-11-25 09:27] VITALS: BP 153/33; PULSE 115; RESP 20; TEMP 36.7; O2SAT 96
[2024-11-25 09:33] LABS: Magnesium 1.5 mg/dL (1.6-2.6)
[2024-11-25 09:34] LABS: Alanine Aminotransferase 31 U/L (0-31); Albumin Level 4.3 g/dL (3.5-5.0); Alkaline Phosphatase 57 U/L (39-117); Anion Gap 20 (12-20); Aspartate Amino Transferase 36 U/L (5-31); Blood Urea Nitrogen 14 mg/dL (9-16); Calcium 9.2 mg/dL (8.4-10.2); Carbon Dioxide 16 mmol/L (22-29); Chloride 95 mmol/L (96-108); Creatinine Clr Calc Pharmacy 64.1; Estimated Glomerular Filt Rate > 60; Potassium 3.8 mmol/L (3.3-5.1); Sodium 127 mmol/L (135-145); Total Protein 6.7 g/dL (6.5-8.0)
--- NOTE | 2024-11-25 10:03 | MHC.CARE ---
Pt meets the criteria for IPLOC and will be an inpatient psychiatric bed search. Pt is on a Section 12a. ED provider in agreement.
--- NOTE | 2024-11-25 10:40 | PC.NURSE ---
med rec - pt know she takes lamictal and colace. Her brother administers her medications. She does not want this video games storywriter to call him with medication questions. med rec completed with pharmacy fill claims first per request of shola. would benifit from review. at this point pt might be admitted first to medical per ALEX Edwards. med rec partially complete
--- NOTE | 2024-11-25 10:46 | ECG_ITS ---
Test Reason : REPEAT Blood Pressure : */* mmHG Vent. Rate : 102 BPM Atrial Rate : 102 BPM P-R Int : 166 ms QRS Dur : 116 ms QT Int : 368 ms P-R-T Axes : 43 3 131 degrees QTcB Int : 479 ms Sinus tachycardia Minimal voltage criteria for LVH, may be normal variant ( David product ) Anteroseptal infarct (cited on or before 25-Nov-2024) ST & T wave abnormality, consider lateral ischemia Abnormal ECG When compared with ECG of 25-Nov-2024 09:07, Premature supraventricular complexes are no longer Present Serial changes of Anteroseptal infarct Present Referred By: Grace Murrell Electronically Signed By: Bipin Pang
[2024-11-25 11:20] VITALS: BP 147/87; PULSE 106; RESP 16; TEMP 36.6; O2SAT 94
[2024-11-25] MEDS: Magnesium Sulfate/H2O 2 GM/50 ML PIGGYBACK IV (11:30)
[2024-11-25 11:31] LABS: Troponin-I High Sensitivity 32.9 ng/L (<3.5-17.0)
[2024-11-25 12:02] LABS: Troponin-I High Sensitivity 29.1 ng/L (<3.5-17.0)
--- NOTE | 2024-11-25 14:42 | PHA.MEDREC ---
Addendum entered by Ashu Clancy PharmD 11/25/24 14:45: reviewed Original Note: Pharmacy Consult ? Medication Reconciliation Pharmacy has reviewed the medication reconciliation done by nursing. Claims match med list.
--- NOTE | 2024-11-25 15:24 | PC.NURSE ---
pt is hyperverbal and has been continually talking almost non-stop all day. she continues to demand a catheter. she has urinated multiple times this shift. after several hours she was bladder scanned and had 791 in bladder, urinated 350ml, and was scanned again which showed 93ml. is at bedside evaluating patient. sitter also at bedside
[2024-11-25 15:27] LABS: Anion Gap 14 (12-20); Blood Urea Nitrogen 12 mg/dL (9-16); Calcium 8.7 mg/dL (8.4-10.2); Carbon Dioxide 20 mmol/L (22-29); Chloride 98 mmol/L (96-108); Creatinine Clr Calc Pharmacy 72.3; Estimated Glomerular Filt Rate > 60; Potassium 3.4 mmol/L (3.3-5.1); Sodium 129 mmol/L (135-145)
--- NOTE | 2024-11-25 15:27 | PM.IMHP ---
History of Present Illness Date of Service: 11/25/24 Chief Complaint: Altered mental status, The patient is a 64-year-old woman with a history of anxiety, depression, bipolar disorder, and hypertension, referred by her brother for worsening behaviors, not eating, and not taking medications. In the ED, her bedside glucose was 80 mg/dL and increased after glucose gel administration. Laboratory results show hyponatremia (Na 129 mEq/L), hypomagnesemia (Mg 1.5 mEq/L), elevated CK (329 U/L), and elevated troponin (32 repeat 29 ). Urine toxicology was positive for benzodiazepines and marijuana. Initial CO2 was 16 and increased to 20 after IV fluids. Review of Systems Review of Systems: Yes Unobtainable due to mental status PMFSH Medical History Labile hypertension Leiomyoma PTSD (post-traumatic stress disorder) Bipolar I disorder Tinea unguium History of psychogenic nonepileptic seizure Impaired fasting glucose Dyslipidemia (high LDL; low HDL) Hx of suicide attempt On beta baldemar at home Arthritis Anxiety Diastasis recti Umbilical hernia Compression fracture of L1 lumbar vertebra Dupuytren's contracture of left hand Lumbar disc herniation Essential hypertension Ventral hernia Urinary incontinence Family History Father Diabetes mellitus Mother COPD (chronic obstructive pulmonary disease) Sister Diabetes mellitus Glaucoma Other Mental health disorder Substance use disorder Surgical History H/O shoulder surgery Hx of elbow surgery Hx of repair of left rotator cuff Hx of colonoscopy History of lumbar fusion Social History Household Members: Other Household Members Other:: brother Housing: House Are you a primary child care centre manager to a significant other at home: No Do you presently have visiting nurse or other home services: No Alcohol intake: current Alcohol intake frequency: holidays/special occasions only Patient Tobacco Use Status: Former Tobacco user Tobacco use type: Cigarette Cigarette Packs Per Day: 1 Cigarettes Per Day: 20.0 e-Cigarette/Vaping Use: Never Used Second Hand Smoke Exposure: No Substance Use Type: Marijuana Have you been hit, kicked, punched, or otherwise hurt by someone within the past year? If so, by whom?: No Do you feel safe in your current relationship?: Yes Is there a partner from a previous relationship who is making you feel unsafe now?: No Are you made to feel afraid or neglected: No Advance Directives: Yes Advance Directives on File: Yes Advance Directives Date on File: 11/26/22 Do you have a plan to hurt others: No Plan Recently lost weight without trying: No Nutrition Risks: Difficulty chewing Patient : No : No Poor oral hygiene: No service: No Current occupational status: disabled Sexual orientation: Straight/Heterosexual Cognitive needs: No Hearing needs: No Vision needs: No Meds Allergies Allergy/AdvReac Type Severity Reaction Status Date / Time olanzapine AdvReac Severe visual Verified 11/25/24 06:23 changes carbamazepine (From Tegretol) AdvReac Intermediate Hyponatremi Verified 11/25/24 06:23 a divalproex sodium (From AdvReac Mild hyperammone Verified 11/25/24 06:23 Depakote) yoan gabapentin AdvReac Mild Unknown Verified 11/25/24 06:23 trazodone AdvReac Mild groggy Verified 11/25/24 06:23 Active Medications: Current Medications Sodium Chloride (Ns) 1,000 mls @ 75 mls/hr IVCONT .[id number] ADAN Last Admin: 11/25/24 11:30 Dose: 75 mls/hr Home Medications ?Medication ?Instructions ?Recorded ?Confirmed ?Last Taken ?Type melatonin 3 mg tablet 10 mg PO BEDTIME 03/07/23 11/25/24 Unknown History benztropine 0.5 mg tablet 0.5 mg PO BEDTIME 10/23/23 11/25/24 Unknown History lamotrigine 25 mg tablet (Lamictal) 100 mg PO DAILY 10/27/24 11/25/24 Unknown History atorvastatin 40 mg tablet 40 mg PO DAILY 11/25/24 11/25/24 Unknown History docusate sodium 100 mg capsule 100 mg PO DAILY PRN Constipation 11/25/24 11/25/24 Unknown History thiamine HCl (vitamin B1) 100 mg 100 mg PO DAILY 11/25/24 11/25/24 Unknown History tablet Physical Exam Vital Signs and Narrative: Vital Signs: Last Vital Signs Temp 97.8 F 11/25/24 11:20 Pulse 106 H 10/15/25 11:20 Resp 16 11/25/24 11:20 BP 147/87 H 11/25/24 11:20 Pulse Ox 94 11/25/24 11:20 O2 Del Method Room Air 11/25/24 11:20 BMI result Body Mass Index 22.1 Const: Other: Mental status exam reveals pressured speech, tangentiality, and hyperactivity; the remainder of the exam is unremarkable. Results Labs 11/25/24 09:01 11/26/24 05:32 Labs: Laboratory Results - last 24 hr 11/25/24 11/25/24 11/25/24 06:21 07:36 09:01 MCV 85.0 MCH 30.3 MCHC 35.7 H RDW 11.8 Plt Count 301 MPV 9.4 Immature Gran % (Auto) 0.3 Neut % (Auto) 78.8 H Lymph % (Auto) 15.3 L [place] % (Auto) 5.1 Eos % (Auto) 0.1 Baso % (Auto) 0.4 Lymph # (Auto) 1.8 [place] # (Auto) 0.6 Eos # (Auto) 0.0 Baso # (Auto) 0.1 Abs Immat Gran (auto) 0.03 Absolute Neuts (auto) 9.3 H Absolute Nucleated RBC 0.000 Nucleated RBC % (auto) 0.0 Anion Gap 20 Estim Creat Clear Calc 64.1 Estimated GFR > 60 POC Glucose 145 H Random Glucose 109 Calcium 9.2 D Magnesium 1.5 L Total Bilirubin 0.6 AST 36 H ALT 31 Alkaline Phosphatase 57 Total Creatine Kinase 329 H Troponin I High Sens 32.9 H Total Protein 6.7 Albumin 4.3 Urine Opiates Screen Not Detected Ur Buprenorphine Scrn Not Detected Ur Oxycodone Screen Not Detected Urine Methadone Screen Not Detected Urine Fentanyl Screen Not Detected Ur Barbiturates Screen Not Detected Ur Phencyclidine Scrn Not Detected Ur Amphetamines Screen Not Detected U Benzodiazepines Scrn POSITIVE H Urine Cocaine Screen Not Detected U Marijuana (THC) Screen POSITIVE H Ethyl Alcohol < 10 11/25/24 11/25/24 11:36 14:32 MCV MCH MCHC RDW Plt Count MPV Immature Gran % (Auto) Neut % (Auto) Lymph % (Auto) [place] % (Auto) Eos % (Auto) Baso % (Auto) Lymph # (Auto) [place] # (Auto) Eos # (Auto) Baso # (Auto) Abs Immat Gran (auto) Absolute Neuts (auto) Absolute Nucleated RBC Nucleated RBC % (auto) Anion Gap 14 Estim Creat Clear Calc 72.3 Estimated GFR > 60 POC Glucose Random Glucose 93 Calcium 8.7 Magnesium Total Bilirubin AST ALT Alkaline Phosphatase Total Creatine Kinase Troponin I High Sens 29.1 H Total Protein Albumin Urine Opiates Screen Ur Buprenorphine Scrn Ur Oxycodone Screen Urine Methadone Screen Urine Fentanyl Screen Ur Barbiturates Screen Ur Phencyclidine Scrn Ur Amphetamines Screen U Benzodiazepines Scrn Urine Cocaine Screen U Marijuana (THC) Screen Ethyl Alcohol Assessment and Plan (1) PTSD (post-traumatic stress disorder): Status: Acute (2) Bipolar I disorder: Status: Acute Plan Acute behavioral deterioration in a patient with bipolar disorder, complicated by hyponatremia, hypomagnesemia, rhabdomyolysis, and elevated troponin, likely reflecting multifactorial contributors including SIADH, malnutrition, medication nonadherence, starvation ketosis. Elevated troponin warrants evaluation for Type 2 [place] or myocardial injury from metabolic derangement or sympathetic overactivity. Plan Admit for further management of hyponatremia, hypomagnesemia, elevated troponin I likly d/t type 2 [place], no further testing at this time IVF for metabolic acidosis, likey from starvation ketopsis Will neeed inpatient hospitalization for decompensated bipolar, get Psych consult Restart home meds for HTN, HLD once med rec done Restart home meds once med recon done. She will need a sitter and will need Crisis eval for inpatient Psych admission once medically cleared DVT prophylaxis: lovenox Full code Quality Stroke Does the patient have a stroke diagnosis?: No VTE Prior VTE?: No VTE Risk Level:: Medical - moderate - high VTE Device Contraindication: Treatment Not Indicated VTE Drug Contraindication: N/A - Med Ordered
[2024-11-25 16:54] LABS: Appearance Urine Clear; Glucose Urine UA Negative (Negative); PH 6.0 (5.0-9.0); Specific Gravity - Urine <= 1.005 (1.005-1.025); UMIC TRIGGER UACC YES
[2024-11-25 17:29] VITALS: BP 154/96; PULSE 109; RESP 20; TEMP 36.9; O2SAT 95
[2024-11-25 17:45] LABS: UACC Culture Trigger YES
--- NOTE | 2024-11-25 19:21 | PC.NURSE ---
this RN assumed care of this pt @1900, pt noted to be sitting up in stretcher, hyperverbal w/ racing thoughts, speaking w/ hospital sitter
[2024-11-25 20:13] VITALS: BP 113/78
--- NOTE | 2024-11-25 20:22 | PC.NURSE ---
pt noted to continue being hyperverbal, yelling at sitter stating I am having a panic attack pt medicated per MAR
[2024-11-26 00:17] VITALS: BP 121/65; PULSE 88; RESP 18; TEMP 37.1; O2SAT 95
--- NOTE | 2024-11-26 01:53 | HO.NURTONUR ---
The patient is a 64-year-old woman, full code, reg diet, allergies to olanzapine, carbamazepine, divalproex sodium, gabapentin, trazadone, with a history of anxiety, depression, bipolar disorder, and hypertension, referred by her brother for worsening behaviors, not eating, and not taking medications. In the ED, her bedside glucose was 80 mg/dL and increased after glucose gel administration. Laboratory results show hyponatremia (Na 129 mEq/L), hypomagnesemia (Mg 1.5 mEq/L), elevated CK (329 U/L), and elevated troponin (32 repeat 29 ). Urine toxicology was positive for benzodiazepines and marijuana. Initial CO2 was 16 and increased to 20 after IV fluids. Plan: Admit for further management of hyponatremia, hypomagnesemia, IVF for metabolic acidosis Will neeed inpatient hospitalization for decompensated bipolar, Psych consult She will need a sitter 20g IV to the left forearm, NS running @75mL/hr
[2024-11-26 02:40] VITALS: BMI 22.0
[2024-11-26 03:06] VITALS: BP 147/74; PULSE 72; RESP 18; TEMP 37.3; O2SAT 94
[2024-11-26 03:16] VITALS: BMI 21.9
[2024-11-26 06:20] LABS: Anion Gap 15 (12-20); Blood Urea Nitrogen 11 mg/dL (9-16); Calcium 8.8 mg/dL (8.4-10.2); Carbon Dioxide 19 mmol/L (22-29); Chloride 105 mmol/L (96-108); Creatinine Clr Calc Pharmacy 74.6; Estimated Glomerular Filt Rate > 60; Magnesium 2.0 mg/dL (1.6-2.6); Potassium 3.4 mmol/L (3.3-5.1); Sodium 136 mmol/L (135-145)
[2024-11-26 06:53] VITALS: BP 152/90; PULSE 108; RESP 18; TEMP 36.6; O2SAT 96
[2024-11-26 08:49] VITALS: BP 150/94; PULSE 102
--- NOTE | 2024-11-26 09:26 | P.DS_ITS ---
DS: Providers Provider Date of admission: 11/25/24 14:19 Primary care physician: Unknown Physician Consults: 11/25/24 08:08 ED CARE Team Crisis Consult Stat Comment: Reason for consultation: ?manic 11/25/24 16:30 Consult to Psychiatry Routine Consulting Provider: TAMRA Psych Covering Reason for consultation: decompensated Bipolar 11/26/24 08:01 Inpt CARE Team Crisis Consult Routine Comment: Reason for consultation: Acute Roz, medically ready for dc DS: Diagnosis Discharge Diagnosis (1) PTSD (post-traumatic stress disorder): Status: Acute (2) Bipolar I disorder: Status: Acute DS: Summary Hospital Course Hospital Course: Admitting Diagnosis: * Altered mental status * Hyponatremia * Hypomagnesemia * Elevated troponin (Type 2 AR) * Decompensated bipolar disorder History of Present Illness: The patient is a 64-year-old woman with a history of anxiety, depression, bipolar disorder, and hypertension, who was referred by her brother for worsening behaviors, poor oral intake, and medication nonadherence. On presentation, she was found to have altered mental status. Initial labs revealed hyponatremia (Na 129 mEq/L), hypomagnesemia (Mg 1.5 mEq/L), elevated creatine kinase (CK 329 U/L), and elevated troponin (32, repeat 29). Urine toxicology was positive for benzodiazepines and marijuana. She was also noted to have metabolic acidosis (CO2 16, improved to 20 after IV fluids). Bedside glucose was 80 mg/dL, which improved after glucose gel administration. Hospital Course: The patient was admitted for management of acute behavioral deterioration in the setting of decompensated bipolar disorder, complicated by electrolyte abnormalities and laboratory evidence of myocardial injury (likely Type 2 [place] secondary to metabolic derangements and sympathetic overactivity). She received intravenous fluids for metabolic acidosis, likely due to starvation ketosis, and electrolyte repletion. Psychiatry was consulted, and the patient was evaluated by the CARE team and accepted for inpatient psychiatric admission. She required a sitter for safety during her medical admission. Over the course of her hospitalization, her mental mental status continues to be that of acute roz, she is eating and drinking, and her laboratory abnormalities have improved (Na normalized, bicarbonate improved to 19, magnesium to 2.0). She remains hemodynamically stable and is deemed medically stable for transfer to inpatient psychiatry. Condition at Discharge: Cleared for psychiatric admission. Discharge Diagnoses: Decompensated bipolar disorder with acute behavioral deterioration Hyponatremia (resolved) Hypomagnesemia (resolved) Elevated troponin, likely Type 2 myocardial infarction (secondary to metabolic derangement/starvation) Metabolic acidosis, likely secondary to starvation ketosis (resolved) Medication nonadherence History of hypertension History of anxiety and depression Substance use (benzodiazepines and marijuana detected on urine toxicology) Discharge Disposition: Transferred to inpatient psychiatry for further management of decompensated bipolar disorder. Time Attestation Discharge Coordination Time (in mins): 40 Quality: Safe Use of Opioids Does Pt have an Active Cancer Diagnosis on the Problem List?: No Quality: Stroke Does the patient have a stroke diagnosis?: No Physical Exam Vital Signs: Vital Signs: Last Vital Signs Temp 98 F 11/26/24 06:53 Pulse 102 H 11/26/24 08:49 Resp 18 11/26/24 06:53 BP 150/94 H 11/26/24 08:49 Pulse Ox 96 11/26/24 06:53 O2 Del Method Room Air 11/26/24 06:53 BMI result Body Mass Index 21.9 Const: Other: pressured speech, tangentiality, and hyperactivity; the remainder of the exam is unremarkable. DS: Data Data Completed and Pending Labs on day of discharge: Laboratory Results - last 24 hr 11/25/24 11/25/24 11/25/24 09:01 11:36 14:32 Sodium 127 L 129 L Potassium 3.8 3.4 Chloride 95 L 98 Carbon Dioxide 16 L 20 L Anion Gap 20 14 BUN 14 12 Creatinine 0.71 0.63 Estim Creat Clear Calc 64.1 72.3 Estimated GFR > 60 > 60 Random Glucose 109 93 Calcium 9.2 D 8.7 Magnesium 1.5 L Total Bilirubin 0.6 AST 36 H ALT 31 Alkaline Phosphatase 57 Total Creatine Kinase 329 H Troponin I High Sens 32.9 H 29.1 H Total Protein 6.7 Albumin 4.3 Urine Color Urine Appearance Urine pH Ur Specific [place] Urine Protein Urine Glucose (UA) Urine Ketones Urine Blood Urine Nitrite Ur Leukocyte Esterase Urine RBC Urine WBC Ur Squamous Epith Cells Urine Bacteria Hyaline Casts Ethyl Alcohol < 10 11/25/24 11/26/24 15:15 05:32 Sodium 136 Potassium 3.4 Chloride 105 Carbon Dioxide 19 L Anion Gap 15 BUN 11 Creatinine 0.61 Estim Creat Clear Calc 74.6 Estimated GFR > 60 Random Glucose 113 Calcium 8.8 Magnesium 2.0 Total Bilirubin AST ALT Alkaline Phosphatase Total Creatine Kinase Troponin I High Sens Total Protein Albumin Urine Color Yellow Urine Appearance Clear Urine pH 6.0 Ur Specific [place] <= 1.005 Urine Protein Negative Urine Glucose (UA) Negative Urine Ketones 15 Urine Blood Negative Urine Nitrite Negative Ur Leukocyte Esterase Moderate (2+) H Urine RBC 0-2 Urine WBC 0-5 Ur Squamous Epith Cells 0-2 Urine Bacteria None Seen Hyaline Casts 0-2 Ethyl Alcohol Discharge Plan Discharge Anticipated Discharge Date/Time: 11/26/24 09:45 Patient Disposition: Xfer Psychiatric Hosp Discharge Diagnosis: Acute roz, hyponatermia, hypomagnesemi, starvation ketosis Referrals: Physician,Unknown J [Primary Care Provider, Medical] - 1 Week Discharge Medications: Continued carvedilol 6.25 mg tablet 18.75 mg PO BID 30 Days Qty: 180 1RF Protocol: Hold for SBP/HR < HOLD for SBP < : 90 HOLD for HR < : 60 atorvastatin 40 mg tablet 40 mg PO DAILY thiamine HCl (vitamin B1) 100 mg tablet 100 mg PO DAILY docusate sodium 100 mg capsule 100 mg PO DAILY PRN (Reason: Constipation) multivitamin [Daily-Ni] Tablet 1 tab PO DAILY Qty: 30 0RF clonidine HCl 0.1 mg Tablet 0.1 mg PO BID PRN (Reason: Anxiety) Qty: 3 0RF Protocol: Hold for SBP< HOLD for SBP < : 90 clonazepam [Klonopin] 1 mg tablet 1 mg PO BID Qty: 14 0RF benztropine 0.5 mg tablet 0.5 mg PO BEDTIME melatonin 3 mg tablet 10 mg PO BEDTIME lamotrigine [Lamictal] 25 mg tablet 100 mg PO DAILY Diet: Advance to usual diet Activity on Discharge: As tolerated Stand Alone Forms: Patient Portal Discharge page Print Language: Irish Care Plan Goals: recovery from acute roz Health Concerns: bipolar with acute roz, hyponatremia (resolved) hypomagnesemia
--- NOTE | 2024-11-26 13:40 | MHC.CM.PN ---
PT YELLING CONTINUOUSLY IN ROOM WHILE FACING EMPTY SIDE OF ROOM CM CALLED PTS BROTHER/HCP REJI [phone] HE CONFIRMS PT HAS LIVED WITH HIM SINCE 2020 AND IS INDEPENDENT WITH SELF CARE HE REPORTS PT HAS ANDRE BENSONA FOR MED MANAGEMENT, THEY COME M-W-F HCP ON FILE PCP: NOEMI CAMPBELL IMM DELIVERED DCP: PT WILL TRANSFER TO [facility] TODAY
== END 2024-11-26 15:11 | DRG 641 ==
LOC: HO.ED 07:37 → HO.EDOVER 14:21 → HO.S3 11-26 01:07
PROVIDERS: Physician Assistant Medical; Admitting Provider Internal Medicine; Emergency Provider Emergency Medicine; Visit Provider Internal Medicine
DX: E87.1 Hypo-osmolality and hyponatremia (principal); E83.42 Hypomagnesemia; E88.89 Other specified metabolic disorders; F43.10 Post-traumatic stress disorder, unspecified; F31.9 Bipolar disorder, unspecified; Z87.891 Personal history of nicotine dependence; Z79.899 Other long term (current) drug therapy
CPT/HCPCS: 36415; 80048; 80053; 80307; 81001; 82550; 82947; 83735; 84484; 85025; 87086; 87088; 87186; 93005; 99285; J1650; J3475; S9485

== ENCOUNTER → 2024-11-25 07:55 | Outpatient (BNV) | payer OTHER, SELFPAY | PROVIDERS: Admitting Provider Internal Medicine; Emergency Provider Emergency Medicine; Visit Provider Internal Medicine Cardiovascular Disease | DX: I49.1 Atrial premature depolarization (principal); I25.2 Old myocardial infarction; R00.0 Tachycardia, unspecified | CPT/HCPCS: 93010 ==

== ENCOUNTER → 2024-11-25 14:19 | Outpatient (BNV) | payer OTHER, SELFPAY | PROVIDERS: Admitting Provider Internal Medicine; Emergency Provider Emergency Medicine; Visit Provider Internal Medicine | DX: F43.10 Post-traumatic stress disorder, unspecified (principal); F31.9 Bipolar disorder, unspecified | CPT/HCPCS: 99223 ==

== ENCOUNTER 2024-11-26 15:13 | Inpatient (IN) | payer OTHER, SELFPAY ==
[2024-11-26 15:39] VITALS: BP 175/98; PULSE 122; RESP 14; TEMP 36.8; O2SAT 95
[2024-11-26 15:48] VITALS: BMI 21.2
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
--- OUTSIDE RECORDS SUMMARY | 2024-11-26 19:04 | XMS_ITS | Clinical Summary ---
Author Organization [facility] Address [address] [place] [address] Phone Care Team Providers Care Referral Rn Name Role Phone Suzanna Cervantes MD Primary [...] Problems Problem Noted Date Diagnosed Date Seizure ([facility] V24, [facility] V28) 11/18/2024 Encounters Date Type Department Care Team Description 11/18/2024 2:10 PM EDT - 11/20/2024 9:52 AM EDT Hospital Encounter [facility] [address] [place] [phone] Cb Martinez MD [place]uk[place], MD Sapna Damon, Malcolm Reis MD Aphasia (Primary Dx); Stroke-like symptoms; Seizure ([facility] V24, [facility] V28) Discharge Disposition: Home or Self Care [...] LAB HEMETOLOGY METHOD 11/20/2024 9:17 AM EDT [facility] RBC 4.50 3.80 - 4.80 M/mcL LAB HEMETOLOGY METHOD 11/20/2024 9:17 AM EDT [facility] Hemoglobin 13.4 11.5 - 16.0 g/dL LAB [facility]OLOG[facility] Hematocrit 38.5 35.0 - 47.0 % LAB HEMETOLOGY METHOD 11/20/2024 9:17 AM [facility] MCV 86.1 79.0 - 98.0 FL LAB HEMETOLOGY METHOD 11/20/2024 9:17 AM [facility] MCH 30.0 27.0 - 32.0 pcg LAB HEMETOLOGY METHOD 11/20/2024 9:17 AM EDT [facility] MCHC 34.8 32.0 - 37.0 g/dL LAB HEMETOLOGY METHOD 11/20/2024 9:17 AM [facility] RDW 12.3 11.0 - 15.0 % LAB HEMETOLOGY METHOD 11/20/2024 9:17 AM [facility] Platelets 305 130 - 400 K/mcL LAB HEMETOLOGY METHOD 11/20/2024 9:17 AM T [facility] MPV 9.9 7.0 - 11.0 FL LAB HEMETOLOGY METHOD 11/20/2024 9:17 AM [facility] NRBC 0.0 <1.0 % LAB HEMETOLOGY METHOD 11/20/2024 9:17 AM [facility] NRBC Absolute 0.00 <0.10 K/mcL LAB HEMETOLOGY METHOD 11/20/2024 9:17 AM T [facility] Blood Venous blood specimen / Unknown Venipuncture / Unknown 11/20/2024 8:13 AM EDT 11/20/2024 9:01 AM EDT us Dhara Mcdermott NP LAB BLOOD ORDERABLES Final Resul t [facility] [address] [place] [address], * Magnesium (11/20/2024 8:13 AM EDT) Magnesium 1.9 1.9 - 2.6 mg/dL LAB CHEMISTRY METHOD 11/20/2024 9:53 AM [facility] Blood Venous blood specimen / Unknown Venipuncture / Unknown 11/20/2024 8:13 AM EDT 11/20/2024 9:01 AM EDT us Dhara Mcdermott GROCERY CLERK STOCKING LAB BLOOD ORDERABLES Final Resul t [facility] [address] [place] [address], * (ABNORMAL) Basic metabolic panel (11/20/2024 8:13 AM EDT) Only the most recent of2 resultswithin the time period is included. Pathologist [facility] Sodium 138 133 - 145 mmol/L LAB CHEMISTRY METHOD 11/20/2024 9:53 AM [facility] Potassium 4.0 3.5 - 5.5 mmol/L LAB CHEMISTRY METHOD 11/20/2024 9:53 AM [facility] Chloride 102 96 - 110 mmol/L LAB CHEMISTRY METHOD 11/20/2024 9:53 AM [facility] CO2 25 21 - 32 mmol/L LAB CHEMISTRY METHOD 11/20/2024 9:53 AM [facility] Anion Gap 11 3 - 11 LAB CHEMISTRY METHOD 11/20/2024 9:53 AM [facility] Glucose 162(H) 70 - 100 mg/dL LAB CHEMISTRY METHOD 11/20/2024 9:53 AM [facility] BUN 9 5 - 25 mg/dL LAB CHEMISTRY METHOD 11/20/2024 9:53 AM [facility] Creatinine 0.61 0.50 - 1.10 mg/dL LAB CHEMISTRY METHOD 11/20/2024 9:53 AM EDT [facility] eGFR 101 >=60 mL/min/1. 73m2 LAB CHEMISTRY METHOD 11/20/2024 9:53 AM EDT [facility] Comment:Calculation based on the Chronic Kidney Disease Epidemiology Collaboration (CKD-EPI) equation refit without adjustment for race. BUN/Creatinine Ratio 14.8 LAB CHEMISTRY METHOD 11/20/2024 9:53 AM EDT [facility] Calcium 9.3 8.5 - 10.5 mg/dL LAB CHEMISTRY METHOD 11/20/2024 9:53 AM EDT [facility] Blood Venous blood specimen / Unknown Venipuncture / Unknown 11/20/2024 8:13 AM EDT 11/20/2024 9:01 AM EDT us Dhara Mcdermott GROCERY CLERK STOCKING LAB BLOOD ORDERABLES Final Resul t [facility] [address] [place] [address], [place] [phone] * ROUTINE EEG (11/19/2024 8:53 AM EDT) Narrative Moreno Reese MD - 11/19/2024 5:30 PM EDT Moreno Reese MD 11/19/2024 5:34 PM Routine EEG Date/Time: 11/19/2024 5:30 PM Performed by: Moreno Reese MD Authorized by: Dhara Mcdermott NP us Dhara Mcdermott GROCERY CLERK STOCKING NEUROLOGY ORDERABLES Final Resul t * Thyroid stimulating hormone (11/19/2024 5:16 AM EDT) TSH 2.51 0.40 - 4.00 mcIU/mL LAB CHEMISTRY METHOD 11/19/2024 3:33 PM EDT [facility] Blood Venous blood specimen / Unknown Venipuncture / Unknown 11/19/2024 5:16 AM EDT 11/19/2024 6:19 AM EDT Dhara Mcdermott GROCERY CLERK STOCKING LAB BLOOD ORDERABLES Final Resul t Performing Organization Address [facility] Co de Phone Number [facility] [address] [place] [address], [place] [phone] * (ABNORMAL) Vitamin B12 (11/19/2024 5:16 AM EDT) Vitamin B-12 1,073(H) 250 - 900 pcg/mL LAB CHEMISTRY METHOD 11/19/2024 3:53 PM EDT [facility] Blood Venous blood specimen / Unknown Venipuncture / Unknown 11/19/2024 5:16 AM EDT 11/19/2024 6:19 AM EDT us Dhara Mcdermott GROCERY CLERK STOCKING LAB BLOOD ORDERABLES Final Resul t Performing Organization Address [facility] de Phone Number [facility] [address] [place] [address], [place] [phone] * MR Brain wo Contrast (11/18/2024 8:15 [...] developed and the performance characteristics determined by [facility]. This confirmation testing has not been cleared or approved by the FDA. The laboratory is regulated under CLIA as qualified to perform high-complexity testing. This test is used for patient testing purposes. It should not be regarded as investigational or for research. Test performed at [facility], [address] , [place] [address] Melita Martins MD, PhD - Wildlife Rehabilitator Blood Venous blood specimen / Unknown Venipuncture / Unknown 11/18/2024 5:55 PM EDT 11/18/2024 6:11 PM EDT us Cb Martinez MD LAB BLOOD ORDERABLES Final Res ult [address] [place] [address] * (ABNORMAL) RHYTHM ECG, REPORT (11/18/2024 3:29 PM EDT) Narrative Cb Martinez MD - 11/18/2024 3:29 PM EDT Cb Martinez MD 11/19/2024 11:58 AM ECG Rhythm Interpretation and Report Date/Time: 11/18/2024 3:29 PM Performed by: Cb Martinez MD Authorized by: Cb Martinez MD ECG interpreted by ED Physician in the absence of a research dairy farm supervisor: yes Interpretation: Interpretation: abnormal Details: Normal sinus rhythm with a ventricular rate of 85 bpm. Fusion complexes present and PACs. Normal AL, QRS, QTc, axis. QTc, axis. QRS slightly wide at 118 ms. No acute ischemic changes. No recent EKGs to compare to, EKG from October 2022 showed sinus tachycardia, does appear no QRS prolongation, no new PACs. us Cb Martinez MD ECG ORDERABLES Final Result * 12-Lead ECG (11/18/2024 3:03 PM EDT) Pathologist [facility] Ventricular Rate ECG 85 BPM GEMUSE Atrial Rate 85 BPM GEMUSE P-R Interval 178 ms GEMUSE QRS Duration 118 ms GEMUSE Q-T Interval 378 ms GEMUSE QTc 449 ms GEMUSE P Wave [place] 56 degrees GEMUSE R [place] 19 degrees GEMUSE T [place] 108 degrees GEMUSE ECG Interpretation Sinus rhythm [...] ECG ORDERABLES Final Result Performing Organization Address City/[facility] Co de Phone Number GEMUSE * Prothrombin time with INR (11/18/2024 2:58 PM EDT) Protime 12.6 10.6 - 13.9 sec LAB COAGULATION METHOD 11/18/2024 3:34 PM EDT [facility] INR 1.0 LAB COAGULATION METHOD 11/18/2024 3:34 PM EDT [facility] Blood Venous blood specimen / Unknown Venipuncture / Unknown 11/18/2024 2:58 PM EDT 11/18/2024 3:18 PM EDT Cb Mratinez MD LAB BLOOD ORDERABLES Final Res ult Performing Organization Address [facility] de Phone Number [facility] [address] [place] [address], [place] [phone] * CT Head Stroke wo Contrast (11/18/2024 [...] Signed Date: 11/18/2024 14:48 ET Workstation ID: [id number] Transcribed By: Self Edit Transcribed Date: 11/18/2024 [...] Signed Date: 11/18/2024 14:48 ET Workstation ID: [id number] Transcribed By: Self Edit Transcribed Date: 11/18/2024 14:46 ET Cb Martinez MD [facility] [place] PROCEDURES Final Result * CT Angio [...] Signed Date: 11/18/2024 15:10 ET Workstation ID: [id number] Transcribed By: Self Edit Transcribed Date: 11/18/2024 15:04 ET Narrative 11/18/2024 3:10 PM EDT PROCEDURE: CTA HEAD AND NECK INDICATION: aphasia TECHNIQUE: CTA of the head and neck with intravenous contrast. Multiplanar reformats. The examination was performed utilizing dose reduction techniques.3-D or MIP images were produced with postprocessing on an independent computer workstation. 90cc Omnipaque 370 injected. Scan was analyzed using [employer] AI based computer aided triage software. Total [...] is patent. Vertebrobasilar system is patent. Proximal curriculum and assessment coordinator are patent. Major dural venous sinuses opacify [...] 90cc Omnipaque 370 injected. Scan wasanalyzed using [employer] AI based computer aided triage software. Total [...] is patent. Vertebrobasilar system is patent. Proximal curriculum and assessment coordinator are patent. Major dural venous sinuses opacify normally with contrast. Extracranial structures are unremarkable. Degenerative changes in thebones. IMPRESSION: No evidence of hemodynamically significant stenosis in the head or neck. -------- FINAL REPORT -------- Dictated By: Татьяна Obrien Dictated Date: 11/18/2024 15:04 ET Assigned Physician: Татьяна Obrien Reviewed and Electronically Signed By: Татьяна Obrien Signed Date: 11/18/2024 15:10 ET Workstation ID: [id number] Transcribed By: Self Edit Transcribed Date: 11/18/2024 15:04 ET Cb Martinez MD IMG CT PROCEDURES Final Result * Troponin I High Sensitivity (11/18/2024 2:33 PM EDT) [facility] High Sensitivity Troponin I 7 <=54 ng/L LAB CHEMISTRY METHOD 11/18/2024 3:40 PM EDT [facility] Blood Venous blood specimen / Unknown Venipuncture / Unknown 11/18/2024 2:33 PM EDT 11/18/2024 3:05 PM EDT Narrative [facility] - 11/18/2024 3:40 PM EDT High levels of biotin in samples may falsely decrease hsTroponin values. Use caution when interpreting hsTroponin results in patients taking biotin who exhibit renal impairment (eGFR <60) or in patients taking more than 20 mg/day of biotin. us Cb Martinez MD LAB BLOOD ORDERABLES Final Res ult [facility] [address] [place] [address], * (ABNORMAL) Lipid panel with reflex to direct LDL (11/18/2024 2:33 PM EDT) Pathologist [facility] Cholesterol 229(H) 0 - 200 mg/dL LAB CHEMISTRY METHOD 11/18/2024 7:49 PM EDT [facility] Triglycerides 91 0 - 150 mg/dL LAB CHEMISTRY METHOD 11/18/2024 7:49 PM EDT [facility] HDL 68 >=40 mg/dL LAB CHE[facility]STRY [facility]24 [facility] LDL Calculated 143(H) 0 - 100 mg/dL LAB CHEMISTRY METHOD 11/18/2024 7:49 PM EDT [facility] Comment:Estimated LDL Calcul ated using equation: Total cholesterol - HDL cholesterol - (Triglycerides/5) VLDL Cholesterol Trey 18.2 mg/dL LAB CHEMISTRY METHOD 11/18/2024 7:49 PM EDT [facility] Non HDL Chol. (LDL+VLDL) 161(H) <145 mg/dL LAB CHEMISTRY METHOD 11/18/2024 7:49 PM EDT [facility] Chol/HDL Ratio 3.4 0.0 - 4.4 LAB CHEMISTRY METHOD 11/18/2024 7:49 PM T [facility] Blood Venous blood specimen / Unknown Venipuncture / Unknown 11/18/2024 2:33 PM EDT 11/18/2024 3:05 PM EDT us Jose JOHNSON LAB BLOOD ORDERABLES Sun l Result [facility] [address] [place] [address], * CBC auto differential (11/18/2024 2:33 PM EDT) WBC 8.2 4.8 - 10.8 K/[facility] LAB HEMETOLOGY METHOD 11/18/2024 3:22 PM EDT [facility] RBC 4.80 3.80 - 4.80 M/[facility] LAB HEMETOLOGY METHOD 11/18/2024 3:22 PM EDT [facility] Hemoglobin 14.8 11.5 - 16.0 g/dL LAB HEMETOLOGY METHOD 11/18/2024 3:22 PM EDT [facility] Hematocrit 41.5 35.0 - 47.0 % LAB HEMETOLOGY METHOD 11/18/2024 3:22 PM [facility] MCV 86.3 79.0 - 98.0 FL LAB HEMETOLOGY METHOD 11/18/2024 3:22 PM [facility] MCH 30.8 27.0 - 32.0 pcg LAB HEMETOLOGY METHOD 11/18/2024 3:22 PM [facility] MCHC 35.7 32.0 - 37.0 g/dL LAB HEMETOLOGY METHOD 11/18/2024 3:22 PM [facility] RDW 11.9 11.0 - 15.0 % LAB HEMETOLOGY METHOD 11/18/2024 3:22 PM [facility] Platelets 355 130 - 400 K/mcL LAB HEMETOLOGY METHOD 11/18/2024 3:22 PM [facility] MPV 9.4 7.0 - 11.0 FL LAB HEMETOLOGY METHOD 11/18/2024 3:22 PM [facility] NRBC 0.0 <1.0 % LAB HEMETOLOGY METHOD 11/18/2024 3:22 PM [facility] NRBC Absolute 0.00 <0.10 K/mcL LAB HEMETOLOGY METHOD 11/18/2024 3:22 PM [facility] Neutrophils Relative 74.2 % LAB HEMETOLOGY METHOD 11/18/2024 3:22 PM [facility] Lymphocytes Relative 18.4 % LAB HEMETOLOGY METHOD 11/18/2024 3:22 PM [facility] Monocytes Relative 5.8 % LAB HEMETOLOGY METHOD 11/18/2024 3:22 PM EDT [facility] Eosinophils Relative 0.6 % LAB HEMETOLOGY METHOD 11/18/2024 3:22 PM EDT [facility] Basophils Relative 0.6 % LAB HEMETOLOGY METHOD 11/18/2024 3:22 PM EDT [facility] Immature Granulocytes Relative 0.4 % LAB HEMETOLOGY METHOD 11/18/2024 3:22 PM EDT [facility] Neutrophils Absolute 6.10 1.50 - 7.00 K/mcL LAB HEMETOLOGY METHOD 11/18/2024 3:22 PM EDT [facility] Lymphocytes Absolute 1.51 1.00 - 5.00 K/mcL LAB HEMETOLOGY METHOD 11/18/2024 3:22 PM EDT [facility] Monocytes Absolute 0.48 0.20 - 1.00 K/mcL LAB HEMETOLOGY METHOD 11/18/2024 3:22 PM EDT [facility] Eosinophils Absolute 0.05 0.00 - 0.50 K/mcL LAB HEMETOLOGY METHOD 11/18/2024 3:22 PM EDT [facility] Basophils Absolute 0.05 0.00 - 0.20 K/mcL LAB HEMETOLOGY METHOD 11/18/2024 3:22 PM EDT [facility] Immature Granulocytes Absolute 0.03 0.00 - 0.03 K/mcL LAB HEMETOLOGY METHOD 11/18/2024 3:22 PM EDT [facility] Blood Venous blood specimen / Unknown Venipuncture / Unknown 11/18/2024 2:33 PM EDT 11/18/2024 3:05 PM EDT us Cb Martinez MD LAB BLOOD ORDERABLES Final Res ult [facility] [address] [place] [address], * Hemoglobin A1c (11/18/2024 2:33 PM EDT) [facility] Hemoglobin A1C 5.2 <6.5 % LAB CHEMISTRY METHOD 11/18/2024 10:20 PM EDT [facility] Mean Bld Glu Estim. 103 mg/dL LAB CHEMISTRY METHOD 11/18/2024 10:20 PM EDT [facility] Blood Venous blood specimen / Unknown Venipuncture / Unknown 11/18/2024 2:33 PM EDT 11/18/2024 3:05 PM EDT Jose JOHNSON LAB BLOOD ORDERABLES Sun l Result Performing Organization Address [facility]/ZIP Co de Phone Number [facility] [address] [place] [address], * Cardiac Enzymes - CPK (11/18/2024 2:33 PM EDT) [facility] Total CK 45 22 - 269 unit/L LAB CHEMISTRY METHOD 11/18/2024 3:38 PM EDT [facility] Blood Venous blood specimen / Unknown Venipuncture / Unknown 11/18/2024 2:33 PM EDT 11/18/2024 3:05 PM EDT Cb Martinez MD LAB BLOOD ORDERABLES Final Res ult [facility] [address] [place] [address], [place] [phone] * (ABNORMAL) Comprehensive Metabolic Panel (CMP) (11/18/2024 2:33 PM EDT) [facility] Sodium 130(L) 133 - 145 mmol/L LAB CHEMISTRY METHOD 11/18/2024 3:37 PM EDT [facility] Potassium 4.1 3.5 - 5.5 mmol/L LAB CHEMISTRY METHOD 11/18/2024 3:37 PM [facility] Chloride 97 96 - 110 mmol/L LAB CHEMISTRY METHOD 11/18/2024 3:37 PM [facility] CO2 25 21 - 32 mmol/L LAB CHEMISTRY METHOD 11/18/2024 3:37 PM [facility] Anion Gap 8 3 - 11 LAB CHEMISTRY METHOD 11/18/2024 3:37 PM [facility] Glucose 118(H) 70 - 100 mg/dL LAB CHEMISTRY METHOD 11/18/2024 3:37 PM [facility] BUN 16 5 - 25 mg/dL LAB CHEMISTRY METHOD 11/18/2024 3:37 PM [facility] Creatinine 0.67 0.50 - 1.10 mg/dL LAB CHEMISTRY METHOD 11/18/2024 3:37 PM [facility] eGFR 98 >=60 mL/min/1. 73m2 LAB CHEMISTRY METHOD 11/18/2024 3:37 PM [facility] Comment:Calculation based on the Chronic Kidney Disease Epidemiology Collaboration (CKD-EPI) equation refit without adjustment for race. BUN/Creatinine Ratio 23.9 LAB CHEMISTRY METHOD 11/18/2024 3:37 PM [facility] Calcium 9.7 8.5 - 10.5 mg/dL LAB CHEMISTRY METHOD 11/18/2024 3:37 PM [facility] AST (SGOT) 27 10 - 42 unit/L LAB CHEMISTRY METHOD 11/18/2024 3:37 PM [facility] ALT (SGPT) 41 10 - 60 unit/L LAB CHEMISTRY METHOD 11/18/2024 3:37 PM [facility] Alkaline Phosphatase 65 42 - 121 unit/L LAB CHEMISTRY METHOD 11/18/2024 3:37 PM [facility] Total Protein 7.5 6.0 - 8.0 g/dL LAB CHEMISTRY METHOD 11/18/2024 3:37 PM EDT [facility] Albumin 4.0 3.2 - 5.0 g/dL LAB CHEMISTRY METHOD 11/18/2024 3:37 PM EDT [facility] Total Bilirubin 0.6 0.0 - 1.4 mg/dL LAB CHEMISTRY METHOD 11/18/2024 3:37 PM EDT [facility] Blood Venous blood specimen / Unknown Venipuncture / Unknown 11/18/2024 2:33 PM EDT 11/18/2024 3:05 PM EDT us Cb Martinez MD LAB BLOOD ORDERABLES Final Res ult [facility] [address] [place] [address], from Last 3 Months Insurance [facility] Member Subscriber Plan / Payer (Ef fective 2016-Present) Name:CARYN BAI Relation to Subscriber:Self Name:Caryn Bai Payer ID:[id number] Group ID:[id number] Type:Not on file Address: [place] [address] [address] [id number] Advance Directives * Full Code - Default [...] currently active code status orders. Care Teams Referral Rn Relationship Specialty Start Date End Date Suzanna Cervantes MD [address] [place] [address] PCP - General Internal Medicine 11/18/24
--- OUTSIDE RECORDS SUMMARY | 2024-11-26 19:04 | XMS_ITS | Continuity of Care Document ---
Author Name [facility], Medical Address [address] [place] [id number] Organization Unknown Address [address] [place] [id number] Medications No known medications Problems No known problems
--- OUTSIDE RECORDS SUMMARY | 2024-11-26 19:04 | XMS_ITS | Clinical Summary ---
Author Organization [facility] Address [address] [address] Phone Care Team Providers Care Geothermal Electrical Engineer Name Role Phone Jenniffer Cervantes MD Primary Care Provider [phone] Allergies No known active allergies Medications thiamine [...] Visit [facility] [address] [phone] Samuel Espinal MD [address] [phone] Health Maintenance Due Date Last Done Comments [...] this topic Insurance ([id number]) ([id number]) Care Teams Geothermal Electrical Engineer Relationship Specialty Start Date End Date Jenniffer Cervantes MD [address] [place] [address] PCP - General Internal Medicine 05/16/21
[2024-11-26 19:38] VITALS: PULSE 107; RESP 18; TEMP 36.2; O2SAT 99
[2024-11-26 22:00] VITALS: BP 164/102; PULSE 110
--- NOTE | 2024-11-27 08:30 | P.CONHOSP_ITS ---
History of Present Illness Data of Consult Service Date: 11/27/24 Primary Care Provider: Unknown Physician HPI Reason for consult: Medical consult 64-year-old female with a past medical history of PTSD, bipolar disorder, hyperlipidemia, nonepileptic seizures, hypertension, presented to the ED after her brother called 911 due to erratic behavior, not taking medications, and thoughts of hurting her brother. Her initial workup revealed a mild leukocytosis, hyponatremia at 127, magnesium was low at 1.5 CPK was 329. Urine drug tox screen was positive for benzos and marijuana. She was tachycardia, her troponins were drawn which were within normal limits. EKG demonstrated myocardial injury and she was admitted to inpatient medicine for stabilization. Patient was diagnosed with type 2 [place] likely secondary to metabolic derangements and sympathetic overactivity. She received intravenous fluids to correct metabolic acidosis likely due to starvation ketosis and electrolyte repletion. During the hospitalization she continued to be in acute rj, her laboratory abnormalities improved, she remained hemodynamically stable and was deemed medically stable for transfer to inpatient psychiatry she was evaluated by the care team and they accepted her for inpatient admission. On exam she is hyperverbal, whispering at times, difficult to understand. Does not answer questions appropriately. She denies any medical concerns other than social complaints. Review of Systems 2 Review of Systems: Denies any shortness of breath, chest pain, headaches, dysuria, abdominal pain or discomfort, nausea, vomiting or diarrhea. Denies fever or chills. [facility] Medical History Labile hypertension Leiomyoma PTSD (post-traumatic stress disorder) Bipolar I disorder Tinea unguium History of psychogenic nonepileptic seizure Impaired fasting glucose Dyslipidemia (high LDL; low HDL) Hx of suicide attempt On beta baldemar at home Arthritis Anxiety Diastasis recti Umbilical hernia Compression fracture of L1 lumbar vertebra Dupuytren's contracture of left hand Lumbar disc herniation Essential hypertension Ventral hernia Urinary incontinence Family History Father Diabetes mellitus Mother COPD (chronic obstructive pulmonary disease) Sister Diabetes mellitus Glaucoma Other Mental health disorder Substance use disorder Surgical History H/O shoulder surgery Hx of elbow surgery Hx of repair of left rotator cuff Hx of colonoscopy History of lumbar fusion Social History Household Members: None Household Members Other:: brother Housing: Homeless Are you a primary home health care respiratory therapist to a significant other at home: No Do you presently have visiting nurse or other home services: No Alcohol intake: current Alcohol intake frequency: holidays/special occasions only Patient Tobacco Use Status: Former Tobacco user Tobacco use type: Cigarette Cigarette Packs Per Day: 1 Cigarettes Per Day: 20.0 e-Cigarette/Vaping Use: Never Used Second Hand Smoke Exposure: No Substance Use Type: Marijuana Currently Displaying Signs/Symptoms of Drug Intoxication Withdrawal: No Have you been hit, kicked, punched, or otherwise hurt by someone within the past year? If so, by whom?: No Do you feel safe in your current relationship?: No Current Relationship Is there a partner from a previous relationship who is making you feel unsafe now?: No Are you made to feel afraid or neglected: No Advance Directives: Yes Advance Directives on File: Yes Advance Directives Date on File: 11/26/22 Do you have thoughts of harming others: None Do you have a plan to hurt others: No Plan Recently lost weight without trying: Yes How much weight loss: 14-23 pounds Eating poorly because of decreased appetite: No Nutrition screen score: 4 Nutrition Risks: No Nutritional Risk Patient : No : No Poor oral hygiene: No service: No Current occupational status: disabled Sexual orientation: Straight/Heterosexual Cognitive needs: No Hearing needs: No Vision needs: No Meds Allergies Allergy/AdvReac Type Severity Reaction Status Date / Time olanzapine AdvReac Severe visual Verified 11/25/24 06:23 changes carbamazepine (From Tegretol) AdvReac Intermediate Hyponatremi Verified 11/25/24 06:23 a divalproex sodium (From AdvReac Mild hyperammone Verified 11/25/24 06:23 Depakote) yoan gabapentin AdvReac Mild Unknown Verified 11/25/24 06:23 trazodone AdvReac Mild groggy Verified 11/25/24 06:23 Active Medications: Current Medications Al Hydroxide/Mg Hydroxide (Magnesium Hydrox/Alum Hydrox 30 Ml Oral.Susp) 30 ml PO Q6H PRN PRN Reason: Heartburn/Nausea Atorvastatin Calcium (Atorvastatin Calcium 40 Mg Tablet) 40 mg PO DAILY [facility] Benztropine Mesylate (Benztropine Mesylate 0.5 Mg Tablet) 0.5 mg PO BEDTIME [facility] Last Admin: 11/26/24 22:01 Dose: 0.5 mg Carvedilol (Carvedilol 6.25 Mg Tablet) 18.75 mg PO BID [facility]; Protocol Last Admin: 11/26/24 22:00 Dose: 18.75 mg Clonazepam (Clonazepam 1 Mg Tablet) 1 mg PO BID [facility] Last Admin: 11/26/24 22:02 Dose: 1 mg Clonidine HCl (Clonidine Hcl 0.1 Mg Tablet) 0.1 mg PO BID PRN; Protocol PRN Reason: Anxiety Docusate Sodium (Docusate Sodium 100 Mg Capsule) 100 mg PO DAILY PRN PRN Reason: Constipation Hydroxyzine HCl (Hydroxyzine Hcl 25 Mg Tablet) 25 mg PO Q6H PRN PRN Reason: mild anxiety Lamotrigine (Lamotrigine 100 Mg Tablet) 100 mg PO DAILY [facility] Magnesium Hydroxide (Milk Of Magnesia 30 Ml Oral.Susp) 30 ml PO DAILY PRN PRN Reason: Constipation Melatonin (Melatonin 3 Mg Tablet) 9 mg PO BEDTIME [facility] Last Admin: 11/26/24 22:01 Dose: 9 mg Multivitamins/Vitamin C (Multivitamin Tablet) 1 tab PO DAILY [facility] Thiamine HCl (Thiamine Hcl 100 Mg Tablet) 100 mg PO DAILY [facility] Home Medications ?Medication ?Instructions ?Recorded ?Confirmed ?Last Taken ?Type melatonin 3 mg tablet 10 mg PO BEDTIME 03/07/2311/25/24 20:13 History benztropine 0.5 mg tablet 0.5 mg PO BEDTIME 10/23/23 1 11/25/24 20:16 History lamotrigine 25 mg tablet (Lamictal) 100 mg PO DAILY 11/26/24 11/26/24 08:49 History atorvastatin 40 mg tablet 40 mg PO DAILY 11/25/2411/1111/26/24 08:49 History docusate sodium 100 mg capsule 100 mg PO DAILY PRN Con stipation 11/25/24 11/26/24 11/25/24 17:31 History thiamine HCl (vitamin B1) 100 mg 100 mg PO DAILY 11/2511/26/24 11/26/24 08:49 History tablet Physical Exam 2 Vital Signs and Narrative: Vital Signs: Last Vital Signs Temp 97.1 F 11/26/24 19:38 Pulse 110 H 11/26/24 22:00 Resp 18 11/26/24 19:38 BP 164/102 H 11/26/24 22:00 Pulse Ox 99 11/26/24 19:38 O2 Del Method Room Air 11/26/24 19:38 BMI result Body Mass Index 21.2 CONST: Alert and oriented, in NAD. Thin HEENT: Normocephalic, atraumatic, MMM, Eyes clear RESP: Lungs clear, RRR even and regular HEART:,RRR, S1, S2. No edema GI:Abdomen Soft NT, ND. + BS times four :Deferred SKIN: Warm dry and intact, no visible lesions or rashes NEURO:CN II-XII Intact bilaterally, Sensation intact. Speech difficult to understand. PSYCH: Manic, whispers at times making it difficult to understand her. Difficulty completing thoughts. Results Labs 11/27/24 09:31 11/27/24 09:30 Assessment and Plan (1) Essential hypertension: Status: Acute Plan 64-year-old female admitted from the medical floor after she presented to the ED with erratic behavior. She is now admitted to the medical floor for further stabilization Bipolar disorder with rj/PTSD Treatment per psychiatric team Hyperlipidemia/hypertension Continue with Coreg and atorvastatin Hyponatremia History of hyponatremia 1200 cc fluid restriction Lamictal decreased to 50 mgs per psychiatry Follow labs Nephrology consult if needed History of psychogenic nonepileptic seizures No recent seizure activity reported Thank you for allowing me to participate in the care of this patient. Will follow with you, please notify medical provider with any changes in condition or concerns.
[2024-11-27 09:04] VITALS: BP 153/63; PULSE 78; RESP 14; TEMP 36.4; O2SAT 99
[2024-11-27 09:36] LABS: MANUAL DIFF FLAG NO
[2024-11-27 09:43] LABS: Hematocrit 36.5 % (37.0-47.0); Hemoglobin 13.1 g/dl (12.0-16.0); Imm Gran Abs Auto 0.04 X10*3/uL (0.00-0.03); Imm Gran Pct Auto 0.4 % (0.0-0.4); Lymphocytes Absolute Auto 2.5 X10*3/uL (1.2-4.9); Mean Corpuscular HGB Conc 35.9 g/dl (31.0-35.0); Mean Corpuscular Hemoglobin 30.5 pg (27.0-33.0); Mean Corpuscular Volume 84.9 fL (80.0-98.0); NRBC Abs Auto 0.000 X10*3/uL (0.0-0.012); NRBC Pct Auto 0.0 /100WBC (0.0-0.2); Platelet Count 279 X10*3/uL (160-400); Red Blood Count 4.30 X10*6/uL (4.20-5.50); White Blood Count 9.1 X10*3/uL (4.8-10.8)
[2024-11-27 10:19] LABS: Anion Gap 14 (12-20); Blood Urea Nitrogen 9 mg/dL (9-16); Calcium 9.2 mg/dL (8.4-10.2); Carbon Dioxide 22 mmol/L (22-29); Chloride 93 mmol/L (96-108); Creatinine Clr Calc Pharmacy 71.1; Estimated Glomerular Filt Rate > 60; Magnesium 1.9 mg/dL (1.6-2.6); Potassium 3.3 mmol/L (3.3-5.1); Sodium 126 mmol/L (135-145)
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
--- NOTE | 2024-11-27 12:13 | MHC.CLN ---
CONSULT PATIENT REPORTED WEIGHT LOSS. REVIEW OF WEIGHT HX SHOWS WEIGHT STABLE X 30 DAYS. WEIGHT LOSS X 8 MONTHS -11.9%, APPROX 16#. BMI WITHIN NORMAL LIMITS 21.2. DIET RX: REGULAR. PLEASE CONSULT RD IF POOR PO OR OTHER NUTRITION CONCERNS.
[2024-11-27 21:34] VITALS: BP 97/63; PULSE 100; RESP 18; TEMP 36.2; O2SAT 97
--- NOTE | 2024-11-28 08:00 | ECG_ITS ---
Test Reason : QTc monitoring, starting haldol Blood Pressure : */* mmHG Vent. Rate : 77 BPM Atrial Rate : 77 BPM P-R Int : 162 ms QRS Dur : 112 ms QT Int : 424 ms P-R-T Axes : 39 26 77 degrees QTcB Int : 479 ms Normal sinus rhythm Minimal voltage criteria for LVH, may be normal variant ( [place] product ) Anteroseptal infarct (cited on or before 25-Nov-2024) Abnormal ECG When compared with ECG of 25-Nov-2024 10:51, No significant changes seen Referred By: Sarah Rg Electronically Signed By: Bipin Pang
[2024-11-28 08:09] LABS: Anion Gap 15 (12-20); Blood Urea Nitrogen 10 mg/dL (9-16); Calcium 9.0 mg/dL (8.4-10.2); Carbon Dioxide 20 mmol/L (22-29); Chloride 94 mmol/L (96-108); Creatinine Clr Calc Pharmacy 76.8; Estimated Glomerular Filt Rate > 60; Potassium 3.6 mmol/L (3.3-5.1); Sodium 125 mmol/L (135-145)
[2024-11-28 08:16] VITALS: BP 125/64; PULSE 60; RESP 20; TEMP 36.4; O2SAT 99
[2024-11-28 08:30] LABS: Osmolality, Serum 261 mosm/kg (281-305)
--- NOTE | 2024-11-28 09:44 | PM.EVENT ---
Event Note Date of Service: 11/28/24 Event Note: follow up hyponatremia sodium 125 TSH wnl, serum osmolality 261, urine osmolality 354, no urine sodium obtained Discussed with Nephrology, start sodium chloride tablets 1gm BID and check BMP daily Time Spent With Patient Time: Total time managing care of this patient today ____ minutes.
[2024-11-28] MEDS: Sodium Chloride Tab 1 GM TABLET PO ×2 (10:48→21:35)
[2024-11-28] MEDS: Milk of Magnesia 30 ML ORAL.SUSP PO (13:50)
--- NOTE | 2024-11-28 20:38 | P.PNPSI_ITS ---
Subjective Subjective Date of Service: 11/28/24 Reason For Visit: Roz Subjective Notes: Section 12B Healthcare Proxy: No Guardianship: No Medical Problems Affecting Mental Status: Yes (Low sodium) Interim History: Medical record and nursing notes reviewed; case discussed during rounds with team/nursing staff, and met with patient for supportive therapy/psychoeducation, as well as medication management. Patient slept for 5 hours, reported that she does not feel good, perseverative on constipation. She is visible, restless, labile. Denies hallucinations and denies other safety concerns. Sodium is low, review with patient regarding the results which could affect her mental status. Hospitalist is aware, other the sodium chloride 1 1 g twice a day and repeat labs work tomorrow. Some abnormal EKG results. Medication Compliance: Yes Side effects from medications: No Attending Groups: Intermittent Review of Systems Acute medical concerns: No Medical Review of Systems: unchanged Review of Systems Review of Systems Denies any shortness of breath, chest pain, headaches, dysuria, abdominal pain or discomfort, nausea, vomiting or diarrhea. Denies fever or chills. Yes all other systems are reviewed and are negative Mental Status Exam Mental Status Exam Narrative: Attitude: otherwise cooperative Speech: hoarse, soft, staccato, understandable speech Motor activity: restless, anxious, racing thoughts Mood: anxious Affect: confused, labile Thought process: Disorganized, thought blocking Thought content: as noted above. Did not endorse violent ideation Perception: Denies AH/VH. seems to be distracted by internal stimuli. Observed self dialoguing/yelling at times Memory- unable to asses Insight: severe impairment Judgment: severe impairment Diagnostics Vital Signs (24Hr): Vital Signs - 24 hr 11/27/24 21:34 11/28/24 08:16 Temperature 97.1 F 97.6 F Pulse Rate 100 60 Respiratory Rate 18 20 Blood Pressure 97/63 125/64 Pulse Oximetry 97 99 Oxygen Delivery Method Room Air BMI result Body Mass Index 21.2 Labs 11/27/24 09:31 11/28/24 07:32 Labs: Laboratory Results - last 48 hr 11/27/24 11/27/24 11/28/24 09:30 09:31 07:32 WBC 9.1 RBC 4.30 Hgb 13.1 Hct 36.5 L MCV 84.9 MCH 30.5 MCHC 35.9 H RDW 12.0 Plt Count 279 MPV 9.6 Immature Gran % (Auto) 0.4 Neut % (Auto) 60.8 Lymph % (Auto) 27.1 Valley % (Auto) 7.6 Eos % (Auto) 3.7 Baso % (Auto) 0.4 Lymph # (Auto) 2.5 Valley # (Auto) 0.7 Eos # (Auto) 0.3 Baso # (Auto) 0.0 Abs Immat Gran (auto) 0.04 H Absolute Neuts (auto) 5.5 Absolute Nucleated RBC 0.000 Nucleated RBC % (auto) 0.0 Sodium 126 L 125 L Potassium 3.3 3.6 Chloride 93 L 94 L Carbon Dioxide 22 20 L Anion Gap 14 15 BUN 9 10 Creatinine 0.67 0.62 Estim Creat Clear Calc 71.1 76.8 Estimated GFR > 60 > 60 Random Glucose 109 92 Osmolality 261 L Calcium 9.2 9.0 Magnesium 1.9 TSH 2.58 Urine Osmolality Ur Random Sodium 11/28/24 08:01 WBC RBC Hgb Hct MCV MCH MCHC RDW Plt Count MPV Immature Gran % (Auto) Neut % (Auto) Lymph % (Auto) Valley % (Auto) Eos % (Auto) Baso % (Auto) Lymph # (Auto) Valley # (Auto) Eos # (Auto) Baso # (Auto) Abs Immat Gran (auto) Absolute Neuts (auto) Absolute Nucleated RBC Nucleated RBC % (auto) Sodium Potassium Chloride Carbon Dioxide Anion Gap BUN Creatinine Estim Creat Clear Calc Estimated GFR Random Glucose Osmolality Calcium Magnesium TSH Urine Osmolality 354 L Ur Random Sodium < 20.0 Medications Medications Current Medications Al Hydroxide/Mg Hydroxide (Magnesium Hydrox/Alum Hydrox 30 Ml Oral.Susp) 30 ml PO Q6H PRN PRN Reason: Heartburn/Nausea Atorvastatin Calcium (Atorvastatin Calcium 40 Mg Tablet) 40 mg PO DAILY [facility] Last Admin: 11/28/24 09:02 Dose: 40 mg Benztropine Mesylate (Benztropine Mesylate 0.5 Mg Tablet) 0.5 mg PO BEDTIME ADAN Last Admin: 11/27/24 21:36 Dose: 0.5 mg Carvedilol (Carvedilol 6.25 Mg Tablet) 18.75 mg PO BID [facility]; Protocol Last Admin: 11/28/24 09:02 Dose: 18.75 mg Clonidine HCl (Clonidine Hcl 0.1 Mg Tablet) 0.1 mg PO BID PRN; Protocol PRN Reason: Anxiety Docusate Sodium (Docusate Sodium 100 Mg Capsule) 100 mg PO BID [facility] Haloperidol (Haloperidol 5 Mg Tablet) 5 mg PO BEDTIME [facility] Last Admin: 11/27/24 21:36 Dose: 5 mg Haloperidol (Haloperidol 5 Mg Tablet) 5 mg PO ONCE PRN PRN Reason: moderate to severe agitation Last Admin: 11/28/24 18:47 Dose: 5 mg Lamotrigine (Lamotrigine 25 Mg Tablet) 50 mg PO DAILY [facility] Last Admin: 11/28/24 09:02 Dose: 50 mg Lorazepam (Lorazepam 1 Mg Tablet) 1 mg PO BID PRN PRN Reason: agitation, severe anxiety Last Admin: 11/28/24 15:22 Dose: 1 mg Lorazepam (Lorazepam 1 Mg Tablet) 1 mg PO BID [facility] Last Admin: 11/28/24 09:02 Dose: 1 mg Magnesium Hydroxide (Milk Of Magnesia 30 Ml Oral.Susp) 30 ml PO DAILY PRN PRN Reason: Constipation Last Admin: 11/28/24 13:50 Dose: 30 ml Melatonin (Melatonin 3 Mg Tablet) 9 mg PO BEDTIME ADAN Last Admin: 11/27/24 21:36 Dose: 9 mg Multivitamins/Vitamin C (Multivitamin Tablet) 1 tab PO DAILY [facility] Last Admin: 11/28/24 09:02 Dose: 1 tab Sodium Chloride (Sodium Chloride Tab 1 Gm Tablet) 1 gm PO BID [facility] Last Admin: 11/28/24 10:48 Dose: 1 gm Thiamine HCl (Thiamine Hcl 100 Mg Tablet) 100 mg PO DAILY [facility] Last Admin: 11/28/24 09:02 Dose: 100 mg Zolpidem Tartrate (Zolpidem Tartrate 5 Mg Tablet) 5 mg PO BEDTIME PRN PRN Reason: Insomnia Allergies Allergies Allergy/AdvReac Type Severity Reaction Status Date / Time olanzapine AdvReac Severe visual Verified 11/25/24 06:23 changes carbamazepine (From Tegretol) AdvReac Intermediate Hyponatremi Verified 11/25/24 06:23 a divalproex sodium (From AdvReac Mild hyperammone Verified 11/25/24 06:23 Depakote) yoan gabapentin AdvReac Mild Unknown Verified 11/25/24 06:23 trazodone AdvReac Mild groggy Verified 11/25/24 06:23 Assessment & Plan Assessment & Plan (1) Bipolar I, recurrent manic episode, severe with psychotic behavior: Status: Acute Code(s): F31.2 - Bipolar disorder, current episode manic severe with psychotic features (2) Hyponatremia: Status: Acute Code(s): E87.1 - Hypo-osmolality and hyponatremia (3) PTSD (post-traumatic stress disorder): Status: Acute Code(s): F43.10 - Post-traumatic stress disorder, unspecified Plan Ms. Pinto is a 64 yo F with h/o bipolar d/o, PTSD, chronic hyponatremia & PNES who was brought to the [facility] by ambulance after her brother called 911 due to her erratic behavior, poor oral intake and med nonadherence. She was medically admitted from 11/25-11/26 and transferred to [facility] on 11/26/24 on a section 12B. Pt presents today w/ sx of roz, disorganized thought process/behavior, hoarse speech and self dialoguing. She is hyponatremic, which could contribute to her current presentation, in addition to being off of her psych meds. Plan: Admitted to for safety and stabilization Legal status- 12B expires , 12/01. Will likely need to pursue section 7/8. Bui warning given 5 min safety checks due to disorganized/agitated behavior Admission medical consultation done by hospitalist. Labs, VS and EKG reviewed. Nephrology was consulted for mgmt of hyponatremia. Hyponatremia-- start fluid restriction - 1200 ml/day. Tapered lamotrigine from 100 mg to 50 mg qd since it can cause/contribute to . hyponatremia. Will start the following meds based med regimen rx'd at most recent admission here- haldol 5 mg qhs. Ordered EKG to check QTc tomorrow am lorazepam 1 mg bid standing dose + 1 mg bid prn for agitation/anxiety zolpidem 5 mg qhs prn for insomnia melatonin 9 mg qhs 11/28/24: Patient slept for 5 hours, reported that she does not feel good, perseverative on constipation. She is visible, restless, labile. Denies hallucinations and denies other safety concerns. Sodium is low -125-126, review with patient regarding the results which could affect her mental status.Poor meal and fluid intake. Remain on Fluid restriction. Hospitalist is aware, ordered the sodium chloride 1 g twice a day and repeat labs work tomorrow. Some abnormal EKG results. QTc WNL. Discontinue trazodone.- allergic. Patient educated on: diagnosis, medication risk/benefits and therapeutic strategies Informed Consent: further education needed Reason for continued inpatient stay Substantial Risk for: med/psych decompensation Time Spent With Patient Time: Total time managing care of this patient today ____ minutes.
[2024-11-28 21:23] VITALS: BP 112/58; PULSE 70; RESP 17; TEMP 37; O2SAT 99
--- NOTE | 2024-11-29 01:39 | PC.NURSE ---
c/o lightheadedness-at approximately 0030 patient used call archuleta in the bathroom. patient was found sitting in the toilet with his clothing on, pants up. patient reported he had fallen. when asked how he was able to get up from the floor stated ''well, I didn't fall but I feel lightheaded'' ''I was going to the bathroom and I peed on myself'' clothing was noted to be wet. declined shower and was assisted in being cleaned up and clothing changed. patient participated in activity. orthos taken sitting 113/58, 83, 17, 98% standing 90/60, 92, 17, 99%. patient had medication changes having been started on gabapentin today. after VS taken patient drank water and layed himself in bed. no c/o dizziness when in supine position. placed on 1:1. Dr. Mcdaniel notified.
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
[2024-11-29 08:00] VITALS: BP 122/70; PULSE 75; RESP 16; TEMP 36.2; O2SAT 99
[2024-11-29 08:09] VITALS: BP 122/70; PULSE 75; RESP 16; TEMP 36.2; O2SAT 99
[2024-11-29] MEDS: Sodium Chloride Tab 1 GM TABLET PO ×2 (08:46→21:18)
[2024-11-29 10:07] LABS: Anion Gap 15 (12-20); Blood Urea Nitrogen 7 mg/dL (9-16); Calcium 8.9 mg/dL (8.4-10.2); Carbon Dioxide 23 mmol/L (22-29); Chloride 96 mmol/L (96-108); Creatinine Clr Calc Pharmacy 82.1; Estimated Glomerular Filt Rate > 60; Potassium 3.6 mmol/L (3.3-5.1); Sodium 130 mmol/L (135-145)
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
[2024-11-29 21:16] VITALS: BP 138/74; PULSE 102; RESP 18; TEMP 36.8; O2SAT 95
--- NOTE | 2024-11-30 | ECG_ITS ---
Test Reason : QTC CHECK Blood Pressure : */* mmHG Vent. Rate : 83 BPM Atrial Rate : 83 BPM P-R Int : 160 ms QRS Dur : 106 ms QT Int : 374 ms P-R-T Axes : 50 -15 95 degrees QTcB Int : 439 ms Normal sinus rhythm Anteroseptal infarct (cited on or before 25-Nov-2024) Incomplete left bundle branch block Abnormal ECG When compared with ECG of 28-Nov-2024 12:09, No significant change was found Referred By: Sarah Rg Electronically Signed By: THERESA NANCE MD
--- NOTE | 2024-11-30 08:18 | P.PNIM_ITS ---
Subjective Subjective Date of Service: 11/30/24 Interval History: She was seen in follow up for hyponatremia, sodium has stabilized. She denies any shortness of breath, dizziness, or any other concerning symptoms. Patient's voice is clear, she is more organized. Answering questions. Review of Systems Denies any shortness of breath, chest pain, headaches, dysuria, abdominal pain or discomfort, nausea, vomiting or diarrhea. Physical Exam 2 Exam: Exam: CONST: Alert and oriented, in NAD. Thin HEENT: Normocephalic, atraumatic, MMM, Eyes clear RESP: Lungs clear, RRR even and regular HEART:,RRR, S1, S2. No edema GI:Abdomen Soft NT, ND. + BS times four :Deferred SKIN: Warm dry and intact, no visible lesions or rashes NEURO:CN II-XII Intact bilaterally, Sensation intact. Speech clear, not whispering. PSYCH: Calmer, more organized, occasional paranoid statements. Vital Signs: Vital Signs: Last Vital Signs Temp 98.2 F 11/29/24 21:16 Pulse 102 H 11/29/24 21:16 Resp 18 11/29/24 21:16 BP 138/74 11/29/24 21:16 Pulse Ox 95 11/29/24 21:16 O2 Del Method Room Air 11/29/24 21:16 BMI result Body Mass Index 21.2 Objective Data Active Medications Acetaminophen (Acetaminophen 325 Mg Tablet) 650 mg PO Q6H PRN PRN Reason: Pain, Mild (Pain Scale 1-3) Al Hydroxide/Mg Hydroxide (Magnesium Hydrox/Alum Hydrox 30 Ml Oral.Susp) 30 ml PO Q6H PRN PRN Reason: Heartburn/Nausea Atorvastatin Calcium (Atorvastatin Calcium 40 Mg Tablet) 40 mg PO DAILY [facility] Last Admin: 11/29/24 08:46 Dose: 40 mg Documented By: NELY Benztropine Mesylate (Benztropine Mesylate 0.5 Mg Tablet) 0.5 mg PO BEDTIME [facility] Last Admin: 11/29/24 21:22 Dose: Not Given Documented By: SERVANDO Non-Admin Reason: Patient Refused Carvedilol (Carvedilol 6.25 Mg Tablet) 18.75 mg PO BID [facility]; Protocol Last Admin: 11/29/24 21:18 Dose: 18.75 mg Documented By: SERVANDO Clonidine HCl (Clonidine Hcl 0.1 Mg Tablet) 0.1 mg PO BID PRN; Protocol PRN Reason: Anxiety Docusate Sodium (Docusate Sodium 100 Mg Capsule) 100 mg PO BID [facility] Last Admin: 11/29/24 21:18 Dose: 100 mg Documented By: SERVANDO Haloperidol (Haloperidol 5 Mg Tablet) 5 mg PO BEDTIME [facility] Last Admin: 11/29/24 21:23 Dose: Not Given Documented By: SERVANDO Non-Admin Reason: Patient Refused Haloperidol (Haloperidol 5 Mg Tablet) 5 mg PO ONCE PRN PRN Reason: moderate to severe agitation Last Admin: 11/28/24 18:47 Dose: 5 mg Documented By: MAGDA Haloperidol (Haloperidol 5 Mg Tablet) 5 mg PO BID PRN PRN Reason: Psychosis Last Admin: 11/29/24 16:06 Dose: 5 mg Documented By: JOSIAH Lamotrigine (Lamotrigine 25 Mg Tablet) 50 mg PO DAILY [facility] Last Admin: 11/29/24 08:46 Dose: 50 mg Documented By: NELY Lorazepam (Lorazepam 1 Mg Tablet) 1 mg PO BID PRN PRN Reason: agitation, severe anxiety Last Admin: 11/29/24 06:12 Dose: 1 mg Documented By: ERNESTINA Lorazepam (Lorazepam 1 Mg Tablet) 1 mg PO BID [facility] Last Admin: 11/29/24 21:18 Dose: 1 mg Documented By: SERVANDO Magnesium Hydroxide (Milk Of Magnesia 30 Ml Oral.Susp) 30 ml PO DAILY PRN PRN Reason: Constipation Last Admin: 11/28/24 13:50 Dose: 30 ml Documented By: MAGDA Melatonin (Melatonin 3 Mg Tablet) 9 mg PO BEDTIME [facility] Last Admin: 11/29/24 21:17 Dose: 9 mg Documented By: SERVANDO Multivitamins/Vitamin C (Multivitamin Tablet) 1 tab PO DAILY [facility] Last Admin: 11/29/24 08:46 Dose: 1 tab Documented By: NELY Sodium Chloride (Sodium Chloride Tab 1 Gm Tablet) 1 gm PO BID [facility] Last Admin: 11/29/24 21:18 Dose: 1 gm Documented By: SERVANDO Thiamine HCl (Thiamine Hcl 100 Mg Tablet) 100 mg PO DAILY [facility] Last Admin: 11/29/24 08:46 Dose: 100 mg Documented By: NELY Zolpidem Tartrate (Zolpidem Tartrate 5 Mg Tablet) 5 mg PO BEDTIME PRN PRN Reason: Insomnia Labs 11/27/24 09:31 11/30/24 12:50 Labs: Laboratory Results - last 24 hr 11/29/24 11/29/24 08:34 08:35 Hold Purple Top SEE NOTE Anion Gap 15 Estim Creat Clear Calc 82.1 Estimated GFR > 60 Random Glucose 113 Calcium 8.9 Assessment and Plan (1) Hyponatremia: Status: Acute Plan 64-year-old female admitted from the medical floor after she presented to the ED with erratic behavior. She is now admitted to the medical floor for further stabilization Bipolar disorder with rj/PTSD Treatment per psychiatric team Hyperlipidemia/hypertension Continue with Coreg and atorvastatin Hyponatremia History of hyponatremia 1200 cc fluid restriction Lamictal decreased to 50 mgs per psychiatry TSH WNL, serum osmolality 261, urine osmolality 354, Random sodium <20 Continue sodium chloride tablets 1gm BID and check BMP daily. Normal today Nephrology consult if needed History of psychogenic nonepileptic seizures No recent seizure activity reported Thank you for allowing me to participate in the care of this patient. Will follow with you, please notify medical provider with any changes in condition or concerns. Quality Stroke Does the patient have a stroke diagnosis?: No VTE Prior VTE?: No VTE Risk Level:: Medical - low VTE Device Contraindication: Treatment Not Indicated VTE Drug Contraindication: Treatment Not Indicated
[2024-11-30 08:30] VITALS: BP 132/73; PULSE 78; RESP 16; TEMP 36.6; O2SAT 98
[2024-11-30 08:54] VITALS: BP 132/73; PULSE 78
[2024-11-30] MEDS: Sodium Chloride Tab 1 GM TABLET PO ×2 (08:56→22:07)
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
[2024-11-30 13:27] LABS: Anion Gap 14 (12-20); Blood Urea Nitrogen 7 mg/dL (9-16); Calcium 9.3 mg/dL (8.4-10.2); Carbon Dioxide 26 mmol/L (22-29); Chloride 101 mmol/L (96-108); Creatinine Clr Calc Pharmacy 79.3; Estimated Glomerular Filt Rate > 60; Potassium 4.4 mmol/L (3.3-5.1); Sodium 137 mmol/L (135-145)
[2024-11-30 16:00] VITALS: BP 183/77
[2024-11-30 16:01] VITALS: BP 183/91; PULSE 83; RESP 16; TEMP 36.8; O2SAT 95
[2024-11-30 21:59] VITALS: BP 187/91; PULSE 83; RESP 16; TEMP 36.6; O2SAT 96
[2024-12-01 08:00] VITALS: BP 159/85; PULSE 77; RESP 16; TEMP 36.2; O2SAT 99
[2024-12-01] MEDS: Sodium Chloride Tab 1 GM TABLET PO ×2 (08:47→20:17)
[2024-12-01 10:06] LABS: Anion Gap 13 (12-20); Blood Urea Nitrogen 7 mg/dL (9-16); Calcium 9.6 mg/dL (8.4-10.2); Carbon Dioxide 26 mmol/L (22-29); Chloride 101 mmol/L (96-108); Creatinine Clr Calc Pharmacy 71.1; Estimated Glomerular Filt Rate > 60; Potassium 3.8 mmol/L (3.3-5.1); Sodium 136 mmol/L (135-145)
--- NOTE | 2024-12-01 15:10 | PC.NURSE ---
Pt reports that she feels like she is getting a UTI. Denies symptoms at this time. Reported to provider via [facility].
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
[2024-12-01 18:53] LABS: Appearance Urine Clear; Glucose Urine UA Negative (Negative); PH 7.5 (5.0-9.0); Specific Gravity - Urine <= 1.005 (1.005-1.025); UMIC TRIGGER UA YES
[2024-12-01 20:00] VITALS: BP 179/89; PULSE 89; RESP 18; TEMP 36.7; O2SAT 98
[2024-12-01 23:00] VITALS: BP 137/73; PULSE 73
[2024-12-02 07:36] VITALS: BP 135/63; PULSE 85; RESP 16; TEMP 36.4; O2SAT 97
[2024-12-02 08:42] VITALS: BP 135/63; PULSE 85
[2024-12-02] MEDS: Sodium Chloride Tab 1 GM TABLET PO (08:45)
--- NOTE | 2024-12-02 09:56 | P.PNPSI_ITS ---
Subjective Subjective Date of Service: 12/02/24 Reason For Visit: Rj Interim History: Chart reviewed, bao discussed with tx team Pt asked for the phone number to [employer] in [place], as she thinks she may have been scammed and wanted to check her account. She didn't provide any reason as to why she suspected that she was scammed. She endorses dizziness when waking up, attributes to one of her nighttime meds. States that she woke up dizzy in middle of the night and had a poor night's sleep for first time here. Slept 5 hrs per nurse. Otherwise denies any concerns. She states I know the date is 12/02/24 . I know the last 4 presidents ... Trump, Biden, Obama and Trump again Meds received last night- NaCl 1 g docusate melatonin 9 mg (home med) lorazepam .5 mg (took clonazepam .5 mg at hs at home) benztropine .5 mg (home med-- unclear why she's on it since she's not on an AP) Mental Status Exam Mental Status Exam Narrative: Appearance: Grooming/hygiene wnl. good eye contact Attitude:Cooperative Speech: Fluent and wnl in regard to volume, tone, prosody Motor activity: Calm and without any tics, tremors or dyskinesias. Mood: good so far Affect: appropriate, reactive, generally bright Thought process: Generally goal directed Thought content: Denies SI, no violent ideation reported Perception: Does not appear to respond to internal stim Insight: fair Judgment: fair Diagnostics Vital Signs (24Hr): Vital Signs - 24 hr 12/01/24 20:00 12/01/24 23:00 12/02/24 07:36 Temperature 98.0 F 97.6 F Pulse Rate 89 73 85 Respiratory Rate 18 16 Blood Pressure 179/89 H 137/73 135/63 Pulse Oximetry 98 97 Oxygen Delivery Method Room Air Room Air 12/02/24 08:42 Temperature Pulse Rate 85 Respiratory Rate Blood Pressure 135/63 Pulse Oximetry Oxygen Delivery Method BMI result Body Mass Index 21.2 Labs 11/27/24 09:31 12/01/24 09:10 Labs: Laboratory Results - last 48 hr 11/30/24 12/01/24 12/01/24 12:50 09:10 18:15 Sodium 137 136 Potassium 4.4 D 3.8 Chloride 101 101 Carbon Dioxide 26 26 Anion Gap 14 13 BUN 7 L 7 L Creatinine 0.60 0.67 Estim Creat Clear Calc 79.3 71.1 Estimated GFR > 60 > 60 Random Glucose 111 115 Calcium 9.3 9.6 Urine Color Yellow Urine Appearance Clear Urine pH 7.5 Ur Specific [place] <= 1.005 Urine Protein Negative Urine Glucose (UA) Negative Urine Ketones Negative Urine Blood Negative Urine Nitrite Negative Ur Leukocyte Esterase Trace H Urine RBC 0-2 Urine WBC 6-10 H Ur Squamous Epith Cells 0-2 Urine Bacteria None Seen Hyaline Casts 0-2 Medications Medications Current Medications Acetaminophen (Acetaminophen 325 Mg Tablet) 650 mg PO Q6H PRN PRN Reason: Pain, Mild (Pain Scale 1-3) Al Hydroxide/Mg Hydroxide (Magnesium Hydrox/Alum Hydrox 30 Ml Oral.Susp) 30 ml PO Q6H PRN PRN Reason: Heartburn/Nausea Atorvastatin Calcium (Atorvastatin Calcium 40 Mg Tablet) 40 mg PO DAILY [facility] Last Admin: 12/02/24 09:28 Dose: Not Given Benztropine Mesylate (Benztropine Mesylate 0.5 Mg Tablet) 0.5 mg PO BEDTIME [facility] Last Admin: 12/01/24 20:18 Dose: 0.5 mg Carvedilol (Carvedilol 6.25 Mg Tablet) 18.75 mg PO BID [facility]; Protocol Last Admin: 12/02/24 08:42 Dose: 18.75 mg Clonidine HCl (Clonidine Hcl 0.1 Mg Tablet) 0.1 mg PO BID PRN; Protocol PRN Reason: Anxiety Last Admin: 11/30/24 16:00 Dose: 0.1 mg Docusate Sodium (Docusate Sodium 100 Mg Capsule) 100 mg PO BID [facility] Last Admin: 12/02/24 08:45 Dose: 100 mg Haloperidol (Haloperidol 5 Mg Tablet) 5 mg PO ONCE PRN PRN Reason: moderate to severe agitation Last Admin: 11/28/24 18:47 Dose: 5 mg Haloperidol (Haloperidol 5 Mg Tablet) 5 mg PO BID PRN PRN Reason: Psychosis Last Admin: 11/29/24 16:06 Dose: 5 mg Lamotrigine (Lamotrigine 25 Mg Tablet) 50 mg PO DAILY [facility] Last Admin: 12/02/24 08:44 Dose: 50 mg Lorazepam (Lorazepam 1 Mg Tablet) 1 mg PO BID PRN PRN Reason: agitation, severe anxiety Last Admin: 12/02/24 03:33 Dose: 1 mg Lorazepam (Lorazepam 0.5 Mg Tablet) 0.5 mg PO BID [facility] Last Admin: 12/02/24 08:45 Dose: 0.5 mg Magnesium Hydroxide (Milk Of Magnesia 30 Ml Oral.Susp) 30 ml PO DAILY PRN PRN Reason: Constipation Last Admin: 11/28/24 13:50 Dose: 30 ml Melatonin (Melatonin 3 Mg Tablet) 9 mg PO BEDTIME [facility] Last Admin: 12/01/24 20:18 Dose: 9 mg Multivitamins/Vitamin C (Multivitamin Tablet) 1 tab PO DAILY [facility] Last Admin: 12/02/24 08:43 Dose: 1 tab Sodium Chloride (Sodium Chloride Tab 1 Gm Tablet) 1 gm PO BID [facility] Last Admin: 12/02/24 08:45 Dose: 1 gm Thiamine HCl (Thiamine Hcl 100 Mg Tablet) 100 mg PO DAILY [facility] Last Admin: 12/02/24 08:43 Dose: 100 mg Zolpidem Tartrate (Zolpidem Tartrate 5 Mg Tablet) 5 mg PO BEDTIME PRN PRN Reason: Insomnia Allergies Allergies Allergy/AdvReac Type Severity Reaction Status Date / Time olanzapine AdvReac Severe visual Verified 11/25/24 06:23 changes carbamazepine (From Tegretol) AdvReac Intermediate Hyponatremi Verified 11/25/24 06:23 a divalproex sodium (From AdvReac Mild hyperammone Verified 11/25/24 06:23 Depakote) yoan gabapentin AdvReac Mild Unknown Verified 11/25/24 06:23 trazodone AdvReac Mild groggy Verified 11/25/24 06:23 Assessment & Plan Assessment & Plan (1) Bipolar I, recurrent manic episode, severe with psychotic behavior: Status: Acute Code(s): F31.2 - Bipolar disorder, current episode manic severe with psychotic features (2) Hyponatremia: Status: Acute Code(s): E87.1 - Hypo-osmolality and hyponatremia (3) PTSD (post-traumatic stress disorder): Status: Acute Code(s): F43.10 - Post-traumatic stress disorder, unspecified Plan Ms. Pinto is a 64 yo F with h/o bipolar d/o, PTSD, chronic hyponatremia & PNES who was brought to the [facility] by ambulance after her brother called 911 due to her erratic behavior, poor oral intake and med nonadherence. She was medically admitted from 11/25-11/26 and transferred to [facility] on 11/26/24 on a section 12B. Pt presents today w/ sx of rj, disorganized thought process/behavior, hoarse speech and self dialoguing. She is hyponatremic, which could contribute to her current presentation, in addition to being off of her psych meds. Plan: Admitted to for safety and stabilization Legal status- 12B expires , 12/01. Will likely need to pursue section 7/8. Bui warning given 5 min safety checks due to disorganized/agitated behavior Admission medical consultation done by hospitalist. Labs, VS and EKG reviewed. Nephrology was consulted for mgmt of hyponatremia. Hyponatremia-- start fluid restriction - 1200 ml/day. Tapered lamotrigine from 100 mg to 50 mg qd since it can cause/contribute to . hyponatremia. Will start the following meds based med regimen rx'd at most recent admission here- haldol 5 mg qhs. Ordered EKG to check QTc tomorrow am lorazepam 1 mg bid standing dose + 1 mg bid prn for agitation/anxiety zolpidem 5 mg qhs prn for insomnia melatonin 9 mg qhs 11/28/24: Patient slept for 5 hours, reported that she does not feel good, perseverative on constipation. She is visible, restless, labile. Denies hallucinations and denies other safety concerns. Sodium is low -125-126, review with patient regarding the results which could affect her mental status.Poor meal and fluid intake. Remain on Fluid restriction. Hospitalist is aware, ordered the sodium chloride 1 g twice a day and repeat labs work tomorrow. Some abnormal EKG results. QTc WNL. Discontinue trazodone.- allergic. 11/29/24: Medication compliant, no side effects. Less labile compared to yesterday. Can be psychotic. Last BM last night. Patient was yelling out loud [employer]- her insurance. Report mood is tired and think she is homeless d/t insurance issues and someone stole money out of my bank . Report to this provider that she fell in the bathroom this morning hitting her back. Denies pain. Do not remember exactly when she fell. Per nursing, patient looks for her son at the chair who was not there and hearing someone calling her and was exit seeking yesterday. Continue to monitor for mental status change, Sodium 130 and BUN 7 this morning. Remain on fluid restriction. Haldol 5mg BID PRN for psychosis. 11/30/24: Mental status has significantly improved, coinciding w/ normalization of sodium this am. Will lower haldol to 2.5 mg tonigiht, given c/o dizziness and orthostatic hypotension this am. Continue fluid restriction and salt tablets for now. Continue daily sodium monitoring. Continue 5 min safety checks due to fall risk. Advised pt to avoid walking if she is feeling unsteady and ask staff for assistance. -Will reach out to pt's outpatient psychiatric provider tomorrow 12/01: Mental status has improved overall. Na++ wnl x 2 days. Per my discussion w/ hospitalist, will try lowering the dose of the Na tablet, continue fluid restrictions for now. Will d/c haldol per pt request, given that her presentation on admission was most likely related to hyponatremia. *Still need to contact pt's outpatient psychiatric provider for care coordination. 12.02: Mental status continues to improve. Ordered sodium for today- will taper NaCl if wnl. Continues to endorse dizziness but seems to be improving overall. She's been ctd on benztropine .5 mg, which is a home medication but she's not on an AP and doesn't have EPS. Will d/c the benztropine since it could be contributing to the dizziness. Left message with pt's outpatient psychiatric provider, Yesika Camacho NP, at [facility] for at [phone] for care coordination. Faxed release Patient educated on: medication risk/benefits and medical condition Reason for continued inpatient stay Substantial Risk for: med/psych decompensation Time Spent With Patient Time: Total time managing care of this patient today __25__ minutes.
[2024-12-02 10:56] LABS: Anion Gap 14 (12-20); Carbon Dioxide 25 mmol/L (22-29); Chloride 102 mmol/L (96-108); Potassium 4.0 mmol/L (3.3-5.1); Sodium 137 mmol/L (135-145)
--- NOTE | 2024-12-02 15:04 | P.PNPSI_ITS ---
Subjective Subjective Date of Service: 12/02/24 Reason For Visit: Rj Interim History: Chart reviewed, case discussed with tx team Pt didn't sleep well last night, c/o feeling dizzy. She asks t/w for the phone number for [employer] in [place], as she's concerned that someone is scamming here Spoke with pt's outpatient psychiatric provider, Yesika Camacho NP (working w/ pt since 2020) and updated her on pt's presentation, including the hyponatremia and having to taper the lamotrigine Per Ms. Camacho, pt has - h/o being floridly manic (outside of hyponatremia) h/o haldol, clonazepam (o/d requiring ICU--clonazepam now locked up at home ), olanzapine-- very stable x long x but gained 10 lb risperidone, abilify, seroquel (dry eyes), caplyta--affected bladder/excessive urination ambien, lunesta, amitriptyline-- didn't work for sleep Hasn't tried Latuda Hasn't tried VPA or lithium to Ms. Mendez's knowledge No h/o ECT Pt has been very resistant to taking medications due to concerns about SE. Pt has hung up on telepsych calls/walks out of the office for in person visits, and has fired Ms. Mendez multiple x. Pt handed her phone to Ms. Mendez at one appt and asked her to hide it, tht people were spying on her. Ms. Mendez doesn't have much information on the hyponatremia hx but believes that pt has seen a graduate student instructor in the past. Diagnostics Vital Signs (24Hr): Vital Signs - 24 hr 12/01/24 20:00 12/01/24 23:00 12/02/24 07:36 Temperature 98.0 F 97.6 F Pulse Rate 89 73 85 Respiratory Rate 18 16 Blood Pressure 179/89 H 137/73 135/63 Pulse Oximetry 98 97 Oxygen Delivery Method Room Air Room Air 12/02/24 08:42 Temperature Pulse Rate 85 Respiratory Rate Blood Pressure 135/63 Pulse Oximetry Oxygen Delivery Method BMI result Body Mass Index 21.2 Labs 11/27/24 09:31 12/04/24 13:08 Labs: Laboratory Results - last 48 hr 12/01/24 12/01/24 12/02/24 09:10 18:15 10:38 Sodium 136 137 Potassium 3.8 4.0 Chloride 101 102 Carbon Dioxide 26 25 Anion Gap 13 14 BUN 7 L Creatinine 0.67 Estim Creat Clear Calc 71.1 Estimated GFR > 60 Random Glucose 115 Calcium 9.6 Urine Color Yellow Urine Appearance Clear Urine pH 7.5 Ur Specific [place] <= 1.005 Urine Protein Negative Urine Glucose (UA) Negative Urine Ketones Negative Urine Blood Negative Urine Nitrite Negative Ur Leukocyte Esterase Trace H Urine RBC 0-2 Urine WBC 6-10 H Ur Squamous Epith Cells 0-2 Urine Bacteria None Seen Hyaline Casts 0-2 Medications Medications Current Medications Acetaminophen (Acetaminophen 325 Mg Tablet) 650 mg PO Q6H PRN PRN Reason: Pain, Mild (Pain Scale 1-3) Al Hydroxide/Mg Hydroxide (Magnesium Hydrox/Alum Hydrox 30 Ml Oral.Susp) 30 ml PO Q6H PRN PRN Reason: Heartburn/Nausea Atorvastatin Calcium (Atorvastatin Calcium 40 Mg Tablet) 40 mg PO DAILY [facility] Last Admin: 12/02/24 09:28 Dose: Not Given Carvedilol (Carvedilol 6.25 Mg Tablet) 18.75 mg PO BID [facility]; Protocol Last Admin: 12/02/24 08:42 Dose: 18.75 mg Clonidine HCl (Clonidine Hcl 0.1 Mg Tablet) 0.1 mg PO BID PRN; Protocol PRN Reason: Anxiety Last Admin: 11/30/24 16:00 Dose: 0.1 mg Docusate Sodium (Docusate Sodium 100 Mg Capsule) 100 mg PO BID [facility] Last Admin: 12/02/24 08:45 Dose: 100 mg Haloperidol (Haloperidol 5 Mg Tablet) 5 mg PO ONCE PRN PRN Reason: moderate to severe agitation Last Admin: 11/28/24 18:47 Dose: 5 mg Haloperidol (Haloperidol 5 Mg Tablet) 5 mg PO BID PRN PRN Reason: Psychosis Last Admin: 11/29/24 16:06 Dose: 5 mg Lamotrigine (Lamotrigine 25 Mg Tablet) 50 mg PO DAILY [facility] Last Admin: 12/02/24 08:44 Dose: 50 mg Lorazepam (Lorazepam 1 Mg Tablet) 1 mg PO BID PRN PRN Reason: agitation, severe anxiety Last Admin: 12/02/24 03:33 Dose: 1 mg Lorazepam (Lorazepam 0.5 Mg Tablet) 0.5 mg PO BID [facility] Last Admin: 12/02/24 08:45 Dose: 0.5 mg Magnesium Hydroxide (Milk Of Magnesia 30 Ml Oral.Susp) 30 ml PO DAILY PRN PRN Reason: Constipation Last Admin: 11/28/24 13:50 Dose: 30 ml Melatonin (Melatonin 3 Mg Tablet) 9 mg PO BEDTIME [facility] Last Admin: 12/01/24 20:18 Dose: 9 mg Multivitamins/Vitamin C (Multivitamin Tablet) 1 tab PO DAILY [facility] Last Admin: 12/02/24 08:43 Dose: 1 tab Sodium Chloride (Sodium Chloride Tab 1 Gm Tablet) 1 gm PO BID [facility] Last Admin: 12/02/24 08:45 Dose: 1 gm Thiamine HCl (Thiamine Hcl 100 Mg Tablet) 100 mg PO DAILY [facility] Last Admin: 12/02/24 08:43 Dose: 100 mg Zolpidem Tartrate (Zolpidem Tartrate 5 Mg Tablet) 5 mg PO BEDTIME PRN PRN Reason: Insomnia Allergies Allergies Allergy/AdvReac Type Severity Reaction Status Date / Time olanzapine AdvReac Severe visual Verified 11/25/24 06:23 changes carbamazepine (From Tegretol) AdvReac Intermediate Hyponatremi Verified 11/25/24 06:23 a divalproex sodium (From AdvReac Mild hyperammone Verified 11/25/24 06:23 Depakote) yoan gabapentin AdvReac Mild Unknown Verified 11/25/24 06:23 trazodone AdvReac Mild groggy Verified 11/25/24 06:23 Assessment & Plan Assessment & Plan (1) Bipolar I, recurrent manic episode, severe with psychotic behavior: Status: Acute Code(s): F31.2 - Bipolar disorder, current episode manic severe with psychotic features (2) Hyponatremia: Status: Resolved Code(s): E87.1 - Hypo-osmolality and hyponatremia (3) PTSD (post-traumatic stress disorder): Status: Inactive Code(s): F43.10 - Post-traumatic stress disorder, unspecified Plan Ms. Pinto is a 64 yo F with h/o bipolar d/o, PTSD, chronic hyponatremia & PNES who was brought to the [facility] ED by ambulance after her brother called 911 due to her erratic behavior, poor oral intake and med nonadherence. She was medically admitted from 11/25-11/26 and transferred to [facility] on 11/26/24 on a section 12B. Pt presents today w/ sx of rj, disorganized thought process/behavior, hoarse speech and self dialoguing. She is hyponatremic, which could contribute to her current presentation, in addition to being off of her psych meds. Plan: Admitted to for safety and stabilization Legal status- 12B expires , 12/01. Will likely need to pursue section 7/8. Bui warning given 5 min safety checks due to disorganized/agitated behavior Admission medical consultation done by hospitalist. Labs, VS and EKG reviewed. Nephrology was consulted for mgmt of hyponatremia. Hyponatremia-- start fluid restriction - 1200 ml/day. Tapered lamotrigine from 100 mg to 50 mg qd since it can cause/contribute to . hyponatremia. Will start the following meds based med regimen rx'd at most recent admission here- haldol 5 mg qhs. Ordered EKG to check QTc tomorrow am lorazepam 1 mg bid standing dose + 1 mg bid prn for agitation/anxiety zolpidem 5 mg qhs prn for insomnia melatonin 9 mg qhs 11/28/24: Patient slept for 5 hours, reported that she does not feel good, perseverative on constipation. She is visible, restless, labile. Denies hallucinations and denies other safety concerns. Sodium is low -125-126, review with patient regarding the results which could affect her mental status.Poor meal and fluid intake. Remain on Fluid restriction. Hospitalist is aware, ordered the sodium chloride 1 g twice a day and repeat labs work tomorrow. Some abnormal EKG results. QTc WNL. Discontinue trazodone.- allergic. 11/29/24: Medication compliant, no side effects. Less labile compared to yesterday. Can be psychotic. Last BM last night. Patient was yelling out loud [employer]- her insurance. Report mood is tired and think she is homeless d/t insurance issues and someone stole money out of my bank . Report to this provider that she fell in the bathroom this morning hitting her back. Denies pain. Do not remember exactly when she fell. Per nursing, patient looks for her son at the chair who was not there and hearing someone calling her and was exit seeking yesterday. Continue to monitor for mental status change, Sodium 130 and BUN 7 this morning. Remain on fluid restriction. Haldol 5mg BID PRN for psychosis. 11/30/24: Mental status has significantly improved, coinciding w/ normalization of sodium this am. Will lower haldol to 2.5 mg tonigiht, given c/o dizziness and orthostatic hypotension this am. Continue fluid restriction and salt tablets for now. Continue daily sodium monitoring. Continue 5 min safety checks due to fall risk. Advised pt to avoid walking if she is feeling unsteady and ask staff for assistance. -Will reach out to pt's outpatient psychiatric provider tomorrow 12/01: Mental status has improved overall. Na++ wnl x 2 days. Per my discussion w/ hospitalist, will try lowering the dose of the Na tablet, continue fluid restrictions for now. Will d/c haldol per pt request, given that her presentation on admission was most likely related to hyponatremia. *Still need to contact pt's outpatient psychiatric provider for care coordination. 12.02: Mental status continues to improve. Ordered sodium for today- will taper NaCl if wnl. Continues to endorse dizziness but seems to be improving overall. She's been ctd on benztropine .5 mg, which is a home medication but she's not on an AP and doesn't have EPS. Will d/c the benztropine since it could be contributing to the dizziness. Left message with pt's outpatient psychiatric provider, Yesika Camacho NP, at [facility] for at [phone] for care coordination. Faxed release Time Spent With Patient Time: Total time managing care of this patient today ____ minutes.
[2024-12-02 20:00] VITALS: BP 148/82; PULSE 97; RESP 20; TEMP 36.2; O2SAT 95
[2024-12-02 20:01] VITALS: BP 148/82; PULSE 97
[2024-12-02] MEDS: Sodium Chloride Tab 1 GM TABLET 0.5 GM PO (20:03)
[2024-12-03 07:00] VITALS: BMI 21.3
[2024-12-03 08:15] VITALS: BP 101/54; PULSE 85; RESP 20; TEMP 36.6; O2SAT 97
[2024-12-03 08:48] VITALS: BP 101/54; PULSE 85
[2024-12-03] MEDS: Sodium Chloride Tab 1 GM TABLET 0.5 GM PO (08:50)
--- NOTE | 2024-12-03 11:31 | P.PNPSI_ITS ---
Subjective Subjective Date of Service: 12/03/24 Reason For Visit: Roz Interim History: Chart reviewed, cased discussed in team today Pt was sitting next to the phone. Stated I'm not joking around today.....I'm full of shit! She reports that she hasn't had a bm x4 days, has multiple painful internal and external hemorrhoids. Told t/w to make an announcement over the speaker to get her 2 large bottles of prune juice multiple x and asked the counselor the same. She asked for more meds then said she wants less meds. She's upset that she got haldol earlier in admission, states it caused severe dry mouth. She does report feeling less dizzy today since the benztropine was d/c'd last night. T/W spoke w/ the hospitalist, who advised that the pt should hold off on tapering the NaCl for about 2 wks and I increased the dose back to 1 g bid Mental Status Exam Mental Status Exam Narrative: Appearance: casual. grooming/hygiene wnl. good eye contact Attitude: demanding Speech: Fluent, loud at times Motor activity: Calm and without any tics, tremors or dyskinesias. Mood: Not good! Affect: appropriate, irritable, constricted Thought process: perseverative, somatically preoccupied. Thought content: no SI/violent ideation reported Perception: Does not appear to respond to internal stimuli Insight: impaired Judgment: impaired Diagnostics Vital Signs (24Hr): Vital Signs - 24 hr 12/02/24 20:00 12/02/24 20:01 12/03/24 08:15 Temperature 97.2 F 97.9 F Pulse Rate 97 97 85 Respiratory Rate 20 20 Blood Pressure 148/82 H 148/82 H 101/54 L Pulse Oximetry 95 97 Oxygen Delivery Method Room Air Room Air 12/03/24 08:48 Temperature Pulse Rate 85 Respiratory Rate Blood Pressure 101/54 L Pulse Oximetry Oxygen Delivery Method BMI result Body Mass Index 21.3 Labs 11/27/24 09:31 12/02/24 10:38 Labs: Laboratory Results - last 48 hr 12/01/24 12/02/24 18:15 10:38 Sodium 137 Potassium 4.0 Chloride 102 Carbon Dioxide 25 Anion Gap 14 Urine Color Yellow Urine Appearance Clear Urine pH 7.5 Ur Specific [place] <= 1.005 Urine Protein Negative Urine Glucose (UA) Negative Urine Ketones Negative Urine Blood Negative Urine Nitrite Negative Ur Leukocyte Esterase Trace H Urine RBC 0-2 Urine WBC 6-10 H Ur Squamous Epith Cells 0-2 Urine Bacteria None Seen Hyaline Casts 0-2 Medications Medications Current Medications Acetaminophen (Acetaminophen 325 Mg Tablet) 650 mg PO Q6H PRN PRN Reason: Pain, Mild (Pain Scale 1-3) Al Hydroxide/Mg Hydroxide (Magnesium Hydrox/Alum Hydrox 30 Ml Oral.Susp) 30 ml PO Q6H PRN PRN Reason: Heartburn/Nausea Atorvastatin Calcium (Atorvastatin Calcium 40 Mg Tablet) 40 mg PO DAILY [facility] Last Admin: 12/03/24 08:50 Dose: 40 mg Carvedilol (Carvedilol 6.25 Mg Tablet) 18.75 mg PO BID [facility]; Protocol Last Admin: 12/03/24 08:48 Dose: 18.75 mg Clonidine HCl (Clonidine Hcl 0.1 Mg Tablet) 0.1 mg PO BID PRN; Protocol PRN Reason: Anxiety Last Admin: 11/30/24 16:00 Dose: 0.1 mg Docusate Sodium (Docusate Sodium 100 Mg Capsule) 100 mg PO BID [facility] Last Admin: 12/03/24 08:49 Dose: 100 mg Haloperidol (Haloperidol 5 Mg Tablet) 5 mg PO ONCE PRN PRN Reason: moderate to severe agitation Last Admin: 11/28/24 18:47 Dose: 5 mg Haloperidol (Haloperidol 5 Mg Tablet) 5 mg PO BID PRN PRN Reason: Psychosis Last Admin: 11/29/24 16:06 Dose: 5 mg Lamotrigine (Lamotrigine 25 Mg Tablet) 50 mg PO DAILY [facility] Last Admin: 12/03/24 08:50 Dose: 50 mg Lorazepam (Lorazepam 0.5 Mg Tablet) 0.5 mg PO BID PRN PRN Reason: anxiety Magnesium Hydroxide (Milk Of Magnesia 30 Ml Oral.Susp) 30 ml PO DAILY PRN PRN Reason: Constipation Last Admin: 11/28/24 13:50 Dose: 30 ml Melatonin (Melatonin 3 Mg Tablet) 9 mg PO BEDTIME [facility] Last Admin: 12/02/24 20:00 Dose: 9 mg Multivitamins/Vitamin C (Multivitamin Tablet) 1 tab PO DAILY [facility] Last Admin: 12/03/24 08:49 Dose: 1 tab Sodium Chloride (Sodium Chloride Tab 1 Gm Tablet) 1 gm PO BID [facility] Thiamine HCl (Thiamine Hcl 100 Mg Tablet) 100 mg PO DAILY [facility] Last Admin: 12/03/24 08:49 Dose: 100 mg Zolpidem Tartrate (Zolpidem Tartrate 5 Mg Tablet) 5 mg PO BEDTIME PRN PRN Reason: Insomnia Allergies Allergies Allergy/AdvReac Type Severity Reaction Status Date / Time olanzapine AdvReac Severe visual Verified 11/25/24 06:23 changes carbamazepine (From Tegretol) AdvReac Intermediate Hyponatremi Verified 11/25/24 06:23 a divalproex sodium (From AdvReac Mild hyperammone Verified 11/25/24 06:23 Depakote) yoan gabapentin AdvReac Mild Unknown Verified 11/25/24 06:23 trazodone AdvReac Mild groggy Verified 11/25/24 06:23 Assessment & Plan Assessment & Plan (1) Bipolar I, recurrent manic episode, severe with psychotic behavior: Status: Acute Code(s): F31.2 - Bipolar disorder, current episode manic severe with psychotic features (2) Hyponatremia: Status: Acute Code(s): E87.1 - Hypo-osmolality and hyponatremia (3) PTSD (post-traumatic stress disorder): Status: Acute Code(s): F43.10 - Post-traumatic stress disorder, unspecified Plan Ms. Pinto is a 64 yo F with h/o bipolar d/o, PTSD, chronic hyponatremia & PNES who was brought to the [facility] ED by ambulance after her brother called 911 due to her erratic behavior, poor oral intake and med nonadherence. She was medically admitted from 11/25-11/26 and transferred to [facility] on 11/26/24 on a section 12B. Pt presents today w/ sx of roz, disorganized thought process/behavior, hoarse speech and self dialoguing. She is hyponatremic, which could contribute to her current presentation, in addition to being off of her psych meds. Plan: Admitted to for safety and stabilization Legal status- 12B expires , 12/01. Will likely need to pursue section 7/8. Bui warning given 5 min safety checks due to disorganized/agitated behavior Admission medical consultation done by hospitalist. Labs, VS and EKG reviewed. Nephrology was consulted for mgmt of hyponatremia. Hyponatremia-- start fluid restriction - 1200 ml/day. Tapered lamotrigine from 100 mg to 50 mg qd since it can cause/contribute to . hyponatremia. Will start the following meds based med regimen rx'd at most recent admission here- haldol 5 mg qhs. Ordered EKG to check QTc tomorrow am lorazepam 1 mg bid standing dose + 1 mg bid prn for agitation/anxiety zolpidem 5 mg qhs prn for insomnia melatonin 9 mg qhs 11/28/24: Patient slept for 5 hours, reported that she does not feel good, perseverative on constipation. She is visible, restless, labile. Denies hallucinations and denies other safety concerns. Sodium is low -125-126, review with patient regarding the results which could affect her mental status.Poor meal and fluid intake. Remain on Fluid restriction. Hospitalist is aware, ordered the sodium chloride 1 g twice a day and repeat labs work tomorrow. Some abnormal EKG results. QTc WNL. Discontinue trazodone.- allergic. 11/29/24: Medication compliant, no side effects. Less labile compared to yesterday. Can be psychotic. Last BM last night. Patient was yelling out loud [employer]- her insurance. Report mood is tired and think she is homeless d/t insurance issues and someone stole money out of my bank . Report to this provider that she fell in the bathroom this morning hitting her back. Denies pain. Do not remember exactly when she fell. Per nursing, patient looks for her son at the chair who was not there and hearing someone calling her and was exit seeking yesterday. Continue to monitor for mental status change, Sodium 130 and BUN 7 this morning. Remain on fluid restriction. Haldol 5mg BID PRN for psychosis. 11/30/24: Mental status has significantly improved, coinciding w/ normalization of sodium this am. Will lower haldol to 2.5 mg tonigiht, given c/o dizziness and orthostatic hypotension this am. Continue fluid restriction and salt tablets for now. Continue daily sodium monitoring. Continue 5 min safety checks due to fall risk. Advised pt to avoid walking if she is feeling unsteady and ask staff for assistance. -Will reach out to pt's outpatient psychiatric provider tomorrow 12/01: Mental status has improved overall. Na++ wnl x 2 days. Per my discussion w/ hospitalist, will try lowering the dose of the Na tablet, continue fluid restrictions for now. Will d/c haldol per pt request, given that her presentation on admission was most likely related to hyponatremia. *Still need to contact pt's outpatient psychiatric provider for care coordination. 12.02: Mental status continues to improve. Ordered sodium for today- will taper NaCl if wnl. Continues to endorse dizziness but seems to be improving overall. She's been ctd on benztropine .5 mg, which is a home medication but she's not on an AP and doesn't have EPS. Will d/c the benztropine since it could be contributing to the dizziness. Left message with pt's outpatient psychiatric provider, Yesika Camacho NP, at [facility] for at [phone] for care coordination. Faxed release 12/03: Pt has been more agitated today, with multiple somatic complaints. Dizziness has improved after d/c'ing benztropine. Inc'd NaCl back to 1 g bid per recs from the hospitalist and will check Na level tomorrow am. Patient educated on: medication risk/benefits and medical condition Reason for continued inpatient stay Substantial Risk for: med/psych decompensation Time Spent With Patient Time: Total time managing care of this patient today _30___ minutes.
[2024-12-03] MEDS: Milk of Magnesia 30 ML ORAL.SUSP PO (13:20)
[2024-12-03 20:45] VITALS: BP 166/88; PULSE 100; RESP 20; TEMP 37.1; O2SAT 95
[2024-12-03 20:49] VITALS: BP 166/88; PULSE 100
[2024-12-03] MEDS: Sodium Chloride Tab 1 GM TABLET PO (20:49)
[2024-12-04 07:36] VITALS: BP 120/68; PULSE 79; RESP 16; TEMP 36.9; O2SAT 96
[2024-12-04] MEDS: Sodium Chloride Tab 1 GM TABLET PO ×2 (08:34→22:03)
--- NOTE | 2024-12-04 08:59 | PC.NURSE ---
Flu vaccine offered and refused
--- NOTE | 2024-12-04 10:39 | P.PNPSI_ITS ---
Subjective Subjective Date of Service: 12/04/24 Reason For Visit: Rj Interim History: Chart reviewed, case discussed w/ team Pt is very disorganized today. Awaiting Na+ level Met w/ pt in her room, where she is sitting up in bed, laughing to herself. She states get me a menu, right now! use your magic wand! I want my salt pills, my meds, caviar, cigarettes, beer and vodka! while laughing. T/W asked if she had labs drawn and looked for a bandage on her arm. She showed me her hospital bracelet and said I'm Caryn. You should know that by now! . She denies any physical concerns today. She reports that she had a bm yesterday and blasted everywhere while laughing. Review of Systems Acute medical concerns: Yes AMS- suspect sodium is low again today Diagnostics Vital Signs (24Hr): Vital Signs - 24 hr 12/03/24 20:45 12/03/24 20:49 12/04/24 07:36 Temperature 98.7 F 98.4 F Pulse Rate 100 100 79 Respiratory Rate 20 16 Blood Pressure 166/88 H 166/88 H 120/68 Pulse Oximetry 95 96 Oxygen Delivery Method Room Air Room Air BMI result Body Mass Index 21.3 Labs 11/27/24 09:31 12/02/24 10:38 Labs: Laboratory Results - last 48 hr 12/02/24 10:38 Sodium 137 Potassium 4.0 Chloride 102 Carbon Dioxide 25 Anion Gap 14 Medications Medications Current Medications Acetaminophen (Acetaminophen 325 Mg Tablet) 650 mg PO Q6H PRN PRN Reason: Pain, Mild (Pain Scale 1-3) Al Hydroxide/Mg Hydroxide (Magnesium Hydrox/Alum Hydrox 30 Ml Oral.Susp) 30 ml PO Q6H PRN PRN Reason: Heartburn/Nausea Atorvastatin Calcium (Atorvastatin Calcium 40 Mg Tablet) 40 mg PO DAILY ADAN Last Admin: 12/04/24 08:34 Dose: 40 mg Carvedilol (Carvedilol 6.25 Mg Tablet) 18.75 mg PO BID ADAN; Protocol Last Admin: 12/04/24 08:34 Dose: 18.75 mg Clonidine HCl (Clonidine Hcl 0.1 Mg Tablet) 0.1 mg PO BID PRN; Protocol PRN Reason: Anxiety Last Admin: 11/30/24 16:00 Dose: 0.1 mg Docusate Sodium (Docusate Sodium 100 Mg Capsule) 100 mg PO BID ON LICENSE OF [facility] Last Admin: 12/04/24 08:35 Dose: 100 mg Haloperidol (Haloperidol 5 Mg Tablet) 5 mg PO ONCE PRN PRN Reason: moderate to severe agitation Last Admin: 11/28/24 18:47 Dose: 5 mg Haloperidol (Haloperidol 5 Mg Tablet) 5 mg PO BID PRN PRN Reason: Psychosis Last Admin: 11/29/24 16:06 Dose: 5 mg Lamotrigine (Lamotrigine 25 Mg Tablet) 50 mg PO DAILY ON LICENSE OF [facility] Last Admin: 12/04/24 08:34 Dose: 50 mg Lorazepam (Lorazepam 0.5 Mg Tablet) 0.5 mg PO BID PRN PRN Reason: anxiety Last Admin: 12/03/24 20:48 Dose: 0.5 mg Magnesium Hydroxide (Milk Of Magnesia 30 Ml Oral.Susp) 30 ml PO DAILY PRN PRN Reason: Constipation Last Admin: 12/03/24 13:20 Dose: 30 ml Melatonin (Melatonin 3 Mg Tablet) 9 mg PO BEDTIME ON LICENSE OF [facility] Last Admin: 12/03/24 20:51 Dose: 9 mg Multivitamins/Vitamin C (Multivitamin Tablet) 1 tab PO DAILY ON LICENSE OF [facility] Last Admin: 12/04/24 08:35 Dose: 1 tab Sodium Chloride (Sodium Chloride Tab 1 Gm Tablet) 1 gm PO BID ON LICENSE OF [facility] Last Admin: 12/04/24 08:34 Dose: 1 gm Thiamine HCl (Thiamine Hcl 100 Mg Tablet) 100 mg PO DAILY ON LICENSE OF [facility] Last Admin: 12/04/24 08:33 Dose: 100 mg Zolpidem Tartrate (Zolpidem Tartrate 5 Mg Tablet) 5 mg PO BEDTIME PRN PRN Reason: Insomnia Allergies Allergies Allergy/AdvReac Type Severity Reaction Status Date / Time olanzapine AdvReac Severe visual Verified 11/25/24 06:23 changes carbamazepine (From Tegretol) AdvReac Intermediate Hyponatremi Verified 11/25/24 06:23 a divalproex sodium (From AdvReac Mild hyperammone Verified 11/25/24 06:23 Depakote) yoan gabapentin AdvReac Mild Unknown Verified 11/25/24 06:23 trazodone AdvReac Mild groggy Verified 11/25/24 06:23 Assessment & Plan Assessment & Plan (1) Bipolar I, recurrent manic episode, severe with psychotic behavior: Status: Acute Code(s): F31.2 - Bipolar disorder, current episode manic severe with psychotic features (2) Hyponatremia: Status: Resolved Code(s): E87.1 - Hypo-osmolality and hyponatremia (3) PTSD (post-traumatic stress disorder): Status: Inactive Code(s): F43.10 - Post-traumatic stress disorder, unspecified Plan Ms. Pinto is a 64 yo F with h/o bipolar d/o, PTSD, chronic hyponatremia & PNES who was brought to the [facility] by ambulance after her brother called 911 due to her erratic behavior, poor oral intake and med nonadherence. She was medically admitted from 11/25-11/26 and transferred to [facility] on 11/26/24 on a section 12B. Pt presents today w/ sx of rj, disorganized thought process/behavior, hoarse speech and self dialoguing. She is hyponatremic, which could contribute to her current presentation, in addition to being off of her psych meds. Plan: Admitted to for safety and stabilization Legal status- 12B expires , 12/01. Will likely need to pursue section 7/8. Bui warning given 5 min safety checks due to disorganized/agitated behavior Admission medical consultation done by hospitalist. Labs, VS and EKG reviewed. Nephrology was consulted for mgmt of hyponatremia. Hyponatremia-- start fluid restriction - 1200 ml/day. Tapered lamotrigine from 100 mg to 50 mg qd since it can cause/contribute to . hyponatremia. Will start the following meds based med regimen rx'd at most recent admission here- haldol 5 mg qhs. Ordered EKG to check QTc tomorrow am lorazepam 1 mg bid standing dose + 1 mg bid prn for agitation/anxiety zolpidem 5 mg qhs prn for insomnia melatonin 9 mg qhs 11/28/24: Patient slept for 5 hours, reported that she does not feel good, perseverative on constipation. She is visible, restless, labile. Denies hallucinations and denies other safety concerns. Sodium is low -125-126, review with patient regarding the results which could affect her mental status.Poor meal and fluid intake. Remain on Fluid restriction. Hospitalist is aware, ordered the sodium chloride 1 g twice a day and repeat labs work tomorrow. Some abnormal EKG results. QTc WNL. Discontinue trazodone.- allergic. 11/29/24: Medication compliant, no side effects. Less labile compared to yesterday. Can be psychotic. Last BM last night. Patient was yelling out loud [employer]- her insurance. Report mood is tired and think she is homeless d/t insurance issues and someone stole money out of my bank . Report to this provider that she fell in the bathroom this morning hitting her back. Denies pain. Do not remember exactly when she fell. Per nursing, patient looks for her son at the chair who was not there and hearing someone calling her and was exit seeking yesterday. Continue to monitor for mental status change, Sodium 130 and BUN 7 this morning. Remain on fluid restriction. Haldol 5mg BID PRN for psychosis. 11/30/24: Mental status has significantly improved, coinciding w/ normalization of sodium this am. Will lower haldol to 2.5 mg tonigiht, given c/o dizziness and orthostatic hypotension this am. Continue fluid restriction and salt tablets for now. Continue daily sodium monitoring. Continue 5 min safety checks due to fall risk. Advised pt to avoid walking if she is feeling unsteady and ask staff for assistance. -Will reach out to pt's outpatient psychiatric provider tomorrow 12/01: Mental status has improved overall. Na++ wnl x 2 days. Per my discussion w/ hospitalist, will try lowering the dose of the Na tablet, continue fluid restrictions for now. Will d/c haldol per pt request, given that her presentation on admission was most likely related to hyponatremia. *Still need to contact pt's outpatient psychiatric provider for care coordination. 12.02: Mental status continues to improve. Ordered sodium for today- will taper NaCl if wnl. Continues to endorse dizziness but seems to be improving overall. She's been ctd on benztropine .5 mg, which is a home medication but she's not on an AP and doesn't have EPS. Will d/c the benztropine since it could be contributing to the dizziness. Left message with pt's outpatient psychiatric provider, Yesika Camacho NP, at [facility] for at [phone] for care coordination. Faxed release 12/03: Pt has been more agitated today, with multiple somatic complaints. Dizziness has improved after d/c'ing benztropine. Inc'd NaCl back to 1 g bid per recs from the hospitalist and will check Na level tomorrow am. 12/04: Pt is disorganized. Speech isn't currently garbled/soft like it was on admission (when her Na+ was low). She has refused any new psych meds but will order olanzapine, which she took in the past w/ some benefit per my review of her chart. Per my discussion w/ her outpatient psychiatrist, she has not taken almost any meds consistently 2/2 c/o dry mouth, dizziness, etc. Will f/u with the hospitalist for guidance on managing hyponatremia if the Na is low again today Patient educated on: medication risk/benefits and medical condition Informed Consent: does not understand and further education needed Reason for continued inpatient stay Substantial Risk for: med/psych decompensation Time Spent With Patient Time: Total time managing care of this patient today __25__ minutes.
[2024-12-04 13:30] LABS: Anion Gap 13 (12-20); Carbon Dioxide 24 mmol/L (22-29); Chloride 107 mmol/L (96-108); Potassium 5.0 mmol/L (3.3-5.1); Sodium 139 mmol/L (135-145)
[2024-12-05] VITALS (8 sets, daily range): BP systolic 112–136; BP diastolic 76–87; PULSE 97–114; RESP 16–20; TEMP 35.9–36.6; O2SAT 97
--- NOTE | 2024-12-05 02:57 | HO.PSYEVENT ---
Documented by User: Tamy Umanzor NP 12/05/24 10:16 Event Note Date of Service: 12/05/24 Psych Restraint Event Note: T/W was notified at 0251 by RN that patient was pushing staff, threatening peers. Haldol 5mg IM Stat, Valium 5mg IM and Benadryl 25mg IM Stat ordered. Nursing to monitor. Time Spent With Patient Time: Total time managing care of this patient today _10___ minutes. Documented by User: Wilbert Jimenez MD 12/06/24 21:20 Event Note Date of Service: 12/06/24
[2024-12-05] MEDS: diazePAM 10 MG/2 ML CARTRIDGE 5 MG IM ×4 (03:12→21:26)
--- NOTE | 2024-12-05 04:55 | W.MHC.F2F ---
Service Date Service Date: 12/05/24 Encounter Date of encounter: 12/05/24 (4:10 am) Encounter: RN reported that patient was agitated and growing staph. Patient was given chemical restraint. Patient denied any complaints. Exam benign. Patient was examined at 04:10am. Reasons for Services Homebound: Leaving the home is medically contraindicated at this time without the asist of a device and/or another person due th the listed conditions above and below. Certification: Based on the above findings, I certify that this patient is confined to the home and needs intermittent intermediate care, physical therapy and/or speech therapy, or continues to need occupational therapy. The patient is under my care, and I have initiated the establishment of the plan of care. The patient will be followed by a physician who will periodically review the plan of care. Time Spent With Patient Time: Total time managing care of this patient today ____ minutes.
--- NOTE | 2024-12-05 06:36 | PC.NURSE ---
t was isolating in sensory room much of shift self dialoguing. As the evening progressed pt was becoming more agitated and was offered meds for anxiety/agitation but refused them. When staff came out of nurse's station, pt grabbed at staff member but was able to be redirected. Pt became increasingly disruptive and agitated at one point walking down the wing trying to go in other pt's rooms but was able to be redirected. Pt called 911 with delusional reports. Pt was heard yelling obscenities and threats in sensory room. Moments later, pt grabbed this writers badge and was threatening peers and this magnetic tape typewriter operator. Provider notified of need for restraint and medications @0251. Pt was given a chemical restraint of Haldol 5mg, Benadryl 25mg and Valium 5mg IM @ 0312. No physical hold required as pt was complaint. Director Of Restaurant Operations Alexandr notified @ 0300. Hospitalist Socorro notified @ 0315. Hospitalist Socorro arrived on unit to examine pt @ 0410. Pt has been isolative to room and resting comfortably since restraint administered. Vital signs stable. No injuries to staff or patient. [ End ]
--- NOTE | 2024-12-05 08:05 | HO.PSYEVENT ---
Documented by User: Tamy Umanzor NP 12/05/24 10:06 Event Note Date of Service: 12/05/24 Psych Restraint Event Note: T/W was notified at 0800 by RN that pt required restraint d/t assaulting staff. Patient was placed in restraint chair. Haldol 5mg IM Stat, Valium 5mg IM Stat and Benadryl 25mg IM Stat ordered. Please see nursing note. Nursing to monitor. Time Spent With Patient Time: Total time managing care of this patient today _10___ minutes. Documented by User: Wilbert Jimenez MD 12/06/24 15:54 Event Note Date of Service: 12/06/24
--- NOTE | 2024-12-05 08:47 | HO.BHRESTREX ---
Behavioral Restraint Exam Behavioral Health Restraint Exam Type of Restraint: Medication and Mechanical (Given meds and in restrain chair) Reason for Restraint: Substantial Risk and Substantial Risk of Harm to Others Medical Concerns for Restraint: No medical concerns, pt w/o acute inj / no noted resp/VS abnormalities Comment: Further assessment by Psychiatry team.. Restrained at 0757, evluated at 0745. Patient was was Physically restained in restrained chair, constantly talking, using abuse language, no distress, able make movement in all limbs, albeit limited by restrain, CV [id number], lungs Clear... No physical injury noted.
--- NOTE | 2024-12-05 10:02 | HO.PSYEVENT ---
Documented by User: Tamy Umanzor NP 12/05/24 10:11 Event Note Date of Service: 12/05/24 Psych Restraint Event Note: Patient continues in restraint chair. Growling. Swearing. Threatening T/W and other staff. When T/W attempted to release one arm from restraint chair. Patient grabbed T/W's hand tightly and would not let go. Patient threatened T/W stating, I'm going to fucking kick your ass and break your glasses . Pt then swung at T/W. Valium 5mg IM Stat, Thorazine 25mg IM Stat ordered. Restraint ordered renewed. Nursing to monitor. Time Spent With Patient Time: Total time managing care of this patient today _20___ minutes. Documented by User: Wilbert Jimenez MD 12/06/24 21:47 Event Note Date of Service: 12/06/24
--- NOTE | 2024-12-05 10:16 | HO.BHRESTREX ---
Behavioral Restraint Exam Behavioral Health Restraint Exam Type of Restraint: Physical Hold, Medication and Mechanical Reason for Restraint: Substantial Risk and Substantial Risk of Harm to Others Medical Concerns for Restraint: No medical concerns, pt w/o acute inj / no noted resp/VS abnormalities Behavioral Assessment / Plan: Concerns / further recommendations, explain below: Comment: patient continues in restraint chair. placed on 1:1 safety checks.
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
--- NOTE | 2024-12-05 17:18 | PM.EVENT ---
Event Note Date of Service: 12/05/24 Event Note: Went to see pt for bruises from restraint, pt has finally fallen asleep after long periods of agitations andmultiple restraints today, and staff would prefer her getting rest and reassess later. Time Spent With Patient Time: Total time managing care of this patient today ____ minutes.
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
[2024-12-06 08:00] VITALS: RESP 14
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
--- NOTE | 2024-12-06 14:15 | PC.NURSE ---
Patient scratched 1:1's arm while attempting to come out of room naked.
--- NOTE | 2024-12-07 | ECG_ITS ---
Test Reason : QT CHECK Blood Pressure : */* mmHG Vent. Rate : 121 BPM Atrial Rate : 121 BPM P-R Int : 134 ms QRS Dur : 104 ms QT Int : 328 ms P-R-T Axes : 62 0 112 degrees QTcB Int : 465 ms Sinus tachycardia Minimal voltage criteria for LVH, may be normal variant ( [place] product ) Anterior infarct (cited on or before 25-Nov-2024) T wave abnormality, consider lateral ischemia Abnormal ECG When compared with ECG of 30-Nov-2024 14:52, Serial changes of Anterior infarct Present Referred By: Sarah Rg Electronically Signed By: ROSARIO HIDALGO
[2024-12-07 08:00] VITALS: BP 131/99; PULSE 69; RESP 20; TEMP 36.7; O2SAT 99
--- NOTE | 2024-12-07 09:30 | HO.PSYCHPN ---
Subjective Subjective Date of Service: 12/07/24 Reason For Visit: Rj Interim History: Chart reviewed, case discussed with tx team Per nursing notes- pt was up all night Pt was placed on 1:1 over the weekend for safety due to disorganized behavior--stripped clothing, ran down the wing naked, urinated in her bed, barked/growled at staff, intrusive. Refused labs, meds, vitals over the weekend. Received multiple IMs---haldol, benadryl, valium, thorazine and phys restraint in restraint chair. Per my discussion w/ the psychiatric provider who worked w/ pt over the weekend, pt's hands are bruised since she fought to get out of the restraints. Tried to strike covering psychiatric provider. Finally responded to thorazine (over the weekend). T/W met w/ pt around 9 am in the hallway. Her eyes were closed for the majority of the conversation. She agreed to get her blood drawn. She asked for permission to open her eyes at the end of the interview and then opened her eyes. She appeared very confused and was tremulous when the phlebotomists came to draw her labs and shook her head 'no' when staff asked if she would allow the blood draw. T/W ordered a physical hold for the blood draw, given the risks associated with potential hyponatremia and concerns for other underlying medical issues that could account for pt's altered mental status. Pt's upper extremities were rigid and it was unclear if this was volitional. T/W requested a medical consult after reviewing the labs, including CK of 929, creatinine of 1.89 and mildly elevated K+ and Na++. She was seen by Dr. Bustos. See summary in A/P below. Review of Systems Acute medical concerns: Yes see above Mental Status Exam Mental Status Exam Narrative: Appearance: sitting in a chair in the hallway with eyes closed initially. During physical hold, she stared intensely at each staff member with a grimaced smile Attitude: minimally cooperative Speech: paucity of speech but generally fluent Motor activity: tremulous, with BL arm rigidity during blood draw. more relaxed later in the day Mood: did not say Affect: anxious, confused Thought process: disorganized Thought content: did not endorse SI/violent ideation Perception: unable to assess. Insight: impaired Judgment: impaired Diagnostics Vital Signs (24Hr): BMI result Body Mass Index 21.3 Labs 12/07/24 10:18 12/07/24 10:18 EKG EKG: reviewed EKG Comment: Ordering Physician: Sarah Rg MD Date of Service: 12/07/24 Procedure(s): ECG 12 lead EKG Accession Number(s): [id number] cc: ~ Reason for Exam: QTc monitoring Test Reason : QT CHECK Blood Pressure : */* mmHG Vent. Rate : 121 BPM Atrial Rate : 121 BPM P-R Int : 134 ms QRS Dur : 104 ms QT Int : 328 ms P-R-T Axes : 62 0 112 degrees QTcB Int : 465 ms Sinus tachycardia Minimal voltage criteria for LVH, may be normal variant ( David product ) Anterior infarct (cited on or before 25-Nov-2024) T wave abnormality, consider lateral ischemia Abnormal ECG When compared with ECG of 30-Nov-2024 14:52, Serial changes of Anterior infarct Present Medications Medications Current Medications Acetaminophen (Acetaminophen 325 Mg Tablet) 650 mg PO Q6H PRN PRN Reason: Pain, Mild (Pain Scale 1-3) Al Hydroxide/Mg Hydroxide (Magnesium Hydrox/Alum Hydrox 30 Ml Oral.Susp) 30 ml PO Q6H PRN PRN Reason: Heartburn/Nausea Atorvastatin Calcium (Atorvastatin Calcium 40 Mg Tablet) 40 mg PO DAILY [facility] Last Admin: 12/06/24 10:45 Dose: Not Given Carvedilol (Carvedilol 6.25 Mg Tablet) 18.75 mg PO BID [facility]; Protocol Last Admin: 12/06/24 20:52 Dose: Not Given Clonidine HCl (Clonidine Hcl 0.1 Mg Tablet) 0.1 mg PO BID PRN; Protocol PRN Reason: Anxiety Last Admin: 11/30/24 16:00 Dose: 0.1 mg Docusate Sodium (Docusate Sodium 100 Mg Capsule) 100 mg PO BID [facility] Last Admin: 12/06/24 20:52 Dose: Not Given Haloperidol (Haloperidol 5 Mg Tablet) 5 mg PO ONCE PRN PRN Reason: moderate to severe agitation Last Admin: 12/04/24 22:03 Dose: 5 mg Haloperidol (Haloperidol 5 Mg Tablet) 5 mg PO BID PRN PRN Reason: Psychosis Last Admin: 11/29/24 16:06 Dose: 5 mg Lamotrigine (Lamotrigine 25 Mg Tablet) 50 mg PO DAILY [facility] Last Admin: 12/06/24 10:46 Dose: Not Given Lorazepam (Lorazepam 0.5 Mg Tablet) 0.5 mg PO BID PRN PRN Reason: anxiety Last Admin: 12/04/24 22:02 Dose: 0.5 mg Magnesium Hydroxide (Milk Of Magnesia 30 Ml Oral.Susp) 30 ml PO DAILY PRN PRN Reason: Constipation Last Admin: 12/03/24 13:20 Dose: 30 ml Melatonin (Melatonin 3 Mg Tablet) 9 mg PO BEDTIME [facility] Last Admin: 12/06/24 20:52 Dose: Not Given Multivitamins/Vitamin C (Multivitamin Tablet) 1 tab PO DAILY [facility] Last Admin: 12/06/24 10:46 Dose: Not Given Olanzapine (Olanzapine 2.5 Mg Tablet) 2.5 mg PO BID [facility] Last Admin: 12/06/24 20:52 Dose: Not Given Sodium Chloride (Sodium Chloride Tab 1 Gm Tablet) 1 gm PO BID [facility] Last Admin: 12/06/24 20:52 Dose: Not Given Thiamine HCl (Thiamine Hcl 100 Mg Tablet) 100 mg PO DAILY [facility] Last Admin: 12/06/24 10:46 Dose: Not Given Zolpidem Tartrate (Zolpidem Tartrate 5 Mg Tablet) 5 mg PO BEDTIME PRN PRN Reason: Insomnia Allergies Allergies Allergy/AdvReac Type Severity Reaction Status Date / Time olanzapine AdvReac Severe visual Verified 11/25/24 06:23 changes carbamazepine (From Tegretol) AdvReac Intermediate Hyponatremi Verified 11/25/24 06:23 a divalproex sodium (From AdvReac Mild hyperammone Verified 11/25/24 06:23 Depakote) yoan gabapentin AdvReac Mild Unknown Verified 11/25/24 06:23 trazodone AdvReac Mild groggy Verified 11/25/24 06:23 Assessment & Plan Assessment & Plan (1) Bipolar I, recurrent manic episode, severe with psychotic behavior: Status: Acute Code(s): F31.2 - Bipolar disorder, current episode manic severe with psychotic features (2) Hyponatremia: Status: Resolved Code(s): E87.1 - Hypo-osmolality and hyponatremia (3) PTSD (post-traumatic stress disorder): Status: Inactive Code(s): F43.10 - Post-traumatic stress disorder, unspecified Plan Ms. Pinto is a 64 yo F with h/o bipolar d/o, PTSD, chronic hyponatremia & PNES who was brought [place] [facility] [place] ambulance after her brother called 911 due to her erratic behavior, poor oral intake and med nonadherence. She was medically admitted from 11/25-11/26 and transferred to [facility] on 11/26/24 on a section 12B. Pt presents today w/ sx of rj, disorganized thought process/behavior, hoarse speech and self dialoguing. She is hyponatremic, which could contribute to her current presentation, in addition to being off of her psych meds. Plan: Admitted to for safety and stabilization Legal status- 12B expires , 12/01. Will likely need to pursue section 7/8. Bui warning given 5 min safety checks due to disorganized/agitated behavior Admission medical consultation done by hospitalist. Labs, VS and EKG reviewed. Nephrology was consulted for mgmt of hyponatremia. Hyponatremia-- start fluid restriction - 1200 ml/day. Tapered lamotrigine from 100 mg to 50 mg qd since it can cause/contribute to . hyponatremia. Will start the following meds based med regimen rx'd at most recent admission here- haldol 5 mg qhs. Ordered EKG to check QTc tomorrow am lorazepam 1 mg bid standing dose + 1 mg bid prn for agitation/anxiety zolpidem 5 mg qhs prn for insomnia melatonin 9 mg qhs 11/28/24: Patient slept for 5 hours, reported that she does not feel good, perseverative on constipation. She is visible, restless, labile. Denies hallucinations and denies other safety concerns. Sodium is low -125-126, review with patient regarding the results which could affect her mental status.Poor meal and fluid intake. Remain on Fluid restriction. Hospitalist is aware, ordered the sodium chloride 1 g twice a day and repeat labs work tomorrow. Some abnormal EKG results. QTc WNL. Discontinue trazodone.- allergic. 11/29/24: Medication compliant, no side effects. Less labile compared to yesterday. Can be psychotic. Last BM last night. Patient was yelling out loud [employer]- her insurance. Report mood is tired and think she is homeless d/t insurance issues and someone stole money out of my bank . Report to this provider that she fell in the bathroom this morning hitting her back. Denies pain. Do not remember exactly when she fell. Per nursing, patient looks for her son at the chair who was not there and hearing someone calling her and was exit seeking yesterday. Continue to monitor for mental status change, Sodium 130 and BUN 7 this morning. Remain on fluid restriction. Haldol 5mg BID PRN for psychosis. 11/30/24: Mental status has significantly improved, coinciding w/ normalization of sodium this am. Will lower haldol to 2.5 mg tonigiht, given c/o dizziness and orthostatic hypotension this am. Continue fluid restriction and salt tablets for now. Continue daily sodium monitoring. Continue 5 min safety checks due to fall risk. Advised pt to avoid walking if she is feeling unsteady and ask staff for assistance. -Will reach out to pt's outpatient psychiatric provider tomorrow 12/01: Mental status has improved overall. Na++ wnl x 2 days. Per my discussion w/ hospitalist, will try lowering the dose of the Na tablet, continue fluid restrictions for now. Will d/c haldol per pt request, given that her presentation on admission was most likely related to hyponatremia. *Still need to contact pt's outpatient psychiatric provider for care coordination. 12.02: Mental status continues to improve. Ordered sodium for today- will taper NaCl if wnl. Continues to endorse dizziness but seems to be improving overall. She's been ctd on benztropine .5 mg, which is a home medication but she's not on an AP and doesn't have EPS. Will d/c the benztropine since it could be contributing to the dizziness. Left message with pt's outpatient psychiatric provider, Yesika Camacho NP, at [facility] for at [phone] for care coordination. Faxed release 12/06: Continues on 1:1. Disorganized. Labile. Flight of ideas. Declined medications. Urinated in bed, would not allow nursing to help clean her. Declined to shower. Per nursing, ran down the hallway nude but went back to room. per nursing, slept 2.5 hours last night. continue tx plan. 12/07: Pt has been disorganized today. T/W ordered a physical hold to get stat labs due to concern for recurrent hyponatremia contributing to her presentation. CK was also ordered 2/2 UE rigidity, which might have been volitional during the physical hold. Medicine was consulted due to elevated CK and t/w' s concern for NMS, given that she received multiple IM APs over the weekend and physical restraints. T/W discussed the case w/ Dr. Bustos, who examined her. Input much appreciated. Impression/Recs from Dr. Bustos- Dehydration Impression that the patient is significantly dehydrated. She has chapped lips, and dry skin turgor. Encourage p.o. intake of fluids Hypernatremia Hypovolemic Hypoosmolar hyponatremia The patient had hypovolemic hypoosmolar hyponatremia on initial evaluation, as demonstrated by low serum osmolality, low urine sodium and low serum sodium. This is likely in the setting of poor nutritional intake. She improved after administration of sodium tablets, which replenished her sodium reserve. Her clinical picture is inconsistent with SIADH. RECOMMENDATIONS - encourage p.o. intake of fluids - monitor urinary output - recheck blood work tomorrow Prerenal acute kidney injury Similarly to above, likely prerenal acute kidney injury. Multifactorial etiology, 2/2 dehydration and poor volume status as well as likely secondary from elevated CK/ rhabdomyolysis. Patient's rhabdomyolysis is potentially 2/2 traumatic etiology; from recent chemical and physical restraints. Patient has significant bruising around the right upper extremity. RECOMMENDATIONS - encourage p.o. intake of fluids - monitor urinary output - recheck blood work tomorrow Traumatic Rhabdomyolysis Patient's rhabdomyolysis is potentially 2/2 traumatic etiology; from recent chemical and physical restraints. Patient has significant bruising around the right upper extremity. I am less inclined to believe patient's rhabdomyolysis is 2/2 neuroleptic malignant syndrome. Patient's mental status is similar to it has been for the past few days; no deterioration or change. She has persistent agitation and aggression. Her tremulousness that has been observed relieves when the patient is more relaxed or calm. With recommend close monitoring of the patient's vital signs. Encourage p.o. intake of medications as able to over IM or IV medications. Reason for continued inpatient stay Substantial Risk for: med/psych decompensation Time Spent With Patient Time: Total time managing care of this patient today _60___ minutes.
[2024-12-07 10:25] LABS: MANUAL DIFF FLAG NO
[2024-12-07 10:26] LABS: Hematocrit 42.1 % (37.0-47.0); Hemoglobin 13.9 g/dl (12.0-16.0); Imm Gran Abs Auto 0.07 X10*3/uL (0.00-0.03); Imm Gran Pct Auto 0.5 % (0.0-0.4); Lymphocytes Absolute Auto 1.2 X10*3/uL (1.2-4.9); Mean Corpuscular HGB Conc 33.0 g/dl (31.0-35.0); Mean Corpuscular Hemoglobin 30.2 pg (27.0-33.0); Mean Corpuscular Volume 91.3 fL (80.0-98.0); NRBC Abs Auto 0.000 X10*3/uL (0.0-0.012); NRBC Pct Auto 0.0 /100WBC (0.0-0.2); Platelet Count 410 X10*3/uL (160-400); Red Blood Count 4.61 X10*6/uL (4.20-5.50); White Blood Count 14.1 X10*3/uL (4.8-10.8)
[2024-12-07 10:33] LABS: Ammonia 34 umol/L (13-55)
[2024-12-07 10:37] LABS: Anion Gap 24 (12-20); Carbon Dioxide 20 mmol/L (22-29); Chloride 107 mmol/L (96-108); Potassium 5.1 mmol/L (3.3-5.1); Sodium 146 mmol/L (135-145)
[2024-12-07 10:41] LABS: Alanine Aminotransferase 52 U/L (0-31); Albumin Level 5.0 g/dL (3.5-5.0); Alkaline Phosphatase 65 U/L (39-117); Anion Gap 23 (12-20); Aspartate Amino Transferase 62 U/L (5-31); Blood Urea Nitrogen 41 mg/dL (9-16); Calcium 10.0 mg/dL (8.4-10.2); Carbon Dioxide 21 mmol/L (22-29); Chloride 107 mmol/L (96-108); Creatinine Clr Calc Pharmacy 25.2; Estimated Glomerular Filt Rate 27; Potassium 5.2 mmol/L (3.3-5.1); Sodium 146 mmol/L (135-145); Total Protein 8.2 g/dL (6.5-8.0)
--- NOTE | 2024-12-07 11:30 | HO.EVEPSY_ITS ---
Event Note Date of Service: 12/07/24 Psych Restraint Event Note: Pt has been very confused, tremulous, pale, refused meds, not eating/drinking. She refused labs to check sodium over the weekend. She initially agreed to get a blood draw today but shook her head 'no' and would not cooperate w/ straightening her arm for the blood draw when the phlebotomists arrived. T/W, nursing staff and MHCs provided support and encouraged her to cooperate with the blood draw to check her sodium level due h/o hyponatremia and risks a/w severe hyponatremia but she continued to shake her head no and withdrew when the office services coordinator attempted to assess her veins. T/W ordered a physical hold to draw pt's labs due to the potentially life threatening risk of hyponatremia and concern for NMS, given upper extremity rigidity after receiving multiple IMs over the weekend. T/W assessed pt after the physical hold and she was calm, in no respiratory or physical distress. Vital signs were monitored. Time Spent With Patient Time: Total time managing care of this patient today _30___ minutes.
--- NOTE | 2024-12-07 11:30 | HO.BHRESTREX ---
Behavioral Restraint Exam Behavioral Health Restraint Exam Type of Restraint: Physical Hold Reason for Restraint: Substantial Risk Medical Concerns for Restraint: No medical concerns, pt w/o acute inj / no noted resp/VS abnormalities Behavioral Assessment / Plan: No further behavioral concerns, continue current plan.
--- NOTE | 2024-12-07 11:43 | PC.NURSE ---
[id number] Dr Rg ordered medically necessary labs and pt declined to cooperatve physically with this process. Pt was held in physical hold for lab work only and released after labs were complete.
--- NOTE | 2024-12-07 12:18 | P.CONHOSP_ITS ---
History of Present Illness Data of Consult Service Date: 12/07/24 Requesting physician: Sarah Rg Primary Care Provider: Unknown Physician HPI Reason for consult: Tremulousness, elevated CK, hypernatremia Background medical history and admission reviewed. Extensive number events occurring since the 30 of November. Consult request for increased agitation, tremulousness, lab abnormalities, with elevated CK. Patient had multiple intramuscular injections as chemical restraints 2/2 agitation, abusive behavior and patient presenting a safety to herself and others. Furthermore, the patient has been noncompliant with p.o. intake of fluids and food. No fevers rigors or chills. Tremulousness was noted, however this resolved when the patient was calmer. Overall, the patient remained agitated throughout visit, making threatening statements, agitated and had aggressive physical posturing. Review of Systems 2 Review of Systems: Yes Unobtainable due to mental condition and Unobtainable due to mental status PMFSH Medical History Labile hypertension Leiomyoma PTSD (post-traumatic stress disorder) Bipolar I disorder Tinea unguium History of psychogenic nonepileptic seizure Impaired fasting glucose Dyslipidemia (high LDL; low HDL) Hx of suicide attempt On beta baldemar at home Arthritis Anxiety Diastasis recti Umbilical hernia Compression fracture of L1 lumbar vertebra Dupuytren's contracture of left hand Lumbar disc herniation Essential hypertension Ventral hernia Urinary incontinence Family History Father Diabetes mellitus Mother COPD (chronic obstructive pulmonary disease) Sister Diabetes mellitus Glaucoma Other Mental health disorder Substance use disorder Surgical History H/O shoulder surgery Hx of elbow surgery Hx of repair of left rotator cuff Hx of colonoscopy History of lumbar fusion Social History Household Members: None Household Members Other:: brother Housing: Homeless Are you a primary medicare sales executive to a significant other at home: No Do you presently have visiting nurse or other home services: No Alcohol intake: current Alcohol intake frequency: holidays/special occasions only Patient Tobacco Use Status: Former Tobacco user Tobacco use type: Cigarette Cigarette Packs Per Day: 1 Cigarettes Per Day: 20.0 e-Cigarette/Vaping Use: Never Used Second Hand Smoke Exposure: No Substance Use Type: Marijuana Currently Displaying Signs/Symptoms of Drug Intoxication Withdrawal: No Have you been hit, kicked, punched, or otherwise hurt by someone within the past year? If so, by whom?: No Do you feel safe in your current relationship?: No Current Relationship Is there a partner from a previous relationship who is making you feel unsafe now?: No Are you made to feel afraid or neglected: No Advance Directives: Yes Advance Directives on File: Yes Advance Directives Date on File: 11/26/22 Do you have thoughts of harming others: None Do you have a plan to hurt others: No Plan Recently lost weight without trying: Yes How much weight loss: 14-23 pounds Eating poorly because of decreased appetite: No Nutrition screen score: 4 Nutrition Risks: No Nutritional Risk Patient : No : No Poor oral hygiene: No service: No Current occupational status: disabled Sexual orientation: Straight/Heterosexual Cognitive needs: No Hearing needs: No Vision needs: No Meds Allergies Allergy/AdvReac Type Severity Reaction Status Date / Time olanzapine AdvReac Severe visual Verified 11/25/24 06:23 changes carbamazepine (From Tegretol) AdvReac Intermediate Hyponatremi Verified 11/25/24 06:23 a divalproex sodium (From AdvReac Mild hyperammone Verified 11/25/24 06:23 Depakote) yoan gabapentin AdvReac Mild Unknown Verified 11/25/24 06:23 trazodone AdvReac Mild groggy Verified 11/25/24 06:23 Active Medications: Current Medications Acetaminophen (Acetaminophen 325 Mg Tablet) 650 mg PO Q6H PRN PRN Reason: Pain, Mild (Pain Scale 1-3) Al Hydroxide/Mg Hydroxide (Magnesium Hydrox/Alum Hydrox 30 Ml Oral.Susp) 30 ml PO Q6H PRN PRN Reason: Heartburn/Nausea Atorvastatin Calcium (Atorvastatin Calcium 40 Mg Tablet) 40 mg PO DAILY [facility] Last Admin: 12/07/24 09:49 Dose: Not Given Carvedilol (Carvedilol 6.25 Mg Tablet) 18.75 mg PO BID ADAN; Protocol Last Admin: 12/07/24 09:49 Dose: Not Given Clonidine HCl (Clonidine Hcl 0.1 Mg Tablet) 0.1 mg PO BID PRN; Protocol PRN Reason: Anxiety Last Admin: 11/30/24 16:00 Dose: 0.1 mg Docusate Sodium (Docusate Sodium 100 Mg Capsule) 100 mg PO BID [facility] Last Admin: 12/07/24 09:49 Dose: Not Given Haloperidol (Haloperidol 5 Mg Tablet) 5 mg PO ONCE PRN PRN Reason: moderate to severe agitation Last Admin: 12/04/24 22:03 Dose: 5 mg Haloperidol (Haloperidol 5 Mg Tablet) 5 mg PO BID PRN PRN Reason: Psychosis Last Admin: 11/29/24 16:06 Dose: 5 mg Lamotrigine (Lamotrigine 25 Mg Tablet) 50 mg PO DAILY [facility] Last Admin: 12/07/24 09:49 Dose: Not Given Lorazepam (Lorazepam 0.5 Mg Tablet) 0.5 mg PO BID PRN PRN Reason: anxiety Last Admin: 12/04/24 22:02 Dose: 0.5 mg Magnesium Hydroxide (Milk Of Magnesia 30 Ml Oral.Susp) 30 ml PO DAILY PRN PRN Reason: Constipation Last Admin: 12/03/24 13:20 Dose: 30 ml Melatonin (Melatonin 3 Mg Tablet) 9 mg PO BEDTIME [facility] Last Admin: 12/06/24 20:52 Dose: Not Given Multivitamins/Vitamin C (Multivitamin Tablet) 1 tab PO DAILY [facility] Last Admin: 12/07/24 09:49 Dose: Not Given Olanzapine (Olanzapine 2.5 Mg Tablet) 2.5 mg PO BID [facility] Last Admin: 12/07/24 09:50 Dose: Not Given Sodium Chloride (Sodium Chloride Tab 1 Gm Tablet) 1 gm PO BID [facility] Last Admin: 12/07/24 09:50 Dose: Not Given Thiamine HCl (Thiamine Hcl 100 Mg Tablet) 100 mg PO DAILY [facility] Last Admin: 12/07/24 09:50 Dose: Not Given Zolpidem Tartrate (Zolpidem Tartrate 5 Mg Tablet) 5 mg PO BEDTIME PRN PRN Reason: Insomnia Home Medications ?Medication ?Instructions ?Recorded ?Confirmed ?Last Taken ?Type melatonin 3 mg tablet 10 mg PO BEDTIME 03/07/2311/25/24 20:13 History benztropine 0.5 mg tablet 0.5 mg PO BEDTIME 10/23/23 1 11/25/24 20:16 History lamotrigine 25 mg tablet (Lamictal) 100 mg PO DAILY 11/26/24 11/26/24 08:49 History atorvastatin 40 mg tablet 40 mg PO DAILY 11/25/2411/1111/26/24 08:49 History docusate sodium 100 mg capsule 100 mg PO DAILY PRN Con stipation 11/25/24 11/26/24 11/25/24 17:31 History thiamine HCl (vitamin B1) 100 mg 100 mg PO DAILY 11/2511/26/24 11/26/24 08:49 History tablet Physical Exam 2 Vital Signs and Narrative: Vital Signs: Last Vital Signs Temp 98.1 F 12/07/24 08:00 Pulse 69 12/07/24 08:00 Resp 20 12/07/24 08:00 BP 131/99 H 12/07/24 08:00 Pulse Ox 99 12/07/24 08:00 O2 Del Method Room Air 12/07/24 08:00 BMI result Body Mass Index 21.3 General: A&O to person, not to time place and situation, comfortable, no pain. Aggitated. dry and chapped lips and oral mucosa. Cardiac: S1, S2 auscultated with no S3/4, no MRG. Well perfused. Respiratory: Normal breath sounds auscultated throughout all lung zones, without wheezing, rales. Normal rate. GI/ : No abdominal pain on palpation, no masses or distentions. MSK: Normal ambulation without pain at bony prominences or musculature. Rigid musculature, however occurs when patient is flexing and resisting (with agitation and anxiety) Neurological: Normal neurological examination on overview, without obvious CN II-XII abnormalities. Skin: significant large sized ecchymosis around the right shoulder extending to the right elbow. Results Labs 12/07/24 10:18 12/07/24 10:18 Labs: Laboratory Results - last 24 hr 12/07/24 12/07/24 10:18 10:18 MCV 91.3 MCH 30.2 MCHC 33.0 RDW 13.1 Plt Count 410 H D MPV 8.9 L Immature Gran % (Auto) 0.5 H Neut % (Auto) 85.3 H Lymph % (Auto) 8.3 L [place] % (Auto) 5.7 Eos % (Auto) 0.1 Baso % (Auto) 0.1 Lymph # (Auto) 1.2 Todd # (Auto) 0.8 Eos # (Auto) 0.0 Baso # (Auto) 0.0 Abs Immat Gran (auto) 0.07 H Absolute Neuts (auto) 12.0 H Absolute Nucleated RBC 0.000 Nucleated RBC % (auto) 0.0 Anion Gap 24 H 23 H Estim Creat Clear Calc 25.2 Estimated GFR 27 Random Glucose 123 H Calcium 10.0 Total Bilirubin 0.5 AST 62 H ALT 52 H Alkaline Phosphatase 65 Ammonia 34 Total Creatine Kinase 929 H Total Protein 8.2 H Albumin 5.0 Assessment and Plan (1) Rj: Status: Acute (2) Bipolar I, recurrent manic episode, severe with psychotic behavior: Status: Acute (3) Essential hypertension: Status: Acute (4) Urinary incontinence: Qualifiers: Urinary Incontinence type: unspecified incontinence Qualified Code(s): R32 - Unspecified urinary incontinence Status: Acute (5) History of psychogenic nonepileptic seizure: Status: Chronic (6) Hypernatremia: Status: Acute (7) Hyponatremia: Status: Resolved (8) Noncompliance with medication regimen: Status: Resolved Plan 64-year-old female with a background history of bipolar disorder with rj/PTSD, hypovolemic hypoosmolar hyponatremia, psychogenic nonepileptic seizures, presenting to hospital with erratic behavior, admitted to inpatient psychiatry with failure to thrive, nonadherence and erratic behaviour. Medicine service consulted for tremulousness, abnormal bloodwork. Dehydration Impression that the patient is significantly dehydrated. She has chapped lips, and dry skin turgor. Encourage p.o. intake of fluids Hypernatremia Hypovolemic Hypoosmolar hyponatremia The patient had hypovolemic hypoosmolar hyponatremia on initial evaluation, as demonstrated by low serum osmolality, low urine sodium and low serum sodium. This is likely in the setting of poor nutritional intake. She improved after administration of sodium tablets, which replenished her sodium reserve. Her clinical picture is inconsistent with SIADH. RECOMMENDATIONS - encourage p.o. intake of fluids - monitor urinary output - recheck blood work tomorrow Prerenal acute kidney injury Similarly to above, likely prerenal acute kidney injury. Multifactorial etiology, 2/2 dehydration and poor volume status as well as likely secondary from elevated CK/ rhabdomyolysis. Patient's rhabdomyolysis is potentially 2/2 traumatic etiology; from recent chemical and physical restraints. Patient has significant bruising around the right upper extremity. RECOMMENDATIONS - encourage p.o. intake of fluids - monitor urinary output - recheck blood work tomorrow Traumatic Rhabdomyolysis Patient's rhabdomyolysis is potentially 2/2 traumatic etiology; from recent chemical and physical restraints. Patient has significant bruising around the right upper extremity. I am less inclined to believe patient's rhabdomyolysis is 2/2 neuroleptic malignant syndrome. Patient's mental status is similar to it has been for the past few days; no deterioration or change. She has persistent agitation and aggression. Her tremulousness that has been observed relieves when the patient is more relaxed or calm. With recommend close monitoring of the patient's vital signs. Encourage p.o. intake of medications as able to over IM or IV medications. Mental status changes Waddling gait In the setting of the patient's nutritional insufficiency, considerations to be held for possible thiamine or B12 deficiencies. Noting a waddling gait on evaluation, which could be wine sales representative of significant B vitamin deficiencies. Recommendations - thiamine 100 mg OD p.o. - cyanocobalamin 1000 mg OD p.o. Thank you for allowing us to continue care of this patient We will continue to follow up with you
[2024-12-07 21:08] VITALS: BP 151/81; PULSE 104; RESP 16; TEMP 36.6; O2SAT 98
[2024-12-07 22:33] LABS: Appearance Urine Turbid; Glucose Urine UA Negative (Negative); PH 5.5 (5.0-9.0); Specific Gravity - Urine 1.025 (1.005-1.025); UMIC TRIGGER UA YES
[2024-12-08 07:25] VITALS: BP 111/53; PULSE 90; RESP 16; TEMP 36.2; O2SAT 93
[2024-12-08 07:50] LABS: MANUAL DIFF FLAG NO
[2024-12-08 07:53] LABS: Hematocrit 36.1 % (37.0-47.0); Hemoglobin 12.5 g/dl (12.0-16.0); Imm Gran Abs Auto 0.06 X10*3/uL (0.00-0.03); Imm Gran Pct Auto 0.5 % (0.0-0.4); Lymphocytes Absolute Auto 1.3 X10*3/uL (1.2-4.9); Mean Corpuscular HGB Conc 34.6 g/dl (31.0-35.0); Mean Corpuscular Hemoglobin 30.9 pg (27.0-33.0); Mean Corpuscular Volume 89.4 fL (80.0-98.0); NRBC Abs Auto 0.000 X10*3/uL (0.0-0.012); NRBC Pct Auto 0.0 /100WBC (0.0-0.2); Platelet Count 332 X10*3/uL (160-400); Red Blood Count 4.04 X10*6/uL (4.20-5.50); White Blood Count 13.2 X10*3/uL (4.8-10.8)
[2024-12-08 08:18] LABS: Alanine Aminotransferase 41 U/L (0-31); Albumin Level 4.2 g/dL (3.5-5.0); Alkaline Phosphatase 58 U/L (39-117); Aspartate Amino Transferase 54 U/L (5-31); Blood Urea Nitrogen 39 mg/dL (9-16); Calcium 9.5 mg/dL (8.4-10.2); Total Protein 6.9 g/dL (6.5-8.0)
[2024-12-08 08:22] LABS: Anion Gap 15 (12-20); Carbon Dioxide 22 mmol/L (22-29); Chloride 109 mmol/L (96-108); Creatinine Clr Calc Pharmacy 52.3; Estimated Glomerular Filt Rate > 60; Potassium 3.9 mmol/L (3.3-5.1); Sodium 142 mmol/L (135-145)
[2024-12-08 08:48] LABS: Folate 13.5 ng/mL (> or = 4.0); Vitamin B12 > 2000 pg/mL (200-900)
[2024-12-08] MEDS: Sodium Chloride Tab 1 GM TABLET PO ×2 (08:55→21:41)
--- NOTE | 2024-12-08 09:22 | HO.PM.IMPN ---
Subjective Subjective Date of Service: 12/08/24 Interval History: Patient seen out in the milieu, reports that she feels better. Reports that when she does not sleep she feels much worse. On exam she denies any shortness of breath, dizziness, lightheadedness or any other concerning symptoms. Her labs have normalized. Urine with evidence of UTI, we will start on antibiotic therapy, encourage fluids. Review of Systems Denies any shortness of breath, chest pain, headaches, dysuria, abdominal pain or discomfort, nausea, vomiting or diarrhea. Denies fever or chills. Physical Exam Exam: Exam: Alert and oriented X3, alert and verbal Neuro: CN II-X11 intact, no deficits, visual acuity intact EYES: PERRLA, EOM intact ENT: Hearing intact, lips moist Cardiac: S1 S2 RRR, No ectopy Pulmonary: lungs clear to auscultation, No increased WOB. Abdominal: BS active in all 4 quadrants, no guarding or tenderness MSK: Strength 5/5 upper and lower extremities : Deferred Extremities: No edema in lower extremities Psych: Mood stable, Quiet and cooperative. Skin: Warm and dry, Intact Vital Signs: Vital Signs: Last Vital Signs Temp 97.2 F 12/08/24 07:25 Pulse 90 12/08/24 07:25 Resp 16 12/08/24 07:25 BP 111/53 L 12/08/24 07:25 Pulse Ox 93 12/08/24 07:25 O2 Del Method Room Air 12/08/24 07:25 BMI result Body Mass Index 21.3 Objective Data Active Medications Acetaminophen (Acetaminophen 325 Mg Tablet) 650 mg PO Q6H PRN PRN Reason: Pain, Mild (Pain Scale 1-3) Al Hydroxide/Mg Hydroxide (Magnesium Hydrox/Alum Hydrox 30 Ml Oral.Susp) 30 ml PO Q6H PRN PRN Reason: Heartburn/Nausea Atorvastatin Calcium (Atorvastatin Calcium 40 Mg Tablet) 40 mg PO DAILY [facility] Last Admin: 12/08/24 08:55 Dose: 40 mg Documented By: MAGDA Carvedilol (Carvedilol 6.25 Mg Tablet) 18.75 mg PO BID [facility]; Protocol Last Admin: 12/08/24 08:55 Dose: 18.75 mg Documented By: MAGDA Clonidine HCl (Clonidine Hcl 0.1 Mg Tablet) 0.1 mg PO BID PRN; Protocol PRN Reason: Anxiety Last Admin: 11/30/24 16:00 Dose: 0.1 mg Documented By: MAGDA Cyanocobalamin (Cyanocobalamin (Vitamin B-12) 100 Mcg Tablet) 100 mcg PO DAILY [facility] Last Admin: 12/07/24 21:35 Dose: 100 mcg Documented By: ERNESTINA Docusate Sodium (Docusate Sodium 100 Mg Capsule) 100 mg PO BID [facility] Last Admin: 12/08/24 08:55 Dose: 100 mg Documented By: MAGDA Folic Acid (Folic Acid 1 Mg Tablet) 1 mg PO DAILY [facility] Last Admin: 12/08/24 08:55 Dose: 1 mg Documented By: MAGDA Lamotrigine (Lamotrigine 25 Mg Tablet) 50 mg PO DAILY [facility] Last Admin: 12/08/24 08:55 Dose: 50 mg Documented By: MAGDA Magnesium Hydroxide (Milk Of Magnesia 30 Ml Oral.Susp) 30 ml PO DAILY PRN PRN Reason: Constipation Last Admin: 12/03/24 13:20 Dose: 30 ml Documented By: MAGDA Melatonin (Melatonin 3 Mg Tablet) 9 mg PO BEDTIME [facility] Last Admin: 12/07/24 21:36 Dose: 9 mg Documented By: ERNESTINA Multivitamins/Vitamin C (Multivitamin Tablet) 1 tab PO DAILY [facility] Last Admin: 12/08/24 08:55 Dose: 1 tab Documented By: MAGDA Olanzapine (Olanzapine 5 Mg Tablet) 5 mg PO BEDTIME [facility] Last Admin: 12/07/24 21:19 Dose: Not Given Documented By: ERNESTINA Non-Admin Reason: Patient Refused Olanzapine (Olanzapine 5 Mg Tablet) 5 mg PO BID PRN PRN Reason: agitation Sodium Chloride (Sodium Chloride Tab 1 Gm Tablet) 1 gm PO BID [facility] Last Admin: 12/08/24 08:55 Dose: 1 gm Documented By: MAGDA Thiamine HCl (Thiamine Hcl 100 Mg Tablet) 100 mg PO DAILY [facility] Last Admin: 12/08/24 08:55 Dose: 100 mg Documented By: MAGDA Zolpidem Tartrate (Zolpidem Tartrate 5 Mg Tablet) 5 mg PO BEDTIME PRN PRN Reason: Insomnia Labs 12/08/24 07:38 12/08/24 07:38 Labs: Laboratory Results - last 24 hr 12/07/24 12/07/24 12/07/24 10:18 10:18 22:20 MCV 91.3 MCH 30.2 MCHC 33.0 RDW 13.1 Plt Count 410 H D MPV 8.9 L Immature Gran % (Auto) 0.5 H Neut % (Auto) 85.3 H Lymph % (Auto) 8.3 L [place] % (Auto) 5.7 Eos % (Auto) 0.1 Baso % (Auto) 0.1 Lymph # (Auto) 1.2 [place] # (Auto) 0.8 Eos # (Auto) 0.0 Baso # (Auto) 0.0 Abs Immat Gran (auto) 0.07 H Absolute Neuts (auto) 12.0 H Absolute Nucleated RBC 0.000 Nucleated RBC % (auto) 0.0 Anion Gap 24 H 23 H Estim Creat Clear Calc 25.2 Estimated GFR 27 Random Glucose 123 H Calcium 10.0 Total Bilirubin 0.5 AST 62 H ALT 52 H Alkaline Phosphatase 65 Ammonia 34 Total Creatine Kinase 929 H Total Protein 8.2 H Albumin 5.0 Vitamin B12 Folate Urine Color Yellow Urine Appearance Turbid Urine pH 5.5 Ur Specific [place] 1.025 Urine Protein 30 (1+) H Urine Glucose (UA) Negative Urine Ketones 15 Urine Blood Trace H Urine Nitrite Positive H Ur Leukocyte Esterase Moderate (2+) H Urine RBC 3-5 H Urine WBC >50 Ur Squamous Epith Cells 3-5 Urine Bacteria 4+ Hyaline Casts 11-20 12/08/24 07:38 MCV 89.4 MCH 30.9 MCHC 34.6 RDW 12.8 Plt Count 332 MPV 9.1 L Immature Gran % (Auto) 0.5 H Neut % (Auto) 83.5 H Lymph % (Auto) 9.8 L [place] % (Auto) 5.6 Eos % (Auto) 0.2 Baso % (Auto) 0.4 Lymph # (Auto) 1.3 [place] # (Auto) 0.7 Eos # (Auto) 0.0 Baso # (Auto) 0.1 Abs Immat Gran (auto) 0.06 H Absolute Neuts (auto) 11.1 H Absolute Nucleated RBC 0.000 Nucleated RBC % (auto) 0.0 Anion Gap 15 Estim Creat Clear Calc 52.3 Estimated GFR > 60 Random Glucose 111 Calcium 9.5 Total Bilirubin 0.7 AST 54 H ALT 41 H Alkaline Phosphatase 58 Ammonia Total Creatine Kinase 549 H Total Protein 6.9 Albumin 4.2 Vitamin B12 > 2000 H Folate 13.5 Urine Color Urine Appearance Urine pH Ur Specific [place] Urine Protein Urine Glucose (UA) Urine Ketones Urine Blood Urine Nitrite Ur Leukocyte Esterase Urine RBC Urine WBC Ur Squamous Epith Cells Urine Bacteria Hyaline Casts Assessment and Plan (1) Hyponatremia: Status: Resolved Plan 64-year-old female admitted from the medical floor after she presented to the ED with erratic behavior. She is now admitted to the medical floor for further stabilization Bipolar disorder with rj/PTSD Treatment per psychiatric team UTI Slight leukocytosis. Urine with positive nitrates and moderate leukocyte esterase Start Ceftin 250 mg b.i.d. for 5 days Hyperlipidemia/hypertension Continue with Coreg and atorvastatin Hyponatremia History of hyponatremia 1200 cc fluid restriction Lamictal decreased to 50 mgs per psychiatry TSH WNL, serum osmolality 261, urine osmolality 354, Random sodium <20 Continue sodium chloride tablets 1gm BID and follow up BMP. Sodium normal today 142 Nephrology consult if needed History of psychogenic nonepileptic seizures No recent seizure activity reported Thank you for allowing me to participate in the care of this patient. Will follow with you, please notify medical provider with any changes in condition or concerns. Quality Stroke Does the patient have a stroke diagnosis?: No VTE Prior VTE?: No VTE Risk Level:: Medical - low VTE Device Contraindication: Treatment Not Indicated VTE Drug Contraindication: Treatment Not Indicated
--- NOTE | 2024-12-08 09:38 | P.PNPSI_ITS ---
Subjective Subjective Date of Service: 12/08/24 Reason For Visit: Rj Subjective Notes: Conditional Voluntary Interim History: Chart reviewed. Case discussed in team Per team report, pt's mental status improved yesterday evening. CK is trending down. Na and K are now wnl. UA was c/w UTI. T/W consulted w/ the hospitalist, who started pt on Ceftin 250 mg bid. Ordered u cx. T/W met w/ pt's brother, Diogo, after his visit w/ pt and updated him on pt's medical issues and mental status changes. He reported that pt drinks a lot of water, tea and yina marko at home and has been told to limit her fluid intake due to low sodium in the past. He observed an improvement in her mental status last wk and a decline over the weekend and today. He reports that pt's thought processing is pretty clear when she's stable. Her last manic episode was 2 yrs ago. When she's manic, she talks a lot about the past. He had called 911 prior to this admission since she was knocking on his door in the middle of the night, out of breath, asking for help. He checked her vitals and her BP and HR were very high. He reports that she had been hospitalized at [facility] prior to this admission for a seizure. He reports that when pt has the seizure episodes, she loses her ability to speak, flails her arms around and says I'm having a seizure . He reports that pt had quit taking oral haldol and then stopped taking the haldol injection due to side effects. He reports that she seems happier and 'more lively' after stopping it but ultimately became manic ~1-2 wks prior to this admission. Pt had told t/w to leave when I attempted to speak w/ her brother when she met w/ him. Said to stop giving her a false diagnosis. She cooperated w/ meeting with me later in the am and stated that this is not really [facility] even though it's written on the unit and staff's uniforms. She stated that we're at the [place] where she used to work and she knows that's the case since it's cold and drafty here. She said she has depression and anxiety just like everyone else and everybody is bipolar . She said that she overcame trauma, bulimia and alcoholism but I do know that I have striking breath . She is aware that she was started on an antibiotic for a UTI and was surprised since she didn't experience any burning. When asked about constipation, she states I don't know if I have a digestive system . She asked Is my diagnosis crazy . She recalls feeling frozen yesterday when her labs were drawn. She told t/w shortly after that she realized that she was mistaken about this being the [facility] building and is aware that she's at [facility] after looking out the window. Again asked if she's crazy. T/W attempted to discuss medications w/ pt but she stated that she needs to read the list of potential SE and won't take anything that carries a risk of SI or sedation. Medication Compliance: Intermittent Mental Status Exam Mental Status Exam Narrative: Appearance: Casually dressed. Grooming/hygiene- fair. Intense eye contact at times Attitude: variably cooperative. Intrusive at times Speech: Pressured, requires frequent redirection. No dysarthria Motor activity: Generally calm. Required assistance from MHC w/ walking Mood: better Affect: labile Thought process: Flight of ideas, disorganized Thought content: Denies SI/violent ideation. Delusional ideation- reports communicating w/ her dtr telepathically Perception: does not appear to respond to internal stimuli Orientation: as noted above Insight: impaired Judgment: impaired Diagnostics Vital Signs (24Hr): Vital Signs - 24 hr 12/07/24 21:08 12/08/24 07:25 Temperature 97.9 F 97.2 F Pulse Rate 104 H 90 Respiratory Rate 16 16 Blood Pressure 151/81 H 111/53 L Pulse Oximetry 98 93 Oxygen Delivery Method Room Air Room Air BMI result Body Mass Index 21.3 Labs 12/08/24 07:38 12/08/24 07:38 Labs: Laboratory Results - last 48 hr 12/07/24 12/07/24 12/07/24 10:18 10:18 10:18 WBC 14.1 H RBC 4.61 Hgb 13.9 Hct 42.1 MCV 91.3 MCH 30.2 MCHC 33.0 RDW 13.1 Plt Count 410 H D MPV 8.9 L Immature Gran % (Auto) 0.5 H Neut % (Auto) 85.3 H Lymph % (Auto) 8.3 L [place] % (Auto) 5.7 Eos % (Auto) 0.1 Baso % (Auto) 0.1 Lymph # (Auto) 1.2 [place] # (Auto) 0.8 Eos # (Auto) 0.0 Baso # (Auto) 0.0 Abs Immat Gran (auto) 0.07 H Absolute Neuts (auto) 12.0 H Absolute Nucleated RBC 0.000 Nucleated RBC % (auto) 0.0 Sodium 146 H 146 H Potassium 5.1 5.2 H Chloride 107 Carbon Dioxide Anion Gap BUN Creatinine Estim Creat Clear Calc Estimated GFR Random Glucose Calcium Total Bilirubin AST ALT Alkaline Phosphatase Ammonia Total Creatine Kinase Total Protein Albumin Vitamin B12 Folate Urine Color Urine Appearance Urine pH Ur Specific [place] Urine Protein Urine Glucose (UA) Urine Ketones Urine Blood Urine Nitrite Ur Leukocyte Esterase Urine RBC Urine WBC Ur Squamous Epith Cells Urine Bacteria Hyaline Casts 12/07/24 12/07/24 12/07/24 10:18 10:18 10:18 WBC RBC Hgb Hct MCV MCH MCHC RDW Plt Count MPV Immature Gran % (Auto) Neut % (Auto) Lymph % (Auto) [place] % (Auto) Eos % (Auto) Baso % (Auto) Lymph # (Auto) [place] # (Auto) Eos # (Auto) Baso # (Auto) Abs Immat Gran (auto) Absolute Neuts (auto) Absolute Nucleated RBC Nucleated RBC % (auto) Sodium Potassium Chloride 107 Carbon Dioxide 20 L 21 L Anion Gap 24 H 23 H BUN 41 H Creatinine 1.89 H Estim Creat Clear Calc 25.2 Estimated GFR 27 Random Glucose 123 H Calcium 10.0 Total Bilirubin 0.5 AST 62 H ALT 52 H Alkaline Phosphatase 65 Ammonia 34 Total Creatine Kinase 929 H Total Protein 8.2 H Albumin 5.0 Vitamin B12 Folate Urine Color Urine Appearance Urine pH Ur Specific [place] Urine Protein Urine Glucose (UA) Urine Ketones Urine Blood Urine Nitrite Ur Leukocyte Esterase Urine RBC Urine WBC Ur Squamous Epith Cells Urine Bacteria Hyaline Casts 12/07/24 12/08/24 22:20 07:38 WBC 13.2 H RBC 4.04 L Hgb 12.5 Hct 36.1 L MCV 89.4 MCH 30.9 MCHC 34.6 RDW 12.8 Plt Count 332 MPV 9.1 L Immature Gran % (Auto) 0.5 H Neut % (Auto) 83.5 H Lymph % (Auto) 9.8 L [place] % (Auto) 5.6 Eos % (Auto) 0.2 Baso % (Auto) 0.4 Lymph # (Auto) 1.3 [place] # (Auto) 0.7 Eos # (Auto) 0.0 Baso # (Auto) 0.1 Abs Immat Gran (auto) 0.06 H Absolute Neuts (auto) 11.1 H Absolute Nucleated RBC 0.000 Nucleated RBC % (auto) 0.0 Sodium 142 Potassium 3.9 D Chloride 109 H Carbon Dioxide 22 Anion Gap 15 BUN 39 H Creatinine 0.91 Estim Creat Clear Calc 52.3 Estimated GFR > 60 Random Glucose 111 Calcium 9.5 Total Bilirubin 0.7 AST 54 H ALT 41 H Alkaline Phosphatase 58 Ammonia Total Creatine Kinase 549 H Total Protein 6.9 Albumin 4.2 Vitamin B12 > 2000 H Folate 13.5 Urine Color Yellow Urine Appearance Turbid Urine pH 5.5 Ur Specific [place] 1.025 Urine Protein 30 (1+) H Urine Glucose (UA) Negative Urine Ketones 15 Urine Blood Trace H Urine Nitrite Positive H Ur Leukocyte Esterase Moderate (2+) H Urine RBC 3-5 H Urine WBC >50 Ur Squamous Epith Cells 3-5 Urine Bacteria 4+ Hyaline Casts 11-20 Medications Medications Current Medications Acetaminophen (Acetaminophen 325 Mg Tablet) 650 mg PO Q6H PRN PRN Reason: Pain, Mild (Pain Scale 1-3) Al Hydroxide/Mg Hydroxide (Magnesium Hydrox/Alum Hydrox 30 Ml Oral.Susp) 30 ml PO Q6H PRN PRN Reason: Heartburn/Nausea Atorvastatin Calcium (Atorvastatin Calcium 40 Mg Tablet) 40 mg PO DAILY REPLACED BY [facility] Last Admin: 12/08/24 08:55 Dose: 40 mg Carvedilol (Carvedilol 6.25 Mg Tablet) 18.75 mg PO BID REPLACED BY [facility]; Protocol Last Admin: 12/08/24 08:55 Dose: 18.75 mg Clonidine HCl (Clonidine Hcl 0.1 Mg Tablet) 0.1 mg PO BID PRN; Protocol PRN Reason: Anxiety Last Admin: 11/30/24 16:00 Dose: 0.1 mg Docusate Sodium (Docusate Sodium 100 Mg Capsule) 100 mg PO BID REPLACED BY [facility] Last Admin: 12/08/24 08:55 Dose: 100 mg Folic Acid (Folic Acid 1 Mg Tablet) 1 mg PO DAILY REPLACED BY [facility] Last Admin: 12/08/24 08:55 Dose: 1 mg Lamotrigine (Lamotrigine 25 Mg Tablet) 50 mg PO DAILY REPLACED BY [facility] Last Admin: 12/08/24 08:55 Dose: 50 mg Magnesium Hydroxide (Milk Of Magnesia 30 Ml Oral.Susp) 30 ml PO DAILY PRN PRN Reason: Constipation Last Admin: 12/03/24 13:20 Dose: 30 ml Melatonin (Melatonin 3 Mg Tablet) 9 mg PO BEDTIME REPLACED BY [facility] Last Admin: 12/07/24 21:36 Dose: 9 mg Multivitamins/Vitamin C (Multivitamin Tablet) 1 tab PO DAILY ADAN Last Admin: 12/08/24 08:55 Dose: 1 tab Olanzapine (Olanzapine 5 Mg Tablet) 5 mg PO BEDTIME REPLACED BY [facility] Last Admin: 12/07/24 21:19 Dose: Not Given Olanzapine (Olanzapine 5 Mg Tablet) 5 mg PO BID PRN PRN Reason: agitation Sodium Chloride (Sodium Chloride Tab 1 Gm Tablet) 1 gm PO BID REPLACED BY [facility] Last Admin: 12/08/24 08:55 Dose: 1 gm Thiamine HCl (Thiamine Hcl 100 Mg Tablet) 100 mg PO DAILY REPLACED BY [facility] Last Admin: 12/08/24 08:55 Dose: 100 mg Zolpidem Tartrate (Zolpidem Tartrate 5 Mg Tablet) 5 mg PO BEDTIME PRN PRN Reason: Insomnia Allergies Allergies Allergy/AdvReac Type Severity Reaction Status Date / Time olanzapine AdvReac Severe visual Verified 11/25/24 06:23 changes carbamazepine (From Tegretol) AdvReac Intermediate Hyponatremi Verified 11/25/24 06:23 a divalproex sodium (From AdvReac Mild hyperammone Verified 11/25/24 06:23 Depakote) yoan gabapentin AdvReac Mild Unknown Verified 11/25/24 06:23 trazodone AdvReac Mild groggy Verified 11/25/24 06:23 Assessment & Plan Assessment & Plan (1) Rj: Status: Acute Code(s): F30.9 - Manic episode, unspecified (2) Bipolar I, recurrent manic episode, severe with psychotic behavior: Status: Acute Code(s): F31.2 - Bipolar disorder, current episode manic severe with psychotic features (3) Essential hypertension: Status: Acute Code(s): I10 - Essential (primary) hypertension (4) Urinary incontinence: Qualifiers: Urinary Incontinence type: unspecified incontinence Qualified Code(s): R32 - Unspecified urinary incontinence Status: Acute Code(s): R32 - Unspecified urinary incontinence (5) History of psychogenic nonepileptic seizure: Status: Chronic Code(s): Z87.898 - Personal history of other specified conditions (6) Hypernatremia: Status: Acute Code(s): E87.0 - Hyperosmolality and hypernatremia (7) Hyponatremia: Status: Resolved Code(s): E87.1 - Hypo-osmolality and hyponatremia (8) Noncompliance with medication regimen: Status: Resolved Code(s): Z91.148 - Patient's other noncompliance with medication regimen for other reason Plan Ms. Pinto is a 64 yo F with h/o bipolar d/o, PTSD, chronic hyponatremia & PNES who was brought to the [facility] ED by ambulance after her brother called 911 due to her erratic behavior, poor oral intake and med nonadherence. She was medically admitted from 11/25-11/26 and transferred to [facility] on 11/26/24 on a section 12B. Pt presents today w/ sx of rj, disorganized thought process/behavior, hoarse speech and self dialoguing. She is hyponatremic, which could contribute to her current presentation, in addition to being off of her psych meds. Plan: Admitted to for safety and stabilization Legal status- 12B expires 12/01. Will likely need to pursue section 7/8. Bui warning given 5 min safety checks due to disorganized/agitated behavior Admission medical consultation done by hospitalist. Labs, VS and EKG reviewed. Nephrology was consulted for mgmt of hyponatremia. Hyponatremia-- start fluid restriction - 1200 ml/day. Tapered lamotrigine from 100 mg to 50 mg qd since it can cause/contribute to . hyponatremia. Will start the following meds based med regimen rx'd at most recent admission here- haldol 5 mg qhs. Ordered EKG to check QTc tomorrow am lorazepam 1 mg bid standing dose + 1 mg bid prn for agitation/anxiety zolpidem 5 mg qhs prn for insomnia melatonin 9 mg qhs 11/28/24: Patient slept for 5 hours, reported that she does not feel good, perseverative on constipation. She is visible, restless, labile. Denies hallucinations and denies other safety concerns. Sodium is low -125-126, review with patient regarding the results which could affect her mental status.Poor meal and fluid intake. Remain on Fluid restriction. Hospitalist is aware, ordered the sodium chloride 1 g twice a day and repeat labs work tomorrow. Some abnormal EKG results. QTc WNL. Discontinue trazodone.- allergic. 11/29/24: Medication compliant, no side effects. Less labile compared to yesterday. Can be psychotic. Last BM last night. Patient was yelling out loud [employer]- her insurance. Report mood is tired and think she is homeless d/t insurance issues and someone stole money out of my bank . Report to this provider that she fell in the bathroom this morning hitting her back. Denies pain. Do not remember exactly when she fell. Per nursing, patient looks for her son at the chair who was not there and hearing someone calling her and was exit seeking yesterday. Continue to monitor for mental status change, Sodium 130 and BUN 7 this morning. Remain on fluid restriction. Haldol 5mg BID PRN for psychosis. 11/30/24: Mental status has significantly improved, coinciding w/ normalization of sodium this am. Will lower haldol to 2.5 mg tonigiht, given c/o dizziness and orthostatic hypotension this am. Continue fluid restriction and salt tablets for now. Continue daily sodium monitoring. Continue 5 min safety checks due to fall risk. Advised pt to avoid walking if she is feeling unsteady and ask staff for assistance. -Will reach out to pt's outpatient psychiatric provider tomorrow 12/01: Mental status has improved overall. Na++ wnl x 2 days. Per my discussion w/ hospitalist, will try lowering the dose of the Na tablet, continue fluid restrictions for now. Will d/c haldol per pt request, given that her presentation on admission was most likely related to hyponatremia. *Still need to contact pt's outpatient psychiatric provider for care coordination. 12.02: Mental status continues to improve. Ordered sodium for today- will taper NaCl if wnl. Continues to endorse dizziness but seems to be improving overall. She's been ctd on benztropine .5 mg, which is a home medication but she's not on an AP and doesn't have EPS. Will d/c the benztropine since it could be contributing to the dizziness. Left message with pt's outpatient psychiatric provider, Yesika Camacho [employer]EL[employer], at [facility] for at [phone] for care coordination. Faxed release 12/06: Continues on 1:1. Disorganized. Labile. Flight of ideas. Declined medications. Urinated in bed, would not allow nursing to help clean her. Declined to shower. Per nursing, ran down the hallway nude but went back to room. per nursing, slept 2.5 hours last night. continue tx plan. 12/07: Pt has been disorganized today. T/W ordered a physical hold to get stat labs due to concern for recurrent hyponatremia contributing to her presentation. CK was also ordered 2/2 UE rigidity, which might have been volitional during the physical hold. Medicine was consulted due to elevated CK and t/w' s concern for NMS, given that she received multiple IM APs over the weekend and physical restraints. T/W discussed the case w/ Dr. Bustos, who examined her. Input much appreciated. Impression/Recs from Dr. Bustos- Dehydration Impression that the patient is significantly dehydrated. She has chapped lips, and dry skin turgor. Encourage p.o. intake of fluids Hypernatremia Hypovolemic Hypoosmolar hyponatremia The patient had hypovolemic hypoosmolar hyponatremia on initial evaluation, as demonstrated by low serum osmolality, low urine sodium and low serum sodium. This is likely in the setting of poor nutritional intake. She improved after administration of sodium tablets, which replenished her sodium reserve. Her clinical picture is inconsistent with SIADH. RECOMMENDATIONS - encourage p.o. intake of fluids - monitor urinary output - recheck blood work tomorrow Prerenal acute kidney injury Similarly to above, likely prerenal acute kidney injury. Multifactorial etiology, 2/2 dehydration and poor volume status as well as likely secondary from elevated CK/ rhabdomyolysis. Patient's rhabdomyolysis is potentially 2/2 traumatic etiology; from recent chemical and physical restraints. Patient has significant bruising around the right upper extremity. RECOMMENDATIONS - encourage p.o. intake of fluids - monitor urinary output - recheck blood work tomorrow Traumatic Rhabdomyolysis Patient's rhabdomyolysis is potentially 2/2 traumatic etiology; from recent chemical and physical restraints. Patient has significant bruising around the right upper extremity. I am less inclined to believe patient's rhabdomyolysis is 2/2 neuroleptic malignant syndrome. Patient's mental status is similar to it has been for the past few days; no deterioration or change. She has persistent agitation and aggression. Her tremulousness that has been observed relieves when the patient is more relaxed or calm. With recommend close monitoring of the patient's vital signs. Encourage p.o. intake of medications as able to over IM or IV medications. 12/08: CK is trending down. Na and K are now wnl. UA was c/w UTI. T/W consulted w/ the hospitalist, who started pt on Ceftin 250 mg bid. Ordered u cx. Mental status has improved since yesterday but c/w rj. Will order Latuda, which pt hasn't tried, for mood stabilization. I reviewed this plan w/ the pt but unclear how much she understood and she said she needs to look at the SE list for all medications. I reviewed the r/b/a of Latuda with pt verbally. Will also order standing lorazepam for tx of rj since she has agreed to take it in the past. Patient educated on: diagnosis, medication risk/benefits, therapeutic strategies and medical condition Informed Consent: further education needed Reason for continued inpatient stay Substantial Risk for: rapid decompensation and med/psych decompensation Time Spent With Patient Time: Total time managing care of this patient today ____ minutes.
[2024-12-08 11:16] LABS: Appearance Urine Cloudy; Glucose Urine UA Negative (Negative); PH 6.0 (5.0-9.0); Specific Gravity - Urine 1.025 (1.005-1.025); UMIC TRIGGER UA YES
[2024-12-08 20:05] VITALS: BP 153/84; PULSE 89; RESP 16; TEMP 36.4; O2SAT 95
[2024-12-08 21:38] VITALS: BP 153/84; PULSE 89
[2024-12-09 08:00] VITALS: BP 127/68; PULSE 89; RESP 20; TEMP 36.2; O2SAT 99
[2024-12-09 08:19] VITALS: BP 127/68; PULSE 68; RESP 20; TEMP 36.2; O2SAT 99
[2024-12-09] MEDS: Sodium Chloride Tab 1 GM TABLET PO ×2 (08:40→21:08)
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
[2024-12-09 16:09] VITALS: BP 149/83; PULSE 78
[2024-12-09 20:00] VITALS: BP 145/82; PULSE 80; RESP 16; TEMP 36.6; O2SAT 99
--- OUTSIDE RECORDS SUMMARY | 2024-12-09 20:00 | XMS_ITS | Clinical Summary ---
Author Organization Unknown Care Team Providers Care Fine Grade Operator Name Role Phone SHANNAN SMALLS, NOEMI PANTOJA Unavailable Unavaila malik JUNIOR RN, HALEY YATES RN, BASSAM Unavailable Unavailable AKSHAT RN, VICKY Unavailable Unavailable Payers Payer Name Policy Type Policy Number Effective Date Expira tion Date [facility] [id number] [place] [id number] MEDICARE - [facility] - [place] [id number] Problems Condition Name Condition Details Condition Category [...] 03-04 00:00: 00 04-28 23:59 :00 No [id number] Per instruc tions EVERY Per instructio ns EVERY (route: oral) Med Classific ation: Cardiovas cular Therapy Agents melatonin 3 mg tablet 04-28 00:00: 00 02-11 23:59 :00 No [id number] 1 tablet BEDTIME 1 tablet BEDTIME (route: oral) Med Classific ation: Central Nervous System Agents metoprolol succinate ER 50 mg tablet,exte nded release 24 hr 04-28 00:00: 00 02-11 23:59 :00 No [id number] 1 tablet DAILY 1 tablet DAILY (route: oral) Med Classific ation: Cardiovas cular Therapy Agents thiamine HCl (vitamin B1) 100 mg tablet 04-28 00:00: 00 02-11 23:59 :00 No [id number] 1 tablet DAILY 1 tablet DAILY (route: oral) Med Classific ation: Electroly te Balance-N utrmoraa l Products Seroquel 25 mg tablet 05-19 00:00: 00 06-26 23:59 :00 No [id number] 1-2 tablet 2 TIMES DAILY 1-2 tablet 2 TIMES DAILY (route: oral) Med Classific ation: Central Nervous System Agents lisinopril 20 mg tablet 06-28 00:00: 00 02-11 23:59 :00 No [id number] 1 tablet EVERY AM 1 tablet EVERY AM (route: oral) Med Classific ation: Cardiovas cular Therapy Agents olanzapine 15 mg tablet 06-28 00:00: 00 02-11 23:59 :00 No [id number] 1 tablet BEDTIME 1 tablet BEDTIME (route: oral) Med Classific ation: Central Nervous System Agents trazodone 100 mg tablet 06-28 00:00: 00 02-11 23:59 :00 No [id number] Per instruc tions BEDTIME Per instructio ns BEDTIME (route: oral) Med Classific ation: Central Nervous System Agents amlodipine 5 mg tablet 02-20 00:00: 00 04-16 23:59 :00 No [id number] 5 mg EVERY AM 5 mg EVERY AM (route: oral) Med Classific ation: Cardiovas cular Therapy Agents benztropine 0.5 mg tablet 02-20 00:00: 00 07-01 23:59 :00 No [id number] 0.5 mg BEDTIME 0.5 mg BEDTIME (route: oral) Med Classific ation: Central Nervous System Agents carvedilol 6.25 mg tablet 02-20 00:00: 00 02-21 23:59 :00 No [id number] 6.25 mg EVERY AM 6.25 mg EVERY AM (route: oral) Med Classific ation: Cardiovas cular Therapy Agents clonidine HCl 0.1 mg tablet 02-20 00:00: 00 11-21 23:59 :00 No [id number] 0.1 mg NEEDED 0.1 mg NEEDED (route: oral) Med Classific ation: Cardiovas cular Therapy Agents haloperidol 5 mg tablet - 00:00: 00 05-04 23:59 :00 No [id number] 5 mg EVERY AM 5 mg EVERY AM (route: oral) Med Classific ation: Central Nervous System Agents lamotrigine 25 mg tablet - 00:00: 00 05-07 23:59 :00 No [id number] 25 mg BEDTIME 25 mg BEDTIME (route: oral) Med Classific ation: Central Nervous System Agents melatonin 3 mg tablet 02-20 00:00: 00 07-01 23:59 :00 No [id number] 3 mg BEDTIME 3 mg BEDTIME (route: oral) Med Classific ation: Central Nervous System Agents multivitami n tablet 02-20 00:00: 00 11-21 23:59 :00 No [id number] 1 tablet EVERY AM 1 tablet EVERY AM (route: oral) Med Classific ation: Electroly te Balance-N utritiona l Products zolpidem 10 mg tablet 02-20 00:00: 00 07-01 23:59 :00 No [id number] 10 mg BEDTIME 10 mg BEDTIME (route: oral) Med Classific ation: Central Nervous System Agents carvedilol 6.25 mg tablet 02-21 00:00: 00 11-21 23:59 :00 No [id number] 6.25 tablet 2 TIMES DAILY 6.25 tablet 2 TIMES DAILY (route: oral) Med Classific ation: Cardiovas cular Therapy Agents Haldol Decanoate 50 mg/mL intramuscul ar solution -05 00:00: 00 11-21 23:59 :00 No [id number] 1 mL MONTHLY 1 mL MONTHLY (route: intramuscu lar) Med Classific ation: Central Nervous System Agents amitriptyli ne 10 mg tablet 05-07 00:00: 00 05-04 23:59 :00 No [id number] 1 tablet BEDTIME 1 tablet BEDTIME (route: oral) Med Classific ation: Central Nervous System Agents Lamictal 100 mg tablet 3-27 00:00: 00 11-21 23:59 :00 No [id number] 1 tablet BEDTIME 1 tablet BEDTIME (route: oral) Med Classific ation: Central Nervous System Agents clonazepam 2 mg tablet 4-29 00:00: 00 11-21 23:59 :00 No [id number] 0.5 tablet 2 TIMES DAILY 0.5 tablet 2 TIMES DAILY (route: oral) Med Classific ation: Central Nervous System Agents amoxicillin 500 mg tablet -17 00:00: 00 03-06 23:59 :00 No [id number] 1 tablet 3 TIMES DAILY 1 tablet 3 TIMES DAILY (route: oral) Med Classific ation: Anti-Infe ctive Agents chlorhexidi ne gluconate 0.12 % mouthwash -17 00:00: 00 Yes [id number] 15 mL DAILY 15 mL DAILY (route: mucous membrane) Med Classific ation: Mouth-Thr oat-Denta l - Preparati ons IBU 600 mg tablet -17 00:00: 00 03-06 23:59 :00 No [id number] 1 tablet 4 TIMES DAILY 1 tablet 4 TIMES DAILY (route: oral) Med Classific ation: Analgesic , Anti-infl ammatory or Antipyret ic oxycodone-a cetaminophe n 5 mg-325 mg tablet -17 00:00: 00 11-21 23:59 :00 No [id number] 1 tablet EVERY 6 HOURS 1 tablet EVERY 6 HOURS (route: oral) Med Classific ation: Analgesic , Anti-infl ammatory or Antipyret ic amitriptyli ne 25 mg tablet 3-24 00:00: 00 07-01 23:59 :00 No [id number] 1 tablet BEDTIME 1 tablet BEDTIME (route: oral) Med Classific ation: Central Nervous System Agents melatonin 10 mg tablet 5-21 00:00: 00 11-21 23:59 :00 No [id number] 1 tablet BEDTIME 1 tablet BEDTIME (route: oral) Med Classific ation: Central Nervous System Agents mirtazapine 7.5 mg tablet - 00:00: 00 11-21 23:59 :00 No [id number] 1 tablet BEDTIME 1 tablet BEDTIME (route: oral) Med Classific ation: Central Nervous System Agents aspirin 81 mg tablet 2024-02 00:00: 00 Yes [id number] 1 tablet EVERY AM 1 tablet EVERY AM (route: oral) Med Classific ation: Hematolog ical Agents atorvastati n 40 mg tablet 2024-02 00:00: 00 Yes [id number] 1 tablet BEDTIME 1 tablet BEDTIME (route: oral) Med Classific ation: Cardiovas cular Therapy Agents benztropine 0.5 mg tablet 2024-02 00:00: 00 Yes [id number] 1 tablet BEDTIME 1 tablet BEDTIME (route: oral) Med Classific ation: Central Nervous System Agents carvedilol 6.25 mg tablet 2024-02 00:00: 00 Yes [id number] 6.25 tablet EVERY PM 6.25 tablet EVERY PM (route: oral) Med Classific ation: Cardiovas cular Therapy Agents clonazepam 2 mg tablet 2024-02 00:00: 00 Yes [id number] 0.5 tablet EVERY PM 0.5 tablet EVERY PM (route: oral) Med Classific ation: Central Nervous System Agents clonidine HCl 0.1 mg tablet 2024-02 00:00: 00 Yes [id number] 0.1 mg EVERY PM 0.1 mg EVERY PM (route: oral) Med Classific ation: Cardiovas cular Therapy Agents Lamictal 100 mg tablet 2024-02 00:00: 00 Yes [id number] 1 tablet EVERY AM 1 tablet EVERY AM (route: oral) Med Classific ation: Central Nervous System Agents melatonin 10 mg tablet 2024-02 00:00: 00 Yes [id number] 1 tablet BEDTIME 1 tablet BEDTIME (route: oral) Med Classific ation: Central Nervous System Agents multivitami n tablet 2024-02 00:00: 00 Yes [id number] 1 tablet EVERY AM 1 tablet EVERY AM (route: oral) Med Classific ation: Electroly te Balance-N utritiona l Products thiamine HCl (vitamin B1) 100 mg capsule 2024-0211 00:00: 00 Yes [id number] 1 capsule EVERY AM 1 capsule EVERY AM (route: oral) Med Classific ation: Electroly te Balance-N utritiona l Products Vital Signs Vital Name Observation Time Observation Value Commen ts Temperature 2024-11-21 10:31:00.000 98.6 [degF] Temperature 2024-11-02 15:53:00.000 97.4 [degF] Temperature 2024-10-26 16:00:00.000 97.2 [degF] BMI (%) 2024-11-21 10:05:10.000 21 kg/m2 Height 2024-11-21 10:05:03.000 62 [in_us] Pulse 2024-11-21 10:31:00.000 60 /min Pulse 2024-11-18 08:54:00.000 81 /min Pulse 2024-11-16 08:28:00.000 73 /min Pulse 2024-11-13 08:37:00.000 80 /min Pulse 2024-11-11 08:46:00.000 64 /min Pulse 2024-11-09 09:00:00.000 70 /min Pulse 2024-11-06 08:32:00.000 66 /min Pulse 2024-11-04 11:45:00.000 60 /min Pulse 2024-11-02 15:53:00.000 72 /min Pulse 2024-10-26 16:00:00.000 61 /min O2 Saturation (%) 2024-11-21 10:32:00.000 98 % Respirations 2024-11-21 10:31:00.000 18 /min Respirations 2024-11-18 08:54:00.000 18 /min Respirations 2024-11-16 08:28:00.000 18 /min Respirations 2024-11-13 08:36:00.000 18 /min Respirations 2024-11-06 08:32:00.000 18 /min Respirations 2024-11-02 15:53:00.000 18 /min Respirations 2024-10-26 16:00:00.000 18 /min Weight (lbs) 2024-11-21 10:05:10.000 118 [lb_av] Systolic Blood Pressure 2024-11-21 10:31:00.000 130 mm [Hg] Systolic Blood Pressure 2024-11-18 08:54:00.000 102 mm [Hg] Systolic Blood Pressure 2024-11-16 08:28:00.000 148 mm [Hg] Systolic Blood Pressure 2024-11-13 08:36:00.000 142 mm [Hg] Systolic Blood Pressure 2024-11-11 08:46:00.000 137 mm [Hg] Systolic Blood Pressure 2024-11-09 09:00:00.000 119 mm [Hg] Systolic Blood Pressure 2024-11-06 08:32:00.000 98 mm[ Hg] Systolic Blood Pressure 2024-11-04 11:45:00.000 114 mm [Hg] Systolic Blood Pressure 2024-11-02 15:53:00.000 117 mm [Hg] Systolic Blood Pressure 2024-10-26 16:00:00.000 124 mm [Hg] Diastolic Blood Pressure 2024-11-21 10:31:00.000 70 mm [Hg] Diastolic Blood Pressure 2024-11-18 08:54:00.000 77 mm [Hg] Diastolic Blood Pressure 2024-11-16 08:28:00.000 98 mm [Hg] Diastolic Blood Pressure 2024-11-13 08:36:00.000 88 mm [Hg] Diastolic Blood Pressure 2024-11-11 08:46:00.000 87 mm [Hg] Diastolic Blood Pressure 2024-11-09 09:00:00.000 82 mm [Hg] Diastolic Blood Pressure 2024-11-06 08:32:00.000 72 mm [Hg] Diastolic Blood Pressure 2024-11-04 11:45:00.000 76 mm [Hg] Diastolic Blood Pressure 2024-11-02 15:53:00.000 73 mm [Hg] Diastolic Blood Pressure 2024-10-26 16:00:00.000 87 mm [Hg] Plan of Treatment Planned Activity [...] TO PRE-POUR MEDICATION PER MEDICATION LIST EACH VISIT] Future Scheduled Test SKILLED NU RSE TO O/A OF PATIENTS MENTAL/BEHAVIORAL STATUS, ASSESS VITAL SIGNS EACH VISIT, ALLOW 2 PRNS FOR MEDICATION MANAGEMENT. [code = SKILLED NURSE TO O/A OF PATIENTS MENTAL/BEHAVIORAL STATUS, ASSESS VITAL SIGNS EACH VISIT, ALLOW 2 PRNS FOR MEDICATION MANAGEMENT.] Future [...] WEEKLY.] Future Scheduled Test SKILLED NU RSE TO ASSESS PATIENT S PSYCHOSOCIAL STATUS TO IDENTIFY POTENTIAL ISSUES THAT MAY COMPLICATE THE PROVISION OF THE PLAN OF CARE INCLUDING THE PATIENT S ABILITY TO ACCESS COMMUNITY RESOURCES AND PSYCHOSOCIAL SUPPORT SERVICES. [code = SKILLED NURSE TO ASSESS PATIENT S PSYCHOSOCIAL STATUS TO IDENTIFY POTENTIAL ISSUES THAT MAY COMPLICATE THE PROVISION OF THE PLAN OF CARE INCLUDING THE PATIENT S ABILITY TO ACCESS COMMUNITY RESOURCES AND PSYCHOSOCIAL SUPPORT SERVICES.] Future Scheduled Test SKILLED NU RSE WILL MAINTAIN SITUATIONAL AWARENESS FOR SAFETY AND WILL NOTIFY CLINICAL PHOTOGRAPHY COORDINATOR AND PHYSICIAN/PROVIDER WITH ANY CHANGE IN CONDITION. [code = SKILLED NURSE WILL MAINTAIN SITUATIONAL AWARENESS FOR SAFETY AND WILL NOTIFY CLINICAL PHOTOGRAPHY COORDINATOR AND PHYSICIAN/PROVIDER WITH ANY CHANGE IN CONDITION.] [...] GET MY OWN PLACE AND CAR Goal 2024-04-13 Patient Goal - T O GET MY OWN PLACE AND CAR Goal 2024-06-10 Patient Goal - T O GET MY OWN PLACE AND CAR Goal 2024-08-10 Patient Goal - T O GET MY OWN PLACE AND CAR Goal 2024-10-07 Patient Goal - T O GET MY OWN PLACE AND CAR Goal Patient Goal - T O GET MY OWN PLACE AND CAR Goal Provider Goal - A PLAN OF CARE WILL BE ESTABLISHED THAT MEETS PATIENT'S LONG-TERM NEEDS AND INCLUDES PATIENT GOAL FOR HOME [...] THROUGHOUT CERTIFICATION PERIOD. Goal Provider Goal - PSYCHOSOCIAL NEEDS WILL BE IDENTIFIED AND PLAN IMPLEMENTED TO MINIMIZE RISK THROUGHOUT CERTIFICATION PERIOD. Goal Provider Goal - PATIENT WILL REMAIN SAFE IN THE COMMUNITY AND WILL BE FREE OF DANGER TO SELF AND OTHERS THROUGHOUT THE CERTIFICATION PERIOD. Encounters Start Date/Time End Date/Time Encounter Type Admission Type Attending [facility] Care Department Encounter ID Discharge Date Discharge Status Discharge Condition Discharge Reason Percent Goals Met 2024-10-12 00:00:00 2024-12-10 00:00:00 Outpatient RECERTIFIC ATION BASSAM YATES [facility] [id number] 31.25
[2024-12-10 08:00] VITALS: BP 116/61; PULSE 83; RESP 15; TEMP 36.3; O2SAT 96
[2024-12-10 09:33] VITALS: BP 116/61; PULSE 83
[2024-12-10] MEDS: Sodium Chloride Tab 1 GM TABLET PO ×2 (09:34→21:07)
[2024-12-10 10:21] LABS: MANUAL DIFF FLAG NO
[2024-12-10 10:42] LABS: Hematocrit 35.0 % (37.0-47.0); Hemoglobin 11.7 g/dl (12.0-16.0); Imm Gran Abs Auto 0.02 X10*3/uL (0.00-0.03); Imm Gran Pct Auto 0.2 % (0.0-0.4); Lymphocytes Absolute Auto 1.5 X10*3/uL (1.2-4.9); Mean Corpuscular HGB Conc 33.4 g/dl (31.0-35.0); Mean Corpuscular Hemoglobin 30.7 pg (27.0-33.0); Mean Corpuscular Volume 91.9 fL (80.0-98.0); NRBC Abs Auto 0.000 X10*3/uL (0.0-0.012); NRBC Pct Auto 0.0 /100WBC (0.0-0.2); Platelet Count 278 X10*3/uL (160-400); Red Blood Count 3.81 X10*6/uL (4.20-5.50); White Blood Count 8.6 X10*3/uL (4.8-10.8)
[2024-12-10 11:23] LABS: Anion Gap 11 (12-20); Blood Urea Nitrogen 25 mg/dL (9-16); Calcium 8.9 mg/dL (8.4-10.2); Carbon Dioxide 25 mmol/L (22-29); Chloride 107 mmol/L (96-108); Creatinine Clr Calc Pharmacy 63.5; Estimated Glomerular Filt Rate > 60; Potassium 4.2 mmol/L (3.3-5.1); Sodium 139 mmol/L (135-145)
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
[2024-12-10 21:00] VITALS: BP 163/71; PULSE 91; RESP 16; TEMP 36.5; O2SAT 97
[2024-12-11] MEDS: Milk of Magnesia 30 ML ORAL.SUSP PO (05:23)
--- NOTE | 2024-12-11 05:29 | PC.NURSE ---
Caryn reported some constipation, was given Milk of Mag PO prn
[2024-12-11 07:36] VITALS: BP 130/59; PULSE 88; RESP 18; TEMP 36; O2SAT 97
[2024-12-11 10:08] VITALS: BP 130/59; PULSE 88
[2024-12-11] MEDS: Sodium Chloride Tab 1 GM TABLET PO ×2 (10:09→20:59)
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
[2024-12-11 21:00] VITALS: BP 180/100; PULSE 105; RESP 20; TEMP 36.4; O2SAT 99
[2024-12-11 23:00] VITALS: BP 131/65; PULSE 79; RESP 18
[2024-12-12 03:27] VITALS: BP 161/86
[2024-12-12 07:15] VITALS: BP 163/93; PULSE 92; RESP 16; TEMP 35.8; O2SAT 98
[2024-12-12] MEDS: Sodium Chloride Tab 1 GM TABLET PO (09:05)
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
[2024-12-12 12:56] LABS: Anion Gap 13 (12-20); Carbon Dioxide 23 mmol/L (22-29); Chloride 106 mmol/L (96-108); Potassium 4.2 mmol/L (3.3-5.1); Sodium 138 mmol/L (135-145)
[2024-12-12 20:00] VITALS: BP 190/98; PULSE 101
[2024-12-12 21:44] VITALS: BP 97/53; PULSE 97; RESP 16; TEMP 36.2; O2SAT 96
[2024-12-13 02:34] VITALS: BP 163/98; PULSE 95; O2SAT 96
--- NOTE | 2024-12-13 02:35 | PC.NURSE ---
patient has been up since change of t/w shift at 1930. has been in constant dialogue. when checking in on patient her anxiety level is high, although will dispute this. allowed for VS to be taken. VS elevated is refusing any oral intervention. refusing all medications.
[2024-12-13 08:09] VITALS: BP 142/94; PULSE 100; RESP 18; TEMP 36.2; O2SAT 99
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
--- NOTE | 2024-12-13 13:18 | PC.NURSE ---
Dr. Rg authorized late administration of AM medications.
[2024-12-14 00:07] VITALS: BP 94/57; PULSE 86; RESP 14; O2SAT 98
[2024-12-14 07:45] VITALS: BP 95/53; PULSE 77; RESP 16; TEMP 36.8; O2SAT 99
[2024-12-14 08:41] VITALS: BP 110/55; PULSE 95
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
[2024-12-14 20:00] VITALS: BP 103/55; PULSE 80; RESP 16; TEMP 36.8; O2SAT 96
[2024-12-14 22:46] VITALS: BP 83/51; PULSE 76; O2SAT 100
[2024-12-15 03:06] VITALS: BP 97/53; PULSE 76
[2024-12-15 06:00] VITALS: BP 120/67; PULSE 100; O2SAT 99
[2024-12-15 08:22] VITALS: BP 132/74; PULSE 73; RESP 16; TEMP 36.7; O2SAT 100
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
== END 2024-12-15 11:15 | disposition home or self-care (01) | DRG 885 ==
PROVIDERS: Nurse Practitioner Family; Physician Assistant Medical; Admitting Provider Psychiatry & Neurology Psychiatry; Visit Provider Psychiatry & Neurology Psychiatry
DX: F31.2 Bipolar disorder, current episode manic severe with psychotic features (principal); E87.1 Hypo-osmolality and hyponatremia; N17.9 Acute kidney failure, unspecified; N39.0 Urinary tract infection, site not specified; I10 Essential (primary) hypertension; E86.0 Dehydration; E86.1 Hypovolemia; Z78.1 Physical restraint status; T79.6XXA Traumatic ischemia of muscle, initial encounter; F43.10 Post-traumatic stress disorder, unspecified; R56.9 Unspecified convulsions; E78.5 Hyperlipidemia, unspecified; Z87.891 Personal history of nicotine dependence; Z79.899 Other long term (current) drug therapy
CPT/HCPCS: 36415; 80048; 80051; 80053; 81001; 81003; 82140; 82550; 82607; 82746; 83735; 83930; 83935; 84300; 84443; 85025; 87086; 93005; J1200; J1630; J3230; J3360

== ENCOUNTER 2024-11-26 15:13 | Outpatient (BNV) | payer OTHER, SELFPAY | END 2024-11-30 14:52 | PROVIDERS: Admitting Provider Psychiatry & Neurology Psychiatry; Visit Provider Internal Medicine Cardiovascular Disease | DX: I44.7 Left bundle-branch block, unspecified (principal); I25.2 Old myocardial infarction | CPT/HCPCS: 93010 ==

== ENCOUNTER 2024-11-26 15:13 | Outpatient (BNV) | payer OTHER, SELFPAY | END 2024-11-28 08:00 | PROVIDERS: Admitting Provider Psychiatry & Neurology Psychiatry; Visit Provider Internal Medicine Cardiovascular Disease | DX: I25.2 Old myocardial infarction (principal) | CPT/HCPCS: 93010 ==

== ENCOUNTER 2024-11-26 15:13 | Outpatient (BNV) | payer OTHER, SELFPAY | END 2024-12-07 11:24 | PROVIDERS: Admitting Provider Psychiatry & Neurology Psychiatry; Visit Provider Internal Medicine | DX: R00.0 Tachycardia, unspecified (principal); I25.2 Old myocardial infarction | CPT/HCPCS: 93010 ==

== ENCOUNTER → 2024-11-26 15:13 | Outpatient (BNV) | payer OTHER, SELFPAY | PROVIDERS: Admitting Provider Psychiatry & Neurology Psychiatry; Visit Provider Nurse Practitioner Family | DX: E87.1 Hypo-osmolality and hyponatremia (principal) | CPT/HCPCS: 99221; 99231; 99499 ==

== ENCOUNTER → 2024-11-26 15:13 | Outpatient (BNV) | payer OTHER, SELFPAY | PROVIDERS: Admitting Provider Psychiatry & Neurology Psychiatry; Visit Provider Psychiatry & Neurology Psychiatry | DX: F31.2 Bipolar disorder, current episode manic severe with psychotic features (principal); E87.1 Hypo-osmolality and hyponatremia; F43.10 Post-traumatic stress disorder, unspecified | CPT/HCPCS: 90792; 99232; 99233; 99499 ==

== ENCOUNTER 2025-01-06 10:11 | Inpatient (IN) | payer OTHER, SELFPAY ==
[2025-01-06] VITALS (20 sets, daily range): BP systolic 78–170; BP diastolic 40–92; PULSE 82–132; RESP 12–22; TEMP 36.6–37; O2SAT 94–99; BMI 23.9
--- NOTE | ~2025-01-06 | CT_ITS ---
CLINICAL HISTORY: ams CT head without contrast Comparison: None provided Findings: No intra-axial mass, midline shift, hydrocephalus, or acute hemorrhage. Diffuse volume loss. Periventricular and subcortical white matter hypoattenuation likely chronic small-vessel ischemic changes. Intracranial atherosclerosis. There is no sinus or mastoid fluid. The orbits are within normal limits. No skull fracture. IMPRESSION: 1. No acute intracranial findings. This document has been electronically signed by: Argelia Heller MD on 01/06/2025 23:10:11
--- NOTE | ~2025-01-06 | XR_ITS ---
CLINICAL HISTORY: infection 1 view chest x-ray Comparison: CR/SR - XR CHEST 2 VIEWS - 01/11/23 14:39 EST Findings: The lungs are clear. Normal size heart. No acute fracture. Right shoulder arthroplasty. IMPRESSION: 1. No acute findings. This document has been electronically signed by: Argelia Heller MD on 01/06/2025 18:04:45
--- NOTE | ~2025-01-06 | CT_ITS ---
CLINICAL HISTORY: sepsis CT abdomen and pelvis with contrast Comparison: US/SR - US PELVIS TRANSABDOMINAL AND TRANSVAGINAL - 04/10/23 14:35 EST Findings: Mild dependent atelectasis. Liver, gallbladder, pancreas, and spleen are within normal limits. Nodular thickening of both adrenal glands. No hydronephrosis. Symmetric contrast enhancement of the kidneys. Nonspecific mild bilateral perinephric stranding. Colonic diverticulosis without acute inflammation. Moderate stool burden. No bowel obstruction, pneumatosis or pneumoperitoneum. Normal appendix. Aortic atherosclerosis. No aneurysm. Portal venous system is patent. No enlarged abdominopelvic lymph nodes. Distended urinary bladder without wall thickening. Enlarged cervix corresponding to fibroid seen on prior ultrasound. Chronic appearing superior compression fracture of T12. Posterior and intervertebral body fusion from L4 through S1. No acute fracture. IMPRESSION: 1. No intra-abdominal source of infection identified. 2. No acute findings. This document has been electronically signed by: Argelai Heller MD on 01/06/2025 22:58:38
--- NOTE | ~2025-01-06 | CT_ITS ---
CLINICAL HISTORY: sepsis CT chest with contrast Comparison: CR - XR CHEST 1V - 01/06/25 17:22 EST Findings: The heart size is normal. No pulmonary embolus. The visualized thyroid and mediastinum are unremarkable. Mild dependent atelectasis. No consolidation. No pleural effusion or pneumothorax. No acute findings in the visualized upper abdomen. Subacute to chronic inferior compression fracture of T9. No retropulsion. Chronic appearing superior endplate compression fracture of T12 with minimal retropulsion. No significant spinal canal stenosis. Right shoulder arthroplasty. IMPRESSION: 1. No acute intrathoracic findings. No source of infection identified. 2. Subacute to chronic inferior compression fracture of T9 without retropulsion. Chronic appearing superior endplate compression fracture of T12 with minimal retropulsion. No significant spinal canal stenosis. Correlate clinically. This document has been electronically signed by: Argelia Heller MD on 01/06/2025 23:06:14
--- NOTE | 2025-01-06 10:22 | ED_ITS ---
HPI - Psych General Chief Complaint: Psychiatric Symptoms Stated Complaint: SEC 12,THREATS TO BROTHER,MANIC, C[employer] ON BOARD Time Seen by Provider: 01/06/25 10:22 Source: patient, EMS and police Limitations: other (manic ) History of Present Illness ED Provider: HPI Narrative: 64-year-old woman with bipolar disorder, presenting being manic, not really able to provide good history at this time, she presented in a section 12 by police, threats of HI to her brother which is a recurrent theme from my understanding. Related Data Home Medications ?Medication ?Instructions ?Recorded ?Confirmed atorvastatin 40 mg tablet 40 mg PO DAILY 11/25/2412/13 docusate sodium 100 mg capsule 100 mg PO DAILY PRN Con stipation 11/25/24 01/06/25 benztropine 0.5 mg tablet 0.5 mg PO BEDTIME 01/06/25 1 03/08/24 lamotrigine 25 mg tablet 125 mg PO DAILY 01/06/25 lorazepam 0.5 mg tablet 0.75 mg PO TID 01/06/2512/13 lurasidone 80 mg tablet 80 mg PO DAILY 01/06/2512/13 Previous Rx's ?Medication ?Instructions ?Recorded clonidine HCl 0.1 mg tablet 0.1 mg PO BID PRN Anxiety #3 tabs 02/18/23 carvedilol 6.25 mg tablet 18.75 mg PO BID 30 days #180 tabs 09/11/24 folic acid 1 mg tablet 1 mg PO DAILY 30 days #30 ta bs 12/15/24 sodium chloride 1,000 mg soluble 1,000 mg PO BID 30 da ys #60 tabs 12/15/24 tablet Allergies Allergy/AdvReac Type Severity Reaction Status Date / Time olanzapine AdvReac Severe visual Verified 01/06/25 10:30 changes carbamazepine (From Tegretol) AdvReac Intermediate Hyponatremi Verified 01/06/25 10:30 a divalproex sodium (From AdvReac Mild hyperammone Verified 01/06/25 10:30 Depakote) yoan gabapentin AdvReac Mild Unknown Verified 01/06/25 10:30 trazodone AdvReac Mild groggy Verified 01/06/25 10:30 Review of Systems 2 Review of Systems: Yes Unobtainable due to mental condition (pt is in a manic state) [facility] Past Medical History Medical History PTSD (post-traumatic stress disorder) Labile hypertension Leiomyoma Bipolar I disorder Tinea unguium History of psychogenic nonepileptic seizure Impaired fasting glucose Dyslipidemia (high LDL; low HDL) Hx of suicide attempt On beta baldemar at home Arthritis Anxiety Diastasis recti Umbilical hernia Compression fracture of L1 lumbar vertebra Dupuytren's contracture of left hand Lumbar disc herniation Essential hypertension Ventral hernia Urinary incontinence Surgical History H/O shoulder surgery Hx of elbow surgery Hx of repair of left rotator cuff Hx of colonoscopy History of lumbar fusion Family History Family History Father Diabetes mellitus Mother COPD (chronic obstructive pulmonary disease) Sister Diabetes mellitus Glaucoma Other Mental health disorder Substance use disorder Social History Social History Household Members: None Household Members Other:: brother Housing: Homeless Are you a primary acute care nursing assistant to a significant other at home: No Do you presently have visiting nurse or other home services: No Unable to assess alcohol history related to: Refusing to respond Alcohol intake: current Alcohol intake frequency: holidays/special occasions only Patient Tobacco Use Status: Former Tobacco user Tobacco use type: Cigarette Cigarette Packs Per Day: 1 Cigarettes Per Day: 20.0 e-Cigarette/Vaping Use: Never Used Second Hand Smoke Exposure: No Substance Use Type: Marijuana Advance Directives: Yes Advance Directives on File: Yes Advance Directives Date on File: 11/26/22 Do you have a plan to hurt others: Vague Nutrition Risks: No Nutritional Risk Patient : No service: No Current occupational status: disabled Sexual orientation: Straight/Heterosexual Cognitive needs: No Hearing needs: No Vision needs: No Physical Exam 2 Exam: Exam: ?General: ?Age-appropriate No facial trauma, no scleral icterus, no jaundice Pressured speech, pacing, some degree of agitation MSK: FROM, strength 5/5 all extremities Skin: Warm, dry, intact, no bruising ?Neuro: ?Alert and answers some questions, moving upper and lower extremities symmetrically, no obvious facial asymmetry noted, cranial nerves 2-12 intact Vital Signs: Vital Signs: Last Vital Signs Temp 98.6 F 01/07/25 02:17 Pulse 70 01/07/25 05:46 Resp 14 01/07/25 05:46 BP 116/76 01/07/25 05:46 Pulse Ox 97 01/07/25 05:46 O2 Del Method Room Air 01/07/25 05:46 BMI result Body Mass Index 23.9 Course Course Course Narrative: 4:31 PM 01/06/2025 (Daphnie Morton DO): Assumed care for the patient. Patient initially was about to be admitted to inpatient psychiatric team however patient is noted to be leukocytosis with elevated lactic acid of 3.2. This is likely secondary from her agitation. She has no fever no tachycardia. However we will plan to order chest x-ray blood culture and a dose of antibiotic here. IV fluid with a also be provided the patient. We will obtain a CK level VBG as well. She does have some signs of at acidosis on chemistry. Patient will be moved down to the Behavioral pod into a medical room. 2:30 AM 01/07/2025 (Daphnie Morton DO): Lactic acid has climbed to 3.9. Patient was increasingly agitated. 2 mg IV Versed was given. Patient has had transient hypotension from this 2 mg IV Versed. After IV fluid resuscitation her lactic acid has resolved. Her leukocytosis has improved. However the patient's blood pressure remains borderline and soft. Last blood pressure was 94/57. I did discuss the case with the hospitalist Dr. Larson. Given leukocytosis and elevated lactic acid and signs of low blood pressure. Recommend consulting ICU team at this time. Discussed the case with Dr. Suh. Does not think patient has meet ICU criteria. Patient did obtain a CT imaging. CT head is negative. CT chest and abdomen and pelvis is negative for any signs of sign of infection. I do not think patient has infection at this time. Her leukocytosis lactic acid may be secondary to dehydration. This may be secondary to her psychiatric symptoms. Patient has received a total of 5 L of normal saline. She is making plenty of urine. Patient will be admitted to inpatient medicine team. Medications Administered Generic Name Dose Route Start Last Admin Trade Name Freq PRN Reason Stop Dose Admin Sodium Chloride 1,000 mls @ 125 mls/hr 01/07/25 02:15 01/07/25 02:28 Ns IVCONT 125 mls/hr .Q8H ADAN Administration Discontinued Medications Generic Name Dose Route Start Last Admin Trade Name Zena PRN Reason Stop Dose Admin Diazepam 4 mg 01/06/25 10:28 01/06/25 10:55 Diazepam 2 Mg Tablet PO 01/06/25 10:29 Not Given ONCE ONE Diazepam 5 mg 01/06/25 10:43 01/06/25 10:55 Diazepam 10 Mg/2 Ml Cartridge IM 01/06/25 10:44 5 mg STAT STA Administration Diazepam 5 mg 01/06/25 17:43 01/06/25 18:06 Diazepam 5 Mg Tablet PO 01/06/25 17:44 Not Given ONCE ONE Haloperidol 5 mg 01/06/25 10:28 01/06/25 10:55 Haloperidol 5 Mg Tablet PO 01/06/25 10:29 Not Given ONCE ONE Haloperidol Lactate 5 mg 01/06/25 10:43 01/06/25 10:55 Haloperidol Lactate 5 Mg/Ml Vial IM 01/06/25 10:44 5 mg STAT STA Administration Sodium Chloride 1,000 mls @ 999 mls/hr 01/06/25 11:30 01/06/25 12:39 Ns IV 01/06/25 12:30 Infused .Q1H1M ADAN Infusion Ceftriaxone Sodium 2 gm/ 50 mls @ 100 mls/hr 01/06/25 16:20 01/06/25 17:25 Sodium Chloride IV 01/06/25 16:49 Infused ONCE ONE Infusion Sodium Chloride 1,000 mls @ 999 mls/hr 01/06/25 16:30 01/06/25 18:11 Ns IV 01/06/25 17:30 Infused .Q1H1M ADAN Infusion Sodium Chloride 1,000 mls @ 999 mls/hr 01/06/25 17:45 01/06/25 18:06 Ns IV 01/06/25 18:45 Not Given .Q1H1M ADAN Sodium Chloride 1,000 mls @ 999 mls/hr 01/06/25 18:30 01/06/25 20:00 Ns IV 01/06/25 19:30 Infused .Q1H1M ADAN Infusion Sodium Chloride 1,000 mls @ 999 mls/hr 01/06/25 22:45 01/07/25 00:10 Ns IV 01/06/25 23:45 Infused .Q1H1M ADAN Infusion Albumin Human 50 mls @ 100 mls/hr 01/07/25 02:06 01/07/25 03:05 Kedbumin 25 % IV 01/07/25 02:35 Infused ONCE ONE Infusion Iohexol 85 ml 01/06/25 20:54 01/06/25 20:55 Iohexol 350 Mg/Ml 100 Ml Infus..Btl IV 01/06/25 20:55 85 ml ONCE ONE Administration Midazolam HCl 2 mg 01/06/25 18:01 01/06/25 18:08 Midazolam Hcl 2 Mg/2 Ml Vial IVPUSH 01/06/25 18:02 2 mg ONCE ONE Administration Medical Decision Making Medical Decision Making MDM Narrative: 10:37 AM 01/06/2025 (Dr. Ayush Naranjo): Presenting with a manic episode, no evidence for any trauma, she has been ambulatory, somewhat agitated and more manic according to R.N. provider has better before then her typical presentation, we will trial p.o. meds for deescalation, and crisis evaluation, noted that in November patient was admitted for hyponatremia, UTI, and elevated troponin 10:44 AM 01/06/2025 (Dr. Ayush Naranjo): Patient threw p.o. medications on the ground, will need to move towards IM meds, restraint orders done 11:21 AM 01/06/2025 (Dr. Ayush Naranjo): Became hypotensive after IM meds, I suspect likely dehydration during her manic state, we will have patient brought up front for IV fluids and monitoring, she does have leukocytosis, the rest of the labs are still pending, will obtain blood cultures and straight cath urine 12:49 PM 01/06/2025 (Dr. Ayush Naranjo): Blood pressures improved, patient is hyponatremic, with elevated BUN likely hypovolemic hyponatremia has had this in the past, we will repeat lactic and BMP, UA unremarkable, heart rate and blood pressure has improved with both anxiolytics and IV fluids with a changes she has had such as initially tachycardia, leukocytosis slight lactic elevation without fevers unremarkable urine, is likely consistent with dehydration and underlying rj and does not constitute infectious etiology 1:40 PM 01/06/2025 (Dr. Ayush Naranjo): Patient is medically cleared, will be inpatient level of care, her lactic went down to 1.9 with IV fluids, she is no longer hypotensive 4:00 PM 01/06/2025 (Dr. Ayush Naranjo): Dr. Morton took over pt's care, he lactic level bumped again which maybe multifactorialm but she is meeting septic criteria at this time, will get xray, dose of abx and admission Differential Diagnosis Differential Diagnoses: The differential diagnosis associated with the presentation includes (Rj, SI, HI, EtOH, substance use, trauma) Admission/Observation Consideration of admission/observation: Escalation of care including admission/observation considered Consult Healthcare Provider Management of the patient was discussed with: Behavioral Health Provider Lab Data 01/07/25 04:28 01/07/25 04:28 Labs: Lab Results 01/06/25 01/06/25 01/06/25 Range/Units 10:39 11:56 12:15 WBC 19.5 H (4.8-10.8) X10*3/uL RBC 4.57 (4.20-5.50) X10*6/uL Hgb 14.3 D (12.0-16.0) g/dl Hct 39.9 (37.0-47.0) % MCV 87.3 (80.0-98.0) fL MCH 31.3 (27.0-33.0) pg MCHC 35.8 H (31.0-35.0) g/dl RDW 12.9 (11.0-16.0) % Plt Count 385 D (160-400) X10*3/uL MPV 9.1 L (9.4-12.3) fL Immature Gran % (Auto) 0.6 H (0.0-0.4) % Neut % (Auto) 90.4 H (45-73) % Lymph % (Auto) 4.5 L (20-40) % [place] % (Auto) 3.9 (2-11) % Eos % (Auto) 0.3 (0-4) % Baso % (Auto) 0.3 (0-2) % Lymph # (Auto) 0.9 L (1.2-4.9) X10*3/uL [place] # (Auto) 0.8 (0.1-1.2) X10*3/uL Eos # (Auto) 0.1 (0.0-0.4) X10*3/uL Baso # (Auto) 0.1 (0.0-0.2) X10*3/uL Abs Immat Gran (auto) 0.11 H (0.00-0.03) X10*3/uL Absolute Neuts (auto) 17.6 H (2.0-8.3) x10*3/uL Absolute Nucleated RBC 0.000 (0.0-0.012) X10*3/uL Nucleated RBC % (auto) 0.0 (0.0-0.2) /100WBC Smear Tech's Comments VERIFIED VBG pH (7.32-7.43) VBG pCO2 mmHg VBG pO2 mmHg VBG HCO3 (22-26) mmol/L VBG O2 Saturation % VBG Base Excess mmol/L Sodium 125 L (135-145) mmol/L Potassium 4.7 (3.3-5.1) mmol/L Chloride 92 L (96-108) mmol/L Carbon Dioxide 15 L (22-29) mmol/L Anion Gap 23 H (12-20) BUN 23 H (9-16) mg/dL Creatinine 1.04 (0.5-1.4) mg/dL Estim Creat Clear Calc 45.7 Estimated GFR 54 Random Glucose 105 (60-115) mg/dL Lactic Acid 2.2 H* (0.5-2.0) mmol/L Lactic Acid F/U @ 2Hr (0.5-2.0) mmol/L Lactic Acid F/U @ 4Hr (0.5-2.0) mmol/L Calcium 9.9 D (8.4-10.2) mg/dL Total Bilirubin 0.8 (0.0-1.0) mg/dL AST 40 H (5-31) U/L ALT 30 (0-31) U/L Alkaline Phosphatase 83 (39-117) U/L Total Creatine Kinase (26-140) U/L Total Protein 7.6 (6.5-8.0) g/dL Albumin 4.8 (3.5-5.0) g/dL Urine Color Dark Yellow Urine Appearance Clear Urine pH 5.5 (5.0-9.0) Ur Specific [place] 1.020 (1.005-1.025) Urine Protein 30 (1+) H (Neg-Trace) mg/dL Urine Glucose (UA) Negative (Negative) mg/dL Urine Ketones 40 (Negative) mg/dL Urine Blood Negative (Negative) Urine Nitrite Negative (Negative) Ur Leukocyte Esterase Small (1+) H (Negative) Urine RBC 0-2 (0-2) /HPF Urine WBC 0-5 (0-5) /HPF Ur Squamous Epith Cells 0-2 (0-2) /HPF Urine Bacteria None Seen (None Seen) Hyaline Casts >20 (0-2) /LPF Urine Opiates Screen Not Detected (Not Detect) Ur Buprenorphine Scrn Not Detected (Not Detect) ng/mL Ur Oxycodone Screen Not Detected (Not Detect) ng/mL Urine Methadone Screen Not Detected (Not Detect) ng/mL Urine Fentanyl Screen Not Detected (Not Detect) Ur Barbiturates Screen Not Detected (Not Detect) Ur Phencyclidine Scrn Not Detected (Not Detect) Ur Amphetamines Screen Not Detected (Not Detect) U Benzodiazepines Scrn Not Detected (Not Detect) Urine Cocaine Screen Not Detected (Not Detect) U Marijuana (THC) Screen Not Detected (Not Detect) Ethyl Alcohol < 10 mg/dL 01/06/25 01/06/25 01/06/25 Range/Units 12:58 14:32 17:40 WBC (4.8-10.8) X10*3/uL RBC (4.20-5.50) X10*6/uL Hgb (12.0-16.0) g/dl Hct (37.0-47.0) % MCV (80.0-98.0) fL MCH (27.0-33.0) pg MCHC (31.0-35.0) g/dl RDW (11.0-16.0) % Plt Count (160-400) X10*3/uL MPV (9.4-12.3) fL Immature Gran % (Auto) (0.0-0.4) % Neut % (Auto) (45-73) % Lymph % (Auto) (20-40) % [place] % (Auto) (2-11) % Eos % (Auto) (0-4) % Baso % (Auto) (0-2) % Lymph # (Auto) (1.2-4.9) X10*3/uL [place] # (Auto) (0.1-1.2) X10*3/uL Eos # (Auto) (0.0-0.4) X10*3/uL Baso # (Auto) (0.0-0.2) X10*3/uL Abs Immat Gran (auto) (0.00-0.03) X10*3/uL Absolute Neuts (auto) (2.0-8.3) x10*3/uL Absolute Nucleated RBC (0.0-0.012) X10*3/uL Nucleated RBC % (auto) (0.0-0.2) /100WBC Smear Tech's Comments VBG pH (7.32-7.43) VBG pCO2 mmHg VBG pO2 mmHg VBG HCO3 (22-26) mmol/L VBG O2 Saturation % VBG Base Excess mmol/L Sodium 126 L (135-145) mmol/L Potassium 4.8 (3.3-5.1) mmol/L Chloride 95 L (96-108) mmol/L Carbon Dioxide 17 L (22-29) mmol/L Anion Gap 19 (12-20) BUN 22 H (9-16) mg/dL Creatinine 0.83 (0.5-1.4) mg/dL Estim Creat Clear Calc 57.4 Estimated GFR > 60 Random Glucose 92 (60-115) mg/dL Lactic Acid 1.9 (0.5-2.0) mmol/L Lactic Acid F/U @ 2Hr 3.2 H* (0.5-2.0) mmol/L Lactic Acid F/U @ 4Hr 3.9 H* (0.5-2.0) mmol/L Calcium 8.8 D (8.4-10.2) mg/dL Total Bilirubin (0.0-1.0) mg/dL AST (5-31) U/L ALT (0-31) U/L Alkaline Phosphatase (39-117) U/L Total Creatine Kinase 398 H (26-140) U/L Total Protein (6.5-8.0) g/dL Albumin (3.5-5.0) g/dL Urine Color Urine Appearance Urine pH (5.0-9.0) Ur Specific [place] (1.005-1.025) Urine Protein (Neg-Trace) mg/dL Urine Glucose (UA) (Negative) mg/dL Urine Ketones (Negative) mg/dL Urine Blood (Negative) Urine Nitrite (Negative) Ur Leukocyte Esterase (Negative) Urine RBC (0-2) /HPF Urine WBC (0-5) /HPF Ur Squamous Epith Cells (0-2) /HPF Urine Bacteria (None Seen) Hyaline Casts (0-2) /LPF Urine Opiates Screen (Not Detect) Ur Buprenorphine Scrn (Not Detect) ng/mL Ur Oxycodone Screen (Not Detect) ng/mL Urine Methadone Screen (Not Detect) ng/mL Urine Fentanyl Screen (Not Detect) Ur Barbiturates Screen (Not Detect) Ur Phencyclidine Scrn (Not Detect) Ur Amphetamines Screen (Not Detect) U Benzodiazepines Scrn (Not Detect) Urine Cocaine Screen (Not Detect) U Marijuana (THC) Screen (Not Detect) Ethyl Alcohol mg/dL 01/06/25 01/06/25 01/06/25 Range/Units 17:49 17:55 22:47 WBC 10.3 (4.8-10.8) X10*3/uL RBC 3.23 L D (4.20-5.50) X10*6/uL Hgb 10.2 L D (12.0-16.0) g/dl Hct 27.7 L D (37.0-47.0) % MCV 85.8 (80.0-98.0) fL MCH 31.6 (27.0-33.0) pg MCHC 36.8 H (31.0-35.0) g/dl RDW 13.2 (11.0-16.0) % Plt Count 231 D (160-400) X10*3/uL MPV 9.0 L (9.4-12.3) fL Immature Gran % (Auto) 0.3 (0.0-0.4) % Neut % (Auto) 74.9 H (45-73) % Lymph % (Auto) 16.1 L (20-40) % [place] % (Auto) 8.2 (2-11) % Eos % (Auto) 0.3 (0-4) % Baso % (Auto) 0.2 (0-2) % Lymph # (Auto) 1.7 (1.2-4.9) X10*3/uL [place] # (Auto) 0.9 (0.1-1.2) X10*3/uL Eos # (Auto) 0.0 (0.0-0.4) X10*3/uL Baso # (Auto) 0.0 (0.0-0.2) X10*3/uL Abs Immat Gran (auto) 0.03 (0.00-0.03) X10*3/uL Absolute Neuts (auto) 7.8 (2.0-8.3) x10*3/uL Absolute Nucleated RBC 0.000 (0.0-0.012) X10*3/uL Nucleated RBC % (auto) 0.0 (0.0-0.2) /100WBC Smear Tech's Comments VBG pH 7.32 (7.32-7.43) VBG pCO2 36 mmHg VBG pO2 59 mmHg VBG HCO3 19 L (22-26) mmol/L VBG O2 Saturation 84.0 % VBG Base Excess -6.1 mmol/L Sodium 128 L 130 L (135-145) mmol/L Potassium 5.0 3.8 D (3.3-5.1) mmol/L Chloride 98 103 (96-108) mmol/L Carbon Dioxide 19 L 21 L (22-29) mmol/L Anion Gap 16 10 L (12-20) BUN 26 H 19 H (9-16) mg/dL Creatinine 1.01 0.66 (0.5-1.4) mg/dL Estim Creat Clear Calc 47.1 72.2 Estimated GFR 55 > 60 Random Glucose 132 H 97 (60-115) mg/dL Lactic Acid (0.5-2.0) mmol/L Lactic Acid F/U @ 2Hr (0.5-2.0) mmol/L Lactic Acid F/U @ 4Hr (0.5-2.0) mmol/L Calcium 8.6 8.1 L (8.4-10.2) mg/dL Total Bilirubin 0.3 0.3 (0.0-1.0) mg/dL AST 39 H 32 H (5-31) U/L ALT 28 20 (0-31) U/L Alkaline Phosphatase 66 55 (39-117) U/L Total Creatine Kinase (26-140) U/L Total Protein 6.3 L 5.1 L (6.5-8.0) g/dL Albumin 4.0 3.2 L (3.5-5.0) g/dL Urine Color Urine Appearance Urine pH (5.0-9.0) Ur Specific [place] (1.005-1.025) Urine Protein (Neg-Trace) mg/dL Urine Glucose (UA) (Negative) mg/dL Urine Ketones (Negative) mg/dL Urine Blood (Negative) Urine Nitrite (Negative) Ur Leukocyte Esterase (Negative) Urine RBC (0-2) /HPF Urine WBC (0-5) /HPF Ur Squamous Epith Cells (0-2) /HPF Urine Bacteria (None Seen) Hyaline Casts (0-2) /LPF Urine Opiates Screen (Not Detect) Ur Buprenorphine Scrn (Not Detect) ng/mL Ur Oxycodone Screen (Not Detect) ng/mL Urine Methadone Screen (Not Detect) ng/mL Urine Fentanyl Screen (Not Detect) Ur Barbiturates Screen (Not Detect) Ur Phencyclidine Scrn (Not Detect) Ur Amphetamines Screen (Not Detect) U Benzodiazepines Scrn (Not Detect) Urine Cocaine Screen (Not Detect) U Marijuana (THC) Screen (Not Detect) Ethyl Alcohol mg/dL 01/07/25 Range/Units 00:21 WBC (4.8-10.8) X10*3/uL RBC (4.20-5.50) X10*6/uL Hgb (12.0-16.0) g/dl Hct (37.0-47.0) % MCV (80.0-98.0) fL MCH (27.0-33.0) pg MCHC (31.0-35.0) g/dl RDW (11.0-16.0) % Plt Count (160-400) X10*3/uL MPV (9.4-12.3) fL Immature Gran % (Auto) (0.0-0.4) % Neut % (Auto) (45-73) % Lymph % (Auto) (20-40) % [place] % (Auto) (2-11) % Eos % (Auto) (0-4) % Baso % (Auto) (0-2) % Lymph # (Auto) (1.2-4.9) X10*3/uL [place] # (Auto) (0.1-1.2) X10*3/uL Eos # (Auto) (0.0-0.4) X10*3/uL Baso # (Auto) (0.0-0.2) X10*3/uL Abs Immat Gran (auto) (0.00-0.03) X10*3/uL Absolute Neuts (auto) (2.0-8.3) x10*3/uL Absolute Nucleated RBC (0.0-0.012) X10*3/uL Nucleated RBC % (auto) (0.0-0.2) /100WBC Smear Tech's Comments VBG pH (7.32-7.43) VBG pCO2 mmHg VBG pO2 mmHg VBG HCO3 (22-26) mmol/L VBG O2 Saturation % VBG Base Excess mmol/L Sodium (135-145) mmol/L Potassium (3.3-5.1) mmol/L Chloride (96-108) mmol/L Carbon Dioxide (22-29) mmol/L Anion Gap (12-20) BUN (9-16) mg/dL Creatinine (0.5-1.4) mg/dL Estim Creat Clear Calc Estimated GFR Random Glucose (60-115) mg/dL Lactic Acid 1.0 (0.5-2.0) mmol/L Lactic Acid F/U @ 2Hr (0.5-2.0) mmol/L Lactic Acid F/U @ 4Hr (0.5-2.0) mmol/L Calcium (8.4-10.2) mg/dL Total Bilirubin (0.0-1.0) mg/dL AST (5-31) U/L ALT (0-31) U/L Alkaline Phosphatase (39-117) U/L Total Creatine Kinase (26-140) U/L Total Protein (6.5-8.0) g/dL Albumin (3.5-5.0) g/dL Urine Color Urine Appearance Urine pH (5.0-9.0) Ur Specific [place] (1.005-1.025) Urine Protein (Neg-Trace) mg/dL Urine Glucose (UA) (Negative) mg/dL Urine Ketones (Negative) mg/dL Urine Blood (Negative) Urine Nitrite (Negative) Ur Leukocyte Esterase (Negative) Urine RBC (0-2) /HPF Urine WBC (0-5) /HPF Ur Squamous Epith Cells (0-2) /HPF Urine Bacteria (None Seen) Hyaline Casts (0-2) /LPF Urine Opiates Screen (Not Detect) Ur Buprenorphine Scrn (Not Detect) ng/mL Ur Oxycodone Screen (Not Detect) ng/mL Urine Methadone Screen (Not Detect) ng/mL Urine Fentanyl Screen (Not Detect) Ur Barbiturates Screen (Not Detect) Ur Phencyclidine Scrn (Not Detect) Ur Amphetamines Screen (Not Detect) U Benzodiazepines Scrn (Not Detect) Urine Cocaine Screen (Not Detect) U Marijuana (THC) Screen (Not Detect) Ethyl Alcohol mg/dL Critical Care Time Critical Care Time Critical Care Time: Yes Total Critical Care Time: 62 Attestation: Time is exclusive of separately billable procedures. Time includes: direct patient care, patient reassessment, coordination of patient care, interpretation of data (laboratory data, pulse oximetry, arterial blood gases and chest xrays), review of patient's medical records, medical consultation and documentation of patient care. Procedures excluded from critical care time: central intravenous line placement and electrocardiography. Discharge Plan Discharge Clinical Impression: Bipolar 1 disorder with moderate rj, Acute dehydration, Hyponatremia Patient Disposition: Admitted As Inpatient Interventions: [place]-Suicide Risk Severity Scale Last Done: 01/06/25 10:32
--- NOTE | 2025-01-06 10:47 | MHC.EDTECH ---
Patient unable to provide urine sample at this time.
[2025-01-06] MEDS: diazePAM 10 MG/2 ML CARTRIDGE 5 MG IM (10:55)
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
[2025-01-06 11:03] LABS: Hematocrit 39.9 % (37.0-47.0); Hemoglobin 14.3 g/dl (12.0-16.0); Imm Gran Abs Auto 0.11 X10*3/uL (0.00-0.03); Imm Gran Pct Auto 0.6 % (0.0-0.4); Lymphocytes Absolute Auto 0.9 X10*3/uL (1.2-4.9); MANUAL DIFF FLAG SCAN; Mean Corpuscular HGB Conc 35.8 g/dl (31.0-35.0); Mean Corpuscular Hemoglobin 31.3 pg (27.0-33.0); Mean Corpuscular Volume 87.3 fL (80.0-98.0); NRBC Abs Auto 0.000 X10*3/uL (0.0-0.012); NRBC Pct Auto 0.0 /100WBC (0.0-0.2); Platelet Count 385 X10*3/uL (160-400); Red Blood Count 4.57 X10*6/uL (4.20-5.50); SCAN SMEAR FLAG 1; White Blood Count 19.5 X10*3/uL (4.8-10.8)
[2025-01-06 11:22] LABS: Alanine Aminotransferase 30 U/L (0-31); Albumin Level 4.8 g/dL (3.5-5.0); Alkaline Phosphatase 83 U/L (39-117); Anion Gap 23 (12-20); Aspartate Amino Transferase 40 U/L (5-31); Blood Urea Nitrogen 23 mg/dL (9-16); Calcium 9.9 mg/dL (8.4-10.2); Carbon Dioxide 15 mmol/L (22-29); Chloride 92 mmol/L (96-108); Creatinine Clr Calc Pharmacy 45.7; Estimated Glomerular Filt Rate 54; Potassium 4.7 mmol/L (3.3-5.1); Sodium 125 mmol/L (135-145); Total Protein 7.6 g/dL (6.5-8.0)
--- NOTE | 2025-01-06 11:27 | PC.NURSE ---
Pts pressures 80/50s at this time, MD Naranjo made aware, pt moved out of pod to ED 12, verbal report given to CACHORRO Cano
[2025-01-06 12:08] LABS: Appearance Urine Clear; Glucose Urine UA Negative (Negative); PH 5.5 (5.0-9.0); Specific Gravity - Urine 1.020 (1.005-1.025); UMIC TRIGGER UACC YES
[2025-01-06 12:16] LABS: UACC Culture Trigger YES
[2025-01-06 12:22] LABS: Cannabinoid Screen Urine Not Detected (Not Detect)
--- OUTSIDE RECORDS SUMMARY | 2025-01-06 13:02 | XMS_ITS | Clinical Summary ---
Author Organization [facility] Address [address] [place] [address] Phone Care Team Providers Care Field Operations Technician Name Role Phone Suzanna Cervantes MD Primary Care Provider Allergies No known active allergies Medications benztropine (COGENTIN) 0.5 mg tablet Take 1 tablet (0.5 mg total) by mouth at bedtime. at bedtime 10/30/2024 Active carvediloL (COREG) 6.25 mg tablet Take 3 tablets (18.75 mg total) by mouth 2 (two) times a day. 11/01/2024 Active clonazePAM (KlonoPIN) 2 mg tablet Take 1 mg by mouth 2 (two) times a day. Active cloNIDine (CATAPRES) 0.1 mg tablet Take 1 tablet (0.1 mg total) by mouth 2 (two) times a day. 02/25/2024 Active lamoTRIgine (LaMICtal) 100 mg tablet Take 1 tablet (100 mg total) by mouth 1 (one) time each day. 10/29/2024 Active melatonin 10 mg capsule Take 1 capsule (10 mg total) by mouth at bedtime. at bedtime 10/18/2024 Active atorvastatin (LIPITOR) 40 mg tablet Take 1 tablet (40 mg total) by mouth at bedtime. 30 each 11/20/2024 Active multivitamin tablet Take 1 tablet by mouth 1 (one) time each day. 30 each 11/20/2024 Active aspirin 81 mg EC tablet Take 1 tablet (81 mg total) by mouth 1 (one) time each day. 30 each 11/20/2024 11/09/20 25 thiamine (VITAMIN B-1) 100 mg tablet Take 1 tablet (100 mg total) by mouth 1 (one) time each day. 30 tablet 11/20/2024 12/21/19 25 Active Problems Problem Noted Date Diagnosed Date Seizure ([facility] V24, [facility] V28) 11/18/2024 Encounters Date Type Department Care Team Description 11/18/2024 2:10 PM EDT - 11/20/2024 9:52 AM EDT Hospital Encounter [facility] [address] [place] [address] Cb Martinez MD Bukalo, Nermina, MD Bell, Alistair A, MD Aphasia (Primary Dx); Stroke-like symptoms; Seizure ([facility] V24, [facility] V28) Discharge Disposition: Home or Self Care from Last 3 Months Social History Tobacco Use Types Packs/Day Years Used Date Smoking Tobacco: Former Cigarettes 0 Q uit: 2004 Passive Smoke Exposure: Past [...] 01/14/2022 Depression Screening 02/12/2024 COVID-19 Vaccine ( season) 2024 11/12/2023, 12/10/2022, 01/11/2022, Additional history exists Influenza Vaccine (#1) 2024 , 12/10/2022, 11/05/2022, Additional history exists Hypertension/CHF/CAD Annual BMP Blood Test 11/20/2025 11/20/2024, 11/19/2024, 11/18/2024 DTaP,Tdap,and Td Vaccines (2 - Td or Tdap) 10/16/2028 10/16/2018 Cholesterol Screening (Lipid Panel) 11/18/2029 11/18/2024 Zoster Vaccines Completed 07/02/2022, 11/06/2021 RSV Immunization Adult Patients Completed 10/05/2022 HIB Vaccines Aged Out No longer eligi [...] LAB HEMETOLOGY METHOD 11/20/2024 9:17 AM EDT [facility] RBC 4.50 3.80 - 4.80 M/mcL LAB HEMETOLOGY METHOD 11/20/2024 9:17 AM [facility] Hemoglobin 13.4 11.5 - 16.0 g/dL LAB HEMETOLOGY METHOD 11/20/2024 9:17 AM [facility] Hematocrit 38.5 35.0 - 47.0 % LAB HEMETOLOGY METHOD 11/20/2024 9:17 AM [facility] MCV 86.1 79.0 - 98.0 FL LAB HEMETOLOGY METHOD 11/20/2024 9:17 AM T [facility] MCH 30.0 27.0 - 32.0 pcg LAB HEMETOLOGY METHOD 11/20/2024 9:17 AM [facility] MCHC 34.8 32.0 - 37.0 g/dL LAB HEMETOLOGY METHOD 11/20/2024 9:17 AM EDT [facility] RDW 12.3 11.0 - 15.0 % LAB HEMETOLOGY METHOD 11/20/2024 9:17 AM EDT [facility] Platelets 305 130 - 400 K/mcL LAB HEMETOLOGY METHOD 11/20/2024 9:17 AM EDT [facility] MPV 9.9 7.0 - 11.0 FL LAB HEMETOLOGY METHOD 11/20/2024 9:17 AM EDT [facility] NRBC 0.0 <1.0 % LAB HEMETOLOGY METHOD 11/20/2024 9:17 AM EDT [facility] NRBC Absolute 0.00 <0.10 K/mcL LAB HEMETOLOGY METHOD 11/20/2024 9:17 AM EDT [facility] Blood Venous blood specimen / Unknown Venipuncture / Unknown 11/20/2024 8:13 AM EDT 11/20/2024 9:01 AM EDT us Dhara Mcdermott HORSER UP LAB BLOOD ORDERABLES Final Resul t [facility] [address] [place] [address], [place] [phone] * Magnesium (11/20/2024 8:13 AM EDT) Magnesium 1.9 1.9 - 2.6 mg/dL LAB CHEMISTRY METHOD 11/20/2024 9:53 AM EDT [facility] Blood Venous blood specimen / Unknown Venipuncture / Unknown 11/20/2024 8:13 AM EDT 11/20/2024 9:01 AM EDT us Dhara Mcdermott HORSER UP LAB BLOOD ORDERABLES Final Resul t [facility] [address] [place] [address], * (ABNORMAL) Basic metabolic panel (11/20/2024 8:13 AM EDT) Only the most recent of2 resultswithin the time period is included. Sodium 138 133 - 145 mmol/L LAB CHEMISTRY METHOD 11/20/2024 9:53 AM [facility] Potassium 4.0 3.5 - 5.5 mmol/L LAB CHEMISTRY METHOD 11/20/2024 9:53 AM [facility] Chloride 102 96 - 110 mmol/L LAB CHEMISTRY METHOD 11/20/2024 9:53 AM [facility] CO2 25 21 - 32 mmol/L LAB CHEMISTRY METHOD 11/20/2024 9:53 AM [facility] Anion Gap 11 3 - 11 LAB CHEMISTRY METHOD 11/20/2024 9:53 AM [facility] Glucose 162(H) 70 - 100 mg/dL LAB CHEMISTRY METHOD 11/20/2024 9:53 AM [facility] BUN 9 5 - 25 mg/dL LAB CHEMISTRY METHOD 11/20/2024 9:53 AM [facility] Creatinine 0.61 0.50 - 1.10 mg/dL LAB CHEMISTRY METHOD 11/20/2024 9:53 AM [facility] eGFR 101 >=60 mL/min/1. 73m2 LAB CHEMISTRY METHOD 11/20/2024 9:53 AM [facility] Comment:Calculation based on the Chronic Kidney Disease Epidemiology Collaboration (CKD-EPI) equation refit without adjustment for race. BUN/Creatinine Ratio 14.8 LAB CHEMISTRY METHOD 11/20/2024 9:53 AM [facility] Calcium 9.3 8.5 - 10.5 mg/dL LAB CHEMISTRY METHOD 11/20/2024 9:53 AM [facility] Blood Venous blood specimen / Unknown Venipuncture / Unknown 11/20/2024 8:13 AM EDT 11/20/2024 9:01 AM EDT Dhara Mcdermott NP LAB BLOOD ORDERABLES Final Resul t Performing Organization Address [facility]/ZIP Co de Phone Number [facility] [address] [place] [address], [place] [phone] * ROUTINE EEG (11/19/2024 8:53 AM EDT) Narrative Moreno Reese MD - 11/19/2024 5:30 PM EDT Moreno Reese MD 11/19/2024 5:34 PM Routine EEG Date/Time: 11/19/2024 5:30 PM Performed by: Moreno Reese MD Authorized by: Dhara Mcdermott NP Dhara Mcdermott NP NEUROLOGY ORDERABLES Final Resul t * Thyroid stimulating hormone (11/19/2024 5:16 AM EDT) TSH 2.51 0.40 - 4.00 mcIU/mL LAB CHEMISTRY METHOD 11/19/2024 3:33 PM EDT [facility] Blood Venous blood specimen / Unknown Venipuncture / Unknown 11/19/2024 5:16 AM EDT 11/19/2024 6:19 AM EDT Dhara Mcdermott NP LAB BLOOD ORDERABLES Final Resul t [facility] [address] [place] [address], [place] [phone] * (ABNORMAL) Vitamin B12 (11/19/2024 5:16 AM EDT) Vitamin B-12 1,073(H) 250 - 900 pcg/mL LAB CHEMISTRY METHOD 11/19/2024 3:53 PM EDT [facility] Blood Venous blood specimen / Unknown Venipuncture / Unknown 11/19/2024 5:16 AM EDT 11/19/2024 6:19 AM EDT us Dhara Huntoscarjia HORSER UP LAB BLOOD ORDERABLES Final Resul t [facility] [address] [place] [address], [place] [phone] * MR Brain wo Contrast (11/18/2024 8:15 [...] - 15.0 ug/mL 11/23/2024 11:[address] [facility] Comment: Lamotrigine toxic level: >20 ug/mL The reference range is not well established. It may be as wide as 1 - 20 ug/mL. If applicable, any drug confirmation testing reported here was developed and the performance characteristics determined by [facility]. This confirmation testing has not been cleared or approved by the FDA. The laboratory is regulated under CLIA as qualified to perform high-complexity testing. This test is used for patient testing purposes. It should not be regarded as investigational or for research. Test performed at [facility], [address] , [place] [address] Melita Martins MD, PhD - Icer Machine Blood Venous blood specimen / Unknown Venipuncture / Unknown 11/18/2024 5:55 PM EDT 11/18/2024 6:11 PM EDT us Cb Martinez MD LAB BLOOD ORDERABLES Final Res ult [facility] [address] [place] [address] * (ABNORMAL) RHYTHM ECG, REPORT (11/18/2024 3:29 PM EDT) Narrative Cb Martinez MD - 11/18/2024 3:29 PM EDT Cb Martinez MD 11/19/2024 11:58 AM ECG Rhythm Interpretation and Report Date/Time: 11/18/2024 3:29 PM Performed by: Cb Martinez MD Authorized by: Cb Martinez MD ECG interpreted by ED Physician in the absence of a handle attacher: yes Interpretation: Interpretation: abnormal Details: Normal sinus rhythm with a ventricular rate of 85 bpm. Fusion complexes present and PACs. Normal DC, QRS, QTc, axis. QTc, axis. QRS slightly [...] GEMUSE QTc 449 ms GEMUSE P Wave [place] 56 degrees GEMUSE R [place] 19 degrees GEMUSE T [place] 108 degrees GEMUSE ECG Interpretation Sinus rhythm with Fusion complexes and Premature atrial complexes Incomplete left bundle branch block Abnormal ECG When compared with ECG of 25-OCT-2022 18:22, Incomplete left bundle branch block is present Confirmed by Otoniel COTTRELL, [facility] ([id number]) on 11/19/2024 7:56:42 AM GEMUSE 11/18/2024 3:03 PM EDT 11/19/2024 7:56 AM EDT Cb Martinez MD ECG ORDERABLES Final Result GEMUSE * Prothrombin time with INR (11/18/2024 2:58 PM EDT) Protime 12.6 10.6 - 13.9 sec LAB COAGULATION METHOD 11/18/2024 3:34 PM EDT [facility] INR 1.0 LAB COAGULATION METHOD 11/18/2024 3:34 PM EDT [facility] Blood Venous blood specimen / Unknown Venipuncture / Unknown 11/18/2024 2:58 PM EDT 11/18/2024 3:18 PM EDT Cb Martinez MD LAB BLOOD ORDERABLES Final Res ult [facility] [address] [place] [address], * CT Head Stroke wo Contrast (11/18/2024 [...] Signed Date: 11/18/2024 14:48 ET Workstation ID: [id number] Transcribed By: Self Edit Transcribed Date: 11/18/2024 [...] Signed Date: 11/18/2024 14:48 ET Workstation ID: [id number] Transcribed By: Self Edit Transcribed Date: 11/18/2024 14:46 ET Cb Martinez MD [facility] PROCEDURES Final Result * CT Angio [...] Signed Date: 11/18/2024 15:10 ET Workstation ID: [id number] Transcribed By: Self Edit Transcribed Date: 11/18/2024 15:04 ET Narrative 11/18/2024 3:10 PM EDT PROCEDURE: CTA HEAD AND NECK INDICATION: aphasia TECHNIQUE: CTA of the head and neck with intravenous contrast. Multiplanar reformats. The examination was performed utilizing dose reduction techniques.3-D or MIP images were produced with postprocessing on an independent computer workstation. 90cc Omnipaque 370 injected. Scan was analyzed using [facility] Contact AI based computer aided triage [...] is patent. Vertebrobasilar system is patent. Proximal training development manager are patent. Major dural venous sinuses opacify normally with contrast. Extracranial structures are unremarkable. Degenerative changes in the bones. Procedure Note Татьяна Obrien MD - 11/18/2024 PROCEDURE: CTA HEAD AND NECK INDICATION: aphasia TECHNIQUE: CTA of the head and neck with intravenous contrast. Multiplanarreformats. The examination was performed utilizing dose reductiontechniques.3-D or MIP images were produced with postprocessing on an[employer]ep[employer] Lunches computer workstation. 90cc Omnipaque 370 injected. Scan wasanalyzed using [employer] Contact AI based computer aided [...] is patent. Vertebrobasilar system is patent. Proximal training development manager are patent. Major dural venous sinuses opacify normally with contrast. Extracranial structures are unremarkable. Degenerative changes in thebones. IMPRESSION: No evidence of hemodynamically significant stenosis in the head or neck. -------- FINAL REPORT -------- Dictated By: Татьяна Obrien Dictated Date: 11/18/2024 15:04 ET Assigned Physician: Татьяна Obrien Reviewed and Electronically Signed By: Татьяна Obrien Signed Date: 11/18/2024 15:10 ET Workstation ID: [id number] Transcribed By: Self Edit Transcribed Date: 11/18/2024 15:04 ET Cb Martinez MD IMG CT PROCEDURES Final Result * Troponin I High Sensitivity (11/18/2024 2:33 PM EDT) [facility] High Sensitivity Troponin I 7 <=54 ng/L LAB CHEMISTRY METHOD 11/18/2024 3:40 PM EDT [facility] Blood Venous blood specimen / Unknown Venipuncture / Unknown 11/18/2024 2:33 PM EDT 11/18/2024 3:05 PM EDT Narrative [facility] - 11/18/2024 3:40 PM EDT High levels of biotin in samples may falsely decrease hsTroponin values. Use caution when interpreting hsTroponin results in patients taking biotin who exhibit renal impairment (eGFR <60) or in patients taking more than 20 mg/day of biotin. Cb Martinez MD LAB BLOOD ORDERABLES Final Res ult [facility] [address] [place] [address], [place] [phone] * (ABNORMAL) Lipid panel with reflex to direct LDL (11/18/2024 2:33 PM EDT) [facility] Cholesterol 229(H) 0 - 200 mg/dL LAB CHEMISTRY METHOD 11/18/2024 7:49 PM EDT [facility] Triglycerides 91 0 - 150 mg/dL LAB CHEMISTRY METHOD 11/18/2024 7:49 PM EDT [facility] HDL 68 >=40 mg/dL LAB CHEMISTRY METHOD 11/18/2024 7:49 PM EDT [facility] LDL Calculated 143(H) 0 - 100 mg/dL LAB CHEMISTRY METHOD 11/18/2024 7:49 PM EDT [facility] Comment:Estimated LDL Calcul ated using equation: Total cholesterol - HDL cholesterol - (Triglycerides/5) VLDL Cholesterol Trey 18.2 mg/dL LAB CHEMISTRY METHOD 11/18/2024 7:49 PM EDT [facility] Non HDL Chol. (LDL+VLDL) 161(H) <145 mg/dL LAB CHEMISTRY METHOD 11/18/2024 7:49 PM EDT [facility] Chol/HDL Ratio 3.4 0.0 - 4.4 LAB CHEMISTRY METHOD 11/18/2024 7:49 PM EDT [facility] Blood Venous blood specimen / Unknown Venipuncture / Unknown 11/18/2024 2:33 PM EDT 11/18/2024 3:05 PM EDT us Jose JOHNSON LAB BLOOD ORDERABLES Sun ellis Result [facility] [address] [place] [address], * CBC auto differential (11/18/2024 2:33 PM EDT) WBC 8.2 4.8 - 10.8 K/mcL LAB HEMETOLOGY METHOD 11/18/2024 3:22 PM EDT [facility] RBC 4.80 3.80 - 4.80 M/mcL LAB HEMETOLOGY METHOD 11/18/2024 3:22 PM EDT [facility] Hemoglobin 14.8 11.5 - 16.0 g/dL LAB HEMETOLOGY METHOD 11/18/2024 3:22 PM EDT [facility] Hematocrit 41.5 35.0 - 47.0 % LAB HEMETOLOGY METHOD 11/18/2024 3:22 PM EDT [facility] MCV 86.3 79.0 - 98.0 FL LAB HEMETOLOGY METHOD 11/18/2024 3:22 PM EDT [facility] MCH 30.8 27.0 - 32.0 pcg LAB HEMETOLOGY METHOD 11/18/2024 3:22 PM [facility] MCHC 35.7 32.0 - 37.0 g/dL LAB HEMETOLOGY METHOD 11/18/2024 3:22 PM [facility] RDW 11.9 11.0 - 15.0 % LAB HEMETOLOGY METHOD 11/18/2024 3:22 PM [facility] Platelets 355 130 - 400 K/mcL LAB HEMETOLOGY METHOD 11/18/2024 3:22 PM [facility] MPV 9.4 7.0 - 11.0 FL LAB HEMETOLOGY METHOD 11/18/2024 3:22 PM [facility] NRBC 0.0 <1.0 % LAB HEMETOLOGY METHOD 11/18/2024 3:22 PM [facility] NRBC Absolute 0.00 <0.10 K/mcL LAB HEMETOLOGY METHOD 11/18/2024 3:22 PM [facility] Neutrophils Relative 74.2 % LAB HEMETOLOGY METHOD 11/18/2024 3:22 PM [facility] Lymphocytes Relative 18.4 % LAB HEMETOLOGY METHOD 11/18/2024 3:22 PM [facility] Monocytes Relative 5.8 % LAB HEMETOLOGY METHOD 11/18/2024 3:22 PM [facility] Eosinophils Relative 0.6 % LAB HEMETOLOGY METHOD 11/18/2024 3:22 PM [facility] Basophils Relative 0.6 % LAB HEMETOLOGY METHOD 11/18/2024 3:22 PM [facility] Immature Granulocytes Relative 0.4 % LAB HEMETOLOGY METHOD 11/18/2024 3:22 PM [facility] Neutrophils Absolute 6.10 1.50 - 7.00 K/mcL LAB HEMETOLOGY METHOD 11/18/2024 3:22 PM EDT [facility] Lymphocytes Absolute 1.51 1.00 - 5.00 K/mcL LAB HEMETOLOGY METHOD 11/18/2024 3:22 PM EDT [facility] Monocytes Absolute 0.48 0.20 - 1.00 K/[facility] LAB HEMETOLOGY METHOD 11/18/2024 3:22 PM EDT [facility] Eosinophils Absolute 0.05 0.00 - 0.50 K/[facility] LAB HEMETOLOGY METHOD 11/18/2024 3:22 PM EDT [facility] Basophils Absolute 0.05 0.00 - 0.20 K/[facility] LAB HEMETOLOGY METHOD 11/18/2024 3:22 PM EDT [facility] Immature Granulocytes Absolute 0.03 0.00 - 0.03 K/[facility] LAB HEMETOLOGY METHOD 11/18/2024 3:22 PM EDT [facility] Blood Venous blood specimen / Unknown Venipuncture / Unknown 11/18/2024 2:33 PM EDT 11/18/2024 3:05 PM EDT us Cb Martinez MD LAB BLOOD ORDERABLES Final Res ult [facility] [address] [place] [address], * Hemoglobin A1c (11/18/2024 2:33 PM EDT) Hemoglobin A1C 5.2 <6.5 % LAB CHEMISTRY METHOD 11/18/2024 10:20 PM EDT [facility] Mean Bld Glu Estim. 103 mg/dL LAB CHEMISTRY METHOD 11/18/2024 10:20 PM EDT [facility] Blood Venous blood specimen / Unknown Venipuncture / Unknown 11/18/2024 2:33 PM EDT 11/18/2024 3:05 PM EDT us Jose JOHNSON LAB BLOOD ORDERABLES Sun l Result [facility] [address] [place] [address], [place] [phone] * Cardiac Enzymes - CPK (11/18/2024 2:33 PM EDT) [facility] Total CK 45 22 - 269 unit/L LAB CHEMISTRY METHOD 11/18/2024 3:38 PM EDT [facility] Blood Venous blood specimen / Unknown Venipuncture / Unknown 11/18/2024 2:33 PM EDT 11/18/2024 3:05 PM EDT Cb Martinez MD LAB BLOOD ORDERABLES Final Res ult Performing Organization Address City/[facility]/ZIP Co de Phone Number [facility] [address] [place] [address], [place] [phone] * (ABNORMAL) Comprehensive Metabolic Panel (CMP) (11/18/2024 2:33 PM EDT) [facility] Sodium 130(L) 133 - 145 mmol/L LAB CHEMISTRY METHOD 11/18/2024 3:37 PM EDT [facility] Potassium 4.1 3.5 - 5.5 mmol/L LAB CHEMISTRY METHOD 11/18/2024 3:37 PM EDT [facility] Chloride 97 96 - 110 mmol/L LAB CHEMISTRY METHOD 11/18/2024 3:37 PM EDT [facility] CO2 25 21 - 32 mmol/L LAB CHEMISTRY METHOD 11/18/2024 3:37 PM EDT [facility] Anion Gap 8 3 - 11 LAB CHEMISTRY METHOD 11/18/2024 3:37 PM EDT [facility] Glucose 118(H) 70 - 100 mg/dL LAB CHEMISTRY METHOD 11/18/2024 3:37 PM EDT [facility] BUN 16 5 - 25 mg/dL LAB CHEMISTRY METHOD 11/18/2024 3:37 PM [facility] Creatinine 0.67 0.50 - 1.10 mg/dL LAB CHEMISTRY METHOD 11/18/2024 3:37 PM [facility] eGFR 98 >=60 mL/min/1. 73m2 LAB CHEMISTRY METHOD 11/18/2024 3:37 PM [facility] Comment:Calculation based on the Chronic Kidney Disease Epidemiology Collaboration (CKD-EPI) equation refit without adjustment for race. BUN/Creatinine Ratio 23.9 LAB CHEMISTRY METHOD 11/18/2024 3:37 PM [facility] Calcium 9.7 8.5 - 10.5 mg/dL LAB CHEMISTRY METHOD 11/18/2024 3:37 PM [facility] AST (SGOT) 27 10 - 42 unit/L LAB CHEMISTRY METHOD 11/18/2024 3:37 PM [facility] ALT (SGPT) 41 10 - 60 unit/L LAB CHEMISTRY METHOD 11/18/2024 3:37 PM [facility] Alkaline Phosphatase 65 42 - 121 unit/L LAB CHEMISTRY METHOD 11/18/2024 3:37 PM [facility] Total Protein 7.5 6.0 - 8.0 g/dL LAB CHEMISTRY METHOD 11/18/2024 3:37 PM [facility] Albumin 4.0 3.2 - 5.0 g/dL LAB CHEMISTRY METHOD 11/18/2024 3:37 PM [facility] Total Bilirubin 0.6 0.0 - 1.4 mg/dL LAB CHEMISTRY METHOD 11/18/2024 3:37 PM [facility] Blood Venous blood specimen / Unknown Venipuncture / Unknown 11/18/2024 2:33 PM EDT 11/18/2024 3:05 PM EDT us Cb Martinez MD LAB BLOOD ORDERABLES Final Res ult [facility] [address] [place] [address], from Last 3 Months Insurance [employer] Member Subscriber Plan / Payer (Ef fective 2016-Present) Name:CARYN BAI Relation to Subscriber:Self Name:Caryn Bai Payer ID:[id number] Group ID:[id number] Type:Not on file Address: [place] [address] [address] [id number] Advance Directives * Full Code - Default [...] currently active code status orders. Care Teams Field Operations Technician Relationship Specialty Start Date End Date Suzanna Cervantes MD [address] [place] [address] PCP - General Internal Medicine 11/18/24
--- OUTSIDE RECORDS SUMMARY | 2025-01-06 13:02 | XMS_ITS | Clinical Summary ---
Author Organization [facility] Address [address] [address] Phone Care Team Providers Care Mat Linker Name Role Phone Jenniffer Cervantes MD Primary Care Provider [phone]- [phone] Allergies No known active allergies Medications thiamine [...] [facility] [address] [phone] Samuel Espinal MD [address] [phone] Health Maintenance Due Date Last Done Comments [...] this topic Insurance ([id number]) ([id number]) Care Teams Mat Linker Relationship Specialty Start Date End Date Jenniffer Cervantes MD PCP - General Internal Medicine 05/16/21
[2025-01-06 13:24] LABS: Anion Gap 19 (12-20); Blood Urea Nitrogen 22 mg/dL (9-16); Carbon Dioxide 17 mmol/L (22-29); Chloride 95 mmol/L (96-108); Creatinine Clr Calc Pharmacy 57.4; Estimated Glomerular Filt Rate > 60; Potassium 4.8 mmol/L (3.3-5.1); Sodium 126 mmol/L (135-145)
[2025-01-06 13:35] LABS: Calcium 8.8 mg/dL (8.4-10.2)
--- NOTE | 2025-01-06 13:51 | ECG_ITS ---
Test Reason : CLEARANCE Blood Pressure : */* mmHG Vent. Rate : 108 BPM Atrial Rate : 108 BPM P-R Int : 142 ms QRS Dur : 98 ms QT Int : 388 ms P-R-T Axes : * 25 98 degrees QTcB Int : 519 ms Sinus tachycardia Minimal voltage criteria for LVH, may be normal variant ( David product ) Anteroseptal infarct (cited on or before 25-Nov-2024) Abnormal ECG When compared with ECG of 07-Dec-2024 11:24, No significant changes seen Referred By: Ayush Naranjo Electronically Signed By: Bipin Pang
[2025-01-06 14:18] LABS: Reflex Lactate? Lactic Acid Added
[2025-01-06 14:57] LABS: ~Lactic Acid-LAB USE ONLY 3.2 mmol/L (0.5-2.0)
[2025-01-06 16:36] LABS: Reflex Lactate? 2 Y
--- NOTE | 2025-01-06 16:47 | MHC.EDTECH ---
Patient belongings moved to Racheal port shelf 2. One bag total on the far left side of the shelf.
[2025-01-06 17:58] LABS: VBG HCO3 19 mmol/L (22-26); VBG O2 % Saturation 84.0 %
[2025-01-06 18:10] LABS: ~Lactic Acid-LAB USE ONLY 3.9 mmol/L (0.5-2.0)
[2025-01-06 18:18] LABS: Venous Blood Gas Refer to POC result
--- NOTE | 2025-01-06 18:25 | PC.NURSE ---
Pt noted to be increasingly agitated, continuous talking, paranoid. Pt did throw applesauce at RN. Getting more agitated and interfering with medical equipment. Attempted PO meds and pt refused, became more angry. MD aware and ordered versed IVP. Pt now calm and resting, however, BP hypotensive, MD aware. Fluids infusing now.
[2025-01-06 18:29] LABS: Alanine Aminotransferase 28 U/L (0-31); Albumin Level 4.0 g/dL (3.5-5.0); Alkaline Phosphatase 66 U/L (39-117); Anion Gap 16 (12-20); Aspartate Amino Transferase 39 U/L (5-31); Blood Urea Nitrogen 26 mg/dL (9-16); Calcium 8.6 mg/dL (8.4-10.2); Carbon Dioxide 19 mmol/L (22-29); Chloride 98 mmol/L (96-108); Creatinine Clr Calc Pharmacy 47.1; Estimated Glomerular Filt Rate 55; Potassium 5.0 mmol/L (3.3-5.1); Sodium 128 mmol/L (135-145); Total Protein 6.3 g/dL (6.5-8.0)
[2025-01-06] MEDS: iohexoL 350 MG/ML 100 ML INFUS..BTL 85 ML IV (20:55)
--- NOTE | 2025-01-06 22:11 | PC.NURSE ---
pt sleeping, 1:1 sitter at bedside.
[2025-01-06 22:52] LABS: Hematocrit 27.7 % (37.0-47.0); Hemoglobin 10.2 g/dl (12.0-16.0); Imm Gran Abs Auto 0.03 X10*3/uL (0.00-0.03); Imm Gran Pct Auto 0.3 % (0.0-0.4); Lymphocytes Absolute Auto 1.7 X10*3/uL (1.2-4.9); MANUAL DIFF FLAG NO; Mean Corpuscular HGB Conc 36.8 g/dl (31.0-35.0); Mean Corpuscular Hemoglobin 31.6 pg (27.0-33.0); Mean Corpuscular Volume 85.8 fL (80.0-98.0); NRBC Abs Auto 0.000 X10*3/uL (0.0-0.012); NRBC Pct Auto 0.0 /100WBC (0.0-0.2); Platelet Count 231 X10*3/uL (160-400); Red Blood Count 3.23 X10*6/uL (4.20-5.50); White Blood Count 10.3 X10*3/uL (4.8-10.8)
[2025-01-06 23:09] LABS: Alanine Aminotransferase 20 U/L (0-31); Albumin Level 3.2 g/dL (3.5-5.0); Alkaline Phosphatase 55 U/L (39-117); Anion Gap 10 (12-20); Aspartate Amino Transferase 32 U/L (5-31); Blood Urea Nitrogen 19 mg/dL (9-16); Calcium 8.1 mg/dL (8.4-10.2); Carbon Dioxide 21 mmol/L (22-29); Chloride 103 mmol/L (96-108); Creatinine Clr Calc Pharmacy 72.2; Estimated Glomerular Filt Rate > 60; Potassium 3.8 mmol/L (3.3-5.1); Sodium 130 mmol/L (135-145); Total Protein 5.1 g/dL (6.5-8.0)
[2025-01-07] VITALS (12 sets, daily range): BP systolic 92–136; BP diastolic 51–80; PULSE 70–93; RESP 14–20; TEMP 36.6–37.1; O2SAT 94–99; BMI 22.8
--- NOTE | 2025-01-07 00:02 | MHC.EDTECH ---
Patient urinated on the bedpan, this rotary shear cutter provided tariq care to patient.
--- NOTE | 2025-01-07 02:16 | P.HPHOSP_ITS ---
History of Present Illness Date of Service: 01/07/25 Attending physician on admission: dEvin Meehan Chief Complaint: sepsis, hypotension, dehydration, lactic acidosis, hyponatremia Pt is a 64 yo female with PMH PTSD, Bipolar 1 disorder, anxiety, Insomnia, psychogenic nonepileptic seizures, Dyslipidemia, HTN, OA, fusion L4- S1, compression fractures L1, T9, T12, Leiomyoma, urinary incontinence was BIBA to ED into Psychiatry POD for evaluation after pt became agressive with her brother, whom she lives with to include [place] with evidence of rj. Pt states on admission that she stopped taking all of her psychiatric meds 2 days ago because the medication are not helping. Pt follows with [facility]. During the interim of pt being accepted for inpt admission to (Psych) on section 12, pt found to be hypotensive, tachycardic with LA 3.9 and leukocytosis. Work up ensued and pt met cirteria for sepsis and received 4 L of fluids and BP has slowly improved.MAPS now above 65. CK 398. Na 130. After fluids, LA now 1.0. Pt is awake and alert and cooperative but when pt starts talking about her brother, becomes slightly manic and states she is not going back there to live with him. CT chest and Chest xray negative for acute pulmonary findings. Atelectasis noted. Adding COVID, RSV and Flu testing. UA sent for culture but low threshold for UT based on UA. CT ABD PELVIS negative for acute cystitis. Pt found to have diverticulosis without diverticulitis. Cervix enlarged secondary to known fibroid. Head CT negative. ECG initially ST, Prolonged Qtc 519. Plan is to admit pt for sepsis (source unknown), hypotension, hyponatremia and eventual transfer to inpt psychiatric care with psychiatric consult pending. Review of Systems 2 Review of Systems: Pt denies chest pain, SOB at rest, abdominal pain, N/V, diarrhea but is reporting some burning with urination. [facility] Medical History PTSD (post-traumatic stress disorder) Labile hypertension Leiomyoma Bipolar I disorder Tinea unguium History of psychogenic nonepileptic seizure Impaired fasting glucose Dyslipidemia (high LDL; low HDL) Hx of suicide attempt On beta baldemar at home Arthritis Anxiety Diastasis recti Umbilical hernia Compression fracture of L1 lumbar vertebra Dupuytren's contracture of left hand Lumbar disc herniation Essential hypertension Ventral hernia Urinary incontinence Cognitive capacity: awake and alert to self and location only Functional capacity: independent ambulation Patient : No Family History Father Diabetes mellitus Mother COPD (chronic obstructive pulmonary disease) Sister Diabetes mellitus Glaucoma Other Mental health disorder Substance use disorder Surgical History H/O shoulder surgery Hx of elbow surgery Hx of repair of left rotator cuff Hx of colonoscopy History of lumbar fusion Social History Household Members: None Household Members Other:: brother Housing: Homeless Are you a primary childcare attendant to a significant other at home: No Do you presently have visiting nurse or other home services: No Unable to assess alcohol history related to: Refusing to respond Alcohol intake: current Alcohol intake frequency: holidays/special occasions only Patient Tobacco Use Status: Former Tobacco user Tobacco use type: Cigarette Cigarette Packs Per Day: 1 Cigarettes Per Day: 20.0 e-Cigarette/Vaping Use: Never Used Second Hand Smoke Exposure: No Substance Use Type: Marijuana Advance Directives: Yes Advance Directives on File: Yes Advance Directives Date on File: 11/26/22 Do you have a plan to hurt others: Vague Nutrition Risks: No Nutritional Risk Patient : No service: No Current occupational status: disabled Sexual orientation: Straight/Heterosexual Cognitive needs: No Hearing needs: No Vision needs: No Meds Allergies Allergy/AdvReac Type Severity Reaction Status Date / Time olanzapine AdvReac Severe visual Verified 01/06/25 10:30 changes carbamazepine (From Tegretol) AdvReac Intermediate Hyponatremi Verified 01/06/25 10:30 a divalproex sodium (From AdvReac Mild hyperammone Verified 01/06/25 10:30 Depakote) yoan gabapentin AdvReac Mild Unknown Verified 01/06/25 10:30 trazodone AdvReac Mild groggy Verified 01/06/25 10:30 Active Medications: Current Medications Acetaminophen (Acetaminophen 325 Mg Tablet) 650 mg PO Q6H PRN PRN Reason: Pain, Mild 1-3,fever,headache Albuterol/Ipratropium (Albuterol/Iprat 2.5/0.5mg 3 Ml Ampul.Neb) 3 ml INHALE Q4H PRN PRN Reason: Shortness of Breath/Wheezing Calcium Carbonate (Calcium Carbonate 750 Mg Tab.Chew) 750 mg PO Q4H PRN PRN Reason: Heartburn Albumin Human (Kedbumin 25 %) 50 mls @ 100 mls/hr IV ONCE ONE Stop: 01/07/25 02:35 Sodium Chloride (Ns) 1,000 mls @ 125 mls/hr IVCONT .Q8H ADAN Magnesium Hydroxide (Milk Of Magnesia 30 Ml Oral.Susp) 30 ml PO DAILY PRN PRN Reason: Constipation Melatonin (Melatonin 3 Mg Tablet) 6 mg PO BEDTIME PRN PRN Reason: Insomnia Ondansetron HCl (Ondansetron Hcl 4 Mg/2 Ml Vial) 4 mg IVPUSH Q8H PRN PRN Reason: Nausea and Vomiting Polyethylene Glycol (Polyethylene Glycol 3350 17 Gm Powd.Pack) 17 gm PO DAILY PRN PRN Reason: Constipation Senna (Sennosides 8.6 Mg Tablet) 17.2 mg PO BEDTIME ADAN Sodium Chloride (0.9 % Sodium Chloride Flush 3 Ml Syringe) 3 ml IVFLUSH QSHIFT [facility] Home Medications ?Medication ?Instructions ?Recorded ?Confirmed ?Last Taken ?Type atorvastatin 40 mg tablet 40 mg PO DAILY 11/25/2412/1311/26/24 08:49 History docusate sodium 100 mg capsule 100 mg PO DAILY PRN Con stipation 11/25/24 01/06/25 11/25/24 17:31 History benztropine 0.5 mg tablet 0.5 mg PO BEDTIME 01/06/25 1 03/08/24 Unknown History lamotrigine 25 mg tablet 125 mg PO DAILY 01/06/25 Unknown History lorazepam 0.5 mg tablet 0.75 mg PO TID 01/06/2512/13 Unknown History lurasidone 80 mg tablet 80 mg PO DAILY 01/06/2512/13 Unknown History Physical Exam 2 Vital Signs and Narrative: Vital Signs: Last Vital Signs Temp 98.6 F 01/06/25 22:34 Pulse 77 01/07/25 00:49 Resp 12 01/06/25 22:34 BP 94/57 L 01/07/25 01:16 Pulse Ox 96 01/06/25 22:34 O2 Del Method Room Air 01/06/25 22:34 BMI result Body Mass Index 23.9 Results Labs 01/06/25 22:47 01/06/25 22:47 Labs: Laboratory Results - last 24 hr 01/06/25 01/06/25 01/06/25 10:39 11:56 12:15 MCV 87.3 MCH 31.3 MCHC 35.8 H RDW 12.9 Plt Count 385 D MPV 9.1 L Immature Gran % (Auto) 0.6 H Neut % (Auto) 90.4 H Lymph % (Auto) 4.5 L [place] % (Auto) 3.9 Eos % (Auto) 0.3 Baso % (Auto) 0.3 Lymph # (Auto) 0.9 L [place] # (Auto) 0.8 Eos # (Auto) 0.1 Baso # (Auto) 0.1 Abs Immat Gran (auto) 0.11 H Absolute Neuts (auto) 17.6 H Absolute Nucleated RBC 0.000 Nucleated RBC % (auto) 0.0 Smear Tech's Comments VERIFIED VBG pH VBG pCO2 VBG pO2 VBG HCO3 VBG O2 Saturation VBG Base Excess Anion Gap 23 H Estim Creat Clear Calc 45.7 Estimated GFR 54 Random Glucose 105 Lactic Acid 2.2 H* Lactic Acid F/U @ 2Hr Lactic Acid F/U @ 4Hr Calcium 9.9 D Total Bilirubin 0.8 AST 40 H ALT 30 Alkaline Phosphatase 83 Total Creatine Kinase Total Protein 7.6 Albumin 4.8 Urine Color Dark Yellow Urine Appearance Clear Urine pH 5.[address] 1.020 Urine Protein 30 (1+) H Urine Glucose (UA) Negative Urine Ketones 40 Urine Blood Negative Urine Nitrite Negative Ur Leukocyte Esterase Small (1+) H Urine RBC 0-2 Urine WBC 0-5 Ur Squamous Epith Cells 0-2 Urine Bacteria None Seen Hyaline Casts >20 Urine Opiates Screen Not Detected Ur Buprenorphine Scrn Not Detected Ur Oxycodone Screen Not Detected Urine Methadone Screen Not Detected Urine Fentanyl Screen Not Detected Ur Barbiturates Screen Not Detected Ur Phencyclidine Scrn Not Detected Ur Amphetamines Screen Not Detected U Benzodiazepines Scrn Not Detected Urine Cocaine Screen Not Detected U Marijuana (THC) Screen Not Detected Ethyl Alcohol < 10 01/06/25 01/06/25 01/06/25 12:58 14:32 17:40 MCV MCH MCHC RDW Plt Count MPV Immature Gran % (Auto) Neut % (Auto) Lymph % (Auto) [place] % (Auto) Eos % (Auto) Baso % (Auto) Lymph # (Auto) [place] # (Auto) Eos # (Auto) Baso # (Auto) Abs Immat Gran (auto) Absolute Neuts (auto) Absolute Nucleated RBC Nucleated RBC % (auto) Smear Tech's Comments VBG pH VBG pCO2 VBG pO2 VBG HCO3 VBG O2 Saturation VBG Base Excess Anion Gap 19 Estim Creat Clear Calc 57.4 Estimated GFR > 60 Random Glucose 92 Lactic Acid 1.9 Lactic Acid F/U @ 2Hr 3.2 H* Lactic Acid F/U @ 4Hr 3.9 H* Calcium 8.8 D Total Bilirubin AST ALT Alkaline Phosphatase Total Creatine Kinase 398 H Total Protein Albumin Urine Color Urine Appearance Urine pH Ur Specific [place] Urine Protein Urine Glucose (UA) Urine Ketones Urine Blood Urine Nitrite Ur Leukocyte Esterase Urine RBC Urine WBC Ur Squamous Epith Cells Urine Bacteria Hyaline Casts Urine Opiates Screen Ur Buprenorphine Scrn Ur Oxycodone Screen Urine Methadone Screen Urine Fentanyl Screen Ur Barbiturates Screen Ur Phencyclidine Scrn Ur Amphetamines Screen U Benzodiazepines Scrn Urine Cocaine Screen U Marijuana (THC) Screen Ethyl Alcohol 01/06/25 01/06/25 01/06/25 17:49 17:55 22:47 MCV 85.8 MCH 31.6 MCHC 36.8 H RDW 13.2 Plt Count 231 D MPV 9.0 L Immature Gran % (Auto) 0.3 Neut % (Auto) 74.9 H Lymph % (Auto) 16.1 L [place] % (Auto) 8.2 Eos % (Auto) 0.3 Baso % (Auto) 0.2 Lymph # (Auto) 1.7 [place] # (Auto) 0.9 Eos # (Auto) 0.0 Baso # (Auto) 0.0 Abs Immat Gran (auto) 0.03 Absolute Neuts (auto) 7.8 Absolute Nucleated RBC 0.000 Nucleated RBC % (auto) 0.0 Smear Tech's Comments VBG pH 7.32 VBG pCO2 36 VBG pO2 59 VBG HCO3 19 L VBG O2 Saturation 84.0 VBG Base Excess -6.1 Anion Gap 16 10 L Estim Creat Clear Calc 47.1 72.2 Estimated GFR 55 > 60 Random Glucose 132 H 97 Lactic Acid Lactic Acid F/U @ 2Hr Lactic Acid F/U @ 4Hr Calcium 8.6 8.1 L Total Bilirubin 0.3 0.3 AST 39 H 32 H ALT 28 20 Alkaline Phosphatase 66 55 Total Creatine Kinase Total Protein 6.3 L 5.1 L Albumin 4.0 3.2 L Urine Color Urine Appearance Urine pH Ur Specific [place] Urine Protein Urine Glucose (UA) Urine Ketones Urine Blood Urine Nitrite Ur Leukocyte Esterase Urine RBC Urine WBC Ur Squamous Epith Cells Urine Bacteria Hyaline Casts Urine Opiates Screen Ur Buprenorphine Scrn Ur Oxycodone Screen Urine Methadone Screen Urine Fentanyl Screen Ur Barbiturates Screen Ur Phencyclidine Scrn Ur Amphetamines Screen U Benzodiazepines Scrn Urine Cocaine Screen U Marijuana (THC) Screen Ethyl Alcohol 01/07/25 00:21 MCV MCH MCHC RDW Plt Count MPV Immature Gran % (Auto) Neut % (Auto) Lymph % (Auto) [place] % (Auto) Eos % (Auto) Baso % (Auto) Lymph # (Auto) [place] # (Auto) Eos # (Auto) Baso # (Auto) Abs Immat Gran (auto) Absolute Neuts (auto) Absolute Nucleated RBC Nucleated RBC % (auto) Smear Tech's Comments VBG pH VBG pCO2 VBG pO2 VBG HCO3 VBG O2 Saturation VBG Base Excess Anion Gap Estim Creat Clear Calc Estimated GFR Random Glucose Lactic Acid 1.0 Lactic Acid F/U @ 2Hr Lactic Acid F/U @ 4Hr Calcium Total Bilirubin AST ALT Alkaline Phosphatase Total Creatine Kinase Total Protein Albumin Urine Color Urine Appearance Urine pH Ur Specific [place] [address] Urine Protein Urine Glucose (UA) Urine Ketones Urine Blood Urine Nitrite Ur Leukocyte Esterase Urine RBC Urine WBC Ur Squamous Epith Cells Urine Bacteria Hyaline Casts Urine Opiates Screen Ur Buprenorphine Scrn Ur Oxycodone Screen Urine Methadone Screen Urine Fentanyl Screen Ur Barbiturates Screen Ur Phencyclidine Scrn Ur Amphetamines Screen U Benzodiazepines Scrn Urine Cocaine Screen U Marijuana (THC) Screen Ethyl Alcohol Assessment and Plan (1) Sepsis: Qualifiers: Sepsis acute organ dysfunction status: unspecified Sepsis type: sepsis due to unspecified organism Qualified Code(s): A41.9 - Sepsis, unspecified organism Status: Acute (2) Acute dehydration: Status: Acute (3) Hyponatremia: Status: Acute (4) Acute lactic acidosis: Status: Acute Plan Pt is a 64 yo female with PMH PTSD, Bipolar 1 disorder, anxiety, Insomnia, psychogenic nonepileptic seizures, Dyslipidemia, HTN, OA, fusion L4- S1, compression fractures L1, T9, T12, Leiomyoma, urinary incontinence was BIBA to ED into Psychiatry POD for evaluation after pt became agressive with her brother, whom she lives with to include [place] with evidence of rj. Plan was for pt to be admitted to via psychiatry but pt found to be hypotensive with evidence of sepsis. Pt being admitted for sepsis (source not 100% clear), dehydration, hyponatremia and acute lactic acidosis with Rj/ [place] on section 12 and one to one. Sepsis/ Acute lactic acidosis/ Atelectasis Source not 100% clear as UA low suspicion for UTI, no acute cystitis on CT scan, CT chest neg for acute findings, CT ABD neg for infectious process, no diarrhea reported LA 3.9 to 1.0 Continue Ceftriaxone Continue IVF's BC X2 pending Urine Culture pendng IS ordered Anti-emetics, Antipyretics prn COVID, FLU and RSV pending Acute dehydration Continue IVF's Monitor BMP, I/Os Qshift Hyponatremia Likely SIADH noting pt has been on Lurasidone Nephrology consulted Urine studies and serum osmolarity requested Gradual correction in place, no more than 10 mEQ/L in 24 hours Mild Rhabdomyolosis/ CK 398 Contnue IVF's recheck CK in AM Renal fx stable Prolonged Qtc MG pending Repeat ECG in AM Telemetry Bipolar 1 disorder/ Rj/ [place]/ Section 12 Plan per psychiatry Pt is section 12 from [facility] [employer] Department Pt stopped taking her psychiatric meds 2 days prior 1:[address] DVT Prophylaxis: lovenox MED REC PENDING FULL CODE STATUS Pt will requires at least a 2 midnight stay to complete IV ABX, and further sepsis work up with expert consultation with Psychiatry and Nephrology. Quality Stroke Does the patient have a stroke diagnosis?: No Reason for No Anti-thrombotic by Day Two: N/A - Med Ordered VTE Prior VTE?: No VTE Risk Level:: Medical - moderate - high VTE Device Contraindication: N/A - Device Ordered VTE Drug Contraindication: N/A - Med Ordered
[2025-01-07] MEDS: Albumin Human 25 % 50 ML 100 ML IV (02:28)
[2025-01-07 04:33] LABS: Resp Syncy Virus RNA Qual PCR NEGATIVE (Negative); SARS COV2 PCR INHOUSE NEGATIVE (Negative)
[2025-01-07 04:40] LABS: MANUAL DIFF FLAG NO
[2025-01-07 04:41] LABS: Hematocrit 27.3 % (37.0-47.0); Hemoglobin 9.9 g/dl (12.0-16.0); Imm Gran Abs Auto 0.03 X10*3/uL (0.00-0.03); Imm Gran Pct Auto 0.4 % (0.0-0.4); Lymphocytes Absolute Auto 1.0 X10*3/uL (1.2-4.9); Mean Corpuscular HGB Conc 36.3 g/dl (31.0-35.0); Mean Corpuscular Hemoglobin 31.5 pg (27.0-33.0); Mean Corpuscular Volume 86.9 fL (80.0-98.0); NRBC Abs Auto 0.000 X10*3/uL (0.0-0.012); NRBC Pct Auto 0.0 /100WBC (0.0-0.2); Platelet Count 212 X10*3/uL (160-400); Red Blood Count 3.14 X10*6/uL (4.20-5.50); White Blood Count 7.4 X10*3/uL (4.8-10.8)
[2025-01-07 04:48] LABS: Osmolality, Serum 276 mosm/kg (281-305)
[2025-01-07 05:01] LABS: Alanine Aminotransferase 20 U/L (0-31); Albumin Level 3.5 g/dL (3.5-5.0); Alkaline Phosphatase 51 U/L (39-117); Anion Gap 10 (12-20); Aspartate Amino Transferase 34 U/L (5-31); Blood Urea Nitrogen 15 mg/dL (9-16); Calcium 8.3 mg/dL (8.4-10.2); Carbon Dioxide 20 mmol/L (22-29); Chloride 106 mmol/L (96-108); Creatinine Clr Calc Pharmacy 78.0; Estimated Glomerular Filt Rate > 60; Magnesium 1.9 mg/dL (1.6-2.6); Potassium 4.0 mmol/L (3.3-5.1); Sodium 132 mmol/L (135-145); Total Protein 5.3 g/dL (6.5-8.0)
--- NOTE | 2025-01-07 07:26 | P.PNIM_ITS ---
Subjective Subjective Date of Service: 01/07/25 Interval History: Has acute urinary retention Hoarse voice Review of Systems Review of Systems: Yes all other systems are reviewed and are negative Physical Exam 2 Exam: Exam: General: AOx3, has pressured speech , speaks in hushed low tones Resp: CTA bilaterally CVS: S1, S2, RRR GI: +BS, NT, no distention Psych: tangential , pressured speech Vital Signs: Vital Signs: Last Vital Signs Temp 98.3 F 01/07/25 07:21 Pulse 87 01/07/25 07:21 Resp 15 01/07/25 07:21 BP 130/62 01/07/25 07:21 Pulse Ox 97 01/07/25 07:21 O2 Del Method Room Air 01/07/25 07:21 BMI result Body Mass Index 23.9 Objective Data Active Medications Acetaminophen (Acetaminophen 325 Mg Tablet) 650 mg PO Q6H PRN PRN Reason: Pain, Mild 1-3,fever,headache Albuterol/Ipratropium (Albuterol/Iprat 2.5/0.5mg 3 Ml Ampul.Neb) 3 ml INHALE Q4H PRN PRN Reason: Shortness of Breath/Wheezing Calcium Carbonate (Calcium Carbonate 750 Mg Tab.Chew) 750 mg PO Q4H PRN PRN Reason: Heartburn Enoxaparin Sodium (Enoxaparin Sodium 40 Mg/0.4 Ml Syringe) 40 mg SUBCUT Q24H [facility] Sodium Chloride (Ns) 1,000 mls @ 125 mls/hr IVCONT .Q8H [facility] Last Admin: 01/07/25 02:28 Dose: 125 mls/hr Documented By: LEE Ceftriaxone Sodium 2 gm/ (Sodium Chloride) 50 mls @ 100 mls/hr IV Q24H [facility] Magnesium Hydroxide (Milk Of Magnesia 30 Ml Oral.Susp) 30 ml PO DAILY PRN PRN Reason: Constipation Melatonin (Melatonin 3 Mg Tablet) 6 mg PO BEDTIME PRN PRN Reason: Insomnia Ondansetron HCl (Ondansetron Hcl 4 Mg/2 Ml Vial) 4 mg IVPUSH Q8H PRN PRN Reason: Nausea and Vomiting Polyethylene Glycol (Polyethylene Glycol 3350 17 Gm Powd.Pack) 17 gm PO DAILY PRN PRN Reason: Constipation Senna (Sennosides 8.6 Mg Tablet) 17.2 mg PO BEDTIME [facility] Sodium Chloride (0.9 % Sodium Chloride Flush 3 Ml Syringe) 3 ml IVFLUSH QSHIFT [facility] Labs 01/07/25 04:28 01/07/25 04:28 Labs: Laboratory Results - last 24 hr 01/06/25 01/06/25 01/06/25 10:39 11:56 12:15 MCV 87.3 MCH 31.3 MCHC 35.8 H RDW 12.9 Plt Count 385 D MPV 9.1 L Immature Gran % (Auto) 0.6 H Neut % (Auto) 90.4 H Lymph % (Auto) 4.5 L [place] % (Auto) 3.9 Eos % (Auto) 0.3 Baso % (Auto) 0.3 Lymph # (Auto) 0.9 L [place] # (Auto) 0.8 Eos # (Auto) 0.1 Baso # (Auto) 0.1 Abs Immat Gran (auto) 0.11 H Absolute Neuts (auto) 17.6 H Absolute Nucleated RBC 0.000 Nucleated RBC % (auto) 0.0 Smear Tech's Comments VERIFIED VBG pH VBG pCO2 VBG pO2 VBG HCO3 VBG O2 Saturation VBG Base Excess Anion Gap 23 H Estim Creat Clear Calc 45.7 Estimated GFR 54 Random Glucose 105 Osmolality Lactic Acid 2.2 H* Lactic Acid F/U @ 2Hr Lactic Acid F/U @ 4Hr Calcium 9.9 D Magnesium Total Bilirubin 0.8 AST 40 H ALT 30 Alkaline Phosphatase 83 Total Creatine Kinase Total Protein 7.6 Albumin 4.8 TSH Urine Color Dark Yellow Urine Appearance Clear Urine pH 5.5 Ur Specific [place] 1.020 Urine Protein 30 (1+) H Urine Glucose (UA) Negative Urine Ketones 40 Urine Blood Negative Urine Nitrite Negative Ur Leukocyte Esterase Small (1+) H Urine RBC 0-2 Urine WBC 0-5 Ur Squamous Epith Cells 0-2 Urine Bacteria None Seen Hyaline Casts >20 Urine Opiates Screen Not Detected Ur Buprenorphine Scrn Not Detected Ur Oxycodone Screen Not Detected Urine Methadone Screen Not Detected Urine Fentanyl Screen Not Detected Ur Barbiturates Screen Not Detected Ur Phencyclidine Scrn Not Detected Ur Amphetamines Screen Not Detected U Benzodiazepines Scrn Not Detected Urine Cocaine Screen Not Detected U Marijuana (THC) Screen Not Detected Ethyl Alcohol < 10 Influenza Type A (PCR) Influenza Type B (PCR) RSV RNA Qual (PCR) SARS-CoV-2 RNA (RT-PCR) 01/06/25 01/06/25 01/06/25 12:58 14:32 17:40 MCV MCH MCHC RDW Plt Count MPV Immature Gran % (Auto) Neut % (Auto) Lymph % (Auto) [place] % (Auto) Eos % (Auto) Baso % (Auto) Lymph # (Auto) [place] # (Auto) Eos # (Auto) Baso # (Auto) Abs Immat Gran (auto) Absolute Neuts (auto) Absolute Nucleated RBC Nucleated RBC % (auto) Smear Tech's Comments VBG pH VBG pCO2 VBG pO2 VBG HCO3 VBG O2 Saturation VBG Base Excess Anion Gap 19 Estim Creat Clear Calc 57.4 Estimated GFR > 60 Random Glucose 92 Osmolality Lactic Acid 1.9 Lactic Acid F/U @ 2Hr 3.2 H* Lactic Acid F/U @ 4Hr 3.9 H* Calcium 8.8 D Magnesium Total Bilirubin AST ALT Alkaline Phosphatase Total Creatine Kinase 398 H Total Protein Albumin TSH Urine Color Urine Appearance Urine pH Ur Specific [place] Urine Protein Urine Glucose (UA) Urine Ketones Urine Blood Urine Nitrite Ur Leukocyte Esterase Urine RBC Urine WBC Ur Squamous Epith Cells Urine Bacteria Hyaline Casts Urine Opiates Screen Ur Buprenorphine Scrn Ur Oxycodone Screen Urine Methadone Screen Urine Fentanyl Screen Ur Barbiturates Screen Ur Phencyclidine Scrn Ur Amphetamines Screen U Benzodiazepines Scrn Urine Cocaine Screen U Marijuana (THC) Screen Ethyl Alcohol Influenza Type A (PCR) Influenza Type B (PCR) RSV RNA Qual (PCR) SARS-CoV-2 RNA (RT-PCR) 01/06/25 01/06/25 01/06/25 17:49 17:55 22:47 MCV 85.8 MCH 31.6 MCHC 36.8 H RDW 13.2 Plt Count 231 D MPV 9.0 L Immature Gran % (Auto) 0.3 Neut % (Auto) 74.9 H Lymph % (Auto) 16.1 L [place] % (Auto) 8.2 Eos % (Auto) 0.3 Baso % (Auto) 0.2 Lymph # (Auto) 1.7 [place] # (Auto) 0.9 Eos # (Auto) 0.0 Baso # (Auto) 0.0 Abs Immat Gran (auto) 0.03 Absolute Neuts (auto) 7.8 Absolute Nucleated RBC 0.000 Nucleated RBC % (auto) 0.0 Smear Tech's Comments VBG pH 7.32 VBG pCO2 36 VBG pO2 59 VBG HCO3 19 L VBG O2 Saturation 84.0 VBG Base Excess -6.1 Anion Gap 16 10 L Estim Creat Clear Calc 47.1 72.2 Estimated GFR 55 > 60 Random Glucose 132 H 97 Osmolality Lactic Acid Lactic Acid F/U @ 2Hr Lactic Acid F/U @ 4Hr Calcium 8.6 8.1 L Magnesium Total Bilirubin 0.3 0.3 AST 39 H 32 H ALT 28 20 Alkaline Phosphatase 66 55 Total Creatine Kinase Total Protein 6.3 L 5.1 L Albumin 4.0 3.2 L TSH Urine Color Urine Appearance Urine pH Ur Specific [place] Urine Protein Urine Glucose (UA) Urine Ketones Urine Blood Urine Nitrite Ur Leukocyte Esterase Urine RBC Urine WBC Ur Squamous Epith Cells Urine Bacteria Hyaline Casts Urine Opiates Screen Ur Buprenorphine Scrn Ur Oxycodone Screen Urine Methadone Screen Urine Fentanyl Screen Ur Barbiturates Screen Ur Phencyclidine Scrn Ur Amphetamines Screen U Benzodiazepines Scrn Urine Cocaine Screen U Marijuana (THC) Screen Ethyl Alcohol Influenza Type A (PCR) Influenza Type B (PCR) RSV RNA Qual (PCR) SARS-CoV-2 RNA (RT-PCR) 01/07/25 01/07/25 01/07/25 00:21 03:09 04:28 MCV 86.9 MCH 31.5 MCHC 36.3 H RDW 13.4 Plt Count 212 MPV 9.1 L Immature Gran % (Auto) 0.4 Neut % (Auto) 74.3 H Lymph % (Auto) 14.0 L [place] % (Auto) 9.5 Eos % (Auto) 1.5 Baso % (Auto) 0.3 Lymph # (Auto) 1.0 L [place] # (Auto) 0.7 Eos # (Auto) 0.1 Baso # (Auto) 0.0 Abs Immat Gran (auto) 0.03 Absolute Neuts (auto) 5.5 Absolute Nucleated RBC 0.000 Nucleated RBC % (auto) 0.0 Smear Tech's Comments VBG pH VBG pCO2 VBG pO2 VBG HCO3 VBG O2 Saturation VBG Base Excess Anion Gap 10 L Estim Creat Clear Calc 78.0 Estimated GFR > 60 Random Glucose 114 Osmolality 276 L Lactic Acid 1.0 Lactic Acid F/U @ 2Hr Lactic Acid F/U @ 4Hr Calcium 8.3 L Magnesium 1.9 Total Bilirubin 0.6 AST 34 H ALT 20 Alkaline Phosphatase 51 Total Creatine Kinase 245 H Total Protein 5.3 L Albumin 3.5 TSH 1.09 Urine Color Urine Appearance Urine pH Ur Specific [place] Urine Protein Urine Glucose (UA) Urine Ketones Urine Blood Urine Nitrite Ur Leukocyte Esterase Urine RBC Urine WBC Ur Squamous Epith Cells Urine Bacteria Hyaline Casts Urine Opiates Screen Ur Buprenorphine Scrn Ur Oxycodone Screen Urine Methadone Screen Urine Fentanyl Screen Ur Barbiturates Screen Ur Phencyclidine Scrn Ur Amphetamines Screen U Benzodiazepines Scrn Urine Cocaine Screen U Marijuana (THC) Screen Ethyl Alcohol Influenza Type A (PCR) NEGATIVE Influenza Type B (PCR) NEGATIVE RSV RNA Qual (PCR) NEGATIVE SARS-CoV-2 RNA (RT-PCR) NEGATIVE Assessment and Plan (1) Hyponatremia: Status: Resolved Plan 64 yo female with PMH PTSD, Bipolar 1 disorder, anxiety, Insomnia, psychogenic nonepileptic seizures, Dyslipidemia, HTN, OA, fusion L4-S1, compression fractures L1, T9, T12, Leiomyoma, urinary incontinence was BIBA to ED into Psychiatry POD for evaluation after pt became agressive with her brother, whom she lives with to include HI with evidence of rj, was admitted to medicine as she became hypotensive with elevated lactic acid and hyponatremia and sepsis workup initiated in his currently being worked Sepsis of unclear etiology Follow sepsis workup thus far it has been unremarkable Lactic acid can be explained from agitation, CPK elevated Patient had psychiatric manic episode after stopping her meds 2 days prior to admission Until sepsis has been completely ruled out, continue ceftriaxone Hypotension Resolved Acute urinary retention Unclear etiology Failed straight cath x2 Continues to retain Ferreira for now Urology consult PTSD Bipolar Insomnia, anxiety Psychogenic nonepileptic seizures Manic episode Active homicidal ideation towards brother Continue home meds Psych consult Care consult Hyponatremia Likely secondary to psychiatric versus SIADH We will check urine lytes Rhabdomyolysis Likely secondary to manic episode Continue fluids no need to trend Prolonged QTC improved post magnesium and fluids Recheck once more today Bipolar 1 disorder/ Rj/ HI/ Section 12 Plan per psychiatry yet to see the patient Pt is section 12 from [facility] [employer] Pt stopped taking her psychiatric meds 2 days prior to admission 1:[address] DVT Prophylaxis: lovenox Code status full code Patient needs continued hospitalization to rule out sepsis, needs to be transferred to [facility] after medical management Quality Stroke Does the patient have a stroke diagnosis?: No Reason for No Anti-thrombotic by Day Two: N/A - Med Ordered VTE Prior VTE?: No VTE Risk Level:: Medical - moderate - high VTE Device Contraindication: N/A - Device Ordered VTE Drug Contraindication: N/A - Med Ordered
--- NOTE | 2025-01-07 12:01 | PHA.MEDREC ---
Pharmacy Consult ? Medication Reconciliation Pharmacy has reviewed the medication reconciliation done by nursing and also spoke to patient to confirm medication list. Per patient, she monitors her blood pressure every day and takes carvedilol 6.25 mg to 18.75 mg bid depends on her blood pressure. She also said she doesn't take lorazepam due to dizziness.
--- NOTE | 2025-01-07 12:06 | PC.NURSE ---
Addendum entered by Shira Sandra RN 01/07/25 18:27: At 1600 pt complaining of bladder pressure; Bladder Scanned pt for 932mLs; MD made aware; Ferreira cath placed per MD's order. Ferreira cath draining clear, yellow urine; Pt tolerated well; Plan of care ongoing. Addendum entered by Shira Sandra RN 01/07/25 13:11: At 1300 pt reports a feeling of discomfort and bladder pressure; bladder scanned pt for 463mL. MD aware; str.cath done and removed 800mLs. Pt toleraed well; Pt due to void at 1900; safey and fall precautions maintained and plan of care ongoing. Original Note: At 1020, pt able to urinate but still reporting pressure after voiding; Bladder scanned pt for 759mLs. Str.cath done and removed 950mLs. Pt toleraed well; Pt due to void at 1620; safey and fall precautions maintained and plan of care ongoing.
--- NOTE | 2025-01-07 12:47 | MHC.CM.PN ---
IMM 01/07/25, Pt. came from [facility] unit, she lives with her brother, but said she does not want to go back there. She has nurse services from [facility] MWF for med management. HCP is her brother Diogo, copy is on file. PCP is Suzanna Cervantes. Care Team to assist with disposition. CM to follow for DC needs.
[2025-01-07] MEDS: Aspirin Enteric Coated 81 MG TABLET.DR PO (17:02)
--- NOTE | 2025-01-07 17:35 | ECG_ITS ---
Test Reason : QTC Blood Pressure : */* mmHG Vent. Rate : 81 BPM Atrial Rate : 81 BPM P-R Int : 140 ms QRS Dur : 110 ms QT Int : 388 ms P-R-T Axes : 47 9 112 degrees QTcB Int : 450 ms Normal sinus rhythm Minimal voltage criteria for LVH, may be normal variant ( [place] product ) Anteroseptal infarct (cited on or before 25-Nov-2024) Abnormal ECG When compared with ECG of 06-Jan-2025 14:08, QT has shortened Referred By: Emma Lopez Electronically Signed By: Bipin Pang
[2025-01-08 03:08] VITALS: BP 143/67; PULSE 78; RESP 18; TEMP 37; O2SAT 97
[2025-01-08 08:00] VITALS: BP 152/81; PULSE 84; RESP 16; TEMP 36.6; O2SAT 99
--- NOTE | 2025-01-08 09:06 | HO.PM.IMPN ---
Subjective Subjective Date of Service: 01/08/25 Interval History: no acute overnight events Ecoli UTI C/S back and we are switching her to Augmentin. Physical Exam Vital Signs: Vital Signs: Last Vital Signs Temp 97.9 F 01/08/25 08:00 Pulse 84 01/08/25 08:00 Resp 16 01/08/25 08:00 BP 152/81 H 01/08/25 08:00 Pulse Ox 99 01/08/25 08:00 O2 Del Method Room Air 01/08/25 08:00 BMI result Body Mass Index 22.8 Objective Data Active Medications Acetaminophen (Acetaminophen 325 Mg Tablet) 650 mg PO Q6H PRN PRN Reason: Pain, Mild 1-3,fever,headache Albuterol/Ipratropium (Albuterol/Iprat 2.5/0.5mg 3 Ml Ampul.Neb) 3 ml INHALE Q4H PRN PRN Reason: Shortness of Breath/Wheezing Aspirin (Aspirin Enteric Coated 81 Mg Tablet.) 81 mg PO DAILY [facility] Last Admin: 01/07/25 17:02 Dose: 81 mg Documented By: WAYNE Atorvastatin Calcium (Atorvastatin Calcium 40 Mg Tablet) 40 mg PO DAILY [facility] Last Admin: 01/07/25 09:36 Dose: 40 mg Documented By: WAYNE Benztropine Mesylate (Benztropine Mesylate 0.5 Mg Tablet) 0.5 mg PO BEDTIME [facility] Last Admin: 01/07/25 20:30 Dose: 0.5 mg Documented By: SREEDHAR Calcium Carbonate (Calcium Carbonate 750 Mg Tab.Chew) 750 mg PO Q4H PRN PRN Reason: Heartburn Carvedilol (Carvedilol 6.25 Mg Tablet) 6.25 - 18.75 mg PO BID PRN; Protocol PRN Reason: HYPERTENSION Clonidine HCl (Clonidine Hcl 0.1 Mg Tablet) 0.1 mg PO BID PRN; Protocol PRN Reason: Anxiety Docusate Sodium (Docusate Sodium 100 Mg Capsule) 100 mg PO DAILY PRN PRN Reason: Constipation Last Admin: 01/07/25 17:06 Dose: 100 mg Documented By: WAYNE Enoxaparin Sodium (Enoxaparin Sodium 40 Mg/0.4 Ml Syringe) 40 mg SUBCUT Q24H [facility] Last Admin: 01/07/25 09:36 Dose: 40 mg Documented By: WAYNE Folic Acid (Folic Acid 1 Mg Tablet) 1 mg PO DAILY [facility] Last Admin: 01/07/25 09:36 Dose: 1 mg Documented By: WAYNE Sodium Chloride (Ns) 1,000 mls @ 125 mls/hr IVCONT .Q8H [facility] On Hold: 01/08/25 08:55 Last Admin: 01/08/25 03:32 Dose: 125 mls/hr Documented By: SREEDHAR Lamotrigine (Lamotrigine 100 Mg Tablet) 150 mg PO DAILY [facility] Last Admin: 01/07/25 12:16 Dose: Not Given Documented By: WAYNE Non-Admin Reason: Patient Refused Lurasidone HCl (Lurasidone Hcl 80 Mg Tablet) 80 mg PO DAILY [facility] Last Admin: 01/07/25 09:40 Dose: Not Given Documented By: WAYNE Non-Admin Reason: Patient Refused Magnesium Hydroxide (Milk Of Magnesia 30 Ml Oral.Susp) 30 ml PO DAILY PRN PRN Reason: Constipation Melatonin (Melatonin 3 Mg Tablet) 6 mg PO BEDTIME PRN PRN Reason: Insomnia Last Admin: 01/07/25 23:45 Dose: 6 mg Documented By: SREEDHAR Ondansetron HCl (Ondansetron Hcl 4 Mg/2 Ml Vial) 4 mg IVPUSH Q8H PRN PRN Reason: Nausea and Vomiting Polyethylene Glycol (Polyethylene Glycol 3350 17 Gm Powd.Pack) 17 gm PO DAILY PRN PRN Reason: Constipation Senna (Sennosides 8.6 Mg Tablet) 17.2 mg PO BEDTIME [facility] Last Admin: 01/07/25 20:30 Dose: 17.2 mg Documented By: SREEDHAR Sodium Chloride (0.9 % Sodium Chloride Flush 3 Ml Syringe) 3 ml IVFLUSH QSHIFT [facility] Last Admin: 01/07/25 20:31 Dose: Not Given Documented By: SREEDHAR Non-Admin Reason: IV Running Tamsulosin HCl (Tamsulosin Hcl 0.4 Mg Capsule) 0.4 mg PO DAILY [facility] Last Admin: 01/07/25 17:02 Dose: 0.4 mg Documented By: WAYNE Thiamine HCl (Thiamine Hcl 100 Mg Tablet) 100 mg PO DAILY [facility] Last Admin: 01/07/25 17:02 Dose: 100 mg Documented By: WAYNE Trimethoprim/Sulfamethoxazole (Sulfamethox/Trimeth 800/160 Tablet) 1 tab PO Q12H [facility] Labs 01/07/25 04:28 01/07/25 04:28 Labs: Laboratory Results - last 24 hr 01/07/25 09:17 Urine Osmolality 262 L Ur Random Sodium 25.0 Microbiology Microbiology Results: Microbiology 01/06/25 Unknown Urine Culture - Final Urine clean catch - Clean Catch Midstream Escherichia coli 01/06/25 11:46 Blood Culture - Preliminary Blood - Venous No growth after 24 hours. 01/06/25 11:40 Blood Culture - Preliminary Blood - Venous No growth after 24 hours. Quality Stroke Does the patient have a stroke diagnosis?: No Reason for No Anti-thrombotic by Day Two: N/A - Med Ordered VTE Prior VTE?: No VTE Risk Level:: Medical - moderate - high VTE Device Contraindication: N/A - Device Ordered VTE Drug Contraindication: N/A - Med Ordered
[2025-01-08] MEDS: Sulfamethox/Trimeth 800/160 TABLET 1 TAB PO (09:31)
[2025-01-08] MEDS: Aspirin Enteric Coated 81 MG TABLET.DR PO (09:31)
[2025-01-08] MEDS: Milk of Magnesia 30 ML ORAL.SUSP PO (09:40)
--- NOTE | 2025-01-08 10:49 | MHC.CARE ---
Pt evaluated by CARE team at bedside. Pt meets the criteria for IPLOC at this time. Section 12a in chart. Hospitalist in agreement.
--- NOTE | 2025-01-08 11:03 | PM.UROCN ---
History of Present Illness Consult details Consult date: 01/08/25 Narrative: CC: Urinary retention 64-year-old female Past medical history significant for bipolar disorder, spinal fusion, compression fractures in the thoracic, urinary incontinence. Brought in by ambulance to emergency department for psychiatric evaluation after she was aggressive towards her brother with whom she lives. Stop taking psychiatric meds 2 days prior. On evaluation found to be hypotensive and tachycardic. Received 4 L of fluid with slow resolution of BP. During admission has had difficulty with urination. Straight catheterization for 150, 950, 900 cc. Ferreira catheter placed for [address] imaging shows large dilated bladder. Prior pelvic ultrasound showed dilated bladder. Thin-walled. Likely has impaired contractility secondary to long-term use of psychiatric medications with known anticholinergic side effects. May attempt low-dose alpha-baldemar with bethanechol for bladder emptying improvement. Likely that may require intermittent catheterization teaching. Review of Systems Constitutional: Constitutional: Reports as per HPI and Reports no additional constitutional complaints Cardiovascular: Cardiovascular: Reports as per HPI and Reports no additional cardiovascular complaints Respiratory: Respiratory: Reports as per HPI and Reports no additional respiratory complaints Gastrointestinal: Gastrointestinal: Reports as per HPI and Reports no additional gastrointestinal complaints Genitourinary: Genitourinary: Reports as per HPI Musculoskeletal: Musculoskeletal: Reports no additional musculoskeletal complaints and Reports as per HPI Neurologic: Reports system reviewed and no additional complaints, except as documented and Reports as per HPI [facility] Past Medical History Medical History PTSD (post-traumatic stress disorder) Labile hypertension Leiomyoma Bipolar I disorder Tinea unguium History of psychogenic nonepileptic seizure Impaired fasting glucose Dyslipidemia (high LDL; low HDL) Hx of suicide attempt On beta baldemar at home Arthritis Anxiety Diastasis recti Umbilical hernia Compression fracture of L1 lumbar vertebra Dupuytren's contracture of left hand Lumbar disc herniation Essential hypertension Ventral hernia Urinary incontinence Family History Family History Father Diabetes mellitus Mother COPD (chronic obstructive pulmonary disease) Sister Diabetes mellitus Glaucoma Other Mental health disorder Substance use disorder Surgical History Surgical History H/O shoulder surgery Hx of elbow surgery Hx of repair of left rotator cuff Hx of colonoscopy History of lumbar fusion Social History Social History Household Members: Family Household Members Other:: brother Housing: House Are you a primary physician primary care sports medicine to a significant other at home: No Do you presently have visiting nurse or other home services: Yes Unable to assess alcohol history related to: Refusing to respond Alcohol intake: current Alcohol intake frequency: holidays/special occasions only Comment: 1 to 1 sitter Patient Tobacco Use Status: Former Tobacco user Tobacco use type: Cigarette Cigarette Packs Per Day: 1 Cigarettes Per Day: 20.0 e-Cigarette/Vaping Use: Never Used Second Hand Smoke Exposure: No Substance Use Type: Marijuana Currently Displaying Signs/Symptoms of Drug Intoxication Withdrawal: No Have you been hit, kicked, punched, or otherwise hurt by someone within the past year? If so, by whom?: No Do you feel safe in your current relationship?: No Current Relationship Are you made to feel afraid or neglected: Yes (lives with brother) Advance Directives: Yes Advance Directives on File: Yes Advance Directives Date on File: 11/26/22 Do you have a plan to hurt others: No Plan Recently lost weight without trying: Yes Eating poorly because of decreased appetite: Yes Nutrition Risks: Dental problems and Difficulty chewing Patient : No : No Poor oral hygiene: No service: No Current occupational status: disabled Sexual orientation: Straight/Heterosexual Cognitive needs: No Hearing needs: No Vision needs: No Meds Allergies Allergy/AdvReac Type Severity Reaction Status Date / Time olanzapine AdvReac Severe visual Verified 01/06/25 10:30 changes carbamazepine (From Tegretol) AdvReac Intermediate Hyponatremi Verified 01/06/25 10:30 a divalproex sodium (From AdvReac Mild hyperammone Verified 01/06/25 10:30 Depakote) yoan gabapentin AdvReac Mild Unknown Verified 01/06/25 10:30 trazodone AdvReac Mild groggy Verified 01/06/25 10:30 Active Medications: Current Medications Acetaminophen (Acetaminophen 325 Mg Tablet) 650 mg PO Q6H PRN PRN Reason: Pain, Mild 1-3,fever,headache Albuterol/Ipratropium (Albuterol/Iprat 2.5/0.5mg 3 Ml Ampul.Neb) 3 ml INHALE Q4H PRN PRN Reason: Shortness of Breath/Wheezing Aspirin (Aspirin Enteric Coated 81 Mg Tablet.Dr) 81 mg PO DAILY [facility] Last Admin: 01/08/25 09:31 Dose: 81 mg Atorvastatin Calcium (Atorvastatin Calcium 40 Mg Tablet) 40 mg PO DAILY [facility] Last Admin: 01/08/25 09:31 Dose: 40 mg Benztropine Mesylate (Benztropine Mesylate 0.5 Mg Tablet) 0.5 mg PO BEDTIME [facility] Last Admin: 01/07/25 20:30 Dose: 0.5 mg Calcium Carbonate (Calcium Carbonate 750 Mg Tab.Chew) 750 mg PO Q4H PRN PRN Reason: Heartburn Carvedilol (Carvedilol 6.25 Mg Tablet) 6.25 - 18.75 mg PO BID PRN; Protocol PRN Reason: HYPERTENSION Clonidine HCl (Clonidine Hcl 0.1 Mg Tablet) 0.1 mg PO BID PRN; Protocol PRN Reason: Anxiety Docusate Sodium (Docusate Sodium 100 Mg Capsule) 100 mg PO DAILY PRN PRN Reason: Constipation Last Admin: 01/07/25 17:06 Dose: 100 mg Enoxaparin Sodium (Enoxaparin Sodium 40 Mg/0.4 Ml Syringe) 40 mg SUBCUT Q24H [facility] Last Admin: 01/08/25 09:31 Dose: 40 mg Folic Acid (Folic Acid 1 Mg Tablet) 1 mg PO DAILY [facility] Last Admin: 01/08/25 09:31 Dose: 1 mg Sodium Chloride (Ns) 1,000 mls @ 125 mls/hr IVCONT .Q8H [facility] On Hold: 01/08/25 08:55 Last Infusion: 01/08/25 09:43 Dose: 0 mls/hr Lamotrigine (Lamotrigine 100 Mg Tablet) 150 mg PO DAILY [facility] Last Admin: 01/08/25 09:33 Dose: Not Given Lurasidone HCl (Lurasidone Hcl 80 Mg Tablet) 80 mg PO DAILY [facility] Last Admin: 01/08/25 09:31 Dose: 80 mg Magnesium Hydroxide (Milk Of Magnesia 30 Ml Oral.Susp) 30 ml PO DAILY PRN PRN Reason: Constipation Last Admin: 01/08/25 09:40 Dose: 30 ml Melatonin (Melatonin 3 Mg Tablet) 6 mg PO BEDTIME PRN PRN Reason: Insomnia Last Admin: 01/07/25 23:45 Dose: 6 mg Ondansetron HCl (Ondansetron Hcl 4 Mg/2 Ml Vial) 4 mg IVPUSH Q8H PRN PRN Reason: Nausea and Vomiting Polyethylene Glycol (Polyethylene Glycol 3350 17 Gm Powd.Pack) 17 gm PO DAILY PRN PRN Reason: Constipation Senna (Sennosides 8.6 Mg Tablet) 17.2 mg PO BEDTIME [facility] Last Admin: 01/07/25 20:30 Dose: 17.2 mg Sodium Chloride (0.9 % Sodium Chloride Flush 3 Ml Syringe) 3 ml IVFLUSH QSHIFT [facility] Last Admin: 01/08/25 09:33 Dose: Not Given Tamsulosin HCl (Tamsulosin Hcl 0.4 Mg Capsule) 0.4 mg PO DAILY [facility] Last Admin: 01/08/25 09:31 Dose: 0.4 mg Thiamine HCl (Thiamine Hcl 100 Mg Tablet) 100 mg PO DAILY [facility] Last Admin: 01/08/25 09:31 Dose: 100 mg Trimethoprim/Sulfamethoxazole (Sulfamethox/Trimeth 800/160 Tablet) 1 tab PO Q12H [facility] Last Admin: 01/08/25 09:31 Dose: 1 tab Home Medications ?Medication ?Instructions ?Recorded ?Confirmed ?Last Taken ?Type atorvastatin 40 mg tablet 40 mg PO DAILY 11/25/24 01/06/25 11/26/24 08:49 History docusate sodium 100 mg capsule 100 mg PO DAILY PRN Constipation 11/25/24 01/06/25 11/25/24 17:31 History benztropine 0.5 mg tablet 0.5 mg PO BEDTIME 01/06/25 01/06/25 Unknown History lamotrigine 25 mg tablet 150 mg PO DAILY 01/06/25 01/07/25 Unknown History lurasidone 80 mg tablet 80 mg PO DAILY 01/06/25 01/06/25 Unknown History aspirin 81 mg tablet,delayed 81 mg PO DAILY 01/07/25 01/07/25 Unknown History release multivitamin with folic acid 400 1 tab PO DAILY 01/07/25 01/07/25 Unknown History mcg tablet (Daily-Ni (with folic acid)) thiamine HCl (vitamin B1) 100 mg 100 mg PO DAILY 01/07/25 01/07/25 Unknown History tablet Physical Exam Vital Signs: Vital Signs: Last Vital Signs Temp 97.9 F 01/08/25 08:00 Pulse 84 01/08/25 08:00 Resp 16 01/08/25 08:00 BP 152/81 H 01/08/25 08:00 Pulse Ox 99 01/08/25 08:00 O2 Del Method Room Air 01/08/25 08:00 BMI result Body Mass Index 22.8 Const: General: cooperative, healthy appearing, comfortable and no acute distress Orientation/consciousness: patient oriented x3 HEENT: Face and sinus: Yes normal facial exam Mouth: moist mucous membranes Neck: Neck: Yes normal visual inspection, Yes full ROM and Yes trachea midline Chest: Chest palpation & inspection: normal inspection of the chest Resp: Effort & Inspection: normal respiratory effort, able to speak in complete sentences and no respiratory distress GI: Inspection: Yes normal to inspection Back/Spine/Pelvis: Cervical Spine: normal cervical lordosis Thoracic/Lumbar Spine: thoracic and lumbar spine normal to inspection Skin: General skin exam: no rashes or lesions noted Neuro: General: patient oriented x3, tone normal and moves all extremities Extrem: General: Yes normal to inspection and Yes capillary refill normal Results Labs 01/07/25 04:28 01/07/25 04:28 Labs: Urine 01/06/25 Range/Units 11:56 Urine Color Dark Yellow Urine Appearance Clear Urine pH 5.5 (5.0-9.0) Ur Specific Mcdaniel 1.020 (1.005-1.025) Urine Protein 30 (1+) H (Neg-Trace) mg/dL Urine Glucose (UA) Negative (Negative) mg/dL All other labs normal. Assessment and Plan (1) Urinary retention with incomplete bladder emptying: Status: Acute Plan Trial alpha-baldemar with bethanechol Voiding trial in 2 weeks May do better with clean intermittent catheterization Procedures Date of Service Date of Service: 01/08/25
[2025-01-08 12:00] VITALS: BP 141/72; PULSE 102; RESP 18; TEMP 36.9; O2SAT 96
--- NOTE | 2025-01-08 13:41 | PM.DS ---
DS: Providers Provider Date of Service: 01/08/25 Date of admission: 01/07/25 01:47 Date of discharge: 01/08/25 Primary care physician: Unknown Physician Consults: 01/06/25 10:27 ED CARE Team Crisis Consult Stat Comment: Reason for consultation: [place]oz, [place] 01/07/25 02:15 Consult to Psychiatry Routine Consulting Provider: [facility] [place] Psych Covering Reason for consultation: unable to be medically cleared, section 12 CPD, 1:[address] 01/07/25 16:08 Consult to Urology Routine Consulting Provider: [facility] [place] Urology Services Reason for consultation: Acute urinary retension, s/p Staright cath X2 01/08/25 08:56 Inpt CARE Team Crisis Consult Routine Comment: Reason for consultation: medically optimized DS: Diagnosis Discharge Diagnosis (1) Urinary retention with incomplete bladder emptying: Status: Acute DS: Summary Hospital Course Hospital Course: Per H&P: Chief Complaint: sepsis, hypotension, dehydration, lactic acidosis, hyponatremia Pt is a 64 yo female with PMH PTSD, Bipolar 1 disorder, anxiety, Insomnia, psychogenic nonepileptic seizures, Dyslipidemia, HTN, OA, fusion L4-S1, compression fractures L1, T9, T12, Leiomyoma, urinary incontinence was BIBA to ED into Psychiatry POD for evaluation after pt became agressive with her brother, whom she lives with to include [place] with evidence of roz. Pt states on admission that she stopped taking all of her psychiatric meds 2 days ago because the medication are not helping. Pt follows with [facility]. During the interim of pt being accepted for inpt admission to (Psych) on section 12, pt found to be hypotensive, tachycardic with LA 3.9 and leukocytosis. Work up ensued and pt met cirteria for sepsis and received 4 L of fluids and BP has slowly improved.MAPS now above 65. CK 398. Na 130. After fluids, LA now 1.0. Pt is awake and alert and cooperative but when pt starts talking about her brother, becomes slightly manic and states she is not going back there to live with him. CT chest and Chest xray negative for acute pulmonary findings. Atelectasis noted. Adding COVID, RSV and Flu testing. UA sent for culture but low threshold for UT based on UA. CT ABD PELVIS negative for acute cystitis. Pt found to have diverticulosis without diverticulitis. Cervix enlarged secondary to known fibroid. Head CT negative. ECG initially ST, Prolonged Qtc 519. Plan is to admit pt for sepsis (source unknown), hypotension, hyponatremia and eventual transfer to inpt psychiatric care with psychiatric consult pending. Hospital course: 64 yo female with PMH PTSD, Bipolar 1 disorder, anxiety, Insomnia, psychogenic nonepileptic seizures, Dyslipidemia, HTN, OA, fusion L4-S1, compression fractures L1, T9, T12, Leiomyoma, urinary incontinence was BIBA to ED into Psychiatry POD for evaluation after pt became agressive with her brother, whom she lives with to include [place] with evidence of roz, was admitted to medicine as she became hypotensive with elevated lactic acid and hyponatremia and sepsis workup initiated in his currently being worked Sepsis of unclear etiology Follow sepsis workup thus far it has been unremarkable Lactic acid can be explained from agitation, CPK elevated Patient had psychiatric manic episode after stopping her meds 2 days prior to admission She is being treated with Bactrim 5 more days to complete 7 day course of antibiotics Hypotension Resolved with fluids, encourage fluids at psych floor Acute urinary retention Unclear etiology Failed straight cath x2 Continues to retain Ferreira for now , urology consulted and she has a Ferreira catheter, can trial voiding trials after a day Flomax ordered PTSD Bipolar Insomnia, anxiety Psychogenic nonepileptic seizures Manic episode Active homicidal ideation towards brother Continue home meds Psych consult Care consult Hyponatremia Likely secondary to psychiatric versus SIADH We will check urine lytes Continue salt tablets home meds Rhabdomyolysis Likely secondary to manic episode Encourage p.o. intake no need to trend Prolonged QTC improved post magnesium and fluids resolved Recheck once more today Bipolar 1 disorder/ Roz/ [place]/ Section 12 Plan per psychiatry yet to see the patient Pt is section 12 from [facility] [employer] Pt stopped taking her psychiatric meds 2 days prior to admission 1:[address] DVT Prophylaxis: lovenox Code status full code The optimized, patient being transferred to M3 psych Time spent discussing smoking cessation with patient: more than 10 minutes Status at Discharge Functional status at discharge: independent ambulation Overall status at discharge: patient is progressing back to baseline Time Attestation Discharge Coordination Time (in mins): 75 Quality: Safe Use of Opioids Does Pt have an Active Cancer Diagnosis on the Problem List?: No Quality: Stroke Does the patient have a stroke diagnosis?: No Physical Exam Vital Signs: Vital Signs: Last Vital Signs Temp 98.5 F 01/08/25 12:00 Pulse 102 H 01/08/25 12:00 Resp 18 01/08/25 12:00 BP 141/72 H 01/08/25 12:00 Pulse Ox 96 01/08/25 12:00 O2 Del Method Room Air 01/08/25 12:00 BMI result Body Mass Index 22.8 DS: Data Data Completed and Pending Labs on day of discharge: Preliminary micro results at discharge 01/06/25 11:46 Blood Culture - Preliminary Blood - Venous No growth after 24 hours. 01/06/25 11:40 Blood Culture - Preliminary Blood - Venous No growth after 24 hours. Discharge Plan Discharge Patient Disposition: Xfer Psychiatric Hosp Referrals: Physician,Unknown J [Primary Care Provider, Medical] - 1 Week Discharge Medications: New ipratropium-albuterol 0.5 mg-3 mg(2.5 mg base)/3 mL Solution For Nebulization 3 ml inhalation Q4H PRN (Reason: Shortness Of Breath/Wheezing) Qty: 90 0RF sulfamethoxazole-trimethoprim 800-160 mg Tablet 1 tab PO Q12H 5 Days Qty: 10 0RF bethanechol chloride 25 mg Tablet 50 mg PO BID 7 Days Qty: 28 0RF tamsulosin 0.4 mg Capsule 0.4 mg PO DAILY Qty: 14 0RF Continued carvedilol 6.25 mg tablet 18.75 mg PO BID 30 Days Qty: 180 1RF Protocol: Hold for SBP/HR < HOLD for SBP < : 90 HOLD for HR < : 60 atorvastatin 40 mg tablet 40 mg PO DAILY docusate sodium 100 mg capsule 100 mg PO DAILY PRN (Reason: Constipation) sodium chloride 1,000 mg Tablet,Soluble 1,000 mg PO BID 30 Days Qty: 60 0RF folic acid 1 mg Tablet 1 mg PO DAILY 30 Days Qty: 30 0RF clonidine HCl 0.1 mg Tablet 0.1 mg PO BID PRN (Reason: Anxiety) Qty: 3 0RF Protocol: Hold for SBP< HOLD for SBP < : 90 lamotrigine 25 mg tablet 150 mg PO DAILY benztropine 0.5 mg tablet 0.5 mg PO BEDTIME lurasidone 80 mg tablet 80 mg PO DAILY thiamine HCl (vitamin B1) 100 mg tablet 100 mg PO DAILY aspirin 81 mg tablet,delayed release (DR/EC) 81 mg PO DAILY multivitamin with folic acid [Daily-Ni (with folic acid)] 400 mcg tablet 1 tab PO DAILY Discharge Orders: Discharge Order (Routine); Ordered 01/08/25 Ordered By: Emma Lopez Diet: Advance to usual diet Activity on Discharge: As tolerated Stand Alone Forms: Patient Portal Discharge page Print Language: Sami
[2025-01-08 14:37] LABS: Alanine Aminotransferase 39 U/L (0-31); Albumin Level 4.0 g/dL (3.5-5.0); Alkaline Phosphatase 71 U/L (39-117); Anion Gap 11 (12-20); Aspartate Amino Transferase 49 U/L (5-31); Blood Urea Nitrogen 7 mg/dL (9-16); Calcium 8.4 mg/dL (8.4-10.2); Carbon Dioxide 24 mmol/L (22-29); Chloride 101 mmol/L (96-108); Creatinine Clr Calc Pharmacy 83.6; Estimated Glomerular Filt Rate > 60; Potassium 3.1 mmol/L (3.3-5.1); Sodium 133 mmol/L (135-145); Total Protein 6.3 g/dL (6.5-8.0)
== END 2025-01-08 14:15 | DRG 872 ==
LOC: HO.ED 14:22 → HO.PADLT16 15:08 → HO.EDOVER 01-07 01:51 → HO.IMC 01-07 07:37
PROVIDERS: Emergency Medicine; Nurse Practitioner Family; Admitting Provider Internal Medicine; Emergency Provider Student in an Organized Health Care Education/Training Program; PCP Internal Medicine; Visit Provider Student in an Organized Health Care Education/Training Program
DX: A41.9 Sepsis, unspecified organism (principal); J98.11 Atelectasis; E22.2 Syndrome of inappropriate secretion of antidiuretic hormone; M62.82 Rhabdomyolysis; F31.10 Bipolar disorder, current episode manic without psychotic features, unspecified; E87.21 Acute metabolic acidosis; Z20.822 Contact with and (suspected) exposure to COVID-19; Z98.1 Arthrodesis status; F43.10 Post-traumatic stress disorder, unspecified; F41.9 Anxiety disorder, unspecified; R56.9 Unspecified convulsions; E86.0 Dehydration; I95.9 Hypotension, unspecified; R33.9 Retention of urine, unspecified; R45.850 Homicidal ideations; R94.31 Abnormal electrocardiogram [ECG] [EKG]; Z87.891 Personal history of nicotine dependence; Z79.82 Long term (current) use of aspirin; Z79.899 Other long term (current) drug therapy
CPT/HCPCS: 36415; 70450; 71045; 71260; 74177; 80048; 80053; 80307; 81001; 82550; 82803; 83605; 83735; 83930; 83935; 84300; 84443; 85025; 87040; 87086; 87088; 87186; 87637; 93005; 99285; J0696; J1630; J1650; J2250; J3360; J3475; P9047; Q9967; S9485

== ENCOUNTER → 2025-01-06 13:51 | Outpatient (BNV) | payer OTHER, SELFPAY | PROVIDERS: Admitting Provider Internal Medicine; Emergency Provider Student in an Organized Health Care Education/Training Program; Visit Provider Internal Medicine Cardiovascular Disease | DX: I25.2 Old myocardial infarction (principal); R00.0 Tachycardia, unspecified | CPT/HCPCS: 93010 ==

== ENCOUNTER → 2025-01-06 16:20 | Outpatient (BNV) | payer OTHER, SELFPAY | PROVIDERS: Emergency Provider Emergency Medicine; Visit Provider Radiology Diagnostic Radiology | DX: S22.070A Wedge compression fracture of T9-T10 vertebra, initial encounter for closed fracture (principal); R41.82 Altered mental status, unspecified | CPT/HCPCS: 70450; 71260 ==

== ENCOUNTER 2025-01-07 01:47 | Outpatient (BNV) | payer OTHER, SELFPAY | END 2025-01-07 17:35 | PROVIDERS: Admitting Provider Internal Medicine; Emergency Provider Student in an Organized Health Care Education/Training Program; Visit Provider Internal Medicine Cardiovascular Disease | DX: I25.2 Old myocardial infarction (principal) | CPT/HCPCS: 93010 ==

== ENCOUNTER → 2025-01-07 01:47 | Outpatient (BNV) | payer OTHER, SELFPAY | PROVIDERS: Admitting Provider Internal Medicine; Emergency Provider Student in an Organized Health Care Education/Training Program; Visit Provider Urology | DX: R33.9 Retention of urine, unspecified (principal) | CPT/HCPCS: 99223 ==

== ENCOUNTER → 2025-01-07 01:47 | Outpatient (BNV) | payer OTHER, SELFPAY | PROVIDERS: Admitting Provider Internal Medicine; Emergency Provider Student in an Organized Health Care Education/Training Program; Visit Provider Student in an Organized Health Care Education/Training Program | DX: R33.9 Retention of urine, unspecified (principal) | CPT/HCPCS: 99239 ==

== ENCOUNTER 2025-01-08 14:32 | Outpatient (BNV) | payer OTHER, SELFPAY | END 2025-01-25 18:18 | PROVIDERS: Admitting Provider Social Worker; Visit Provider Radiology Diagnostic Radiology | DX: R94.5 Abnormal results of liver function studies (principal) | CPT/HCPCS: 76705 ==

== ENCOUNTER → 2025-01-08 14:32 | Outpatient (BNV) | payer OTHER, SELFPAY | PROVIDERS: Admitting Provider Social Worker; Visit Provider Psychiatry & Neurology Psychiatry | DX: F31.12 Bipolar disorder, current episode manic without psychotic features, moderate (principal) | CPT/HCPCS: 99232 ==

== ENCOUNTER → 2025-01-08 14:32 | Outpatient (BNV) | payer OTHER, SELFPAY | PROVIDERS: Admitting Provider Social Worker; Visit Provider Nurse Practitioner Family | DX: E87.1 Hypo-osmolality and hyponatremia (principal); R33.9 Retention of urine, unspecified | CPT/HCPCS: 99221 ==

== ENCOUNTER → 2025-01-08 14:32 | Outpatient (BNV) | payer OTHER, SELFPAY | PROVIDERS: Admitting Provider Social Worker; Visit Provider Social Worker | DX: F31.12 Bipolar disorder, current episode manic without psychotic features, moderate (principal) | CPT/HCPCS: 90792; 99231; 99232; 99499 ==